=== PATIENT | female | born 1960 | race Caucasian/White ===

== ENCOUNTER 2024-01-21 10:43 | Outpatient (AMB) | payer MEDICARE, SELFPAY ==
[2024-01-21 11:07] VITALS: BP 130/72; PULSE 90; O2SAT 96; BMI 19.6
--- NOTE | 2024-01-21 11:07 | A.OFFVIS_ITS ---
Vital Signs 01/21/24 11:07 Height 5 ft 2 in Weight 107 lb 3 oz BMI 19.6 BP 130/72 Blood Pressure Location Lt brachial Position Sitting Pulse 90 Pulse Source Pulse Oximeter Pulse Oximetry (%) 96 Oxygen Delivery Method Room Air Intake Visit Reasons: arth/CM apt Intake Note: Patient presents today for psoriatic arthritis. Allergies dexamethasone [From Decadron] Allergy (Intermediate, Verified 01/21/24 11:10) Itchy rash medical tapes Adverse Reaction (Mild, Uncoded 01/21/24 11:11) Rash HPI HPI arth/CM apt: Details: She has not had Enbrel for a week as she does not have any refills. Since being on Enbrel for at least 6 months she has had no benefit. Hands are swollen. She has decreased mobility. Hard to move arms. 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 [facility] Medical History (Updated 01/21/24 @ 11:46 by Aoln Viera MD) Psoriatic arthritis Low back pain Bilateral cataracts FH: cholecystectomy Ulnar nerve compression Surgical History (Updated 01/21/24 @ 11:27 by Courtney Ron CMA) History of hysterectomy S/P tonsillectomy Previous back surgery Review of Systems Const All systems reviewed & are unremarkable except as noted in HPI and below Physical Exam Vital Signs: Last Vital Signs Pulse 90 01/21/24 11:07 BP 130/72 01/21/24 11:07 Pulse Ox 96 01/21/24 11:07 Oxygen Delivery Method Room Air 01/21/24 11:07 BMI result Body Mass Index 19.6 Assessment & Plan Assessment & Plan (1) Psoriatic arthritis: Comment: Uncontrolled on monotherapy with Enbrel. She has had treatment failure. We discussed next steps in treatment with DMARD therapy. We discussed side effects, benefits and drug monitoring on Cosentyx. We will treat current symptoms with a course of prednisone. She has tolerated prednisone without any side effects or exacerbation of psoriasis. 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 Code(s): L40.50 - Arthropathic psoriasis, unspecified Category: Medical Plan: Labs for disease and drug monitoring on high-risk medication ordered. After lab results are back, we will send PA for Cosentyx to [facility] pharmacy. As soon as she receives Cosentyx, she will need nurse visit for teaching and labs ordered a month after starting Cosentyx. Return to clinic in 3 months Requesting records from [facility] Orders: Orders Alanine Aminotransferase Today L40.50 - Arthropathic psoriasis, unspecified Aspartate Amino Transferase Today L40.50 - Arthropathic psoriasis, unspecified C Reactive Protein Today L40.50 - Arthropathic psoriasis, unspecified T Spot TB Today L40.50 - Arthropathic psoriasis, unspecified Erythrocyte Sedimentation Rate Today L40.50 - Arthropathic psoriasis, unspecified Hepatitis B,C Profile Today L40.50 - Arthropathic psoriasis, unspecified Complete Blood Count Auto Diff Today L40.50 - Arthropathic psoriasis, unspecified Creatinine Today L40.50 - Arthropathic psoriasis, unspecified Medications: New prednisone Take 4 tablets daily 5 days, 3 tablets daily 5 days, 2 tablets daily 5 days, 1 tablet daily 5 days then stop. Take prednisone with food. 5 mg PO DIRECTED 50 tabs 0RF Coding Level of Care Code Est Pt Level 4 (23126) Complex EM visit Add On G2211 Diagnoses Psoriatic arthritis L40.50
--- OUTSIDE RECORDS SUMMARY | 2024-01-27 01:42 | XMS_ITS | Continuity of Care Document ---
Author Organization [facility], Main Office Address [address] [place] [address] Care Team Providers Care Fire Prevention Specialist Name Role Phone JOEL DAO Outpatient Therapist VALENTÍN MONTERO Psychiatrist KESHIA COOPER [employer] [place] LARA Primary Care Provider CORWIN DAVISON Outpatient Therapist [phone] RANDI CAMARENA Neurophysiologist [phone] JASON ONEAL Pain Management DANIEL BENJAMIN Geriatric Medicine SHADI CARVALHO Neuropsychologist [phone] Assessment No assessment recorded. Plan of Treatment Reminders Order Date Submit Date Provider Last Modified By Organization Details Last Modified Time Details Appointments Follow Up DM 30 2024 10:30A M Ky Lara PA-C Not available Not available Not available AWV30 2024 10:30A M Ky Lara PA-C Not available Not available Not available Lab lipid panel, serum 2023 ANDREW [facility], [address] , [address], [address], 11/23/2023 11:22:03 CK (creatine kinase), total, serum 2023 024 ANDREW [facility], [address] , [address], [place], [address], 11/23/2023 11:22:03 Referral None recorded. Procedures None recorded. Surgeries None recorded. Imaging None recorded. Medication Orders albuterol sulfate HFA 90 mcg/actua tion aerosol inhaler 2023 [id number] [address] [facility][id number], [address] [place], [place], [id number], 11/26/2023 01:14:53 cyclobenz aprine 5 mg tablet 2023 [facility] #[id number], [address] [place], [place], [id number], 11/23/2023 11:22:01 pantopraz ole 40 mg tablet,de layed release 2023 [facility] #[id number], [address] [place], [place], [id number], 11/23/2023 11:22:01 Patient Targets Encounter Date Encounter Id Patient Goals Patient Target Last Modified By Organization Details Last Modified Time 11/23/2023 [id number] Ongoing of Microalbumin/Cre atinine Ratio yearly Not available Not available Not available Ongoing of Blood Pressure Not available Not available Not available Ongoing of Hemoglobin A1C 2 times per yr Not available Not available Not available Ongoing of Hemoglobin A1C <7 Not available Not available Not available Ongoing of LDL Direct <100 Not available Not available Not available Ongoing of Cholesterol, LDL <100 Not available Not available Not available Pt advised and agrees to do moderate exercise (such as walking) for approximately 150 minutes per week; to decrease carbohydrate intake (25 % of total carbohydrates or less); and to monitor blood glucose as directed Will bring meter and/or readings to appointments. Patient preferences and goals incorporated in plan and updated/modified as needed to reflect progress toward goal. [email or web address] Not available 11/23/2023 11:14:05 Patient Instructions Encounter Date Encounter Id Patient Instructions Last Modified By Organization Details Last Modified Time 11/23/2023 [id number] Medications (OTC , herbal therapies, supplements) reviewed and reconciled with patient and or caregiver, including potential side effects, drug interactions, instructions, and the consequences of not taking medication. Reviewed potential barriers to medication adherence, such as side effects from medication or cost of medication. [email or web address] Not available 11/23/2023 11:21:58 Reason for Referral None Reported. Problems Name Problem SNOMED Code Status Onset Date Resolution Date Notes Provider Name and Address Organization Details Recorded Time Electroc karen elliott abnormal [id number] Completed 200708/30/2013 RECORDED 10/01/19 08 8:29AM BY MARLYS MILAN MA, ANNOTATI ON/ADDEN DUM MEDINA Rouse, [facility] 6 10:51:32 Acute asthma 516558176 Completed 201208/30/2013 RECORDED 06/25/19 13 2:34PM BY MARLYS MILAN MA, ANNOTATI ON/ADDEN DUM MEDINA Rouse, [facility] 6 10:51:32 Acute bronchit is 86956388 Completed 200708/30/2013 RECORDED 10/01/19 08 8:29AM BY MARLYS MILAN MA, ANNOTSILVER ON/ADDEN DUM MEDINA Rouse, [facility] 6 10:51:32 Acute sinusiti s 98489591 Completed 201208/30/2013 RECORDED 06/25/19 13 2:34PM BY MARLYS MILAN MA, ANNOTSILVER ON/ADDEN DUM MEDINA Rouse, [facility] 6 10:42:01 Asthma 281980604 Active Not Available [facility] 4 19:50:26 Intrinsi c asthma 746317181 Completed 201108/30/2013 RECORDED 09/04/19 12 12:56PM BY MARLYS MILAN MA, ANNOTSILVER ON/ADDEN DUM MEDINA Rouse, [facility] 6 10:51:32 Screenin g for malignan t neoplasm of breast Completed 201208/30/2013 RECORDED 09/21/19 13 12:45PM BY ARLIN LIGHT MA, ANNOTATI ON/ADDEN DUM MEDINA Rouse, [facility] 6 10:51:32 Cellulit is and abscess of face [id number] Completed 200808/30/2013 RESOLVED DATE: 07/04/19 09; IMPRESSI ON: PT IS IMMUNE SUPPRESS ED WITH HUMIRA FOR RA, TREAT WITH LEVAQUIN ; RECORDED 07/04/19 09 9:11PM BY JORGE Rai NP, ANNOTSILVER ON/ADDEN DUM MEDINA Rouse, [facility] 6 10:51:32 Chronic pain syndrome 038739983 Active Not Available [facility] 4 19:50:26 Chronic pain syndrome 541953162 Completed 201208/30/2013 RECORDED 03/17/19 13 9:38AM BY MARLYS MILNA MA, MIGDALIA ON/ADDEN DUM MEDINA Rouse, [facility] 6 10:51:32 Screenin g for malignan t neoplasm of colon Completed 201108/30/2013 RECORDED 09/04/19 12 12:56PM BY MARLYS MILAN MA, ANNOTATI ON/ADDEN DUM MEDINA Rouse, [facility] 6 10:51:32 Cough 75168844 Completed 201208/30/2013 RECORDED 06/25/19 13 2:34PM BY MARLYS MILAN MA, ANNOTATI ON/ADDEN DUM MEDINA Rouse, [facility] 6 10:51:32 General symptom 586292699 Completed 201108/30/2013 STORY: SIGNIFIC ANT DECREASE IN EXERCISE TOLERANC E WITH TACHYCAR DEANNA.; RECORDED 09/04/19 12 12:56PM BY MARLYS MILAN MA, ANNOTATI ON/ADDEN DUM MEDINA Rouse, [facility] 6 10:51:32 Depressi ve disorder 94302183 Completed 02/26/2015 Meme Fernandez ruth, [facility] 4 15:15:46 Type 2 diabetes mellitus without complica tion 464862131 Completed 05/01/2017 MEDINA Rouse, [facility] 9 11:30:03 Diarrhea 46952540 Completed 201208/30/2013 IMPRESSI ON: RESOLVIN G PER PT. HAD A FORMED STOOL. SHE DID NOT DO THE STOOL TESTING AND WILL HOLD OFF SINCE DOES NOT HAVE LIQUID STOOL.; RECORDED 03/17/19 13 9:35AM BY MARLYS MILAN MA, MIGDALIA ON/ADDEN DUM MEDINA Rouse, [facility] 6 10:42:42 Dysphagi a [id number] Completed 200708/30/2013 RESOLVED DATE: 01/20/20 08; RECORDED 01/20/20 08 4:23PM BY JORGE Rai NP, MIGDALIA ON/ADDEN DUM MEDINA Rouse, [facility] 6 10:51:32 Edema 735065193 Completed 201208/30/2013 RECORDED 09/21/19 13 12:45PM BY ARLIN LIGHT MA, MIGDALIA ON/ADDEN DUM MEDINA Rouse, [facility] 6 10:51:32 Long-ter m drug therapy Completed 201208/30/2013 RECORDED 05/19/19 13 12:57PM BY MARLYS MILAN MA, MIGDALIA ON/ADDEN DUM MEDINA Rouse, [facility] 6 10:51:32 Gastroes ophageal reflux disease 199317516 Active Not Available [facility] 4 19:50:26 Essentia l hyperten kris 46775664 Completed 03/15/2022 Ky Lara PA-C [address] [facility] [address], [place], [address] , [facility] 3 10:04:39 Exophtha lmos 54486927 Completed 201108/30/2013 RECORDED 09/04/19 12 12:56PM BY MARLYS MILAN MA, MIGDALIA ON/ADDEN DUM MEDINA Rouse, [facility] 6 10:51:32 Influenz a vaccine needed [id number] 06 Completed 201208/30/2013 RECORDED 10/23/19 13 4:09PM BY AUDIE OLIVARES, OFFICE VISIT MEDINA Rouse [facility] 6 10:51:32 Tobacco user 404392848 Completed 08/29/2015 MEDINA Rouse, [facility] 6 09:59:57 History of clinical finding in subject 865256293 Completed 01/29/2016 MEDINA Rouse, [facility] 6 10:42:37 Adult health examinat ion Completed 01/29/2016 MEDINA Rouse [facility] 6 10:42:26 Follow-u p encounte r Completed 201308/30/2013 RECORDED 05/12/19 14 2:21PM BY ANAMARIA RIVERA MA, MIGDALIA ON/ADDEN DUM MEDINA Rouse [facility] 6 10:51:32 Hyperlip idemia 18885044 Active Not Available [facility] 4 19:50:26 Immunosu ppressio n [id number] Completed 201108/30/2013 RECORDED 04/23/19 12 1:24PM BY MIGDALIA MEZA ON/ADDEN DUM MEDINA Rouse, [facility] 6 10:51:32 Kidney stone 64464639 Completed 201108/30/2013 RECORDED 09/04/19 12 12:56PM BY MARLYS MILAN MA, ANNOTSILVER ON/ADDEN DUM MEDINA Rouse, [facility] 6 10:51:32 Laborato ry procedur e performe d 576394108 Completed 201308/30/2013 RECORDED 05/12/19 14 2:21PM BY ANAMARIA RIVERA MA, ANNOTSILVER ON/ADDEN DUM MEDINA Rouse, [facility] 6 10:51:32 Leukocyt osis 806126631 Completed 201208/30/2013 RECORDED 09/21/19 13 12:45PM BY ARLIN LIGHT MA, ANNOTATI ON/ADDEN DUM MEDINA Rouse, [facility] 6 10:51:32 Spinal stenosis of lumbar region 88028702 Active Not Available [facility] 4 19:50:26 Lyme disease 18154146 Completed 201008/30/2013 RECORDED 02/18/19 11 1:17PM BY JASON IRIZARRY MD, ANNOTSILVER ON/ADDEN DUM MEDINA Rouse, [facility] 6 10:51:32 Malaise and fatigue 798159921 Completed 201208/30/2013 RECORDED 12/12/19 13 8:53AM BY MARLYS MILAN MA, ANNOTSILVER ON/ADDEN DUM MEDINA Rouse, [facility] 6 10:51:32 Renewal of prescrip tion Completed 201208/30/2013 RECORDED 05/19/19 13 12:57PM BY MARLYS MILAN MA, ANNOTATI ON/ADDEN DUM MEDINA Rouse, [facility] 6 10:51:32 Ulcerati ve rhinitis 80419123 Completed 200808/30/2013 DATE: 07/04/19 09; RECORDED 09/04/19 12 12:56PM BY MARLYS MILAN MA, ANNOTATI ON/ADDEN DUM MEDINA Rouse, [facility] 6 10:51:32 Obstruct kaye sleep apnea syndrome 37718870 Completed 06/18/2020 Ky Lara PA-C [address] [facility] [address], [place], [address] , [facility] 1 11:29:15 Localize d, primary osteoart hritis of the shoulder region 548949958 Completed 03/15/2022 Ky Lara PA-C [address] [facility] [address], [place], [address] , [facility] 3 10:06:07 Bursitis 48241226 Completed 201108/30/2013 RECORDED 09/04/19 12 12:56PM BY MARLYS MILAN MA, ANNOTATI ON/ADDEN DUM MEDINA Rouse, [facility] 6 10:51:32 Otitis media 87504351 Completed 200808/30/2013 RESOLVED DATE: 07/04/19 09; RECORDED 07/04/19 09 9:11PM BY JORGE Rai NP, ANNOTATI ON/ADDEN DUM MEDINA Rouse, [facility] 6 10:51:32 Knee pain Completed 200708/30/2013 RECORDED 10/01/19 08 8:30AM BY MARLYS MILAN MA, ANNOTATI ON/ADDEN DUM Maritza miranda, [facility] 7 14:02:00 Peptic ulcer 08111496 Completed 201208/30/2013 RECORDED 03/11/19 13 1:05AM BY JORGE Rai NP, ANNOTATI ON/ADDEN DUM MEDINA Rouse, [facility] 6 10:51:32 Gastroin testinal obstruct ion 157166501 Completed 11/04/2016 Jason Irizarry MD [address], [place], [address] , [facility] 7 08:33:12 Persiste nt insomnia 162182620 Active Not Available [facility] 4 19:50:26 Pre-surg asher evaluati on Completed 201208/30/2013 IMPRESSI ON: WILL NEED CARDIOLO GY TO ALSO ASSESS HER PREOPERA TIVELY. SHE HAS HAD A 10 LB WEIGHT GAIN IN LAST MONTH AND NEW ONSET EDEMA. WANT TO MAKE SURE NO CHF. CARDIO TO EVALUATE VOLUME STATUS. SHE TAKES ALL HER MEDS AT NIGHT. DO THIS NIGHT BEFORE SURGERY. STOP HUMIRA 1 MONTH BEFORE SURGERY AND RESTART 2 WKS AFTER. SHE IS OK TO PROCEED WITH SURGERY FOR HER OTHER NON CARDIAC ISSUES; RECORDED 01/12/20 13 4:03PM BY MARLYS MILAN MA, ANNOTSILVER ON/ADDEN DUM MEDINA Rouse, [facility] 6 10:51:32 Psoriasi s [id number] Completed 03/15/2022 Ky Lara PA-C [address] [facility] [address], [place], [address] , [facility] 3 10:06:55 Urine finding 909167951 Completed 201208/30/2013 IMPRESSI ON: ADD CULTURE; RECORDED 09/21/19 13 12:45PM BY ARLIN LIGHT MA, ANNOTATI ON/ADDEN DUM MEDINA Rouse, [facility] 6 10:51:32 Acute respirat ory failure 09581949 Completed 201108/30/2013 RECORDED 09/04/19 12 12:56PM BY MARLYS MILAN MA, ANNOTATI ON/ADDEN DUM MEDINA Rouse, [facility] 6 10:51:32 Rheumato id arthriti s 11483342 Completed 11/04/2016 Jason Irizarry MD [address] [facility] [address], [place], [address] [facility] 7 08:33:58 Adult health examinat ion Completed 201108/30/2013 RECORDED 12/16/19 12 9:06AM BY MARLYS MILAN MA, ANNOTATI ON/ADDEN DUM MEDINA Rouse, [facility] 6 10:42:26 Morbid obesity 533055651 Active Not Available [facility] 4 19:50:26 Dyspnea 069767683 Completed 201208/30/2013 RECORDED 09/21/19 13 12:45PM BY ARLIN LIGHT MA, MIGDALIA ON/ADDEN DUM MEDINA Rouse, [facility] 6 10:51:32 Disorder of bursa of shoulder region 44408786 Completed 201208/30/2013 STORY: SHAYAN Javed HAS BEEN FOLLOWED BY DR. RAMACHANDRAN FOR RHEUMATO LOGY. UNDERLYI NG DIAGNOSI S OF RA AND PSORIATI C ARTHRITI S. HAS BEEN ON HUMIRA; RECORDED 09/21/19 13 12:45PM BY ARLIN LIGHT MA, MIGDALIA ON/ADDEN DUM MEDINA Rouse, [facility] 6 10:51:32 Conducti on disorder of the heart 27938780 Active Not Available [facility] 4 19:50:26 Administ ration of diphther ia and tetanus vaccine Completed 201208/30/2013 RECORDED 05/19/19 13 12:57PM BY MARLYS MILAN MA, ANNOTATI ON/ADDEN DUM MEDINA Rouse, [facility] 6 10:51:32 Full thicknes s rotator cuff tear 255668406 Completed 201208/30/2013 RECORDED 09/21/19 13 12:45PM BY ARLIN LIGHT MA, ANNOTATI ON/ADDEN DUM MEDINA Rouse, [facility] 6 10:51:32 Tobacco dependen ce syndrome 99261245 Completed 201108/30/2013 RECORDED 12/16/19 12 9:07AM BY MARLYS MILAN MA, ANNOTATI ON/ADDEN DUM MEDINA Rouse, [facility] 6 10:51:32 Essentia l hyperten kris 59269511 Completed 201108/30/2013 RECORDED 09/04/19 12 12:56PM BY MARLYS MILAN MA, ANNOTATI ON/ADDEN DUM Ky Lara PA-C [address] [facility] [address], [place], [address] , [facility] 3 10:04:39 Vitamin D deficien cy 13549293 Active Not Available [facility] 4 19:50:26 Electroc ardiogra m abnormal 136447102 Completed 200709/26/2013 RECORDED 10/01/19 08 8:29AM BY MARLYS MILAN MA, ANNOTATI ON/ADDEN DUM MEDINA Rouse, [facility] 6 10:51:32 Acute asthma 821532630 Completed 201209/26/2013 RECORDED 06/25/19 13 2:34PM BY MARLYS MILAN MA, ANNOTATI ON/ADDEN DUM MEDINA Rouse, [facility] 6 10:51:32 Acute bronchit is 16018691 Completed 200709/26/2013 RECORDED 10/01/19 08 8:29AM BY MARLYS MILAN MA, ANNOTSILVER ON/ADDEN DUM MEDINA Rouse, [facility] 6 10:51:32 Acute sinusiti s 92251786 Completed 201209/26/2013 RECORDED 06/25/19 13 2:34PM BY MARLYS MILAN MA, ANNOTATI ON/ADDEN DUM MEDINA Rouse, [facility] 6 10:42:01 Intrinsi c asthma 514177082 Completed 201109/26/2013 RECORDED 09/04/19 12 12:56PM BY MARLYS MILAN MA, ANNOTSILVER ON/ADDEN DUM MEDINA Rouse, [facility] 6 10:51:32 Screenin g for malignan t neoplasm of breast Completed 201209/26/2013 RECORDED 09/21/19 13 12:45PM BY ARLIN LIGHT MA, ANNOTSILVER ON/ADDEN DUM MEDINA Rouse, [facility] 6 10:51:32 Cellulit is and abscess of face 061105485 Completed 200809/26/2013 RESOLVED DATE: 07/04/19 09; IMPRESSI ON: PT IS IMMUNE SUPPRESS ED WITH HUMIRA FOR RA, TREAT WITH LEVAQUIN ; RECORDED 07/04/19 09 9:11PM BY JORGE Rai NP, MIGDALIA ON/ADDEN DUM MEDINA Rouse, [facility] 6 10:51:32 Screenin g for malignan t neoplasm of colon Completed 201109/26/2013 RECORDED 09/04/19 12 12:56PM BY MARLYS MILAN MA, ANNOTATI ON/ADDEN DUM MEDINA Rouse, [facility] 6 10:51:32 Cough [id number] Completed 201209/26/2013 RECORDED 06/25/19 13 2:34PM BY MARLYS MILAN MA, MIGDALIA ON/ADDEN DUM MEDINA Rouse, [facility] 6 10:51:32 General symptom 073656361 Completed 201109/26/2013 STORY: SIGNIFIC ANT DECREASE IN EXERCISE TOLERANC E WITH TACHYCAR DEANNA.; RECORDED 09/04/19 12 12:56PM BY MARLYS MILAN MA, ANNOTATI ON/ADDEN DUM MEDINA Rouse, [facility] 6 10:51:32 Diarrhea 01043650 Completed 201209/26/2013 IMPRESSI ON: RESOLVIN G PER PT. HAD A FORMED STOOL. SHE DID NOT DO THE STOOL TESTING AND WILL HOLD OFF SINCE DOES NOT HAVE LIQUID STOOL.; RECORDED 03/17/19 13 9:35AM BY MARLYS MILAN MA, ANNOTATI ON/ADDEN DUM MEDINA Rouse, [facility] 6 10:42:42 Dysphagi a 61643988 Completed 200709/26/2013 RESOLVED DATE: 01/20/20 08; RECORDED 01/20/20 08 4:23PM BY JORGE Rai NP, MIGDALIA ON/ADDEN DUM MEDINA Rouse, [facility] 6 10:51:32 Edema [id number] Completed 201209/26/2013 RECORDED 09/21/19 13 12:45PM BY ARLIN LIGHT MA, MIGDALIA ON/ADDEN DUM MEDINA Rouse, [facility] 6 10:51:32 Long-ter m drug therapy Completed 201209/26/2013 RECORDED 05/19/19 13 12:57PM BY MARLYS MILAN MA, MIGDALIA ON/ADDEN DUM MEDINA Rouse, [facility] 6 10:51:32 Exophtha lmos 95284528 Completed 201109/26/2013 RECORDED 09/04/19 12 12:56PM BY MARLYS MILAN MA, MIGDALIA ON/ADDEN DUM MEDINA Rouse, [facility] 6 10:51:32 Influenz a vaccine needed 83555187380 06 Completed 201209/26/2013 RECORDED 10/23/19 13 4:09PM BY AUDIE OLIVARES, OFFICE VISIT MEDINA Rouse, [facility] 6 10:51:32 Follow-u p encounte r Completed 201309/26/2013 RECORDED 05/12/19 14 2:21PM BY ANAMARIA RIVERA MA, MIGDALIA ON/ADDEN DUM MEDINA Rouse, [facility] 6 10:51:32 Immunosu ppressio n [id number] Completed 201109/26/2013 RECORDED 04/23/19 12 1:24PM BY MIGDALIA MEZA ON/ADDEN DUM MEDINA Rouse, [facility] 6 10:51:32 Kidney stone 04381337 Completed 201109/26/2013 RECORDED 09/04/19 12 12:56PM BY MARLYS MILAN MA, MIGDALIA ON/ADDEN DUM MEDINA Rouse, [facility] 6 10:51:32 Laborato ry procedur e performe d 556175640 Completed 201309/26/2013 RECORDED 05/12/19 14 2:21PM BY ANAMARIA RIVERA MA, ANNOTATI ON/ADDEN DUM MEDIAN Rouse, [facility] 6 10:51:32 Leukocyt osis 055005424 Completed 201209/26/2013 RECORDED 09/21/19 13 12:45PM BY ARLIN LIGHT MA, ANNOTATI ON/ADDEN DUM MEDINA Rouse, [facility] 6 10:51:32 Lyme disease 86444490 Completed 201009/26/2013 RECORDED 02/18/19 11 1:17PM BY JASON IRIZARRY MD, ANNOTATI ON/ADDEN DUM MEDINA Rouse, [facility] 6 10:51:32 Malaise and fatigue 187421263 Completed 201209/26/2013 RECORDED 12/12/19 13 8:53AM BY MARLYS MILAN MA, ANNOTATI ON/ADDEN DUM MEDINA Rouse, [facility] 6 10:51:32 Renewal of prescrip tion Completed 201209/26/2013 RECORDED 05/19/19 13 12:57PM BY MARLYS MILAN MA, ANNOTSILVER ON/ADDEN DUM MEDINA Rouse, [facility] 6 10:51:32 Ulcerati ve rhinitis 43366942 Completed 200809/26/2013 DATE: 07/04/19 09; RECORDED 09/04/19 12 12:56PM BY MARLYS MILNA MA, ANNOTSILVER ON/ADDEN DUM MEDINA Rouse, [facility] 6 10:51:32 Bursitis 68793293 Completed 201109/26/2013 RECORDED 09/04/19 12 12:56PM BY MARLYS MILAN MA, ANNOTATI ON/ADDEN DUM MEDINA Rouse, [facility] 6 10:51:32 Otitis media 23901833 Completed 200809/26/2013 RESOLVED DATE: 07/04/19 09; RECORDED 07/04/19 09 9:11PM BY JORGE Rai NP, MIGDALIA ON/ADDEN DUM MEDINA Rouse, [facility] 6 10:51:32 Knee pain Completed 200709/26/2013 RECORDED 10/01/19 08 8:30AM BY MARLYS MILAN MA, ANNOTATI ON/ADDEN DUM Maritza miranda, [facility] 7 14:02:00 Peptic ulcer 93412565 Completed 201209/26/2013 RECORDED 03/11/19 13 1:05AM BY JORGE Rai NP, ANNOTSILVER ON/ADDEN DUM MEDINA Rouse, [facility] 6 10:51:32 Pre-surg asher samina on Completed 201209/26/2013 IMPRESSI ON: WILL NEED CARDIOLO GY TO ALSO ASSESS HER PREOPERA TIVELY. SHE HAS HAD A 10 LB WEIGHT GAIN IN LAST MONTH AND NEW ONSET EDEMA. WANT TO MAKE SURE NO CHF. CARDIO TO EVALUATE VOLUME STATUS. SHE TAKES ALL HER MEDS AT NIGHT. DO THIS NIGHT BEFORE SURGERY. STOP HUMIRA 1 MONTH BEFORE SURGERY AND RESTART 2 WKS AFTER. SHE IS OK TO PROCEED WITH SURGERY FOR HER OTHER NON CARDIAC ISSUES; RECORDED 01/12/20 13 4:03PM BY MARLYS MILAN MA, ANNOTATI ON/ADDANGUS DUM MEDINA Rouse, [facility] 6 10:51:32 Urine finding 454083514 Completed 201209/26/2013 IMPRESSI ON: ADD CULTURE; RECORDED 09/21/19 13 12:45PM BY ARLIN LIGHT MA, ANNOTATI ON/ADDEN DUM MEDINA Rouse, [facility] 6 10:51:32 Acute respirat ory failure 07790279 Completed 201109/26/2013 RECORDED 09/04/19 12 12:56PM BY MARLYS MILAN MA, ANNOTSILVER ON/ADDEN DUM MEDINA Rouse, [facility] 6 10:51:32 Dyspnea 106655021 Completed 201209/26/2013 RECORDED 09/21/19 13 12:45PM BY ARLIN LIGHT MA, ANNOTSILVER ON/ADDEN DUM MEDINA Rouse, [facility] 6 10:51:32 Disorder of bursa of shoulder region 16322214 Completed 201209/26/2013 STORY: SHAYAN Javed HAS BEEN FOLLOWED BY DR. RAMACHANDRAN FOR RHEUMATO LOGY. UNDERLYI NG DIAGNOSI S OF RA AND PSORIATI C ARTHRITI S. HAS BEEN ON HUMIRA; RECORDED 09/21/19 13 12:45PM BY ARLIN LIGHT MA, ANNOTSILVER ON/ADDEN DUM MEDINA Rouse, [facility] 6 10:51:32 Administ ration of diphther ia and tetanus vaccine Completed 201209/26/2013 RECORDED 05/19/19 13 12:57PM BY MARLYS MILAN MA, ANNOTSILVER ON/ADDEN DUM MEDINA Rouse, [facility] 6 10:51:32 Full thicknes s rotator cuff tear 108287528 Completed 201209/26/2013 RECORDED 09/21/19 13 12:45PM BY ARLIN LIGHT MA, ANNOTSILVER ON/ADDEN DUM MEDINA Rouse, [facility] 6 10:51:32 Tobacco dependen ce syndrome 61954573 Completed 201109/26/2013 RECORDED 10/30/20 12 9:07AM BY MARLYS MILAN MA, ANNOTATI ON/ADDEN DUM MEDINA Rouse, [facility] 6 10:51:32 Body mass index 40+ - severely obese 847347308 Completed 02/27/2015 Meme miranda [facility] 3 10:07:59 Acute sinusiti s 72373439 Completed 01/29/2016 MEDINA Rouse [facility] 6 10:42:01 Sinusiti s 17449028 Completed 01/29/2016 MEDINA Rouse, [facility] 6 10:42:32 Body mass index 30+ - obesity 075070082 Completed 03/15/2022 Ky Lara PA-C [address], [place], [address] , [facility] 3 10:03:53 Low back pain 904011609 Completed 03/13/2022 Ky Lara PA-C [address], [place], [address] , [facility] 3 14:00:57 Major depressi ve disorder 297465428 Completed 03/15/2022 Ky Lara PA-C [address] [facility] [address], [place], [address] , [facility] 3 10:05:36 Blood in urine 67879441 Completed 07/02/2016 Maritza miranda [facility] 7 14:02:09 Diarrhea 35005073 Completed 01/29/2016 MEDINA Rouse [facility] 6 10:42:42 Right lower quadrant pain 168539080 Completed 11/03/2016 MEDINA Rouse [facility] 7 13:03:20 Ex-smoke r 4194651 Active 2015 Not Available [facility] 4 19:50:27 Shoulder pain 41327383 Completed 07/02/2016 Maritza miranda, [facility] 7 14:02:03 Knee pain Completed 07/02/2016 Maritza miranda, [facility] 7 14:02:00 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 42386466 Active Not Available [facility] 4 19:50:27 Diabetic peripher al neuropat hy 565801732 Active 2016 Not Available [facility] 4 19:50:26 Vitamin B12 deficien cy (non anemic) 47598239 Active 2017 Not Available [facility] 4 19:50:26 Muscle pain 65583531 Active 2017 Not Available [facility] 4 19:50:27 Type 2 diabetes mellitus 80211652 Completed 201805/24/2018 MEDINA Rouse, [facility] 9 14:25:08 Type 2 diabetes mellitus without complica tion 148793510 Completed 10/12/2018 well controll ed after bariatri c surgery in 12/2013 MEDINA Rouse, [facility] 9 11:30:03 Hypergly cemia [id number] Completed 201803/15/2022 Ky Lara PA-C [address] [facility] [address], [place], [address] , [facility] 3 10:04:55 Obesity [id number] Completed 201806/18/2020 Fabi Bates RN null, [facility] 1 15:35:04 Obstruct kaye sleep apnea of adult [id number] 03 Completed 202003/13/2022 Dx: G47.33 (mild) Ky Lara PA-C [address], [place], [address] , [facility] 3 13:58:48 Obstruct kaye sleep apnea syndrome [id number] Active 2020 Not Available [facility] 4 19:50:27 Severe dry skin 842739731 Active 2020 Not Available [facility] 4 19:50:27 Psoriati c arthriti s 242995650 Active 2021 Not Available [facility] 4 19:50:26 Pain of right shoulder joint [id number] 680786 Active 2021 Not Available [facility] 4 19:50:26 COVID-19 385232057 Active 2022 Not Available [facility] 4 19:50:27 Pneumoni tis [id number] Completed 202203/15/2022 Ky Lara PA-C [address], [place], [address] , [facility] 3 10:06:45 Hyperten sive renal disease 96799069 Active 2022 Not Available [facility] 4 19:50:26 Chronic kidney disease stage 2 978743624 Active 2022 Not Available [facility] 4 19:50:26 Iron deficien cy anemia 82485807 Active 2022 Not Available [facility] 4 19:50:27 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 [id number] 92230 Active 2023 Ky Lara PA-C [address], [place], [address] , [facility] 4 10:51:38 Mild memory disturba nce 293371910 Completed 202311/23/2023 Ky aLra PA-C [address], [place], [address] , [facility] 4 11:03:27 Mild major depressi on, single episode 23146896 Active 2023 Meme Fernandez ruth, [facility] 4 15:15:35 Mild neurocog nitive disorder 244773263 Active 2023 Ky Lara PA-C [address] [facility] [address], [place], [address] , [facility] 4 14:50:45 Notes:Some problems listed i n Documents: #[id number], #[id number], #[id number] could not be added to this patient's chart. Please review these documents and add these problems to the patient's chart manually as needed. Problem Notes None recorded. Procedures Surgical History Date Name Laterality Status Provider Name and Address Organization Details Recorded Time 2023 injection of sacroiliac joint completed Sonia Andrea [facility] 4 10:41:48 2023 diabetic retinopathy screening completed Sonia Andrea [facility] 4 12:36:50 2022 Chronic Pain Assessment completed Kesha Strauss MA [facility] 3 10:46:00 2022 Colonoscopy completed Sonia Andrea [facility] 3 11:35:01 2022 esophagogastroduodenoscopy completed Issa Andrea [facility] 3 11:35:07 2020 Diabetic Foot Exam (Monofilament) completed Ky Lara PA-C [address] [facility] [address], [place], [address], [facility] 1 21:06:41 2020 polysomnography completed Marlys matias MA [facility] 1 15:44:34 2020 arthroplasty of left shoulder completed Marlys matias MA [facility] 1 15:35:54 2019 Orthopedic Surgery completed Marlys matias MA [facility] 1 15:36:33 2018 injection completed Martita Yasir [facility] 9 10:18:41 2018 Diabetic Foot Exam (Monofilament) completed Marlys matias MA [facility] 9 14:23:33 2018 release of trigger thumb completed Marlys matias MA [facility] 9 14:36:23 2017 Diabetic Foot Exam (Monofilament) completed Marlys matias MA [facility] 8 10:31:14 2017 Glaucoma surgery completed Jason Irizarry MD [address], [place], [address], [facility] 8 11:14:40 2016 Carpal tunnel surgery completed Marlys matias MA [facility] 8 11:06:27 2016 Nerve surgery completed Jason Irizarry MD [address], [place], [address], [facility] 8 11:46:25 2016 Mini-Cog Test completed Marlys matias MA [facility] 7 13:00:13 2016 Chronic Pain Assessment completed Marlys matias MA [facility] 7 12:59:42 2016 Most Recent Mammogram completed Virginia Honeycutt [facility] 9 10:15:24 2016 Other completed Areli Cruz [facility] 7 14:27:22 2016 decompression of lumbar spine completed Marlys matias MA [facility] 1 15:51:46 2013 Lap sleeve gastrectomy completed Maritza Barragan MA [facility] 4 13:26:44 2012 Date of Last Colonoscopy completed Maritza Barragan MA [facility] 5 09:28:05 2008 Mammogram screening completed Marlys matias MA [facility] 8 11:10:32 Total hysterectomy completed Marlys matias MA [facility] 7 14:44:54 Back Surgery completed Marlys matias MA [facility] 8 11:10:06 Cholecystectomy completed RACHELL Chester [address] [facility] [address], [facility] [place], [address], [facility] 4 10:19:07 Hernia Repair completed RACHELL Chester [address] [facility] [address], [facility] [place], [address], [facility] 4 10:19:07 Imaging Results None recorded. Procedure Notes None recorded. Medical Equipment None Reported. Allergies Allergen ID Allergen Name Allergen Category Reaction Reaction Severity Criticality Documentation Date Start Date Code Code System Note Provider Name and Address Organization Details Recorded Time 15289 adhesive environme nt,medica tion rash Not available Not available 03/14/2016 MEDINA Bowers [facility] 7 14:43:07 6387 Cleocin medicatio n hives itching Not available Not available Not available 08/30/20132013 2 RxNorm MEDINA Bowers [facility] 7 14:42:54 6388 codeine medicatio n Not available Not available Not available 08/30/20132012 2670 RxNorm NAUSE A Not Available [facility] 4 19:50:25 6389 Decadron medicatio n hives itching Not available Not available Not available 08/30/20132013 69225 2 RxNorm Marlys matias [facility] 7 14:42:50 Medications Name Sig Start Date Stop Date Status Note LastModified by Organization Details LastModified Time tetracycl ine 500 mg capsule TWO TIMES DAILY 09/14 completed RECORDED 09/15/19 10 1:08PM BY MARLYS MILAN MA, OFFICE VISIT; Not Available Not Available Not Available furosemid e 40 mg tablet DAILY 08/19 completed RECORDED 08/22/19 10 1:29PM BY JASON IRIZARRY MD, MEDICATI ON AUTO-BRENDON CTIVATIO N; Not Available Not Available Not Available azithromy lawrence 250 mg capsule DAILY 08/22 completed RECORDED 08/23/19 08 1:16PM BY JORGE Rai NP, MEDICATI ON AUTO-BRENDON CTIVATIO N;2 TABS TODAY, 1 TAB QD X 4 Not Available Not Available Not Available latanopro st 0.005 % eye drops INSTILL 1 DROP INTO AFFECTED EYE(S) BY OPHTHALM IC ROUTE ONCE DAILY INTHE EVENING 05/01 completed on travatan Not Available Not Available Not Available Miralax 17 gram/dose oral powder Take 17 g every day by oral route. 11/06 completed Not Available Not Available Not Available dicloxaci llin 500 mg capsule TAKE ONE CAPSULE BY MOUTH FOUR TIMES DAILY ON AN EMPTY STOMACH 10/09 completed as per ortho -- for L sh infxn x 1 yr Not Available Not Available Not Available bupropion HCl SR 150 mg tablet,12 hr sustained -release Take 1 tablet every day by oral route for 30 days. 11/22 completed Not Available Not Available Not Available acetamino phen 325 mg tablet Take 2 tablets every 6 hours by oral route as needed. 07/02 completed Not Available Not Available Not Available prednison e 10 mg tablet Take 5 pills by mouth daily for 2 days, then 4 pills daily for 2 days, then 3 daily for 2 days, the 2 daily for 2 days, then 1 daily for 2 days. 03/05 completed Not Available Not Available Not Available doxycycli ne hyclate 100 mg capsule Take 1 capsule twice a day by oral route for 90 days. 10/09 completed as per ortho - L sh infxn Not Available Not Available Not Available atorvasta tin 20 mg tablet TAKE 1 TABLET BY MOUTH EVERY DAY AT BEDTIME active Not Available Not Available No t Available venlafaxi ne 75 mg tablet DAILY 12/31 completed RECORDED 01/01/20 13 3:03PM BY ARLIN LIGHT MA, OFFICE VISIT;DR Ra CASANOVA Not Available Not Available Not Available donepezil 5 mg tablet Take 1 tablet every day by oral route at bedtime for 30 days. 11/09 completed 9.24 - not refilled , ? why Not Available Not Available Not Available Vitamin C 500 mg tablet Take 1 tablet every day by oral route. 10/11 completed Not Available Not Available Not Available amitripty line 150 mg tablet Take 1 tablet every day by oral route at bedtime for 90 days. 10/11 completed for total of 175 mg Not Available Not Available Not Available azithromy lawrence 250 mg tablet 2 PO TODAY & 1 PO DAILY X 4. 03/13 completed Not Available Not Available Not Available aspirin 325 mg tablet Take 1 tablet every day by oral route as directed . 10/11 completed Not Available Not Available Not Available pravastat in 40 mg tablet TAKE 1 TABLET BY MOUTH DAILY active Not Available Not Available No t Available Morphine Sulfate IR 15 mg tablet Q 4HR/PRN 11/07 completed RECORDED 11/08/19 08 4:16PM BY JORGE Rai NP, JUDYATI ON/CHARLEE LUJAN; Not Available Not Available Not Available ofloxacin 0.3 % eye drops INSTILL ONE DROP INTO LEFT EYE FOUR TIMES DAILY 07/08 completed Not Available Not Available Not Available hydrocodo ne 5 mg-acetam inophen 325 mg tablet Take 1 tablet every day by oral route at bedtime for 10 days. 05/05 completed Not Available Not Available Not Available methylphe nidate 20 mg tablet BID 2007 active RECORDED 05/04/19 08 9:34AM BY OPHELIA GARCIA MA, JUDYATI ON/ DUM; Not Available Not Available Not Available senna 8.6 mg tablet Take 2 tablets every day by oral route at bedtime. 07/30 completed Not Available Not Available Not Available diltiazem CD 240 mg capsule,e xtended release 24 hr active Not Available Not Available Not Available meloxicam 15 mg tablet Take 1 tablet every day by oral route for 30 days. 03/13 completed Not Available Not Available Not Available prednison e 20 mg tablet Take 3 tablets every day by oral route as directed for 5 days. 07/08 completed Not Available Not Available Not Available doxycycli ne hyclate 50 mg capsule 02/20 completed Not Available Not Available Not Available prednison e 5 mg tablet 11/09 completed Not Available Not Available Not Available travopros t 0.004 % eye drops PLACE ONE DROP INTO BOTH EYES EVERY NIGHT AT BEDTIME 07/08 completed Not Available Not Available Not Available Advair Diskus 100 mcg-50 mcg/dose powder for inhalatio n BID 2007 active RECORDED 03/25/19 08 9:10PM BY JORGE Rai NP, MIGDALIA ON/; Not Available Not Available Not Available amoxicill in 400 mg chewable tablet Chew 2 tablets twice a day by oral route for 10 days. 2014 active Not Available Not Available Not Avai lable valacyclo vir 500 mg tablet TAKE 1 TABLET BY MOUTH THREE TIMES DAILY FOR 7 DAYS 08/16 completed Not Available Not Available Not Available omeprazol e 40 mg capsule,d elayed release DAILY active RECORDED 10/03/19 11 10:15AM BY TARYN SMITH I, MIGDALIA ON/ DUM;DR. RAMACHANDRAN Not Available Not Available Not Available Morphine Sulfate CR 15 mg tablet,ex tended release AT BEDTIME 03/31 completed RECORDED 04/07/19 13 1:44PM BY JASON IRIZARRY MD, MEDICATI ON AUTO-BRENDON CTIVATIO N; Not Available Not Available Not Available doxycycli ne monohydra te 100 mg tablet 11/09 completed Not Available Not Available Not Available bisoprolo l 2.5 mg-hydroc hlorothia zide 6.25 mg tablet QD 03/25 completed RECORDED 03/25/19 08 9:09PM BY JORGE Rai [employer], ANNOTATI ON/CHARLEE DUM; Not Available Not Available Not Available tramadol 50 mg tablet TAKE 2 TABLETS BY MOUTH THREE TIMES DAILY NEEDED 05/05 completed Not Available Not Available Not Available amitripty line 50 mg tablet Take 25 mg every day by oral route at bedtime. 10/11 completed for total of 175 mg Not Available Not Available Not Available acetamino phen 500 mg tablet TAKE 2 TABLETS BY MOUTH EVERY 8 HOURS AROUND THE CLOCK FOR PAIN 10/11 completed Not Available Not Available Not Available bupropion HCl SR 100 mg tablet,12 hr sustained -release 01/12 completed Not Available Not Available Not Available amoxicill in 500 mg tablet Take 1 tablet 3 times a day by oral route for 365 days. 10/11 completed Not Available Not Available Not Available pantopraz ole 20 mg tablet,de layed release Take 1 tablet every day by oral route as needed. 12/30 completed Not Available Not Available Not Available ketorolac 0.5 % eye drops Instill by ophthalm ic route for 25 days. 01/16 completed Not Available Not Available Not Available meloxicam 7.5 mg tablet 07/04 completed Not Available Not Available Not Available oxycodone -acetamin ophen 5 mg-325 mg tablet 1 PO QD PRN active Not Available Not Available No t Available hydromorp pedrito 2 mg tablet 10/09 completed Not Available Not Available Not Available alprazola m 0.25 mg tablet TAKE 1 TABLET BY MOUTH EVERY OTHER NIGHT active Not Available Not Available No t Available citalopra m 20 mg tablet DAILY 09/03 completed RECORDED 09/04/19 12 1:01PM BY MARLYS MILAN MA, OFFICE VISIT;MANNY CASANOVA Not Available Not Available Not Available amitripty line 25 mg tablet Take 4 tablets every day by oral route at bedtime. 05/24 completed Not Available Not Available Not Available prednisol one acetate 1 % eye drops,willi pension INSTILL ONE DROP INTO LEFT EYE FOUR TIMES DAILY 07/08 completed Not Available Not Available Not Available Vitamin C 1,000 mg tablet Take 1 tablet every day by oral route. 01/12 completed Not Available Not Available Not Available calcium 500 mg (as calcium carbonate 1,250 mg) tablet QD 12/11 completed RECORDED 12/12/19 13 8:57AM BY MARLYS MILAN MA, OFFICE VISIT; Not Available Not Available Not Available DOK 100 mg capsule TAKE ONE CAPSULE BY MOUTH UP TO TWICE DAILY DIRECTED NEEDED FOR CONSTIPA TION WHILE TAKING NARCOTIC MEDICATI ONS 10/11 completed Not Available Not Available Not Available acitretin 25 mg capsule QD 10/09 completed RECORDED 10/13/19 07 8:37PM BY JORGE Rai NP, OFFICE VISIT; Not Available Not Available Not Available gabapenti n 800 mg tablet Take 1 tablet 3 times a day by oral route for 30 days. 05/05 completed Not Available Not Available Not Available OneTouch Ultra Test strips TEST TWICE DAILY for E11.22 08/06 completed Not Available Not Available Not Available amitripty line 10 mg tablet Take 1 tablet as needed by oral route at bedtime for 30 days. 11/03 completed Not Available Not Available Not Available Bactroban 2 % topical ointment THREE TIMES DAILY 08/12 completed RECORDED 08/13/19 11 2:59PM BY MIGDALIA DREW ON/CHARLEE LUJAN; Not Available Not Available Not Available cephalexi n 500 mg capsule Take 1 capsule 4 times a day by oral route as directed for 365 days. 05/09 completed Not Available Not Available Not Available pantopraz ole 40 mg tablet,de layed release Take 1 tablet every day by oral route before meals for 90 days. active Not Available Not Available No t Available erythromy lawrence 5 mg/gram (0.5 %) eye ointment Apply 14 applicat ions every day by ophthalm ic route at bedtime for 7 days. 02/19 completed Not Available Not Available Not Available ferrous sulfate 325 mg (65 mg iron) tablet Take 2 tablets every day by oral route as directed for 30 days. 01/12 completed takes c vit C Not Available Not Available Not Available neomycin- polymyxin -dexameth 3.5 mg/mL-10, 000 unit/mL-0 .1% eye drops 07/08 completed Not Available Not Available Not Available lisinopri l 10 mg tablet TAKE 1 TABLET BY MOUTH EVERY DAY active Not Available Not Available No t Available Advair Diskus 250 mcg-50 mcg/dose powder for inhalatio n TWO TIMES DAILY 03/17 completed RECORDED 03/17/19 13 9:45AM BY MARLYS MILAN MA, OFFICE VISIT;PU LMONARY PRESCRIB ES Not Available Not Available Not Available Emy 30 mg capsule,e xtended release BID 11/07 completed RECORDED 11/08/19 08 4:16PM BY JORGE Rai NP, ANNOTATI ON/CHARLEE DUM; Not Available Not Available Not Available metoprolo l tartrate 50 mg tablet DAILY active Not Available Not Available Not Available indometha lawrence 50 mg capsule Take 1 capsule 3 times a day by oral route for 10 days. 02/27 completed Not Available Not Available Not Available Combivent 18 mcg-103 mcg/actua tion aerosol inhaler QID AND Q4HR PRN 09/14 completed RECORDED 09/15/19 10 2:11PM BY JASON IRIZARRY MD, OFFICE VISIT; Not Available Not Available Not Available Advair Diskus 500 mcg-50 mcg/dose powder for inhalatio n TWO TIMES DAILY 09/30 completed RECORDED 10/01/19 08 8:33AM BY MARLYS MILAN MA, OFFICE VISIT; Not Available Not Available Not Available gabapenti n 300 mg capsule TAKE 3 CAPSULES BY MOUTH THREE TIMES DAILY active Not Available Not Available No t Available omeprazol e 20 mg capsule,d elayed release Take 1 capsule every day by oral route for 30 days. 08/06 completed Not Available Not Available Not Available ammonium lactate 12 % topical cream APPLY TOPICALL Y TO THE AFFECTED AREA TWICE DAILY 01/12 completed Not Available Not Available Not Available lisinopri l 5 mg tablet Take 1 tablet every day by oral route. 03/13 completed Not Available Not Available Not Available amoxicill in 400 mg/5 mL oral suspensio n TAKE 2 TEASPOON SFUL BY MOUTH TWICE DAILY FOR 10 DAYS active Not Available Not Available No t Available MS Contin 30 mg tablet,ex tended release BID 03/25 completed RECORDED 03/25/19 08 9:11PM BY JORGE Rai NP, MIGDALIA ON/ADDEN DUM; Not Available Not Available Not Available MSir 30 mg tablet BID 03/25 completed RECORDED 03/25/19 08 9:12PM BY JORGE Rai NP, MIGDALIA ON/ADDEN DUM; Not Available Not Available Not Available lisinopri l 10 mg-hydroc hlorothia zide 12.5 mg tablet QD 03/25 completed RECORDED 03/25/19 08 9:11PM BY JORGE Rai NP, MIGDALIA ON/ADDEN DUM; Not Available Not Available Not Available cefuroxim e axetil 500 mg tablet TWO TIMES DAILY active RECORDED 10/03/19 11 10:15AM BY MIGDALIA FREEMAN ON/ADDEN DUM; Not Available Not Available Not Available levofloxa lawrence 500 mg tablet BID 08/28 completed Not Available Not Available Not Available Morphine Sulfate CR 30 mg tablet,ex tended release DAILY 05/25 completed RECORDED 05/26/19 12 9:35AM BY JASON IRIZARRY MD, MIGDALIA ON/ADDEN DUM; Not Available Not Available Not Available albuterol sulfate HFA 90 mcg/actua tion aerosol inhaler Inhale 2 puffs every 4 hours by inhalati on route as directed for 30 days. active Not Available Not Available No t Available diltiazem 30 mg tablet DAILY active RECORDED 10/03/19 11 10:15AM BY MIGDALIA FREEMAN ON/ADDEN DUM; Not Available Not Available Not Available hydromorp pedrito 4 mg tablet Take 1 tablet every 8 hours by oral route. 07/02 completed Not Available Not Available Not Available morphine ER 15 mg/12hr tablet,ex tended release Take 1 tablet every 8 hours by oral route. 07/02 completed Not Available Not Available Not Available ondansetr on 4 mg disintegr ating tablet DISSOLVE 1 TABLET BY MOUTH THREE TIMES DAILY 10/11 completed Not Available Not Available Not Available topiramat e 100 mg tablet DAILY 01/20 completed RECORDED 01/21/20 11 1:31PM BY TAWANDA BHATIA MA, OFFICE VISIT; Not Available Not Available Not Available fluticaso ne propionat e 50 mcg/actua tion nasal spray,willi pension SPRAY 2 SPRAYS IN EACH NOSTRIL ONCE DAILY 07/02 completed Not Available Not Available Not Available metformin ER 500 mg tablet,ex tended release 24 hr TAKE 2 TABLETS BY MOUTH DAILY FOR 1 WEEK, THEN INCREASE TO 4 TABLETS BY MOUTH DAILY active Not Available Not Available No t Available amitripty line 100 mg tablet TAKE 2 TABLETS BY MOUTH EVERY DAY active 10.24 - Takes 1 and 1/2 tablet at night Not Available Not Available Not Available docusate sodium 100 mg tablet Take 1 tablet twice a day by oral route as directed . 10/11 completed Not Available Not Available Not Available naproxen 500 mg tablet TAKE 1 TABLET BY MOUTH TWICE DAILY prn 08/06 completed Not Available Not Available Not Available cyclospor ine 100 mg capsule QOD 2007 active RECORDED 03/25/19 08 9:10PM BY JORGE Rai NP, ANNOTATI ON/CHARLEE DUM; Not Available Not Available Not Available amoxicill in 875 mg-potass ium clavulana te 125 mg tablet TWO TIMES DAILY 05/28 completed RECORDED 06/23/19 13 10:15AM BY JASON IRIZARRY MD, MEDICATI ON AUTO-BRENDON CTIVATIO N; Not Available Not Available Not Available tobramyci n 0.3 %-dexamet hasone 0.1 % eye drops,willi pension SHAKE LIQUID AND INSTILL 1 DROP IN LEFT EYE FOUR TIMES DAILY FOR 1 WEEK 08/06 completed Not Available Not Available Not Available oxycodone 5 mg tablet TAKE 1 TABLET BY MOUTH UP TO THREE TIMES DAILY NEEDED FOR PAIN 10/09 completed Not Available Not Available Not Available methylphe nidate ER 27 mg tablet,ex tended release 24 hr 05/08 completed Not Available Not Available Not Available Vitamin D 50,000 unit capsule ONCE A WEEK 08/12 completed RECORDED 08/13/19 11 2:59PM BY MIGDALIA DREW ON/ADDEN DUM;THIS ORDER DISCONTI NUED PER [facility] N. Not Available Not Available Not Available albuterol (refill) 90 mcg/actua tion aerosol inhaler EVERY FOUR HOURS, NEEDED 09/15 completed RECORDED 09/29/19 09 10:31AM BY JORGE Rai NP, MEDICATI ON AUTO-RBENDON CTIVATIO N; Not Available Not Available Not Available bupropion HCl SR 200 mg tablet,12 hr sustained -release 2 PO QD active Not Available Not Available Not Available Vitamin D3 25 mcg (1,000 unit) capsule Take 1 capsule every day by oral route. 10/11 completed Not Available Not Available Not Available Humira 40 mg/0.8 mL subcutane ous syringe kit QWEEK 08/12 completed RECORDED 08/13/19 11 2:59PM BY MIGDALIA DREW ON/ADDEN DUM; Not Available Not Available Not Available cyclobenz aprine 5 mg tablet Take 1 tablet every day by oral route as needed for 30 days. active Not Available Not Available No t Available Restasis 0.05 % eye drops in a dropperet te 1 DROP EACH EYE DAILY active Not Available Not Available No t Available metformin ER 750 mg tablet,ex tended release 24 hr TAKE 1 TABLET BY MOUTH TWICE DAILY active Not Available Not Available No t Available mirtazapi ne 7.5 mg tablet TAKE 1 TABLET BY MOUTH EVERY DAY AT BEDTIME 07/30 completed Not Available Not Available Not Available duloxetin e 20 mg capsule,d elayed release DAILY 01/20 completed RECORDED 01/21/20 11 1:31PM BY TAWANDA BHATIA MA, OFFICE VISIT;DR Ra CASANOVA Not Available Not Available Not Available duloxetin e 30 mg capsule,d elayed release Take 1 capsule every day by oral route for 90 days. 02/25 completed Not Available Not Available Not Available duloxetin e 60 mg capsule,d elayed release Take 1 capsule every day by oral route for 30 days. active Not Available Not Available No t Available Boostrix Tdap 2.5 Lf unit-8 mcg-5 Lf/0.5 mL intramusc ular syringe active Not Available Not Available Not Available doxycycli ne hyclate 100 mg tablet,de layed release TWO TIMES DAILY 08/12 completed RECORDED 08/13/19 11 2:59PM BY MIGDALIA DREW ON/ADDEN DUM; Not Available Not Available Not Available acetamino phen 975 mg , 3 tablets by mouth every 8 hours 05/09 completed Not Available Not Available Not Available vitamin E 1 tablet po daily active Not Available Not Available No t Available omeprazol e TWO TIMES DAILY 08/12 completed RECORDED 08/13/19 11 2:59PM BY MIGDALIA DREW ON/ADDEN DUM; Not Available Not Available Not Available Fish Oil QD 09/30 completed RECORDED 10/01/19 08 8:33AM BY MARLYS MILAN MA, OFFICE VISIT; Not Available Not Available Not Available Iron (ferrous sulfate) 03/14 completed 2 tablets daily Not Available Not Available Not Available peak flow meter USE DAILY. DIAGNOSI S: ASTHMA (493.90) 08/12 completed RECORDED 08/13/19 11 3:00PM BY MIGDALIA DREW ON/ADDEN DUM; Not Available Not Available Not Available ondansetr on 4mg by mouth 3 times a day 10/11 completed Not Available Not Available Not Available Culturell e qd 08/06 completed Not Available Not Available Not Available FreeStyle Lancets TWO TIMES DAILY 2013 active RECORDED 05/13/19 14 4:55PM BY JASON IRIZARRY MD, OFFICE VISIT; Not Available Not Available Not Available Promethaz ine W/Codeine EVERY 6 HOURS NEEDED FOR COUGH 06/17 completed RECORDED 06/23/19 13 10:15AM BY JASON IRIZARRY MD, MEDICATI ON AUTO-BRENDON CTIVATIO N; Not Available Not Available Not Available OneTouch UltraMini kit 03/05 completed Not Available Not Available Not Available quetiapin e 50 mg tablet AT BEDTIME active Not Available Not Available No t Available Humira Pen EVERY OTHER WEEK active RECORDED 05/12/19 14 2:21PM BY ANAMARIA RIVERA MA, OFFICE VISIT;DR Ra JOYNER Not Available Not Available Not Available cholecalc iferol (vitamin D3) 25 mcg (1,000 unit) tablet Take 1 tablet every day by oral route as directed . 10/11 completed Not Available Not Available Not Available Enbrel SureClick 50 mg/mL (1 mL) subcutane ous pen injector 1 INJECTIO N WEEKLY active Not Available Not Available No t Available FreeStyle Lite Meter USE DAILY 06/11 completed RECORDED 06/17/19 14 1:35PM BY JASON IRIZARRY MD, MEDICATI ON AUTO-BRENDON CTIVATIO N; Not Available Not Available Not Available FreeStyle Lite Strips TWO TIMES DAILY 2013 active RECORDED 05/13/19 14 4:55PM BY JASON IRIZARRY MD, OFFICE VISIT; Not Available Not Available Not Available ferrous sulfate 27 mg iron tablet Take 2 tablets every day by oral route. 05/05 completed Not Available Not Available Not Available PreviDent 5000 Dry Mouth 1.1 % dental paste Take 1 applicat ion 3 times a day by dental route as directed for 24 days. 07/08 completed Not Available Not Available Not Available diclofena c 1 % topical gel MAGUE 2 GRAMS EXT AA Q 4 TO 6 H 01/15 completed Not Available Not Available Not Available Estroven [employer] (w-vitami ns) QD active RECORDED 11/30/19 07 1:50PM BY JORGE Rai, ISID[place], ANNOTATI ON/ADDEN DUM; Not Available Not Available Not Available Prevnar 13 (PF) 0.5 mL intramusc ular syringe active Not Available Not Available Not Available Vitamin D3 125 mcg (5,000 unit) tablet Take 1 tablet every day by oral route. active Not Available Not Available No t Available sodium,po tassium,m ag sulfates 17.5 gram-3.13 gram-1.6 gram oral soln 08/06 completed Not Available Not Available Not Available Vitamin D3 50 mcg (2,000 unit) capsule Take 1 capsule every day by oral route. 10/01 completed Not Available Not Available Not Available Centrum Silver 0.4 mg-300 mcg-250 mcg tablet Take 1 tablet every day by oral route. active Not Available Not Available No t Available Multi Vitamin active Not Available Not Available Not Available cyanocoba babatunde (vit B-12) 2,000 mcg tablet Take 1 tablet every day by oral route. 01/15 completed Not Available Not Available Not Available Fluvirin 3111-3421 45 mcg (15 mcg x 3)/0.5 mL intramusc ular suspensio n active Not Available Not Available Not Available Align Jr 10.5 mg (10 million cell) chewable tablet Take 1 tablet every day by oral route. active Not Available Not Available No t Available Fiber (psyllium husk) 0.4 gram capsule Take 2 capsules every day by oral route. active Not Available Not Available No t Available Bydureon BCise 2 mg/0.85 mL subcutane ous auto-inje ctor Inject 2 mg every week by subcutan eous route for 28 days. active Not Available Not Available No t Available Women's Multivita min 18 mg iron-400 mcg-500 mg tablet Take 1 tablet every day by oral route. 10/11 completed Not Available Not Available Not Available OneTouch Ultra Blue Test Strip TEST BID 08/06 completed Not Available Not Available Not Available Humira(CF ) 40 mg/0.4 mL subcutane ous syringe kit 08/06 completed Not Available Not Available Not Available Humira(CF ) Pen 40 mg/0.4 mL subcutane ous kit inject once a week 07/08 completed Not Available Not Available Not Available Afluria Qd 2019- (36 mos up)(PF)60 mcg (15 mcg x4)/0.5 mL IM syringe ADM 0.5ML IM UTD 01/15 completed Not Available Not Available Not Available Paxlovid 300 mg (150 mg x 2)-100 mg tablets in a dose pack Take 3 tablets twice a day by oral route as directed for 5 days. 02/25 completed Not Available Not Available Not Available COVID-19 At-Home Test kit Take 1 kit every day by miscell. route as needed for 10 days. 08/06 completed Not Available Not Available Not Available Mounjaro 2.5 mg/0.5 mL subcutane ous pen injector Inject 2.5 mg every week by subcutan eous route for 28 days. 11/22 completed Not Available Not Available Not Available Miebo (PF) 100 % eye drops INSTILL ONE DROP INTO EACH EYE FOUR TIMES DAILY 08/16 completed One drop daily Not Available Not Available Not Available Vitals Date Recorded Body height Body mass index (BMI) Body weight Heart rate Oxygen saturation Oxygen saturation in Arterial blood by Pulse oximetry Body temperature Systolic blood pressure Diastolic blood pressure Provider Name and Address Organization Details Last Updated DateTime 4 161.29 cm 41.1 kg/m2 355230. 8 g 105 /min 99 % 99 % 97.3 [degF] 145 mm[Hg] 91 mm[Hg] Kylah Dean MA [facility] 4 10:18:43 Date Recorded Systolic blood pressure Diastolic blood pressure Provider Name and Address Organization Details Last Updated DateTime 11/23/2023 126 mm[Hg] 76 mm[Hg] Ky Lara PA-C [address] [facility] [address], [place], [address] 11/23/2023 11:18:46 Social History Question Answer Notes LastModified by Organizat ion Details LastModified Time Tobacco Smoking Status Former Smoker Audie Olivares MA [facility], [facility] 10/31/2013 09:58:43 Do You Have An Advance Directive? Yes [facility] Information not available 01/16/2020 What Is Your Level Of Alcohol Consumption? None Notes 26 Years Sobriety [facility] Information not available 11/03/2016 Is Blood Transfusion Acceptable In An Emergency? Yes Information not available 02/27/2015 What Is Your Level Of Caffeine Consumption? Occasional 0-1 Serving Of Coffee Daily, No Tea/soda Information not available 08/25/2014 How Much Tobacco Do You Chew? None Information not available 02/27/2015 Are You Currently Employed? No Disabled Due To Back Surgeries Information not available 08/25/2014 What Type Of Diet Are You Following? REGULAR Lots Of Water; Gastric Bypass 2013 Information not available 05/08/2014 Which Illicit Or Recreational Drugs Have You Used? None Information not available 02/27/2015 Do You Or Have You Ever Used E-cigarettes Or Vape? Never Used Electronic Cigarettes Information not available 11/17/2018 What Is Your Occupation? Former [employer] Information not available 08/25/2014 When Did You Quit Smoking? 16+yearssince magdaleno jrolonGavin Information not available 01/16/2021 Live Alone Or With Others? Alone And 1 Cats Information not available 04/13/2023 Do You Take Precautions To Prevent Distracted Driving? Yes Information not available 02/27/2015 How Often Do You Need To Have Someone Help You When You Read Instructions, Pamphlets, Or Other Written Material From Your Doctor Or Pharmacy? Never Information not available 02/27/2015 Have You Served In The ? No Information not available 01/29/2016 Have You Or Anyone In Your Household Had Any Of The Following Symptoms In The Last 14 Days: Sore Throat, Cough, Chills, Body Aches For Unknown Reasons, Shortness Of Breath For Unknown Reasons, Loss Of Smell, Loss Of Taste, Fever At Or Greater Than 100 Degrees Fahrenheit? No Information not available 01/16/2020 Are You Or Anyone In Your Household A Health Care Provider Or Emergency Responder? No Information not available 01/16/2020 To The Best Of Your Knowledge Have You Been In Close Proximity To Any Individual Who Tested Positive For COVID-19? No Information not available 01/16/2020 *AWV ONLY* Are You Presently Prescribed Opioid Medication By PCP Or Specialist? If YES -Provider Assess The Benefit For Other, Non-opioid Pain Therapies Instead, Even If The Patient Does Not Have OUD But Is Possibly At Risk. Yes Information not available 01/16/2020 What Was The Date Of Your Most Recent Tobacco Screening? 04/13/2023 Information not available 04/13/2023 How Many Children Do You Have? 0 Information not available 05/08/2014 Seat Belts Used Routinely Yes Information not available 02/27/2015 Are You Sexually Active? No Information not available 02/27/2015 Smoke Alarm In Home Yes Information not available 02/27/2015 At What Age Did You Start Smoking Tobacco? 11 Quit In 2003 At Age 42 Information not available 08/25/2014 Are You Passively Exposed To Smoke? No Information not available 02/27/2015 Do You Or Have You Ever Used Smokeless Tobacco? Never Used Smokeless Tobacco Information not available 11/17/2018 How Much Tobacco Do You Smoke? 1 PPD Information not available 08/25/2014 Do You Use Any Illicit Or Recreational Drugs? No Information not available 01/16/2021 Do You Use Sunscreen Routinely? Yes [email or web address] Information not available 11/17/2018 How Many Years Have You Smoked Tobacco? 31 Information not available 02/27/2015 Do You Or Have You Ever Used Any Other Forms Of Tobacco Or Nicotine? No Information not available 01/16/2021 Sex: Unknown Functional Status Question Answer Note LastModified by Organizat ion Details LastModified Time Are you able to walk? YESWOREST Information not available 01/16/2021 Are you able to care for yourself? Yes in 2012 (Eyad) Information not available 07/30/2016 What is your exercise level? Occasional Limited because of back surgery (Rebel) and shoulder problems [email or web address] Information not available 01/16/2020 Mental Status None recorded. Family History Relationship Description Onset Age of this Age Resolved Age Notes LastModified by Organization Details LastModified Time Father Hypercholest erolemia [email or web address] Not available 10:58:33 Father Diabetes mellitus [email or web address] Not available 10:57:21 Mother Hypertensive disorder [email or web address] Not available 10:57:52 Mother Primary malignant neoplasm of lung 87 bsolivanmatto s Not available 07/30/2016 12:56:18 Paternal Uncle Malignant tumor of colon [email or web address] Not available 10:58:18 Sister Heart disease 37 phelmuth Not available 2015 10:33:13 Medical History Condition Response Diabetes Y Skin Problems Y Obesity Y High Cholesterol Y Hypertension Y Depression Y Asthma Y Gynecological History Statement/Question Response Date of Last Pap Smear Current Control Method Hysterectom y Date of Last Colonoscopy 05/05/2012 Most Recent Mammogram 07/30/2016 Obstetrics History GPAL:G 0 P 0 0 0 0 Immunizations Vaccine Type Date Status Provider Name and Address Organization Details Recorded Time Influenza, split virus, trivalent, PF 11/21/2014 completed Not Available [facility] 2023 19:50:27 Pneumococcal conjugate PCV 13 11/21/2014 completed Not Available [facility] 03/06/2023 19:50:27 Tdap 12/26/2014 completed Not Available [facility] 19:50:27 Influenza, split virus, trivalent, preservative 10/18/2015 completed Not Available [facility] 03/06/2023 19:50:27 COVID-19, mRNA, LNP-S, PF, 30 mcg/0.3 mL dose 06/07/2020 completed Not Available [facility] 03/06/2023 19:50:27 COVID-19, mRNA, LNP-S, PF, 30 mcg/0.3 mL dose 06/28/2020 completed Not Available [facility] 03/06/2023 19:50:27 COVID-19, mRNA, LNP-S, PF, 30 mcg/0.3 mL dose 12/28/2020 completed Not Available [facility] 03/06/2023 19:50:27 Influenza, split virus, quadrivalent, PF 10/06/2019 completed Not Available [facility] 03/06/2023 19:50:27 Influenza, split virus, trivalent, preservative 11/20/2020 completed Not Available [facility] 03/06/2023 19:50:27 zoster recombinant 05/31/[address] [facility] 03/06/2023 19:50:27 COVID-19, mRNA, LNP-S, PF, 30 mcg/0.3 mL dose, ciarra-sucrose 06/17/2021 completed Not Available [facility] 03/06/2023 19:50:27 zoster recombinant 01/15/[address] [facility] 03/06/2023 19:50:27 Influenza, split virus, quadrivalent, PF 11/17/2018 completed Not Available [facility] 03/06/2023 19:50:27 Influenza, split virus, quadrivalent, PF 10/01/2016 completed Not Available [facility] 03/06/2023 19:50:27 Influenza, split virus, quadrivalent, PF 11/06/2017 completed Not Available [facility] 03/06/2023 19:50:27 Influenza, MDCK, quadrivalent, PF 12/06/2021 completed Not Available [facility] 03/06/2023 19:50:27 Influenza, split virus, trivalent, PF 10/31/2013 completed Not Available [facility] 2019 02:21:58 pneumococcal polysaccharide PPV23 07/18/1995 completed Not Available [facility] 2023 19:50:27 pneumococcal polysaccharide PPV23 12/25/1998 completed Not Available [facility] 2023 19:50:27 Influenza, split virus, trivalent, preservative 12/10/2005 completed Not Available [facility] 03/06/2023 19:50:27 Td (adult), 2 Lf tetanus toxoid, preservative free, adsorbed 03/03/2006 completed Not Available [facility] 03/06/2023 19:50:27 Influenza, split virus, trivalent, preservative 11/27/2006 completed Not Available [facility] 03/06/2023 19:50:27 Influenza, split virus, trivalent, preservative 10/18/2007 completed Not Available [facility] 03/06/2023 19:50:27 Influenza, split virus, trivalent, preservative 10/30/2008 completed Not Available [facility] 03/06/2023 19:50:27 Influenza, split virus, trivalent, preservative 11/12/2009 completed Not Available [facility] 03/06/2023 19:50:27 Influenza, split virus, trivalent, preservative 10/14/2011 completed Not Available [facility] 03/06/2023 19:50:27 Tdap 03/17/2012 completed Not Available [facility] 19:50:27 influenza, seasonal, intradermal, preservative free 10/22/2012 completed Not Available [facility] 19:50:27 Influenza, split virus, quadrivalent, PF 12/08/2022 completed Meme miranda [facility] 12/08/2022 14:44:09 Past Encounters Encounter ID Performer Location Encounter Start Date Encounter Closed Date Diagnosis/Indication Diagnosis SNOMED-CT Code Diagnosis ICD10 Code [id number] Ky Lara PA-C [facility] [address] [facility] [address] [place] [address] 11/10/2023 14:23:35 11/11/2023 10:02:02 Obstructive sleep apnea syndrome 21759490 G47.33 Mild neuro cognitive disorder 181099413 G31.84 Diabetic p eripheral neuropathy 254947813 E11.40 Spinal emile nosis of lumbar region 14299711 M48.061 Psoriatic arthritis 1563 75599 L40.50 Mild major depression, single episode 60262469 F32.0 [id number] Ky Lara PA-C Main Office [address] [facility] [address] [place] [address] 11/23/2023 10:10:41 11/23/2023 11:28:04 Diabetic peripheral neuropathy 026932487 E11.40 Asthma 687674660 J45.90 9 Gastroesop hageal reflux disease 396718168 K21.9 Mild neuro cognitive disorder 003356049 G31.84 Spinal emile nosis of lumbar region 44819394 M48.061 Hyperlipidemia 62458374 E78.5 Health Concerns Section Related Observation LastModified by Organization Detai ls LastModified Time None Recorded Concern Status LastModified by Organization Details LastModified Time None Recorded Payers Encounter Date Sequence Insurance Name Policy Number Policy Wilson Covered Member ID Wilson Member ID Guarantor Name 11/23/2023 2 [place] [id number] Fara Crandall Parent [id number] Fara Crandall Parent 11/23/2023 1 [place] [employer] Fara Crandall Parent [id number] Fara Crandall Parent Notes Date Note Type Note Provider Name and Address Organization Details Recorded Time 11/23/2023 text/html Diabetes F/URepo rted bypatient.Context:seei ng eye doctor regularly; checking feet regularly Associated Symptoms:no weight gain; no weight loss; no confusion; no increased appetite; no increased urination; no blurred vision; no numbness of feetHypertension F/UReported bypatient.Associated Symptoms:no dizziness; no lightheadedness; no chest pain; no shortness of breath; no palpitations; no edema; no calf pain with exertion Lifestyle:regular exercise; limiting/avoiding salt Medications:taking medications as directed; no side effects from medication Ky Lara PA-C [address], [address], [facility] 11/23/2023 21:25:14 OBGyn Episode No OBEpisode recorded.
--- OUTSIDE RECORDS SUMMARY | 2024-01-27 01:42 | XMS_ITS | Data Portability ---
Author Organization [facility], Main Office Address [address] [facility] [address] [place] [id number] Care Team Providers Care Refrigerated National Truck Driver Name Role Phone JOEL DAO Cnc Machine Operator [phone] VALENTÍN MONTERO Psychiatrist KESHIA COOPER Product Test Engineer CORA LARA Primary Care Provider CORWIN DAVISON Cnc Machine Operator RANDI CAMARENA Neurophysiologist JASON ONEAL Pain Management DANIEL BENJAMIN Geriatric Medicine [phone] SHADI CARVALHO Neuropsychologist Assessment Encounter Date Assessment Date Assessment LastModified by Organization Details LastModified Time 11/10/2023 11/10/2023 This service was provided using telemedicine. Patient consented to telephone visit Patient was located in the [facility]. Provider was located in the office. No other persons participated in the telemedicine visit except for the patient unless otherwise indicated here. {{}} Total time of visit was 47 minutes. pmadden Not available 11/10/2023 20:49:06 Plan of Treatment Reminders Order Date Submit Date Provider Last Modified By Organization Details Last Modified Time Details Appointments Follow Up DM 30 2024 10:30A M Cora MURRY-C Not available Not available Not available AWV30 2024 10:30A M Cora MURRY-C Not available Not available Not available Lab HbA1c (hemoglob in A1c), blood 2023 024 ANDREW [facility], [address] [facility] [address], [place], [address], 07/09/2023 12:16:00 unlisted lab - CMP14+LP+ Hb A1C+alb RU 2023 024 [facility], [address], [place], [address], 08/15/2023 16:07:03 microalbu min/creat inine, mass ratio, urine 2023 024 [facility], [address], [place], [address], 08/15/2023 16:07:04 HbA1c (hemoglob in A1c), blood 2023 024 [facility], [address], [place], [address], 11/14/2023 03:06:27 BMP, serum or plasma 2023 024 [facility], [address], [place], [address], 11/14/2023 03:06:28 HbA1c (hemoglob in A1c), blood 2023 024 [facility], [address], [place], [address], 11/14/2023 03:06:29 lipid panel, serum 2023 024 [facility], [address], [place], [address], 11/23/2023 11:22:03 CK (creatine kinase), total, serum 2023 024 [facility], [address], [place], [address], 11/23/2023 11:22:03 Referral physical medicine and rehabilit ation referral 2023 024 tony Oneal MD, [address], [place], [address], 07/17/2023 09:38:39 psycholog ist referral 2023 yumi Parson PHD ([facility]), [address] [place], [address], 11/11/2023 10:02:02 Procedures None recorded. Surgeries None recorded. Imaging None recorded. Medication Orders cyclobenz aprine 5 mg tablet 2023 [facility] [employer] [facility] #53950, [address], [place], [id number], 11/10/2023 15:33:37 Aricept 5 mg tablet 2023 [facility] [employer] [facility] #80181, [address], [place], [id number], 11/10/2023 16:02:35 Mounjaro 2.5 mg/0.5 mL subcutane ous pen injector 2023 [facility] [employer] [facility] #46272, [address], [place], [id number], 11/23/2023 10:21:26 albuterol sulfate HFA 90 mcg/actua tion aerosol inhaler 2023 024 [facility] [place] [address] [address][id number], [address], [place], [id number], 11/26/2023 01:14:53 cyclobenz aprine 5 mg tablet 2023 024 [facility] [employer] [facility] #43225, [address], [place], [id number], 11/23/2023 11:22:01 pantopraz ole 40 mg tablet,de layed release 2023 024 [facility] #35070, [address], [place], [place], [id number], 11/23/2023 11:22:01 Patient Targets Encounter Date Encounter Id Patient Goals Patient Target Last Modified By Organization Details Last Modified Time 08/17/2023 [id number] Ongoing of Microalbumin/Cre atinine Ratio yearly Not [...] reflect progress toward goal. pmadden Not available 08/17/2023 14:55:50 11/23/2023 [id number] Ongoing of Microalbumin/Cre atinine Ratio yearly Not [...] Modified By Organization Details Last Modified Time 05/11/2023 [id number] encouraged pt to check outstanding labs as directed pmadden Not available 05/11/2023 11:57:53 Medications (OTC , herbal therapies, supplements) reviewed and reconciled with patient and or caregiver, including potential side effects, drug interactions, instructions, and the consequences of not taking medication. Reviewed potential barriers to medication adherence, such as side effects from medication or cost of medication. pmadden Not available 05/11/2023 11:54:11 07/09/2023 [id number] Medications (OTC , herbal therapies, supplements) reviewed and reconciled with patient and or caregiver, including potential side effects, drug interactions, instructions, and the consequences of not taking medication. Reviewed potential barriers to medication adherence, such as side effects from medication or cost of medication. pmadden Not available 07/09/2023 12:32:41 08/17/2023 [id number] type 2 diabetes: care instructions pmadden Not available 08/17/2023 15:05:37 Medications (OTC , herbal therapies, supplements) reviewed and reconciled with patient and or caregiver, including potential side effects, drug interactions, instructions, and the consequences of not taking medication. Reviewed potential barriers to medication adherence, such as side effects from medication or cost of medication. pmadden Not available 08/17/2023 14:44:24 11/10/2023 [id number] Medications (OTC , herbal therapies, supplements) reviewed and reconciled with patient and or caregiver, including potential side effects, drug interactions, instructions, and the consequences of not taking medication. Reviewed potential barriers to medication adherence, such as side effects from medication or cost of medication. pmadden Not available 11/10/2023 16:08:31 11/23/2023 [id number] Medications (OTC , herbal therapies, supplements) reviewed and reconciled with patient and or caregiver, including potential side effects, drug interactions, instructions, and the consequences of not taking medication. Reviewed potential barriers to medication adherence, such as side effects from medication or cost of medication. pmadden Not available 11/23/2023 11:21:58 Reason for Referral Physical Medicine And Rehabi litation Referral for Spinal stenosis of lumbar region Referring Physician: Cora Lara, Internal Medicine, Encounter Date: 07/09/2023 Psychologist Referral for Mi ld major depression, single episode Referring Physician: Cora Lara, Internal Medicine, Encounter Date: 11/10/2023 Results Created Date Observation Date Name Description Value Unit Range Abnormal Flag Note LastModifiedBy Organization Detail LastModifiedTime 04/13/19 24 04/13/2023 COMPL ETE CBC WITH DIFF WBC 11.1 K/mm3 (4.0-1 1.0) high Not Available [facility] [address] [place], [address], 04/13/2023 15:08:54 04/13/19 24 04/13/2023 COMPL ETE CBC WITH DIFF RBC 4.24 M/mm3 (4.20- 5.40) Not Available [facility] [address] [place], [address], 04/13/2023 15:08:54 04/13/19 24 04/13/2023 COMPL ETE CBC WITH DIFF HGB 12.9 gm/dL (11.7- 15.5) Not Available [facility] [address] [place], [address], 04/13/2023 15:08:54 04/13/19 24 04/13/2023 COMPL ETE CBC WITH DIFF HCT 39.0 % (35.7- 45.8) Not Available [facility] [address] [place], [address], 04/13/2023 15:08:54 04/13/19 24 04/13/2023 COMPL ETE CBC WITH DIFF MCV 92.0 fL (80.0- 100.0) Not Available [facility] [address] [place], [address], 04/13/2023 15:08:54 04/13/19 24 04/13/2023 COMPL ETE CBC WITH DIFF MCH 30.4 pg (27.0- 34.0) Not Available [facility] [address] [place], [address], 04/13/2023 15:08:54 04/13/19 24 04/13/2023 COMPL ETE CBC WITH DIFF MCHC 33.1 g/dL (33.0- 37.0) Not Available [facility] [address] [place], [address], 04/13/2023 15:08:54 04/13/19 24 04/13/2023 COMPL ETE CBC WITH DIFF plt 334 K/mm3 (150-4 60) Not Available [facility] [address] [place], [address], 04/13/2023 15:08:54 04/13/19 24 04/13/2023 COMPL ETE CBC WITH DIFF RDW-SD 42.3 fL (<47.0 ) Not Available [facility] [address] [place], [address], 04/13/2023 15:08:54 04/13/19 24 04/13/2023 COMPL ETE CBC WITH DIFF MPV 10.2 fL (9.4-1 2.4) Not Available [facility] [address] [place], [address], 04/13/2023 15:08:54 04/13/19 24 04/13/2023 COMPL ETE CBC WITH DIFF automated NRBC 0.0 #/100 _WBC' s Not Available [facility] [address] [place], [address], 04/13/2023 15:08:54 04/13/19 24 04/13/2023 COMPL ETE CBC WITH DIFF abs. NRBC 0.0 K/mm3 Not Available [facility] [address] [place], [address], 04/13/2023 15:08:54 04/13/19 24 04/13/2023 COMPL ETE CBC WITH DIFF neut # 5.3 K/mm3 (1.3-7 .0) Not Available [facility] [address] [place], [address], 04/13/2023 15:08:54 04/13/19 24 04/13/2023 COMPL ETE CBC WITH DIFF lymph # 4.0 K/mm3 (0.8-3 .1) high Not Available [facility] [address] [place], [address], 04/13/2023 15:08:54 04/13/19 24 04/13/2023 COMPL ETE CBC WITH DIFF mono# 1.3 K/mm3 (0.4-0 .9) high Not Available [facility] [address] [place], [address], 04/13/2023 15:08:54 04/13/19 24 04/13/2023 COMPL ETE CBC WITH DIFF eo # 0.3 K/mm3 (0.0-0 .4) Not Available [facility] [address] [place], [address], 04/13/2023 15:08:54 04/13/19 24 04/13/2023 COMPL ETE CBC WITH DIFF baso # 0.1 K/mm3 (0.0-0 .1) Not Available [facility] [address] [place], [address], 04/13/2023 15:08:54 04/13/19 24 04/13/2023 COMPL ETE CBC WITH DIFF abs. imm gran 0.0 K/mm3 Not Available [facility] [address] [place], [address], 04/13/2023 15:08:54 04/13/19 24 04/13/2023 COMPL ETE CBC WITH DIFF neut 47.7 % (44-76 ) Not Available [facility] [address] [place], [address], 04/13/2023 15:08:54 04/13/19 24 04/13/2023 COMPL ETE CBC WITH DIFF lymph 36.3 % (15-43 ) Not Available [facility] [address] [place], [address], 04/13/2023 15:08:54 04/13/19 24 04/13/2023 COMPL ETE CBC WITH DIFF monocyte 12.1 % (4.5-1 0.5) high Not Available [facility] [address] [place], [address], 04/13/2023 15:08:54 04/13/19 24 04/13/2023 COMPL ETE CBC WITH DIFF eo 3.0 % (0-6) Not Available [facility] [address] [place], [address], 04/13/2023 15:08:54 04/13/19 24 04/13/2023 COMPL ETE CBC WITH DIFF baso 0.5 % (0-2) Not Available [facility] [address] [place], [address], 04/13/2023 15:08:54 04/13/19 24 04/13/2023 COMPL ETE CBC WITH DIFF imm gran 0.4 % Not Available [facility] [address] [place], [address], 04/13/2023 15:08:54 04/13/19 24 04/13/2023 SEDIM ENTAT ION RATE, AUTOM ATED sedimentatio n rate,automat ed 38 mm/HR (0-20) high Not Available [facility] [address] [place], [address], 04/13/2023 15:15:47 04/13/19 24 04/13/2023 UA W/REF ARSH CULTU RE appear/color YELLO W CLEAR Not Available [facility] [address] [place], [address], 04/13/2023 15:32:43 04/13/19 24 04/13/2023 UA W/REF ARSH CULTU RE sp. gravity 1.020 (1.002 -1.030 ) Not Available [facility] [address] [place], [address], 04/13/2023 15:32:43 04/13/19 24 04/13/2023 UA W/REF ARSH CULTU RE urine pH 6.0 (5.0-8 .0) Not Available [facility] [address] [place], [address], 04/13/2023 15:32:43 04/13/19 24 04/13/2023 UA W/REF ARSH CULTU RE urine albumin TRACE (neg) abnormal Not Available [facility] [address] [place], [address], 04/13/2023 15:32:43 04/13/19 24 04/13/2023 UA W/REF ARSH CULTU RE urine glucose NEGATI VE (neg) Not Available [facility] [address] [place], [address], 04/13/2023 15:32:43 04/13/19 24 04/13/2023 UA W/REF ARSH CULTU RE urine ketones NEGATI VE (neg) Not Available [facility] [address] [place], [address], 04/13/2023 15:32:43 04/13/19 24 04/13/2023 UA W/REF ARSH CULTU RE urine bilirubin NEGATI VE (neg) Not Available [facility] [address] [place], [address], 04/13/2023 15:32:43 04/13/19 24 04/13/2023 UA W/REF ARSH CULTU RE urine hemoglobin NEGATI VE (neg) Not Available [facility] [address] [place], [address], 04/13/2023 15:32:43 04/13/19 24 04/13/2023 UA W/REF ARSH CULTU RE urine nitrite NEGATI VE (neg) Not Available [facility] [address] [place], [address], 04/13/2023 15:32:43 04/13/19 24 04/13/2023 UA W/REF ARSH CULTU RE urine leukocyte NEGATI VE (neg) Not Available [facility] [address] [place], [address], 04/13/2023 15:32:43 04/13/19 24 04/13/2023 UA W/REF ARSH CULTU RE urobilinogen NORMAL mg/dL (norm) Not Available [facility] [address] [place], [address], 04/13/2023 15:32:43 04/13/19 24 04/13/2023 UA W/REF ARSH CULTU RE urine WBCs 2 /hpf (0-5) Not Available [facility] [address] [place], [address], 04/13/2023 15:32:43 04/13/19 24 04/13/2023 UA W/REF ARSH CULTU RE urine RBCs 2 /hpf (0-3) Not Available [facility] [address] [place], [address], 04/13/2023 15:32:43 04/13/19 24 04/13/2023 UA W/REF ARSH CULTU RE bacteria SLIGHT hpf (neg) abnormal Not Available [facility] [address] [place], [address], 04/13/2023 15:32:43 04/13/19 24 04/13/2023 UA W/REF ARSH CULTU RE mucus SLIGHT /lpf Not Available [facility] [address] [place], [address], 04/13/2023 15:32:43 04/13/19 24 04/13/2023 UA W/REF ARSH CULTU RE squamous epith 3 /hpf (0-8) Not Available [facility] [address] [place], [address], 04/13/2023 15:32:43 04/13/19 24 04/13/2023 UA W/REF ARSH CULTU RE hyaline cast 1 lpf (0-2) Not Available [facility] [address] [place], [address], 04/13/2023 15:32:43 04/13/19 24 04/13/2023 UA W/REF ARSH CULTU RE amorphous crystals SLIGHT /hpf Not Available [facility] [address] [place], [address], 04/13/2023 15:32:43 04/13/19 24 04/13/2023 UA W/REF ARSH CULTU RE clarity CLEAR (clear ) Not Available [facility] [address] [place], [address], 04/13/2023 15:32:43 04/13/19 24 04/13/2023 UA W/REF ARSH CULTU RE culture indication CULTUR E NOT INDICA CAS Not Available [facility] [address] [place], [address], 04/13/2023 15:32:43 04/13/19 24 04/13/2023 UA W/REF ARSH CULTU RE appear/color YELLO W CLEAR Not Available [facility] [address] [place], [address], 04/13/2023 15:39:23 04/13/19 24 04/13/2023 UA W/REF ARSH CULTU RE sp. gravity 1.020 (1.002 -1.030 ) Not Available [facility] [address] [place], [address], 04/13/2023 15:39:23 04/13/19 24 04/13/2023 UA W/REF ARSH CULTU RE urine pH 6.0 (5.0-8 .0) Not Available [facility] [address] [place], [address], 04/13/2023 15:39:23 04/13/19 24 04/13/2023 UA W/REF ARSH CULTU RE urine albumin (neg) abnormal TRACE Inter pret Prote in Resul ts with Cauti on. Under fille d tube. Not Available [facility] [address] [place], [address], 04/13/2023 15:39:23 04/13/19 24 04/13/2023 UA W/REF ARSH CULTU RE urine glucose NEGATI VE (neg) Not Available [facility] [address] [place], [address], 04/13/2023 15:39:23 04/13/19 24 04/13/2023 UA W/REF ARSH CULTU RE urine ketones NEGATI VE (neg) Not Available [facility] [address] [place], [address], 04/13/2023 15:39:23 04/13/19 24 04/13/2023 UA W/REF ARSH CULTU RE urine bilirubin NEGATI VE (neg) Not Available [facility] [address] [place], [address], 04/13/2023 15:39:23 04/13/19 24 04/13/2023 UA W/REF ARSH CULTU RE urine hemoglobin NEGATI VE (neg) Not Available [facility] [address] [place], [address], 04/13/2023 15:39:23 04/13/19 24 04/13/2023 UA W/REF ARSH CULTU RE urine nitrite NEGATI VE (neg) Not Available [facility] [address] [place], [address], 04/13/2023 15:39:23 04/13/19 24 04/13/2023 UA W/REF ARSH CULTU RE urine leukocyte NEGATI VE (neg) Not Available [facility] [address] [place], [address], 04/13/2023 15:39:23 04/13/19 24 04/13/2023 UA W/REF ARSH CULTU RE urobilinogen NORMAL mg/dL (norm) Not Available [facility] [address] [place], [address], 04/13/2023 15:39:23 04/13/19 24 04/13/2023 UA W/REF ARSH CULTU RE urine WBCs 2 /hpf (0-5) Not Available [facility] [address] [place], [address], 04/13/2023 15:39:23 04/13/19 24 04/13/2023 UA W/REF ARSH CULTU RE urine RBCs 2 /hpf (0-3) Not Available [facility] [address] [place], [address], 04/13/2023 15:39:23 04/13/19 24 04/13/2023 UA W/REF ARHS CULTU RE bacteria SLIGHT hpf (neg) abnormal Not Available [facility] [address] [place], [address], 04/13/2023 15:39:23 04/13/19 24 04/13/2023 UA W/REF ARSH CULTU RE mucus SLIGHT /lpf Not Available [facility] [address] [place], [address], 04/13/2023 15:39:23 04/13/19 24 04/13/2023 UA W/REF ARSH CULTU RE squamous epith 3 /hpf (0-8) Not Available [facility] [address] [place], [address], 04/13/2023 15:39:23 04/13/19 24 04/13/2023 UA W/REF ARSH CULTU RE hyaline cast 1 lpf (0-2) Not Available [facility] [address] [place], [address], 04/13/2023 15:39:23 04/13/19 24 04/13/2023 UA W/REF ARSH CULTU RE amorphous crystals SLIGHT /hpf Not Available [facility] [address] [place], [address], 04/13/2023 15:39:23 04/13/19 24 04/13/2023 UA W/REF ARSH CULTU RE clarity CLEAR (clear ) Not Available [facility] [address] [place], [address], 04/13/2023 15:39:23 04/13/19 24 04/13/2023 UA W/REF ARSH CULTU RE culture indication CULTUR E NOT INDICA CAS Not Available [facility] [address] [place], [address], 04/13/2023 15:39:23 04/13/19 24 04/13/2023 VITAM IN B12 vitamin B12 300 pg/mL (232-1 245) Not Available [facility] [address] [place], [address], 04/13/2023 19:14:11 04/13/19 24 04/13/2023 TSH TSH 1.21 uIU/m L (0.4-4 .2) Not Available [facility] [address] [place], [address], 04/13/2023 19:14:12 04/13/19 24 04/13/2023 FOLIC ACID folic acid 28.8 NG/mL (4.8-3 7.3) Not Available [facility] [address] [place], [address], 04/13/2023 19:16:30 04/13/19 24 04/14/2023 SYPHI LIS TESTI NG syphilis screen by joseph (neg) normal NEGAT FLAKO Refer ence range : Negat flako This test was perfo rmed on the Abbot t Archi tect immun oassa y syste m. Not Available [facility] [address] [place], [address], 04/14/2023 01:53:12 04/13/19 24 04/14/2023 SYPHI LIS TESTI NG RPR titer result NOT INDICA CAS Not Available [facility] [address] [place], [address], 04/14/2023 01:53:12 04/13/19 24 04/14/2023 SYPHI LIS TESTI NG tppa result NOT INDICA CAS Not Available [facility] [address] [place], [address], 04/14/2023 01:53:12 04/13/19 24 04/14/2023 SYPHI LIS TESTI NG syphilis interpretati on Indic ative of the absen ce of infec tion with Trepo nemal palli dum. Test may be negat flako in cases of incub ating or early prima ry syphi lis. Consi luz elena repea t testi ng in sever al weeks if clini bettie suspi cion is high. Not Available [facility] [address], [place], [address], 04/14/2023 01:53:12 08/14/19 24 08/14/2023 CMP14 +LP+H B A1C+A LB RU glucose 115 mg/dL 70-99 above high normal Not Available [facility] ([facility]) [address] [place], [address], 08/15/2023 16:07:03 08/14/19 24 08/14/2023 CMP14 +LP+H B A1C+A LB RU hemoglobin A1C 6.9 % 4.8-5. 6 above high normal Predi abete s: 5.7 - 6.4 Diabe renetta: >6.4 Glyce tawny contr ol for adult s with diabe renetta: <7.0 Not Available [facility] ([facility]) [address] [place], [address], 08/15/2023 16:07:03 08/14/19 24 08/14/2023 CMP14 +LP+H B A1C+A LB RU BUN 10 mg/dL 8-27 Not Available [facility] ([facility]) [address] [place], [address], 08/15/2023 16:07:03 08/14/19 24 08/14/2023 CMP14 +LP+H B A1C+A LB RU creatinine 0.87 mg/dL 0.57-1 .00 Not Available [facility] ([facility]) [address] [place], [address], 08/15/2023 16:07:03 08/14/19 24 08/14/2023 CMP14 +LP+H B A1C+A LB RU eGFR 74 mL/mi n/1.7 3 >59 Not Available [facility] ([facility]) [address] [place], [address], 08/15/2023 16:07:03 08/14/19 24 08/14/2023 CMP14 +LP+H B A1C+A LB RU BUN/creatini ne ratio 11 12-28 below low normal Not Available [facility] ([facility]) [address] [facility], [place], [address], 08/15/2023 16:07:03 08/14/19 24 08/14/2023 CMP14 +LP+H B A1C+A LB RU sodium 139 mmol/ L 134-14 4 Not Available [facility] ([facility]) [address] [place], [address], 08/15/2023 16:07:03 08/14/19 24 08/14/2023 CMP14 +LP+H B A1C+A LB RU potassium 4.8 mmol/ L 3.5-5. 2 Not Available [facility] ([facility]) [address] [place], [address], 08/15/2023 16:07:03 08/14/19 24 08/14/2023 CMP14 +LP+H B A1C+A LB RU chloride 102 mmol/ L 96-106 Not Available [facility] ([facility]) [address] [facility], [place], [address], 08/15/2023 16:07:03 08/14/19 24 08/14/2023 CMP14 +LP+H B A1C+A LB RU carbon dioxide, total 23 mmol/ L 20-29 Not Available [facility] ([facility]) [address] [place], [address], 08/15/2023 16:07:03 08/14/19 24 08/14/2023 CMP14 +LP+H B A1C+A LB RU calcium 9.3 mg/dL 8.7-10 .3 Not Available [facility] ([facility]) [address] [place], [address], 08/15/2023 16:07:03 06/28/20 24 08/14/2023 CMP14 +LP+H B A1C+A LB RU protein, total 6.9 g/dL 6.0-8. 5 Not Available [facility] ([facility]) [address] [place], [address], 08/15/2023 16:07:03 08/14/19 24 08/14/2023 CMP14 +LP+H B A1C+A LB RU albumin 4.1 g/dL 3.9-4. 9 Not Available [facility] ([facility]) [address] [place], [address], 08/15/2023 16:07:03 08/14/19 24 08/14/2023 CMP14 +LP+H B A1C+A LB RU globulin, total 2.8 g/dL 1.5-4. 5 Not Available [facility] ([facility]) [address] [place], [address], 08/15/2023 16:07:03 08/14/19 24 08/14/2023 CMP14 +LP+H B A1C+A LB RU bilirubin, total 0.2 mg/dL 0.0-1. 2 Not Available [facility] ([facility]) [address] [place], [address], 08/15/2023 16:07:03 08/14/19 24 08/14/2023 CMP14 +LP+H B A1C+A LB RU alkaline phosphatase 65 IU/L 44-121 Not Available [facility] ([facility]) [address] [place], [address], 08/15/2023 16:07:03 08/14/19 24 08/14/2023 CMP14 +LP+H B A1C+A LB RU AST (SGOT) 24 IU/L 0-40 Not Available [facility] ([facility]) [address] [place], [address], 08/15/2023 16:07:03 08/14/19 24 08/14/2023 CMP14 +LP+H B A1C+A LB RU ALT (SGPT) 31 IU/L 0-32 Not Available [facility] ([facility]) [address] [facility], [place], [address], 08/15/2023 16:07:03 08/14/19 24 08/14/2023 CMP14 +LP+H B A1C+A LB RU cholesterol, total 154 mg/dL 100-19 9 Not Available [facility] ([facility]) [address] [facility], [place], [address], 08/15/2023 16:07:03 08/14/19 24 08/14/2023 CMP14 +LP+H B A1C+A LB RU triglyceride s 162 mg/dL 0-149 above high normal Not Available [facility] ([facility]) [address] [facility], [place], [address], 08/15/2023 16:07:03 08/14/19 24 08/14/2023 CMP14 +LP+H B A1C+A LB RU HDL cholesterol 53 mg/dL >39 Not Available [facility] ([facility]) [address] [facility], [place], [id number], 08/15/2023 16:07:03 08/14/19 24 08/14/2023 CMP14 +LP+H B A1C+A LB RU VLDL cholesterol bettie 28 mg/dL 5-40 Not Available [facility] ([facility]) [address] [place], [address], 08/15/2023 16:07:03 08/14/19 24 08/14/2023 CMP14 +LP+H B A1C+A LB RU LDL chol calc ([facility]) 73 mg/dL 0-99 Not Available [facility] ([facility]) [address] [place], [address], 08/15/2023 16:07:03 08/14/19 24 08/14/2023 CMP14 +LP+H B A1C+A LB RU LDL calc comment: BURN[place] Not Available [facility] ([facility]) [address] [facility], [place], [address], 08/15/2023 16:07:03 08/14/19 24 08/15/2023 CMP14 +LP+H B A1C+A LB RU albumin, urine 5.6 ug/mL not estab. Not Available [facility] ([facility]) [address] [place], [address], 08/15/2023 16:07:03 08/14/19 24 08/15/2023 ALBUM IN/CR EAT RATIO , ROBINSON M UR creatinine, urine 43.9 mg/dL not estab. Not Available [facility] ([facility]) [address] [place], [address], 08/15/2023 16:07:04 08/14/19 24 08/15/2023 ALBUM IN/CR EAT RATIO , AMYO M UR alb/creat ratio 13 mg/g_ creat 0-29 Marilynn l: 0 - 29 Moder ately incre ased: 30 - 300 Sever felicitas incre ased: >300 Not Available [facility] ([facility]) [address] [facility], [place], [address], 08/15/2023 16:07:04 04/24/19 24 04/24/2023 MRI, head, w/wo contr ast No observ ation record ed. [email or web address] [facility] ([facility]) [address], [place], [address], 05/25/2023 09:50:07 Result Notes None recorded. Problems Name Problem SNOMED Code Status Onset Date Resolution Date Notes Provider Name and Address Organization Details Recorded Time Electroc portiadiogra m abnormal 007159293 Completed 200708/30/2013 RECORDED 10/01/19 08 8:29AM BY DELORIS MILAN MA, ANNOTATI ON/ADDEN DUM MEDINA Rouse, [facility] 6 10:51:32 Acute asthma 632180650 Completed 201208/30/2013 RECORDED 06/25/19 13 2:34PM BY DELORIS MILAN MA, ANNOTATI ON/ADDEN DUM MEDINA Rouse, [facility] 6 10:51:32 Acute bronchit is 31842665 Completed 200708/30/2013 RECORDED 10/01/19 08 8:29AM BY DELORIS MILAN MA, ANNOTSILVER ON/ADDEN DUM MEDINA Rouse, [facility] 6 10:51:32 Acute sinusiti s 66761047 Completed 201208/30/2013 RECORDED 06/25/19 13 2:34PM BY DELORIS MILAN MA, ANNOTATI ON/ADDEN DUM MEDINA Rouse, [facility] 6 10:42:01 Asthma 458621975 Active Not Available [facility] 4 19:50:26 Intrinsi c asthma 688051206 Completed 201108/30/2013 RECORDED 09/04/19 12 12:56PM BY DELORIS MILAN MA, ANNOTSILVER ON/ADDEN DUM MEDINA Rouse, [facility] 6 10:51:32 Screenin g for malignan t neoplasm of breast Completed 201208/30/2013 RECORDED 09/21/19 13 12:45PM BY ESTEPHANIE LIGHT MA, ANNOTSILVER ON/ADDEN DUM MEDINA Rouse, [facility] 6 10:51:32 Cellulit is and abscess of face 680514984 Completed 200808/30/2013 RESOLVED DATE: 07/04/19 09; IMPRESSI ON: PT IS IMMUNE SUPPRESS ED WITH HUMIRA FOR RA, TREAT WITH LEVAQUIN ; RECORDED 07/04/19 09 9:11PM BY JORGE Rai NP, ANNOTSILVER ON/ADDEN DUM MEDINA Rouse, [facility] 6 10:51:32 Chronic pain syndrome 182236797 Active Not Available [facility] 4 19:50:26 Chronic pain syndrome 770428116 Completed 201208/30/2013 RECORDED 03/17/19 13 9:38AM BY DELORIS MILAN MA, MIGDALIA ON/ADDEN DUM MEDINA Rouse, [facility] 6 10:51:32 Screenin g for malignan t neoplasm of colon Completed 201108/30/2013 RECORDED 09/04/19 12 12:56PM BY DELORIS MILAN MA, MIGDALIA ON/ADDEN DUM MEDINA Rouse, [facility] 6 10:51:32 Cough 41618279 Completed 201208/30/2013 RECORDED 06/25/19 13 2:34PM BY DELORIS MILAN MA, MIGDALIA ON/ADDEN DUM MEDINA Rosue, [facility] 6 10:51:32 General symptom 736240617 Completed 201108/30/2013 STORY: SIGNIFIC ANT DECREASE IN EXERCISE TOLERANC E WITH TACHYCAR MARGARETH.; RECORDED 09/04/19 12 12:56PM BY DELORIS MILAN MA, ANNOTATI ON/ADDEN DUM MEDINA Rouse, [facility] 6 10:51:32 Depressi ve disorder 84052210 Completed 02/26/2015 Meme miranda [facility] 4 15:15:46 Type 2 diabetes mellitus without complica tion 733838721 Completed 05/01/2017 MEDINA Rouse, [facility] 9 11:30:03 Diarrhea 08192248 Completed 201208/30/2013 IMPRESSI ON: RESOLVIN G PER PT. HAD A FORMED STOOL. SHE DID NOT DO THE STOOL TESTING AND WILL HOLD OFF SINCE DOES NOT HAVE LIQUID STOOL.; RECORDED 03/17/19 13 9:35AM BY DELORIS MILAN MA, ANNOTSILVER ON/ADDEN DUM MEDINA Rouse, [facility] 6 10:42:42 Dysphagi a 03817319 Completed 200708/30/2013 RESOLVED DATE: 01/20/20 08; RECORDED 01/20/20 08 4:23PM BY JORGE Rai NP, ANNOTATI ON/ADDEN DUM EMDINA Rouse, [facility] 6 10:51:32 Edema 752339797 Completed 201208/30/2013 RECORDED 09/21/19 13 12:45PM BY ESTEPHANIE LIGHT MA, ANNOTSILVER ON/ADDEN DUM MEDINA Rouse, [facility] 6 10:51:32 Long-ter m drug therapy Completed 201208/30/2013 RECORDED 05/19/19 13 12:57PM BY DELORIS MILAN MA, ANNOTSILVER ON/ADDEN DUM MEDINA Rouse, [facility] 6 10:51:32 Gastroes ophageal reflux disease 413667237 Active Not Available [facility] 4 19:50:26 Essentia l hyperten kris 11434204 Completed 03/15/2022 Cora Lara PA-C [address] [address], [place], [address] , [facility] 3 10:04:39 Exophtha lmos 10894282 Completed 201108/30/2013 RECORDED 09/04/19 12 12:56PM BY DELORIS MILAN MA, ANNOTATI ON/ADDEN DUM MEDINA Rouse, [facility] 6 10:51:32 Influenz a vaccine needed [id number] 06 Completed 201208/30/2013 RECORDED 10/23/19 13 4:09PM BY NELIDA OLIVARES, OFFICE VISIT MEDINA Rouse [facility] 6 10:51:32 Tobacco user 676823692 Completed 08/29/2015 MEDINA Rouse, [facility] 6 09:59:57 History of clinical finding in subject 019429001 Completed 01/29/2016 MEDINA Rouse, [facility] 6 10:42:37 Adult health examinat ion Completed 01/29/2016 MEDINA Rouse, [facility] 6 10:42:26 Follow-u p encounte r Completed 201308/30/2013 RECORDED 05/12/19 14 2:21PM BY ANAMARIA RIVERA MA, ANNOTATI ON/ADDEN DUM MEDINA Rouse, [facility] 6 10:51:32 Hyperlip idemia 27305122 Active Not Available [facility] 4 19:50:26 Immunosu ppressio n [id number] Completed 201108/30/2013 RECORDED 04/23/19 12 1:24PM BY MIGDALIA MEZA ON/ADDEN DUM MEDINA Rouse, [facility] 6 10:51:32 Kidney stone 08850283 Completed 201108/30/2013 RECORDED 09/04/19 12 12:56PM BY DELORIS MILAN MA, MIGDALIA ON/ADDEN DUM MEDINA Rouse, [facility] 6 10:51:32 Laborato ry procedur e performe d 511072957 Completed 201308/30/2013 RECORDED 05/12/19 14 2:21PM BY ANAMARIA RIVERA MA, ANNOTATI ON/ADDEN DUM MEDINA Rouse, [facility] 6 10:51:32 Leukocyt osis 262732141 Completed 201208/30/2013 RECORDED 09/21/19 13 12:45PM BY ESTEPHANIE LIGHT MA, ANNOTSILVER ON/ADDEN DUM MEDINA Rouse, [facility] 6 10:51:32 Spinal stenosis of lumbar region 79432934 Active Not Available [facility] 4 19:50:26 Lyme disease 36536882 Completed 201008/30/2013 RECORDED 02/18/19 11 1:17PM BY JASON IRIZARRY MD, ANNOTATI ON/ADDEN DUM MEDINA Rouse, [facility] 6 10:51:32 Malaise and fatigue 791035758 Completed 201208/30/2013 RECORDED 12/12/19 13 8:53AM BY DELORIS MILAN MA, ANNOTSILVER ON/ADDEN DUM MEDINA Rouse, [facility] 6 10:51:32 Renewal of prescrip tion Completed 201208/30/2013 RECORDED 05/19/19 13 12:57PM BY DELORIS MILAN MA, ANNOTATI ON/ADDEN DUM MEDINA Rouse, [facility] 6 10:51:32 Ulcerati ve rhinitis 34469125 Completed 200808/30/2013 DATE: 07/04/19 09; RECORDED 09/04/19 12 12:56PM BY DELORIS MILAN MA, ANNOTATI ON/ADDEN DUM MEDINA Rouse, [facility] 6 10:51:32 Obstruct flako sleep apnea syndrome 69076314 Completed 06/18/2020 Cora Lara PA-C [address], [place], [address] , [facility] 1 11:29:15 Localize d, primary osteoart hritis of the shoulder region 843130261 Completed 03/15/2022 Cora Lara PA-C [address], [place], [address] , [facility] 3 10:06:07 Bursitis 57311606 Completed 201108/30/2013 RECORDED 09/04/19 12 12:56PM BY DELORIS MILAN MA, ANNOTATI ON/ADDEN DUM MEDINA Rouse, [facility] 6 10:51:32 Otitis media 16398122 Completed 200808/30/2013 RESOLVED DATE: 07/04/19 09; RECORDED 07/04/19 09 9:11PM BY JORGE Rai NP, ANNOTATI ON/ADDEN DUM MEDINA Rouse, [facility] 6 10:51:32 Knee pain Completed 200708/30/2013 RECORDED 10/01/19 08 8:30AM BY DELORIS MILAN MA, ANNOTATI ON/ADDEN DUM Maritza miranda, [facility] 7 14:02:00 Peptic ulcer 98441200 Completed 201208/30/2013 RECORDED 03/11/19 13 1:05AM BY JORGE Rai NP, ANNOTATI ON/ADDEN DUM MEDINA Rouse, [facility] 6 10:51:32 Gastroin testinal obstruct ion 323014469 Completed 11/04/2016 Jason Irizarry MD [address], [place], [address] , [facility] 7 08:33:12 Persiste nt insomnia 161120456 Active Not Available [facility] 4 19:50:26 Pre-surg asher evaluati on Completed [...] CARDIAC ISSUES; RECORDED 01/12/20 13 4:03PM BY DELORIS MILAN MA, ANNOTSILVER ON/ADDEN DUM MEDINA Rouse, [facility] 6 10:51:32 Psoriasi s 0645820 Completed 03/15/2022 Cora Lara PA-C [address], [place], [address] , [facility] 3 10:06:55 Urine finding 226752925 Completed 201208/30/2013 IMPRESSI ON: ADD CULTURE; RECORDED 09/21/19 13 12:45PM BY ESTEPHANIE LIGHT MA, ANNOTATI ON/ADDEN DUM MEDINA Rouse, [facility] 6 10:51:32 Acute respirat ory failure 95722754 Completed 201108/30/2013 RECORDED 09/04/19 12 12:56PM BY DELORIS MILAN MA, ANNOTATI ON/ADDEN DUM MEDINA Rouse, [facility] 6 10:51:32 Rheumato id arthriti s 85944469 Completed 11/04/2016 Jason Irizarry MD [address] [facility] [address], [place], [address] , [facility] 7 08:33:58 Adult health examinat ion Completed 201108/30/2013 RECORDED 12/16/19 12 9:06AM BY DELORIS MILAN MA, ANNOTATI ON/ADDEN DUM MEDINA Rouse, [facility] 6 10:42:26 Morbid obesity 553791554 Active Not Available [facility] 4 19:50:26 Dyspnea 063942555 Completed 201208/30/2013 RECORDED 09/21/19 13 12:45PM BY ESTEPHANIE LIGHT MA, ANNOTATI ON/ADDEN DUM MEDINA Rouse, [facility] 6 10:51:32 Disorder of bursa of shoulder region 86694546 Completed 201208/30/2013 STORY: SHAYAN Javed HAS BEEN FOLLOWED BY DR. RAMACHANDRAN FOR RHEUMATO LOGY. UNDERLYI NG DIAGNOSI S OF RA AND PSORIATI C ARTHRITI S. HAS BEEN ON HUMIRA; RECORDED 09/21/19 13 12:45PM BY ESTEPHANIE LIGHT MA, ANNOTSILVER ON/ADDEN DUM MEDINA Rouse, [facility] 6 10:51:32 Conducti on disorder of the heart 97528376 Active Not Available [facility] 4 19:50:26 Administ ration of diphther ia and tetanus vaccine Completed 201208/30/2013 RECORDED 05/19/19 13 12:57PM BY DELORIS MILAN MA, ANNOTATI ON/ADDEN DUM MEDINA Rouse, [facility] 6 10:51:32 Full thicknes s rotator cuff tear 488806662 Completed 201208/30/2013 RECORDED 09/21/19 13 12:45PM BY ESTEPHANIE LIGHT MA, ANNOTATI ON/ADDEN DUM MEDINA Rouse, [facility] 6 10:51:32 Tobacco dependen ce syndrome 60716794 Completed 201108/30/2013 RECORDED 12/16/19 12 9:07AM BY DELORIS MILAN MA, ANNOTATI ON/ADDEN DUM MEDINA Rouse, [facility] 6 10:51:32 Essentia l hyperten kris 72382178 Completed 201108/30/2013 RECORDED 09/04/19 12 12:56PM BY DELORIS MILAN MA, ANNOTATI ON/ADDEN DUM Cora Lara PA-C [address] [facility] [address], [facility] [place], [address] , [facility] 3 10:04:39 Vitamin D deficien cy 40121838 Active Not Available [facility] 4 19:50:26 Electroc ardiogra m abnormal 495027503 Completed 200709/26/2013 RECORDED 10/01/19 08 8:29AM BY DELORIS MILAN MA, ANNOTATI ON/ADDEN DUM MEDINA Rouse, [facility] 6 10:51:32 Acute asthma 960474120 Completed 201209/26/2013 RECORDED 06/25/19 13 2:34PM BY DELORIS MILAN MA, ANNOTATI ON/ADDEN DUM MEDINA Rouse, [facility] 6 10:51:32 Acute bronchit is 76540285 Completed 200709/26/2013 RECORDED 10/01/19 08 8:29AM BY DELORIS MILAN MA, ANNOTATI ON/ADDEN DUM MEDINA Rouse, [facility] 6 10:51:32 Acute sinusiti s 72896865 Completed 201209/26/2013 RECORDED 06/25/19 13 2:34PM BY DELORIS MILAN MA, ANNOTSILVER ON/ADDEN DUM MEDINA Rouse, [facility] 6 10:42:01 Intrinsi c asthma 853573980 Completed 201109/26/2013 RECORDED 09/04/19 12 12:56PM BY DELORIS MILAN MA, ANNOTSILVER ON/ADDEN DUM MEDINA Rouse, [facility] 6 10:51:32 Screenin g for malignan t neoplasm of breast Completed 201209/26/2013 RECORDED 09/21/19 13 12:45PM BY ESTEPHANIE LIGHT MA, MIGDALIA ON/ADDEN DUM MEDINA Rouse, [facility] 6 10:51:32 Cellulit is and abscess of face 923829478 Completed 200809/26/2013 RESOLVED DATE: 07/04/19 09; IMPRESSI ON: PT IS IMMUNE SUPPRESS ED WITH HUMIRA FOR RA, TREAT WITH LEVAQUIN ; RECORDED 07/04/19 09 9:11PM BY JORGE Rai NP, MIGDALIA ON/ADDEN DUM MEDINA Rouse, [facility] 6 10:51:32 Screenin g for malignan t neoplasm of colon Completed 201109/26/2013 RECORDED 09/04/19 12 12:56PM BY DELORIS MILAN MA, MIGDALIA ON/ADDEN DUM MEDINA Rouse, [facility] 6 10:51:32 Cough 91166455 Completed 201209/26/2013 RECORDED 06/25/19 13 2:34PM BY DELORIS MILAN MA, ANNOTATI ON/ADDEN DUM MEDINA Rouse, [facility] 6 10:51:32 General symptom 738960362 Completed 201109/26/2013 STORY: SIGNIFIC ANT DECREASE IN EXERCISE TOLERANC E WITH TACHYCAR MARGARETH.; RECORDED 09/04/19 12 12:56PM BY DELORIS MILAN MA, MIGDALIA ON/ADDEN DUM MEDINA Rouse, [facility] 6 10:51:32 Diarrhea 04702457 Completed 201209/26/2013 IMPRESSI ON: RESOLVIN G PER PT. HAD A FORMED STOOL. SHE DID NOT DO THE STOOL TESTING AND WILL HOLD OFF SINCE DOES NOT HAVE LIQUID STOOL.; RECORDED 03/17/19 13 9:35AM BY DELORIS MILAN MA, MIGDALIA ON/ADDEN DUM MEDINA Rouse, [facility] 6 10:42:42 Dysphagi a 45207000 Completed 200709/26/2013 RESOLVED DATE: 01/20/20 08; RECORDED 01/20/20 08 4:23PM BY JORGE Rai NP, MIGDALIA ON/ADDEN DUM MEDINA Rouse, [facility] 6 10:51:32 Edema 850236501 Completed 201209/26/2013 RECORDED 09/21/19 13 12:45PM BY ESTEPHANIE LIGHT MA, MIGDALIA ON/ADDEN DUM MEDINA Rouse, [facility] 6 10:51:32 Long-ter m drug therapy Completed 201209/26/2013 RECORDED 05/19/19 13 12:57PM BY DELORIS MILAN MA, MIGDALIA ON/ADDEN DUM MEDINA Rouse, [facility] 6 10:51:32 Exophtha lmos 21053987 Completed 201109/26/2013 RECORDED 09/04/19 12 12:56PM BY DELORIS MILAN MA, ANNOTATI ON/ADDEN DUM MEDINA Rouse, [facility] 6 10:51:32 Influenz a vaccine needed 58148331141 06 Completed 201209/26/2013 RECORDED 10/23/19 13 4:09PM BY NELIDA OLIVARES, OFFICE VISIT MEDINA Rouse, [facility] 6 10:51:32 Follow-u p encounte r Completed 201309/26/2013 RECORDED 05/12/19 14 2:21PM BY ANAMARIA RIVERA MA, ANNOTATI ON/ADDEN DUM MEDINA Rouse, [facility] 6 10:51:32 Immunosu ppressio n [id number] Completed 201109/26/2013 RECORDED 04/23/19 12 1:24PM BY ALBERTO HAMMONDS, MIGDALIA ON/ADDEN DUM MEDINA Rouse, [facility] 6 10:51:32 Kidney stone 79297030 Completed 201109/26/2013 RECORDED 09/04/19 12 12:56PM BY DELORIS MILAN MA, ANNOTATI ON/ADDEN DUM MEDINA Rouse, [facility] 6 10:51:32 Laborato ry procedur e performe d 875526139 Completed 201309/26/2013 RECORDED 05/12/19 14 2:21PM BY ANAMARIA RIVERA MA, ANNOTSILVER ON/ADDEN DUM MEDINA Rouse, [facility] 6 10:51:32 Leukocyt osis 101629362 Completed 201209/26/2013 RECORDED 09/21/19 13 12:45PM BY ESTEPHANIE LIGHT MA, ANNOTATI ON/ADDEN DUM MEDINA Rouse, [facility] 6 10:51:32 Lyme disease 61876598 Completed 201009/26/2013 RECORDED 02/18/19 11 1:17PM BY JASON IRIZARRY MD, ANNOTATI ON/ADDEN DUM Deloris MEDINA Levin, [facility] 6 10:51:32 Malaise and fatigue 153214922 Completed 201209/26/2013 RECORDED 12/12/19 13 8:53AM BY DELORIS MILAN MA, ANNOTSILVER ON/ADDEN DUM MEDINA Rouse, [facility] 6 10:51:32 Renewal of prescrip tion Completed 201209/26/2013 RECORDED 05/19/19 13 12:57PM BY DELORIS MILAN MA, ANNOTATI ON/ADDEN DUM MEDINA Rouse, [facility] 6 10:51:32 Ulcerati ve rhinitis 74012281 Completed 200809/26/2013 DATE: 07/04/19 09; RECORDED 09/04/19 12 12:56PM BY DELORIS MILAN MA, ANNOTSILVER ON/ADDEN DUM MEDINA Rouse, [facility] 6 10:51:32 Bursitis 08165587 Completed 201109/26/2013 RECORDED 09/04/19 12 12:56PM BY DELORIS MILAN MA, ANNOTSILVER ON/ADDEN DUM MEDINA Rouse, [facility] 6 10:51:32 Otitis media 04335969 Completed 200809/26/2013 RESOLVED DATE: 07/04/19 09; RECORDED 07/04/19 09 9:11PM BY JORGE Rai NP, ANNOTATI ON/ADDEN DUM MEDINA Rouse, [facility] 6 10:51:32 Knee pain Completed 200709/26/2013 RECORDED 10/01/19 08 8:30AM BY DELORIS MILAN MA, JUDYATI ON/ADDEN DUM Maritza Bigby MEDINA null, [facility] 7 14:02:00 Peptic ulcer 13459086 Completed 201209/26/2013 RECORDED 03/11/19 13 1:05AM BY JORGE Rai NP, ANNOTSILVER ON/ADDEN DUM MEDINA Rouse, [facility] 6 10:51:32 Pre-surg asher evaluati on Completed 201209/26/2013 IMPRESSI ON: WILL NEED [...] CARDIAC ISSUES; RECORDED 01/12/20 13 4:03PM BY DELORIS MILAN MA, MIGDALIA ON/ADDEN DUM MEDINA Rouse, [facility] 6 10:51:32 Urine finding 287804446 Completed 201209/26/2013 IMPRESSI ON: ADD CULTURE; RECORDED 09/21/19 13 12:45PM BY ESTEPHANIE LIGHT MA, MIGDALIA ON/ADDEN DUM MEDINA Rouse, [facility] 6 10:51:32 Acute respirat ory failure 92163927 Completed 201109/26/2013 RECORDED 09/04/19 12 12:56PM BY DELORIS MILAN MA, ANNOTATI ON/ADDEN DUM MEDINA Rouse, [facility] 6 10:51:32 Dyspnea 172264479 Completed 201209/26/2013 RECORDED 09/21/19 13 12:45PM BY ESTEPHANIE LIGHT MA, ANNOTATI ON/ADDEN DUM MEDINA Rouse, [facility] 6 10:51:32 Disorder of bursa of shoulder region 71937490 Completed 201209/26/2013 STORY: SHAYAN LRa HAS BEEN FOLLOWED BY DR. RAMACHANDRAN FOR RHEUMATO LOGY. UNDERLYI NG DIAGNOSI S OF RA AND PSORIATI C ARTHRITI S. HAS BEEN ON HUMIRA; RECORDED 09/21/19 13 12:45PM BY ESTEPHANIE LIGHT MA, ANNOTATI ON/ADDEN DUM MEDINA Rouse, [facility] 6 10:51:32 Administ ration of diphther ia and tetanus vaccine Completed 201209/26/2013 RECORDED 05/19/19 13 12:57PM BY DELORIS MILAN MA, ANNOTATI ON/ADDEN DUM MEDINA Rouse, [facility] 6 10:51:32 Full thicknes s rotator cuff tear 260544626 Completed 201209/26/2013 RECORDED 09/21/19 13 12:45PM BY ESTEPHANIE LIGHT MA, ANNOTATI ON/ADDEN DUM MEDINA Rouse, [facility] 6 10:51:32 Tobacco dependen ce syndrome 36133101 Completed 201109/26/2013 RECORDED 12/16/19 12 9:07AM BY DELORIS MILAN MA, ANNOTATI ON/ADDEN DUM MEDINA Rouse, [facility] 6 10:51:32 Body mass index 40+ - severely obese 879381137 Completed 02/27/2015 Meme miranda [facility] 3 10:07:59 Acute sinusiti s 21132463 Completed 01/29/2016 MEDINA Rouse, [facility] 6 10:42:01 Sinusiti s 56769813 Completed 01/29/2016 MEDINA Rouse, [facility] 6 10:42:32 Body mass index 30+ - obesity 239214025 Completed 03/15/2022 Cora Lara PA-C [address], [place], [address] , [facility] 3 10:03:53 Low back pain 152837696 Completed 03/13/2022 Cora Lara PA-C [address], [place], [address] , [facility] 3 14:00:57 Major depressi ve disorder 729315080 Completed 03/15/2022 Cora Lara PA-C [address], [place], [address] , [facility] 3 10:05:36 Blood in urine 63707932 Completed 07/02/2016 Maritza miranda [facility] 7 14:02:09 Diarrhea 14704085 Completed 01/29/2016 MEDINA Rouse [facility] 6 10:42:42 Right lower quadrant pain 322149072 Completed 11/03/2016 MEDINA Rouse [facility] 7 13:03:20 Ex-smoke r 0618311 Active 2015 Not Available [facility] 4 19:50:27 Shoulder pain 52175027 Completed 07/02/2016 Maritza miranda [facility] 7 14:02:03 Knee pain Completed 07/02/2016 Maritza miranda, [facility] 7 14:02:00 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 32099779 Active Not Available [facility] 4 19:50:27 Diabetic peripher al neuropat hy 592523602 Active 2016 Not Available [facility] 4 19:50:26 Vitamin B12 deficien cy (non anemic) 08780153 Active 2017 Not Available [facility] 4 19:50:26 Muscle pain 73847428 Active 2017 Not Available [facility] 4 19:50:27 Type 2 diabetes mellitus 62252305 Completed 201805/24/2018 MEDINA Rouse, [facility] 9 14:25:08 Type 2 diabetes mellitus without complica tion 858859143 Completed 10/12/2018 well controll ed after bariatri c surgery in 12/2013 MEDINA Rouse, [facility] 9 11:30:03 Hypergly cemia 34369073 Completed 201803/15/2022 Cora Lara PA-C [address] [facility] [address], [place], [address] , [facility] 3 10:04:55 Obesity 971597383 Completed 201806/18/2020 Fabi Bates RN null, [facility] 1 15:35:04 Obstruct flako sleep apnea of adult 71441667223 03 Completed 202003/13/2022 Dx: G47.33 (mild) Cora Lara PA-C [address] [facility] [address], [place], [address] , [facility] 3 13:58:48 Obstruct flako sleep apnea syndrome 78808039 Active 2020 Not Available [facility] 4 19:50:27 Severe dry skin 432137196 Active 2020 Not Available [facility] 4 19:50:27 Psoriati c arthriti s 351675668 Active 2021 Not Available [facility] 4 19:50:26 Pain of right shoulder joint 58186645965 715552 Active 2021 Not Available [facility] 4 19:50:26 COVID-19 373079915 Active 2022 Not Available [facility] 4 19:50:27 Pneumoni tis 673457729 Completed 202203/15/2022 Cora Lara PA-C [address] [facility] [address], [place], [address] , [facility] 3 10:06:45 Hyperten sive renal disease 84020853 Active 2022 Not Available [facility] 4 19:50:26 Chronic kidney disease stage 2 385909704 Active 2022 Not Available [facility] 4 19:50:26 Iron deficien cy anemia 36597379 Active 2022 Not Available [facility] 4 19:50:27 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 78314560231 12800 Active 2023 Cora Lara PA-C [address] [facility] [address], [place], [address] , [facility] 4 10:51:38 Mild memory disturba nce 923164190 Completed 202311/23/2023 Cora Lara PA-C [address], [place], [address] , [facility] 4 11:03:27 Mild major depressi on, single episode 38978186 Active 2023 Meme miranda, [facility] 4 15:15:35 Mild neurocog nitive disorder 100346709 Active 2023 Cora Lara PA-C [address] [facility] [address], [place], [address] , [facility] 4 14:50:45 Notes:Some problems listed i n Documents: #[id number], #[id number], #[id number] could not be added to this patient's chart. Please review these documents and add these problems to the patient's chart manually as needed. Problem Notes None recorded. Procedures Surgical History Date Name Laterality Status Provider Name and Address Organization Details Recorded Time 2023 injection of sacroiliac joint completed Sonia Andrea [facility] 4 10:41:48 2023 diabetic retinopathy screening completed Sonia Andrea [facility] 4 12:36:50 2022 Chronic Pain Assessment completed Kesha Strauss MA [facility] 3 10:46:00 2022 Colonoscopy completed Sonia Andrea [facility] 3 11:35:01 2022 esophagogastroduodenoscopy completed Issa Andrea [facility] 3 11:35:07 2020 Diabetic Foot Exam (Monofilament) completed Cora Lara PA-C [address] [facility] [address], [place], [address], [facility] 1 21:06:41 2020 polysomnography completed Deloris matias MA [facility] 1 15:44:34 2020 arthroplasty of left shoulder completed Deloris matias MA [facility] 1 15:35:54 2019 Orthopedic Surgery completed Deloris matias MA [facility] 1 15:36:33 2018 injection completed Martita Cooley [facility] 9 10:18:41 2018 Diabetic Foot Exam (Monofilament) completed Deloris matias MA [facility] 9 14:23:33 2018 release of trigger thumb completed Deloris matias MA [facility] 9 14:36:23 2017 Diabetic Foot Exam (Monofilament) completed Deloris matias MA [facility] 8 10:31:14 2017 Glaucoma surgery completed Jason Irizarry MD [address], [place], [address], [facility] 8 11:14:40 2016 Carpal tunnel surgery completed Deloris matias MA [facility] 8 11:06:27 2016 Nerve surgery completed Jason Irizarry MD [address], [place], [address], [facility] 8 11:46:25 2016 Mini-Cog Test completed Deloris matias MA [facility] 7 13:00:13 2016 Chronic Pain Assessment completed Deloris matias MA [facility] 7 12:59:42 2016 Most Recent Mammogram completed Virginia Honeycutt [facility] 9 10:15:24 2016 Other completed Areli Cruz [facility] 7 14:27:22 2016 decompression of lumbar spine completed Deloris matias MA [facility] 1 15:51:46 2013 Lap sleeve gastrectomy completed Maritza Barragan MA [facility] 4 13:26:44 2012 Date of Last Colonoscopy completed Maritza Barragan MA [facility] 5 09:28:05 2008 Mammogram screening completed Deloris matias MA [facility] 8 11:10:32 Total hysterectomy completed Deloris matias MA [facility] 7 14:44:54 Back Surgery completed Deloris matias MA [facility] 8 11:10:06 Cholecystectomy completed Kathrin Martinez, [facility] [address], [facility] [place], [address], [facility] 4 10:19:07 Hernia Repair completed Kathrin Martinez, [facility] [address], [facility] [place], [address], [facility] 4 10:19:07 Imaging Results Imaging Date Name Status LastModified by Organiz ation Details LastModified Time 04/24/2023 MRI, head, w/wo contrast completed [facility] ([facility] [address], [place], [address], 05/25/2023 09:50:07 Procedure Notes None recorded. Medical Equipment None Reported. Allergies Allergen ID Allergen Name Allergen Category Reaction Reaction Severity Criticality Documentation Date Start Date Code Code System Note Provider Name and Address Organization Details Recorded Time 88486 adhesive environme nt,medica tion rash Not available Not available 03/14/2016 [facility] 14:43:07 6387 Cleocin medicatio n hives itching Not available Not available Not available 08/30/20132013 2 RxNorm [facility] 7 14:42:54 6388 codeine medicatio n Not available Not available Not available 08/30/20132012 2670 RxNorm NAUSE A Not Available [facility] 4 19:50:25 6389 Decadron medicatio n hives itching Not available Not available Not available 08/30/20132013 69138 2 RxNorm Deloris matias [facility], [facility] 7 14:42:50 Medications Name Sig Start Date Stop Date Status Note LastModified by Organization Details LastModified Time tetracycl ine 500 mg capsule TWO TIMES DAILY 09/14 completed RECORDED 09/15/19 10 1:08PM BY DELORIS MILAN MA, OFFICE VISIT; Not Available Not [...] 12/31 completed RECORDED 01/01/20 13 3:03PM BY ESTEPHANIE LIGHT MA, OFFICE VISIT;DR Ra CASANOVA Not [...] 4:16PM BY JORGE Rai NP, ANNOTATI ON/CHARLEE LUJAN; Not Available Not Available Not [...] 05/04/19 08 9:34AM BY OPHELIA GARCIA MA, MIGDALIA ON/ DUM; Not Available Not Available Not [...] 08 9:10PM BY JORGE Rai NP, MIGDALIA ON/ DUM; Not Available Not Available Not [...] RECORDED 03/25/19 08 9:09PM BY JORGE Rai NP, ANNOTATI ON/CHARLEE LUJAN; Not Available Not Available Not Available tramadol [...] 09/03 completed RECORDED 09/04/19 12 1:01PM BY DELORIS MILAN MA, OFFICE VISIT;MANNY CASANOVA Not Available Not Available Not Available amitripty line 25 mg tablet Take 4 tablets every day by oral route at bedtime. 05/24 completed Not Available Not Available Not Available prednisol one acetate 1 % eye drops,willi odom INSTILL ONE DROP INTO LEFT EYE FOUR TIMES DAILY 07/08 completed Not Available Not Available Not Available Vitamin C 1,000 mg tablet Take 1 tablet every day by oral route. 01/12 completed Not Available Not Available Not Available calcium 500 mg (as calcium carbonate 1,250 mg) tablet QD 12/11 completed RECORDED 12/12/19 13 8:57AM BY DELORIS MILAN MA, OFFICE VISIT; Not Available Not [...] 03/17 completed RECORDED 03/17/19 13 9:45AM BY DELORIS MILAN MA, OFFICE VISIT;PU LMONARY PRESCRIB ES Not Available Not Available Not Available Emy 30 mg capsule,e xtended release BID 11/07 completed RECORDED 11/08/19 08 4:16PM BY JORGE Rai NP, ANNOTATI ON/CHARLEE LUJAN; Not Available Not Available Not Available metoprolo [...] 09/30 completed RECORDED 10/01/19 08 8:33AM BY DELORIS MILAN MA, OFFICE VISIT; Not Available Not [...] DREW ON/ADDEN DUM;THIS ORDER DISCONTI NUED PER [facility]. Not Available Not Available Not Available albuterol (refill) 90 mcg/actua tion aerosol inhaler EVERY FOUR HOURS, NEEDED 09/15 completed RECORDED 09/29/19 09 10:31AM BY JORGE Rai NP, MEDICATI ON AUTO-BRENDON CTIVATIO N; Not Available [...] 09/30 completed RECORDED 10/01/19 08 8:33AM BY DELORIS MILAN MA, OFFICE VISIT; Not Available Not [...] Not Available Not Available Not Available Fluvirin 8547-3900 45 mcg (15 mcg x 3)/0.5 mL [...] Not Available Vitals Date Recorded Body height Heart rate Oxygen saturation Oxygen saturation in Arterial blood by Pulse oximetry Body temperature Systolic blood pressure Diastolic blood pressure Provider Name and Address Organization Details Last Updated DateTime 4 161.29 cm 76 /min 97 % 97 % 97.7 [degF] 137 mm[Hg] 77 mm[Hg] Bob monsalve MA [facility] 4 11:03:34 Date Recorded Body height Body mass index (BMI) Body weight Heart rate Oxygen saturation Oxygen saturation in Arterial blood by Pulse oximetry Body temperature Systolic blood pressure Diastolic blood pressure Provider Name and Address Organization Details Last Updated DateTime 4 161.29 cm 41.7 kg/m2 502401. 58 g 110 /min 96 % 96 % 98.4 [degF] 124 mm[Hg] 75 mm[Hg] Bob MoseleyMercy monsalve MA [facility] 4 10:59:45 Date Recorded Body height Body mass index (BMI) Body weight Heart rate Oxygen saturation Oxygen saturation in Arterial blood by Pulse oximetry Body temperature Systolic blood pressure Diastolic blood pressure Provider Name and Address Organization Details Last Updated DateTime 4 161.29 cm 41 kg/m2 052971. 21 g 118 /min 99 % 99 % 95.9 [degF] 138 mm[Hg] 83 mm[Hg] Kylah Dean MA [facility] 4 13:53:36 Date Recorded Heart rate Provider Name an d Address Organization Details Last Updated DateTime 08/17/2023 92 /min Cora Reid [address], [address], [facility] 08/17/2023 14:57:34 Date Recorded Body height Provider Name an d Address Organization Details Last Updated DateTime 11/10/2023 161.29 cm Nelida Olivares [facility] 11/10/2023 15:30:07 Date Recorded Body height Body mass index (BMI) Body weight Heart rate Oxygen saturation Oxygen saturation in Arterial blood by Pulse oximetry Body temperature Systolic blood pressure Diastolic blood pressure Provider Name and Address Organization Details Last Updated DateTime 4 161.29 cm 41.1 kg/m2 497632. 8 g 105 /min 99 % 99 % 97.3 [degF] 145 mm[Hg] 91 mm[Hg] Kylah Dean MA [facility] 4 10:18:43 Date Recorded Systolic blood pressure Diastolic blood pressure Provider Name and Address Organization Details Last Updated DateTime 11/23/2023 126 mm[Hg] 76 mm[Hg] Cora Lara PA-C [address] [address], [place], [address], [facility] 11/23/2023 11:18:46 Social History Question Answer Notes LastModified by Organizat ion Details LastModified Time Tobacco Smoking Status Former Smoker Nelida Olivares MA null, [facility] 10/31/2013 09:58:43 Do You Have An Advance Directive? Yes HCP Information not available 01/16/2020 What Is Your Level Of Alcohol Consumption? 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 13 Quit In 2002 At Age 42 Information not available 08/25/2014 [...] virus, trivalent, PF 11/21/2014 completed Not Available [facility] 2023 19:50:27 Pneumococcal conjugate PCV 13 11/21/2014 completed Not Available [facility] 03/06/2023 19:50:27 Tdap 12/26/2014 completed Not Available [facility] 19:50:27 Influenza, split virus, trivalent, preservative 10/18/2015 completed Not Available [facility] 03/06/2023 19:50:27 COVID-19, mRNA, LNP-S, PF, 30 mcg/0.3 mL dose 06/07/2020 completed Not Available [facility] 03/06/2023 19:50:27 COVID-19, mRNA, LNP-S, PF, 30 mcg/0.3 mL dose 06/28/2020 completed Not Available [facility] 03/06/2023 19:50:27 COVID-19, mRNA, LNP-S, PF, 30 mcg/0.3 mL dose 12/28/2020 completed Not Available [facility] 03/06/2023 19:50:27 Influenza, split virus, quadrivalent, PF 10/06/2019 completed Not Available [facility] 03/06/2023 19:50:27 Influenza, split virus, trivalent, preservative 11/20/2020 completed Not Available [facility] 03/06/2023 19:50:27 zoster recombinant 05/31/2021 completed Not Available [facility] 03/06/2023 19:50:27 COVID-19, mRNA, LNP-S, PF, 30 mcg/0.3 mL dose, ciarra-sucrose 06/17/2021 completed Not Available [facility] 03/06/2023 19:50:27 zoster recombinant 01/15/2021 completed Not Available [facility] 03/06/2023 19:50:27 Influenza, split virus, quadrivalent, PF 11/17/2018 completed Not Available [facility] 03/06/2023 19:50:27 Influenza, split virus, quadrivalent, PF 10/01/2016 completed Not Available [facility] 03/06/2023 19:50:27 Influenza, split virus, quadrivalent, PF 11/06/2017 completed Not Available [facility] 03/06/2023 19:50:27 Influenza, MDCK, quadrivalent, PF 12/06/2021 completed Not Available [facility] 03/06/2023 19:50:27 Influenza, split virus, trivalent, PF 10/31/2013 completed Not Available [facility] 2019 02:21:58 pneumococcal polysaccharide PPV23 07/18/1995 completed Not Available [facility] 2023 19:50:27 pneumococcal polysaccharide PPV23 12/25/1998 completed Not Available [facility] 2023 19:50:27 Influenza, split virus, trivalent, preservative 12/10/2005 completed Not Available [facility] 03/06/2023 19:50:27 Td (adult), 2 Lf tetanus toxoid, preservative free, adsorbed 03/03/2006 completed Not Available [facility] 03/06/2023 19:50:27 Influenza, split virus, trivalent, preservative 11/27/2006 completed Not Available [facility] 03/06/2023 19:50:27 Influenza, split virus, trivalent, preservative 10/18/2007 completed Not Available [facility] 03/06/2023 19:50:27 Influenza, split virus, trivalent, preservative 10/30/2008 completed Not Available [facility] 03/06/2023 19:50:27 Influenza, split virus, trivalent, preservative 11/12/2009 completed Not Available [facility] 03/06/2023 19:50:27 Influenza, split virus, trivalent, preservative 10/14/2011 completed Not Available [facility] 03/06/2023 19:50:27 Tdap 03/17/2012 completed Not Available [facility] 19:50:27 influenza, seasonal, intradermal, preservative free 10/22/2012 completed Not Available [facility] 19:50:27 Influenza, split virus, quadrivalent, PF 12/08/2022 completed Meme miranda [facility] 12/08/2022 14:44:09 Past Encounters Encounter ID Performer Location Encounter Start Date Encounter Closed Date Diagnosis/Indication Diagnosis SNOMED-CT Code Diagnosis ICD10 Code [id number] autoEComm erce [address] [facility] [place] [address] 03/13/2006 00:00:00 [id number] autoEComm erce [address] [facility] [address] [place] [address] 03/03/2006 00:00:00 [id number] autoEComm erce [address] [facility] [place] [address] 01/30/2006 00:00:00 [id number] autoEComm erce [address] [facility] [place] [address] 12/10/2005 00:00:00 [id number] autoEComm erce [address] [facility] [place] [address] 05/12/2006 00:00:00 [id number] autoEComm erce [address] [facility] [place] [address] 07/07/2006 00:00:00 [id number] autoEComm erce [address] [facility] [place] [address] 08/07/2006 00:00:00 [id number] autoEComm erce [address] [facility] [place] [address] 10/09/2006 00:00:00 [id number] autoEComm erce [address] [facility] [place] [address] 11/27/2006 00:00:00 [id number] autoEComm erce [address] [facility] [place] [address] 12/10/2006 00:00:00 [id number] autoEComm erce [address] [facility] [place] [address] 01/12/2007 00:00:00 [id number] autoEComm erce [address] [facility] [place] [address] 01/22/2007 00:00:00 [id number] autoEComm erce [address] [facility] [place] [address] 03/25/2007 00:00:00 [id number] autoEComm erce [address] [facility] [place] [address] 05/04/2007 00:00:00 [id number] autoEComm erce [address] [facility] [place] [address] 08/05/2007 00:00:00 [id number] autoEComm erce [address] [facility] [place] [address] 08/18/2007 00:00:00 [id number] autoEComm erce [address] [facility] [place] [address] 09/02/2007 00:00:00 [id number] autoEComm erce [address] [facility] [place] [address] 10/01/2007 00:00:00 [id number] autoEComm erce [address] [facility] [place] [address] 12/11/2007 00:00:00 [id number] autoEComm erce [address] [facility] [place] [address] 01/03/2008 00:00:00 [id number] autoEComm erce [address] [facility] [place] [address] 01/20/2008 00:00:00 [id number] autoEComm erce [address] [facility] [place] [address] 04/06/2008 00:00:00 [id number] autoEComm erce [address] [facility] [place] [address] 04/13/2008 00:00:00 [id number] autoEComm erce [address] [facility] [place] [address] 07/03/2008 00:00:00 [id number] autoEComm erce [address] [facility] [place] [address] 10/09/2008 00:00:00 [id number]Comm [address] [place] [address] 12/21/2008 00:00:00 [id number] autoEComm erce [address] [place] [address] 01/26/2009 00:00:00 [id number] autoEComm erce [address] [facility] [address] [place] [address] 05/09/2009 00:00:00 [id number] autoEComm erce [address] [place] [address] 08/10/2009 00:00:00 [id number] autoEComm erce [address] [facility] [address] [place] [address] 09/14/2009 00:00:00 [id number] autoEComm erce [address] [facility] [place] [address] 11/12/2009 00:00:00 [id number] autoEComm erce [address] [facility] [place] [address] 02/18/2010 00:00:00 [id number] autoEComm erce [address] [facility] [place] [address] 07/10/2010 00:00:00 [id number] autoEComm erce [address] [facility] [place] [address] 10/02/2010 00:00:00 [id number] autoEComm erce [address] [facility] [place] [address] 01/20/2011 00:00:00 [id number] autoEComm erce [address] [facility] [place] [address] 05/26/2011 00:00:00 [id number] autoEComm erce [address] [facility] [place] [address] 09/04/2011 00:00:00 [id number] autoEComm erce [address] [facility] [place] [address] 10/14/2011 00:00:00 [id number] autoEComm erce [address] [facility] [place] [address] 12/16/2011 00:00:00 [id number] autoEComm erce [address] [facility] [address] [place] [address] 01/19/2012 00:00:00 [id number] autoEComm erce [address] [facility] [place] [address] 03/17/2012 00:00:00 [id number] autoEComm erce [address] [facility] [place] [address] 05/18/2012 00:00:00 [id number] autoEComm erce [address] [facility] [place] [address] 06/24/2012 00:00:00 [id number] autoEComm erce [address] [facility] [place] [address] 08/17/2012 00:00:00 [id number] autoEComm erce [address] [facility] [place] [address] 09/20/2012 00:00:00 [id number] autoEComm erce [address] [facility] [place] [address] 10/22/2012 00:00:00 [id number] autoEComm erce [address] [facility] [place] [address] 12/11/2012 00:00:00 [id number] autoEComm erce [address] [facility] [place] [address] 12/31/2012 00:00:00 [id number] autoEComm erce [address] [facility] [place] [address] 05/11/2013 00:00:00 [id number] autoEComm erce [address] [facility] [place] [address] 08/12/2013 00:00:00 [id number] Jason Irizarry MD Main Office [address] [facility] [address] [place] [address] 10/31/2013 09:30:33 10/31/2013 10:30:03 Pre-surgery evaluation 495807519 Needs infl uenza immunization 340282529 Morbid obesity 201287444 Type 2 margareth betes mellitus without complication 048832967 Essential hypertension 30792385 Hyperlipidemia 37238644 Gastroesop hageal reflux disease 872797215 614433 Main Office [address] [address] [place] [address] 11/09/2013 10:55:48 11/09/2013 11:43:49 Type 2 diabetes mellitus without complication 973423481 Body mass index 40+ - severely obese 569993322 303640 Main Office [address] [address] [place] [address] 01/20/2014 13:04:43 01/20/2014 13:55:09 Type 2 diabetes mellitus without complication 566216759 Body mass index 40+ - severely obese 416360393 467559 Maritza Barragan MA Main Office [address] [address] [place] [address] 02/28/2014 13:59:05 02/28/2014 14:52:32 Acute sinusitis 57331758 670163 Deloris chauhan MA Main Office [address] [address] [place] [address] 05/08/2014 09:23:47 05/08/2014 10:33:20 Adult health examination 592762661 Essential hypertension 46333480 Hyperlipidemia 33197478 Obstructiv e sleep apnea syndrome 98339380 Type 2 margareth betes mellitus without complication 866718073 Body mass index 30+ - obesity 282927509 Low back pain 926392915 Major depr essive disorder 810885803 881045 Estephanie Light Main Office [address] [address] [place] [address] 06/12/2014 14:01:32 06/12/2014 15:50:43 Low back pain 434216705 793116 Main Office [address] [address] [place] [address] 08/25/2014 10:09:07 08/25/2014 11:20:31 Type 2 diabetes mellitus without complication 341937741 Essential hypertension 39101401 Low back pain 405752254 Obstructiv e sleep apnea syndrome 73835123 702059 Jason Irizarry MD Main Office [address] [address] [place] [address] 02/27/2015 10:20:53 02/27/2015 11:13:10 Type 2 diabetes mellitus without complication 244808912 E11.9 Essential hypertension 89675467 I10 Major depr essive disorder 007597692 F32.9 Screening for malignant neoplasm of breast 782445762 Z12.39 Body mass index 30+ - obesity 799887410 Z68.31 E66.9 Blood in urine 22985901 R31.9 Low back pain 970171675 M54.5 [id number] Jason Irizarry MD Main Office [address] [address] [place] [address] 06/28/2015 13:53:13 06/28/2015 14:50:27 Diarrhea 39009741 R19.7 Right lowe r quadrant pain 593658941 R10.31 [id number] Jason Irizarry MD Main Office [address] [address] [place] [address] 08/29/2015 09:34:29 08/29/2015 10:56:41 Adult health examination 600426983 Z00.00 Type 2 margareth betes mellitus without complication 888991191 E11.9 Essential hypertension 02666573 I10 Major depr essive disorder 746664364 F32.9 Screening for malignant neoplasm of breast 116849977 Z12.39 Low back pain 832601015 M54.5 Shoulder pain 72092670 M 25.512 Knee pain 85415869 M25.5 61 [id number] Jason Irizarry MD Main Office [address] [address] [place] [address] 01/29/2016 10:36:51 01/29/2016 11:20:06 Lumbar radiculopathy 745620589 M54.16 [id number] Jason Irizarry MD Main Office [address] [address] [place] [address] 03/05/2016 08:38:37 03/05/2016 09:56:35 Type 2 diabetes mellitus without complication 237653015 E11.9 Essential hypertension 08186002 I10 Low back pain 203175125 M54.5 [id number] Jason Irizarry MD Main Office [address] [address] [place] [address] 03/14/2016 14:11:21 03/14/2016 15:21:39 Pre-surgery evaluation 925306807 Z01.818 Leukocytes in urine 2757 46316 R82.71 Type 2 margareth betes mellitus without complication 756177990 E11.9 Essential hypertension 37813742 I10 Obstructiv e sleep apnea syndrome 81051916 G47.33 [id number] Meme Rehmano Main Office [address] [address] [place] [address] 05/05/2016 12:40:09 05/05/2016 14:03:25 Transition of care 5807029304 105 Z75.8 History of excision of lamina of lumbar vertebra for decompression of spinal cord 354371792 Z98.890 Essential hypertension 25260726 I10 Type 2 margareth betes mellitus without complication 568027105 E11.9 Obstructiv e sleep apnea syndrome 09050198 G47.33 Leukocytosis 016617382 D 72.829 [id number] Jason Irizarry MD Main Office [address] [address] [place] [address] 07/02/2016 13:46:40 07/02/2016 14:50:16 Insomnia 696631424 G47.00 Fatigue 63086169 R53.83 Loss of appetite 0129539 6 R63.0 Fever 587392075 R50.9 [id number] Jason Irizarry MD Main Office [address] [address] [place] [address] 07/30/2016 12:42:31 07/30/2016 13:39:57 Chronic pain syndrome 120435517 G89.4 Dysuria 20640778 R30.0 Type 2 margareth betes mellitus 70588861 E11.9 Screening for malignant neoplasm of breast 040641515 Z12.39 Insomnia 849747908 G47.0 0 [id number] Eric Castillo MD Main Office [address] [address] [place] [address] 08/29/2016 12:17:56 08/29/2016 13:50:56 Microcytic anemia 535242398 D50.9 Essential hypertension 43100480 I10 [id number] Jason Irizarry MD Main Office [address] [address] [place] [address] 08/30/2016 10:26:06 08/30/2016 10:27:27 Screening for malignant neoplasm of colon 322030192 Z12.11 [id number] Jason Irizarry MD Main Office [address] [address] [place] [address] 09/05/2016 09:54:11 09/05/2016 10:35:40 Anemia due to unknown mechanism 74440804 D64.9 Essential hypertension 29484361 I10 [id number] Jason Irizarry MD Main Office [address] [address] [place] [address] 10/01/2016 10:23:51 10/01/2016 11:33:04 Anemia due to unknown mechanism 22477352 D64.9 Essential hypertension 45596590 I10 Needs infl uenza immunization 334112756 Z23 Body mass index 30+ - obesity 834137695 Z68.30 [id number] Jason Irizarry MD Main Office [address] [address] [place] [address] 11/03/2016 12:37:50 11/03/2016 14:56:18 Adult health examination 898194253 Z00.00 Type 2 margareth betes mellitus without complication 577485176 E11.9 Body mass index 30+ - obesity 608222870 Z68.31 E66.9 Spinal emile nosis of lumbar region 51400390 M48.06 Major depr essive disorder 681472483 F32.9 Chronic pain syndrome 37 1738352 G89.4 Essential hypertension 06732719 I10 Obstructiv e sleep apnea syndrome 66142788 G47.33 [id number] Jason Irizarry MD Main Office [address] [address] [place] [address] 05/01/2017 10:25:14 05/01/2017 12:07:41 Diabetic peripheral neuropathy 291260117 E11.40 Screening for malignant neoplasm of breast 708963469 Z12.31 Hepatitis C screening 41 9014562 Z11.59 Essential hypertension 72941427 I10 Spinal emile nosis of lumbar region 00786324 M48.061 Obstructiv e sleep apnea syndrome 26503789 G47.33 Polyneuropathy 28134299 A69.22 Obesity 665564883 E66.9 Body mass index 30+ - obesity 976400678 Z68.30 [id number] Meme Fernandez Main Office [address] [address] [place] [address] 08/22/2017 10:26:28 08/22/2017 11:25:44 Contusion of lower limb 49698445 S80.12XA [facility] ed risk for falls 172444523 Z91.81 Fall 2559885 W18.2XXA [id number] Jason Irizarry MD Main Office [address] [address] [place] [address] 11/06/2017 10:02:23 11/06/2017 11:45:45 Diabetic peripheral neuropathy 859845067 E11.40 Adult heal th examination 471537157 Z00.00 Needs infl uenza immunization 164505107 Z23 Hyperlipidemia 78398002 E78.5 Body mass index 30+ - obesity 544855302 E66.01 Z68.35 Muscle pain 89892428 M79 .1 Mild persi stent allergic asthma 0153053283 7611668 J45.30 [id number] Meme Fernandez Main Office [address] [address] [place] [address] 05/24/2018 14:09:52 05/24/2018 15:24:14 Type 2 diabetes mellitus without complication 417728944 E11.9 Diabetic p eripheral neuropathy 264008549 E11.40 Body mass index 30+ - obesity 985113337 E66.01 [id number] Meme Fernandez Main Office [address] [address] [place] [address] 11/17/2018 10:06:59 11/17/2018 11:32:24 Adult health examination 858257008 Z00.00 Needs infl uenza immunization 370127802 Z23 Body mass index 30+ - obesity 821724662 Z68.36 Major depr essive disorder 368219230 F32.9 Essential hypertension 24910358 I10 Hyperglycemia 08902481 R 73.9 Myalgia/my ositis - multiple 729831858 M79.10 Paresthesi a of upper limb 25557793 R20.2 Obesity 517675526 E66.9 [id number] Margareth Cordovachristophe Main Office [address] [address] [place] [address] 12/30/2018 13:01:11 12/30/2018 13:44:25 Pre-surgery evaluation 127332541 Z01.818 Pain of le ft shoulder joint 6241697213 3820685 M25.512 [id number] Fara Cornejo RN Main Office [address] [address] [place] [address] 01/06/2019 09:45:38 01/20/2019 08:54:26 [id number] Jason Irizarry MD Main Office [address] [address] [place] [address] 01/16/2020 10:13:56 01/16/2020 11:50:06 Adult health examination 700947689 Z00.00 Essential hypertension 11947941 I10 Hyperlipidemia 32201079 E78.5 Fatigue 66229923 R53.83 Diabetic p eripheral neuropathy 159859211 E11.40 Spinal emile nosis of lumbar region 32979516 M48.061 Obstructiv e sleep apnea syndrome 15351666 G47.33 Body mass index 30+ - obesity 538002515 E66.01 Z68.35 [id number] Fara Cornejo RN Main Office [address] [address] [place] [address] 03/22/2020 08:51:20 04/10/2020 14:58:58 [id number] Cora Lara PA-C Main Office [address] [address] [place] [address] 10/11/2020 10:08:45 10/11/2020 11:24:52 Pre-surgery evaluation 051188695 Z01.818 Cataract 851527885 H25.0 13 Essential hypertension 72366162 I10 Hyperlipidemia 43000658 E78.5 Diabetic p eripheral neuropathy 988715096 E11.40 Spinal emile nosis of lumbar region 38871118 M48.061 Obstructiv e sleep apnea syndrome 79722336 G47.33 Body mass index 40+ - severely obese 837315853 E66.01 Z68.41 Severe dry skin 95669564 2 L85.3 [id number] Cora Lara PA-C Main Office [address] [facility][1] [address] [place] [address] 01/16/2021 09:44:41 01/16/2021 11:13:19 Adult health examination 410469155 Z00.00 Essential hypertension 68024702 I10 Hyperlipidemia 18808854 E78.5 Diabetic p eripheral neuropathy 603628761 E11.40 Spinal emile nosis of lumbar region 29165614 M48.061 Obstructiv e sleep apnea syndrome 72115164 G47.33 Body mass index 40+ - severely obese 856268468 E66.01 Z68.41 Varicella vaccination 68 883438 Z23 Screening for malignant neoplasm of breast 355152477 Z12.39 Depressive disorder 3548 9007 F32.0 Severe dry skin 15418294 2 L85.3 [id number] Cora Lara PA-C Main Office [address] [address] [place] [address] 07/04/2021 09:43:36 07/04/2021 10:58:22 Pre-surgery evaluation 889276070 Z01.818 Pain of ri ght shoulder joint 4429007790 9403579 M25.511 Essential hypertension 28044260 I10 Depressive disorder 3548 9007 F32.0 Diabetic p eripheral neuropathy 627549580 E11.40 Obstructiv e sleep apnea syndrome 78809295 G47.33 Spinal emlie nosis of lumbar region 70857892 M48.061 Body mass index 40+ - severely obese 174097933 E66.01 Z68.41 Psoriatic arthritis 1563 30161 L40.50 [id number] Cora Lara PA-C Main Office [address] [address] [place] [address] 10/09/2021 08:17:22 10/09/2021 09:37:27 Essential hypertension 14866269 I10 Hyperlipidemia 88025798 E78.5 Diabetic p eripheral neuropathy 577645621 E11.40 Pain of ri ght shoulder joint 1287784572 8827344 M25.511 [id number] RACHELL Chester [facility] [address] [address] [place] [address] 02/19/2022 12:49:57 02/19/2022 14:04:56 COVID-19 791078332 U07.1 Asthma 060311960 J45.90 9 Essential hypertension 96572857 I10 [id number] RACHELL Chester Main Office [address] [place] [address] 02/25/2022 08:28:51 02/25/2022 09:10:09 COVID-19 298173086 U07.1 Pneumonitis 713085632 J1 8.9 Diabetic p eripheral neuropathy 950033252 E11.40 Essential hypertension 53662018 I10 Obstructiv e sleep apnea of adult 0450171773 103 G47.33 [id number] Cora Lara PA-C Main Office [address] [place] [address] 03/13/2022 13:02:22 03/13/2022 14:28:25 Adult health examination 012121909 Z00.00 Asthma 517116173 J45.90 9 Chronic pain syndrome 37 5712889 G89.4 Diabetic p eripheral neuropathy 437062273 E11.40 Hyperlipidemia 83872022 E78.5 Obstructiv e sleep apnea syndrome 32117741 G47.33 Psoriatic arthritis 1563 40661 L40.50 Vitamin D deficiency 347 96793 E55.9 Spinal emile nosis of lumbar region 16038437 M48.061 Body mass index 40+ - severely obese 096686677 E66.01 Z68.41 Screening for malignant neoplasm of colon 764117408 Z12.11 Screening for malignant neoplasm of breast 502582993 Z12.39 Iron defic iency anemia 64584884 D50.9 Hypertensi ve renal disease 26151490 I12.9 Chronic ki dney disease stage 2 708368045 N18.2 Depressive disorder 3548 9007 F32.0 Vitamin B1 2 deficiency (non anemic) 05609573 E53.8 [id number] Cora Lara PA-C Main Office [address] [place] [address] 08/06/2022 13:00:34 08/06/2022 14:24:14 Diabetic peripheral neuropathy 054051485 E11.40 Gastroesop hageal reflux disease 662203518 K21.9 Chronic ki dney disease stage 2 410997584 N18.2 Hypertensi ve renal disease 13192371 I12.9 Psoriatic arthritis 1563 61689 L40.50 Iron defic iency anemia 48530844 D50.9 Spinal emile nosis of lumbar region 82421179 M48.061 [id number] [facility] [address] [facility]1] [address] [place] [address] 12/08/2022 09:53:06 12/08/2022 11:34:13 Needs influenza immunization 551052672 Z23 Spinal emile nosis of lumbar region 45055322 M48.061 Chronic ki dney disease stage 2 197198679 N18.2 Hypertensi ve renal disease 25544201 I12.9 Gastroesop hageal reflux disease 523139807 K21.9 Constipation 93856501 K5 9.00 Iron defic iency anemia 21107942 D50.9 Red left eye 9724802987 5347947 H57.89 [id number] [facility] Main Office [address] [address] [place] [address] 01/12/2023 10:06:53 01/12/2023 12:36:20 Hypertensive renal disease 51076832 I12.9 Diabetic p eripheral neuropathy 002842964 E11.40 Chronic pain syndrome 37 6820874 G89.4 Psoriatic arthritis 1563 66646 L40.50 Obstructiv e sleep apnea syndrome 14737043 G47.33 Spinal emile nosis of lumbar region 25390929 M48.061 Leukocytosis 354873958 D 72.829 Dry eyes 309664805 H04.1 23 Depressive disorder 3548 9007 F32.0 Chronic ki dney disease stage 2 118932677 N18.2 [id number] JEANMARIE KOWALSKI Main Office [address] [facility][1] [address] [place] [address] 02/20/2023 10:02:09 02/20/2023 10:23:15 Upper respiratory infection 90054603 J06.9 [id number] Meme Fernandez Main Office [address] [address] [place] [address] 04/13/2023 09:40:46 04/13/2023 11:19:11 Adult health examination 935683368 Z00.00 Venereal d isease screening 718636465 Z11.3 Z72.89 F03.90 Mild memor y disturbance 925749798 R41.3 Arthritis of first carpometacarpal joint of right hand 6923593638 120506 M13.841 Hypertensi ve renal disease 45910775 I12.9 Diabetic p eripheral neuropathy 623233839 E11.40 Iron defic iency anemia 31812712 D50.9 Bone density finding 385 399013 M85.89 Body mass index 40+ - severely obese 095178189 E66.01 Z68.41 Chronic ki dney disease stage 2 613917181 N18.2 Mild major depression, single episode 09126548 F32.0 [id number] Cora Lara PA-C Main Office [address] [place] [address] 05/11/2023 10:49:57 05/11/2023 12:07:58 Mild memory disturbance 705318283 R41.3 Psoriatic arthritis 1563 32501 L40.50 Spasm of back muscles 20 4194984 M62.830 Spinal emile nosis of lumbar region 71076214 M48.061 [id number] Cora Lara PA-C Main Office [address] [place] [address] 07/09/2023 10:37:44 07/09/2023 12:19:17 Mild memory disturbance 617731623 R41.3 Diabetic p eripheral neuropathy 314906105 E11.40 Psoriatic arthritis 1563 27271 L40.50 Spasm of back muscles 20 8170009 M62.830 Spinal emile nosis of lumbar region 01921962 M48.061 [id number] Cora Lara PA-C Main Office [address] [place] [address] 08/17/2023 13:47:25 08/17/2023 15:13:42 Mild memory disturbance 228430496 R41.3 Diabetic p eripheral neuropathy 433954818 E11.40 Spinal emile nosis of lumbar region 88593041 M48.061 Hyperlipidemia 36479091 E78.5 [id number] [facility] [address] [place] [address] 11/10/2023 14:23:35 11/11/2023 10:02:02 Obstructive sleep apnea syndrome 00226308 G47.33 Mild neuro cognitive disorder 187409527 G31.84 Diabetic p eripheral neuropathy 642480718 E11.40 Spinal emile nosis of lumbar region 56250789 M48.061 Psoriatic arthritis 1563 91996 L40.50 Mild major depression, single episode 85124860 F32.0 [id number] Cora Lara PA-C Main Office [address] [facility] [address] [facility] [place] [address] 11/23/2023 10:10:41 11/23/2023 11:28:04 Diabetic peripheral neuropathy 912127687 E11.40 Asthma 853556256 J45.90 9 Gastroesop hageal reflux disease 746021495 K21.9 Mild neuro cognitive disorder 457658935 G31.84 Spinal emile nosis of lumbar region 05824964 M48.061 Hyperlipidemia 44109495 E78.5 Health Concerns Section Related Observation LastModified by Organization Detai ls LastModified Time None Recorded Concern Status LastModified by Organization Details LastModified Time None Recorded Advance Directives Directive Y: HCP Payers Encounter Date Sequence Insurance Name Policy Number Policy Wilson Covered Member ID Wilson Member ID Guarantor Name 05/11/2023 1 [place] [employer] [place] Fara Crandall Parent [id number] Fara J Parent 07/09/2023 2 [place] [id number] Fara J Parent [id number] Fara J Parent 07/09/2023 1 [place] Fara J Parent [id number] Fara J Parent 08/17/2023 2 [place] [id number] Fara J Parent [id number] Fara J Parent 08/17/2023 1 [place] Fara J Parent [id number] Fara J Parent 11/10/2023 2 [place] [id number] Fara J Parent [id number] Fara J Parent 11/10/2023 1 [place] Fara Crandall Parent [id number] Fara Crandall Parent 11/23/2023 2 [place] [id number] Fara Crandall Parent [id number] Fara Crandall Parent 11/23/2023 1 [place] Fara Crandall Parent [id number] Fara Crandall Parent Notes Date Note Type Note Provider Name and Address Organization Details Recorded Time 05/11/2023 text/html here for f/u poo r memoryreviewed labs & mri c pthas not heard from memory d/o clinic yet - provided pt c phone # also, her back pain (and pain in general) is acting uppending see specialist in [place] - provided pt c phone #she requested add'l m relaxerspending see ATC tomorrow - considering begin enbrel Cora Lara PA-C [address] [address], [place], [address], [facility] 05/12/2023 11:37:25 07/09/2023 text/html here for f/u visitunfortunately has not seen neuropsych yet, and didn't see neurosurgeon either - but pt stated she rec'd a call from him (no note to review) to see local neurologist reviewed past several months of labs - overdue for a1c Cora Lara PA-C [address] [address], [place], [address], [facility] 07/09/2023 12:33:04 08/17/2023 text/html here for f/u mul tiple thingsseen by pmr - no note to review - had xray, ? maurilio injxn next blems6cpt better/lower, tolerating ariceptreviewed recent labs - a1c stable at 6.9 Cora Lara PA-C [address] [address], [place], [address], [facility] 08/17/2023 15:09:15 11/10/2023 text/html visit to jordan licona recent geriatric and neuropsych consult notes - appreciate their input - unsure if they were aware that pt had tried aricept back in June - she had an increase in 6cit score and relayed + fh dementia - appears she did not refill med agree c above consultants - wonder if alprazolam and / or amitriptyline is complicating her memory issues - they have been prescribed by her psychiatrist x several years - encouraged her to f/u c him, and to slowly taper the dose to help prevent withdrawal also, pt seen by pmr - rec PT - if no better than consider mri - also rec low dose percocet to be used sparingly Cora Lara PA-C [address] [address], [place], [address], [facility] 11/10/2023 20:49:22 11/23/2023 text/html Diabetes F/URepo rted bypatient.Context:seein g eye doctor regularly; checking feet regularly Associated Symptoms:no weight gain; no weight loss; no confusion; no increased appetite; no increased urination; no blurred vision; no numbness of feetHypertension F/UReported bypatient.Associated Symptoms:no dizziness; no lightheadedness; no chest pain; no shortness of breath; no palpitations; no edema; no calf pain with exertion Lifestyle:regular exercise; limiting/avoiding salt Medications:taking medications as directed; no side effects from medication Cora Lara PA-C [address] [address], [place], [address], [facility] 11/23/2023 21:25:14 OBGyn Episode No OBEpisode recorded.
--- OUTSIDE RECORDS SUMMARY | 2024-01-27 01:43 | XMS_ITS | Clinical Summary ---
Author Organization Unknown Care Team Providers Care Help Desk Engineer Name Role Phone MINI BUCIO, TA Unavailable Unavailable EDEL PT, GUANACO Unavailable Unavailable SPAFFORD OT, VALERIA Unavailable Unavailable SUSAN RN, MURIEL Unavailable Unavailable Payers Payer Name Policy Type Policy Number Effective Date Expira tion Date MEDICARE.NGS.PDGM [id number] Problems Condition Name Condition Details Condition Category Status Onset Date Resolution Date Last Treatment Date Treating Clinician Comments MECHANICAL LOOSENING OF OTH INTERNAL PROSTHETIC JOINT, SUBS Active 03-20 00:00: 00 PRESENCE OF LEFT ARTIFICIAL SHOULDER JOINT Active 03-20 00:00: 00 TYPE 2 DIABETES MELLITUS WITHOUT COMPLICATION S Active 02-16 00:00: 00 ESSENTIAL (PRIMARY) HYPERTENSION Active 02-16 00:00: 00 MAJOR DEPRESSIVE DISORDER, SINGLE EPISODE, UNSPECIFIED Active 02-16 00:00: 00 Allergies, Adverse Reactions, Alerts Allergy Name Allergy Type Status Severity Reaction(s) Onset Date Inactive Date Treating Clinician Comments NO KNOWN ALLERGIES Propensity to adverse reactions Active 03-22 19:55: 44 Medications Ordered Medication Name Filled Medication Name Start Date Stop Date Current Medication? Ordering Clinician Indication Dosage Frequency Signature (SIG) Comments Components oxycodone 5 mg tablet 03-14 00:00: 00 Yes [id number] FOR PAIN Per instruc tions EVERY 4 HOURS DIRECTED NEEDED DAILY Per instructio ns EVERY 4 HOURS DIRECTED NEEDED DAILY (route: oral) Med Classific ation: Analgesic , Anti-infl ammatory or Antipyret ic DOK 100 mg capsule 03-14 00:00: 00 Yes [id number] Per instruc tions UP TO TWICE DAILY DIRECTED NEEDED Per instructio ns UP TO TWICE DAILY DIRECTED NEEDED (route: oral) Med Classific ation: Gastroint estinal Therapy Agents acetaminoph en 500 mg tablet 03-14 00:00: 00 Yes [id number] FOR PAIN Per instruc tions EVERY 8 HOURS Per instructio ns EVERY 8 HOURS (route: oral) Med Classific ation: Analgesic , Anti-infl ammatory or Antipyret ic aspirin 325 mg tablet 03-14 00:00: 00 Yes [id number] Per instruc tions DAILY FOR 14 DAYS BEGINNING THE DAY Per instructio ns DAILY FOR 14 DAYS BEGINNING THE DAY (route: oral) Med Classific ation: Analgesic , Anti-infl ammatory or Antipyret ic alprazolam 0.25 mg tablet 2019-02 00:00: 00 Yes [id number] Per instruc tions EVERY 48 HOURS Per instructio ns EVERY 48 HOURS (route: oral) Med Classific ation: Central Nervous System Agents gabapentin 300 mg capsule 2019-02 00:00: 00 Yes [id number] Per instruc tions THREE TIMES A DAY Per instructio ns THREE TIMES A DAY (route: oral) Med Classific ation: Central Nervous System Agents lisinopril 10 mg tablet 03-17 00:00: 00 Yes [id number] Per instruc tions EVERY DAY Per instructio ns EVERY DAY (route: oral) Med Classific ation: Cardiovas cular Therapy Agents naproxen 500 mg tablet 2019-02 00:00: 00 03-22 00:00 :00 No [id number] Per instruc tions TWO TIMES A DAY Per instructio ns TWO TIMES A DAY (route: oral) Med Classific ation: Analgesic , Anti-infl ammatory or Antipyret ic amitriptyli ne 100 mg tablet 2019-02 00:00: 00 Yes [id number] Per instruc tions EVERY DAY Per instructio ns EVERY DAY (route: oral) Med Classific ation: Central Nervous System Agents cephalexin 500 mg tablet 03-21 00:00: 00 Yes [id number] 1 tablet 4 TIMES DAILY 1 tablet 4 TIMES DAILY (route: oral) Med Classific ation: Anti-Infe ctive Agents cholecalcif williams (vitamin D3) 25 mcg (1,000 unit) capsule 03-21 00:00: 00 Yes [id number] 1 capsule DAILY 1 capsule DAILY (route: oral) Med Classific ation: Electroly te Balance-N utritiona l Products multivitami n tablet 03-21 00:00: 00 Yes [id number] 1 tablet DAILY 1 tablet DAILY (route: oral) Med Classific ation: Electroly te Balance-N utritiona l Products travoprost 0.004 % eye drops 03-21 00:00: 00 Yes [id number] 1 drops DAILY 1 drops DAILY (route: ophthalmic (eye)) Med Classific ation: Ophthalmi c Agents Vitamin D3 25 mcg (1,000 unit) capsule 03-21 00:00: 00 Yes [id number] 1 capsule DAILY 1 capsule DAILY (route: oral) Med Classific ation: Electroly te Balance-N utritiona l Products Vital Signs Vital Name Observation Time Observation Value Commen ts Temperature 2020-04-09 10:03:46.000 97.2 [degF] Temperature 2020-04-05 10:30:40.000 97.3 [degF] Temperature 2020-04-03 15:31:09.000 97.4 [degF] Temperature 2020-03-27 14:02:26.000 97.8 [degF] Temperature 2020-03-26 10:19:52.000 97.2 [degF] Temperature 2020-03-22 10:50:45.000 98.4 [degF] Height 2020-03-22 10:51:41.000 63 [in_us] Pulse 2020-04-09 10:04:03.000 95 /min Pulse 2020-04-05 10:30:52.000 78 /min Pulse 2020-04-03 15:31:23.000 70 /min Pulse 2020-03-27 14:02:37.000 88 /min Pulse 2020-03-26 10:20:15.000 97 /min Pulse 2020-03-22 10:56:05.000 94 /min O2 Saturation (%) 2020-04-09 10:04:18.000 99 % O2 Saturation (%) 2020-04-05 10:31:06.000 98 % O2 Saturation (%) 2020-04-03 15:31:55.000 98 % O2 Saturation (%) 2020-03-27 14:02:47.000 98 % O2 Saturation (%) 2020-03-26 10:20:03.000 99 % Respirations 2020-04-09 10:04:09.000 18 /min Respirations 2020-04-05 10:30:58.000 18 /min Respirations 2020-04-03 15:31:30.000 18 /min Respirations 2020-03-27 14:02:19.000 18 /min Respirations 2020-03-26 10:19:26.000 18 /min Respirations 2020-03-22 10:52:52.000 18 /min Weight (lbs) 2020-03-22 10:51:52.000 217 [lb_av] Systolic Blood Pressure 2020-04-09 10:09:53.000 120 mm [Hg] Systolic Blood Pressure 2020-04-05 10:34:10.000 114 mm [Hg] Systolic Blood Pressure 2020-04-03 15:31:43.000 128 mm [Hg] Systolic Blood Pressure 2020-03-27 13:56:56.000 130 mm [Hg] Systolic Blood Pressure 2020-03-26 10:21:31.000 134 mm [Hg] Systolic Blood Pressure 2020-03-22 10:54:55.000 120 mm [Hg] Diastolic Blood Pressure 2020-04-09 10:09:53.000 68 mm [Hg] Diastolic Blood Pressure 2020-04-05 10:34:10.000 74 mm [Hg] Diastolic Blood Pressure 2020-04-03 15:31:43.000 80 mm [Hg] Diastolic Blood Pressure 2020-03-27 13:56:56.000 80 mm [Hg] Diastolic Blood Pressure 2020-03-26 10:21:31.000 80 mm [Hg] Diastolic Blood Pressure 2020-03-22 10:54:55.000 66 mm [Hg] Plan of Treatment Planned Activity Planned Date Details Comments Future Scheduled Test SKILLED NU RSE TO ASSESS, EVALUATE, AND DEVELOP AN INDIVIDUALIZED PLAN OF CARE. AGENCY MAY ACCEPT ORDERS FROM CONSULTING PHYSICIANS DR STYLES. TO OBSERVE/ASSESS RISK FOR FALLS AND INSTRUCT IN FALL PREVENTION, HOME SAFETY, MEDICATION MANAGEMENT, INFECTION PREVENTION, AND NUTRITION MANAGEMENT. SN MAY PERFORM O2 SATURATION LEVEL ON ADMISSION AND PRN FOR SOB TO ASSESS PATIENT, WITH NOTIFICATION TO THE PHYSICIAN IF SATURATION IS 90% IN THE ABSENCE OF MORE SPECIFIC PARAMETERS FROM THE PHYSICIAN. AGENCY MAY PERFORM A RESUMPTION OF CARE VISIT FOLLOWING ANY HOSPITAL ADMISSION. ALL DISCIPLINES (EXCEPT [facility]) MAY PROVIDE TELEHEALTH PHONE/REMOTE/VIRTUAL VISITS IN LIEU OF AN IN-PERSON VISIT THAT DOES NOT REQUIRE HANDS ON OR IN PERSON ASSESSMENT WHEN AN IN-PERSON VISIT IS NOT POSSIBLE DUE TO THE PUBLIC HEALTH EMERGENCY RELATED TO THE COVID-19 PANDEMIC. SKILLED NURSE TO INSTRUCT PATIENT / CAREGIVER ON DISEASE PROCESS, SELF MANAGEMENT, SIGNS AND SYMPTOMS TO REPORT TO SN/PHYSICIAN, RELATED TO: L SHOULDER ARTHROPLASTY. [code = SKILLED NURSE TO ASSESS, EVALUATE, AND DEVELOP AN INDIVIDUALIZED PLAN OF CARE. AGENCY MAY ACCEPT ORDERS FROM CONSULTING PHYSICIANS DR STYLES. SN TO OBSERVE/ASSESS RISK FOR FALLS AND INSTRUCT IN FALL PREVENTION, HOME SAFETY, MEDICATION MANAGEMENT, INFECTION PREVENTION, AND NUTRITION MANAGEMENT. SN MAY PERFORM O2 SATURATION LEVEL ON ADMISSION AND PRN FOR SOB TO ASSESS PATIENT, WITH NOTIFICATION TO THE PHYSICIAN IF SATURATION IS 90% IN THE ABSENCE OF MORE SPECIFIC PARAMETERS FROM THE PHYSICIAN. AGENCY MAY PERFORM A RESUMPTION OF CARE VISIT FOLLOWING ANY HOSPITAL ADMISSION. ALL DISCIPLINES (EXCEPT [facility]) MAY PROVIDE TELEHEALTH PHONE/REMOTE/VIRTUAL VISITS IN LIEU OF AN IN-PERSON VISIT THAT DOES NOT REQUIRE HANDS ON OR IN PERSON ASSESSMENT WHEN AN IN-PERSON VISIT IS NOT POSSIBLE DUE TO THE PUBLIC HEALTH EMERGENCY RELATED TO THE COVID-19 PANDEMIC. SKILLED NURSE TO INSTRUCT PATIENT / CAREGIVER ON DISEASE PROCESS, SELF MANAGEMENT, SIGNS AND SYMPTOMS TO REPORT TO SN/PHYSICIAN, RELATED TO: L SHOULDER ARTHROPLASTY. ] Future Scheduled Test MEDICATION MANAGEMENT; SKILLED NURSE TO REVIEW MEDICATIONS FOR INTERACTIONS, EFFECTIVENESS OF DRUG THERAPY, AND SIGNS/SYMPTOMS OF ADVERSE REACTIONS. MAY INSTRUCT AND REINFORCE MEDICATION TEACHING RELATED TO THE USE OF MEDICATIONS, DOSAGE, FREQUENCY, PURPOSE, SIDE EFFECTS, AND TO REPORT COMPLICATIONS. [code = MEDICATION MANAGEMENT; SKILLED NURSE TO REVIEW MEDICATIONS FOR INTERACTIONS, EFFECTIVENESS OF DRUG THERAPY, AND SIGNS/SYMPTOMS OF ADVERSE REACTIONS. MAY INSTRUCT AND REINFORCE MEDICATION TEACHING RELATED TO THE USE OF MEDICATIONS, DOSAGE, FREQUENCY, PURPOSE, SIDE EFFECTS, AND TO REPORT COMPLICATIONS.] Future Scheduled Test PAIN MANAG EMENT; SKILLED NURSE TO OBSERVE, ASSESS, AND PROVIDE EDUCATION ON PAIN MANAGEMENT TECHNIQUES. [code = PAIN MANAGEMENT; SKILLED NURSE TO OBSERVE, ASSESS, AND PROVIDE EDUCATION ON PAIN MANAGEMENT TECHNIQUES.] Future Scheduled Test FALL REDUC TION MANAGEMENT; NURSING TO PROVIDE SKILLED ASSESSMENT, EDUCATION, AND INTERVENTION TO IDENTIFY FALL RISK FACTORS SUCH MEDICATIONS THAT MAY CAUSE DIZZINESS, CHRONIC DISEASES, PSYCHOLOGICAL FACTORS, AND EMPOWER/EDUCATE PATIENT/CAREGIVER TO MINIMIZE FALL RISK. [code = FALL REDUCTION MANAGEMENT; NURSING TO PROVIDE SKILLED ASSESSMENT, EDUCATION, AND INTERVENTION TO IDENTIFY FALL RISK FACTORS SUCH MEDICATIONS THAT MAY CAUSE DIZZINESS, CHRONIC DISEASES, PSYCHOLOGICAL FACTORS, AND EMPOWER/EDUCATE PATIENT/CAREGIVER TO MINIMIZE FALL RISK.] Future Scheduled Test SKILLED NU RSE PERFORMED/TAUGHT INCISION CARE TO L SHOULDER: MONITORED FOR SIGNS AND SYMPTOMS OF INFECTION. [code = SKILLED NURSE PERFORMED/TAUGHT INCISION CARE TO L SHOULDER: MONITORED FOR SIGNS AND SYMPTOMS OF INFECTION. ] Future Scheduled Test PT EVALUAT ION PERFORMED. NO ADDITIONAL VISITS REQUIRED. PROVIDED SKILLED INTERVENTION INCLUDING STRENGTH, MOBILITY AND HOME SAFETY ASSESSMENT. [code = PT EVALUATION PERFORMED. NO ADDITIONAL VISITS REQUIRED. PROVIDED SKILLED INTERVENTION INCLUDING STRENGTH, MOBILITY AND HOME SAFETY ASSESSMENT. ] Future Scheduled Test AGENCY MAY PERFORM A RESUMPTION OF CARE VISIT FOLLOWING ANY HOSPITAL ADMISSION. ALL DISCIPLINES (EXCEPT [facility]) MAY PROVIDE TELEHEALTH PHONE/REMOTE/VIRTUAL VISITS IN LIEU OF AN IN-PERSON VISIT THAT DOES NOT REQUIRE HANDS ON OR IN PERSON ASSESSMENT WHEN AN IN-PERSON VISIT IS NOT POSSIBLE DUE TO THE PUBLIC HEALTH EMERGENCY RELATED TO THE COVID-19 PANDEMIC. OCCUPATIONAL THERAPY TO EVALUATE, ASSESS, AND MONITOR, PROVIDE SKILLED THERAPEUTIC INTERVENTION, ACTIVITY, EDUCATION, AND TRAINING TO ADDRESS; S/P L SH REPLACEMENT REVISION, FALL PREVENTION, DECLINE IN ADLS AND IADLS. BATHING/SHOWERING (OT) HEALTH MANAGEMENT- PHYSICAL ACTIVITY (OT) HOME ESTABLISHMENT AND HOME MAINTENANCE (OT) PAIN MANAGEMENT (OT) SURGICAL AFTERCARE EDUCATION (OT) SHOULDER REPLACEMENT EDUCATION (OT) [code = AGENCY MAY PERFORM A RESUMPTION OF CARE VISIT FOLLOWING ANY HOSPITAL ADMISSION. ALL DISCIPLINES (EXCEPT [facility]) MAY PROVIDE TELEHEALTH PHONE/REMOTE/VIRTUAL VISITS IN LIEU OF AN IN-PERSON VISIT THAT DOES NOT REQUIRE HANDS ON OR IN PERSON ASSESSMENT WHEN AN IN-PERSON VISIT IS NOT POSSIBLE DUE TO THE PUBLIC HEALTH EMERGENCY RELATED TO THE COVID-19 PANDEMIC. OCCUPATIONAL THERAPY TO EVALUATE, ASSESS, AND MONITOR, PROVIDE SKILLED THERAPEUTIC INTERVENTION, ACTIVITY, EDUCATION, AND TRAINING TO ADDRESS; S/P L SH REPLACEMENT REVISION, FALL PREVENTION, DECLINE IN ADLS AND IADLS. BATHING/SHOWERING (OT) HEALTH MANAGEMENT- PHYSICAL ACTIVITY (OT) HOME ESTABLISHMENT AND HOME MAINTENANCE (OT) PAIN MANAGEMENT (OT) SURGICAL AFTERCARE EDUCATION (OT) SHOULDER REPLACEMENT EDUCATION (OT)] Goal 2020-04-09 Patient Goal - H AVE HER SHOULDER GET BETTER Goal Provider Goal - A PLAN OF CARE WILL BE ESTABLISHED THAT MEETS THE PATIENT'S NURSING NEEDS BY 05/20/2020. PATIENT WILL DEMONSTRATE OXYGEN SATURATION WITH NORMAL LIMITS OR TO PATIENT'S OPTIMAL LEVEL ESTABLISHED BY THE PHYSICIAN THROUGHOUT CARE Goal Provider Goal - PATIENT/CAREGIVER TO VERBALIZE, AND CONSISTENTLY DEMONSTRATE EFFECTIVE, SAFE MANAGEMENT OF MEDICATION INCLUDING KNOWLEDGE OF EFFECTIVENESS, POTENTIAL SIDE EFFECTS AND DRUG REACTIONS AND WHEN TO CONTACT THE APPROPRIATE CARE PROVIDER. PATIENT/CAREGIVER WILL BE ABLE TO VERBALIZE UNDERSTANDING OF MEDICATION REGIMEN AND ACCURATELY TAKE MEDICATIONS PRESCRIBED WITHOUT ADVERSE EFFECTS BY 05/20/2020. Goal Provider Goal - PATIENT / CAREGIVER WILL VERBALIZE / DEMONSTRATE UNDERSTANDING OF PAIN CONTROL MEASURES BY 05/20/2020. Goal Provider Goal - PATIENT/CAREGIVER ABLE TO IDENTIFY FALL RISK FACTORS AND IMPLEMENT STRATEGIES TO MINIMIZE FALL RISK. PATIENT/CAREGIVER WILL VERBALIZE/DEMONSTRATE AN ABILITY TO ADHERE TO FALL REDUCTION SELF MANAGEMENT AND LIFE-STYLE CHANGES AT DISCHARGE. PERSONAL GOAL(S) STATED BY PATIENT/CAREGIVER WILL BE MET BY 05/20/2020. Goal Provider Goal - PATIENT / CAREGIVER WILL VERBALIZE / DEMONSTRATE ABILITY TO PERFORM WOUND CARE. WOUND STATUS WILL IMPROVE EVIDENCED BY A DECREASE IN SIZE, DRAINAGE, ABSENCE OF INFECTION, AND DECREASED PAIN BY 05/20/2020. Goal Provider Goal - Goal Provider Goal - OT STG: PATIENT WILL DEMONSTRATE IMPROVED BATHING WITH SBA AND CUES WITHIN 2 WEEKS. OT LTG: PATIENT WILL DEMONSTRATE IMPROVED ABILITY TO PERFORM BATHING/SHOWERING FROM MIN ASSIST TO INDEPENDENT WITHIN 8 WEEKS. OT STG: PATIENT WILL DEMONSTRATE IMPROVED SHOWER TRANSFERS WITH SBA WITHIN 2 WEEKS. OT LTG: PATIENT WILL DEMONSTRATE IMPROVED ABILITY TO PERFORM BATH/SHOWER TRANSFER FROM CGA TO INDEPENDENT WITHIN 8 WEEKS. OT LTG: PATIENT WILL DEMONSTRATE THE ABILITY TO COMPLETE A THERAPEUTIC TASK ORIENTED PROGRAM TO RESTORE PHYSICAL FUNCTION/HEALTH MANAGEMENT FROM UNABLE TO INDEPENDENT WITHIN 8 WEEKS. OT LTG: PATIENT WILL DEMONSTRATE THE ABILITY TO COMPLETE HOME ESTABLISHMENT/MANAGEMENT FROM MOD ASSIST TO INDEPENDENT WITHIN 8 WEEKS. PATIENT WILL VERBALIZE UNDERSTANDING OF PAIN MANAGEMENT TECHNIQUES BY DISCHARGE. OT GOAL: PATIENT/CAREGIVER WILL INCORPORATE SURGICAL AFTERCARE PATIENT EMPOWERMENT STRATEGIES INTO DAILY ROUTINE BY DISCHARGE OT GOAL: PATIENT/CAREGIVER WILL INCORPORATE SHOULDER REPLACEMENT PATIENT EMPOWERMENT STRATEGIES INTO DAILY ROUTINE BY DISCHARGE. Reason for Visit INDEPENDENT IN THE HOME Encounters Start Date/Time End Date/Time Encounter Type Admission Type Attending [facility] Care Department Encounter ID Discharge Date Discharge Status Discharge Condition Discharge Reason Percent Goals Met 2020-03-22 00:00:00 2020-04-09 00:00:00 Outpatient NEW ADMISSION [facility] [id number] 2020-04-09 00:00:00 DISCHARGE TO HOME OR SELF CARE INDEPENDEN T IN THE HOME HH ONLY - OUT PATIENT [id number]
--- OUTSIDE RECORDS SUMMARY | 2024-01-27 01:43 | XMS_ITS | Continuity of Care Document ---
Author Organization [facility] Address [address] [place] [address] Care Team Providers Care Flight Tower Dispatcher Name Role Phone JOEL DAO Byproducts Maker [phone] VALENTÍN MONTERO Psychiatrist KESHIA COOPER Surgery Consultant [place] LARA Primary Care Provider CORWIN DAVISON Byproducts Maker [phone] RANDI CAMARENA Neurophysiologist JASON ONEAL Pain Management DANIEL BENJAMIN Geriatric Medicine SHADI CARVALHO Neuropsychologist [phone] Assessment Encounter Date Assessment Date Assessment LastModified by Organization Details LastModified Time 11/10/2023 11/10/2023 This service was provided using telemedicine. Patient consented to telephone visit Patient was located in the [facility]. Provider was located in the office. No [...] Not available [email or web address] 2024 10:30A M Ky MURRY-C Not available Not available Not available Lab HbA1c (hemoglob in A1c), blood 2023 024 ANDREW [facility], [address], [place], [address], 11/14/2023 03:06:29 Referral psycholog ist referral 2023 024 [email or web address] Chris Parson PHD ([facility]), [address], [place], [address], 11/11/2023 10:02:02 Procedures None recorded. Surgeries None recorded. Imaging None recorded. Medication Orders None recorded. Patient TargetsNo targets recorded. Patient Instructions Encounter Date Encounter Id Patient Instructions Last Modified By Organization Details Last Modified Time 11/10/2023 [id number] Medications (OTC , herbal therapies, supplements) reviewed and reconciled with patient and or caregiver, including potential side effects, drug interactions, instructions, and the consequences of not taking medication. Reviewed potential barriers to medication adherence, such as side effects from medication or cost of medication. [email or web address] Not available 11/10/2023 16:08:31 Reason for Referral Psychologist Referral for Mi ld major depression, single episode Referring Physician: Ky Lara, Internal Medicine, Encounter Date: 11/10/2023 Problems Name Problem SNOMED Code Status Onset Date Resolution Date Notes Provider Name and Address Organization Details Recorded Time Electroc ardiogra m abnormal [id number] Completed 200708/30/2013 RECORDED 10/01/19 08 8:29AM BY MARLYS MILAN MA, ANNOTSILVER ON/ADDEN DUM MEDINA Rouse [facility] 6 10:51:32 Acute asthma 771646187 Completed 201208/30/2013 RECORDED 06/25/19 13 2:34PM BY MARLYS MILAN MA ANNOTSILVER ON/ADDEN DUM MEDINA Rouse [facility] 6 10:51:32 Acute bronchit is 02776664 Completed 200708/30/2013 RECORDED 10/01/19 08 8:29AM BY MARLYS MIALN MA, ANNOTSILVER ON/ADDEN DUM MEDINA Rouse [facility] 6 10:51:32 Acute sinusiti s 65671663 Completed 201208/30/2013 RECORDED 06/25/19 13 2:34PM BY MARLYS MILAN MA, MIGDALIA ON/ADDEN DUM MEDINA Rouse, [facility] 6 10:42:01 Asthma 925759688 Active Not Available [facility] 4 19:50:26 Intrinsi c asthma 932832187 Completed 201108/30/2013 RECORDED 09/04/19 12 12:56PM BY MARLYS MILAN MA, ANNOTSILVER ON/ADDEN DUM MEDINA Rouse, [facility] 6 10:51:32 Screenin g for malignan t neoplasm of breast Completed 201208/30/2013 RECORDED 09/21/19 13 12:45PM BY ARLIN LIGHT MA, ANNOTSILVER ON/ADDEN DUM MEDINA Rouse, [facility] 6 10:51:32 Cellulit is and abscess of face 529910418 Completed 200808/30/2013 RESOLVED DATE: 07/04/19 09; IMPRESSI ON: PT IS IMMUNE SUPPRESS ED WITH HUMIRA FOR RA, TREAT WITH LEVAQUIN ; RECORDED 07/04/19 09 9:11PM BY JORGE Rai NP, MIGDALIA ON/ADDEN DUM MEDINA Rouse, [facility] 6 10:51:32 Chronic pain syndrome 412432380 Active Not Available [facility] 4 19:50:26 Chronic pain syndrome 165376077 Completed 201208/30/2013 RECORDED 03/17/19 13 9:38AM BY MARLYS MILAN MA, ANNOTSILVER ON/ADDEN DUM MEDINA Rouse, [facility] 6 10:51:32 Screenin g for malignan t neoplasm of colon Completed 201108/30/2013 RECORDED 09/04/19 12 12:56PM BY MARLYS MILAN MA, ANNOTATI ON/ADDEN DUM MEDINA Rouse, [facility] 6 10:51:32 Cough 41591929 Completed 201208/30/2013 RECORDED 06/25/19 13 2:34PM BY MARLYS MILAN MA, ANNOTATI ON/ADDEN DUM MEDINA Rouse, [facility] 6 10:51:32 General symptom 492019538 Completed 201108/30/2013 STORY: SIGNIFIC ANT DECREASE IN EXERCISE TOLERANC E WITH TACHYCAR DEANNA.; RECORDED 09/04/19 12 12:56PM BY MARLYS MILAN MA, ANNOTATI ON/ADDEN DUM MEDINA Rouse, [facility] 6 10:51:32 Depressi ve disorder 11274581 Completed 02/26/2015 Meme miranda [facility] 4 15:15:46 Type 2 diabetes mellitus without complica tion 954654898 Completed 05/01/2017 MEDINA Rouse, [facility] 9 11:30:03 Diarrhea 24979567 Completed 201208/30/2013 IMPRESSI ON: RESOLVIN G PER PT. HAD A FORMED STOOL. SHE DID NOT DO THE STOOL TESTING AND WILL HOLD OFF SINCE DOES NOT HAVE LIQUID STOOL.; RECORDED 03/17/19 13 9:35AM BY MARLYS MILAN MA, ANNOTATI ON/ADDEN DUM MEDINA Rouse, [facility] 6 10:42:42 Dysphagi a 65521718 Completed 200708/30/2013 RESOLVED DATE: 01/20/20 08; RECORDED 01/20/20 08 4:23PM BY JORGE Rai NP, ANNOTATI ON/ADDEN DUM MEDINA Rouse, [facility] 6 10:51:32 Edema 619905465 Completed 201208/30/2013 RECORDED 09/21/19 13 12:45PM BY ARLIN LIGHT MA, ANNOTATI ON/ADDEN DUM MEDINA Rouse, [facility] 6 10:51:32 Long-ter m drug therapy Completed 201208/30/2013 RECORDED 05/19/19 13 12:57PM BY MARLYS MILAN MA, ANNOTSILVER ON/ADDEN DUM MEDINA Rouse, [facility] 6 10:51:32 Gastroes ophageal reflux disease 121734011 Active Not Available [facility] 4 19:50:26 Essentia l hyperten kris 91843853 Completed 03/15/2022 Ky Lara PA-C [address], [place], [address] , [facility] 3 10:04:39 Exophtha lmos 66075399 Completed 201108/30/2013 RECORDED 09/04/19 12 12:56PM BY MARLYS MILAN MA, ANNOTSILVER ON/ADDEN DUM MEDINA Rouse, [facility] 6 10:51:32 Influenz a vaccine needed [id number] 06 Completed 201208/30/2013 RECORDED 10/23/19 13 4:09PM BY AUDIE OLIVARES, OFFICE VISIT MEDINA Rouse, [facility] 6 10:51:32 Tobacco user 349393043 Completed 08/29/2015 MEDINA Rouse, [facility] 6 09:59:57 History of clinical finding in subject 007832396 Completed 01/29/2016 MEDINA Rouse, [facility] 6 10:42:37 Adult health examinat ion Completed 01/29/2016 MEDINA Rouse, [facility] 6 10:42:26 Follow-u p encounte r Completed 201308/30/2013 RECORDED 05/12/19 14 2:21PM BY ANAMARIA RIVERA MA, ANNOTATI ON/ADDEN DUM MEDINA Rouse, [facility] 6 10:51:32 Hyperlip idemia 47837565 Active Not Available [facility] 4 19:50:26 Immunosu ppressio n [id number] Completed 201108/30/2013 RECORDED 04/23/19 12 1:24PM BY ALBERTO HAMMONDS, MIGDALIA ON/ADDEN DUM MEDINA Rouse, [facility] 6 10:51:32 Kidney stone 44303363 Completed 201108/30/2013 RECORDED 09/04/19 12 12:56PM BY MARLYS MILAN MA, ANNOTATI ON/ADDEN DUM MEDINA Rouse, [facility] 6 10:51:32 Laborato ry procedur e performe d 010794746 Completed 201308/30/2013 RECORDED 05/12/19 14 2:21PM BY ANAMARIA RIVERA MA, MIGDALIA ON/ADDEN DUM MEDINA Rouse, [facility] 6 10:51:32 Leukocyt osis 319109079 Completed 201208/30/2013 RECORDED 09/21/19 13 12:45PM BY ARLIN LIGHT MA, ANNOTSILVER ON/ADDEN DUM MEDINA Rouse, [facility] 6 10:51:32 Spinal stenosis of lumbar region 97687086 Active Not Available [facility] 4 19:50:26 Lyme disease 34496947 Completed 201008/30/2013 RECORDED 02/18/19 11 1:17PM BY JASON IRIZARRY MD, ANNOTATI ON/ADDEN DUM MEDINA Rouse, [facility] 6 10:51:32 Malaise and fatigue 720853126 Completed 201208/30/2013 RECORDED 12/12/19 13 8:53AM BY MARLYS MILAN MA, ANNOTATI ON/ADDEN DUM MEDINA Rouse, [facility] 6 10:51:32 Renewal of prescrip tion Completed 201208/30/2013 RECORDED 05/19/19 13 12:57PM BY MARLYS MILAN MA, ANNOTATI ON/ADDEN DUM MEDINA Rouse, [facility] 6 10:51:32 Ulcerati ve rhinitis 01773361 Completed 200808/30/2013 DATE: 07/04/19 09; RECORDED 09/04/19 12 12:56PM BY MARLYS MILAN MA, ANNOTATI ON/ADDEN DUM MEDINA Rouse, [facility] 6 10:51:32 Obstruct kaye sleep apnea syndrome 87189514 Completed 06/18/2020 Ky Lara PA-C [address], [place], [address] , [facility] 1 11:29:15 Localize d, primary osteoart hritis of the shoulder region 575692481 Completed 03/15/2022 Ky Lara PA-C [address], [place], [address] , [facility] 3 10:06:07 Bursitis 66283223 Completed 201108/30/2013 RECORDED 09/04/19 12 12:56PM BY MARLYS MILAN MA, ANNOTATI ON/ADDEN DUM MEDINA Rouse, [facility] 6 10:51:32 Otitis media 58334574 Completed 200808/30/2013 RESOLVED DATE: 07/04/19 09; RECORDED 07/04/19 09 9:11PM BY JORGE Rai NP, MIGDALIA ON/ADDEN DUM MEDINA Rouse, [facility] 6 10:51:32 Knee pain Completed 200708/30/2013 RECORDED 10/01/19 08 8:30AM BY MARLYS MILAN MA, JUDYATI ON/ADDEN DUM Maritza Barragan MA null, [facility] 7 14:02:00 Peptic ulcer 27273003 Completed 201208/30/2013 RECORDED 03/11/19 13 1:05AM BY JORGE Rai NP, ANNOTATI ON/ADDEN DUM MEDINA Rouse, [facility] 6 10:51:32 Gastroin testinal obstruct ion 441457998 Completed 11/04/2016 Jason Irizarry MD [address] [address], [place], [address] , [facility] 7 08:33:12 Persiste nt insomnia 293160279 Active Not Available [facility] 4 19:50:26 Pre-surg asher samina on Completed 201208/30/2013 IMPRESSI ON: WILL NEED [...] 13 4:03PM BY MARLYS MILAN MA, ANNOTATI ON/ADDEN DUM MEDINA Rouse, [facility] 6 10:51:32 Psoriasi s 7510309 Completed 03/15/2022 Ky Lara PA-C [address], [place], [address] , [facility] 3 10:06:55 Urine finding 672882783 Completed 201208/30/2013 IMPRESSI ON: ADD CULTURE; RECORDED 09/21/19 13 12:45PM BY ARLIN LIGHT MA, ANNOTATI ON/ADDEN DUM MEDINA Rouse, [facility] 6 10:51:32 Acute respirat ory failure 35459116 Completed 201108/30/2013 RECORDED 09/04/19 12 12:56PM BY MARLYS MILAN MA, ANNOTATI ON/ADDEN DUM MEDINA Rouse, [facility] 6 10:51:32 Rheumato id arthriti s 63342012 Completed 11/04/2016 Jason Irizarry MD [address], [place], [address] , [facility] 7 08:33:58 Adult health examinat ion Completed 201108/30/2013 RECORDED 12/16/19 12 9:06AM BY MARLYS MILAN MA, ANNOTATI ON/ADDEN DUM MEDINA Rouse, [facility] 6 10:42:26 Morbid obesity 409928869 Active Not Available [facility] 4 19:50:26 Dyspnea 574110566 Completed 201208/30/2013 RECORDED 09/21/19 13 12:45PM BY ARLIN LIGHT MA, ANNOTATI ON/ADDEN DUM MEDINA Rouse, [facility] 6 10:51:32 Disorder of bursa of shoulder region 05536343 Completed 201208/30/2013 STORY: SHAYAN L. HAS BEEN FOLLOWED BY DR. RAMACHANDRAN FOR RHEUMATO LOGY. UNDERLYI NG DIAGNOSI S OF RA AND PSORIATI C ARTHRITI S. HAS BEEN ON HUMIRA; RECORDED 09/21/19 13 12:45PM BY ARLIN LIGHT MA, ANNOTSILVER ON/ADDEN DUM MEDINA Rouse, [facility] 6 10:51:32 Conducti on disorder of the heart 34986978 Active Not Available [facility] 4 19:50:26 Administ ration of diphther ia and tetanus vaccine Completed 201208/30/2013 RECORDED 05/19/19 13 12:57PM BY MARLYS MILAN MA, ANNOTSILVER ON/ADDEN DUM MEDINA Rouse, [facility] 6 10:51:32 Full thicknes s rotator cuff tear 573506671 Completed 201208/30/2013 RECORDED 09/21/19 13 12:45PM BY ARLIN LIGHT MA, MIGDALIA ON/ADDEN DUM MEDINA Rouse, [facility] 6 10:51:32 Tobacco dependen ce syndrome 64893732 Completed 201108/30/2013 RECORDED 12/16/19 12 9:07AM BY MARLYS MILAN MA, MIGDALIA ON/ADDEN DUM MEDINA Rouse, [facility] 6 10:51:32 Essentia l hyperten kris 62391683 Completed 201108/30/2013 RECORDED 09/04/19 12 12:56PM BY MARLYS MILAN MA, ANNOTATI ON/ADDEN DUM Ky Lara PA-C [address], [place], [address] , [facility] 3 10:04:39 Vitamin D deficien cy 68271870 Active Not Available [facility] 4 19:50:26 Electroc ardiogra m abnormal 734258963 Completed 200709/26/2013 RECORDED 10/01/19 08 8:29AM BY MARLYS MILAN MA, ANNOTATI ON/ADDEN DUM MEDINA Rouse, [facility] 6 10:51:32 Acute asthma 430954808 Completed 201209/26/2013 RECORDED 06/25/19 13 2:34PM BY MARLYS MILAN MA, ANNOTATI ON/ADDEN DUM MEDINA Rouse, [facility] 6 10:51:32 Acute bronchit is 41822687 Completed 200709/26/2013 RECORDED 10/01/19 08 8:29AM BY MARLYS MILAN MA, ANNOTATI ON/ADDEN DUM MEDINA Rouse, [facility] 6 10:51:32 Acute sinusiti s 49508358 Completed 201209/26/2013 RECORDED 06/25/19 13 2:34PM BY MARLYS MILAN MA, ANNOTATI ON/ADDEN DUM MEDINA Rouse, [facility] 6 10:42:01 Intrinsi c asthma 901723512 Completed 201109/26/2013 RECORDED 09/04/19 12 12:56PM BY MARLYS MILAN MA, ANNOTATI ON/ADDEN DUM MEDINA Rouse, [facility] 6 10:51:32 Screenin g for malignan t neoplasm of breast Completed 201209/26/2013 RECORDED 09/21/19 13 12:45PM BY ARLIN LIGHT MA, MIGDALIA ON/ADDEN DUM MEDINA Rouse, [facility] 6 10:51:32 Cellulit is and abscess of face 898368707 Completed 200809/26/2013 RESOLVED DATE: 07/04/19 09; IMPRESSI ON: PT IS IMMUNE SUPPRESS ED WITH HUMIRA FOR RA, TREAT WITH LEVAQUIN ; RECORDED 07/04/19 09 9:11PM BY JORGE Rai NP, MIGDALIA ON/ADDEN DUM MEDINA Rouse, [facility] 6 10:51:32 Screenin g for malignan t neoplasm of colon Completed 201109/26/2013 RECORDED 09/04/19 12 12:56PM BY MARLYS MILAN MA, MIGDALIA ON/ADDEN DUM MEDINA Rouse, [facility] 6 10:51:32 Cough 06716213 Completed 201209/26/2013 RECORDED 06/25/19 13 2:34PM BY MARLYS MILAN MA, MIGDALIA ON/ADDEN DUM MEDINA Rouse, [facility] 6 10:51:32 General symptom 412366886 Completed 201109/26/2013 STORY: SIGNIFIC ANT DECREASE IN EXERCISE TOLERANC E WITH TACHYCAR DEANNA.; RECORDED 09/04/19 12 12:56PM BY MARLYS MILAN MA, MIGDALIA ON/ADDEN DUM MEDINA Rouse, [facility] 6 10:51:32 Diarrhea 52657107 Completed 201209/26/2013 IMPRESSI ON: RESOLVIN G PER PT. HAD A FORMED STOOL. SHE DID NOT DO THE STOOL TESTING AND WILL HOLD OFF SINCE DOES NOT HAVE LIQUID STOOL.; RECORDED 03/17/19 13 9:35AM BY MARLYS MILAN MA, ANNOTSILVER ON/ADDEN DUM MEDINA Rouse, [facility] 6 10:42:42 Dysphagi a 34409901 Completed 200709/26/2013 RESOLVED DATE: 01/20/20 08; RECORDED 01/20/20 08 4:23PM BY JORGE Rai NP, ANNOTSILVER ON/ADDEN DUM MEDINA Rouse, [facility] 6 10:51:32 Edema 725749834 Completed 201209/26/2013 RECORDED 09/21/19 13 12:45PM BY ARLIN LIGHT MA, ANNOTSILVER ON/ADDEN DUM MEDINA Rouse, [facility] 6 10:51:32 Long-ter m drug therapy Completed 201209/26/2013 RECORDED 05/19/19 13 12:57PM BY MARLYS MILAN MA, MIGDALIA ON/ADDEN DUM MEDINA Rouse, [facility] 6 10:51:32 Exophtha lmos 07492090 Completed 201109/26/2013 RECORDED 09/04/19 12 12:56PM BY MARLYS MILAN MA, MIGDALIA ON/ADDEN DUM MEDINA Rouse, [facility] 6 10:51:32 Influenz a vaccine needed [id number] 06 Completed 201209/26/2013 RECORDED 10/23/19 13 4:09PM BY AUDIE OLIVARES, OFFICE VISIT MEDINA Rouse, [facility] 6 10:51:32 Follow-u p encounte r Completed 201309/26/2013 RECORDED 05/12/19 14 2:21PM BY ANAMARIA RIVERA MA, ANNOTATI ON/ADDEN DUM Marlys Genia-MEDINA Greene, [facility] 6 10:51:32 Immunosu ppressio n [id number] Completed 201109/26/2013 RECORDED 04/23/19 12 1:24PM BY ALBERTO HAMMONDS, ANNOTATI ON/ADDEN DUM Marlys Genia-MEDINA Greene, [facility] 6 10:51:32 Kidney stone 38299134 Completed 201109/26/2013 RECORDED 09/04/19 12 12:56PM BY MARLYS MILAN MA, ANNOTATI ON/ADDEN DUM Marlys Genia-MEDINA Greene, [facility] 6 10:51:32 Laborato ry procedur e performe d 902651229 Completed 201309/26/2013 RECORDED 05/12/19 14 2:21PM BY ANAMARIA RIVERA MA, ANNOTATI ON/ADDEN DUM Marlys GeniaMEDINA Telles, [facility] 6 10:51:32 Leukocyt osis 666587204 Completed 201209/26/2013 RECORDED 09/21/19 13 12:45PM BY ARLIN LIGHT MA, ANNOTATI ON/ADDEN DUM Marlys GeniaMEDINA Telles, [facility] 6 10:51:32 Lyme disease 84732621 Completed 201009/26/2013 RECORDED 02/18/19 11 1:17PM BY JASON IRIZARRY MD, ANNOTSILVER ON/ADDEN DUM Marlys MEDINA Levin, [facility] 6 10:51:32 Malaise and fatigue 421087185 Completed 201209/26/2013 RECORDED 12/12/19 13 8:53AM BY MARLYS MILAN MA, ANNOTATI ON/ADDEN DUM Marlys GeniaMEDINA Telles, [facility] 6 10:51:32 Renewal of prescrip tion Completed 201209/26/2013 RECORDED 05/19/19 13 12:57PM BY MARLYS MILAN MA, ANNOTATI ON/ADDEN DUM MEDINA Rouse, [facility] 6 10:51:32 Ulcerati ve rhinitis 88956741 Completed 200809/26/2013 DATE: 07/04/19 09; RECORDED 09/04/19 12 12:56PM BY MARLYS MILAN MA, ANNOTSILVER ON/ADDEN DUM MEDINA Rouse, [facility] 6 10:51:32 Bursitis 65293692 Completed 201109/26/2013 RECORDED 09/04/19 12 12:56PM BY MARLYS MILAN MA, ANNOTATI ON/ADDEN DUM MEDINA Rouse, [facility] 6 10:51:32 Otitis media 35455469 Completed 200809/26/2013 RESOLVED DATE: 07/04/19 09; RECORDED 07/04/19 09 9:11PM BY JORGE Rai NP, ANNOTSILVER ON/ADDEN DUM MEDINA Rouse, [facility] 6 10:51:32 Knee pain Completed 200709/26/2013 RECORDED 10/01/19 08 8:30AM BY MARLYS MILAN MA, ANNOTATI ON/ADDEN DUM Maritza miranda, [facility] 7 14:02:00 Peptic ulcer 23292469 Completed 201209/26/2013 RECORDED 03/11/19 13 1:05AM BY JORGE Rai NP, ANNOTATI ON/ADDEN DUM MEDINA Rouse, [facility] 6 10:51:32 Pre-surg asher samina on Completed [...] 13 4:03PM BY MARLYS MILAN MA, ANNOTATI ON/ADDEN DUM MEDINA Rouse, [facility] 6 10:51:32 Urine finding 340866083 Completed 201209/26/2013 IMPRESSI ON: ADD CULTURE; RECORDED 09/21/19 13 12:45PM BY ARLIN LIGHT MA, ANNOTATI ON/ADDEN DUM MEDINA Rouse, [facility] 6 10:51:32 Acute respirat ory failure 30833398 Completed 201109/26/2013 RECORDED 09/04/19 12 12:56PM BY MARLYS MILAN MA, ANNOTATI ON/ADDEN DUM [facility] 6 10:51:32 Dyspnea 310757062 Completed 201209/26/2013 RECORDED 09/21/19 13 12:45PM BY ARLIN LIGHT MA ANNOTATI ON/ADDEN DUM [facility] 6 10:51:32 Disorder of bursa of shoulder region 80484451 Completed 201209/26/2013 STORY: SHAYAN Javed HAS BEEN FOLLOWED BY DR. RAMACHANDRAN FOR RHEUMATO LOGY. UNDERLYI NG DIAGNOSI S OF RA AND PSORIATI C ARTHRITI S. HAS BEEN ON HUMIRA; RECORDED 09/21/19 13 12:45PM BY ARLIN LIGHT MA, ANNOTATI ON/ADDEN DUM MEDINA Rouse, [facility] 6 10:51:32 Administ ration of diphther ia and tetanus vaccine Completed 201209/26/2013 RECORDED 05/19/19 13 12:57PM BY MARLYS MILAN MA, ANNOTATI ON/ADDEN DUM MEDINA Rouse, [facility] 6 10:51:32 Full thicknes s rotator cuff tear 067253178 Completed 201209/26/2013 RECORDED 09/21/19 13 12:45PM BY ARLIN LIGHT MA, ANNOTATI ON/ADDEN DUM MEDINA Rouse, [facility] 6 10:51:32 Tobacco dependen ce syndrome 43749761 Completed 201109/26/2013 RECORDED 12/16/19 12 9:07AM BY MARLYS MILAN MA, ANNOTATI ON/ADDEN DUM MEDINA Rouse, [facility] 6 10:51:32 Body mass index 40+ - severely obese 976448693 Completed 02/27/2015 Meme miranda [facility] 3 10:07:59 Acute sinusiti s 73957904 Completed 01/29/2016 MEDINA Rouse, [facility] 6 10:42:01 Sinusiti s 98484345 Completed 01/29/2016 MEDINA Rouse, [facility] 6 10:42:32 Body mass index 30+ - obesity 199471369 Completed 03/15/2022 Ky Lara PA-C [address] [address], [place], [address] , [facility] 3 10:03:53 Low back pain 241964764 Completed 03/13/2022 Ky Lara PA-C [address], [place], [address] , [facility] 3 14:00:57 Major depressi ve disorder 568811420 Completed 03/15/2022 Ky Lara PA-C [address], [place], [address] , [facility] 3 10:05:36 Blood in urine 38928746 Completed 07/02/2016 Maritza miranda, [facility] 7 14:02:09 Diarrhea 37009699 Completed 01/29/2016 MEDINA Rouse, [facility] 6 10:42:42 Right lower quadrant pain 222139236 Completed 11/03/2016 MEDINA Rouse, [facility] 7 13:03:20 Ex-smoke r 5210633 Active 2015 Not Available [facility] 4 19:50:27 Shoulder pain 36102905 Completed 07/02/2016 Maritza miranda, [facility] 7 14:02:03 Knee pain Completed 07/02/2016 Maritza miranda, [facility] 7 14:02:00 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 69291715 Active Not Available [facility] 4 19:50:27 Diabetic peripher al neuropat hy 974109251 Active 2016 Not Available [facility] 4 19:50:26 Vitamin B12 deficien cy (non anemic) 98136828 Active 2017 Not Available [facility] 4 19:50:26 Muscle pain 65730297 Active 2017 Not Available [facility] 4 19:50:27 Type 2 diabetes mellitus 85686719 Completed 201805/24/2018 MEDINA Rouse, [facility] 9 14:25:08 Type 2 diabetes mellitus without complica tion 557515548 Completed 10/12/2018 well controll ed after bariatri c surgery in 12/2013 MEDINA Rouse, [facility] 9 11:30:03 Hypergly cemia 88010616 Completed 201803/15/2022 Ky Lara PA-C [address], [place], [address] , [facility] 3 10:04:55 Obesity 876362300 Completed 201806/18/2020 Fabi Bates RN null, [facility] 1 15:35:04 Obstruct kaye sleep apnea of adult 19583323352 03 Completed 202003/13/2022 Dx: G47.33 (mild) Ky Lara PA-C [address], [place], [address] , [facility] 3 13:58:48 Obstruct kaye sleep apnea syndrome 39506095 Active 2020 Not Available [facility] 4 19:50:27 Severe dry skin 211347253 Active 2020 Not Available [facility] 4 19:50:27 Psoriati c arthriti s 360650116 Active 2021 Not Available [facility] 4 19:50:26 Pain of right shoulder joint 63916080406 186919 Active 2021 Not Available [facility] 4 19:50:26 COVID-19 659181759 Active 2022 Not Available [facility] 4 19:50:27 Pneumoni tis 878495268 Completed 202203/15/2022 Ky Lara PA-C [address], [place], [address] , [facility] 3 10:06:45 Hyperten sive renal disease 59293053 Active 2022 Not Available [facility] 4 19:50:26 Chronic kidney disease stage 2 211018502 Active 2022 Not Available [facility] 4 19:50:26 Iron deficien cy anemia 95756774 Active 2022 Not Available [facility] 4 19:50:27 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 66150157623 10111 Active 2023 Ky Lara PA-C [address] [facility] [address], [place], [address] , [facility] 4 10:51:38 Mild memory disturba nce 499526421 Completed 202311/23/2023 Ky Lara PA-C [address] [facility] [address], [place], [address] , [facility] 4 11:03:27 Mild major depressi on, single episode 92210651 Active 2023 Meme Fernandez [facility], [facility] 4 15:15:35 Mild neurocog nitive disorder 581777810 Active 2023 Ky Lara PA-C [address] [facility] [address], [place], [address] , [facility] 4 14:50:45 Notes:Some problems listed i n Documents: #[id number], #[id number], #[id number] could not be added to this patient's chart. Please review these documents and add these problems to the patient's chart manually as needed. Problem Notes None recorded. Procedures Surgical History Date Name Laterality Status Provider Name and Address Organization Details Recorded Time 2023 injection of sacroiliac joint completed Sonia Andrea [facility] 4 10:41:48 2023 diabetic retinopathy screening completed Sonia Andrea [facility] 4 12:36:50 2022 Chronic Pain Assessment completed Kesha Strauss MA [facility] 3 10:46:00 2022 Colonoscopy completed Sonia Andrea [facility] 3 11:35:01 2022 esophagogastroduodenoscopy completed Issa Andrea [facility] 3 11:35:07 2020 Diabetic Foot Exam (Monofilament) completed Ky Lara PA-C [address], [place], [address], [facility] 1 21:06:41 2020 polysomnography completed Marlys matias MA [facility] 1 15:44:34 2020 arthroplasty of left shoulder completed Marlys matias MA [facility] 1 15:35:54 2019 Orthopedic Surgery completed Marlys matias MA [facility] 1 15:36:33 2018 injection completed Martita Cooley [facility] 9 10:18:41 2018 Diabetic Foot Exam (Monofilament) completed Marlys matias MA [facility] 9 14:23:33 2018 release of trigger thumb completed Marlys matias MA [facility] 9 14:36:23 2017 Diabetic Foot Exam (Monofilament) completed Marlys matias MA [facility] 8 10:31:14 2017 Glaucoma surgery completed Jason Irizarry MD [address], [place], [address], [facility] 8 11:14:40 2016 Carpal tunnel surgery completed Marlys matias MA [facility] 8 11:06:27 2016 Nerve surgery completed Jason Irizarry MD [address], [place], [address], [facility] 8 11:46:25 2016 Mini-Cog Test completed Marlys matias MA [facility] 7 13:00:13 2016 Chronic Pain Assessment completed Marlys matias MA [facility] 7 12:59:42 2016 Most Recent Mammogram completed Virignia Honeycutt [facility] 9 10:15:24 2016 Other completed Renate Cruz [facility] 7 14:27:22 2016 decompression of lumbar spine completed Marlys matias MA [facility] 1 15:51:46 2013 Lap sleeve gastrectomy completed Maritza aBrragan MA [facility] 4 13:26:44 2012 Date of Last Colonoscopy completed Maritza Barragan [facility] 5 09:28:05 2008 Mammogram screening completed Marlys matias MA [facility] 8 11:10:32 Total hysterectomy completed Marlys matias MA [facility] 7 14:44:54 Back Surgery completed Marlys matias MA [facility] 8 11:10:06 Cholecystectomy completed RACHELL Chester [address], [place], [address], [facility] 4 10:19:07 Hernia Repair completed RACHELL Chester [address] [facility] [address], [place], [address], [facility] 4 10:19:07 Imaging Results None recorded. Procedure Notes None recorded. Medical Equipment None Reported. Allergies Allergen ID Allergen Name Allergen Category Reaction Reaction Severity Criticality Documentation Date Start Date Code Code System Note Provider Name and Address Organization Details Recorded Time 34649 adhesive environme nt,medica tion rash Not available Not available 03/14/2016 [facility] 7 14:43:07 6387 Cleocin medicatio n hives itching Not available Not available Not available 08/30/20132013 2 RxNorm [facility] 7 14:42:54 6388 codeine medicatio n Not available Not available Not available 08/30/20132012 2670 RxNorm NAUSE A Not Available [facility] 4 19:50:25 6389 Decadron medicatio n hives itching Not available Not available Not available 08/30/20132013 90290 2 RxNorm MEDINA Bowers, [facility] 7 14:42:50 Medications Name Sig Start [...] at bedtime for 30 days. 11/09 completed 24 - not refilled , ? why Not [...] 11/08/19 08 4:16PM BY JORGE Rai NP, MIGDALIA ON/ADDEN DUM; Not Available Not Available Not Available ofloxacin [...] 08 9:34AM BY OPHELIA GARCIA MA, MIGDALIA ON/ADDEN DUM; Not Available Not Available [...] 03/25/19 08 9:09PM BY JORGE Rai NP, MIGDALIA ON/ DUM; [...] 12 1:01PM BY MARLYS MILAN MA, OFFICE VISIT;CA PILY CASANOVA Not Available Not Available Not Available [...] 08/12 completed RECORDED 08/13/19 11 2:59PM BY RENATE CRUZ, MIGDALIA ON/ADD DUM; Not Available Not Available Not Available cephalexi [...] 11/08/19 08 4:16PM BY JORGE Rai NP, MIGDALIA ON/ DUM; [...] 05/26/19 12 9:35AM BY JASON IRIZARRY MD, ANNOTATI ON/ADDEN DUM; Not Available Not Available Not Available albuterol sulfate HFA 90 mcg/actua tion aerosol inhaler Inhale 2 puffs every 4 hours by inhalati on route as directed for 30 days. active Not Available Not Available No t Available diltiazem 30 mg tablet DAILY active RECORDED 10/03/19 11 10:15AM BY TARYN SMITH I, JUDYATI ON/ADDEN DUM; Not Available Not Available Not [...] 08 9:10PM BY JORGE Rai NP, MIGDALIA ON/ADDEN DUM; [...] DREW ON/ADDEN DUM;THIS ORDER DISCONTI NUED PER ITS Compliance-SPA N. Not Available Not Available Not Available [...] 08/13/19 11 2:59PM BY MIGDALIA DREW ON/CHARLEE DUM; Not Available Not Available Not Available acetamino phen 975 mg , 3 tablets by mouth every 8 hours 05/09 completed Not Available Not Available Not Available vitamin E 1 tablet po daily active Not Available Not Available No t Available omeprazol e TWO TIMES DAILY 08/12 completed RECORDED 08/13/19 11 2:59PM BY MIGDALIA DREW ON/CHARLEE DUM; Not Available Not Available Not Available Fish Oil QD 09/30 completed RECORDED 10/01/19 08 8:33AM BY MARLYS MILAN MA, OFFICE VISIT; Not Available Not Available Not Available Iron (ferrous sulfate) 03/14 completed 2 tablets daily Not Available Not Available Not Available peak flow meter USE DAILY. DIAGNOSI S: ASTHMA (493.90) 08/12 completed RECORDED 08/13/19 11 3:00PM BY RENATE CRUZ, ANNOTATI ON/CHARLEE DUM; Not Available Not Available [...] active RECORDED 11/30/19 07 1:50PM BY JORGE Rai NP, ANNOTATI ON/SHANNONANGUS DUM; Not Available Not Available Not Available [...] Not Available Not Available Not Available Fluvirin 2999-8245 45 mcg (15 mcg x 3)/0.5 mL [...] Not Available Vitals Date Recorded Body height Provider Name an d Address Organization Details Last Updated DateTime 11/10/2023 161.29 cm Audie Olivares MA [facility] [place] 11/10/2023 15:30:07 Social History Question Answer Notes LastModified by Organizat ion Details LastModified Time Tobacco Smoking Status Former [facility] [place] 10/31/2013 09:58:43 Do You Have An Advance Directive? Yes HCP Information not available 01/16/2020 What Is Your Level Of Alcohol Consumption? None Notes 26 Years Sobriety Information not available 11/03/2016 Is Blood Transfusion [...] available 11/17/2018 What Is Your Occupation? Former [employer] Information not available 08/25/2014 When Did You Quit Smoking? 16+yearssince magdaleno Information not available 01/16/2021 Live Alone Or [...] of back surgery (Rebel) and shoulder problems Information not available 01/16/2020 Mental Status None [...] virus, trivalent, PF 11/21/2014 completed Not Available [facility] 2023 19:50:27 Pneumococcal conjugate PCV 13 11/21/2014 completed Not Available [facility] 03/06/2023 19:50:27 Tdap 12/26/2014 completed Not Available [facility] 19:50:27 Influenza, split virus, trivalent, preservative 10/18/2015 completed Not Available [facility] 03/06/2023 19:50:27 COVID-19, mRNA, LNP-S, PF, 30 mcg/0.3 mL dose 06/07/2020 completed Not Available [facility] 03/06/2023 19:50:27 COVID-19, mRNA, LNP-S, PF, 30 mcg/0.3 mL dose 06/28/2020 completed Not Available [facility] 03/06/2023 19:50:27 COVID-19, mRNA, LNP-S, PF, 30 mcg/0.3 mL dose 12/28/2020 completed Not Available [facility] 03/06/2023 19:50:27 Influenza, split virus, quadrivalent, PF 10/06/2019 completed Not Available [facility] 03/06/2023 19:50:27 Influenza, split virus, trivalent, preservative 11/20/2020 completed Not Available [facility] 03/06/2023 19:50:27 zoster recombinant 05/31/2021 completed Not Available [facility] 03/06/2023 19:50:27 COVID-19, mRNA, LNP-S, PF, 30 mcg/0.3 mL dose, ciarra-sucrose 06/17/2021 completed Not Available [facility] 03/06/2023 19:50:27 zoster recombinant 01/15/2021 completed Not Available [facility] 03/06/2023 19:50:27 Influenza, split virus, quadrivalent, PF 11/17/2018 completed Not Available [facility] 03/06/2023 19:50:27 Influenza, split virus, quadrivalent, PF 10/01/2016 completed Not Available [facility] 03/06/2023 19:50:27 Influenza, split virus, quadrivalent, PF 11/06/2017 completed Not Available [facility] 03/06/2023 19:50:27 Influenza, MDCK, quadrivalent, PF 12/06/2021 completed Not Available [facility] 03/06/2023 19:50:27 Influenza, split virus, trivalent, PF 10/31/2013 completed Not Available [facility] 2019 02:21:58 pneumococcal polysaccharide PPV23 07/18/1995 completed Not Available [facility] 2023 19:50:27 pneumococcal polysaccharide PPV23 12/25/1998 completed Not Available [facility] 2023 19:50:27 Influenza, split virus, trivalent, preservative 12/10/2005 completed Not Available [facility] 03/06/2023 19:50:27 Td (adult), 2 Lf tetanus toxoid, preservative free, adsorbed 03/03/2006 completed Not Available [facility] 03/06/2023 19:50:27 Influenza, split virus, trivalent, preservative 11/27/2006 completed Not Available [facility] 03/06/2023 19:50:27 Influenza, split virus, trivalent, preservative 10/18/2007 completed Not Available [facility] 03/06/2023 19:50:27 Influenza, split virus, trivalent, preservative 10/30/2008 completed Not Available [facility] 03/06/2023 19:50:27 Influenza, split virus, trivalent, preservative 11/12/2009 completed Not Available [facility] 03/06/2023 19:50:27 Influenza, split virus, trivalent, preservative 10/14/2011 completed Not Available [facility] 03/06/2023 19:50:27 Tdap 03/17/2012 completed Not Available [facility] 19:50:27 influenza, seasonal, intradermal, preservative free 10/22/2012 completed Not Available [facility] 19:50:27 Influenza, split virus, quadrivalent, PF 12/08/2022 completed Meme miranda [facility] 12/08/2022 14:44:09 Past Encounters Encounter ID Performer Location Encounter Start Date Encounter Closed Date Diagnosis/Indication Diagnosis SNOMED-CT Code Diagnosis ICD10 Code [id number] Ky Lara PA-C [facility] [address] [facility] [address] [place] [address] 11/10/2023 14:23:35 11/11/2023 10:02:02 Obstructive sleep apnea syndrome 47058054 G47.33 Mild neuro cognitive disorder 299045308 G31.84 Diabetic p eripheral neuropathy 345772476 E11.40 Spinal coy nosis of lumbar region 97112356 M48.061 Psoriatic arthritis 1563 07824 L40.50 Mild major depression, single episode 98151752 F32.0 Health Concerns Section Related Observation LastModified by Organization Detai ls LastModified Time None Recorded Concern Status LastModified by Organization Details LastModified Time None Recorded Payers Encounter Date Sequence Insurance Name Policy Number Policy Wilson Covered Member ID Wilson Member ID Guarantor Name 11/10/2023 2 [place] [id number] Fara J Parent [id number] Fara Raz Parent 11/10/2023 1 [place] [employer] [place] Fara Crandall Parent [id number] Fara Crandall Parent Notes Date Note Type Note Provider Name and Address Organization Details Recorded Time 11/10/2023 text/html TH visit to [facility] [...] low dose percocet to be used sparingly Ky VASQUEZC [address] [facility], [place], [address], [facility] 11/10/2023 20:49:22 OBGyn Episode No OBEpisode recorded.
== END 2024-01-21 11:44 | disposition home or self-care (01) ==
PROVIDERS: PCP Physician Assistant Medical; Visit Provider Internal Medicine Rheumatology
DX: L40.50 Arthropathic psoriasis, unspecified (principal)
CPT/HCPCS: 99214; G2211

== ENCOUNTER → 2024-01-21 10:43 | Outpatient (BNVA) | payer MEDICARE, SELFPAY | PROVIDERS: PCP Physician Assistant Medical; Visit Provider Internal Medicine Rheumatology | DX: L40.50 Arthropathic psoriasis, unspecified (principal) | CPT/HCPCS: 99212 ==

== ENCOUNTER 2024-01-25 08:59 | Outpatient (REF) | payer MEDICARE, SELFPAY ==
[2024-01-25 09:15] LABS: MANUAL DIFF FLAG NO
[2024-01-25 09:31] LABS: Basophils Absolute Auto 0.1 X10*3/uL (0.0-0.2); Basophils Percent Auto 0.5 % (0-2); Eosinophils Absolute Auto 0.3 X10*3/uL (0.0-0.4); Eosinophils Percent Auto 3.5 % (0-4); Hematocrit 35.7 % (37.0-47.0); Hemoglobin 11.5 g/dl (12.0-16.0); Imm Gran Abs Auto 0.05 X10*3/uL (0.00-0.03); Imm Gran Pct Auto 0.5 % (0.0-0.4); Lymphocytes Absolute Auto 2.9 X10*3/uL (1.2-4.9); Lymphocytes Percent Auto 29.5 % (20-40); Mean Corpuscular HGB Conc 32.2 g/dl (31.0-35.0); Mean Corpuscular Hemoglobin 30.8 pg (27.0-33.0); Mean Corpuscular Volume 95.7 fL (80.0-98.0); Mean Platelet Volume 9.6 fL (9.4-12.3); Monocytes Absolute Auto 1.3 X10*3/uL (0.1-1.2); Monocytes Percent Auto 13.4 % (2-11); Neutrophils Absolute Auto 5.1 x10*3/uL (2.0-8.3); Neutrophils Percent Auto 52.6 % (45-73); Platelet Count 332 X10*3/uL (160-400); Red Blood Count 3.73 X10*6/uL (4.20-5.50); Red Cell Distribution Width 13.2 % (11.0-16.0); White Blood Count 9.8 X10*3/uL (4.8-10.8)
[2024-01-25 10:02] LABS: Alanine Aminotransferase 27 U/L (0-31); Aspartate Amino Transferase 28 U/L (5-31); C Reactive Protein 0.51 mg/dL (< or = 0.50); Estimated Glomerular Filt Rate > 60
[2024-01-25 10:11] LABS: Erythrocyte Sedimentation Rate 33 MM/HR (0-20)
[2024-01-25 10:17] LABS: HBsAGNum1 0.36 S/CO (0.00-0.99); Hepatitis B Core Antibody Nonreactive (Nonreactive); Hepatitis B Surface Antigen Negative (Negative); ~HepC Num1 0.18 S/CO (0.00-0.79); ~Hepatitis B Surface Antibody NONREACTIVE (Nonreactive); ~Hepatitis C Antibody Nonreactive (Nonreactive)
--- OUTSIDE RECORDS SUMMARY | 2024-01-27 13:45 | XMS_ITS | Clinical Summary ---
Author Organization Unknown Care Team Providers Care Conductor Yard Name Role Phone MINI BUCIO, TA Unavailable Unavailable EDEL PT, GUANACO Unavailable Unavailable SPAFFORD OT, VALERIA Unavailable Unavailable SUSAN RN, MURIEL Unavailable Unavailable Payers Payer Name Policy Type Policy Number Effective Date Expira tion Date MEDICARE.NGS.PDGM [id number] Problems Condition Name Condition Details Condition Category [...] 5 mg tablet 03-14 00:00: 00 Yes [id number] FOR PAIN Per instruc tions EVERY 4 HOURS DIRECTED NEEDED DAILY Per instructio ns EVERY 4 HOURS DIRECTED NEEDED DAILY (route: oral) Med Classific ation: Analgesic , Anti-infl ammatory or Antipyret ic DOK 100 mg capsule 03-14 00:00: 00 Yes [id number] Per instruc tions UP TO TWICE DAILY DIRECTED NEEDED Per instructio ns UP TO TWICE DAILY DIRECTED NEEDED (route: oral) Med Classific ation: Gastroint estinal Therapy Agents acetaminoph en 500 mg tablet 03-14 00:00: 00 Yes [id number] FOR PAIN Per instruc tions EVERY 8 HOURS Per instructio ns EVERY 8 HOURS (route: oral) Med Classific ation: Analgesic , Anti-infl ammatory or Antipyret ic aspirin 325 mg tablet 03-14 00:00: 00 Yes [id number] Per instruc tions DAILY FOR 14 DAYS BEGINNING THE DAY Per instructio ns DAILY FOR 14 DAYS BEGINNING THE DAY (route: oral) Med Classific ation: Analgesic , Anti-infl ammatory or Antipyret ic alprazolam 0.25 mg tablet 2019-02 00:00: 00 Yes [id number] Per instruc tions EVERY 48 HOURS Per instructio ns EVERY 48 HOURS (route: oral) Med Classific ation: Central Nervous System Agents gabapentin 300 mg capsule 2019-02 00:00: 00 Yes [id number] Per instruc tions THREE TIMES A DAY Per instructio ns THREE TIMES A DAY (route: oral) Med Classific ation: Central Nervous System Agents lisinopril 10 mg tablet 03-17 00:00: 00 Yes [id number] Per instruc tions EVERY DAY Per instructio ns EVERY DAY (route: oral) Med Classific ation: Cardiovas cular Therapy Agents naproxen 500 mg tablet 2019-02 00:00: 00 03-22 00:00 :00 No [id number] Per instruc tions TWO TIMES A DAY Per instructio ns TWO TIMES A DAY (route: oral) Med Classific ation: Analgesic , Anti-infl ammatory or Antipyret ic amitriptyli ne 100 mg tablet 2019-02 00:00: 00 Yes [id number] Per instruc tions EVERY DAY Per instructio ns EVERY DAY (route: oral) Med Classific ation: Central Nervous System Agents cephalexin 500 mg tablet 03-21 00:00: 00 Yes [id number] 1 tablet 4 TIMES DAILY 1 tablet 4 TIMES DAILY (route: oral) Med Classific ation: Anti-Infe ctive Agents cholecalcif williams (vitamin D3) 25 mcg (1,000 unit) capsule 03-21 00:00: 00 Yes [id number] 1 capsule DAILY 1 capsule DAILY (route: oral) Med Classific ation: Electroly te Balance-N utritiona l Products multivitami n tablet 03-21 00:00: 00 Yes [id number] 1 tablet DAILY 1 tablet DAILY (route: oral) Med Classific ation: Electroly te Balance-N utritiona l Products travoprost 0.004 % eye drops 03-21 00:00: 00 Yes [id number] 1 drops DAILY 1 drops DAILY (route: ophthalmic (eye)) Med Classific ation: Ophthalmi c Agents Vitamin D3 25 mcg (1,000 unit) capsule 03-21 00:00: 00 Yes [id number] 1 capsule DAILY 1 capsule DAILY (route: [...] FOLLOWING ANY HOSPITAL ADMISSION. ALL DISCIPLINES (EXCEPT [facility]) MAY PROVIDE TELEHEALTH PHONE/REMOTE/VIRTUAL VISITS IN LIEU [...] FOLLOWING ANY HOSPITAL ADMISSION. ALL DISCIPLINES (EXCEPT [facility]) MAY PROVIDE TELEHEALTH PHONE/REMOTE/VIRTUAL VISITS IN LIEU [...] ANY HOSPITAL ADMISSION. ALL DISCIPLINES (EXCEPT [facility] [employer] [facility]) MAY PROVIDE TELEHEALTH PHONE/REMOTE/VIRTUAL VISITS IN LIEU [...] ANY HOSPITAL ADMISSION. ALL DISCIPLINES (EXCEPT DIRECTOR OF SUPPLY CHAIN) MAY PROVIDE TELEHEALTH PHONE/REMOTE/VIRTUAL VISITS IN LIEU [...] End Date/Time Encounter Type Admission Type Attending [facility] Care Department Encounter ID Discharge Date Discharge Status Discharge Condition Discharge Reason Percent Goals Met 2020-03-22 00:00:00 2020-04-09 00:00:00 Outpatient NEW ADMISSION MURIEL DAVIS [facility] [id number] 2020-04-09 00:00:00 DISCHARGE TO HOME OR SELF CARE INDEPENDEN T IN THE HOME HH ONLY - OUT PATIENT 93.75
--- OUTSIDE RECORDS SUMMARY | 2024-01-27 13:45 | XMS_ITS | Clinical Summary ---
Author Organization Unknown Care Team Providers Care Sheet Turner Name Role Phone MINI BUCIO, TA Unavailable Unavailable EDEL PT, GUANACO Unavailable Unavailable SPAFFORD OT, VALERIA Unavailable Unavailable SUSAN RN, MURIEL Unavailable Unavailable Payers Payer Name Policy Type Policy Number Effective Date Expira tion Date MEDICARE.NGS.PDGM [id number] Problems Condition Name Condition Details Condition Category [...] 5 mg tablet 03-14 00:00: 00 Yes [id number] FOR PAIN Per instruc tions EVERY 4 HOURS DIRECTED NEEDED DAILY Per instructio ns EVERY 4 HOURS DIRECTED NEEDED DAILY (route: oral) Med Classific ation: Analgesic , Anti-infl ammatory or Antipyret ic DOK 100 mg capsule 03-14 00:00: 00 Yes [id number] Per instruc tions UP TO TWICE DAILY DIRECTED NEEDED Per instructio ns UP TO TWICE DAILY DIRECTED NEEDED (route: oral) Med Classific ation: Gastroint estinal Therapy Agents acetaminoph en 500 mg tablet 03-14 00:00: 00 Yes [id number] FOR PAIN Per instruc tions EVERY 8 HOURS Per instructio ns EVERY 8 HOURS (route: oral) Med Classific ation: Analgesic , Anti-infl ammatory or Antipyret ic aspirin 325 mg tablet 03-14 00:00: 00 Yes [id number] Per instruc tions DAILY FOR 14 DAYS BEGINNING THE DAY Per instructio ns DAILY FOR 14 DAYS BEGINNING THE DAY (route: oral) Med Classific ation: Analgesic , Anti-infl ammatory or Antipyret ic alprazolam 0.25 mg tablet 2019-02 00:00: 00 Yes [id number] Per instruc tions EVERY 48 HOURS Per instructio ns EVERY 48 HOURS (route: oral) Med Classific ation: Central Nervous System Agents gabapentin 300 mg capsule 2019-02 00:00: 00 Yes [id number] Per instruc tions THREE TIMES A DAY Per instructio ns THREE TIMES A DAY (route: oral) Med Classific ation: Central Nervous System Agents lisinopril 10 mg tablet 03-17 00:00: 00 Yes [id number] Per instruc tions EVERY DAY Per instructio ns EVERY DAY (route: oral) Med Classific ation: Cardiovas cular Therapy Agents naproxen 500 mg tablet 2019-02 00:00: 00 03-22 00:00 :00 No [id number] Per instruc tions TWO TIMES A DAY Per instructio ns TWO TIMES A DAY (route: oral) Med Classific ation: Analgesic , Anti-infl ammatory or Antipyret ic amitriptyli ne 100 mg tablet 2019-02 00:00: 00 Yes [id number] Per instruc tions EVERY DAY Per instructio ns EVERY DAY (route: oral) Med Classific ation: Central Nervous System Agents cephalexin 500 mg tablet 03-21 00:00: 00 Yes [id number] 1 tablet 4 TIMES DAILY 1 tablet 4 TIMES DAILY (route: oral) Med Classific ation: Anti-Infe ctive Agents cholecalcif williams (vitamin D3) 25 mcg (1,000 unit) capsule 03-21 00:00: 00 Yes [id number] 1 capsule DAILY 1 capsule DAILY (route: oral) Med Classific ation: Electroly te Balance-N utritiona l Products multivitami n tablet 03-21 00:00: 00 Yes [id number] 1 tablet DAILY 1 tablet DAILY (route: oral) Med Classific ation: Electroly te Balance-N utritiona l Products travoprost 0.004 % eye drops 03-21 00:00: 00 Yes [id number] 1 drops DAILY 1 drops DAILY (route: ophthalmic (eye)) Med Classific ation: Ophthalmi c Agents Vitamin D3 25 mcg (1,000 unit) capsule 03-21 00:00: 00 Yes [id number] 1 capsule DAILY 1 capsule DAILY (route: [...] FOLLOWING ANY HOSPITAL ADMISSION. ALL DISCIPLINES (EXCEPT [facility]) MAY PROVIDE TELEHEALTH PHONE/REMOTE/VIRTUAL VISITS IN LIEU [...] FOLLOWING ANY HOSPITAL ADMISSION. ALL DISCIPLINES (EXCEPT [facility]) MAY PROVIDE TELEHEALTH PHONE/REMOTE/VIRTUAL VISITS IN LIEU [...] FOLLOWING ANY HOSPITAL ADMISSION. ALL DISCIPLINES (EXCEPT [facility]) MAY PROVIDE TELEHEALTH PHONE/REMOTE/VIRTUAL VISITS IN LIEU [...] FOLLOWING ANY HOSPITAL ADMISSION. ALL DISCIPLINES (EXCEPT MANAGER USER EXPERIENCE) MAY PROVIDE TELEHEALTH PHONE/REMOTE/VIRTUAL VISITS IN LIEU [...] End Date/Time Encounter Type Admission Type Attending [facility] Care Department Encounter ID Discharge Date Discharge Status Discharge Condition Discharge Reason Percent Goals Met 2020-03-22 00:00:00 2020-04-09 00:00:00 Outpatient NEW ADMISSION MURIEL DAVIS [facility] [id number] 2020-04-09 00:00:00 DISCHARGE TO HOME OR SELF CARE INDEPENDEN T IN THE HOME HH ONLY - OUT PATIENT 93.75
[2024-01-28 03:48] LABS: TS Negative Control Passed; TS Panel A 1; TS Panel B 0; TS Positive Control Passed; TSpotTB Negative (Negative)
== END 2024-01-25 09:00 | disposition home or self-care (01) ==
LOC: HO.LAB 08:59
PROVIDERS: PCP Physician Assistant Medical; Visit Provider Internal Medicine Rheumatology
DX: L40.50 Arthropathic psoriasis, unspecified (principal)
CPT/HCPCS: 36415; 82565; 84450; 84460; 85025; 85652; 86140; 86481; 86704; 86706; 86803; 87340

== ENCOUNTER 2024-04-21 08:07 | Outpatient (AMB) | payer MEDICARE, SELFPAY ==
[2024-04-21 08:12] VITALS: BP 130/70; PULSE 111; O2SAT 99; BMI 43.1
--- NOTE | 2024-04-21 08:12 | A.OFFVIS_ITS ---
Vital Signs 04/21/24 08:12 Height 5 ft 2 in Weight 235 lb 14.314 oz BMI 43.1 BP 130/70 Blood Pressure Location Lt brachial Position Sitting Pulse 111 H Pulse Source Pulse Oximeter Pulse Oximetry (%) 99 Oxygen Delivery Method Room Air Intake Visit Reasons: 3 mo follow up Intake Note: Patient presents today for psoriatic arthritis. Allergies dexamethasone [From Decadron] Allergy (Intermediate, Verified 04/21/24 08:12) Itchy rash medical tapes Adverse Reaction (Mild, Uncoded 01/21/24 11:11) Rash HPI HPI 3 mo follow up: Details: She is recovering from diarrhea. She is on an antibiotic that is similar to amoxicillin with last day tomorrow. Diarrhea is improving. She had recurrence of joint symptoms and swelling especially in her hands after prednisone course was completed. She also had improvement of right knee pain. Right knee is s wollen. [facility] Medical History (Updated 04/21/24 @ 08:39 by Alon Viera MD) Psoriatic arthritis Low back pain Bilateral cataracts FH: cholecystectomy Ulnar nerve compression Surgical History (Updated 01/21/24 @ 11:27 by Courtney Ron CMA) History of hysterectomy S/P tonsillectomy Previous back surgery Review of Systems Const All systems reviewed & are unremarkable except as noted in HPI and below Physical Exam Vital Signs: Last Vital Signs Pulse 111 H 04/21/24 08:12 BP 130/70 04/21/24 08:12 Pulse Ox 99 04/21/24 08:12 Oxygen Delivery Method Room Air 04/21/24 08:12 BMI result Body Mass Index 43.1 Const Other: General: Comfortable CVS: RRR Respiratory: clear to auscultation bilaterally. Good respiratory effort Skin: No lesions seen MSK: Synovitis of multiple MCPs and PIP with tenderness. 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 Shoulder abduction 160 degrees bilateral. Knee flexion is limited. She has synovitis and tenderness of right knee. Assessment & Plan Assessment & Plan (1) Psoriatic arthritis: Comment: Psoriatic arthritis is uncontrolled. She is off of Enbrel. She has had treatment failure on Enbrel and Humira. We discussed next steps in treatment with DMARD therapy. We discussed side effects, benefits and drug monitoring on Cosentyx. We will treat current symptoms with another course of prednisone with longer course with hopes to bridge with Cosentyx. She has tolerated prednisone without any side effects or exacerbation of psoriasis. 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 Code(s): L40.50 - Arthropathic psoriasis, unspecified Category: Medical Plan: Labs for disease and baseline prior to initiating Cosentyx ordered. PA for Cosentyx [place] [facility] she will need nurse visit for teaching 1st dose administration in office and labs ordered a month after starting Cosentyx: CBC, creatinine, AST and ALT. Return to clinic in 3 months Requesting medical [facility] Orders: Orders Complete Blood Count Auto Diff Today Z79.60 - detention (current) use of unspecified immunomodulators and immunosuppressants Creatinine Today Z79.60 - detention (current) use of unspecified immunomodulators and immunosuppressants C Reactive Protein Today Z79.899 - Other penitentiary (current) drug therapy Alanine Aminotransferase Today Z79.60 - watermelon harvesting supervisor (current) use of unspecified immunomodulators and immunosuppressants Aspartate Amino Transferase Today Z79.60 - watermelon harvesting supervisor (current) use of unspecified immunomodulators and immunosuppressants Erythrocyte Sedimentation Rate Today Z79.899 - Other intermodal truck driver (current) drug therapy Medications: New secukinumab (Cosentyx Pen) Induction. PA needed. First dose administration in office with nurse teaching visit. Patient needs to schedule nurse teaching visit. 150 mg subcut QWEEK 5 weeks 5 mL 0RF secukinumab (Cosentyx Pen) PA needed. 150 mg subcut Q4W 1 mL 2RF Changed From prednisone Take 4 tablets daily 5 days, 3 tablets daily 5 days, 2 tablets daily 5 days, 1 tablet daily 5 days then stop. Take prednisone with food. 5 mg PO DIRECTED 50 tabs 0RF To prednisone Take 4 tablets daily 7 days, 3 tablets daily 7 days, 2 tablets daily 7 days, 1 tablet daily 7 days then stop. Take prednisone with food. 5 mg PO DIRECTED 70 tabs 0RF Coding Level of Care Code Est Pt Level 4 (96480) Complex EM visit Add On G2211 Diagnoses Psoriatic arthritis L40.50
--- OUTSIDE RECORDS SUMMARY | 2024-04-21 08:18 | XMS_ITS | Data Portability ---
Author Organization [facility], [place], Main Office Address [address] [facility] [address] [place] [id number] Care Team Providers Care Candy Puller Name Role Phone JOEL DAO Boatbuilder Apprentice Wood VALENTÍN MONTERO Psychiatrist KESHIA COOPER Server Engineer CORA LARA Primary Care Provider [phone] CORWIN DAVISON Boatbuilder Apprentice Wood RANDI CAMARENA Neurophysiologist JASON ONEAL Pain Management DANIEL ORTIZ Geriatric Medicine SHADI CARVALHO Neuropsychologist [phone] Maintenance Supervisor Assessment Encounter Date Assessment Date Assessment LastModified by Organization Details LastModified Time 11/10/2023 11/10/2023 This service was provided using telemedicine. Patient consented to telephone visit Patient was located in the [facility]. Provider was located in the office. No other persons participated in the telemedicine visit except for the patient unless otherwise indicated here. {{}} Total time of visit was 47 minutes. [email or web address] Not available 11/10/2023 20:49:06 Plan of Treatment Reminders Order Date Submit Date Provider Last Modified By Organization Details Last Modified Time Details Appointments Follow Up DM 30 2024 01:00P M Cora Lara PA-C Not available Not available Not available Lab HbA1c (hemog lobin A1c), blood 2024 025 ANDREW [facility] (Centralized Electronic Ordering - All Locations), Patient Can Go To The Location Of Their Choice, [id number] 04/14/2024 11:19:51 lipid panel, serum 2024 025 ANDREW [facility] ([facility]ized Electronic Ordering - All Locations), Patient Can Go To The Location Of Their Choice, 04/14/2024 11:19:50 CK (creat ine kinase ), total, serum 2024 ANDREW [facility] ([facility]ized [facility] Ordering - All Locations), Patient Can Go To The Location Of Their Choice, 04/14/2024 11:19:50 vitami n D, 25-hyd willie, total, serum 2024 ANDREW [facility], [address], [place], [address], 02/25/2024 20:06:20 microa lbumin /creat inine, mass ratio, urine 2024 ANDREW [facility] (Centralized Electronic Ordering - All Locations), Patient Can Go To The Location Of Their Choice, 02/25/2024 20:06:19 CMP, serum or plasma 2024 025 ANDREW [facility] (Centralized Electronic Ordering - All Locations), Patient Can Go To The Location Of Their Choice, 02/25/2024 20:06:18 HbA1c (hemog lobin A1c), blood 2024 025 ANDREW [facility] (Centralized Electronic Ordering - All Locations), Patient Can Go To The Location Of Their Choice, 02/22/2024 11:22:33 lipid panel, serum 2024 025 ANDREW [facility] (Centralized Electronic Ordering - All Locations), Patient Can Go To The Location Of Their Choice, 02/22/2024 11:22:32 CK (creat ine kinase ), total, serum 2024 025 ANDREW [facility] ([facility]ized Electronic Ordering - All Locations), Patient Can Go To The Location Of Their Choice, 02/22/2024 11:22:32 lipid panel, serum 2023 024 ANDREW [facility] ([facility]ized Electronic Ordering - All Locations), Patient Can Go To The Location Of Their Choice, [id number] 11/23/2023 11:22:03 CK (creat ine kinase ), total, serum 2023 024 ANDREW [facility] ([facility]ized Electronic Ordering - All Locations), Patient Can Go To The Location Of Their Choice, [id number] 11/23/2023 11:22:03 HbA1c (hemog lobin A1c), blood 2023 024 ANDREW [facility] ([facility]ized [facility] Ordering - All Locations), Patient Can Go To The Location Of Their Choice, [id number] 11/14/2023 03:06:29 HbA1c (hemog lobin A1c), blood 2023 024 ANDREW [facility] ([facility]ized Electronic Ordering - All Locations), Patient Can Go To The Location Of Their Choice, 11/14/2023 03:06:27 BMP, serum or plasma 2023 024 ANDREW [facility] (Centralized Electronic Ordering - All Locations), Patient Can Go To The Location Of Their Choice, [id number] 11/14/2023 03:06:28 Referral nutrit ionist /dieti juan carlos referr al 2024 025 Not available 04/14/2024 15:53:54 podiat rist referr al 2024 025 laney Baca DPM, [address] [place], [address], 03/26/2024 09:25:27 psycho logist referr al 2023 024 [email or web address] Chris Parson PHD ([facility]), [address] [place], [address], 11/11/2023 10:02:02 Procedures None record ed. Surgeries None record ed. Imaging XR, chest, 2 view 2024 025 [email or web address] [facility], [address] [place], [address], 04/14/2024 11:31:24 Medication Orders amoxic illin 875 mg-pot assium clavul anate 125 mg tablet 2024 025 [facility] #[id number], [address] [place], [place], [id number], 04/14/2024 11:27:10 albute rol sulfat e HFA 90 mcg/ac tuatio n aeroso l inhale r 2023 [id number] #[id number], [address] [place], [place], [id number], 11/26/2023 01:14:53 cyclob enzapr ine 5 mg tablet 2023 024 [facility] #69420, [address], [place], [id number], 11/23/2023 11:22:01 pantop razole 40 mg tablet ,delay ed releas e 2023 024 [facility] #10798, [address] [place], [id number], 11/23/2023 11:22:01 Mounja ro 2.5 mg/0.5 mL subcut aneous pen inject or 2023 024 [facility] #03463, [address], [place], [id number], 11/23/2023 10:21:26 Patient Targets Encounter Date Encounter Id Patient Goals Patient Target Last Modified By Organization Details Last Modified Time 08/17/2023 [id number] Ongoing of Microalbumin/Cre atinine Ratio yearly Not available Not available Not available Ongoing of Blood Pressure 130 / 80 Not available Not available Not available Ongoing [...] goal. pmadden Not available 08/17/2023 14:55:50 11/23/2023 [id number] Ongoing of Microalbumin/Cre atinine Ratio yearly Not available Not available Not available Ongoing of Blood Pressure 130 / 80 Not available Not available Not available Ongoing [...] toward goal. pmadden Not available 11/23/2023 11:14:05 02/22/2024 [id number] Ongoing of Microalbumin/Cre atinine Ratio yearly Not available Not available Not available exterminator goal of Blood Pressure 140 / 90 Not available Not available Not available Ongoing of Blood Pressure 130 / 80 Not available Not available Not available exterminator goal of Exercise level Not available Not available Not available exterminator goal of Tobacco Smoking Status Not available Not available Not available Ongoing [...] updated/modified as needed to reflect progress toward goal.Pt advised and agrees to eat a low salt low fat diet; to do moderate exercise (such as walking) 150 minutes per week; to limit alcohol intake (goal of 2 drinks per day or less for men or 1 for woman). and to monitor dietary sodium. Will monitor home blood pressures and bring readings to appointments. Patient preferences and goals incorporated in plan and updated/modified as needed to reflect progress toward goal. pmadden Not available 02/22/2024 11:14:57 04/14/2024 [id number] exterminator goal of Blood Pressure 140 / 90 Not available Not available Not available exterminator goal of Exercise level Not available Not available Not available exterminator goal of Tobacco Smoking Status Not available Not available Not available assisted goal of Excess Body Weight Loss % 5 Not available Not available Not available Ongoing of LDL Direct <100 Not available Not available Not available Ongoing of LDL Direct yearly Not available Not available Not available Pt advised and agrees to work on self-monitoring behaviors; begin an appropriate diet for weight loss (such as a low carbohydrate diet), to do moderate exercise (such as walking) for approximately 150 minutes per week; and to identify desirable and timely rewards that will reinforce achievement of specific weight loss goals.Pt advised and agrees to eat a low salt low fat diet; to do moderate exercise (such as walking) 150 minutes per week; to limit alcohol intake (goal of 2 drinks per day or less for men or 1 for woman). and to monitor dietary sodium. Will monitor home blood pressures and bring readings to appointments. Patient preferences and goals incorporated in plan and updated/modified as needed to reflect progress toward goal.Pt agrees to follow low fat diet, avoid saturated fats , decrease carbohydrate intake to 45 - 50 gm per meal , pt agrees to develop a regular pattern of exercise such as walking 30 minutes a day 3 times a week, Pt will keep a record of exercise and activity level Patient preferences and goals incorporated in plan and updated/modified as needed to reflect progress toward goal. pmadden Not available 04/14/2024 11:40:35 Patient Instructions Encounter Date Encounter Id Patient Instructions Last Modified By Organization Details Last Modified Time 08/17/2023 [id number] type 2 diabetes: care instructions pmadden Not available 08/17/2023 15:05:37 Medications (OTC , herbal therapies, supplements) reviewed and reconciled with patient and or caregiver, including potential side effects, drug interactions, instructions, and the consequences of not taking medication. Reviewed potential barriers to medication adherence, such as side effects from medication or cost of medication. pmadden Not available 08/17/2023 14:44:24 11/10/2023 [id number] Medications (OTC , herbal therapies, supplements) reviewed and reconciled with patient and or caregiver, including potential side effects, drug interactions, instructions, and the consequences of not taking medication. Reviewed potential barriers to medication adherence, such as side effects from medication or cost of medication. pmadden Not available 11/10/2023 16:08:31 11/23/2023 [id number] Medications (OTC , herbal therapies, supplements) reviewed and reconciled with patient and or caregiver, including potential side effects, drug interactions, instructions, and the consequences of not taking medication. Reviewed potential barriers to medication adherence, such as side effects from medication or cost of medication. pmadden Not available 11/23/2023 11:21:58 02/22/2024 [id number] encouraged pt to check outstanding labs as directed pmadden Not available 02/22/2024 10:43:29 Medications (OTC , herbal therapies, supplements) reviewed and reconciled with patient and or caregiver, including potential side effects, drug interactions, instructions, and the consequences of not taking medication. Reviewed potential barriers to medication adherence, such as side effects from medication or cost of medication. pmadden Not available 02/22/2024 10:43:45 04/14/2024 [id number] starting a weigh t loss plan: care instructions pmadden Not available 04/14/2024 11:41:26 Nutrition Referral and Weight Management Follow-up Information pmadden Not available 04/14/2024 11:41:27 Acute Sinusitis: Care Instructions pmadden Not available 04/14/2024 11:26:59 saline nasal washes: care instructions pmadden Not available 04/14/2024 11:26:59 eustachian tube problems: care instructions pmadden Not available 04/14/2024 11:26:59 preventing falls : care instructions pmadden Not available 04/14/2024 11:19:37 well visit, over 65: care instructions pmadden Not available 04/14/2024 11:19:37 Medications (OTC , herbal therapies, supplements) reviewed and reconciled with patient and or caregiver, including potential side effects, drug interactions, instructions, and the consequences of not taking medication. Reviewed potential barriers to medication adherence, such as side effects from medication or cost of medication. pmadden Not available 04/14/2024 11:15:58 Reason for Referral Psychologist Referral for Mi ld major depression, single episode Referring Physician: Cora Lara, Internal Medicine, Encounter Date: 11/10/2023 Electrotyper Helper Referral for Diab etic peripheral neuropathy Referring Physician: Cora Lara, Internal Medicine, Encounter Date: 02/22/2024 Treating Plant Operator/dietitian Refer ral for Body mass index 40+ - severely obese Referring Physician: Cora Lara, Internal Medicine, Encounter Date: 04/14/2024 Results Created Date Observation Date Name Description Value Unit Range Abnormal Flag Note LastModifiedBy Organization Detail LastModifiedTime 08/14/1908/14/2023 CMP14 +LP+H B A1C+A LB RU glucose 115 mg/dL 70-99 above high normal Not Available [facility] ([facility]) [address] [place], [address], 08/15/2023 16:07:03 08/14/1908/14/2023 CMP14 +LP+H B A1C+A LB RU hemoglobin A1C 6.9 % 4.8-5. 6 above high normal Predi abete s: 5.7 - 6.4 Diabe renetta: >6.4 Glyce tawny contr ol for adult s with diabe renetta: <7.0 Not Available [facility] ([facility]) [address] [place], [address], 08/15/2023 16:07:03 08/14/1908/14/2023 CMP14 +LP+H B A1C+A LB RU BUN 10 mg/dL 8-27 Not Available [facility] ([facility]) [address] [place], [address], 08/15/2023 16:07:03 08/14/19 24 08/14/2023 CMP14 +LP+H B A1C+A LB RU creatinine 0.87 mg/dL 0.57-1 .00 Not Available [facility] ([facility]) [address] [place], [address], 08/15/2023 16:07:03 08/14/19 24 08/14/2023 CMP14 +LP+H B A1C+A LB RU eGFR 74 mL/mi n/1.7 3 >59 Not Available [facility] ([facility]) [address] [facility], [place], [address], 08/15/2023 16:07:03 08/14/19 24 08/14/2023 CMP14 +LP+H B A1C+A LB RU BUN/creatini ne ratio 11 12-28 below low normal Not Available [facility] ([facility]) [address] [facility], [place], [address], 08/15/2023 16:07:03 08/14/19 24 08/14/2023 CMP14 +LP+H B A1C+A LB RU sodium 139 mmol/ L 134-14 4 Not Available [facility] ([facility]) [address] [facility], [place], [address], 08/15/2023 16:07:03 08/14/19 24 08/14/2023 CMP14 +LP+H B A1C+A LB RU potassium 4.8 mmol/ L 3.5-5. 2 Not Available [facility] ([facility]) [address] [facility], [place], [address], 08/15/2023 16:07:03 08/14/19 24 08/14/2023 CMP14 +LP+H B A1C+A LB RU chloride 102 mmol/ L 96-106 Not Available [facility] ([facility]) [address] [place], [address], 08/15/2023 16:07:03 08/14/19 24 08/14/2023 CMP14 +LP+H B A1C+A LB RU carbon dioxide, total 23 mmol/ L 20-29 Not Available [facility] ([facility]) [address] [place], [address], 08/15/2023 16:07:03 08/14/19 24 08/14/2023 CMP14 +LP+H B A1C+A LB RU calcium 9.3 mg/dL 8.7-10 .3 Not Available [facility] ([facility]) [address] [facility], [place], [address], 08/15/2023 16:07:03 08/14/19 24 08/14/2023 CMP14 +LP+H B A1C+A LB RU protein, total 6.9 g/dL 6.0-8. 5 Not Available [facility] ([facility]) [address] [place], [address], 08/15/2023 16:07:03 08/14/19 24 08/14/2023 CMP14 +LP+H B A1C+A LB RU albumin 4.1 g/dL 3.9-4. 9 Not Available [facility] ([facility]) [address] [place], [address], 08/15/2023 16:07:03 08/14/19 24 08/14/2023 CMP14 +LP+H B A1C+A LB RU globulin, total 2.8 g/dL 1.5-4. 5 Not Available [facility] ([facility]) [address] [place], [address], 08/15/2023 16:07:03 08/14/19 24 08/14/2023 CMP14 +LP+H B A1C+A LB RU bilirubin, total 0.2 mg/dL 0.0-1. 2 Not Available [facility] ([facility]) [address] [place], [address], 08/15/2023 16:07:03 08/14/19 24 08/14/2023 CMP14 +LP+H B A1C+A LB RU alkaline phosphatase 65 IU/L 44-121 Not Available [facility] ([facility]) [address] [place], [address], 08/15/2023 16:07:03 08/14/19 24 08/14/2023 CMP14 +LP+H B A1C+A LB RU AST (SGOT) 24 IU/L 0-40 Not Available [facility] ([facility]) [address] [facility], [place], [address], 08/15/2023 16:07:03 08/14/19 24 08/14/2023 CMP14 +LP+H B A1C+A LB RU ALT (SGPT) 31 IU/L 0-32 Not Available [facility] ([facility]) [address] [facility], [place], [address], 08/15/2023 16:07:03 08/14/19 24 08/14/2023 CMP14 +LP+H B A1C+A LB RU cholesterol, total 154 mg/dL 100-19 9 Not Available [facility] ([facility]) [address] [facility], [place], [address], 08/15/2023 16:07:03 08/14/19 24 08/14/2023 CMP14 +LP+H B A1C+A LB RU triglyceride s 162 mg/dL 0-149 above high normal Not Available [facility] ([facility]) [address] [facility], [place], [address], 08/15/2023 16:07:03 08/14/19 24 08/14/2023 CMP14 +LP+H B A1C+A LB RU HDL cholesterol 53 mg/dL >39 Not Available [facility] ([facility]) [address] [place], [address], 08/15/2023 16:07:03 08/14/19 24 08/14/2023 CMP14 +LP+H B A1C+A LB RU VLDL cholesterol bettie 28 mg/dL 5-40 Not Available [facility] ([facility]) [address] [place], [address], 08/15/2023 16:07:03 08/14/19 24 08/14/2023 CMP14 +LP+H B A1C+A LB RU LDL chol calc ([facility]) 73 mg/dL 0-99 Not Available [facility] ([facility]) [address] [facility], [place], [address], 08/15/2023 16:07:03 08/14/19 24 08/14/2023 CMP14 +LP+H B A1C+A LB RU LDL calc comment: [employer] Not Available [facility] ([facility]) [address] [facility], [place], [address], 08/15/2023 16:07:03 08/14/19 24 08/15/2023 CMP14 +LP+H B A1C+A LB RU albumin, urine 5.6 ug/mL not estab. Not Available [facility] ([facility]) [address] [facility], [place], [address], 08/15/2023 16:07:03 08/14/19 24 08/15/2023 ALBUM IN/CR EAT RATIO , RANDO M UR creatinine, urine 43.9 mg/dL not estab. Not Available [facility] ([facility]) [address] [facility], [place], [address], 08/15/2023 16:07:04 08/14/19 24 08/15/2023 ALBUM IN/CR EAT RATIO , RANDO M UR alb/creat ratio 13 mg/g_ creat 0-29 Marilynn l: 0 - 29 Moder ately incre ased: 30 - 300 Sever felicitas incre ased: >300 Not Available [facility] ([facility]) [address] [facility], [place], [address], 08/15/2023 16:07:04 02/21/19 25 02/22/2024 COMP. METAB OLIC PANEL (14) glucose 90 mg/dL 70-99 normal Not Available [facility] ([facility]) [address] [place], [address], 02/25/2024 20:06:18 02/21/19 25 02/22/2024 COMP. METAB OLIC PANEL (14) BUN 11 mg/dL 8-27 normal Not Available [facility] ([facility]) [address] [place], [address], 02/25/2024 20:06:18 02/21/19 25 02/22/2024 COMP. METAB OLIC PANEL (14) creatinine 0.86 mg/dL 0.57-1 .00 normal Not Available [facility] ([facility]) [address] [place], [address], 02/25/2024 20:06:18 02/21/19 25 02/22/2024 COMP. METAB OLIC PANEL (14) eGFR 75 mL/mi n/1.7 3 >59 normal Not Available [facility] ([facility]) [address] [place], [address], 02/25/2024 20:06:18 02/21/19 25 02/22/2024 COMP. METAB OLIC PANEL (14) BUN/creatini ne ratio 13 12-28 normal Not Available [facility] ([facility]) [address] [place], [address], 02/25/2024 20:06:18 02/21/19 25 02/22/2024 COMP. METAB OLIC PANEL (14) sodium 138 mmol/ L 134-14 4 normal Not Available [facility] ([facility]) [address] [place], [address], 02/25/2024 20:06:18 02/21/19 25 02/22/2024 COMP. METAB OLIC PANEL (14) potassium 4.6 mmol/ L 3.5-5. 2 normal Not Available [facility] ([facility]) [address] [place], [address], 02/25/2024 20:06:18 02/21/19 25 02/22/2024 COMP. METAB OLIC PANEL (14) chloride 99 mmol/ L 96-106 normal Not Available [facility] ([facility]) [address] [place], [address], 02/25/2024 20:06:18 02/21/19 25 02/22/2024 COMP. METAB OLIC PANEL (14) carbon dioxide, total 24 mmol/ L 20-29 normal Not Available [facility] ([facility]) [address] [place], [address], 02/25/2024 20:06:18 02/21/19 25 02/22/2024 COMP. METAB OLIC PANEL (14) calcium 9.5 mg/dL 8.7-10 .3 normal Not Available [facility] ([facility]) [address] [place], [address], 02/25/2024 20:06:18 02/21/19 25 02/22/2024 COMP. METAB OLIC PANEL (14) protein, total 6.9 g/dL 6.0-8. 5 normal Not Available [facility] ([facility]) [address] [place], [address], 02/25/2024 20:06:18 02/21/19 25 02/22/2024 COMP. METAB OLIC PANEL (14) albumin 4.2 g/dL 3.9-4. 9 normal Not Available [facility] ([facility]) [address] [place], [address], 02/25/2024 20:06:18 02/21/19 25 02/22/2024 COMP. METAB OLIC PANEL (14) globulin, total 2.7 g/dL 1.5-4. 5 Not Available [facility] ([facility]) [address] [place], [address], 02/25/2024 20:06:18 02/21/19 25 02/22/2024 COMP. METAB OLIC PANEL (14) bilirubin, total 0.3 mg/dL 0.0-1. 2 normal Not Available [facility] ([facility]) [address] [place], [address], 02/25/2024 20:06:18 02/21/19 25 02/22/2024 COMP. METAB OLIC PANEL (14) alkaline phosphatase 68 IU/L 44-121 normal Not Available [facility] ([facility]) [address] [place], [address], 02/25/2024 20:06:18 02/21/19 25 02/22/2024 COMP. METAB OLIC PANEL (14) AST (SGOT) 16 IU/L 0-40 normal Not Available [facility] ([facility]) [address] [place], [address], 02/25/2024 20:06:18 02/21/19 25 02/22/2024 COMP. METAB OLIC PANEL (14) ALT (SGPT) 16 IU/L 0-32 normal Not Available [facility] ([facility]) [address] [place], [address], 02/25/2024 20:06:18 02/21/19 25 02/25/2024 ALBUM IN/CR EAT RATIO , RANDO M UR creatinine, urine 51.9 mg/dL not estab. normal Not Available [facility] ([facility]) [address] [place], [address], 02/25/2024 20:06:19 02/21/19 25 02/25/2024 ALBUM IN/CR EAT RATIO , RANDO M UR albumin, urine <3.0 ug/mL not estab. Not Available [facility] ([facility]) [address] [place], [address], 02/25/2024 20:06:19 02/21/19 25 02/25/2024 ALBUM IN/CR EAT RATIO , RANDO M UR alb/creat ratio <6 mg/g_ creat 0-29 Marilynn l: 0 - 29 Moder ately incre ased: 30 - 300 Sever felicitas incre ased: >300 Not Available [facility] ([facility]) [address] [facility], [place], [address], 02/25/2024 20:06:19 02/21/19 25 02/23/2024 VITAM IN D, 25-HY DROXY vitamin D, 25-hydroxy 31.8 NG/mL 30.0-1 00.0 Vitam in D defic iency has been defin ed by the Insti tute of Medic ine and an Endoc rine Socie ty pract ice guide line as a level of serum 25-OH vitam in D less than 20 ng/mL (1,2) . The Endoc rine Socie ty went on to furth er defin e vitam in D insuf ficie ncy as a level betwe en 21 and 29 ng/mL (2). 1. IOM (Inst itute of Medic ine). 2009. Dieta ry refer ence intak es for calci um and D. Laurence hunter [place]: The Natio nal [facility] Press . 2. Chong foster [place], P[place], Bharti off-F nori i DAY, et al. Evalu ation , treat ment, and preve ntion of vitam in D defic iency : an Endoc rine Socie ty clini bettie pract ice guide line. JCEM. 2010; 96(7) :1911 -30. Not Available [facility] ([facility]) [address] [facility], [place], [address], 02/25/2024 20:06:20 Result Notes None recorded. Problems Name Problem SNOMED Code Status Onset Date Resolution Date Notes Provider Name and Address Organization Details Recorded Time Electroc julianogra m abnormal 908368919 Completed 200708/30/2013 RECORDED 10/01/19 08 8:29AM BY DELORIS MILAN MA, ANNOTATI ON/ADDEN DUM MEDINA Rouse MA [facility] 6 10:51:32 Acute asthma 839440924 Completed 201208/30/2013 RECORDED 06/25/19 13 2:34PM BY DELORIS MILAN MA, ANNOTATI ON/ADDEN DUM MEDINA Rouse, [facility], [place] 6 10:51:32 Acute bronchit is [id number] Completed 200708/30/2013 RECORDED 10/01/19 08 8:29AM BY DELORIS MILAN MA, ANNOTATI ON/ADDEN DUM MEDINA Rouse, [facility], [place] 6 10:51:32 Acute sinusiti s [id number] Completed 201208/30/2013 RECORDED 06/25/19 13 2:34PM BY DELORIS MILAN MA, ANNOTATI ON/ADDEN DUM MEDINA Rouse, [facility] [place] 6 10:42:01 Asthma [id number] Active Not Available [facility] 4 19:50:26 Intrinsi c asthma 549932393 Completed 201108/30/2013 RECORDED 09/04/19 12 12:56PM BY DELORIS MILAN MA, ANNOTATI ON/ADDEN DUM MEDINA Rouse, [facility] [place] 6 10:51:32 Screenin g for malignan t neoplasm of breast Completed 201208/30/2013 RECORDED 09/21/19 13 12:45PM BY ARLIN LIGHT MA, ANNOTATI ON/ADDEN DUM MEDINA Rouse, [facility] [place] 6 10:51:32 Cellulit is and abscess of face [id number] Completed 200808/30/2013 RESOLVED DATE: 07/04/19 09; IMPRESSI ON: PT IS IMMUNE SUPPRESS ED WITH HUMIRA FOR RA, TREAT WITH LEVAQUIN ; RECORDED 07/04/19 09 9:11PM BY JORGE Rai NP, ANNOTATI ON/ADDEN DUM MEDINA Rouse, [facility] [place] 6 10:51:32 Chronic pain syndrome 294948054 Active Not Available [facility] 4 19:50:26 Chronic pain syndrome 591374924 Completed 201208/30/2013 RECORDED 03/17/19 13 9:38AM BY DELORIS MILAN MA, ANNOTSILVER ON/ADDEN DUM MEDINA Rouse, [facility] [place] 6 10:51:32 Screenin g for malignan t neoplasm of colon Completed 201108/30/2013 RECORDED 09/04/19 12 12:56PM BY DELORIS MILAN MA, ANNOTSILVER ON/ADDEN DUM MEDINA Rouse, [facility] [place] 6 10:51:32 Cough 30452664 Completed 201208/30/2013 RECORDED 06/25/19 13 2:34PM BY DELORIS MILAN MA, ANNOTSILVER ON/ADDEN DUM MEDINA Rouse, [facility] [place] 6 10:51:32 General symptom 325464735 Completed 201108/30/2013 STORY: SIGNIFIC ANT DECREASE IN EXERCISE TOLERANC E WITH TACHYCAR MARGARETH.; RECORDED 09/04/19 12 12:56PM BY DELORIS MILAN MA, ANNOTSILVER ON/ADDEN DUM MEDINA Rouse, [facility] [place] 6 10:51:32 Depressi ve disorder 26551819 Completed 02/26/2015 Meme miranda [facility] [place] 4 15:15:46 Type 2 diabetes mellitus without complica tion 008743121 Completed 05/01/2017 MEDINA Rouse, [facility] [place] 9 11:30:03 Diarrhea 71799490 Completed 201208/30/2013 IMPRESSI ON: RESOLVIN G PER PT. HAD A FORMED STOOL. SHE DID NOT DO THE STOOL TESTING AND WILL HOLD OFF SINCE DOES NOT HAVE LIQUID STOOL.; RECORDED 03/17/19 13 9:35AM BY DELORIS MILAN MA, MIGDALIA ON/ADDEN DUM MEDINA Rouse, [facility] [place] 6 10:42:42 Dysphagi a [id number] Completed 200708/30/2013 RESOLVED DATE: 01/20/20 08; RECORDED 01/20/20 08 4:23PM BY JORGE Rai NP, MIGDALIA ON/ADDEN DUM MEDINA Rouse, [facility] [place] 6 10:51:32 Edema 303412717 Completed 201208/30/2013 RECORDED 09/21/19 13 12:45PM BY ARLIN LIGHT MA, MIGDALIA ON/ADDEN DUM MEDINA Rouse, [facility] [place] 6 10:51:32 Long-ter m drug therapy Completed 201208/30/2013 RECORDED 05/19/19 13 12:57PM BY DELORIS MILAN MA, ANNOTATI ON/ADDEN DUM MEDINA Rouse, [facility] [place] 6 10:51:32 Gastroes ophageal reflux disease 936506911 Active Not Available [facility] 4 19:50:26 Essentia l hyperten kris 29776281 Completed 03/15/2022 Cora Lara PA-C [address] [facility] [address], [place], [address] , [facility] 3 10:04:39 Exophtha lmos 83437395 Completed 201108/30/2013 RECORDED 09/04/19 12 12:56PM BY DELORIS MILAN MA, ANNOTATI ON/ADDEN DUM MEDINA Rouse, [facility] [place] 6 10:51:32 Influenz a vaccine needed 07454606067 06 Completed 201208/30/2013 RECORDED 10/23/19 13 4:09PM BY NELIDA OLIVARES, OFFICE VISIT MEDINA Rouse, [facility] [place] 6 10:51:32 Tobacco user 007949466 Completed 08/29/2015 MEDINA Rouse, [facility] [place] 6 09:59:57 History of clinical finding in subject 759018686 Completed 01/29/2016 MEDINA Rouse, [facility] [place] 6 10:42:37 Adult health examinat ion Completed 01/29/2016 MEDINA Rouse, [facility] [place] 6 10:42:26 Follow-u p encounte r Completed 201308/30/2013 RECORDED 05/12/19 14 2:21PM BY ANAMARIA RIVERA MA, MGIDALIA ON/ADDEN DUM MEDINA Rouse, [facility] [place] 6 10:51:32 Hyperlip idemia 79124956 Active Not Available [facility] 4 19:50:26 Immunosu ppressio n [id number] Completed 201108/30/2013 RECORDED 04/23/19 12 1:24PM BY MIGDALIA MEZA ON/ADDEN DUM MEDINA Rouse, [facility] [place] 6 10:51:32 Kidney stone 43571861 Completed 201108/30/2013 RECORDED 09/04/19 12 12:56PM BY DELORIS MILAN MA, MIGDALIA ON/ADDEN DUM MEDINA Rouse, [facility] [place] 6 10:51:32 Laborato ry procedur e performe d 937392009 Completed 201308/30/2013 RECORDED 05/12/19 14 2:21PM BY ANAMARIA RIVERA MA, ANNOTATI ON/ADDEN DUM MEDINA Rouse, [facility] [place] 6 10:51:32 Leukocyt osis 013872506 Completed 201208/30/2013 RECORDED 09/21/19 13 12:45PM BY ARLIN LIGHT MA, ANNOTATI ON/ADDEN DUM MEDINA Rouse, [facility] [place] 6 10:51:32 Spinal stenosis of lumbar region 59097592 Active Not Available [facility] 4 19:50:26 Lyme disease 17704175 Completed 201008/30/2013 RECORDED 02/18/19 11 1:17PM BY JASON IRIZARRY MD, ANNOTATI ON/ADDEN DUM MEDINA Rouse, [facility] [place] 6 10:51:32 Malaise and fatigue 744262427 Completed 201208/30/2013 RECORDED 12/12/19 13 8:53AM BY DELORIS MILAN MA, ANNOTSILVER ON/ADDEN DUM MEDINA Rouse, [facility] [place] 6 10:51:32 Renewal of prescrip tion Completed 201208/30/2013 RECORDED 05/19/19 13 12:57PM BY DELORIS MILAN MA, ANNOTSILVER ON/ADDEN DUM MEDINA Rosue, [facility] [place] 6 10:51:32 Ulcerati ve rhinitis 31397187 Completed 200808/30/2013 DATE: 07/04/19 09; RECORDED 09/04/19 12 12:56PM BY DELORIS MILAN MA, ANNOTSILVER ON/ADDEN DUM MEDINA Rouse, [facility] [place] 6 10:51:32 Obstruct kaye sleep apnea syndrome 56715122 Completed 06/18/2020 Cora Lara PA-C [address] [facility] [address], [place], [address] , [facility] 1 11:29:15 Localize d, primary osteoart hritis of the shoulder region 045562355 Completed 03/15/2022 Cora Lara PA-C [address] [facility] [address], [place], [address] , [facility] 3 10:06:07 Bursitis 52063935 Completed 201108/30/2013 RECORDED 09/04/19 12 12:56PM BY DELORIS MILAN MA, ANNOTATI ON/ADDEN DUM MEDINA Rouse, [facility] [place] 6 10:51:32 Otitis media 57476081 Completed 200808/30/2013 RESOLVED DATE: 07/04/19 09; RECORDED 07/04/19 09 9:11PM BY JORGE Rai NP, ANNOTATI ON/ADDEN DUM MEDINA Rouse, [facility] [place] 6 10:51:32 Knee pain Completed 200708/30/2013 RECORDED 10/01/19 08 8:30AM BY DELORIS MILAN MA, ANNOTATI ON/ADDEN DUM Maritza miranda, [facility] [place] 7 14:02:00 Peptic ulcer 61011271 Completed 201208/30/2013 RECORDED 03/11/19 13 1:05AM BY JORGE Rai NP, ANNOTATI ON/ADDEN DUM MEDINA Rouse, [facility] [place] 6 10:51:32 Gastroin testinal obstruct ion 232845641 Completed 11/04/2016 Jason Irizarry MD [address] [facility] [address], [place], [address] , [facility] 7 08:33:12 Persiste nt insomnia 593347259 Active Not Available [facility] 4 19:50:26 Pre-surg asher evaluati on Completed [...] 01/12/20 13 4:03PM BY DELORIS MILAN MA, ANNOTATI ON/ADDEN DUM MEDINA Rouse, [facility] [place] 6 10:51:32 Psoriasi s 6953971 Completed 03/15/2022 Cora Lara PA-C [address] [facility] [address], [place], [address] , [facility] 3 10:06:55 Urine finding 280170222 Completed 201208/30/2013 IMPRESSI ON: ADD CULTURE; RECORDED 09/21/19 13 12:45PM BY ARLIN LIGHT MA, ANNOTATI ON/ADDEN DUM MEDINA Rouse, [facility] [place] 6 10:51:32 Acute respirat ory failure 73256732 Completed 201108/30/2013 RECORDED 09/04/19 12 12:56PM BY DELORIS MILAN MA, JUDYATI ON/ADDANGUS DUM MEDINA Rouse, [facility] [place] 6 10:51:32 Rheumato id arthriti s 68784506 Completed 11/04/2016 Jason Irizarry MD [address], [place], [address] , [facility] 7 08:33:58 Adult health examinat ion Completed 201108/30/2013 RECORDED 12/16/19 12 9:06AM BY DELORIS MILAN MA, ANNOTATI ON/ADDEN DUM MEDINA Rouse, [facility] [place] 6 10:42:26 Morbid obesity 769552569 Active Not Available [facility] 4 19:50:26 Dyspnea 506965517 Completed 201208/30/2013 RECORDED 09/21/19 13 12:45PM BY ARLIN LIGHT MA, ANNOTATI ON/ADDEN DUM MEDINA Rouse, [facility] [place] 6 10:51:32 Disorder of bursa of shoulder region 04098979 Completed 201208/30/2013 STORY: SHAYAN Javed HAS BEEN FOLLOWED BY DR. RAMACHANDRAN FOR RHEUMATO LOGY. UNDERLYI NG DIAGNOSI S OF RA AND PSORIATI C ARTHRITI S. HAS BEEN ON HUMIRA; RECORDED 09/21/19 13 12:45PM BY ARLIN LIGHT MA, ANNOTSILVER ON/ADDEN DUM MEDINA Rouse, [facility] [place] 6 10:51:32 Conducti on disorder of the heart 25320971 Active Not Available [facility] 4 19:50:26 Administ ration of diphther ia and tetanus vaccine Completed 201208/30/2013 RECORDED 05/19/19 13 12:57PM BY DELORIS MILAN MA, ANNOTATI ON/ADDEN DUM MEDINA Rouse, [facility] [place] 6 10:51:32 Full thicknes s rotator cuff tear 400246409 Completed 201208/30/2013 RECORDED 09/21/19 13 12:45PM BY ARLIN LIGHT MA, ANNOTSILVER ON/ADDEN DUM DelorisMEDINA Chávez, [facility] [place] 6 10:51:32 Tobacco dependen ce syndrome 61540836 Completed 201108/30/2013 RECORDED 12/16/19 12 9:07AM BY DELORIS MILAN MA, ANNOTATI ON/ADDEN DUM MEDINA Rouse, [facility] [place] 6 10:51:32 Essentia l hyperten kris 95688414 Completed 201108/30/2013 RECORDED 09/04/19 12 12:56PM BY DELORIS MILAN MA, ANNOTATI ON/ADDEN DUM Cora Lara PA-C [address] [facility] [address], [place], [address] , [facility] 3 10:04:39 Vitamin D deficien 45878318 Active Not Available [facility] 4 19:50:26 Electroc ardiogra m abnormal 591807868 Completed 200709/26/2013 RECORDED 10/01/19 08 8:29AM BY DELORIS MILAN MA, ANNOTATI ON/ADDEN DUM MEDINA Rouse, [facility] [place] 6 10:51:32 Acute asthma 703528447 Completed 201209/26/2013 RECORDED 06/25/19 13 2:34PM BY DELORIS MILAN MA, ANNOTATI ON/ADDEN DUM MEDINA Rouse, [facility] [place] 6 10:51:32 Acute bronchit is 49146275 Completed 200709/26/2013 RECORDED 10/01/19 08 8:29AM BY DELORIS MILAN MA, ANNOTATI ON/ADDEN DUM MEDINA Rouse, [facility] [place] 6 10:51:32 Acute sinusiti s 88549682 Completed 201209/26/2013 RECORDED 06/25/19 13 2:34PM BY DELORIS MILAN MA, ANNOTATI ON/ADDEN DUM MEDINA Rouse, [facility] [place] 6 10:42:01 Intrinsi c asthma 087359067 Completed 201109/26/2013 RECORDED 09/04/19 12 12:56PM BY DELORIS MILAN MA, ANNOTATI ON/ADDEN DUM Deloris chauhan MA null, [facility] [place] 6 10:51:32 Screenin g for malignan t neoplasm of breast Completed 201209/26/2013 RECORDED 09/21/19 13 12:45PM BY ARLIN LIGHT MA, ANNOTATI ON/ADDEN DUM Deloris chauhan MA null, [facility] [place] 6 10:51:32 Cellulit is and abscess of face 442650192 Completed 200809/26/2013 RESOLVED DATE: 07/04/19 09; IMPRESSI ON: PT IS IMMUNE SUPPRESS ED WITH HUMIRA FOR RA, TREAT WITH LEVAQUIN ; RECORDED 07/04/19 09 9:11PM BY JORGE Rai NP, ANNOTATI ON/ADDEN DUM MEDINA Rouse, [facility] [place] 6 10:51:32 Screenin g for malignan t neoplasm of colon Completed 201109/26/2013 RECORDED 09/04/19 12 12:56PM BY DELORIS MILAN MA, ANNOTATI ON/ADDEN DUM MEDINA Rouse, [facility] [place] 6 10:51:32 Cough 93993425 Completed 201209/26/2013 RECORDED 06/25/19 13 2:34PM BY DELORIS MILAN MA, ANNOTATI ON/ADDEN DUM MEDINA Rouse, [facility] [place] 6 10:51:32 General symptom 305380393 Completed 201109/26/2013 STORY: SIGNIFIC ANT DECREASE IN EXERCISE TOLERANC E WITH TACHYCAR MARGARETH.; RECORDED 09/04/19 12 12:56PM BY DELORIS MILAN MA, MIGDALIA ON/ADDEN DUM MEDINA Rouse, [facility] [place] 6 10:51:32 Diarrhea 42716137 Completed 201209/26/2013 IMPRESSI ON: RESOLVIN G PER PT. HAD A FORMED STOOL. SHE DID NOT DO THE STOOL TESTING AND WILL HOLD OFF SINCE DOES NOT HAVE LIQUID STOOL.; RECORDED 03/17/19 13 9:35AM BY DELORIS MILAN MA, MIGDALIA ON/ADDEN DUM MEDINA Rouse, [facility] [place] 6 10:42:42 Dysphagi a [id number] Completed 200709/26/2013 RESOLVED DATE: 01/20/20 08; RECORDED 01/20/20 08 4:23PM BY JORGE Rai NP, MIGDALIA ON/ADDEN DUM MEDINA Rouse, [facility] [place] 6 10:51:32 Edema 342513684 Completed 201209/26/2013 RECORDED 09/21/19 13 12:45PM BY ARLIN LIGHT MA, MIGDALIA ON/ADDEN DUM MEDINA Rouse, [facility] [place] 6 10:51:32 Long-ter m drug therapy Completed 201209/26/2013 RECORDED 05/19/19 13 12:57PM BY DELORIS MILAN MA, ANNOTATI ON/ADDEN DUM MEDINA Rouse, [facility] [place] 6 10:51:32 Exophtha lmos 12416672 Completed 201109/26/2013 RECORDED 09/04/19 12 12:56PM BY DELORIS MILAN MA, ANNOTATI ON/ADDEN DUM MEDINA Rouse, [facility] [place] 6 10:51:32 Influenz a vaccine needed 77092448414 06 Completed 201209/26/2013 RECORDED 10/23/19 13 4:09PM BY NELIDA OLIVARES, OFFICE VISIT MEDINA Rouse, [facility] [place] 6 10:51:32 Follow-u p encounte r Completed 201309/26/2013 RECORDED 05/12/19 14 2:21PM BY ANAMARIA RIVERA MA, ANNOTATI ON/ADDEN DUM MEDINA Rouse, [facility] [place] 6 10:51:32 Immunosu ppressio n [id number] Completed 201109/26/2013 RECORDED 04/23/19 12 1:24PM BY MIGDALIA MEZA ON/ADDEN DUM MEDINA Rouse, [facility] [place] 6 10:51:32 Kidney stone 88043034 Completed 201109/26/2013 RECORDED 09/04/19 12 12:56PM BY DELORIS MILAN MA, ANNOTATI ON/ADDEN DUM MEDINA Rouse, [facility] [place] 6 10:51:32 Laborato ry procedur e performe d 316256565 Completed 201309/26/2013 RECORDED 05/12/19 14 2:21PM BY ANAMARIA RIVERA MA, ANNOTATI ON/ADDEN DUM MEDINA Rouse, [facility] [place] 6 10:51:32 Leukocyt osis 928823947 Completed 201209/26/2013 RECORDED 09/21/19 13 12:45PM BY ARLIN LIGHT MA, ANNOTATI ON/ADDEN DUM MEDINA Rouse, [facility] [place] 6 10:51:32 Lyme disease 38510571 Completed 201009/26/2013 RECORDED 02/18/19 11 1:17PM BY JASON IRIZARRY MD, ANNOTATI ON/ADDEN DUM MEDINA Rouse, [facility] [place] 6 10:51:32 Malaise and fatigue 397237786 Completed 201209/26/2013 RECORDED 12/12/19 13 8:53AM BY DELORIS MILAN MA, ANNOTSILVER ON/ADDEN DUM MEDINA Rouse, [facility] [place] 6 10:51:32 Renewal of prescrip tion Completed 201209/26/2013 RECORDED 05/19/19 13 12:57PM BY DELORIS MILAN MA, ANNOTSILVER ON/ADDEN DUM MEDINA Rouse, [facility] [place] 6 10:51:32 Ulcerati ve rhinitis 32911264 Completed 200809/26/2013 DATE: 07/04/19 09; RECORDED 09/04/19 12 12:56PM BY DELORIS MILAN MA, ANNOTSILVER ON/ADDEN DUM MEDINA Rouse, [facility] [place] 6 10:51:32 Bursitis 07889444 Completed 201109/26/2013 RECORDED 09/04/19 12 12:56PM BY DELORIS MILAN MA, ANNOTSILVER ON/ADDEN DUM MEDINA Rouse, [facility] [place] 6 10:51:32 Otitis media 50020452 Completed 200809/26/2013 RESOLVED DATE: 07/04/19 09; RECORDED 07/04/19 09 9:11PM BY JORGE Rai NP, ANNOTSILVER ON/ADDEN DUM MEDINA Rouse, [facility] [place] 6 10:51:32 Knee pain Completed 200709/26/2013 RECORDED 10/01/19 08 8:30AM BY DELORIS MILAN MA, JUDYATI ON/ADDEN DUM Maritza Yung MEDINA miranda, [facility] [place] 7 14:02:00 Peptic ulcer 39222926 Completed 201209/26/2013 RECORDED 03/11/19 13 1:05AM BY JORGE Rai NP, ANNOTATI ON/ADDEN DUM MEDINA Rouse, [facility] [place] 6 10:51:32 Pre-surg asher mahinati on Completed 201209/26/2013 IMPRESSI ON: WILL NEED [...] 01/12/20 13 4:03PM BY DELORIS MILAN MA, ANNOTATI ON/ADDEN DUM MEDINA Rouse, [facility] [place] 6 10:51:32 Urine finding 686136667 Completed 201209/26/2013 IMPRESSI ON: ADD CULTURE; RECORDED 09/21/19 13 12:45PM BY ARLIN LIGHT MA, MIGDALIA ON/ADDEN DUM MEDINA Rouse, [facility] [place] 6 10:51:32 Acute respirat ory failure 52011434 Completed 201109/26/2013 RECORDED 09/04/19 12 12:56PM BY DELORIS MILAN MA, ANNOTATI ON/ADDEN DUM MEDINA Rouse, [facility] [place] 6 10:51:32 Dyspnea 315924829 Completed 201209/26/2013 RECORDED 09/21/19 13 12:45PM BY ARLIN LIGHT MA, MIGDALIA ON/ADDEN DUM MEDINA Rouse [facility] [place] 6 10:51:32 Disorder of bursa of shoulder region 86423274 Completed 201209/26/2013 STORY: SHAYAN Javed HAS BEEN FOLLOWED BY DR. RAMACHANDRAN FOR RHEUMATO LOGY. UNDERLYI NG DIAGNOSI S OF RA AND PSORIATI C ARTHRITI S. HAS BEEN ON HUMIRA; RECORDED 09/21/19 13 12:45PM BY ARLIN LIGHT MA, MIGDALIA ON/ADDEN DUM MEDINA Rouse [facility] [place] 6 10:51:32 Administ ration of diphther ia and tetanus vaccine Completed 201209/26/2013 RECORDED 05/19/19 13 12:57PM BY DELORIS MILAN MA, ANNOTATI ON/ADDEN DUM MEDINA Rouse [facility] [place] 6 10:51:32 Full thicknes s rotator cuff tear 525952056 Completed 201209/26/2013 RECORDED 09/21/19 13 12:45PM BY ARLIN LIGHT MA, ANNOTATI ON/ADDEN DUM MEDINA Rouse [facility] [place] 6 10:51:32 Tobacco dependen ce syndrome 62711974 Completed 201109/26/2013 RECORDED 12/16/19 12 9:07AM BY DELORIS MILAN MA, ANNOTATI ON/ADDEN DUM MEDINA Rouse [facility] [place] 6 10:51:32 Body mass index 40+ - severely obese 015732233 Completed 02/27/2015 Meme miranda [facility] [place] 3 10:07:59 Acute sinusiti s 72045791 Completed 01/29/2016 MEDINA Rouse, [facility] [place] 6 10:42:01 Sinusiti s 54075618 Completed 01/29/2016 MEDINA Rouse, [facility] [place] 6 10:42:32 Body mass index 30+ - obesity 394048079 Completed 03/15/2022 Cora Lara PA-C [address], [place], [address] , [facility] 3 10:03:53 Low back pain 052837781 Completed 03/13/2022 Cora Lara PA-C [address] [facility] [address], [place], [address] , [facility] 3 14:00:57 Major depressi ve disorder 257441649 Completed 03/15/2022 Cora Lara PA-C [address] [facility] [address], [place], [address] , [facility] 3 10:05:36 Blood in urine 63270373 Completed 07/02/2016 Maritza miranda [facility] [place] 7 14:02:09 Diarrhea 95563375 Completed 01/29/2016 MEDINA Rouse [facility] [place] 6 10:42:42 Right lower quadrant pain 353539421 Completed 11/03/2016 MEDINA Rouse [facility] [place] 7 13:03:20 Ex-smoke r 8003389 Active 2015 Not Available [facility] 4 19:50:27 Shoulder pain 03046108 Completed 07/02/2016 Maritza miranda [facility] [place] 7 14:02:03 Knee pain Completed 07/02/2016 Maritza miranda [facility] [place] 7 14:02:00 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 82193490 Active Not Available [facility] 4 19:50:27 Diabetic peripher al neuropat hy 060408387 Active 2016 Not Available [facility] 4 19:50:26 Vitamin B12 deficien cy (non anemic) 57710921 Active 2017 Not Available [facility] 4 19:50:26 Muscle pain 14650089 Active 2017 Not Available [facility] 4 19:50:27 Type 2 diabetes mellitus 64620632 Completed 201805/24/2018 MEDINA Rouse, [facility] [place] 9 14:25:08 Type 2 diabetes mellitus without complica tion 379226744 Completed 10/12/2018 well controll ed after bariatri c surgery in 12/2013 MEDINA Rouse, [facility] [place] 9 11:30:03 Hypergly cemia 52452561 Completed 201803/15/2022 Cora Lara PA-C [address], [place], [address] , [facility] 3 10:04:55 Obesity 162583563 Completed 201806/18/2020 Fabi Bates RN null, [facility] [place] 1 15:35:04 Obstruct kaye sleep apnea of adult 78241583424 03 Completed 202003/13/2022 Dx: G47.33 (mild) Cora Lara PA-C [address], [place], [address] , [facility] 3 13:58:48 Obstruct kaye sleep apnea syndrome 30157333 Active 2020 Not Available [facility] 4 19:50:27 Severe dry skin 818470834 Active 2020 Not Available [facility] 4 19:50:27 Psoriati c arthriti s 571445966 Active 2021 Not Available [facility] 4 19:50:26 Pain of right shoulder joint 94492146232 887775 Active 2021 Not Available [facility] 4 19:50:26 COVID-19 866589466 Active 2022 Not Available [facility] 4 19:50:27 Pneumoni tis 266549915 Completed 202203/15/2022 Cora Lara PA-C [address] [facility] [address], [place], [address] , [facility] 3 10:06:45 Hyperten sive renal disease 54229082 Active 2022 Not Available [facility] 4 19:50:26 Chronic kidney disease stage 2 394796393 Active 2022 Not Available [facility] 4 19:50:26 Iron deficien cy anemia 98541573 Active 2022 Not Available [facility] 4 19:50:27 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 03107418714 30055 Active 2023 Cora Lara PA-C [address] [facility] [address], [place], [address] , [facility] 4 10:51:38 Mild memory disturba nce 730918092 Completed 202311/23/2023 Cora Lara PA-C [address] [facility] [address], [place], [address] , [facility] 4 11:03:27 Mild major depressi on, single episode 72341238 Active 2023 Meme miranda, [facility] [place] 4 15:15:35 Mild neurocog nitive disorder 298387061 Active 2023 Cora Lara PA-C [address] [facility] [address], [place], [address] , [facility] 4 14:50:45 Notes:Some problems listed i n Documents: #[id number], #[id number], #[id number] could not be added to this patient's chart. Please review these documents and add these problems to the patient's chart manually as needed. Problem Notes None recorded. Procedures Surgical History Date Name Laterality Status Provider Name and Address Organization Details Recorded Time 2023 injection of sacroiliac joint completed Sonia Andrea [facility] [place] 4 10:41:48 2023 diabetic retinopathy screening completed Sonia Andrea [facility] [place] 4 12:36:50 2022 Chronic Pain Assessment completed Kesha Strauss MA [facility] [place] 3 10:46:00 2022 [facility] [place] 3 11:35:01 2022 esophagogastroduodenoscopy completed Issa Andrea [facility] [place] [place] 3 11:35:07 2020 Diabetic Foot Exam (Monofilament) completed Cora Lara PA-C [address], [address] [place] [address] 1 21:06:41 2020 polysomnography completed Deloris matias [facility] [place] [place] 1 15:44:34 2020 arthroplasty of left shoulder completed Deloris matias [facility] [place] [place] 1 15:35:54 2019 Orthopedic Surgery completed Deloris matias [facility] [place] [place] 1 15:36:33 2018 injection completed Martita Cooley [facility] [place] [place] 9 10:18:41 2018 Diabetic Foot Exam (Monofilament) completed Deloris matias [facility] [place] [place] 9 14:23:33 2018 release of trigger thumb completed Deloris matias [facility] [place] [place] 9 14:36:23 2017 Diabetic Foot Exam (Monofilament) completed Deloris matias [facility] [place] [place] 8 10:31:14 2017 Glaucoma surgery completed Jason Irizarry MD [address], [place], [address], [facility] 8 11:14:40 2016 Carpal tunnel surgery completed Deloris matias [facility] [place] [place] 8 11:06:27 2016 Nerve surgery completed Jason Irizarry MD [address], [place], [address], [facility] 8 11:46:25 2016 Mini-Cog Test completed Deloris matias [facility] [place] [place] 7 13:00:13 2016 Chronic Pain Assessment completed Deloris matias [facility] [place] [place] 7 12:59:42 2016 Most Recent Mammogram completed Virginia [facility] 9 10:15:24 2016 Other completed Renate Aguila [facility] [place] [place] 7 14:27:22 2016 decompression of lumbar spine completed Deloris matias [facility] [place] [place] 1 15:51:46 2013 Lap sleeve gastrectomy completed Maritza Barragan [facility] [place] [place] 4 13:26:44 2012 Date of Last Colonoscopy completed Maritza Barragan [facility] [place] [place] 5 09:28:05 04/22/ 2009 Mammogram screening completed Deloris matias [facility] [place] [place] 8 11:10:32 Total hysterectomy completed Deloris matias [facility] [place] [place] 7 14:44:54 Back Surgery completed Deloris matias [facility] [place] [place] 8 11:10:06 Cholecystectomy completed Kathrin Martinez [facility] [address] [facility] [address], [place], [address], [facility] 4 10:19:07 Hernia Repair completed [facility] [address] [facility] [address], [place], [address], [facility] 4 10:19:07 Imaging Results None recorded. Procedure Notes None recorded. Medical Equipment None Reported. Allergies Allergen ID Allergen Name Allergen Category Reaction Reaction Severity Criticality Documentation Date Start Date Code Code System Note Provider Name and Address Organization Details Recorded Time 28416 adhesive environme nt,medica tion rash Not available Not available 03/14/2016 48768 UNK [facility] 7 14:43:07 6387 Cleocin medicatio n hives itching Not available Not available Not available 08/30/20132013 2 RxNorm [facility] 7 14:42:54 6388 codeine medicatio n Not available Not available Not available 08/30/20132012 2670 RxNorm NAUSE A Not Available [facility] 4 19:50:25 6389 Decadron medicatio n hives itching Not available Not available Not available 08/30/20132013 60562 2 RxNorm MEDINA Bowers [facility] [place] [place] 7 14:42:50 Medications Name Sig Start Date [...] BY ARLIN LIGHT MA, OFFICE VISIT;DR Ra CARDONA Not Available Not Available Not Available donepezil [...] 08 4:16PM BY JORGE Rai NP, MIGDALIA ON/ADD DUM; Not Available Not Available [...] 08 9:10PM BY JORGE Rai NP, MIGDALIA ON/ADD DUM; Not Available Not Available [...] 08 9:09PM BY JORGE Rai NP, MIGDALIA ON/ADD DUM; Not Available Not Available [...] 1:01PM BY DELORIS MILAN MA, OFFICE VISIT;MANNY CARDONA Not Available Not Available Not Available amitripty [...] completed RECORDED 08/13/19 11 2:59PM BY RENATE AGUILA ANNOTSILVER ON/CHARLEE LUJAN; Not Available Not Available Not [...] Not Available gabapenti n 300 mg capsule Take 3 capsules 3 times a day by oral route as directed for 90 days. active Not Available Not [...] 03/25/19 08 9:11PM BY JORGE Rai NP, MIDGALIA ON/ADDEN DUM; Not Available Not Available Not [...] t Available amitripty line 100 mg tablet Take 1 tablet every day by oral route. active Not Available Not Available No t Available docusate sodium 100 mg tablet Take 1 tablet twice a day by oral route as directed . 10/11 completed Not Available Not Available Not Available naproxen 500 mg tablet TAKE 1 TABLET BY MOUTH TWICE DAILY prn 08/06 completed Not Available Not Available Not Available cyclospor ine 100 mg capsule QOD 2007 active RECORDED 03/25/19 08 9:10PM BY JORGE Rai NP, MIGDALIA ON/ADD DUM; Not Available Not Available Not Available amoxicill in 875 mg-potass ium clavulana te 125 mg tablet Take 1 tablet twice a day by oral route for 7 days. 2024 active Not Available Not Available Not Avai lable tobramyci n 0.3 %-dexamet hasone 0.1 % [...] DREW ON/ADDEN DUM;THIS ORDER DISCONTI NUED PER Queue-it-SPA N. Not Available Not Available Not Available [...] Not Available Not Available No t Available Horizon Nasal Cpap System device active Not Available Not Available Not Available mirtazapi ne 7.5 mg tablet TAKE 1 TABLET BY MOUTH EVERY DAY AT BEDTIME 07/30 completed Not Available Not Available Not Available duloxetin e 20 mg capsule,d elayed release DAILY 01/20 completed RECORDED 01/21/20 11 1:31PM BY TAWANDA BHATIA MA, OFFICE VISIT;DR Ra CARDONA Not Available Not Available Not Available duloxetin [...] ous pen injector 1 INJECTIO N WEEKLY 04/14 completed Not Available Not Available Not Available FreeStyle Lite Meter USE DAILY 06/11 [...] RECORDED 11/30/19 07 1:50PM BY JORGE Rai, [employer], ANNOTATI ON/ADDEN DUM; Not Available Not Available [...] Not Available Not Available Not Available Fluvirin 1998-0624 45 mcg (15 mcg x 3)/0.5 mL [...] 2 mg/0.85 mL subcutane ous auto-inje ctor 04/14 completed Not Available Not Available Not Available [facility] min 18 mg iron-400 [...] Updated DateTime 4 161.29 cm 41 kg/m2 127773. 21 g 118 /min 99 % 99 % 95.9 [degF] 138 mm[Hg] 83 mm[Hg] Kylah Dean MA [facility] [place] [place] 4 13:53:36 Date Recorded Heart rate Provider Name an d Address Organization Details Last Updated DateTime 08/17/2023 92 /min Cora SimmonsC [address] [address], [place], [address], [facility] [place] [place] 08/17/2023 14:57:34 Date Recorded Body height Provider Name an d Address Organization Details Last Updated DateTime 11/10/2023 161.29 cm Nelida Olivares MA [facility] [place] [place] 11/10/2023 15:30:07 Date Recorded Body height Body mass index (BMI) Body weight Heart rate Oxygen saturation Oxygen saturation in Arterial blood by Pulse oximetry Body temperature Systolic blood pressure Diastolic blood pressure Provider Name and Address Organization Details Last Updated DateTime 4 161.29 cm 41.1 kg/m2 312851. 8 g 105 /min 99 % 99 % 97.3 [degF] 145 mm[Hg] 91 mm[Hg] Kylah Dean MA [facility] [place] [place] 4 10:18:43 Date Recorded Systolic blood pressure Diastolic blood pressure Provider Name and Address Organization Details Last Updated DateTime 11/23/2023 126 mm[Hg] 76 mm[Hg] Cora VASQUEZC [address] [address], [place], [address], [facility] [place] [place] 11/23/2023 11:18:46 Date Recorded Body height Heart rate Oxygen saturation Oxygen saturation in Arterial blood by Pulse oximetry Body temperature Body mass index (BMI) Body weight Systolic blood pressure Diastolic blood pressure Provider Name and Address Organization Details Last Updated DateTime 5 161.29 cm 102 /min 100 % 100 % 97.2 [degF] 41.1 kg/m2 212880. 8 g 148 mm[Hg] 89 mm[Hg] Kylah Dean MA [facility] [place] [place] 5 10:19:00 Date Recorded Systolic blood pressure Diastolic blood pressure Provider Name and Address Organization Details Last Updated DateTime 02/22/2024 126 mm[Hg] 72 mm[Hg] Cora Lara PA-C [address], [place], [address], [facility] 02/22/2024 11:13:25 Date Recorded Body height Body mass index (BMI) Body weight Heart rate Oxygen saturation Oxygen saturation in Arterial blood by Pulse oximetry Body temperature Systolic blood pressure Diastolic blood pressure Provider Name and Address Organization Details Last Updated DateTime 5 161.29 cm 41.3 kg/m2 817979. 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 16+yearssince magdaleno Information not available 01/16/2021 Live Alone Or With Others? Alone And 1 Cat Information not available 04/14/2024 Do You Take Precautions To Prevent Distracted [...] Date Of Your Most Recent Tobacco Screening? 04/14/2024 Information not available 04/14/2024 How Many Children Do You Have? 0 Information not available 05/08/2014 What Is Your Current Pack Years? 20-29packyear s Information not available 04/14/2024 Seat Belts Used Routinely Yes Information not [...] Functional Status Question Answer Note LastModified by [employer] ion Details LastModified Time Are you able to walk? YESASSIST walker Information not available 04/14/2024 Are you able to care for yourself? [...] 0 0 Immunizations Vaccine Type Date Status Note Provider Nam e and Address Organization Details Recorded Time Influenza, split virus, trivalent, PF 5 completed Not Available [facility] 03/06/2023 19:50:27 Pneumococcal conjugate PCV 13 5 completed Not Available [facility] 03/06/2023 19:50:27 Tdap 5 completed Not Available [facility] 03/06/2023 19:50:27 Influenza, split virus, trivalent, preservative 6 completed Not Available [facility] 03/06/2023 19:50:27 COVID-19, mRNA, LNP-S, PF, 30 mcg/0.3 mL dose 1 completed Not Available [facility] 03/06/2023 19:50:27 COVID-19, mRNA, LNP-S, PF, 30 mcg/0.3 mL dose 1 completed Not Available [facility] 03/06/2023 19:50:27 COVID-19, mRNA, LNP-S, PF, 30 mcg/0.3 mL dose 1 completed Not Available [facility] 03/06/2023 19:50:27 Influenza, split virus, quadrivalent, PF 0 completed Not Available [facility] 03/06/2023 19:50:27 Influenza, split virus, trivalent, preservative 1 completed Not Available [facility] 03/06/2023 19:50:27 zoster recombinant 2 completed Not Available [facility] 03/06/2023 19:50:27 COVID-19, mRNA, LNP-S, PF, 30 mcg/0.3 mL dose, ciarra-sucrose 2 completed Not Available [facility] 03/06/2023 19:50:27 zoster recombinant 1 completed Not Available [facility] 03/06/2023 19:50:27 Influenza, split virus, quadrivalent, PF 9 completed Not Available [facility] 03/06/2023 19:50:27 Influenza, split virus, quadrivalent, PF 7 completed Not Available [facility] 03/06/2023 19:50:27 Influenza, split virus, quadrivalent, PF 8 completed Not Available [facility] 03/06/2023 19:50:27 Influenza, MDCK, quadrivalent, PF 2 completed Not Available [facility] 03/06/2023 19:50:27 COVID-19, mRNA, LNP-S, PF, ciarra-sucrose, 30 mcg/0.3 mL 4 completed MEDINA Eason, [facility] [place] [place] 04/14/2024 10:31:13 Influenza, high-dose, trivalent, PF 4 completed MEDINA Eason, [facility] [place] [place] 04/14/2024 10:31:13 Influenza, split virus, trivalent, PF 4 completed Not Available [facility] 03/05/2019 02:21:58 pneumococcal polysaccharide PPV23 6 completed Not Available [facility] 03/06/2023 19:50:27 pneumococcal polysaccharide PPV23 9 completed Not Available [facility] 03/06/2023 19:50:27 Influenza, split virus, trivalent, preservative 6 completed Not Available [facility] 03/06/2023 19:50:27 Td (adult), 2 Lf tetanus toxoid, preservative free, adsorbed 7 completed Not Available [facility] 03/06/2023 19:50:27 Influenza, split virus, trivalent, preservative 7 completed Not Available [facility] 03/06/2023 19:50:27 Influenza, split virus, trivalent, preservative 8 completed Not Available [facility] 03/06/2023 19:50:27 Influenza, split virus, trivalent, preservative 9 completed Not Available [facility] 03/06/2023 19:50:27 Influenza, split virus, trivalent, preservative 0 completed Not Available [facility] 03/06/2023 19:50:27 Influenza, split virus, trivalent, preservative 2 completed Not Available [facility] 03/06/2023 19:50:27 Tdap 3 completed Not Available [facility] 03/06/2023 19:50:27 influenza, seasonal, intradermal, preservative free 3 completed Not Available [facility] 03/06/2023 19:50:27 Influenza, split virus, quadrivalent, PF 3 [facility] 14:44:09 Past Encounters Encounter ID Performer Location Encounter Start Date Encounter Closed Date Diagnosis/Indication Diagnosis SNOMED-CT Code Diagnosis ICD10 Code Diagnosis Note [id number] autoEComm erce [address] [facility] [place] [address] 03/13/2006 00:00:00 [id number] autoEComm erce [address] [facility] [place] [address] 03/03/2006 00:00:00 [id number] autoEComm erce [address] [facility] [place] [address] 01/30/2006 00:00:00 [id number] autoEComm erce [address] [facility] [place] [address] 12/10/2005 00:00:00 [id number] autoEComm erce [address] [facility] [place] [address] 05/12/2006 00:00:00 [id number] autoEComm erce [address] [facility] [place] [address] 07/07/2006 00:00:00 [id number] autoEComm erce [address] [facility] [place] [address] 08/07/2006 00:00:00 [id number] autoEComm erce [address] [facility] [place] [address] 10/09/2006 00:00:00 [id number] autoEComm erce [address] [facility] [place] [address] 11/27/2006 00:00:00 [id number] autoEComm erce [address] [facility] [place] [address] 12/10/2006 00:00:00 [id number] autoEComm erce [address] [facility] [place] [address] 01/12/2007 00:00:00 [id number] autoEComm erce [address] [facility] [place] [address] 01/22/2007 00:00:00 [id number] autoEComm erce [address] [facility] [place] [address] 03/25/2007 00:00:00 [id number] autoEComm erce [address] [facility] [place] [address] 05/04/2007 00:00:00 [id number] autoEComm erce [address] [facility] [place] [address] 08/05/2007 00:00:00 [id number] autoEComm erce [address] [facility] [place] [address] 08/18/2007 00:00:00 [id number] autoEComm erce [address] [facility] [place] [address] 09/02/2007 00:00:00 [id number] autoEComm erce [address] [facility] [place] [address] 10/01/2007 00:00:00 [id number] autoEComm erce [address] [facility] [place] [address] 12/11/2007 00:00:00 [id number] autoEComm erce [address] [facility] [place] [address] 01/03/2008 00:00:00 [id number] autoEComm erce [address] [facility] [place] [address] 01/20/2008 00:00:00 [id number] autoEComm erce [address] [facility] [place] [address] 04/06/2008 00:00:00 [id number] autoEComm erce [address] [facility] [address] [place] [address] 04/13/2008 00:00:00 [id number] autoEComm erce [address] [facility] [place] [address] 07/03/2008 00:00:00 [id number] autoEComm erce [address] [facility] [address] [place] [address] 10/09/2008 00:00:00 [id number] autoEComm erce [address] [facility] [place] [address] 12/21/2008 00:00:00 [id number] autoEComm erce [address] [facility] [place] [address] 01/26/2009 00:00:00 [id number] autoEComm erce [address] [facility] [place] [address] 05/09/2009 00:00:00 [id number] autoEComm erce [address] [facility] [place] [address] 08/10/2009 00:00:00 [id number] autoEComm erce [address] [facility] [place] [address] 09/14/2009 00:00:00 [id number] autoEComm erce [address] [facility] [place] [address] 11/12/2009 00:00:00 [id number] autoEComm erce [address] [facility] [place] [address] 02/18/2010 00:00:00 [id number] autoEComm erce [address] [facility] [place] [address] 07/10/2010 00:00:00 [id number] autoEComm erce [address] [facility] [place] [address] 10/02/2010 00:00:00 [id number] [place] [address] 01/20/2011 00:00:00 [id number] autoEComm erce [address] [place] [address] 05/26/2011 00:00:00 [id number] [address]EComm erce [address] [place] [address] 09/04/2011 00:00:00 [id number] autoEComm erce [address] [facility] [address] [place] [address] 10/14/2011 00:00:00 [id number] autoEComm erce [address] [facility] [place] [address] 12/16/2011 00:00:00 [id number] autoEComm erce [address] [facility] [place] [address] 01/19/2012 00:00:00 [id number] autoEComm erce [address] [facility] [place] [address] 03/17/2012 00:00:00 [id number] autoEComm erce [address] [facility] [place] [address] 05/18/2012 00:00:00 [id number] autoEComm erce [address] [facility] [place] [address] 06/24/2012 00:00:00 [id number] autoEComm erce [address] [facility] [place] [address] 08/17/2012 00:00:00 [id number] autoEComm erce [address] [facility] [place] [address] 09/20/2012 00:00:00 [id number] autoEComm erce [address] [facility] [place] [address] 10/22/2012 00:00:00 [id number] autoEComm erce [address] [facility] [place] [address] 12/11/2012 00:00:00 [id number] autoEComm erce [address] [facility] [place] [address] 12/31/2012 00:00:00 [id number] autoEComm erce [address] [facility] [place], [place] [address] 05/11/2013 00:00:00 [id number] autoEComm erce [address] [facility] [place], [place] [address] 08/12/2013 00:00:00 [id number] Jason Irizarry MD Main Office [address] [facility] [address] [place] [address] 10/31/2013 09:30:33 10/31/2013 10:30:03 Pre-surgery evaluation 495127362 Needs infl uenza immunization 064061100 Morbid obesity 163925052 Continue bariatric diet and classes Type 2 margareth betes mellitus without complication 473857348 Continue current meds Essential hypertension 45652151 Continue current meds Hyperlipidemia 62175650 Continue current meds Gastroesop hageal reflux disease 719395031 Continue current meds [id number] Main Office [address] [facility] [address] [place] [address] 11/09/2013 10:55:48 11/09/2013 11:43:49 Type 2 diabetes mellitus without complication 366010492 Body mass index 40+ - severely obese 301077700 [id number] Main Office [address] [facility] [address] [place] [address] 01/20/2014 13:04:43 01/20/2014 13:55:09 Type 2 diabetes mellitus without complication 963375016 doing well post gastric sleeve. she has f/u in 4 months here Body mass index 40+ - severely obese 710145827 she just had gastric surgery to address this [id number] Maritza Barragan MA Main Office [address] [facility] [address] [place] [address] 02/28/2014 13:59:05 02/28/2014 14:52:32 Acute sinusitis 87493064 [id number] Deloris chauhan MA Main Office [address] [facility] [address] [place] [address] 05/08/2014 09:23:47 05/08/2014 10:33:20 Adult health examination 739780954 Essential hypertension 70874801 Hyperlipidemia 19052339 Obstructiv e sleep apnea syndrome 63462464 Type 2 margareth betes mellitus without complication 291205059 Body mass index 30+ - obesity 387952420 s/p bariatric surgery Low back pain 215140458 Major depr essive disorder 753540618 Followed by Dr. Geno Cardona [id number] [facility] Main Office [address] [facility] [address] [place] [address] 06/12/2014 14:01:32 06/12/2014 15:50:43 Low back pain 146369292 Has had 6 back surgeries. Last was [address] Luque. [id number] Main Office [address] [address] 08/25/2014 10:09:07 08/25/2014 11:20:31 Type 2 diabetes mellitus without complication 286861456 Essential hypertension 49177385 Low back pain 377374807 Has had 6 back surgeries. Last was [address] Luque. Obstructiv e sleep apnea syndrome 02598325 [id number] Jason Irizarry MD Main Office [address] [address] 02/27/2015 10:20:53 02/27/2015 11:13:10 Type 2 diabetes mellitus without complication 816598995 E11.9 Essential hypertension 27094037 I10 Major depr essive disorder 470695331 F32.[address] Geno Cardona Screening for malignant neoplasm of breast 917745875 Z12.39 Body mass index 30+ - obesity 612913364 Z68.31 E66.9 s/p bariatric surgery. Continued follow up with Dr. Terrell. Blood in urine 77262164 R31.9 Low back pain 227502225 M54.5 Has had 6 back surgeries. Last was [address] Luque. [id number] Jason Iirzarry MD Main Office [address] [address] 06/28/2015 13:53:13 06/28/2015 14:50:27 Diarrhea 94618323 R19.7 Right lowe r quadrant pain 421650026 R10.31 mild-mod pain c palp, no c/o pain at baseline -- may need GI eval if sxs worse [id number] Jason Irizarry MD Main Office [address] [facility] [address] [place] [address] 08/29/2015 09:34:29 08/29/2015 10:56:41 Adult health examination 568391023 Z00.00 Type 2 margareth betes mellitus without complication 816204777 E11.9 Essential hypertension 74817617 I10 Major depr essive disorder 763153606 F32.9 Screening for malignant neoplasm of breast 996894091 Z12.39 Low back pain 010299038 M54.5 Has had 6 back surgeries. Last was [address] Luque. Shoulder pain 23166132 M 25.512 Knee pain 64745618 M25.5 61 [id number] Jason Irizarry MD Main Office [address] [address] [place] [address] 01/29/2016 10:36:51 01/29/2016 11:20:06 Lumbar radiculopathy 473440826 M54.16 Left L3 distributi on. New symptoms in patient with longstandi ng chronic LBP [id number] Jason Irizarry MD Main Office [address] [address] [place] [address] 03/05/2016 08:38:37 03/05/2016 09:56:35 Type 2 diabetes mellitus without complication 493351876 E11.9 Essential hypertension 51779966 I10 Low back pain 031962011 M54.5 Has had 6 back surgeries. Last was [address] Luque. [id number] Jason Irizarry MD Main Office [address] [address] [place] [address] 03/14/2016 14:11:21 03/14/2016 15:21:39 Pre-surgery evaluation 163877228 Z01.818 Leukocytes in urine 2757 86110 R82.71 Type 2 margareth betes mellitus without complication 863568063 E11.9 Essential hypertension 48615639 I10 Obstructiv e sleep apnea syndrome 99278215 G47.33 [id number] Meme Fernandez Main Office [address] [address] [place] [address] 05/05/2016 12:40:09 05/05/2016 14:03:25 Transition of care 4117775525 105 Z75.8 will attempt to get labs from snf for completene ss / comparison History of excision of lamina of lumbar vertebra for decompression of spinal cord 989953504 Z98.890 and fusion 04/04/[address] Luque ----- s/p surgery x 2 and then fluid aspiration - cont. f/u c him Essential hypertension 23322055 I10 stable off meds s/p gastric sleeve Type 2 margareth betes mellitus without complication 303141916 E11.9 fsbs stable lately Obstructiv e sleep apnea syndrome 34401976 G47.33 Leukocytosis 879637173 D 72.829 pt states had elevated wbc ct and mild post op anemia - will check cbc [id number] Jason Irizarry MD Main Office [address] [facility] [address] [place] [address] 07/02/2016 13:46:40 07/02/2016 14:50:16 Insomnia 260432598 G47.00 Fatigue 41854059 R53.83 Loss of appetite 9339417 6 R63.0 Fever 968626898 R50.9 [id number] Jason Irizarry MD Main Office [address] [facility] [address] [place] [address] 07/30/2016 12:42:31 07/30/2016 13:39:57 Chronic pain syndrome 687901792 G89.4 Dysuria 93650208 R30.0 Type 2 margareth betes mellitus 96873046 E11.9 Screening for malignant neoplasm of breast 773215697 Z12.39 Insomnia 857441077 G47.0 0 [id number] Eric Castillo MD Main Office [address] [facility] [address] [place] [address] 08/29/2016 12:17:56 08/29/2016 13:50:56 Microcytic anemia 521437351 D50.9 Check stool for occult blood at . Test iron and retest CBC. Pt. will return for lab f/u and will determine if GI referral is needed. Essential hypertension 78903022 I10 Lower sodium and caffeine. Test BP in 1 week. [id number] Jason Irizarry MD Main Office [address] [facility] [address] [place] [address] 08/30/2016 10:26:06 08/30/2016 10:27:27 Screening for malignant neoplasm of colon 755602980 Z12.11 [id number] Jason Irizarry MD Main Office [address] [facility] [address] [place] [address] 09/05/2016 09:54:11 09/05/2016 10:35:40 Anemia due to unknown mechanism 09908101 D64.9 Pt has been taking her iron 325 mg supplement s once a day. Will try BID and repeat CBC and iron in 4-6 weeks. Essential hypertension 40227434 I10 Pt's blood pressure is still elevated on today's visit. Pt will be started on an ACEi. Pt was educated on continuing to limit her caffeine and salt intake as well as to exercise to lower her bp. Return with BP readings from home in 4 weeks. [id number] Jason Irizarry MD Main Office [address] [facility] [address] [place] [address] 10/01/2016 10:23:51 10/01/2016 11:33:04 Anemia due to unknown mechanism 29092560 D64.9 Pt has been taking iron 325 mg supplement s BID- Hbg remains low, but increased since last check in August- Iron levels, iron-marisol ng, and iron % sat have all improved and currently WNL- Continue with iron supplement - Recheck CBC again before next physical in one month- Last colonoscop y in 2012 essentiall y normal, f/u colonoscop y was recommende d in 10 yrs from previous Essential hypertension 84562453 I10 BP is stable on lisinopril 10mg, which was started in August 2016- Pt will continue to limit her caffeine and salt intake- Pt encouraged to monitor BP at home- Pt has not been cleared by surgeon to exercise, but she plans to continue exercising BHAVIN- Pt has annual physical c Dr. Irizarry in one month- BP should be re-checked Needs infl uenza immunization 544796155 Z23 - Pt will receive flu shot today Body mass index 30+ - obesity 847254930 Z68.30 - Pt will continue to loss weight through portion control- Pt is unable to exercise at this time due to extensive back surgery which she is still covering from [id number] Jason Irizarry MD Main Office [address] [facility] [address] [place] [address] 11/03/2016 12:37:50 11/03/2016 14:56:18 Adult health examination 649237952 Z00.00 Type 2 margareth betes mellitus without complication 211831166 E11.9 Body mass index 30+ - obesity 712479414 Z68.31 E66.9 s/p bariatric surgery. Continued follow up with Dr. Terrell. Spinal coy nosis of lumbar region 94105908 M48.06 Major depr essive disorder 843741440 F32.9 Still with residual symptoms. followed by psychiatry Chronic pain syndrome 37 2401370 G89.4 stable off of opioids. Essential hypertension 04411239 I10 STable on present medication s. Obstructiv e sleep apnea syndrome 99037951 G47.33 Stable off of treatment after weight loss (bariatric surgery) [id number] Jason Irizarry MD Main Office [address] [address] [place] [address] 05/01/2017 10:25:14 05/01/2017 12:07:41 Diabetic peripheral neuropathy 480391793 E11.40 Screening for malignant neoplasm of breast 733594076 Z12.31 last done 2008; refuses Hepatitis C screening 41 3517359 Z11.59 Essential hypertension 70212745 I10 STable on present medication s. Spinal coy nosis of lumbar region 91442516 M48.061 Obstructiv e sleep apnea syndrome 35771223 G47.33 Stable off of treatment after weight loss (bariatric surgery) Polyneuropathy 48521566 A69.22 Obesity 999732540 E66.9 Body mass index 30+ - obesity 598952535 Z68.30 s/p bariatric surgery. Continued follow up with Dr. Terrell. [id number] Meme Fernandez Main Office [address] [address] [place] [address] 08/22/2017 10:26:28 08/22/2017 11:25:44 Contusion of lower limb 05395551 S80.12XA [facility] ed risk for falls 571764833 Z91.81 Fall W18.2XXA [id number] Jason Irizarry MD Main Office [address] [address] [place] [address] 11/06/2017 10:02:23 11/06/2017 11:45:45 Diabetic peripheral neuropathy 353245952 E11.40 Adult heal th examination 308931477 Z00.00 Needs infl uenza immunization 630281084 Z23 Hyperlipidemia 24079208 E78.5 Body mass index 30+ - obesity 282477434 E66.01 Z68.35 s/p bariatric surgery. Continued follow up with Dr. Terrell. Muscle pain 22616936 M79 .1 Mild persi stent allergic asthma 8435222302 1262947 J45.30 [id number] Meme Fernandez Main Office [address] [facility] [address] [place] [address] 05/24/2018 14:09:52 05/24/2018 15:24:14 Type 2 diabetes mellitus without complication 615237423 E11.9 Diabetic p eripheral neuropathy 012081526 E11.40 Body mass index 30+ - obesity 327075869 E66.01 s/p bariatric surgery. Continued follow up with Dr. Terrell. [id number] Meme Fernandez Main Office [address] [facility] [address] [place] [address] 11/17/2018 10:06:59 11/17/2018 11:32:24 Adult health examination 237552839 Z00.00 Pt is in good general health. Social and family history reviewed. Immunizati ons reviewed, administer ed the flu shot. She is upt to date on dental and eye providers, mammogram --pt refuses, aware we could be missing early or nonpalpabl e breast cancer. Pt states colon up to date - will get report , Reviewed diet and exercise. Needs infl uenza immunization 805202873 Z23 Body mass index 30+ - obesity 544042643 Z68.36 pt tries to eat healthy. She has had gastric bypass in the past. Hard to exercise due to chronic disabling back pain. Major depr essive disorder 342103824 F32.9 seeing psychiatri and is on TCA, currently stable Essential hypertension 65508182 I10 on lisinopril , BP at goal Hyperglycemia 02431124 R 73.9 Myalgia/my ositis - multiple 431682425 M79.10 followp in 6 weeks Paresthesi a of upper limb 39130367 R20.2 Obesity 217351142 E66.9 [id number] Margareth Krustchristophe Main Office [address] [facility] [address] [place] [address] 12/30/2018 13:01:11 12/30/2018 13:44:25 Pre-surgery evaluation 319179590 Z01.818 Patient is at low risk for cardiopulm onary complicati ons with planned procedure based on comorbidit ies, good exertional tolerance and overall procedure risk. She has tolerated general anesthesia without problems in the past. Patient advised to avoid aspirin, supplement s and NSAIDS for 7 days prior. May proceed to scheduled surgery as planned. Luong 0.1% Pt was advised to take all meds the night before and NPO am of surgery by the hospital. EKG done and printed, sinus rhythm, no ischemic changes. Labs pending Pain of le ft shoulder joint 6481467430 6911542 M25.512 surgery due to severely diminished ROM and chronic pain [id number] Fara Cornejo RN Main Office [address] [address] [place] [address] 01/06/2019 09:45:38 01/20/2019 08:54:26 [id number] Jason Irizarry MD Main Office [address] [address] [place] [address] 01/16/2020 10:13:56 01/16/2020 11:50:06 Adult health examination 780479623 Z00.00 Essential hypertension 15098412 I10 STable on present medication s. Hyperlipidemia 92083592 E78.5 Fatigue 77580762 R53.83 Diabetic p eripheral neuropathy 376854607 E11.40 Spinal coy nosis of lumbar region 54848951 M48.061 Obstructiv e sleep apnea syndrome 29461317 G47.33 Stable off of treatment after weight loss (bariatric surgery) Body mass index 30+ - obesity 435560833 E66.01 Z68.35 s/p bariatric surgery. Continued follow up with Dr. Terrell. [id number] Fara Cornejo RN Main Office [address] [address] [place] [address] 03/22/2020 08:51:20 04/10/2020 14:58:58 [id number] Cora Lara PA-C Main Office [address] [address] [place] [address] 10/11/2020 10:08:45 10/11/2020 11:24:52 Pre-surgery evaluation 996187273 Z01.818 Cataract 185540296 H25.0 13 Essential hypertension 37983222 I10 stable bp, cont med as dir, check bmp below Hyperlipidemia 63703969 E78.5 Diabetic p eripheral neuropathy 042035176 E11.40 diet / ex control, pending pe c pcp in a few months will check A1c at pt request d/t wt gain cont f/u c eye md will get podiatry eval - see below Spinal coy nosis of lumbar region 90824541 M48.061 stable, s/p multiple back surgeries Obstructiv e sleep apnea syndrome 50275072 G47.33 cont cpap as dir, cont f/u c sleep med Body mass index 40+ - severely obese 229047124 E66.01 Z68.41 Severe dry skin 56449616 2 L85.3 on feet - no sig help c otc moist lotion - trial c amlactin - encouraged pt to f/u c podiatry - see above [id number] Cora Lara PA-C Main Office [address] [facility] [address] [place] [address] 01/16/2021 09:44:41 01/16/2021 11:13:19 Adult health examination 886003125 Z00.00 next colon 2022, defers pap/mammo Essential hypertension 86026459 I10 stable bp, cont med as dir, check cmp Hyperlipidemia 09461122 E78.5 Diabetic p eripheral neuropathy 819554858 E11.40 diet / ex control p bariatric surgery cont f/u c eye cont f/u c podiatry - pending Fara - your A1c is slowly climbing, but fortunatel y not elevated too high to begin medication for this at this time. Rec. weight loss thru low carb diet and increased aerobic exercise. Spinal coy nosis of lumbar region 37703809 M48.061 stable, s/p multiple back surgeries Obstructiv e sleep apnea syndrome 80965345 G47.33 cont bipap as dir, cont f/u c sleep med Body mass index 40+ - severely obese 087159775 E66.01 Z68.41 Varicella vaccination 68 021244 Z23 Screening for malignant neoplasm of breast 666001305 Z12.39 pt declines mammogram Depressive disorder 3548 2217 F32.0 pending start duloxetine thru psychiatri st - cont see q 3 months, no see therapist Severe dry skin 26756219 2 L85.3 sig better c amlactin - encouraged pt to f/u c podiatry - see above [id number] Cora Lara PA-C Main Office [address] [place] [address] 07/04/2021 09:43:36 07/04/2021 10:58:22 Pre-surgery evaluation 126228184 Z01.818 Pain of ri ght shoulder joint 0104327247 8952487 M25.511 Essential hypertension 27295580 I10 bp on low side of normal ---- +/- orthostati c - rec cut lis 10mg in half === 5mg qd Depressive disorder 3548 9792 F32.0 stable, cont duloxetine thru psychiatri st - cont see q 3 months, no see therapist Diabetic p eripheral neuropathy 083776948 E11.40 diet / ex control p bariatric surgery cont f/u c eye md cont f/u c podiatry Fara - your A1c is slowly climbing, but fortunatel y not elevated too high to begin medication for this at this time. Rec. weight loss thru low carb diet and increased aerobic exercise.5 . - last A1c 6.2 on 10.11.20 - will get recheck Obstructiv e sleep apnea syndrome 21217293 G47.33 cont bipap as dir, cont f/u c sleep med 5.22 - consider bringing bipap to above procedure Spinal coy nosis of lumbar region 07644032 M48.061 stable, s/p multiple back surgeries - pt has tolerated anesthesia well in the past Body mass index 40+ - severely obese 972729231 E66.01 Z68.41 Psoriatic arthritis 1563 53944 L40.50 cont med as dir, cont f/u c rheum & derm [id number] Cora Lara PA-C Main Office [address] [place] [address] 10/09/2021 08:17:22 10/09/2021 09:37:27 Essential hypertension 37952820 I10 bp & cr stable, cont med as dir Hyperlipidemia 04024283 E78.5 tolerating statin, recheck lipids Diabetic p eripheral neuropathy 484031494 E11.40 diet / ex control p bariatric surgery cont f/u c eye md cont f/u c podiatry Fara - your A1c is slowly climbing, but fortunatel y not elevated too high to begin medication for this at this time. Rec. weight loss thru low carb diet and increased aerobic exercise.8 .22 - last A1c 6.2 - will get recheck Pain of ri ght shoulder joint 8267982518 1508006 M25.511 s/p sx, cont sling/PT as dir, cont f/u c ortho - next month [id number] RACHELL [facility] [address] [facility] [address] [place] [address] 02/19/2022 12:49:57 02/19/2022 14:04:56 COVID-19 657070301 U07.1 hydration, rest, if feeling better quarantine x 5 days then mask for 5 days. If not better after 5 days quarantine for full 10 days. Tylenol/ ibuprofen as needed, OTC cough med as needed. Call/ return for worsening sx or concerns.S top atorvastat in while on paxlovid. Asthma 541193117 J45.90 9 will provide refill inhaler to use as needed Essential hypertension 33878579 I10 Continue current meds [id number] RACHELL Chester Main Office [address] [facility] [address] [place] [address] 02/25/2022 08:28:51 02/25/2022 09:10:09 COVID-19 657310579 U07.1 s/p covid diagnosed on 02/18/22. Pneumonitis 277705306 J1 8.9 will tx for possible secondary infection as she is high risk. Zpak as directed, prednisone burst as directed. hydration, rest, tea with honey, continue albuterol inhaler use.- ED precaution s: Diff breathing, fever, unable to tolerate PO etc. Diabetic p eripheral neuropathy 722538800 E11.40 Essential hypertension 41521637 I10 Continue current meds Obstructiv e sleep apnea of adult 3597554977 103 G47.33 [id number] Cora Lara PA-C Main Office [address] [facility] [place], [place] [address] 03/13/2022 13:02:22 03/13/2022 14:28:25 Adult health examination 288008055 Z00.00 pt defers pap Asthma 622051923 J45.90 9 stable Chronic pain syndrome 37 7237273 G89.4 see below Diabetic p eripheral neuropathy 176448472 E11.40 diet / ex control p bariatric surgery -- Continued follow up with Dr. Terrell. cont f/u c eye cont f/u c podiatry Fara - your A1c is slowly climbing, but fortunatel y not elevated too high to begin medication for this at this time. Rec. weight loss thru low carb diet and increased aerobic exercise.8 .22 - last A1c 6.2 - will get recheck 1.23 - A1c up to 6.4 - pt declines metformin at this time, but will more strongly encourage if a1c cont to climb Hyperlipidemia 84772581 E78.5 lipids nl, cont statin as dir Obstructiv e sleep apnea syndrome 36692438 G47.33 cont bipap as dir, cont f/u c sleep med Psoriatic arthritis 1563 86743 L40.50 cont med as dir, cont f/u c rheum - f/u c derm prn Vitamin D deficiency 347 92063 E55.9 Spinal coy nosis of lumbar region 25771362 M48.061 stable, s/p multiple back surgeries - pt has tolerated anesthesia well in the past Has had 6 back surgeries. Last was [address] Luque. cont hep rec tyl 500mg 1-2 tabs up to 3x/day, reserve naproxen for prn Body mass index 40+ - severely obese 485596200 E66.01 Z68.41 Screening for malignant neoplasm of colon 827431307 Z12.11 Screening for malignant neoplasm of breast 653695693 Z12.39 Iron defic iency anemia 44800986 D50.9 Hypertensi ve renal disease 36978590 I12.9 bp stable Chronic ki dney disease stage 2 378193173 N18.2 Depressive disorder 3548 9007 F32.0 stable, cont duloxetine thru psychiatri st - cont see q 3 months, no see therapist Vitamin B1 2 deficiency (non anemic) 95141535 E53.8 [id number] Cora Lara PA-C Main Office [address] [facility] [address] [place] [address] 08/06/2022 13:00:34 08/06/2022 14:24:14 Diabetic peripheral neuropathy 290193325 E11.40 diet / ex control p bariatric surgery -- Continued follow up with Dr. Terrell. cont f/u c eye md cont f/u c podiatry Fara - your A1c is slowly climbing, but fortunatel y not elevated too high to begin medication for this at this time. Rec. weight loss thru low carb diet and increased aerobic exercise.8 .22 - last A1c 6.2 - will get recheck 1.23 - A1c up to 6.4 - pt declines metformin at this time, but will more strongly encourage if a1c cont to climb 6.23 - A1c stable at 6.3 Gastroesop hageal reflux disease 543155062 K21.9 stable, cont ppi as dir, seen by gi - pending egd/colon in 10.23 Chronic ki dney disease stage 2 437215226 N18.2 Hypertensi ve renal disease 32349204 I12.9 bp stable, cont med as dir Psoriatic arthritis 1563 88798 L40.50 stable - cont med as dir, cont f/u c rheum - f/u c derm prn Iron defic iency anemia 68854683 D50.9 mild, persistent d/t donates blood (platelets ) q o wkcont iron c vit c daily Spinal coy nosis of lumbar region 52716411 M48.061 stable, s/p multiple back surgeries - pt has tolerated anesthesia well in the past Has had 6 back surgeries. Last was [address] Luque. cont hep rec tyl 500mg 1-2 tabs up to 3x/day, reserve naproxen for prn 6.23 - ambulating better c UpWalker [id number] Meme Fernandez Main Office [address] [facility] [address] [place] [address] 12/08/2022 09:53:06 12/08/2022 11:34:13 Needs influenza immunization 200117174 Z23 Spinal coy nosis of lumbar region 48957109 M48.061 stable, s/p multiple back surgeries - pt has tolerated anesthesia well in the past Has had 6 back surgeries. Last was [address] Luque. cont hep rec tyl 500mg 1-2 tabs up to 3x/day, reserve naproxen for prn 6.23 - ambulating better c UpWalker 10. - worse pain lately, will get [facility] eval - to consider neural stimulator meanwhile, cont duloxetine as dir, cont gbn - has been on 900mg tid, but trial c prn m relaxer, cont alt ice/heat, cont salonpas - but rec change to o/n Chronic ki dney disease stage 2 822881626 N18.2 Hypertensi ve renal disease 91018367 I12.9 bp elevated but likely d/t pain, cont med as dir, recheck next month Gastroesop hageal reflux disease 311747217 K21.9 stable, cont ppi as dir, seen by gi - pending egd/colon in 12.08 - had egd = stable, but colon was full of stool - needs repeat next year p double split prep - see below Constipation 53787436 K5 9.00 likely d/t iron qd - but in light of above, rec miralax qd (has been taking ~ wkly lately) == 1/2-1 scoop qd Iron defic iency anemia 48890739 D50.9 mild, persistent d/t donates blood (platelets ) q o wkcont iron c vit c daily10. - see above, encouraged pt to call gi to get f/u colonoscop y in a few months as opposed to 1 year == if recheck labs are normal then stop iron supp, and may need miralax qod instead Red left eye 3886263605 7272964 H57.89 s/p scratched cornea - cont drops as per eye , next f/u next wk [id number] Meme Fernandez Main Office [address] [facility] [address] [place] [address] 01/12/2023 10:06:53 01/12/2023 12:36:20 Hypertensive renal disease 74425392 I12.9 bp elevated but likely d/t pain, cont med as dir, recheck next month 01/12/23: BP stable in office today Diabetic p eripheral neuropathy 522162503 E11.40 diet / ex control p bariatric surgery -- Continued follow up with Dr. Terrell. cont f/u c eye md - last visit 12/08 showing no evidence of diabetic retinopath y cont f/u c podiatry Fara - your A1c is slowly climbing, but fortunatel y not elevated too high to begin medication for this at this time. Rec. weight loss thru low carb diet and increased aerobic exercise.8 . - last A1c 6.2 - will get recheck . - A1c up to 6.4 - pt declines metformin at this time, but will more strongly encourage if a1c cont to climb 6.23 - A1c stable at 6.3 01.12.23 - A1c increased at 6.9, fasting glucose 159 (12/09/22) , resume metformin - pt agrees, start c qd to limit potential SE of diarrhea, advance to bid as cruz Chronic pain syndrome 37 3999899 G89.4 see below Psoriatic arthritis 1563 60048 L40.50 stable - cont humira as dir, cont f/u c rheum - f/u c derm prntreated w/ corticoste roid injections in right first MCP 01.08 - had labs for sjogrens - encouraged pt to f/u c rheum (unsure of results) Obstructiv e sleep apnea syndrome 22026968 G47.33 cont bipap as dir, cont f/u c sleep med Spinal coy nosis of lumbar region 41377599 M48.061 stable, s/p multiple back surgeries - pt has tolerated anesthesia well in the past Has had 6 back surgeries. Last was [address] Luque. cont hep rec tyl 500mg 1-2 tabs up to 3x/day, reserve naproxen for prn 6.23 - ambulating better c UpWalker 12.08 - worse pain lately, will get [facility] pain eval - to consider neural stimulator meanwhile, cont duloxetine as dir, cont gbn - has been on 900mg tid, but trial c prn m relaxer, cont alt ice/heat, cont salonpas - but rec change to o/n 01.08 - [facility] turned pt away, pending neurology referral in [facility] l c increasing cylcobenza monalisa to 10mg since not sleeping well - 5mg am, 5mg afternoon, 10mg qhs Leukocytosis 642832395 D 72.829 pt states had elevated wbc ct and mild post op anemia - will check cbc Dry eyes 369887507 H04.1 23 cont meds, f/u c eye md? d/t underlying sjogrens - encouraged pt to f/u c rheum (see above) Depressive disorder 3548 9007 F32.0 stable, cont duloxetine & bupropion & amitriptyl ine thru psychiatri st - cont see q 3 months, no see therapist Chronic ki dney disease stage 2 375566586 N18.2 [id number] JEANMARIE KOWALSKI Main Office [address] [facility] [address] [place] [address] 02/20/2023 10:02:09 02/20/2023 10:23:15 Upper respiratory infection 29439715 J06.9 x5 days of a productive cough and nasal discharge- no fever, sore throat, ear pain, fatigue, headache, sob, wheezing, n/v/d, or chest pain-no changes in appetite or behavior/e nergy-stea m showers and cough drops provide relief-dis cussed conservati ve measuremen ts to provide relief-lik felicitas a viral URI; lungs were CTAB.-PE was unremarkab le-recomme nded to take tylenol for any discomfort as directed [id number] Meme Fernandez Main Office [address] [place] [address] 04/13/2023 09:40:46 04/13/2023 11:19:11 Adult health examination 846300625 Z00.00 pt defers pap & mammopt had colonoscop y 10.23 - but aborted d/t full of stool - rec recheck 1 yr, encouraged pt to call them sooner - printed colon report for pt Venereal d isease screening 394814684 Z11.3 Z72.89 F03.90 Mild memor y disturbance 457240155 R41.3 Required work up for referral to [facility].1. Imaging: Provider leave the desired imaging order, and delete the other (MRI or CT)2. Labs3. Perform 6CIT or MMSE mother c h/o dementia mid 60s Arthritis of first carpometacarpal joint of right hand [id number] 620867 M13.841 pending see ATC in a few days for likely maurilio injxn - meanwhile, rec trial of thumb spica - printed for pt Hypertensi ve renal disease 98225650 I12.9 bp elevated but likely d/t pain, cont med as dir, recheck next month 01/12/23: BP stable in office today 2.24 - stable Diabetic p eripheral neuropathy 660789703 E11.40 diet / ex control p bariatric surgery -- Continued follow up with Dr. Terrell. cont f/u c eye md - last visit 12/08 showing no evidence of diabetic retinopath y cont f/u c podiatry Fara - your A1c is slowly climbing, but fortunatel y not elevated too high to begin medication for this at this time. Rec. weight loss thru low carb diet and increased aerobic exercise.8 .22 - last A1c 6.2 - will get recheck 1.23 - A1c up to 6.4 - pt declines metformin at this time, but will more strongly encourage if a1c cont to climb 6.23 - A1c stable at 6.3 01.12. - A1c increased at 6.9, fasting glucose 159 (12/09/22) , resume metformin - pt agrees, start c qd to limit potential SE of diarrhea, advance to bid as cruz 2.24 - check pending labs Iron defic iency anemia [id number] D50.9 mild, persistent d/t donates blood (platelets ) q o wkcont iron c vit c daily10.23 - see above, encouraged pt to call gi to get f/u colonoscop y in a few months as opposed to 1 year == if recheck labs are normal then stop iron supp, and may need miralax qod instead 2.24 - no anemia on last labs, but she donates platelets qowk - so take iron/vit c a few times/wk Bone density finding [id number] M85.89 Body mass index 40+ - severely obese [id number] E66.01 Z68.41 Chronic ki dney disease stage 2 [id number] N18.2 Mild major depression, single episode 41192374 F32.0 stable, cont duloxetine & bupropion & amitriptyl ine thru psychiatri st - cont see q 3 months, no see therapist [id number] Cora Lara PA-C Main Office [address] [place] [address] 05/11/2023 10:49:57 05/11/2023 12:07:58 Mild memory disturbance [id number] R41.3 Required work up for referral to Memory Disorder Program.1. Imaging: Provider leave the desired imaging order, and delete the other (MRI or CT)2. Labs3. Perform 6CIT or MMSE mother c h/o dementia mid 60s 3.24 - pending see specialist - gave phone # and encouraged her to call Psoriatic arthritis [phone] L40.50 stable - cont humira as dir, cont f/u c rheum - f/u c derm prntreated w/ corticoste roid injections in right first MCP 11.23 - had labs for sjogrens - encouraged pt to f/u c rheum (unsure of results) 3.24 - cont f/u c ATC - next is tomorrow, pending begin enbrel Spasm of back muscles 20 4223410 M62.830 pt has been on flexeril in past - requests add'l Spinal coy nosis of lumbar region [id number] M48.061 stable, s/p multiple back surgeries - pt has tolerated anesthesia well in the past Has had 6 back surgeries. Last was [address] Luque. cont hep rec tyl 500mg 1-2 tabs up to 3x/day, reserve naproxen for prn 6.23 - ambulating better c UpWalker 10.23 - worse pain lately, will get [facility] - to consider neural stimulator meanwhile, cont duloxetine as dir, cont gbn - has been on 900mg tid, but trial c prn m relaxer, cont alt ice/heat, cont salonpas - but rec change to o/n 11.23 - [facility] turned pt away, pending neurology referral in [facility] l c increasing cyclobenza monalisa to 10mg since not sleeping well - 5mg am, 5mg afternoon, 10mg qhs 3.24 - printed neuro order to call him in [place] [id number] Cora Lara PA-C Main Office [address] [place] [address] 07/09/2023 10:37:44 07/09/2023 12:19:17 Mild memory disturbance [id number] R41.3 Required work up for referral to Memory Disorder Program.1. Imaging: Provider leave the desired imaging order, and delete the other (MRI or CT)2. Labs3. Perform 6CIT or MMSE parents c h/o dementia mid 60s 3.24 - pending see specialist - gave phone # and encouraged her to call 5.24 - printed order for pt - encouraged her to callhad mri headlabs stablemean while, 6cit slightly worse - from 8 to 10 - will give trial of aricept, f/u 6 wks for re-eval Diabetic p eripheral neuropathy [id number] E11.40 diet / ex control p bariatric surgery -- Continued follow up with Dr. Terrell. cont f/u c eye md - last visit 12/08 showing no evidence of diabetic retinopath y cont f/u c podiatry Fara - your A1c is slowly climbing, but fortunatel y not elevated too high to begin medication for this at this time. Rec. weight loss thru low carb diet and increased aerobic exercise.8 .22 - last A1c 6.2 - will get recheck 1.23 - A1c up to 6.4 - pt declines metformin at this time, but will more strongly encourage if a1c cont to climb 6.23 - A1c stable at 6.3 11.27.23 - A1c increased at 6.9, fasting glucose 159 (12/09/22) , resume metformin - pt agrees, start c qd to limit potential SE of diarrhea, advance to bid as cruz 2.24 - check pending labs 5.24 - recheck labs (overdue) Psoriatic arthritis 1563 [id number] L40.50 stable - cont humira as dir, cont f/u c rheum - f/u c derm prntreated w/ corticoste roid injections in right first MCP 11.23 - had labs for sjogrens - encouraged pt to f/u c rheum (unsure of results) 3.24 - cont f/u c ATC - next is tomorrow, pending begin enbrel 5.24 - on embrel x 5-6 wks - minimal help, cont f/u c ATC - rev last ov note 2.24 Spasm of back muscles 20 [id number] M62.830 pt has been on flexeril in past - requests add'l 5.24 - sleeps better on prn m relaxer Spinal coy nosis of lumbar region [id number] M48.061 stable, s/p multiple back surgeries - pt has tolerated anesthesia well in the past Has had 8 back surgeries. Last was [address] Luque. cont hep rec tyl 500mg 1-2 tabs up to 3x/day, reserve naproxen for prn 6.23 - ambulating better c UpWalker 10.23 - worse pain lately, will get [facility] pain eval - to consider neural stimulator meanwhile, cont duloxetine as dir, cont gbn - has been on 900mg tid, but trial c prn m relaxer, cont alt ice/heat, cont salonpas - but rec change to o/n 11.23 - [facility], pending neurology referral in [facility] l c increasing cyclobenza monalisa to 10mg since not sleeping well - 5mg am, 5mg afternoon, 10mg qhs 3.24 - printed neuro order to call him in [place] 5 - advised by [place] neurosurge on to see local neurologis t = but no consult note to review - will attempt to getmeanwhkaye le, will get pmr re-eval = looks like she last saw pssp 2017 = will change to Dr Oneal [id number] Cora Lara PA-C Main Office [address] [facility] [address] [place] [address] 08/17/2023 13:47:25 08/17/2023 15:13:42 Mild memory disturbance [id number] R41.3 Required work up for referral to Memory Disorder Program.1. Imaging: Provider leave the desired imaging order, and delete the other (MRI or CT)2. Labs3. Perform 6CIT or MMSE parents c h/o dementia mid 60s 3.24 - pending see specialist - gave phone # and encouraged her to call 5.24 - printed order for pt - encouraged her to callhad mri headlabs stablemean while, 6cit slightly worse - from 8 to 10 - will give trial of aricept, f/u 6 wks for re-eval 7.24 - printed order for pt - encouraged her to callscored lower on 6cit - tolerating aricept - cont as dir Diabetic p eripheral neuropathy [id number] E11.40 diet / ex control p bariatric surgery -- Continued follow up with Dr. Terrell. cont f/u c eye md - last visit 12/08 showing no evidence of diabetic retinopath y cont f/u c podiatry Fara - your A1c is slowly climbing, but fortunatel y not elevated too high to begin medication for this at this time. Rec. weight loss thru low carb diet and increased aerobic exercise.8 .22 - last A1c 6.2 - will get recheck 1.23 - A1c up to 6.4 - pt declines metformin at this time, but will more strongly encourage if a1c cont to climb 6.23 - A1c stable at 6.3 11.. - A1c increased at 6.9, fasting glucose 159 (12/09/22) , resume metformin - pt agrees, start c qd to limit potential SE of diarrhea, advance to bid as cruz 2.24 - check pending labs .24 - recheck labs (overdue) 7.24 - a1c stable at 6.9 despite use of metformin 750mg bidcont diabetic diet, avoid sweetstria l c adding mounjaro Spinal coy nosis of lumbar region [id number] M48.061 stable, s/p multiple back surgeries - pt has tolerated anesthesia well in the past Has had 8 back surgeries. Last was [address] Luque. cont hep rec tyl 500mg 1-2 tabs up to 3x/day, reserve naproxen for prn 6.23 - ambulating better c UpWalker 10. - worse pain lately, will get [facility] pain eval - to consider neural stimulator meanwhile, cont duloxetine as dir, cont gbn - has been on 900mg tid, but trial c prn m relaxer, cont alt ice/heat, cont salonpas - but rec change to o/n . - [facility] turned [facility], pending neurology referral in [facility] l c increasing cyclobenza monalisa to 10mg since not sleeping well - 5mg am, 5mg afternoon, 10mg qhs 3.24 - printed neuro order to call him in [place] 07.09 - advised by [place] neurosurge on to see local neurologis t = but no consult note to review - will attempt to getmeanwhi le, will get pmr re-eval = looks like she last saw [facility] 2016 = will change to Dr Oneal 7.24 - seen by pmr - had xray - next f/u 8.12 Hyperlipidemia 09249302 E78.5 lipids nl, cont statin as dir [id number] Cora Lara PA-C [facility] [address] [facility] [address] [facility] [place], [place] [address] 11/10/2023 14:23:35 11/11/2023 10:02:02 Obstructive sleep apnea syndrome [id number] G47.33 cont bipap as dir, cont f/u c sleep med Mild neuro cognitive disorder [id number] G31.84 Required work up for referral to Memory Disorder Program.1. Imaging: Provider leave the desired imaging order, and delete the other (MRI or CT)2. Labs3. Perform 6CIT or MMSE parents c h/o dementia mid 60s 3.24 - pending see specialist - gave phone # and encouraged her to call 5.24 - printed order for pt - encouraged her to callhad mri headlabs stablemean while, 6cit slightly worse - from 8 to 10 - will give trial of aricept, f/u 6 wks for re-eval 7.24 - printed order for pt - encouraged her to callscored lower on 6cit - tolerating aricept - cont as dir 9.24 - 6cit down to 6 todaypt never refilled aricept (+fh dementia) - when had eval by specialist s below she was not on itapprecia te geriatric and neuropsych input - - wonder if alprazolam and / or amitriptyl ine is complicati ng her memory issues - they have been prescribed by her psychiatri st x several years - encouraged her to f/u c him, and to slowly taper the dose to help prevent withdrawal see tucker meza ng f/u c Dr. Ortiz on Thursday - she will bring a friend will fwd copy of this note to geriatrics , neuropsych & psychiatri stDrRa Montero - please communicat e back to us upon receipt of this note - advise of your suggestion s as well - thank you Diabetic p eripheral neuropathy [id number] E11.40 diet / ex control p bariatric surgery -- Continued follow up with Dr. Terrell. cont f/u c eye md - last visit 12/08 showing no evidence of diabetic retinopath y cont f/u c podiatry Fara - your A1c is slowly climbing, but fortunatel y not elevated too high to begin medication for this at this time. Rec. weight loss thru low carb diet and increased aerobic exercise.8 .22 - last A1c 6.2 - will get recheck 1.23 - A1c up to 6.4 - pt declines metformin at this time, but will more strongly encourage if a1c cont to climb 6.23 - A1c stable at 6.3 11.27.23 - A1c increased at 6.9, fasting glucose 159 (12/09/22) , resume metformin - pt agrees, start c qd to limit potential SE of diarrhea, advance to bid as cruz 2.24 - check pending labs 5.24 - recheck labs (overdue) 7.24 - a1c stable at 6.9 despite use of metformin 750mg bidcont diabetic diet, avoid sweetstria l c adding mounjaro 9.24 - mounjaro not coveredrec heck A1c p 9.28.24 Spinal coy nosis of lumbar region [id number] M48.061 stable, s/p multiple back surgeries - pt has tolerated anesthesia well in the past Has had 8 back surgeries. Last was [address] Luque. cont hep rec tyl 500mg 1-2 tabs up to 3x/day, reserve naproxen for prn 6.23 - ambulating better c UpWalker 10.23 - worse pain lately, will get [facility] pain eval - to consider neural stimulator meanwhile, cont duloxetine as dir, cont gbn - has been on 900mg tid, but trial c prn m relaxer, cont alt ice/heat, cont salonpas - but rec change to o/n 11.23 - [facility] turned [facility], pending neurology referral in [facility] l c increasing cyclobenza monalisa to 10mg since not sleeping well - 5mg am, 5mg afternoon, 10mg qhs 3.24 - printed neuro order to call him in [place] 5.24 - advised by [place] neurosurge on to see local neurologis t = but no consult note to review - will attempt to getludivina stroud, will get pmr re-eval = looks like she last saw pssp 2017 = will change to Dr Oneal 7.24 - seen by pmr - had xray - next f/u 8.12 9.24 - had lumbar mri - cont f/u c pmr - pending R SI joint injxnappar ently she has not refilled her cyclobenza monalisa for ~ 6 months - so will take off her med list Psoriatic arthritis [id number] L40.50 stable - cont humira as dir, cont f/u c rheum - f/u c derm prntreated w/ corticoste roid injections in right first MCP 11.23 - had labs for sjogrens - encouraged pt to f/u c rheum (unsure of results) 3.24 - cont f/u c ATC - next is tomorrow, pending begin enbrel 5.24 - on embrel x 5-6 wks - minimal help, cont f/u c ATC - rev last ov note 2.24 Mild major depression, single episode [id number] F32.0 stable, cont duloxetine & bupropion & amitriptyl ine thru psychiatri st - cont see q 3 months, no see therapist 9.24 - see mild cognitive impairment above - wonder if alprazolam and / or amitriptyl ine is complicati ng her memory issues - they have been prescribed by her psychiatri st x several years - encouraged her to f/u c him, and to slowly taper the dose(s) to help prevent withdrawal will get therapist clare chow specialist in pain as per neuropsych rec.kim [place] Dr. Montero on [id number] Cora Lara PA-C Main Office [address] [facility] [address] [place] [address] 11/23/2023 10:10:41 11/23/2023 11:28:04 Diabetic peripheral neuropathy [id number] E11.40 diet / ex control p bariatric surgery -- Continued follow up with Dr. Terrell. cont f/u c eye md - last visit 12/08 showing no evidence of diabetic retinopath y cont f/u c podiatry Fara - your A1c is slowly climbing, but fortunatel y not elevated too high to begin medication for this at this time. Rec. weight loss thru low carb diet and increased aerobic exercise.8 . - last A1c 6.2 - will get recheck 1.23 - A1c up to 6.4 - pt declines metformin at this time, but will more strongly encourage if a1c cont to climb 6.23 - A1c stable at 6.3 11.. - A1c increased at 6.9, fasting glucose 159 (12/09/22) , resume metformin - pt agrees, start c qd to limit potential SE of diarrhea, advance to bid as cruz 2.24 - check pending labs 5.24 - recheck labs (overdue) 7.24 - a1c stable at 6.9 despite use of metformin 750mg bidcont diabetic diet, avoid sweetstria l c adding mounjaro 9.24 - mounjaro not coveredrec heck A1c p 9. 10.24 - encouraged pt to check outstandin g labs as directed Asthma [id number] J45.90 9 10.24 - pt requests refill Gastroesop hageal reflux disease [id number] K21.9 stable, cont ppi as dir, seen by gi - pending egd/colon in 12.08 - had egd = stable, but colon was full of stool - needs repeat next year p double split prep - see below . - pt requests refill Mild neuro cognitive disorder [id number] G31.84 Required work up for referral to Memory Disorder Program.1. Imaging: Provider leave the desired imaging order, and delete the other (MRI or CT)2. Labs3. Perform 6CIT or MMSE parents c h/o dementia mid 60s 3.24 - pending see specialist - gave phone # and encouraged her to call 5.24 - printed order for pt - encouraged her to callhad nl mri headlabs stablemean while, 6cit slightly worse - from 8 to 10 - will give trial of aricept, f/u 6 wks for re-eval 7.24 - printed order for pt - encouraged her to callscored lower on 6cit - tolerating aricept - cont as dir 9.24 - 6cit down to 6 todaypt never refilled aricept (+fh dementia) - when had eval by specialist s below she was not on itapprecia te geriatric and neuropsych input - - wonder if alprazolam and / or amitriptyl ine is complicati ng her memory issues - they have been prescribed by her psychiatri st x several years - encouraged her to f/u c him, and to slowly taper the dose to help prevent withdrawal see tucker willispendi vince f/u c Dr. Ortiz on Thursday - she will bring a friend will fwd copy of this note to geriatrics , neuropsych & psychiatri TeodorarRa Montero - please communicat e back to us upon receipt of this note - advise of your suggestion s as well - thank you 12.09 - reviewed geriatrics note - pt states is feeling better, psych lowered amitriptyl ine from 200 to 150mg qhs x past 2 wks --- pt sounds sharper to me today will fwd copy of this note to geriatrics , neuropsych & psychiatri st Spinal coy nosis of lumbar region [id number] M48.061 stable, s/p multiple back surgeries - pt has tolerated anesthesia well in the past Has had 8 back surgeries. Last was [address] Luque. cont hep rec tyl 500mg 1-2 tabs up to 3x/day, reserve naproxen for prn 6.23 - ambulating better c UpWalker 10.23 - worse pain lately, will get [facility] - to consider neural stimulator meanwhile, cont duloxetine as dir, cont gbn - has been on 900mg tid, but trial c prn m relaxer, cont alt ice/heat, cont salonpas - but rec change to o/n 11.23 - [facility], [place] increasing cyclobenza monalisa to 10mg since not sleeping well - 5mg am, 5mg afternoon, 10mg qhs 3.24 - printed neuro order to call him in [place] 5.24 - advised by [place] neurosurge on to see local neurologis t = but no consult note to review - will attempt to alfonso stroud, will get pmr re-eval = looks like she last saw pssp 2016 = will change to Dr Oneal 7.24 - seen by pmr - had xray - next f/u 8.12 9.24 - had lumbar mri - cont f/u c pmr - pending R SI joint injxnappar ently she has not refilled her cyclobenza monalisa for ~ 6 months - so will take off her med list 10.24 - ambulating better c up-walker - did ALS walk c this recently, pending breast ca walk in a few wksPT helpful - stopped/di scharged, cont HEP, pending R SI jt injxn next week - she requests prn m relaxer to help c 'tightness ' = don't take c oxycodone (uses this perhaps 2x/wk for severe pain to help sleep)pend ing eval c specialist in pain psychology (Dr Parson) as per neuropsych rec. will fwd copy of this ov note to PMR Hyperlipidemia 75305682 E78.5 lipids nl, cont statin as dir [id number] Cora VASQUEZC Main Office [address] [facility] [address] [place] [address] 02/22/2024 10:02:36 02/22/2024 11:20:54 Diabetic peripheral neuropathy 619352529 E11.40 diet / ex control p bariatric surgery -- Continued follow up with Dr. Terrell. cont f/u c eye md - last visit 12/08 showing no evidence of diabetic retinopath y cont f/u c podiatry Fara - your A1c is slowly climbing, but fortunatel y not elevated too high to begin medication for this at this time. Rec. weight loss thru low carb diet and increased aerobic exercise.8 .22 - last A1c 6.2 - will get recheck 1.23 - A1c up to 6.4 - pt declines metformin at this time, but will more strongly encourage if a1c cont to climb 6.23 - A1c stable at 6.3 11.27.23 - A1c increased at 6.9, fasting glucose 159 (12/09/22) , resume metformin - pt agrees, start c qd to limit potential SE of diarrhea, advance to bid as cruz 2.24 - check pending labs 5.24 - recheck labs (overdue) 7.24 - a1c stable at 6.9 despite use of metformin 750mg bidcont diabetic diet, avoid sweetstria l c adding mounjaro 9.24 - mounjaro not coveredrec heck A1c p 9.24 10.24 - encouraged pt to check outstandin g labs as directedwi ll get podiatry re-evalcon t f/u c eye Mild neuro cognitive disorder [id number] G31.84 Required work up for referral to Memory Disorder Program.1. Imaging: Provider leave the desired imaging order, and delete the other (MRI or CT)2. Labs3. Perform 6CIT or MMSE parents c h/o dementia mid 60s 3.24 - pending see specialist - gave phone # and encouraged her to call 5.24 - printed order for pt - encouraged her to callhad nl mri headlabs stablemean while, 6cit slightly worse - from 8 to 10 - will give trial of aricept, f/u 6 wks for re-eval 7.24 - printed order for pt - encouraged her to callscored lower on 6cit - tolerating aricept - cont as dir 9.24 - 6cit down to 6 todaypt never refilled aricept (+fh dementia) - when had eval by specialist s below she was not on itapprecia te geriatric and neuropsych input - - wonder if alprazolam and / or amitriptyl ine is complicati ng her memory issues - they have been prescribed by her psychiatri st x several years - encouraged her to f/u c him, and to slowly taper the dose to help prevent withdrawal see tucker willispentiara ng f/u c Dr. Ortiz on Thursday - she will bring a friend will fwd copy of this note to geriatrics , neuropsych & psychiatri TeodorarRa Montero - please communicat e back to us upon receipt of this note - advise of your suggestion s as well - thank you 12.09 - reviewed geriatrics note - pt states is feeling better, psych lowered amitriptyl ine from 200 to 150mg qhs x past 2 wks --- pt sounds sharper to me today will fwd copy of this note to geriatrics , neuropsych & psychiatri st 1.25 - cont f/u c geriatrics in a few weeks Spinal coy nosis of lumbar region [id number] M48.061 stable, s/p multiple back surgeries - pt has tolerated anesthesia well in the past Has had 8 back surgeries. Last was [address] Luque. cont hep rec tyl 500mg 1-2 tabs up to 3x/day, reserve naproxen for prn 6.23 - ambulating better c UpWalker 10.23 - worse pain lately, will get [facility] - to consider neural stimulator meanwhile, cont duloxetine as dir, cont gbn - has been on 900mg tid, but trial c prn m relaxer, cont alt ice/heat, cont salonpas - but rec change to o/n 11.23 - [facility], [place] increasing cyclobenza monalisa to 10mg since not sleeping well - 5mg am, 5mg afternoon, 10mg qhs 3.24 - printed neuro order to call him in [place] 5.24 - advised by [place] neurosurge on to see local neurologis t = but no consult note to review - will attempt to alfonso stroud, will get pmr re-eval = looks like she last saw pss 2016 = will change to Dr Oneal 7.24 - seen by pmr - had xray - next f/u 8. 9.24 - had lumbar mri - cont f/u c pmr - pending R SI joint injxnappar ently she has not refilled her cyclobenza monalisa for ~ 6 months - so will take off her med list 10.24 - ambulating better c up-walker - did ALS walk c this recently, pending breast ca walk in a few wksPT helpful - stopped/di scharged, cont HEP, pending R SI jt injxn next week - she requests prn m relaxer to help c 'tightness ' = don't take c oxycodone (uses this perhaps 2x/wk for severe pain to help sleep)pend ing eval c specialist in pain psychology (Dr Parson) as per neuropsych rec. will fwd copy of this ov note to PMR 1.25 - seen by pain pychologis t - cont f/ucont f/u c PMR Vitamin D deficiency [id number] E55.9 Hypertensi ve renal disease 39194910 I12.9 bp elevated but likely d/t pain, cont med as dir, recheck next month 01/12/23: BP stable in office today 1.25 - bp stable, cont med as dir, pending check labs p visit Chronic ki dney disease stage 2 [id number] N18.2 Hyperlipidemia 03739449 E78.5 lipids nl, cont statin as dir [id number] Cora Lara PA-C Main Office [address] [facility] [address] [place] [address] 04/14/2024 10:20:30 04/14/2024 11:31:24 Adult health examination [id number] Z00.00 pt defers pap & mammopt had colonoscop y 10. - but aborted d/t full of stool - rec recheck 1 yr, encouraged pt to call them sooner - printed colon report for pt had labs done 1.. but [facility] didn't do a1c or lipids Diabetic p eripheral neuropathy 096376841 E11.40 diet / ex control p bariatric surgery -- Continued follow up with Dr. Terrell. cont f/u c eye - last visit 12/08 showing no evidence of diabetic retinopath y cont f/u c podiatry Fara - your A1c is slowly climbing, but fortunatel y not elevated too high to begin medication for this at this time. Rec. weight loss thru low carb diet and increased aerobic exercise.8 .22 - last A1c 6.2 - will get recheck 1.23 - A1c up to 6.4 - pt declines metformin at this time, but will more strongly encourage if a1c cont to climb 6.23 - A1c stable at 6.3 11.27.23 - A1c increased at 6.9, fasting glucose 159 (12/09/22) , resume metformin - pt agrees, start c qd to limit potential SE of diarrhea, advance to bid as cruz 2.24 - check pending labs 5.24 - recheck labs (overdue) 7.24 - a1c stable at 6.9 despite use of metformin 750mg bidcont diabetic diet, avoid sweetstria l c adding mounjaro 9.24 - mounjaro not coveredrec heck A1c p 9.28.24 10.24 - encouraged pt to check outstandin g labs as directedwi ll get podiatry re-evalcon t f/u c eye 2.25 - had labs done 1.6.25 but [facility] didn't do a1c or lipids - recheck a1cnl microalb last month Mild neuro cognitive disorder [id number] G31.84 Required work up for referral to [facility].1. Imaging: Provider leave the desired imaging order, and delete the other (MRI or CT)2. Labs3. Perform 6CIT or MMSE parents c h/o dementia mid 60s 3.24 - pending see specialist - gave phone # and encouraged her to call 5.24 - printed order for pt - encouraged her to callhad mri headlabs stablemean while, 6cit slightly worse - from 8 to 10 - will give trial of aricept, f/u 6 wks for re-eval 7.24 - printed order for pt - encouraged her to callscored lower on 6cit - tolerating aricept - cont as dir 9.24 - 6cit down to 6 todaypt never refilled aricept (+fh dementia) - when had eval by specialist s below she was not on itapprecia te geriatric and neuropsych input - - wonder if alprazolam and / or amitriptyl ine is complicati ng her memory issues - they have been prescribed by her psychiatri st x several years - encouraged her to f/u c him, and to slowly taper the dose to help prevent withdrawal see tucker meza ng f/u c Dr. Ortiz on Thursday - she will bring a friend will fwd copy of this note to geriatrics , neuropsych & psychiatri TeodorarRa Montero - please communicat e back to us upon receipt of this note - advise of your suggestion s as well - thank you 12.09 - reviewed geriatrics note - pt states is feeling better, psych lowered amitriptyl ine from 200 to 150mg qhs x past 2 wks --- pt sounds sharper to me today will fwd copy of this note to geriatrics , neuropsych & psychiatri st 1.25 - cont f/u c geriatrics in a few weeks 2.25 - sig improvemen t in 6cit === normal - congratula marilou pt - cont weaning meds as per geriatrics /psych Spinal coy nosis of lumbar region [id number] M48.061 stable, s/p multiple back surgeries - pt has tolerated anesthesia well in the past Has had 8 back surgeries. Last was [address] Luque. cont hep rec tyl 500mg 1-2 tabs up to 3x/day, reserve naproxen for prn 6.23 - ambulating better c [facility] 10.23 - worse pain lately, will get [facility] eval - to consider neural stimulator meanwhile, cont duloxetine as dir, cont gbn - has been on 900mg tid, but trial c prn m relaxer, cont alt ice/heat, cont salonpas - but rec change to o/n 11.23 - [facility] [place] away, [place] cyclobenza monalisa to 10mg since not sleeping well - 5mg am, 5mg afternoon, 10mg qhs 3.24 - printed neuro order to call him in [place] 5.24 - advised by [place] neurosurge on to see local neurologis t = but no consult note to review - will attempt to alfonso stroud, will get pmr re-eval = looks like she last saw pss 2016 = will change to Dr Oneal 7.24 - seen by pmr - had xray - next f/u 8. 9.24 - had lumbar mri - cont f/u c pmr - pending R SI joint injxnappar ently she has not refilled her cyclobenza monalisa for ~ 6 months - so will take off her med list 10.24 - ambulating better c up-walker - did ALS walk c this recently, pending breast ca walk in a few wksPT helpful - stopped/di scharged, cont HEP, pending R SI jt injxn next week - she requests prn m relaxer to help c 'tightness ' = don't take c oxycodone (uses this perhaps 2x/wk for severe pain to help sleep)pend ing eval c specialist in pain psychology (Dr Parson) as per neuropsych rec. will fwd copy of this ov note to PMR 1.25 - seen by pain psychologi st - cont f/ucont f/u c PMR Vitamin D deficiency [id number] E55.9 stable, cont supp as dir Hypertensi ve renal disease [id number] I12.9 bp elevated but likely d/t pain, cont med as dir, recheck next month 01/12/23: BP stable in office today 1.25 - bp stable, cont med as dir, pending check labs p visit Chronic ki dney disease stage 2 [id number] N18.2 Hyperlipidemia [id number] E78.5 lipids nl, cont statin as dir 2.25 - recheck Cough [id number] R05.9 + h/o pna but no h/o asthmamost likely cough d/t pnd - see below - but back up plan -- if no better next week then check cxrhas prn alb at homecont mucinex Acute sinusitis [id number] J01.90 recommend probiotics while on abxalso rec prn ns spray Body mass index 40+ - severely obese [id number] E66.01 Z68.41 Moderate m ajor depression 586715 F32.1 stable, cont duloxetine & bupropion & amitriptyl ine thru psychiatri st - cont see q 3 months, no see therapist . - see mild cognitive impairment above - wonder if alprazolam and / or amitriptyl ine is complicati ng her memory issues - they have been prescribed by her psychiatri st x several years - encouraged her to f/u c him, and to slowly taper the dose(s) to help prevent withdrawal will get therapist clare chow specialist in pain as per neuropsych rec.pendin g see Dr. Montero on 2. - fairly stable, cont meds, f/u c psych Health Concerns Section Related Observation LastModified by Organization Detai ls LastModified Time None Recorded Concern Status LastModified by Organization Details LastModified Time None Recorded Advance Directives Directive Y: HCP Payers Encounter Date Sequence Insurance Name Policy Number Policy Wilson Covered Member ID Wilson Member ID Guarantor Name 08/17/2023 2 [place] [id number] Fara Crandall Parent [id number] Fara Crandall Parent 08/17/2023 1 [place] [employer] Fara Crandall Parent [id number] T59 Fara Crandall Parent 11/10/2023 2 [place] [id number] Fara Crandall Parent [id number] Fara Crandall Parent 11/10/2023 1 [place] [employer] Fara Crandall Parent [id number] T59 Fara Crandall Parent 11/23/2023 2 [place] [id number] Fara Crandall Parent [id number] Fara Crandall Parent 11/23/2023 1 [place] Fara Crandall Parent [id number] T59 Fara Crandall Parent 02/22/2024 2 [place] [id number] Fara Crandall Parent [id number] Fara Crandall Parent 02/22/2024 1 [place] [facility] G[facility] Fara Crandall Parent [id number] T59 Fara Crandall Parent 04/14/2024 2 [place] [id number] Fara Crandall Parent [id number] Fara Crandall Parent 04/14/2024 1 [place] [facility] [employer] Fara Crandall Parent [id number] T59 Fara Crandall Parent Notes Date Note Type Note Provider Name and Address Organization Details Recorded Time 08/17/2023 text/html here for f/u mul tiple thingsseen by pmr - no note to review - had xray, ? maurilio injxn next [id number] better/lower, tolerating ariceptreviewed recent labs - a1c stable at 6.9 Cora Lara PA-C [address] [address], [place], [address], [facility] 08/17/2023 15:09:15 11/10/2023 text/html TH visit to jordan licona [...] to be used sparingly Cora Lara PA-C [address], [address], [facility] 11/10/2023 20:49:22 11/23/2023 text/html Diabetes F/URepo rted bypatient.Context:seei vince eye doctor regularly; checking feet regularly Associated [...] side effects from medication Cora Lara PA-C [address], [address], [facility] 11/23/2023 21:25:14 02/22/2024 text/html Diabetes F/URepo rted bypatient.Context:seekaye clarke eye doctor regularly; checking feet regularly;not taking aspirin daily Associated Symptoms:no weight gain; no headaches; no increased appetite; no increased urination; no blurred vision Cora Lara PA-C [address], [address], [facility] 02/22/2024 11:24:10 04/14/2024 text/html Medicare Annual Wellness VisitReported bypatient.Diet and Nutrition:discussed portion control; discussed diet improvement Fracture Risk:no history of fractures; no sudden unexplained fractures Physical Activity:does not exercise on a regular basis Depression Risk:see georgina/phq Orientation:no disorientation to time; no disorientation to date; no disorientation to place Concentration and Memory:no decreased concentrating ability; no memory lapses or loss; does not forget words Speech/Motor difficulties:no speech difficulties; no difficulty expressing formulated concepts; no difficulty with fine manipulative tasks; no difficulty writing/copying; no slowed reaction time; does not knock things over when trying to pick them up Hearing:no loss of hearing Vision:worse near Activities of Daily Living:able to bathe with limited or no assistance; able to contol urination and bowels; able to dress with limited or no assistance; able to feed self with limited or no assistance; able to get out of chair or bed with limited or no assistance; able to groom with limited or no assistance; able to toilet with limited or no assistance Instrumental Activities of Daily Living:able to do house work with limited or no assistance; able to grocery shop with limited or no assistance; able to manage medications with limited or no assistance; able to manage money with limited or no assistance; able to prepare meals with limited or no assistance; able to use the phone with limited or no assistance Falls Risk Assessment:no frequent falls while walking; no dizziness/vertigo Home Safety:good lighting in the home Here for AWV Cora Lara PA-C [address], [address], [facility] [place] 04/14/2024 11:42:40 OBGyn Episode No OBEpisode recorded.
--- OUTSIDE RECORDS SUMMARY | 2024-04-21 08:18 | XMS_ITS | Continuity of Care Document ---
Author Organization [facility], Main Office Address [address] [facility] [address] [place] [id number] Care Team Providers Care Manager Of Distribution Name Role Phone JOEL DAO Feeder Tender VALENTÍN MONTERO Psychiatrist KESHIA COOPER Crossing Tender CORA LARA Primary Care Provider CORWIN DAVISON Feeder Tender [phone] RANDI CAMARENA Neurophysiologist [phone] JASON ONEAL Pain Management DANIEL ORTIZ Geriatric Medicine SHADI CARVALHO Neuropsychologist [phone] TRISTON PENA Recruit Instructor Assessment No assessment recorded. Plan of Treatment Reminders Order Date Submit Date Provider Last Modified By Organization Details Last Modified Time Details Appointments Follow Up DM 30 2024 01:00P M Cora Lara PA-C Not available Not available Not available Lab HbA1c (hemoglob in A1c), blood 2024 025 ANDREW [facility] (Centralized Electronic Ordering - All Locations), Patient Can Go To The Location Of Their Choice, 04/14/2024 11:19:51 lipid panel, serum 2024 025 ANDREW [facility] (Centralized Electronic Ordering - All Locations), Patient Can Go To The Location Of Their Choice, 04/14/2024 11:19:50 CK (creatine kinase), total, serum 2024 025 ANDREW [facility] (Centralized Electronic Ordering - All Locations), Patient Can Go To The Location Of Their Choice, [id number] 04/14/2024 11:19:50 Referral nutrition ist/dieti juan carlos referral 2024 025 Not available 04/14/2024 15:53:54 Procedures None recorded. Surgeries None recorded. Imaging XR, chest, 2 view 2024 025 [id number] [facility], [address] [facility], [place], [address], 04/14/2024 11:31:24 Medication Orders amoxicill in 875 mg-potass ium clavulana te 125 mg tablet 2024 025 [id number], [address] [place], [place], [id number], 04/14/2024 11:27:10 Patient Targets Encounter Date Encounter Id Patient Goals Patient Target Last Modified By Organization Details Last Modified Time 04/14/2024 [id number] [facility] goal of Blood Pressure 140 / 90 Not available Not available Not available [facility] goal of Exercise level Not available Not available Not available terminal manager goal of Tobacco Smoking Status Not available Not available Not available terminal manager goal of Excess Body Weight Loss % [...] Modified By Organization Details Last Modified Time 04/14/2024 [id number] starting a weigh t loss plan: care [...] Not available 04/14/2024 11:15:58 Reason for Referral Assembly Line Brazer/dietitian Refer ral for Body mass index 40+ - severely obese Referring Physician: Cora Lara, Internal Medicine, Encounter Date: 04/14/2024 Problems Name Problem SNOMED Code Status Onset Date Resolution Date Notes Provider Name and Address Organization Details Recorded Time Electroc ardiogra m abnormal [id number] Completed 200708/30/2013 RECORDED 10/01/19 08 8:29AM BY DELORIS MILAN MA, ANNOTATI ON/ADDEN DUM MEDINA Rouse [place] - [facility] 6 10:51:32 Acute asthma 816801597 Completed 201208/30/2013 RECORDED 06/25/19 13 2:34PM BY DELORIS MILAN MA, ANNOTATI ON/ADDEN DUM MEDINA Rouse, [facility] 6 10:51:32 Acute bronchit is 94112182 Completed 200708/30/2013 RECORDED 10/01/19 08 8:29AM BY DELORIS MILAN MA, ANNOTATI ON/ADDEN DUM MEDINA Rouse, [facility] 6 10:51:32 Acute sinusiti s 39868655 Completed 201208/30/2013 RECORDED 06/25/19 13 2:34PM BY DELORIS MILAN MA, ANNOTSILVER ON/ADDEN DUM MEDINA Rouse, [facility] 6 10:42:01 Asthma 550548060 Active Not Available [facility] 4 19:50:26 Intrinsi c asthma 347984722 Completed 201108/30/2013 RECORDED 09/04/19 12 12:56PM BY DELORIS MILAN MA, ANNOTSILVER ON/ADDEN DUM MEDINA Rouse, [facility] 6 10:51:32 Screenin g for malignan t neoplasm of breast Completed 201208/30/2013 RECORDED 09/21/19 13 12:45PM BY ARLIN LIGHT MA, ANNOTSILVER ON/ADDEN DUM MEDINA Rouse, [facility] 6 10:51:32 Cellulit is and abscess of face 519058192 Completed 200808/30/2013 RESOLVED DATE: 07/04/19 09; IMPRESSI ON: PT IS IMMUNE SUPPRESS ED WITH HUMIRA FOR RA, TREAT WITH LEVAQUIN ; RECORDED 07/04/19 09 9:11PM BY JORGE Rai NP, ANNOTATI ON/ADDEN DUM MEDINA Rouse, [facility] 6 10:51:32 Chronic pain syndrome 356435770 Active Not Available [facility] 4 19:50:26 Chronic pain syndrome 734662535 Completed 201208/30/2013 RECORDED 03/17/19 13 9:38AM BY DELORIS MILAN MA, ANNOTATI ON/ADDEN DUM MEDINA Rouse [facility] 6 10:51:32 Screenin g for malignan t neoplasm of colon Completed 201108/30/2013 RECORDED 09/04/19 12 12:56PM BY DELORIS MILAN MA, ANNOTSILVER ON/ADDEN DUM MEDINA Rouse [facility] 6 10:51:32 Cough 13621334 Completed 201208/30/2013 RECORDED 06/25/19 13 2:34PM BY DELORIS MILAN MA, ANNOTATI ON/ADDEN DUM MEDINA Rouse [facility] 6 10:51:32 General symptom 564533380 Completed 201108/30/2013 STORY: SIGNIFIC ANT DECREASE IN EXERCISE TOLERANC E WITH TACHYCAR DEANNA.; RECORDED 09/04/19 12 12:56PM BY DELORIS MILAN MA, ANNOTSILVER ON/ADDEN DUM MEDINA Rouse [facility] 6 10:51:32 Depressi ve disorder 03248499 Completed 02/26/2015 Meme miranda [facility] 4 15:15:46 Type 2 diabetes mellitus without complica tion 134262705 Completed 05/01/2017 MEDINA Rouse [facility] 9 11:30:03 Diarrhea 22083390 Completed 201208/30/2013 IMPRESSI ON: RESOLVIN G PER PT. HAD A FORMED STOOL. SHE DID NOT DO THE STOOL TESTING AND WILL HOLD OFF SINCE DOES NOT HAVE LIQUID STOOL.; RECORDED 03/17/19 13 9:35AM BY DELORIS MILAN MA, MIGDALIA ON/ADDEN DUM MEDINA Rouse, [facility] 6 10:42:42 Dysphagi a 11008325 Completed 200708/30/2013 RESOLVED DATE: 01/20/20 08; RECORDED 01/20/20 08 4:23PM BY JORGE Rai NP, MIGDALIA ON/ADDEN DUM MEDINA Rouse, [facility] 6 10:51:32 Edema 839745249 Completed 201208/30/2013 RECORDED 09/21/19 13 12:45PM BY ARLIN LIGHT MA, MIGDALIA ON/ADDEN DUM MEDINA Rouse, [facility] 6 10:51:32 Long-ter m drug therapy Completed 201208/30/2013 RECORDED 05/19/19 13 12:57PM BY DELORIS MILAN MA, MIGDALIA ON/ADDEN DUM MEDINA Rouse, [facility] 6 10:51:32 Gastroes ophageal reflux disease 390737957 Active Not Available [facility] 4 19:50:26 Essentia l hyperten kris 75375902 Completed 03/15/2022 Cora Lara PA-C [address] [facility] [address], [place], [address] , [facility] 3 10:04:39 Exophtha lmos 02499897 Completed 201108/30/2013 RECORDED 09/04/19 12 12:56PM BY DELORIS MILAN MA, MIGDALIA ON/ADDEN DUM MEDINA Rouse, [facility] 6 10:51:32 Influenz a vaccine needed 99396922576 06 Completed 201208/30/2013 RECORDED 10/23/19 13 4:09PM BY AUDIE OLIVARES, OFFICE VISIT MEDINA Rouse, [facility] 6 10:51:32 Tobacco user 041072219 Completed 08/29/2015 MEDINA Rouse, [facility] 6 09:59:57 History of clinical finding in subject 685808074 Completed 01/29/2016 MEDINA Rouse, [facility] 6 10:42:37 Adult health examinat ion Completed 01/29/2016 MEDINA Rouse, [facility] 6 10:42:26 Follow-u p encounte r Completed 201308/30/2013 RECORDED 05/12/19 14 2:21PM BY ANAMARIA RIVERA MA, JUDYATI ON/ADDEN DUM MEDINA Rouse, [facility] 6 10:51:32 Hyperlip idemia 14398129 Active Not Available [facility] 4 19:50:26 Immunosu ppressio n 82366125 Completed 201108/30/2013 RECORDED 04/23/19 12 1:24PM BY MIGDALIA MEZA ON/ADDEN DUM MEDINA Rouse [facility] 6 10:51:32 Kidney stone 67905066 Completed 201108/30/2013 RECORDED 09/04/19 12 12:56PM BY DELORIS MILAN MA, ANNOTATI ON/ADDEN DUM MEDINA Rouse [facility] 6 10:51:32 Laborato ry procedur e performe d 342573203 Completed 201308/30/2013 RECORDED 05/12/19 14 2:21PM BY ANAMARIA RIVERA MA, ANNOTATI ON/ADDEN DUM MEDINA Rouse, [facility] 6 10:51:32 Leukocyt osis 015397639 Completed 201208/30/2013 RECORDED 09/21/19 13 12:45PM BY ARLIN LIGHT MA, ANNOTATI ON/ADDEN DUM MEDINA Rouse, [facility] 6 10:51:32 Spinal stenosis of lumbar region 04870665 Active Not Available [facility] 4 19:50:26 Lyme disease 63420411 Completed 201008/30/2013 RECORDED 02/18/19 11 1:17PM BY JASNO IRIZARRY MD, ANNOTATI ON/ADDEN DUM MEDINA Rouse, [facility] 6 10:51:32 Malaise and fatigue 313603335 Completed 201208/30/2013 RECORDED 12/12/19 13 8:53AM BY DELORIS MILAN MA, ANNOTSILVER ON/ADDEN DUM MEDINA Rouse, [facility] 6 10:51:32 Renewal of prescrip tion Completed 201208/30/2013 RECORDED 05/19/19 13 12:57PM BY DELORIS MILAN MA, ANNOTSILVER ON/ADDEN DUM MEDINA Rouse, [facility] 6 10:51:32 Ulcerati ve rhinitis 80408124 Completed 200808/30/2013 DATE: 07/04/19 09; RECORDED 09/04/19 12 12:56PM BY DELORIS MILAN MA, ANNOTSILVER ON/ADDEN DUM MEDINA Rouse, [facility] 6 10:51:32 Obstruct kaye sleep apnea syndrome 08550943 Completed 06/18/2020 Cora Lara PA-C [address], [place], [address] , [facility] 1 11:29:15 Localize d, primary osteoart hritis of the shoulder region 035055582 Completed 03/15/2022 Cora Lara PA-C [address], [place], [address] , [facility] 3 10:06:07 Bursitis 60103123 Completed 201108/30/2013 RECORDED 09/04/19 12 12:56PM BY DELORIS MILAN MA, ANNOTSILVER ON/ADDEN DUM MEDINA Rouse, [facility] 6 10:51:32 Otitis media 80167947 Completed 200808/30/2013 RESOLVED DATE: 07/04/19 09; RECORDED 07/04/19 09 9:11PM BY JORGE Rai NP, ANNOTATI ON/ADDEN DUM MEDINA Rouse, [facility] 6 10:51:32 Knee pain Completed 200708/30/2013 RECORDED 10/01/19 08 8:30AM BY DELORIS MILAN MA, ANNOTATI ON/ADDEN DUM Maritza miranda, [facility] 7 14:02:00 Peptic ulcer 36185615 Completed 201208/30/2013 RECORDED 03/11/19 13 1:05AM BY JORGE Rai NP, ANNOTSILVER ON/ADDEN DUM MEDINA Rouse, [facility] 6 10:51:32 Gastroin testinal obstruct ion 288587092 Completed 11/04/2016 Jason Irizarry MD [address], [place], [address] , [facility] 7 08:33:12 Persiste nt insomnia 156607680 Active Not Available [facility] 4 19:50:26 Pre-surg asher evaluati on [...] MILAN MA, ANNOTATI ON/ADDEN DUM MEDINA Rouse, [facility] 6 10:51:32 Psoriasi s 6822365 Completed 03/15/2022 Cora Lara PA-C [address], [place], [address] , [facility] 3 10:06:55 Urine finding 629080684 Completed 201208/30/2013 IMPRESSI ON: ADD CULTURE; RECORDED 09/21/19 13 12:45PM BY ARLIN LIGHT MA, ANNOTATI ON/ADDEN DUM MEDINA Rouse, [facility] 6 10:51:32 Acute respirat ory failure 97935890 Completed 201108/30/2013 RECORDED 09/04/19 12 12:56PM BY DELORIS MILAN MA, ANNOTATI ON/ADDEN DUM MEDINA Rouse, [facility] 6 10:51:32 Rheumato id arthriti s 77447106 Completed 11/04/2016 Jason Irizarry MD [address], [place], [address] , [facility] 7 08:33:58 Adult health examinat ion Completed 201108/30/2013 RECORDED 12/16/19 12 9:06AM BY DELORIS MILAN MA, MIGDALIA ON/ADDEN DUM MEDINA Rouse, [facility] 6 10:42:26 Morbid obesity 831119639 Active Not Available [facility] 4 19:50:26 Dyspnea 542922169 Completed 201208/30/2013 RECORDED 09/21/19 13 12:45PM BY ARLIN LIGHT MA, ANNOTATI ON/ADDEN DUM MEDINA Rouse, [facility] 6 10:51:32 Disorder of bursa of shoulder region 25206318 Completed 201208/30/2013 STORY: SHAYAN Javed HAS BEEN FOLLOWED BY DR. RAMACHANDRAN FOR RHEUMATO LOGY. UNDERLYI NG DIAGNOSI S OF RA AND PSORIATI C ARTHRITI S. HAS BEEN ON HUMIRA; RECORDED 09/21/19 13 12:45PM BY ARLIN LIGHT MA, ANNOTSILVER ON/ADDEN DUM MEDINA Rouse, [facility] 6 10:51:32 Conducti on disorder of the heart 87092417 Active Not Available [facility] 4 19:50:26 Administ ration of diphther ia and tetanus vaccine Completed 201208/30/2013 RECORDED 05/19/19 13 12:57PM BY DELORIS MILAN MA, MIGDALIA ON/ADDEN DUM MEDINA Rouse, [facility] 6 10:51:32 Full thicknes s rotator cuff tear 629453890 Completed 201208/30/2013 RECORDED 09/21/19 13 12:45PM BY ARLIN LIGHT MA, ANNOTSILVER ON/ADDEN DUM MEDINA Rouse, [facility] 6 10:51:32 Tobacco dependen ce syndrome 86571039 Completed 201108/30/2013 RECORDED 12/16/19 12 9:07AM BY DELORIS MILAN MA, ANNOTATI ON/ADDEN DUM MEDINA Rouse, [facility] 6 10:51:32 Selene garcia hyperten kris 84088473 Completed 201108/30/2013 RECORDED 09/04/19 12 12:56PM BY DELORIS MILAN MA, ANNOTATI ON/ADDEN DUM Cora Lara PA-C [address] [facility] [address], [place], [address] , [facility] 3 10:04:39 Vitamin D deficien cy 97066792 Active Not Available [facility] 4 19:50:26 Electroc ardiogra m abnormal 307354175 Completed 200709/26/2013 RECORDED 10/01/19 08 8:29AM BY DELORIS MILAN MA, ANNOTATI ON/ADDEN DUM MEDINA Rouse, [facility] 6 10:51:32 Acute asthma 723436953 Completed 201209/26/2013 RECORDED 06/25/19 13 2:34PM BY DELORIS MILAN MA, ANNOTATI ON/ADDEN DUM MEDINA Rouse, [facility] 6 10:51:32 Acute bronchit is 37611116 Completed 200709/26/2013 RECORDED 10/01/19 08 8:29AM BY DELORIS MILAN MA, ANNOTATI ON/ADDEN DUM MEDINA Rouse, [facility] 6 10:51:32 Acute sinusiti s 52454270 Completed 201209/26/2013 RECORDED 06/25/19 13 2:34PM BY DELORIS MILAN MA, ANNOTSILVER ON/ADDEN DUM MEDINA Rouse, [facility] 6 10:42:01 Intrinsi c asthma 216290718 Completed 201109/26/2013 RECORDED 09/04/19 12 12:56PM BY DELORIS MILAN MA, ANNOTATI ON/ADDEN DUM MEDINA Rouse, [facility] 6 10:51:32 Screenin g for malignan t neoplasm of breast Completed 201209/26/2013 RECORDED 09/21/19 13 12:45PM BY ARLIN LIGHT MA, ANNOTSILVER ON/ADDEN DUM MEDINA Rouse, [facility] 6 10:51:32 Cellulit is and abscess of face 204882058 Completed 200809/26/2013 RESOLVED DATE: 07/04/19 09; IMPRESSI ON: PT IS IMMUNE SUPPRESS ED WITH HUMIRA FOR RA, TREAT WITH LEVAQUIN ; RECORDED 07/04/19 09 9:11PM BY JORGE Rai NP, MIGDALIA ON/ADDEN DUM MEDINA Rouse, [facility] 6 10:51:32 Screenin g for malignan t neoplasm of colon Completed 201109/26/2013 RECORDED 09/04/19 12 12:56PM BY DELORIS MILAN MA, MIGDALIA ON/ADDEN DUM MEDINA Rouse, [facility] 6 10:51:32 Cough 98473826 Completed 201209/26/2013 RECORDED 06/25/19 13 2:34PM BY DELORIS MILAN MA, MIGDALIA ON/ADDEN DUM MEDINA Rouse, [facility] 6 10:51:32 General symptom 426157622 Completed 201109/26/2013 STORY: SIGNIFIC ANT DECREASE IN EXERCISE TOLERANC E WITH TACHYCAR DEANNA.; RECORDED 09/04/19 12 12:56PM BY DELORIS MILAN MA, MIGDALIA ON/ADDEN DUM MEDINA Rouse, [facility] 6 10:51:32 Diarrhea 35393665 Completed 201209/26/2013 IMPRESSI ON: RESOLVIN G PER PT. HAD A FORMED STOOL. SHE DID NOT DO THE STOOL TESTING AND WILL HOLD OFF SINCE DOES NOT HAVE LIQUID STOOL.; RECORDED 03/17/19 13 9:35AM BY DELORIS MILAN MA, ANNOTATI ON/ADDEN DUM MEDINA Rouse, [facility] 6 10:42:42 Dysphagi a [id number] Completed 200709/26/2013 RESOLVED DATE: 01/20/20 08; RECORDED 01/20/20 08 4:23PM BY JORGE Rai NP, MIGDALIA ON/ADDEN DUM MEDINA Rouse, [facility] 6 10:51:32 Edema 566547473 Completed 201209/26/2013 RECORDED 09/21/19 13 12:45PM BY ARLIN LIGHT MA, MIGDALIA ON/ADDEN DUM MEDINA Rouse, [facility] 6 10:51:32 Long-ter m drug therapy Completed 201209/26/2013 RECORDED 05/19/19 13 12:57PM BY DELORIS MILAN MA, ANNOTATI ON/ADDEN DUM MEDINA Rouse, [facility] 6 10:51:32 Exophtha laurenceos 82957259 Completed 201109/26/2013 RECORDED 09/04/19 12 12:56PM BY DELORIS MILAN MA, ANNOTATI ON/ADDEN DUM MEDINA Rouse, [facility] 6 10:51:32 Influenz a vaccine needed 16360721628 06 Completed 201209/26/2013 RECORDED 10/23/19 13 4:09PM BY AUDIE OLIVARES, OFFICE VISIT MEDINA Rouse, [facility] 6 10:51:32 Follow-u p encounte r Completed 201309/26/2013 RECORDED 05/12/19 14 2:21PM BY ANAMARIA RIVERA MA, ANNOTATI ON/ADDEN DUM MEDINA Rouse, [facility] 6 10:51:32 Immunosu ppressio n [id number] Completed 201109/26/2013 RECORDED 04/23/19 12 1:24PM BY MIGDALIA MEZA ON/ADDEN DUM MEDINA Rouse, [facility] 6 10:51:32 Kidney stone 39476716 Completed 201109/26/2013 RECORDED 09/04/19 12 12:56PM BY DELORIS MILAN MA, ANNOTATI ON/ADDEN DUM MEDINA Rouse, [facility] 6 10:51:32 Laborato ry procedur e performe d 108694296 Completed 201309/26/2013 RECORDED 05/12/19 14 2:21PM BY ANAMARIA RIVERA MA, ANNOTATI ON/ADDEN DUM MEDINA Rouse, [facility] 6 10:51:32 Leukocyt osis 526705375 Completed 201209/26/2013 RECORDED 09/21/19 13 12:45PM BY ARLIN LIGHT MA, ANNOTATI ON/ADDEN DUM MEDINA Rouse, [facility] 6 10:51:32 Lyme disease 56292538 Completed 201009/26/2013 RECORDED 02/18/19 11 1:17PM BY JASON IRIZARRY MD, ANNOTSILVER ON/ADDEN DUM MEDINA Rouse, [facility] 6 10:51:32 Malaise and fatigue 841998276 Completed 201209/26/2013 RECORDED 12/12/19 13 8:53AM BY DELORIS MILAN MA, ANNOTSILVER ON/ADDEN DUM MEDINA Rouse, [facility] 6 10:51:32 Renewal of prescrip tion Completed 201209/26/2013 RECORDED 05/19/19 13 12:57PM BY DELORIS MILAN MA, ANNOTSILVER ON/ADDEN DUM MEDINA Rouse, [facility] 6 10:51:32 Ulcerati ve rhinitis 27363571 Completed 200809/26/2013 DATE: 07/04/19 09; RECORDED 09/04/19 12 12:56PM BY DELORIS MILAN MA, ANNOTSILVER ON/ADDEN DUM MEDINA Rouse, [facility] 6 10:51:32 Bursitis 94001751 Completed 201109/26/2013 RECORDED 09/04/19 12 12:56PM BY DELORIS MILAN MA, MIGDALIA ON/ADDEN DUM MEDINA Rouse, [facility] 6 10:51:32 Otitis media 46082159 Completed 200809/26/2013 RESOLVED DATE: 07/04/19 09; RECORDED 07/04/19 09 9:11PM BY JORGE Rai NP, MIGDALIA ON/ADDEN DUM MEDINA Rouse, [facility] 6 10:51:32 Knee pain Completed 200709/26/2013 RECORDED 10/01/19 08 8:30AM BY DELORISKARLENE MILAN MA, ANNOTATI ON/ADDEN DUM Maritza Barragan MEDINA miranda, [facility] 7 14:02:00 Peptic ulcer 03018973 Completed 201209/26/2013 RECORDED 03/11/19 13 1:05AM BY JORGE Rai NP, ANNOTATI ON/ADDEN DUM MEDINA Rouse, [facility] 6 10:51:32 Pre-surg asher evaluati on Completed [...] MILAN MA, ANNOTSILVER ON/ADDEN DUM MEDINA Rouse, [facility] 6 10:51:32 Urine finding 763395816 Completed 201209/26/2013 IMPRESSI ON: ADD CULTURE; RECORDED 09/21/19 13 12:45PM BY ARLIN ILGHT MA, ANNOTATI ON/ADDEN DUM MEDINA Rouse, [facility] 6 10:51:32 Acute respirat ory failure 18662320 Completed 201109/26/2013 RECORDED 09/04/19 12 12:56PM BY DELORIS MILAN MA, ANNOTATI ON/ADDEN DUM MEDINA Rouse, [facility] 6 10:51:32 Dyspnea 015901922 Completed 201209/26/2013 RECORDED 09/21/19 13 12:45PM BY ARLIN LIGHT MA, ANNOTATI ON/ADDEN DUM MEDINA Rouse [facility] 6 10:51:32 Disorder of bursa of shoulder region 66604212 Completed 201209/26/2013 STORY: SHAYAN GarciaRa HAS BEEN FOLLOWED BY DR. RAMACHANDRAN FOR RHEUMATO LOGY. UNDERLYI NG DIAGNOSI S OF RA AND PSORIATI C ARTHRITI S. HAS BEEN ON HUMIRA; RECORDED 09/21/19 13 12:45PM BY ARLIN LIGHT MA, MIGDALIA ON/ADDEN DUM MEDINA Rouse [facility] 6 10:51:32 Administ ration of diphther ia and tetanus vaccine Completed 201209/26/2013 RECORDED 05/19/19 13 12:57PM BY DELORIS MILAN MA, MIGDALIA ON/ADDEN DUM MEDINA Rouse [facility] 6 10:51:32 Full thicknes s rotator cuff tear 724959617 Completed 201209/26/2013 RECORDED 09/21/19 13 12:45PM BY ARLIN LIGHT MA, MIGDALIA ON/ADDEN DUM MEDINA Rouse [facility] 6 10:51:32 Tobacco dependen ce syndrome 13025902 Completed 201109/26/2013 RECORDED 12/16/19 12 9:07AM BY DELORIS MILAN MA, MIGDALIA ON/ADDEN DUM MEDINA Rouse [facility] 6 10:51:32 Body mass index 40+ - severely obese 662275702 Completed 02/27/2015 Meme miranda [facility] 3 10:07:59 Acute sinusiti s 05432738 Completed 01/29/2016 MEDINA Rouse [facility] 6 10:42:01 Sinusiti s 75532510 Completed 01/29/2016 MEDINA Rouse, [facility] 6 10:42:32 Body mass index 30+ - obesity 190237279 Completed 03/15/2022 Cora Lara PA-C [address], [place], [address] , [facility] 3 10:03:53 Low back pain 381544012 Completed 03/13/2022 Cora Lara PA-C [address], [place], [address] , [facility] 3 14:00:57 Major depressi ve disorder 654377218 Completed 03/15/2022 Cora Lara PA-C [address] [facility] [address], [place], [address] , [facility] 3 10:05:36 Blood in urine 68935901 Completed 07/02/2016 Maritza miranda [facility] 7 14:02:09 Diarrhea 18271601 Completed 01/29/2016 MEDINA Rouse, [facility] 6 10:42:42 Right lower quadrant pain 489009136 Completed 11/03/2016 MEDINA Rouse, [facility] 7 13:03:20 Ex-smoke r 5004159 Active 2015 Not Available [facility] 4 19:50:27 Shoulder pain 01800414 Completed 07/02/2016 Maritza miranda [facility] 7 14:02:03 Knee pain Completed 07/02/2016 Maritza miranda [facility] 7 14:02:00 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 30572811 Active Not Available [facility] 4 19:50:27 Diabetic peripher al neuropat hy 986535650 Active 2016 Not Available [facility] 4 19:50:26 Vitamin B12 deficien cy (non anemic) 53486063 Active 2017 Not Available [facility] 4 19:50:26 Muscle pain 59224591 Active 2017 Not Available [facility] 4 19:50:27 Type 2 diabetes mellitus 60357351 Completed 201805/24/2018 MEDINA Rouse, [facility] 9 14:25:08 Type 2 diabetes mellitus without complica tion 502368629 Completed 10/12/2018 well controll ed after bariatri c surgery in 12/2013 MEDINA Rouse, [facility] 9 11:30:03 Hypergly cemia 61256013 Completed 201803/15/2022 Cora Lara PA-C [address], [place], [address] , [facility] 3 10:04:55 Obesity 708733670 Completed 201806/18/2020 Fabi Bates RN null, [facility] 1 15:35:04 Obstruct kaye sleep apnea of adult 16477636468 03 Completed 202003/13/2022 Dx: G47.33 (mild) Cora Lara PA-C [address], [place], [address] , [facility] 3 13:58:48 Obstruct kaye sleep apnea syndrome 09854122 Active 2020 Not Available [facility] 4 19:50:27 Severe dry skin 232325527 Active 2020 Not Available [facility] 4 19:50:27 Psoriati c arthriti s 386489911 Active 2021 Not Available [facility] 4 19:50:26 Pain of right shoulder joint 16915665901 423038 Active 2021 Not Available [facility] 4 19:50:26 COVID-19 445112777 Active 2022 Not Available [facility] 4 19:50:27 Pneumoni tis 992819606 Completed 202203/15/2022 Cora Lara PA-C [address], [place], [address] , [facility] 3 10:06:45 Hyperten sive renal disease 76079368 Active 2022 Not Available [facility] 4 19:50:26 Chronic kidney disease stage 2 094241755 Active 2022 Not Available [facility] 4 19:50:26 Iron deficien cy anemia 00353882 Active 2022 Not Available [facility] 4 19:50:27 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 76552976530 59871 Active 2023 Cora Lara PA-C [address], [place], [address] , [facility] 4 10:51:38 Mild memory disturba nce [id number] Completed 202311/23/2023 Cora Lara PA-C [address] [facility] [address], [place], [address] , [facility] 4 11:03:27 Mild major depressi on, single episode 15006368 Active 2023 Meme miranda, [facility] 4 15:15:35 Mild neurocog nitive disorder 655527306 Active 2023 Cora Lara PA-C [address] [facility] [address], [place], [address] , [facility] 4 14:50:45 Notes:Some problems listed i n Documents: #[id number], #[id number], #[id number] could not be added to this patient's chart. Please review these documents and add these problems to the patient's chart manually as needed. Problem Notes None recorded. Procedures Surgical History Date Name Laterality Status Provider Name and Address Organization Details Recorded Time 2023 injection of sacroiliac joint completed Sonia Andrea [facility] 4 10:41:48 2023 diabetic retinopathy screening completed Sonia Andrea [facility] 4 12:36:50 2022 Chronic Pain Assessment completed Kesha Strauss [facility] 3 10:46:00 2022 Colonoscopy completed Sonia Andrea [facility] 3 11:35:01 2022 esophagogastroduodenoscopy completed Issa Andrea [facility] 3 11:35:07 2020 Diabetic Foot Exam (Monofilament) completed Cora Lara PA-C [address] [facility] [address], [address], [facility] 1 21:06:41 2020 polysomnography completed Deloris matias [place] [facility] 1 15:44:34 2020 arthroplasty of left shoulder completed Deloris matias [facility] 1 15:35:54 2019 Orthopedic Surgery completed Deloris matias [facility] 1 15:36:33 2018 injection completed Martita Cooley [facility] 9 10:18:41 2018 Diabetic Foot Exam (Monofilament) completed Deloris matias [facility] 9 14:23:33 2018 release of trigger thumb completed Deloris matias [facility] 9 14:36:23 2017 Diabetic Foot Exam (Monofilament) completed Deloris matias [facility] 8 10:31:14 2017 Glaucoma surgery completed Jason Irizarry MD [address], [place], [address], [facility] 8 11:14:40 2016 Carpal tunnel surgery completed Deloris matias [facility] 8 11:06:27 2016 Nerve surgery completed Jason Irizarry MD [address], [place], [address], [facility] 8 11:46:25 2016 Mini-Cog Test completed Deloris matias [facility] 7 13:00:13 2016 Chronic Pain Assessment completed Deloris matias [facility] 7 12:59:42 2016 Most Recent Mammogram completed Virginia Honeycutt [facility] 9 10:15:24 2016 Other completed Areli Cruz [facility] 7 14:27:22 2016 decompression of lumbar spine completed Deloris matias [facility] 1 15:51:46 2013 Lap sleeve gastrectomy completed Maritza Barragan [facility] 4 13:26:44 2012 Date of Last Colonoscopy completed Maritza Barragan [facility] 5 09:28:05 2008 Mammogram screening completed Deloris matias [facility] 8 11:10:32 Total hysterectomy completed Deloris matias [facility] 7 14:44:54 Back Surgery completed Deloris matias [facility] 8 11:10:06 Cholecystectomy completed Ervinhenry Martinez, [facility] [address], [place], [address], [facility] 4 10:19:07 Hernia Repair completed Kathrin Martinez, [facility] [address], [place], [address], [facility] 4 10:19:07 Imaging Results None recorded. Procedure Notes None recorded. Medical Equipment None Reported. Allergies Allergen ID Allergen Name Allergen Category Reaction Reaction Severity Criticality Documentation Date Start Date Code Code System Note Provider Name and Address Organization Details Recorded Time 49097 adhesive environme nt,medica tion rash Not available Not available 03/14/2016 99760 UNK [facility] 7 14:43:07 6387 Cleocin medicatio n hives itching Not available Not available Not available 08/30/20132013 2 RxNorm [facility] 7 14:42:54 6388 codeine medicatio n Not available Not available Not available 08/30/20132012 2670 RxNorm NAUSE A Not Available [facility] 4 19:50:25 6389 Decadron medicatio n hives itching Not available Not available Not available 08/30/20132013 47487 2 RxNorm [facility] 7 14:42:50 Medications Name Sig [...] 03/25/19 08 9:10PM BY JORGE Rai NP, JUDYATI ON/ADDEN DUM; Not Available Not Available [...] 11 10:15AM BY TARYN SMITH I, MIGDALIA ON/ADDEN DUM;DR. RAMACHANDRAN Not Available Not Available Not [...] 03/25/19 08 9:09PM BY JORGE Rai NP, JUDYATI ON/ADDEN DUM; Not Available Not Available Not Available tramadol 50 mg tablet TAKE 2 TABLETS BY MOUTH THREE TIMES DAILY NEEDED 05/05 completed Not Available Not Available Not Available amitripty line 50 mg tablet Take 25 mg every day by oral route at bedtime. 08/26 /2021 completed for total of 175 mg Not [...] completed RECORDED 08/13/19 11 2:59PM BY MIGDALIA DREW/CHARLEE LUJAN; Not Available Not Available Not Available [...] 08 9:11PM BY JORGE Rai NP, MIGDALIA ON/ADD DUM; Not Available Not Available Not Available cefuroxim e axetil 500 mg tablet TWO TIMES DAILY active RECORDED 10/03/19 11 10:15AM BY MIGDALIA FREEMAN ON/ADD DUM; Not Available Not Available Not Available levofloxa lawrence 500 mg tablet BID 08/28 completed Not Available Not Available Not Available Morphine Sulfate CR 30 mg tablet,ex tended release DAILY 05/25 completed RECORDED 05/26/19 12 9:35AM BY JASON IRIZARRY MD, MIGDALIA ON/ DUM; Not Available Not Available Not Available albuterol sulfate HFA 90 mcg/actua tion aerosol inhaler Inhale 2 puffs every 4 hours by inhalati on route as directed for 30 days. active Not Available Not Available No t Available diltiazem 30 mg tablet DAILY active RECORDED 10/03/19 11 10:15AM BY MIGDALIA FREEMAN ON/ADD DUM; Not Available Not Available Not [...] 08 9:10PM BY JORGE Rai NP, ANNOTATI ON/ DUM; Not Available Not Available Not [...] RECORDED 08/13/19 11 2:59PM BY MIGDALIA DREW ON/;THIS ORDER DISCONTI NUED PER [facility] N. Not Available Not Available Not [...] RECORDED 08/13/19 11 2:59PM BY MIGDALIA DREW ON/ADDANGUS DUM; Not Available Not Available Not Available [...] RECORDED 08/13/19 11 2:59PM BY MIGDALIA DREW ON/ADDANGUS DUM; Not Available Not Available Not Available Fish Oil QD 09/30 completed RECORDED 10/01/19 08 8:33AM BY DELORIS MILAN MA, OFFICE VISIT; Not Available Not Available Not Available Iron (ferrous sulfate) 03/14 completed 2 tablets daily Not Available Not Available Not Available peak flow meter USE DAILY. DIAGNOSI S: ASTHMA (493.90) 08/12 completed RECORDED 08/13/19 11 3:00PM BY MIGDALIA DREW ON/ADDANGUS DUM; Not Available Not Available Not Available [...] 07 1:50PM BY JORGE Rai NP, ANNOTATI ON/ADDEN DUM; Not Available Not Available [...] Not Available Not Available Not Available Fluvirin 8654-7960 45 mcg (15 mcg x 3)/0.5 mL [...] Available Not Available Not Available Afluria Qd (36 mos up)(PF)60 mcg (15 mcg x4)/0.5 [...] and Address Organization Details Last Updated DateTime 161.29 cm 41.3 kg/m2 019896. 39 g 104 /min 97 % 97 % 97.6 [degF] 128 mm[Hg] 83 mm[Hg] Kesha Sands [facility] 5 10:36:59 Social History Question Answer Notes LastModified by Organizat ion Details LastModified Time Tobacco Smoking Status Former Smoker MEDINA Etienne [place] [facility] 10/31/2013 09:58:43 Do You Have An Advance Directive? 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 16+yearssince lastcilauraette Information not available 01/16/2021 Live Alone Or [...] Time Are you able to walk? YESASSIST laila laney Information not available 04/14/2024 Are you able to care for yourself? Yes in 2012 (Eyad) Information not available 07/30/2016 What is your exercise level? Occasional Limited because of back surgery (Sandraleticia) and shoulder problems Information not available 01/16/2020 [...] virus, trivalent, PF 5 completed Not Available [facility] 03/06/2023 19:50:27 Pneumococcal conjugate PCV 13 5 completed Not Available [facility] 03/06/2023 19:50:27 Tdap 5 completed Not Available [facility] 03/06/2023 19:50:27 Influenza, split virus, trivalent, preservative 6 completed Not Available [facility] 03/06/2023 19:50:27 COVID-19, mRNA, LNP-S, PF, 30 mcg/0.3 mL dose 1 completed Not Available [facility] 03/06/2023 19:50:27 COVID-19, mRNA, LNP-S, PF, 30 mcg/0.3 mL dose 1 completed Not Available [facility] 03/06/2023 19:50:27 COVID-19, mRNA, LNP-S, PF, 30 mcg/0.3 mL dose 1 completed Not Available [facility] 03/06/2023 19:50:27 Influenza, split virus, quadrivalent, PF 0 completed Not Available [facility] 03/06/2023 19:50:27 Influenza, split virus, trivalent, preservative 1 completed Not Available [facility] 03/06/2023 19:50:27 zoster recombinant 2 completed Not Available [facility] 03/06/2023 19:50:27 COVID-19, mRNA, LNP-S, PF, 30 mcg/0.3 mL dose, ciarra-sucrose 2 completed Not Available [facility] 03/06/2023 19:50:27 zoster recombinant 1 completed Not Available [facility] 03/06/2023 19:50:27 Influenza, split virus, quadrivalent, PF 9 completed Not Available [facility] 03/06/2023 19:50:27 Influenza, split virus, quadrivalent, PF 7 completed Not Available [facility] 03/06/2023 19:50:27 Influenza, split virus, quadrivalent, PF 8 completed Not Available [facility] 03/06/2023 19:50:27 Influenza, MDCK, quadrivalent, PF 2 completed Not Available [facility] 03/06/2023 19:50:27 COVID-19, mRNA, LNP-S, PF, ciarra-sucrose, 30 mcg/0.3 mL 4 completed Kesha Strauss [facility] 04/14/2024 10:31:13 Influenza, high-dose, trivalent, PF 4 completed MEDINA E[place] [facility] 04/14/2024 10:31:13 Influenza, split virus, trivalent, PF 4 completed Not Available [facility] 03/05/2019 02:21:58 pneumococcal polysaccharide PPV23 6 completed Not Available [facility] 03/06/2023 19:50:27 pneumococcal polysaccharide PPV23 9 completed Not Available [facility] 03/06/2023 19:50:27 Influenza, split virus, trivalent, preservative 6 completed Not Available [facility] 03/06/2023 19:50:27 Td (adult), 2 Lf tetanus toxoid, preservative free, adsorbed 7 completed Not Available [facility] 03/06/2023 19:50:27 Influenza, split virus, trivalent, preservative 7 completed Not Available [facility] 03/06/2023 19:50:27 Influenza, split virus, trivalent, preservative 8 completed Not Available [facility] 03/06/2023 19:50:27 Influenza, split virus, trivalent, preservative 9 completed Not Available [facility] 03/06/2023 19:50:27 Influenza, split virus, trivalent, preservative 0 completed Not Available [facility] 03/06/2023 19:50:27 Influenza, split virus, trivalent, preservative 2 completed Not Available [facility] 03/06/2023 19:50:27 Tdap 3 completed Not Available [facility] 03/06/2023 19:50:27 influenza, seasonal, intradermal, preservative free 3 completed Not Available [facility] 03/06/2023 19:50:27 Influenza, split virus, quadrivalent, PF 3 completed Meme miranda [facility] 12/08/2022 14:44:09 Past Encounters Encounter ID Performer Location Encounter Start Date Encounter Closed Date Diagnosis/Indication Diagnosis SNOMED-CT Code Diagnosis ICD10 Code Diagnosis Note [id number] Cora Lara PA-C Main Office [address] [place], [place] [address] 04/14/2024 10:20:30 04/14/2024 11:31:24 Adult health examination 426466126 Z00.00 pt defers pap & mammopt had colonoscop y 10. - but aborted d/t full of stool - rec recheck 1 yr, encouraged pt to call them sooner - printed colon report for pt had labs done 1.08.10 but [facility] didn't do a1c or lipids Diabetic p eripheral neuropathy 648442470 E11.40 diet / ex control p bariatric [...] microalb last month Mild neuro cognitive disorder 487586333 G31.84 Required work up for referral to [...] /psych Spinal coy nosis of lumbar region 87037334 M48.061 stable, s/p multiple back surgeries - [...] salonpas - but rec change to o/n 11. - [facility] turned pt away, [place] cyclobenza monalisa to 10mg since not sleeping well - 5mg am, 5mg afternoon, 10mg qhs 3.24 - printed neuro order to call him in [place] 5.24 - advised by [place] neurosurge on to see local neurologis t = but no consult note to review - will attempt to getludivina stroud, will get pmr re-eval = looks like she last saw pss 2016 = will change to Dr Oneal 7. - seen by pmr - had xray - next f/u 8 9.24 - had lumbar mri - cont [...] f/u c PMR Vitamin D deficiency 347 08763 E55.9 stable, cont supp as dir Hypertensi ve renal disease 66149281 I12.9 bp elevated but likely d/t pain, cont med as dir, recheck next month 01/12/23: BP stable in office today 1.25 - bp stable, cont med as dir, pending check labs p visit Chronic ki dney disease stage 2 584508062 N18.2 Hyperlipidemia 50159712 E78.5 lipids nl, cont statin as dir 2.25 - recheck Cough 44906730 R05.9 + h/o pna but no h/o asthmamost likely cough d/t pnd - see below - but back up plan -- if no better next week then check cxrhas prn alb at homecont mucinex Acute sinusitis 45683583 J01.90 recommend probiotics while on abxalso rec prn ns spray Body mass index 40+ - severely obese 279519302 E66.01 Z68.41 Moderate m ajor depression 780532 F32.1 stable, cont duloxetine & bupropion & [...] specialist in pain as per neuropsych rec.kim miller see Dr. Montero on 04.12 - fairly stable, cont meds, f/u c psych Health Concerns Section Related Observation LastModified by Organization Detai ls LastModified Time None Recorded Concern Status LastModified by Organization Details LastModified Time None Recorded Payers Encounter Date Sequence Insurance Name Policy Number Policy Wilson Covered Member ID Wilson Member ID Guarantor Name 04/14/2024 2 [place] [id number] Fara Crandall Parent [id number] Fara Crandall Parent 04/14/2024 1 [place] [employer] Fara Crandall Parent [id number] Fara Crandall Parent Notes Date Note Type Note Provider Name and Address Organization Details Recorded Time 04/14/2024 text/html Medicare Annual Wellness VisitReported bypatient.Diet [...] home Here for AWV Cora Lara PA-C [address], [address], [facility] 04/14/2024 11:42:40 OBGyn Episode No OBEpisode recorded.
== END 2024-04-21 08:56 | disposition home or self-care (01) ==
PROVIDERS: PCP Physician Assistant Medical; Visit Provider Internal Medicine Rheumatology
DX: L40.50 Arthropathic psoriasis, unspecified (principal)
CPT/HCPCS: 99214; G2211

== ENCOUNTER → 2024-04-21 08:07 | Outpatient (BNVA) | payer MEDICARE, SELFPAY | PROVIDERS: PCP Physician Assistant Medical; Visit Provider Internal Medicine Rheumatology | DX: L40.50 Arthropathic psoriasis, unspecified (principal); Z79.60 Long term (current) use of unspecified immunomodulators and immunosuppressants; Z79.899 Other long term (current) drug therapy | CPT/HCPCS: 99212 ==

== ENCOUNTER 2024-07-26 08:14 | Outpatient (AMB) | payer MEDICARE, SELFPAY ==
[2024-07-26 08:17] VITALS: BP 120/80; PULSE 105; O2SAT 98; BMI 41.2
--- NOTE | 2024-07-26 08:17 | A.OFFVIS_ITS ---
Vital Signs 07/26/24 08:17 Height 5 ft 2 in Weight 225 lb 6 oz BMI 41.2 BP 120/80 Pulse 105 H Pulse Source Pulse Oximeter Pulse Oximetry (%) 98 Oxygen Delivery Method Room Air Intake Visit Reasons: 3 Months Intake Note: Patient presents today for patriotic arthritis. Allergies dexamethasone [From Decadron] Allergy (Intermediate, Verified 07/26/24 08:18) Itchy rash medical tapes Adverse Reaction (Mild, Uncoded 01/21/24 11:11) Rash HPI HPI 3 Months: Details: Prednisone course lasted a week after she completed it with resolution of pain and swelling. She had improved function. She has swelling in her hands again with reduced function. Right knee is swollen. No recent infections. She did n ot receive financial paperwork for assistance program for Cosentyx. PA approved by [employer] is over 1800 dollars a month, which patient can not afford. She had to file for bankruptcy because her mortgage payment to increased and she could not afford groceries as she was charging her credit cards. [facility] Medical History Psoriatic arthritis Low back pain Bilateral cataracts FH: cholecystectomy Ulnar nerve compression Surgical History History of hysterectomy S/P tonsillectomy Previous back surgery Physical Exam Vital Signs: Last Vital Signs Pulse 105 H 07/26/24 08:17 BP 120/80 07/26/24 08:17 Pulse Ox 98 07/26/24 08:17 Oxygen Delivery Method Room Air 07/26/24 08:17 BMI result Body Mass Index 41.2 Const Other: General: Comfortable CVS: RRR Respiratory: clear to auscultation bilaterally. Good respiratory effort Skin: Plaque psoriasis present on bilateral extensor elbows MSK: Synovitis of right IP, 3rd PIP and left 2-3rd MCP with tenderness. All PIPs and wrists tender. Tender shoulders. R knee synovitis. She is unable to coater operator her hands. Shoulder abduction 160 degrees bilateral. Knee flexion is limited. No tenderness of ankles or MTPs. Assessment & Plan Assessment & Plan (1) Psoriatic arthritis: Comment: Psoriatic arthritis is uncontrolled. She is off of Enbrel. She has had treatment failure on Enbrel and Humira. Cosentyx has been approved but she has a high co-pay, which she can not afford at this time. She had temporary benefit with improved function with prednisone in his willing to try it again as a bridge to starting DMARD therapy. Rheumatology history: Diagnosed in 2006. Secondary treatment failure with Humira and Enbrel (03/2023) Code(s): L40.50 - Arthropathic psoriasis, unspecified Category: Medical Plan: Labs for disease and baseline prior to initiating Cosentyx ordered. Cosentyx financial assistance program paperwork given to patient. She will follow up with our office within 30 days for update. she will need nurse visit for teaching 1st dose administration in office and labs ordered a month after starting Cosentyx: CBC, creatinine, AST and ALT. I will consider Xeljanz if she does not get approved for financial assistance program. She will need lipid panel fasting. Prior history of hyperlipidemia controlled without prior history of KS or stroke. We discussed side effects of Xeljanz this visit Return to clinic in 3 months Medications: Refilled prednisone Take 4 tablets daily 7 days, 3 tablets daily 7 days, 2 tablets daily 7 days, 1 tablet daily 7 days then stop. Take prednisone with food. 5 mg PO DIRECTED 70 tabs 0RF Coding Level of Care Code Est Pt Level 4 (81778) Complex EM visit Add On G2211 Diagnoses Psoriatic arthritis L40.50
--- OUTSIDE RECORDS SUMMARY | 2024-07-26 08:25 | XMS_ITS | Data Portability ---
Author Organization [facility], Main Office Address [address] [facility] [address] [place] [id number] Care Team Providers Care Hunter Name Role Phone JOEL DAO Food Preparation Kitchen Aide [phone] VALENTÍN MONTERO Psychiatrist KESHIA COOPER Oxygen Therapist CORA LARA Primary Care Provider CORWIN DAVISON Food Preparation Kitchen Aide RANDI CAMARENA Neurophysiologist JASON ONEAL Pain Management DANIEL ORTIZ Geriatric Medicine SHADI CARVALHO Neuropsychologist TRISTON PENA Shake Out Worker Assessment Encounter Date Assessment Date Assessment LastModified by Organization Details LastModified Time 11/10/2023 11/10/2023 This service was provided using telemedicine. Patient consented to telephone visit Patient was located in the [facility]. Provider was located in the office. No other persons participated in the telemedicine visit except for the patient unless otherwise indicated here. Total time of visit was 47 minutes. [...] Go To The Location Of Their Choice, [id number] 04/14/2024 11:19:51 lipid panel, serum 2024 025 [...] serum 2024 ANDREW [facility], [address], [place], [address], 02/25/2024 20:06:20 microa lbumin /creat inine, mass [...] Go To The Location Of Their Choice, 11/23/2023 11:22:03 CK (creat ine kinase ), total, serum 2023 024 ANDREW [facility] (Centralized Electronic Ordering - All Locations), Patient Can Go To The Location Of Their Choice, 11/23/2023 11:22:03 HbA1c (hemog lobin A1c), blood 2023 024 ANDREW [facility] (Centralized Electronic Ordering - All Locations), Patient Can Go To The Location Of Their Choice, 11/14/2023 03:06:29 HbA1c (hemog lobin A1c), blood 2023 024 ANDREW [facility] (Centralized Electronic Ordering - All Locations), Patient Can Go To The Location Of Their Choice, 11/14/2023 03:06:27 BMP, serum or plasma 2023 024 ANDREW [facility] (Centralized Electronic Ordering - All Locations), Patient Can Go To The Location Of Their Choice, 11/14/2023 03:06:28 Referral nutrit ionist /dieti juan carlos referr pr 2024 025 [email or web address] Not available 04/14/2024 15:53:54 podiat rist referr pr 2024 025 laney Baca DPM, [address] [place], [address], 03/26/2024 09:25:27 psycho logist referr pr 2023 024 [email or web address] Chris Parson PHD ([facility]), [address] [place], [address], 11/11/2023 10:02:02 Procedures None record ed. Surgeries None record ed. Imaging XR, chest, 2 view 2024 025 [email or web address] [facility], [address] [place], [address], 04/28/2024 10:45:37 Medication Orders amoxic illin 875 mg-pot assium clavul anate 125 mg tablet 2024 025 [facility] #[id number], [address] [place], [place], [id number], 04/14/2024 11:27:10 albute rol sulfat e HFA 90 mcg/ac tuatio n aeroso l inhale r 2023 024 [facility]-[id number] [facility] #45267, [address], [place], [id number], 11/26/2023 01:14:53 cyclob enzapr ine 5 mg tablet 2023 024 [facility] #49315, [address], [place], [id number], 11/23/2023 11:22:01 pantop razole 40 mg tablet ,delay ed releas e 2023 024 [facility] #11348, [address] [place], [place], [id number], 11/23/2023 11:22:01 Mounja ro 2.5 mg/0.5 mL subcut aneous pen inject or 2023 024 [facility] #21756, [address] [place], [place], [id number], 11/23/2023 10:21:26 Patient Targets Encounter Date Encounter Id Patient Goals Patient Target Last Modified By Organization Details Last Modified Time 08/17/2023 [id number] Ongoing of Microalbumin/Cre atinine Ratio yearly Not [...] goal. pmadden Not available 08/17/2023 14:55:50 11/23/2023 [id number] Ongoing of Microalbumin/Cre atinine Ratio yearly Not [...] goal. 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 pmadden Not available 02/22/2024 11:14:57 04/14/2024 [id number] armature coil winder goal of Blood Pressure 140 / 90 Not available Not available Not available armature coil winder goal of Exercise level Not available Not available Not available nursing home goal of Tobacco Smoking Status Not available Not available Not available nursing home goal of Excess Body Weight Loss % [...] By Organization Details Last Modified Time 08/17/2023 [id number] type 2 diabetes: care instructions pmadden Not available 08/17/2023 15:05:37 Medications (OTC , herbal therapies, supplements) reviewed and reconciled with patient and or caregiver, including potential side effects, drug interactions, instructions, and the consequences of not taking medication. Reviewed potential barriers to medication adherence, such as side effects from medication or cost of medication. pmadden Not available 08/17/2023 14:44:24 11/10/2023 [id number] Medications (OTC , herbal therapies, supplements) reviewed and reconciled with patient and or caregiver, including potential side effects, drug interactions, instructions, and the consequences of not taking medication. Reviewed potential barriers to medication adherence, such as side effects from medication or cost of medication. pmadden Not available 11/10/2023 16:08:31 11/23/2023 [id number] Medications (OTC , herbal therapies, supplements) reviewed and reconciled with patient and or caregiver, including potential side effects, drug interactions, instructions, and the consequences of not taking medication. Reviewed potential barriers to medication adherence, such as side effects from medication or cost of medication. pmadden Not available 11/23/2023 11:21:58 02/22/2024 [id number] encouraged pt to check outstanding labs as directed pmadden Not available 02/22/2024 10:43:29 Medications (OTC , herbal therapies, supplements) reviewed and reconciled with patient and or caregiver, including potential side effects, drug interactions, instructions, and the consequences of not taking medication. Reviewed potential barriers to medication adherence, such as side effects from medication or cost of medication. pmadden Not available 02/22/2024 10:43:45 04/14/2024 [id number] starting a weigh t loss plan: care [...] Cora Lara, Internal Medicine, Encounter Date: 11/10/2023 Front Man Referral for Diab etic peripheral neuropathy Referring Physician: Cora Lara, Internal Medicine, Encounter Date: 02/22/2024 Pelt Dropper/dietitian Refer ral for Body mass index 40+ - severely obese Referring Physician: Cora Lara, Internal Medicine, Encounter Date: 04/14/2024 Results Created Date Observation Date Name Description Value Unit Range Abnormal Flag Note LastModifiedBy Organization Detail LastModifiedTime 08/14/19 24 08/14/2023 CMP14 +LP+H B A1C+A LB RU glucose 115 mg/dL 70-99 above high normal Not Available [facility] ([facility]) [address] [place], [address], 08/15/2023 16:07:03 08/14/19 24 08/14/2023 CMP14 +LP+H B A1C+A LB RU hemoglobin A1C 6.9 % 4.8-5. 6 above high normal Predi abete s: 5.7 - 6.4 Diabe renetta: >6.4 Glyce tawny contr ol for adult s with diabe renetta: <7.0 Not Available [facility] ([facility]) [address] [place], [address], 08/15/2023 16:07:03 08/14/19 24 08/14/2023 CMP14 +LP+H B A1C+A LB RU BUN 10 mg/dL 8-27 Not Available [facility] ([facility]) [address] [place], [address], 08/15/2023 16:07:03 08/14/19 24 08/14/2023 CMP14 +LP+H B A1C+A LB RU creatinine 0.87 mg/dL 0.57-1 .00 Not Available [facility] ([facility]) [address] [place], [address], 08/15/2023 16:07:03 08/14/19 24 08/14/2023 CMP14 +LP+H B A1C+A LB RU eGFR 74 mL/mi n/1.7 3 >59 Not Available [facility] ([facility]) [address] [facility], [place], [address], 08/15/2023 16:07:03 08/14/19 24 08/14/2023 CMP14 +LP+H B A1C+A LB RU BUN/creatini ne ratio 11 12-28 below low normal Not Available [facility] ([facility]) [address] [facility], [place], [address], 08/15/2023 16:07:03 08/14/19 24 08/14/2023 CMP14 +LP+H B A1C+A LB RU sodium 139 mmol/ L 134-14 4 Not Available [facility] ([facility]) [address] [facility], [place], [address], 08/15/2023 16:07:03 08/14/19 24 08/14/2023 CMP14 +LP+H B A1C+A LB RU potassium 4.8 mmol/ L 3.5-5. 2 Not Available [facility] ([facility]) [address] [facility], [place], [address], 08/15/2023 16:07:03 08/14/19 24 08/14/2023 CMP14 +LP+H B A1C+A LB RU chloride 102 mmol/ L 96-106 Not Available [facility] ([facility]) [address] [facility], [place], [address], 08/15/2023 16:07:03 08/14/19 24 08/14/2023 CMP14 +LP+H B A1C+A LB RU carbon dioxide, total 23 mmol/ L 20-29 Not Available [facility] ([facility]) [address] [facility], [place], [address], 08/15/2023 16:07:03 08/14/19 24 08/14/2023 CMP14 +LP+H B A1C+A LB RU calcium 9.3 mg/dL 8.7-10 .3 Not Available [facility] ([facility]) [address] [facility], [place], [address], 08/15/2023 16:07:03 08/14/19 24 08/14/2023 CMP14 +LP+H B A1C+A LB RU protein, total 6.9 g/dL 6.0-8. 5 Not Available [facility] ([facility]) [address] [facility], [place], [address], 08/15/2023 16:07:03 08/14/19 24 08/14/2023 CMP14 +LP+H B A1C+A LB RU albumin 4.1 g/dL 3.9-4. 9 Not Available [facility] ([facility]) [address] [facility], [place], [address], 08/15/2023 16:07:03 08/14/19 24 08/14/2023 CMP14 +LP+H B A1C+A LB RU globulin, total 2.8 g/dL 1.5-4. 5 Not Available [facility] ([facility]) [address] [place], [address], 08/15/2023 16:07:03 08/14/19 24 08/14/2023 CMP14 +LP+H B A1C+A LB RU bilirubin, total 0.2 mg/dL 0.0-1. 2 Not Available [facility] ([facility]) [address] [place], [address], 08/15/2023 16:07:03 08/14/19 24 08/14/2023 CMP14 +LP+H B A1C+A LB RU alkaline phosphatase 65 IU/L 44-121 Not Available [facility] ([facility]) [address] [place], [address], 08/15/2023 16:07:03 08/14/19 24 08/14/2023 CMP14 +LP+H B A1C+A LB RU AST (SGOT) 24 IU/L 0-40 Not Available [facility] ([facility]) [address] [facility], [place], [address], 08/15/2023 16:07:03 08/14/19 24 08/14/2023 CMP14 +LP+H B A1C+A LB RU ALT (SGPT) 31 IU/L 0-32 Not Available [facility] ([facility]) [address] [facility], [place], [address], 08/15/2023 16:07:03 08/14/19 24 08/14/2023 CMP14 +LP+H B A1C+A LB RU cholesterol, total 154 mg/dL 100-19 9 Not Available [facility] ([facility]) [address] [facility], [place], [address], 08/15/2023 16:07:03 08/14/19 24 08/14/2023 CMP14 +LP+H B A1C+A LB RU triglyceride s 162 mg/dL 0-149 above high normal Not Available [facility] ([facility]) [address] [facility], [place], [address], 08/15/2023 16:07:03 08/14/19 24 08/14/2023 CMP14 +LP+H B A1C+A LB RU HDL cholesterol 53 mg/dL >39 Not Available [facility] ([facility]) [address] [facility], [place], [address], 08/15/2023 16:07:03 08/14/19 24 08/14/2023 CMP14 +LP+H B A1C+A LB RU VLDL cholesterol bettie 28 mg/dL 5-40 Not Available [facility] ([facility]) [address] [facility], [place], [address], 08/15/2023 16:07:03 08/14/19 24 08/14/2023 CMP14 +LP+H B A1C+A LB RU LDL chol calc ([facility]) 73 mg/dL 0-99 Not Available [facility] [address] [facility], [place], [address], 08/15/2023 16:07:03 08/14/19 24 08/14/2023 CMP14 +LP+H B A1C+A LB RU LDL calc comment: 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 Not Available [facility] ([facility]) [address] [facility], [place], [address], 08/15/2023 16:07:03 08/14/19 24 08/15/2023 ALBUM IN/CR EAT RATIO , RANDO M UR creatinine, urine 43.9 mg/dL not estab. Not Available [facility] ([facility]) [address] [facility], [place], [address], 08/15/2023 16:07:04 08/14/19 24 08/15/2023 ALBUM IN/CR EAT RATIO , RANDO M UR alb/creat ratio 13 mg/g_ creat 0-29 Marilynn l: 0 - 29 Moder ately incre ased: 30 - 300 Sever felicitas incre ased: >300 Not Available [facility] ([facility]) [address] [facility], [place], [address], 08/15/2023 16:07:04 02/21/19 25 02/22/2024 COMP. METAB OLIC PANEL (14) glucose 90 mg/dL 70-99 normal Not Available [facility] ([facility]) [address] [place], [address], 02/25/2024 20:06:18 02/21/19 25 02/22/2024 COMP. METAB OLIC PANEL (14) BUN 11 mg/dL 8-27 normal Not Available [facility] ([facility]) [address] [facility] [place], [address], 02/25/2024 20:06:18 02/21/19 25 02/22/2024 COMP. METAB OLIC PANEL (14) creatinine 0.86 mg/dL 0.57-1 .00 normal Not Available [facility] ([facility]) [address] [facility] [place], [address], 02/25/2024 20:06:18 02/21/19 25 02/22/2024 COMP. METAB OLIC PANEL (14) eGFR 75 mL/mi n/1.7 3 >59 normal Not Available [facility] ([facility]) [address] [facility] [place], [address], 02/25/2024 20:06:18 02/21/19 25 02/22/2024 COMP. METAB OLIC PANEL (14) BUN/creatini ne ratio 13 12-28 normal Not Available [facility] ([facility]) [address] [facility] [place], [address], 02/25/2024 20:06:18 02/21/19 25 02/22/2024 COMP. METAB OLIC PANEL (14) sodium 138 mmol/ L 134-14 4 normal Not Available [facility] ([facility]) [address] [facility] [place], [address], 02/25/2024 20:06:18 02/21/19 25 02/22/2024 COMP. METAB OLIC PANEL (14) potassium 4.6 mmol/ L 3.5-5. 2 normal Not Available [facility] ([facility]) [address] [facility] [place], [address], 02/25/2024 20:06:18 02/21/19 25 02/22/2024 COMP. METAB OLIC PANEL (14) chloride 99 mmol/ L 96-106 normal Not Available [facility] ([facility]) [address] [facility] [place], [address], 02/25/2024 20:06:18 02/21/19 25 02/22/2024 COMP. METAB OLIC PANEL (14) carbon dioxide, total 24 mmol/ L 20-29 normal Not Available [facility] ([facility]) [address] [facility] [place], [address], 02/25/2024 20:06:18 02/21/19 25 02/22/2024 COMP. METAB OLIC PANEL (14) calcium 9.5 mg/dL 8.7-10 .3 normal Not Available [facility] ([facility]) [address] [facility] [place], [address], 02/25/2024 20:06:18 02/21/19 25 02/22/2024 COMP. METAB OLIC PANEL (14) protein, total 6.9 g/dL 6.0-8. 5 normal Not Available [facility] ([facility]) [address] [facility] [place], [address], 02/25/2024 20:06:18 02/21/19 25 02/22/2024 COMP. METAB OLIC PANEL (14) albumin 4.2 g/dL 3.9-4. 9 normal Not Available [facility] ([facility]) [address] [facility] [place], [address], 02/25/2024 20:06:18 02/21/19 25 02/22/2024 COMP. METAB OLIC PANEL (14) globulin, total 2.7 g/dL 1.5-4. 5 Not Available [facility] ([facility]) [address] [facility] [place], [address], 02/25/2024 20:06:18 02/21/19 25 02/22/2024 COMP. METAB OLIC PANEL (14) bilirubin, total 0.3 mg/dL 0.0-1. 2 normal Not Available [facility] ([facility]) [address] [facility] [place], [address], 02/25/2024 20:06:18 02/21/19 25 02/22/2024 COMP. METAB OLIC PANEL (14) alkaline phosphatase 68 IU/L 44-121 normal Not Available [facility] [address] [facility] [place], [address], 02/25/2024 20:06:18 02/21/19 25 02/22/2024 COMP. METAB OLIC PANEL (14) AST (SGOT) 16 IU/L 0-40 normal Not Available [facility] ([facility]) [address] [facility], [place], [address], 02/25/2024 20:06:18 02/21/19 25 02/22/2024 COMP. METAB OLIC PANEL (14) ALT (SGPT) 16 IU/L 0-32 normal Not Available [facility] ([facility]) [address] [place], [address], 02/25/2024 20:06:18 02/21/19 25 02/25/2024 ALBUM IN/CR EAT RATIO , RANDO M UR creatinine, urine 51.9 mg/dL not estab. normal Not Available [facility] ([facility]) [address] [place], [address], 02/25/2024 20:06:19 02/21/19 25 02/25/2024 ALBUM IN/CR EAT RATIO , RANDO M UR albumin, urine <3.0 ug/mL not estab. Not Available [facility] ([facility]) [address] [place], [address], 02/25/2024 20:06:19 02/21/19 25 02/25/2024 ALBUM IN/CR EAT RATIO , RANDO M UR alb/creat ratio <6 mg/g_ creat 0-29 Marilynn l: 0 - 29 Moder ately incre ased: 30 - 300 Sever felicitas incre ased: >300 Not Available [facility] ([facility]) [address] [facility], [place], [address], 02/25/2024 20:06:19 02/21/19 25 02/23/2024 VITAM IN [...] Endoc rine Socie ty went on to fur er defin e vitam in D insuf ficie ncy as a level betwe en 21 and 29 ng/mL (2). 1. IOM (Inst itute of Medic ine). 2009. Matt ry refer ence intak es for calci um and D. Laurence hunter [place]: [employer] . 2. Chong foster [place], Pau ey [place], Bharti off-F errar i DAY, et al. Evalu ation , treat ment, and preve ntion of vitam in D defic iency : an Endoc rine Socie ty clini bettie pract ice guide line. JCEM. 2010; 96(7) :1911 -30. Not Available [facility] ([facility]) [address] [facility], [place], [address], 02/25/2024 20:06:20 Result Notes None recorded. Problems Name Problem SNOMED Code Status Onset Date Resolution Date Notes Provider Name and Address Organization Details Recorded Time Electroc ardiogra m abnormal 855264944 Completed 200708/30/2013 RECORDED 10/01/19 08 8:29AM BY DELORIS MILAN MA, ANNOTATI ON/ADDEN DUM MEDINA Rouse MA - [facility] 6 10:51:32 Acute asthma 731119084 Completed 201208/30/2013 RECORDED 06/25/19 13 2:34PM BY DELORIS MILAN MA, ANNOTATI ON/ADDEN DUM MEDINA Rouse, [facility] 6 10:51:32 Acute bronchit is 03761555 Completed 200708/30/2013 RECORDED 10/01/19 08 8:29AM BY DELORIS MILAN MA, ANNOTSILVER ON/ADDEN DUM MEDINA Rouse, [facility] 6 10:51:32 Acute sinusiti s 84109287 Completed 201208/30/2013 RECORDED 06/25/19 13 2:34PM BY DELORIS MILAN MA, ANNOTATI ON/ADDEN DUM MEDINA Rouse, [facility] 6 10:42:01 Asthma 144445333 Active Not Available [facility] 4 19:50:26 Intrinsi c asthma 238100835 Completed 201108/30/2013 RECORDED 09/04/19 12 12:56PM BY DELORIS MILAN MA, ANNOTATI ON/ADDEN DUM MEDINA Rouse, [facility] 6 10:51:32 Screenin g for malignan t neoplasm of breast Completed 201208/30/2013 RECORDED 09/21/19 13 12:45PM BY ARLIN LIGHT MA, ANNOTATI ON/ADDEN DUM MEDINA Rouse, [facility] 6 10:51:32 Cellulit is and abscess of face [id number] Completed 200808/30/2013 RESOLVED DATE: 07/04/19 09; IMPRESSI ON: PT IS IMMUNE SUPPRESS ED WITH HUMIRA FOR RA, TREAT WITH LEVAQUIN ; RECORDED 07/04/19 09 9:11PM BY JORGE Rai NP, ANNOTATI ON/ADDEN DUM MEDINA Rouse, [facility] 6 10:51:32 Chronic pain syndrome 996088014 Active Not Available [facility] 4 19:50:26 Chronic pain syndrome 081083676 Completed 201208/30/2013 RECORDED 03/17/19 13 9:38AM BY DELORIS MILAN MA, ANNOTSILVER ON/ADDEN DUM MEDINA Rouse, [facility] 6 10:51:32 Screenin g for malignan t neoplasm of colon Completed 201108/30/2013 RECORDED 09/04/19 12 12:56PM BY DELORIS MILAN MA, ANNOTSILVER ON/ADDEN DUM MEDINA Ruose, [facility] 6 10:51:32 Cough [id number] Completed 201208/30/2013 RECORDED 06/25/19 13 2:34PM BY DELORIS MILAN MA, ANNOTSILVER ON/ADDEN DUM MEDINA Rouse, [facility] 6 10:51:32 General symptom 191603501 Completed 201108/30/2013 STORY: SIGNIFIC ANT DECREASE IN EXERCISE TOLERANC E WITH TACHYCAR MARGARETH.; RECORDED 09/04/19 12 12:56PM BY DELORIS MILAN MA, ANNOTSILVER ON/ADDEN DUM MEDINA Rouse, [facility] 6 10:51:32 Depressi ve disorder [id number] Completed 02/26/2015 Meme miranda [facility] 4 15:15:46 Type 2 diabetes mellitus without complica tion 443259218 Completed 05/01/2017 MEDINA Rouse [facility] 9 11:30:03 Diarrhea 23587473 Completed 201208/30/2013 IMPRESSI ON: RESOLVIN G PER PT. HAD A FORMED STOOL. SHE DID NOT DO THE STOOL TESTING AND WILL HOLD OFF SINCE DOES NOT HAVE LIQUID STOOL.; RECORDED 03/17/19 13 9:35AM BY DELORIS MILAN MA, MIGDALIA ON/ADDEN DUM MEDINA Rouse, [facility] 6 10:42:42 Dysphagi a [id number] Completed 200708/30/2013 RESOLVED DATE: 01/20/20 08; RECORDED 01/20/20 08 4:23PM BY JORGE Rai NP, MIGDALIA ON/ADDEN DUM MEDINA Rouse, [facility] 6 10:51:32 Edema [id number] Completed 201208/30/2013 RECORDED 09/21/19 13 12:45PM BY ARLIN LIGHT MA, MIGDALIA ON/ADDEN DUM MEDINA Rouse, [facility] 6 10:51:32 Long-ter m drug therapy Completed 201208/30/2013 RECORDED 05/19/19 13 12:57PM BY DELORIS MILAN MA, MIGDALIA ON/ADDEN DUM MEDINA Rouse, [facility] 6 10:51:32 Gastroes ophageal reflux disease 916515709 Active Not Available [facility] 4 19:50:26 [facility] hyperten kris 54758493 Completed 03/15/2022 Cora Lara PA-C [address] [facility] [address], [place], [address] , [facility] 3 10:04:39 Exophtha lmos [id number] Completed 201108/30/2013 RECORDED 09/04/19 12 12:56PM BY DELORIS MILAN MA, ANNOTATI ON/ADDEN DUM MEDINA Rouse, [facility] 6 10:51:32 Influenz a vaccine needed [id number] 06 Completed 201208/30/2013 RECORDED 10/23/19 13 4:09PM BY NELIDA OLIVARES, OFFICE VISIT MEDINA Rouse, [facility] 6 10:51:32 Tobacco user [id number] Completed 08/29/2015 MEDINA Rouse, [facility] 6 09:59:57 History of clinical finding in subject [id number] Completed 01/29/2016 MEDINA Rouse, [facility] 6 10:42:37 Adult health examinat ion Completed 01/29/2016 MEDINA Rouse, [facility] 6 10:42:26 Follow-u p encounte r Completed 201308/30/2013 RECORDED 05/12/19 14 2:21PM BY ANAMARIA RIVERA MA, ANNOTATI ON/ADDEN DUM MEDINA Rouse, [facility] 6 10:51:32 Hyperlip idemia 80219522 Active Not Available [facility] 4 19:50:26 Immunosu ppressio n [id number] Completed 201108/30/2013 RECORDED 04/23/19 12 1:24PM BY ALBERTO HAMMONDS, MIGDALIA ON/ADDEN DUM MEDINA Rouse, [facility] 6 10:51:32 Kidney stone [id number] Completed 201108/30/2013 RECORDED 09/04/19 12 12:56PM BY DELORIS MILAN MA, ANNOTSILVER ON/ADDEN DUM MEDINA Rouse, [facility] 6 10:51:32 Laborato ry procedur e performe d [id number] Completed 201308/30/2013 RECORDED 05/12/19 14 2:21PM BY ANAMARIA RIVERA MA, ANNOTATI ON/ADDEN DUM MEDINA Rouse, [facility] 6 10:51:32 Leukocyt osis [id number] Completed 201208/30/2013 RECORDED 09/21/19 13 12:45PM BY ARLIN LIGHT MA, ANNOTATI ON/ADDEN DUM MEDINA Rouse, [facility] 6 10:51:32 Spinal stenosis of lumbar region 75207327 Active Not Available [facility] 4 19:50:26 Lyme disease [id number] Completed 201008/30/2013 RECORDED 02/18/19 11 1:17PM BY JASON IRIZARRY MD, ANNOTATI ON/ADDEN DUM MEDINA Rouse, [facility] 6 10:51:32 Malaise and fatigue 156760800 Completed 201208/30/2013 RECORDED 12/12/19 13 8:53AM BY DELORIS MILAN MA, ANNOTSILVER ON/ADDEN DUM MEDINA Rouse, [facility] 6 10:51:32 Renewal of prescrip tion Completed 201208/30/2013 RECORDED 05/19/19 13 12:57PM BY DELORIS MILAN MA, ANNOTSILVER ON/ADDEN DUM MEDINA Rouse, [facility] 6 10:51:32 Ulcerati ve rhinitis 52759100 Completed 200808/30/2013 DATE: 07/04/19 09; RECORDED 09/04/19 12 12:56PM BY DELORIS MILAN MA, MIGDALIA ON/ADDEN DUM MEDINA Rouse, [facility] 6 10:51:32 Obstruct kaye sleep apnea syndrome 72371138 Completed 06/18/2020 Cora Lara PA-C [address] [facility] [address], [place], [address] , [facility] 1 11:29:15 Localize d, primary osteoart hritis of the shoulder region 494431927 Completed 03/15/2022 Cora Lara PA-C [address] [facility] [address], [place], [address] , [facility] 3 10:06:07 Bursitis 67327991 Completed 201108/30/2013 RECORDED 09/04/19 12 12:56PM BY DELORIS MILAN MA, ANNOTATI ON/ADDEN DUM MEDINA Rouse, [facility] 6 10:51:32 Otitis media 50432760 Completed 200808/30/2013 RESOLVED DATE: 07/04/19 09; RECORDED 07/04/19 09 9:11PM BY JORGE Rai NP, ANNOTATI ON/ADDANGUS DUM MEDINA Rouse, [facility] 6 10:51:32 Knee pain Completed 200708/30/2013 RECORDED 10/01/19 08 8:30AM BY DELORIS MILAN MA, ANNOTATI ON/ADDEN DUM Maritza miranda, [facility] 7 14:02:00 Peptic ulcer 08529794 Completed 201208/30/2013 RECORDED 03/11/19 13 1:05AM BY JORGE Rai NP, ANNOTATI ON/ADDEN DUM MEDINA Rouse, [facility] 6 10:51:32 Gastroin testinal obstruct ion 590438249 Completed 11/04/2016 Jason Irizarry MD [address] [facility] [address], [place], [address] , [facility] 7 08:33:12 Persiste nt insomnia 012558495 Active Not Available [facility] 4 19:50:26 Pre-surg asher evaluati on Completed [...] MILAN MA, ANNOTATI ON/ADDEN DUM MEDINA Rouse, [facility] 6 10:51:32 Psoriasi s [id number] Completed 03/15/2022 Cora Lara PA-C [address], [place], [address] , [facility] 3 10:06:55 Urine finding [id number] Completed 201208/30/2013 IMPRESSI ON: ADD CULTURE; RECORDED 09/21/19 13 12:45PM BY ARLIN LIGHT MA, ANNOTATI ON/ADDEN DUM MEDINA Rouse, [facility] 6 10:51:32 Acute respirat ory failure 98653360 Completed 201108/30/2013 RECORDED 09/04/19 12 12:56PM BY DELORIS MILAN MA, ANNOTATI ON/ADDEN DUM MEDINA Rouse, [facility] 6 10:51:32 Rheumato id arthriti s 35104990 Completed 11/04/2016 Jason Irizarry MD [address], [place], [address] , [facility] 7 08:33:58 Adult health examinat ion Completed 201108/30/2013 RECORDED 12/16/19 12 9:06AM BY DELORIS MILAN MA, ANNOTATI ON/ADDEN DUM MEDINA Rouse, [facility] 6 10:42:26 Morbid obesity 221782290 Active Not Available [facility] 4 19:50:26 Dyspnea 495986148 Completed 201208/30/2013 RECORDED 09/21/19 13 12:45PM BY ARLIN LIGHT MA, ANNOTATI ON/ADDEN DUM MEDINA Rouse, [facility] 6 10:51:32 Disorder of bursa of shoulder region 61518256 Completed 201208/30/2013 STORY: SHAYAN Javed HAS BEEN FOLLOWED BY DR. RAMACHANDRAN FOR RHEUMATO LOGY. UNDERLYI NG DIAGNOSI S OF RA AND PSORIATI C ARTHRITI S. HAS BEEN ON HUMIRA; RECORDED 09/21/19 13 12:45PM BY ARLIN LIGHT MA, ANNOTATI ON/ADDEN DUM MEDINA Rouse, [facility] 6 10:51:32 Conducti on disorder of the heart 14267606 Active Not Available [facility] 4 19:50:26 Administ ration of diphther ia and tetanus vaccine Completed 201208/30/2013 RECORDED 05/19/19 13 12:57PM BY DELORIS MILAN MA, ANNOTATI ON/ADDEN DUM MEDINA Rouse, [facility] 6 10:51:32 Full thicknes s rotator cuff tear 433273887 Completed 201208/30/2013 RECORDED 09/21/19 13 12:45PM BY ARLIN LIGHT MA, ANNOTATI ON/ADDEN DUM MEDINA Rouse, [facility] 6 10:51:32 Tobacco dependen ce syndrome 10150719 Completed 201108/30/2013 RECORDED 12/16/19 12 9:07AM BY DELORIS MILAN MA, ANNOTATI ON/ADDEN DUM MEDINA Rouse, [facility] 6 10:51:32 Essentia l hyperten kris 89026418 Completed 201108/30/2013 RECORDED 09/04/19 12 12:56PM BY DELORIS MILAN MA, ANNOTATI ON/ADDEN DUM Cora Lara PA-C [address] [facility] [address], [place], [address] , [facility] 3 10:04:39 Vitamin D deficien cy 34996621 Active Not Available [facility] 4 19:50:26 Electroc ardiogra m abnormal 159388695 Completed 200709/26/2013 RECORDED 10/01/19 08 8:29AM BY DELORIS MILAN MA, ANNOTATI ON/ADDEN DUM MEDINA Rouse, [facility] 6 10:51:32 Acute asthma 494264195 Completed 201209/26/2013 RECORDED 06/25/19 13 2:34PM BY DELORIS MILAN MA, ANNOTATI ON/ADDEN DUM MEDINA Rouse, [facility] 6 10:51:32 Acute bronchit is 72442920 Completed 200709/26/2013 RECORDED 10/01/19 08 8:29AM BY DELORIS MILAN MA, ANNOTATI ON/ADDEN DUM MEDINA Rouse, [facility] 6 10:51:32 Acute sinusiti s 75123390 Completed 201209/26/2013 RECORDED 06/25/19 13 2:34PM BY DELORIS MILAN MA, ANNOTATI ON/ADDEN DUM MEDINA Rouse, [facility] 6 10:42:01 Intrinsi c asthma 673153525 Completed 201109/26/2013 RECORDED 09/04/19 12 12:56PM BY DELORIS MILAN MA, ANNOTATI ON/ADDEN DUM MEDINA Rouse, [facility] 6 10:51:32 Screenin g for malignan t neoplasm of breast Completed 201209/26/2013 RECORDED 09/21/19 13 12:45PM BY ARLIN LIGHT MA, ANNOTATI ON/ADDEN DUM MEDINA Rouse, [facility] 6 10:51:32 Cellulit is and abscess of face 077528460 Completed 200809/26/2013 RESOLVED DATE: 07/04/19 09; IMPRESSI ON: PT IS IMMUNE SUPPRESS ED WITH HUMIRA FOR RA, TREAT WITH LEVAQUIN ; RECORDED 07/04/19 09 9:11PM BY JORGE Rai NP, ANNOTATI ON/ADDEN DUM MEDINA Rouse, [facility] 6 10:51:32 Screenin g for malignan t neoplasm of colon Completed 201109/26/2013 RECORDED 09/04/19 12 12:56PM BY DELORIS MILAN MA, ANNOTSILVER ON/ADDEN DUM MEDINA Rouse, [facility] 6 10:51:32 Cough 69048272 Completed 201209/26/2013 RECORDED 06/25/19 13 2:34PM BY DELORIS MILAN MA, ANNOTSILVER ON/ADDEN DUM MEDINA Rouse, [facility] 6 10:51:32 General symptom 638537434 Completed 201109/26/2013 STORY: SIGNIFIC ANT DECREASE IN EXERCISE TOLERANC E WITH TACHYCAR MARGARETH.; RECORDED 09/04/19 12 12:56PM BY DELORIS MILAN MA, MIGDALIA ON/ADDEN DUM MEDINA Rouse, [facility] 6 10:51:32 Diarrhea 53699789 Completed 201209/26/2013 IMPRESSI ON: RESOLVIN G PER PT. HAD A FORMED STOOL. SHE DID NOT DO THE STOOL TESTING AND WILL HOLD OFF SINCE DOES NOT HAVE LIQUID STOOL.; RECORDED 03/17/19 13 9:35AM BY DELORIS MILAN MA, MIGDALIA ON/ADDEN DUM MEDINA Rouse, [facility] 6 10:42:42 Dysphagi a [id number] Completed 200709/26/2013 RESOLVED DATE: 01/20/20 08; RECORDED 01/20/20 08 4:23PM BY JORGE Rai NP, MIGDALIA ON/ADDEN DUM MEDINA Rouse, [facility] 6 10:51:32 Edema [id number] Completed 201209/26/2013 RECORDED 09/21/19 13 12:45PM BY ARLIN LIGHT MA, MIGDALIA ON/ADDEN DUM MEDINA Rouse, [facility] 6 10:51:32 Long-ter m drug therapy Completed 201209/26/2013 RECORDED 05/19/19 13 12:57PM BY DELORIS MILAN MA, ANNOTATI ON/ADDEN DUM MEDINA Rouse, [facility] 6 10:51:32 Exophtha lmos [id number] Completed 201109/26/2013 RECORDED 09/04/19 12 12:56PM BY DELORIS MILAN MA, ANNOTATI ON/ADDEN DUM Deloris MEDINA Levin, [facility] 6 10:51:32 Influenz a vaccine needed [id number] 06 Completed 201209/26/2013 RECORDED 10/23/19 13 4:09PM BY NELIDA OLIVARES, OFFICE VISIT MEDINA Rouse, [facility] 6 10:51:32 Follow-u p encounte r Completed 201309/26/2013 RECORDED 05/12/19 14 2:21PM BY ANAMARIA RIVERA MA, MIGDALIA ON/ADDEN DUM Deloris MEDINA Levin, [facility] 6 10:51:32 Immunosu ppressio n [id number] Completed 201109/26/2013 RECORDED 04/23/19 12 1:24PM BY MIGDALIA MEZA ON/ADDEN DUM Deloris MEDINA Levin, [facility] 6 10:51:32 Kidney stone 57980810 Completed 201109/26/2013 RECORDED 09/04/19 12 12:56PM BY DELORIS MILAN MA, ANNOTSILVER ON/ADDEN DUM Deloris MEDINA Levin, [facility] 6 10:51:32 Laborato ry procedur e performe d 436247540 Completed 201309/26/2013 RECORDED 05/12/19 14 2:21PM BY ANAMARIA RIVERA MA, ANNOTSILVER ON/ADDEN DUM Deloris MEDINA Levin, [facility] 6 10:51:32 Leukocyt osis 486290766 Completed 201209/26/2013 RECORDED 09/21/19 13 12:45PM BY ARLIN LIGHT MA, ANNOTSILVER ON/ADDEN DUM Deloris MEDINA Levin, [facility] 6 10:51:32 Lyme disease 75068877 Completed 201009/26/2013 RECORDED 02/18/19 11 1:17PM BY JASON IRIZARRY MD, ANNOTSILVER ON/ADDEN DUM MEDINA Rouse, [facility] 6 10:51:32 Malaise and fatigue 145182611 Completed 201209/26/2013 RECORDED 12/12/19 13 8:53AM BY DELORIS MILAN MA, ANNOTSILVER ON/ADDEN DUM MEDINA Rouse, [facility] 6 10:51:32 Renewal of prescrip tion Completed 201209/26/2013 RECORDED 05/19/19 13 12:57PM BY DELORIS MILAN MA, ANNOTSILVER ON/ADDEN DUM MEDINA Rouse, [facility] 6 10:51:32 Ulcerati ve rhinitis 80299922 Completed 200809/26/2013 DATE: 07/04/19 09; RECORDED 09/04/19 12 12:56PM BY DELORIS MILAN MA, ANNOTSILVER ON/ADDEN DUM MEDINA Rouse, [facility] 6 10:51:32 Bursitis 72884678 Completed 201109/26/2013 RECORDED 09/04/19 12 12:56PM BY DELORIS MILAN MA, ANNOTSILVER ON/ADDEN DUM MEDINA Roues, [facility] 6 10:51:32 Otitis media 74077589 Completed 200809/26/2013 RESOLVED DATE: 07/04/19 09; RECORDED 07/04/19 09 9:11PM BY JORGE Rai NP, ANNOTSILVER ON/ADDEN DUM MEDINA Rouse, [facility] 6 10:51:32 Knee pain Completed 200709/26/2013 RECORDED 10/01/19 08 8:30AM BY DELORIS MILAN MA, JUDYATI ON/ADDEN DUM Martiza miranda, [facility] 7 14:02:00 Peptic ulcer 86882592 Completed 201209/26/2013 RECORDED 03/11/19 13 1:05AM BY JORGE Rai NP, JUDYATI ON/ADDEN DUM MEDINA Rouse, [facility] 6 10:51:32 Pre-surg asher samina on Completed [...] MILAN MA, ANNOTATI ON/ADDEN DUM MEDINA Rouse, [facility] 6 10:51:32 Urine finding [id number] Completed 201209/26/2013 IMPRESSI ON: ADD CULTURE; RECORDED 09/21/19 13 12:45PM BY ARLIN LIGHT MA, MIGDALIA ON/ADDEN DUM MEDINA Rouse, [facility] 6 10:51:32 Acute respirat ory failure [id number] Completed 201109/26/2013 RECORDED 09/04/19 12 12:56PM BY DELORIS MILAN MA, ANNOTATI ON/ADDEN DUM MEDINA Rouse, [facility] 6 10:51:32 Dyspnea 064759885 Completed 201209/26/2013 RECORDED 09/21/19 13 12:45PM BY ARLIN LIGHT MA, JUDYATI ON/ADDEN DUM MEDINA Rouse, [facility] 6 10:51:32 Disorder of bursa of shoulder region 77975800 Completed 201209/26/2013 STORY: SHAYAN Javed HAS BEEN FOLLOWED BY DR. RAMACHANDRAN FOR RHEUMATO LOGY. UNDERLYI NG DIAGNOSI S OF RA AND PSORIATI C ARTHRITI S. HAS BEEN ON HUMIRA; RECORDED 09/21/19 13 12:45PM BY ARLIN LIGHT MA, MIGDALIA ON/ADDEN DUM MEDINA Rouse, [facility] 6 10:51:32 Administ ration of diphther ia and tetanus vaccine Completed 201209/26/2013 RECORDED 05/19/19 13 12:57PM BY DELORIS MILAN MA, MIGDALIA ON/ADDEN DUM MEDINA Rouse [facility] 6 10:51:32 Full thicknes s rotator cuff tear 840975490 Completed 201209/26/2013 RECORDED 09/21/19 13 12:45PM BY ARLIN LIGHT MA, MIGDALIA ON/ADDEN DUM MEDINA Rouse, [facility] 6 10:51:32 Tobacco dependen ce syndrome 51972370 Completed 201109/26/2013 RECORDED 12/16/19 12 9:07AM BY DELORIS MILAN MA, MIGDALIA ON/ADDEN DUM MEDINA Rouse, [facility] 6 10:51:32 Body mass index 40+ - severely obese 055811963 Completed 02/27/2015 Meme miranda [facility] 3 10:07:59 Acute sinusiti s 38755857 Completed 01/29/2016 MEDINA Rouse, [facility] 6 10:42:01 Sinusiti s 80619312 Completed 01/29/2016 MEDINA Rouse, [facility] 6 10:42:32 Body mass index 30+ - obesity 361461663 Completed 03/15/2022 Cora Lara PA-C [address] [facility] [address], [place], [address] , [facility] 3 10:03:53 Low back pain 216077603 Completed 03/13/2022 Cora Lara PA-C [address] [facility] [address], [place], [address] , [facility] 3 14:00:57 Major depressi ve disorder 109488412 Completed 03/15/2022 Cora Lara PA-C [address] [facility] [address], [place], [address] , [facility] 3 10:05:36 Blood in urine 64887949 Completed 07/02/2016 Maritza miranda [facility] 7 14:02:09 Diarrhea 18637766 Completed 01/29/2016 MEDINA Rouse, [facility] 6 10:42:42 Right lower quadrant pain 765306302 Completed 11/03/2016 MEDINA Rouse, [facility] 7 13:03:20 Ex-smoke r 0838000 Active 2015 Not Available [facility] 4 19:50:27 Pain of shoulder region 07886419 Completed 07/02/2016 Maritza miranda [facility] 7 14:02:03 Knee pain Completed 07/02/2016 Maritza miranda [facility] 7 14:02:00 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 71895802 Active Not Available [facility] 4 19:50:27 Diabetic peripher al neuropat hy 955258829 Active 2016 Not Available [facility] 4 19:50:26 Vitamin B12 deficien cy (non anemic) 24569051 Active 2017 Not Available [facility] 4 19:50:26 Muscle pain 99360869 Active 2017 Not Available [facility] 4 19:50:27 Type 2 diabetes mellitus 37672288 Completed 201805/24/2018 MEDINA Rouse, [facility] 9 14:25:08 Type 2 diabetes mellitus without complica tion 566443583 Completed 10/12/2018 well controll ed after bariatri c surgery in 12/2013 MEDINA Rouse, [facility] 9 11:30:03 Hypergly cemia 80661709 Completed 201803/15/2022 Cora Lara PA-C [address], [place], [address] , [facility] 3 10:04:55 Obesity 269463735 Completed 201806/18/2020 Fabi Bates RN null, [facility] 1 15:35:04 Obstruct kaye sleep apnea of adult 45436122729 03 Completed 202003/13/2022 Dx: G47.33 (mild) Cora Lara PA-C [address], [place], [address] , [facility] 3 13:58:48 Obstruct kaye sleep apnea syndrome 87456859 Active 2020 Not Available [facility] 4 19:50:27 Severe dry skin 232353872 Active 2020 Not Available [facility] 4 19:50:27 Psoriati c arthriti s 908160389 Active 2021 Not Available [facility] 4 19:50:26 Pain of right shoulder joint 99995053341 280718 Active 2021 Not Available [facility] 4 19:50:26 COVID-19 091572548 Active 2022 Not Available [facility] 4 19:50:27 Pneumoni tis 818811369 Completed 202203/15/2022 Cora Lara PA-C [address] [facility] [address], [place], [address] , [facility] 3 10:06:45 Hyperten sive renal disease 36974321 Active 2022 Not Available [facility] 4 19:50:26 Chronic kidney disease stage 2 937488385 Active 2022 Not Available [facility] 4 19:50:26 Iron deficien cy anemia 65543288 Active 2022 Not Available [facility] 4 19:50:27 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 83752821819 86080 Active 2023 Cora Lara PA-C [address] [facility] [address], [place], [address] , [facility] 4 10:51:38 Mild memory disturba nce 434556182 Completed 202311/23/2023 Cora Lara PA-C [address] [facility] [address], [place], [address] , [facility] 4 11:03:27 Mild major depressi on, single episode 38869198 Active 2023 Meme miranda, [facility] 4 15:15:35 Mild neurocog nitive disorder 420992815 Active 2023 Cora Lara PA-C [address] [facility] [address], [place], [address] , [facility] 4 14:50:45 Notes:Some problems listed i n Documents: #[id number], #[id number], #[id number] could not be added to this patient's chart. Please review these documents and add these problems to the patient's chart manually as needed. Problem Notes None recorded. Procedures Surgical History Date Name Laterality Status Provider Name and Address Organization Details Recorded Time 2023 injection of sacroiliac joint completed Sonia Andrea [facility] 4 10:41:48 2023 diabetic retinopathy screening completed Sonia Andrea [facility] 4 12:36:50 2022 Chronic Pain Assessment completed Kesha Strauss MA [facility] 3 10:46:00 2022 Colonoscopy completed Sonia Andrea [facility] 3 11:35:01 2022 esophagogastroduodenoscopy completed Issa Andrea [facility] 3 11:35:07 2020 Diabetic Foot Exam (Monofilament) completed Cora Lara PA-C [address] [address], [place], [address] [place] [address] 1 21:06:41 2020 polysomnography completed Delrois matias MA [facility] 1 15:44:34 2020 arthroplasty of left shoulder completed Deloris matias MA [facility] 1 15:35:54 2019 Orthopedic Surgery completed Deloris matias MA [facility] 1 15:36:33 2018 injection completed Martita Cooley [facility] 9 10:18:41 2018 Diabetic Foot Exam (Monofilament) completed Deloris matias MA [facility] 9 14:23:33 2018 release of trigger thumb completed Deloris matias MA [facility] 9 14:36:23 2017 Diabetic Foot Exam (Monofilament) completed Deloris matias MA [facility] 8 10:31:14 2017 Glaucoma surgery completed Jason Irizarry MD [address], [place], [address], [facility] 8 11:14:40 2016 Carpal tunnel surgery completed Deloris matias MA [facility] 8 11:06:27 2016 Nerve surgery completed Jason Irizarry MD [address], [place], [address], [facility] 8 11:46:25 2016 Mini-Cog Test completed Deloris matias MA [facility] 7 13:00:13 2016 Chronic Pain Assessment completed Deloris matias MA [facility] 7 12:59:42 2016 Most Recent Mammogram completed Virginia Castro [facility] 9 10:15:24 2016 Other completed Renate Aguila [facility] 7 14:27:22 2016 decompression of lumbar spine completed Deloris matias MA [facility] 1 15:51:46 2013 Lap sleeve gastrectomy completed Maritza Barragan MA [facility] 4 13:26:44 2012 Date of Last Colonoscopy completed Maritza Barragan MA [facility] 5 09:28:05 2008 Mammogram screening completed Deloris matias MA [facility] 8 11:10:32 Total hysterectomy completed Deloris matias MA [facility] 7 14:44:54 Back Surgery completed Deloris matias MA [facility] 8 11:10:06 Cholecystectomy completed Kathrin Martinez [facility] [address] [facility] [address], [facility] [place], [address], [facility] 4 10:19:07 Hernia Repair completed Kathrin Martinez [facility] [address] [facility] [address], [facility] [place], [address], [facility] 4 10:19:07 Imaging Results None recorded. Procedure Notes None recorded. Medical Equipment None Reported. Allergies Allergen ID Allergen Name Allergen Category Reaction Reaction Severity Criticality Documentation Date Start Date Code Code System Note Provider Name and Address Organization Details Recorded Time 69125 adhesive environme nt,medica tion rash Not available Not available 03/14/2016 97382 UNK [facility] 7 14:43:07 6387 Cleocin medicatio n hives itching Not available Not available Not available 08/30/20132013 2 RxNorm [facility] 7 14:42:54 6388 codeine medicatio n Not available Not available Not available 08/30/20132012 2670 RxNorm NAUSE A Not Available [facility] 4 19:50:25 6389 Decadron medicatio n hives itching Not available Not available Not available 08/30/20132013 03500 2 RxNorm MEDINA Bowers [facility] 7 14:42:50 Medications Name Sig Start Date [...] Not Available Not Available No t Available acetamino phen 325 mg tablet Take [...] TABLET BY MOUTH EVERY DAY AT BEDTIME 2024 active Not Available Not Available Not Avai lable venlafaxi ne 75 mg tablet DAILY 12/31 [...] Not Available prednison e 5 mg tablet active Not Available Not Available Not Available travopros [...] 1:44PM BY JASON IRIZARRY MD, MEDICATI ON AUTO-BREDNON CTIVATIO N; Not Available Not Available Not [...] every day by oral route at bedtime. active Not Available Not Available No t Available acetamino phen 500 mg tablet TAKE [...] completed RECORDED 08/13/19 11 2:59PM BY RENATE AGUILA, ANNOTATI ON/CHARLEE LUJAN; Not Available Not Available [...] 03/17 completed RECORDED 03/17/19 13 9:45AM BY DELORISKARLENE MILAN MA, OFFICE VISIT;PU LMONARY PRESCRIB ES Not Available Not Available Not Available Emy 30 mg capsule,e xtended release BID 11/07 completed RECORDED 11/08/19 08 4:16PM BY OJRGE Rai NP, MIGDALIA ON/ADDEN DUM; Not Available [...] 3 CAPSULES BY MOUTH THREE TIMES DAILY 2024 active Not Available Not Available Not Avai lable omeprazol e 20 mg capsule,d elayed release [...] day by oral route for 7 days. active Not Available Not Available No t Available tobramyci n 0.3 %-dexamet hasone 0.1 [...] RECORDED 08/13/19 11 2:59PM BY MIGDALIA DREW ON/ DUM;THIS ORDER DISCONTI NUED PER [facility]. Not Available Not Available Not Available [...] TAKE 1 TABLET BY MOUTH TWICE DAILY 2024 active Not Available Not Available Not Avai lable Horizon Nasal Cpap System device active Not [...] RECORDED 11/30/19 07 1:50PM BY JORGE Rai, [employer], ANNOTATI ON/ADDEN DUM; Not Available Not Available [...] Not Available Not Available Not Available Fluvirin [id number] 45 mcg (15 mcg x 3)/0.5 mL [...] Not Available Not Available Vitals Date Recorded Systolic blood pressure Diastolic blood pressure Provider Name and Address Organization Details Last Updated DateTime 02/22/2024 126 mm[Hg] 72 mm[Hg] Cora Lara PA-C [address], [address], [facility] 02/22/2024 11:13:25 Date Recorded Body height Heart rate Oxygen saturation Oxygen saturation in Arterial blood by Pulse oximetry Body temperature Body mass index (BMI) Body weight Systolic blood pressure Diastolic blood pressure Provider Name and Address Organization Details Last Updated DateTime 5 161.29 cm 102 /min 100 % 100 % 97.2 [degF] 41.1 kg/m2 268223. 8 g 148 mm[Hg] 89 mm[Hg] Kylah Dean MA [facility] 5 10:19:00 Date Recorded Body height Body mass index (BMI) Body weight Heart rate Oxygen saturation Oxygen saturation in Arterial blood by Pulse oximetry Body temperature Systolic blood pressure Diastolic blood pressure Provider Name and Address Organization Details Last Updated DateTime 5 161.29 cm 41.3 kg/m2 606627. 39 g 104 /min 97 % 97 % 97.6 [degF] 128 mm[Hg] 83 mm[Hg] Kesha Strauss [facility] 5 10:36:59 Date Recorded Heart rate Provider Name an d Address Organization Details Last Updated DateTime 08/17/2023 92 /min Cora Reid [address], [address], [facility] 08/17/2023 14:57:34 Date Recorded Body height Body mass index (BMI) Body weight Heart rate Oxygen saturation Oxygen saturation in Arterial blood by Pulse oximetry Body temperature Systolic blood pressure Diastolic blood pressure Provider Name and Address Organization Details Last Updated DateTime 4 161.29 cm 41 kg/m2 062363. 21 g 118 /min 99 % 99 % 95.9 [degF] 138 mm[Hg] 83 mm[Hg] Kylah Dean MA [facility] 4 13:53:36 Date Recorded Body height Provider Name an d Address Organization Details Last Updated DateTime 11/10/2023 161.29 cm Nelida Olivares MA [facility] 11/10/2023 15:30:07 Date Recorded Systolic blood pressure Diastolic blood pressure Provider Name and Address Organization Details Last Updated DateTime 11/23/2023 126 mm[Hg] 76 mm[Hg] Cora Lara PA-C [address] [facility] [address], [place], [address], [facility] 11/23/2023 11:18:46 Date Recorded Body height Body mass index (BMI) Body weight Heart rate Oxygen saturation Oxygen saturation in Arterial blood by Pulse oximetry Body temperature Systolic blood pressure Diastolic blood pressure Provider Name and Address Organization Details Last Updated DateTime 4 161.29 cm 41.1 kg/m2 385650. 8 g 105 /min 99 % 99 % 97.3 [degF] 145 mm[Hg] 91 mm[Hg] Kylah Dean MA [facility] 4 10:18:43 Social History Question Answer Notes LastModified by Organizat ion Details LastModified Time Tobacco Smoking Status Former Smoker Nelida Olivares MA null, [facility] 10/31/2013 09:58:43 Do You Have An Advance Directive? Yes [facility] Information not available 01/16/2020 Is Blood Transfusion Acceptable In An Emergency? Yes Information not available 02/27/2015 What Is Your Level Of Caffeine Consumption? Occasional 0-1 Serving Of Coffee Daily, No Tea/soda Information not available 08/25/2014 How Much Tobacco Do You Chew? None Information not available 02/27/2015 What Type Of Diet Are You Following? REGULAR Lots Of Water; Gastric Bypass 2013 Information not available 05/08/2014 Which Illicit Or Recreational Drugs Have You Used? None Information not available 02/27/2015 When Did You Quit Smoking? 14+yearssince magdaleno [...] To Smoke? No Information not available 02/27/2015 How Much Tobacco Do You Smoke? 1 PPD Information not available 08/25/2014 Do You Use Sunscreen Routinely? Yes [email or web address] Information not available 11/17/2018 How Many Years Have You Smoked Tobacco? 31 Information not available 02/27/2015 Sex: Unknown Functional Status Question Answer Note LastModified by Organizat ion Details LastModified Time Do you use any illicit or recreational drugs? No Information not available 01/16/2021 Do you or have you ever used any other forms of tobacco or nicotine? No Information not available 01/16/2021 What is your level of alcohol consumption? None notes 26 years sobriety Information not available 11/03/2016 Do you or have you ever used smokeless tobacco? Never used smokeless tobacco Information not available 11/17/2018 Are you currently employed? No disabled due to back surgeries Information not available 08/25/2014 Are you able to walk? YESASSIST walker Information not available 04/14/2024 Are you able to care for yourself? 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 Never used electronic cigarettes Information not available 11/17/2018 What is your exercise level? Occasional Limited [...] available 2015 10:33:13 Medical History Condition Response Depression Y Skin Problems Y Diabetes Y Obesity Y Asthma Y High Cholesterol Y Hypertension Y Gynecological History Statement/Question Response Date of Last Pap Smear Current Control Method Hysterectom y Date of Last Colonoscopy 05/05/2012 Most Recent Mammogram 07/30/2016 Obstetrics History GPAL:G 0 P 0 0 0 0 Immunizations Vaccine Type Date Status Note Provider Nam e and Address Organization Details Recorded Time Influenza, split virus, trivalent, PF 5 completed Not Available [facility] 03/06/2023 19:50:27 Pneumococcal conjugate PCV 13 5 completed Not Available [facility] 03/06/2023 19:50:27 Tdap 5 completed Not Available [facility] 03/06/2023 19:50:27 Influenza, split virus, trivalent, preservative 6 completed Not Available [facility] 03/06/2023 19:50:27 COVID-19, mRNA, LNP-S, PF, 30 mcg/0.3 mL dose 1 completed Not Available [facility] 03/06/2023 19:50:27 COVID-19, mRNA, LNP-S, PF, 30 mcg/0.3 mL dose 1 completed Not Available [facility] 03/06/2023 19:50:27 COVID-19, mRNA, LNP-S, PF, 30 mcg/0.3 mL dose 1 completed Not Available [facility] 03/06/2023 19:50:27 Influenza, split virus, quadrivalent, PF 0 completed Not Available [facility] 03/06/2023 19:50:27 Influenza, split virus, trivalent, preservative 1 completed Not Available [facility] 03/06/2023 19:50:27 zoster recombinant 2 completed Not Available [facility] 03/06/2023 19:50:27 COVID-19, mRNA, LNP-S, PF, 30 mcg/0.3 mL dose, ciarra-sucrose 2 completed Not Available [facility] 03/06/2023 19:50:27 zoster recombinant 1 completed Not Available [facility] 03/06/2023 19:50:27 Influenza, split virus, quadrivalent, PF 9 completed Not Available [facility] 03/06/2023 19:50:27 Influenza, split virus, quadrivalent, PF 7 completed Not Available [facility] 03/06/2023 19:50:27 Influenza, split virus, quadrivalent, PF 8 completed Not Available [facility] 03/06/2023 19:50:27 Influenza, MDCK, quadrivalent, PF 2 completed Not Available [facility] 03/06/2023 19:50:27 COVID-19, mRNA, LNP-S, PF, ciarra-sucrose, 30 mcg/0.3 mL 4 completed MEDINA Eason, [facility] 04/14/2024 10:31:13 Influenza, high-dose, trivalent, PF 4 completed MEDINA Eason, [facility] 04/14/2024 10:31:13 Influenza, split virus, trivalent, PF 4 completed Not Available [facility] 03/05/2019 02:21:58 pneumococcal polysaccharide PPV23 6 completed Not Available [facility] 03/06/2023 19:50:27 pneumococcal polysaccharide PPV23 9 completed Not Available [facility] 03/06/2023 19:50:27 Influenza, split virus, trivalent, preservative 6 completed Not Available [facility] 03/06/2023 19:50:27 Td (adult), 2 Lf tetanus toxoid, preservative free, adsorbed 7 completed Not Available [facility] 03/06/2023 19:50:27 Influenza, split virus, trivalent, preservative 7 completed Not Available [facility] 03/06/2023 19:50:27 Influenza, split virus, trivalent, preservative 8 completed Not Available [facility] 03/06/2023 19:50:27 Influenza, split virus, trivalent, preservative 9 completed Not Available [facility] 03/06/2023 19:50:27 Influenza, split virus, trivalent, preservative 0 completed Not Available [facility] 03/06/2023 19:50:27 Influenza, split virus, trivalent, preservative 2 completed Not Available [facility] 03/06/2023 19:50:27 Tdap 3 completed Not Available [facility] 03/06/2023 19:50:27 influenza, seasonal, intradermal, preservative free 3 completed Not Available [facility] 03/06/2023 19:50:27 Influenza, split virus, quadrivalent, PF 3 [facility] 14:44:09 Past Encounters Encounter ID Performer Location Encounter Start Date Encounter Closed Date Diagnosis/Indication Diagnosis SNOMED-CT Code Diagnosis ICD10 Code Diagnosis Note [id number] [facility] erce [address] [facility] [place] [address] 03/13/2006 00:00:00 [id number] auto[employer]Comm erce [address] [facility] [place] [address] 03/03/2006 00:00:00 [id number] auto[employer]Comm erce [address] [facility] [place] [address] 01/30/2006 00:00:00 [id number] auto[employer] erce [address] [facility] [place] [address] 12/10/2005 00:00:00 [id number] auto[employer]Comm erce [address] [facility] [place] [address] 05/12/2006 00:00:00 [id number] auto[employer] erce [address] [facility] [place] [address] 07/07/2006 00:00:00 [id number] auto[employer]Comm erce [address] [facility] [place] [address] 08/07/2006 00:00:00 [id number] auto[employer]Comm erce [address] [facility] [place] [address] 10/09/2006 00:00:00 [id number] auto[employer] erce [address] [facility] [place] [address] 11/27/2006 00:00:00 [id number] auto[employer]Comm erce [address] [facility] [place] [address] 12/10/2006 00:00:00 [id number] auto[employer] erce [address] [facility] [address] [place] [address] 01/12/2007 00:00:00 [id number] auto[employer]Comm erce [address] [facility] [place] [address] 01/22/2007 00:00:00 [id number] autoEComm erce [address] [facility] [place] [address] 03/25/2007 00:00:00 [id number] auto[employer]Comm erce [address] [facility] [place] [address] 05/04/2007 00:00:00 [id number] auto[employer]Comm erce [address] [facility] [place] [address] 08/05/2007 00:00:00 [id number] auto[employer]Comm erce [address] [facility] [place] [address] 08/18/2007 00:00:00 [id number] autoEComm erce [address] [facility] [place] [address] 09/02/2007 00:00:00 [id number] auto[employer]Comm erce [address] [facility],[address] [place] [address] 10/01/2007 00:00:00 [id number] auto[employer]Comm erce [address] [facility] [place] [address] 12/11/2007 00:00:00 [id number] auto[employer]Comm erce [address] [facility] [place] [address] 01/03/2008 00:00:00 [id number] autoEComm erce [address] [facility],[address] [place] [address] 01/20/2008 00:00:00 [id number] autoEComm erce [address] [facility] [place] [address] 04/06/2008 00:00:00 [id number] autoEComm erce [address] [facility] [place] [address] 04/13/2008 00:00:[id number] [address] [place] [address] 07/03/2008 00:00:00 [id number] autoEComm erce [address] [facility] [address] [place] [address] 10/09/2008 00:00:00 [id number] autoEComm erce [address] [facility] [place] [address] 12/21/2008 00:00:00 [id number] auto[employer]Comm erce [address] [facility] [address] [place] [address] 01/26/2009 00:00:00 [id number] auto[employer]Comm erce [address] [facility] [place] [address] 05/09/2009 00:00:00 [id number] autoEComm erce [address] [facility],[address] [place] [address] 08/10/2009 00:00:00 [id number] autoEComm erce [address] [facility],[address] [place] [address] 09/14/2009 00:00:00 [id number] autoEComm erce [address] [facility],[address] [place] [address] 11/12/2009 00:00:00 [id number] autoEComm erce [address] [facility],[address] [place] [address] 02/18/2010 00:00:00 [id number] autoEComm erce [address] [facility],[address] [place] [address] 07/10/2010 00:00:00 [id number] autoEComm erce [address] [facility],[address] [place] [address] 10/02/2010 00:00:00 [id number] autoEComm erce [address] [facility],[address] [place] [address] 01/20/2011 00:00:00 [id number] [place] [address] 05/26/2011 00:00:00 [id number] auto[employer]Comm erce [address] [place] [address] 09/04/2011 00:00:00 [id number] autoEComm erce [address] [place] [address] 10/14/2011 00:00:00 [id number] autoEComm erce [address] [facility] [address] [place] [address] 12/16/2011 00:00:00 [id number] autoEComm erce [address] [facility] [address] [place] [address] 01/19/2012 00:00:00 [id number] autoEComm erce [address] [facility],[address] [place] [address] 03/17/2012 00:00:00 [id number] autoEComm erce [address] [facility],[address] [place] [address] 05/18/2012 00:00:00 [id number] autoEComm erce [address] [facility] [address] [place] [address] 06/24/2012 00:00:00 [id number] autoEComm erce [address] [facility],[address] [place] [address] 08/17/2012 00:00:00 [id number] auto[employer]Comm erce [address] [facility],[address] [place] [address] 09/20/2012 00:00:00 [id number] autoEComm erce [address] [facility] [address] [place] [address] 10/22/2012 00:00:00 [id number] autoEComm erce [address] [facility],[address] [place] [address] 12/11/2012 00:00:00 [id number] [address]Comm erce [address] [place] [address] 12/31/2012 00:00:00 [id number] autoEComm erce [address] [facility] [place], [place] [address] 05/11/2013 00:00:00 [id number] autoEComm erce [address] [facility] [place], [place] [address] 08/12/2013 00:00:00 [id number] Kathrin Martinez [facility] Main Office [address] [facility] [address] [place] [address] 10/31/2013 09:30:33 10/31/2013 10:30:03 Pre-surgery evaluation [id number] Needs infl uenza immunization 988005419 Morbid obesity 586795864 Continue bariatric diet and classes Type 2 margareth betes mellitus without complication 390399195 Continue current meds Essential hypertension 76483582 Continue current meds Hyperlipidemia 52454812 Continue current meds Gastroesop hageal reflux disease 860511490 Continue current meds [id number] Jason Irizarry MD Main Office [address] [facility] [address] [place] [address] 11/09/2013 10:55:48 11/09/2013 11:43:49 Type 2 diabetes mellitus without complication 346805457 Body mass index 40+ - severely obese 379018930 [id number] Issa Cantu [facility] Main Office [address] [facility] [address] [place] [address] 01/20/2014 13:04:43 01/20/2014 13:55:09 Type 2 diabetes mellitus without complication 820973239 doing well post gastric sleeve. she has f/u in 4 months here Body mass index 40+ - severely obese 841038309 she just had gastric surgery to address this [id number] Austin coronado MD Main Office [address] [facility] [address] [place] [address] 02/28/2014 13:59:05 02/28/2014 14:52:32 Acute sinusitis 30182148 [id number] Jason Irizarry MD Main Office [address] [facility] [address] [place] [address] 05/08/2014 09:23:47 05/08/2014 10:33:20 Adult health examination 228755763 Essential hypertension 53720188 Hyperlipidemia 01955436 Obstructiv e sleep apnea syndrome 24341714 Type 2 margareth betes mellitus without complication 666337763 Body mass index 30+ - obesity 759778172 s/p bariatric surgery Low back pain 155561227 Major depr essive disorder 302986285 Followed by Dr. Geno Cardona [id number] Jason Irizarry MD Main Office [address] [facility] [address] [place] [address] 06/12/2014 14:01:32 06/12/2014 15:50:43 Low back pain 345429595 Has had 6 back surgeries. Last was [address] Luque. [id number] Jason Irizarry MD Main Office [address] [facility] [address] [place] [address] 08/25/2014 10:09:07 08/25/2014 11:20:31 Type 2 diabetes mellitus without complication 086957754 Essential hypertension 21313555 Low back pain 051803690 Has had 6 back surgeries. Last was [address] Luque. Obstructiv e sleep apnea syndrome 18410977 [id number] Jason Irizarry MD Main Office [address] [place] [address] 02/27/2015 10:20:53 02/27/2015 11:13:10 Type 2 diabetes mellitus without complication 995557864 E11.9 Essential hypertension 47055836 I10 Major depr essive disorder 670251993 F32.[address] Geno Cardona Screening for malignant neoplasm of breast 117813460 Z12.39 Body mass index 30+ - obesity 985237928 Z68.31 E66.9 s/p bariatric surgery. Continued follow up with Dr. Terrell. Blood in urine 81097194 R31.9 Low back pain 812819068 M54.5 Has had 6 back surgeries. Last was [address] Luque. [id number] Cora Lara PA-C Main Office [address] [place] [address] [place] [address] 06/28/2015 13:53:13 06/28/2015 14:50:27 Diarrhea 43639107 R19.7 Right lowe r quadrant pain 307924310 R10.31 mild-mod pain c palp, no c/o pain at baseline -- may need GI eval if sxs worse [id number] Jason Irizarry MD Main Office [address] [place] [address] [place] [address] 08/29/2015 09:34:29 08/29/2015 10:56:41 Adult health examination 745680874 Z00.00 Type 2 margareth betes mellitus without complication 989911407 E11.9 Essential hypertension 63991529 I10 Major depr essive disorder 579784196 F32.9 Screening for malignant neoplasm of breast 733386537 Z12.39 Low back pain 852742983 M54.5 Has had 6 back surgeries. Last was [address] Luque. Pain of [facility] 12465554 M25.512 Knee pain 00755860 M25.5 61 [id number] Jason Irizarry MD Main Office [address] [place] [address] [place] [address] 01/29/2016 10:36:51 01/29/2016 11:20:06 Lumbar radiculopathy 687407241 M54.16 Left L3 distributi on. New symptoms in patient with longstandi ng chronic LBP [id number] Jason Irizarry MD Main Office [address] [place] [address] 03/05/2016 08:38:37 03/05/2016 09:56:35 Type 2 diabetes mellitus without complication 972353376 E11.9 Essential hypertension 50276096 I10 Low back pain 319816349 M54.5 Has had 6 back surgeries. Last was [address] Luque. [id number] Jason Irizarry MD Main Office [address] [place] [place] [address] [place] [address] 03/14/2016 14:11:21 03/14/2016 15:21:39 Pre-surgery evaluation 399028786 Z01.818 Leukocytes in urine 2757 41695 R82.71 Type 2 margareth betes mellitus without complication 018637955 E11.9 Essential hypertension 31347948 I10 Obstructiv e sleep apnea syndrome 06554102 G47.33 [id number] Cora Lara PA-C Main Office [address] [place] [address] 05/05/2016 12:40:09 05/05/2016 14:03:25 Transition of care 6218270981 105 Z75.8 will attempt to get labs from snf for completene ss / comparison History of excision of lamina of lumbar vertebra for decompression of spinal cord 135304344 Z98.890 and fusion 04/04/[address] Luque ----- s/p surgery x 2 and then fluid aspiration - cont. f/u c him Essential hypertension 12032207 I10 stable off meds s/p gastric sleeve Type 2 margareth betes mellitus without complication 630523091 E11.9 fsbs stable lately Obstructiv e sleep apnea syndrome 11067480 G47.33 Leukocytosis 582269613 D 72.829 pt states had elevated wbc ct and mild post op anemia - will check cbc [id number] Jason Irizarry MD Main Office [address] [place] [address] [place] [address] 07/02/2016 13:46:40 07/02/2016 14:50:16 Insomnia 410938093 G47.00 Fatigue 83350502 R53.83 Loss of appetite 5015842 6 R63.0 Fever 787866459 R50.9 [id number] Jason Irizarry MD Main Office [address] [place] [address] [place] [address] 07/30/2016 12:42:31 07/30/2016 13:39:57 Chronic pain syndrome 238159409 G89.4 Dysuria 13351142 R30.0 Type 2 margareth betes mellitus 87343406 E11.9 Screening for malignant neoplasm of breast 430014894 Z12.39 Insomnia 317918444 G47.0 0 [id number] Mattie Lara PA-C Main Office [address] [facility] [address] [place] [address] 08/29/2016 12:17:56 08/29/2016 13:50:56 Microcytic anemia 792905146 D50.9 Check stool for occult blood at . Test iron and retest CBC. Pt. will return for lab f/u and will determine if GI referral is needed. Essential hypertension 30665729 I10 Lower sodium and caffeine. Test BP in 1 week. [id number] Jason Irizarry MD Main Office [address] [facility] [address] [place] [address] 08/30/2016 10:26:06 08/30/2016 10:27:27 Screening for malignant neoplasm of colon 704497070 Z12.11 [id number] Mattei Lara PA-C Main Office [address] [place] [address] [place] [address] 09/05/2016 09:54:11 09/05/2016 10:35:40 Anemia due to unknown mechanism 60663560 D64.9 Pt has been taking her iron 325 mg supplement s once a day. Will try BID and repeat CBC and iron in 4-6 weeks. Essential hypertension 17924440 I10 Pt's blood pressure is still elevated on today's visit. Pt will be started on an ACEi. Pt was educated on continuing to limit her caffeine and salt intake as well as to exercise to lower her bp. Return with BP readings from home in 4 weeks. [id number] Mattie Lara PA-C Main Office [address] [place] [address] [place] [address] 10/01/2016 10:23:51 10/01/2016 11:33:04 Anemia due to unknown mechanism 67304836 D64.9 Pt has been taking iron 325 [...] in 10 yrs from previous Essential hypertension 09178119 I10 BP is stable on lisinopril 10mg, [...] should be re-checked Needs infl uenza immunization 540936019 Z23 - Pt will receive flu shot today Body mass index 30+ - obesity 778958675 Z68.30 - Pt will continue to loss weight through portion control- Pt is unable to exercise at this time due to extensive back surgery which she is still covering from [id number] Jason Irizarry MD Main Office [address] [facility] [address] [place] [address] 11/03/2016 12:37:50 11/03/2016 14:56:18 Adult health examination 090437149 Z00.00 Type 2 margareth betes mellitus without complication 268176586 E11.9 Body mass index 30+ - obesity 484110253 Z68.31 E66.9 s/p bariatric surgery. Continued follow up with Dr. Terrell. Spinal coy nosis of lumbar region 84462904 M48.06 Major depr essive disorder 882627364 F32.9 Still with residual symptoms. followed by psychiatry Chronic pain syndrome 37 2878702 G89.4 stable off of opioids. Essential hypertension 52837317 I10 STable on present medication s. Obstructiv e sleep apnea syndrome 87385203 G47.33 Stable off of treatment after weight loss (bariatric surgery) [id number] Jason Irizarry MD Main Office [address] [address] [place] [address] 05/01/2017 10:25:14 05/01/2017 12:07:41 Diabetic peripheral neuropathy 697139533 E11.40 Screening for malignant neoplasm of breast 835948916 Z12.31 last done 2008; refuses Hepatitis C screening 41 9605517 Z11.59 Essential hypertension 52953027 I10 STable on present medication s. Spinal coy nosis of lumbar region 76859533 M48.061 Obstructiv e sleep apnea syndrome 32085232 G47.33 Stable off of treatment after weight loss (bariatric surgery) Polyneuropathy 83724069 A69.22 Obesity 132021693 E66.9 Body mass index 30+ - obesity 069276265 Z68.30 s/p bariatric surgery. Continued follow up with Dr. Terrell. [id number] Jason Irizarry MD Main Office [address] [address] [place] [address] 08/22/2017 10:26:28 08/22/2017 11:25:44 Contusion of lower limb 38703520 S80.12XA At [facility] ed risk for falls 489835029 Z91.81 Fall 0981362 W18.2XXA [id number] Jason Irizarry MD Main Office [address] [address] [facility] [place] [address] 11/06/2017 10:02:23 11/06/2017 11:45:45 Diabetic peripheral neuropathy 150991364 E11.40 Adult [facility] th examination 575484323 Z00.00 Needs infl uenza immunization 525291867 Z23 Hyperlipidemia 56055151 E78.5 Body mass index 30+ - obesity 321353917 E66.01 Z68.35 s/p bariatric surgery. Continued follow up with Dr. Terrell. Muscle pain 04219360 M79 .1 Mild persi stent allergic asthma 8788891590 0526516 J45.30 [id number] Jason Irizarry MD Main Office [address] [facility] [address] [facility] [place] [address] 05/24/2018 14:09:52 05/24/2018 15:24:14 Type 2 diabetes mellitus without complication 301630215 E11.9 Diabetic p eripheral neuropathy 202650470 E11.40 Body mass index 30+ - obesity 540259031 E66.01 s/p bariatric surgery. Continued follow up with Dr. Terrell. [id number] Thaddeus Jackson MD Main Office [address] [facility] [address] [facility] [place] [place] [address] 11/17/2018 10:06:59 11/17/2018 11:32:24 Adult health examination 717094266 Z00.00 Pt is in good general health. Social and family history reviewed. Immunizati ons reviewed, administer ed the flu shot. She is upt to date on dental and eye providers, mammogram --pt refuses, aware we could be missing early or nonpalpabl e breast cancer. Pt states colon up to date - will get report , Reviewed diet and exercise. Needs infl uenza immunization 554697278 Z23 Body mass index 30+ - obesity 929156723 Z68.36 pt tries to eat healthy. She has had gastric bypass in the past. Hard to exercise due to chronic disabling back pain. Major depr essive disorder 597974773 F32.[address] and is on TCA, currently stable Essential hypertension 79375381 I10 on lisinopril , BP at goal Hyperglycemia 45203035 R 73.9 Myalgia/my ositis - multiple 774768492 M79.10 followp in 6 weeks Paresthesi a of upper limb 90595118 R20.2 Obesity 244102609 E66.9 [id number] Thaddeus Jackson MD Main Office [address] [address] [place] [address] 12/30/2018 13:01:11 12/30/2018 13:44:25 Pre-surgery evaluation 263884627 Z01.818 Patient is at low risk for [...] pending Pain of le ft shoulder joint 1593881609 8304476 M25.512 surgery due to severely diminished ROM and chronic pain [id number] Jason Irizarry MD Main Office [address] [address] [place] [address] 01/06/2019 09:45:38 01/20/2019 08:54:26 [id number] Jason Irizarry MD Main Office [address] [address] [place] [address] 01/16/2020 10:13:56 01/16/2020 11:50:06 Adult health examination 893236992 Z00.00 Essential hypertension 34126322 I10 STable on present medication s. Hyperlipidemia 70339577 E78.5 Fatigue 65232646 R53.83 Diabetic p eripheral neuropathy 348877282 E11.40 Spinal coy nosis of lumbar region 59181039 M48.061 Obstructiv e sleep apnea syndrome 23608962 G47.33 Stable off of treatment after weight loss (bariatric surgery) Body mass index 30+ - obesity 039370642 E66.01 Z68.35 s/p bariatric surgery. Continued follow up with Dr. Terrell. [id number] Jason Irizarry MD Main Office [address] [address] [place] [address] 03/22/2020 08:51:20 04/10/2020 14:58:58 [id number] Cora Lara PA-C Main Office [address] [facility] [address] [place] [address] 10/11/2020 10:08:45 10/11/2020 11:24:52 Pre-surgery evaluation 432462276 Z01.818 Cataract 713800963 H25.0 13 Essential hypertension 64845158 I10 stable bp, cont med as dir, check bmp below Hyperlipidemia 42560965 E78.5 Diabetic p eripheral neuropathy 862480023 E11.40 diet / ex control, pending pe c pcp in a few months will check A1c at pt request d/t wt gain cont f/u c eye will get podiatry eval - see below Spinal coy nosis of lumbar region 43601291 M48.061 stable, s/p multiple back surgeries Obstructiv e sleep apnea syndrome 43638083 G47.33 cont cpap as dir, cont f/u c sleep med Body mass index 40+ - severely obese 971938738 E66.01 Z68.41 Severe dry skin 44978318 2 L85.3 on feet - no sig help c otc moist lotion - trial c amlactin - encouraged pt to f/u c podiatry - see above [id number] Thaddeus Jackson MD Main Office [address] [facility] [address] [place] [address] 01/16/2021 09:44:41 01/16/2021 11:13:19 Adult health examination 153865094 Z00.00 next colon 2022, defers pap/mammo Essential hypertension 68736993 I10 stable bp, cont med as dir, check cmp Hyperlipidemia 89535413 E78.5 Diabetic p eripheral neuropathy 105831300 E11.40 diet / ex control p bariatric surgery cont f/u c eye cont f/u c podiatry - pending Fara - your A1c is slowly climbing, but fortunatel y not elevated too high to begin medication for this at this time. Rec. weight loss thru low carb diet and increased aerobic exercise. Spinal coy nosis of lumbar region 75923500 M48.061 stable, s/p multiple back surgeries Obstructiv e sleep apnea syndrome 62628286 G47.33 cont bipap as dir, cont f/u c sleep med Body mass index 40+ - severely obese 327198922 E66.01 Z68.41 Varicella vaccination 68 676765 Z23 Screening for malignant neoplasm of breast 353280720 Z12.39 pt declines mammogram Depressive disorder 3548 7 F32.0 pending start duloxetine thru psychiatri st - cont see q 3 months, no see therapist Severe dry skin 21147066 2 L85.3 sig better c amlactin - encouraged pt to f/u c podiatry - see above [id number] Thaddeus Jackson MD Main Office [address] [facility] [place] [address] 07/04/2021 09:43:36 07/04/2021 10:58:22 Pre-surgery evaluation 403799997 Z01.818 Pain of ri ght shoulder joint 8589906896 1183987 M25.511 Essential hypertension 62202455 I10 bp on low side of normal ---- +/- orthostati c - rec cut lis 10mg in half === 5mg qd Depressive disorder 3548 9006 F32.0 stable, cont duloxetine thru psychiatri st - cont see q 3 months, no see therapist Diabetic p eripheral neuropathy 689249437 E11.40 diet / ex control p bariatric surgery cont f/u c eye md cont f/u c podiatry Fara - your A1c is slowly climbing, but fortunatel y not elevated too high to begin medication for this at this time. Rec. weight loss thru low carb diet and increased aerobic exercise.5 .22 - last A1c 6.2 on 10.11.20 - will get recheck Obstructiv e sleep apnea syndrome 37059408 G47.33 cont bipap as dir, cont f/u c sleep med 5.22 - consider bringing bipap to above procedure Spinal coy nosis of lumbar region 49414095 M48.061 stable, s/p multiple back surgeries - pt has tolerated anesthesia well in the past Body mass index 40+ - severely obese 563211067 E66.01 Z68.41 Psoriatic arthritis 1563 11709 L40.50 cont med as dir, cont f/u c rheum & derm [id number] Thaddeus Jackson MD Main Office [address] [facility] [place] [address] 10/09/2021 08:17:22 10/09/2021 09:37:27 Essential hypertension 39560676 I10 bp & cr stable, cont med as dir Hyperlipidemia 02119294 E78.5 tolerating statin, recheck lipids Diabetic p eripheral neuropathy 609779905 E11.40 diet / ex control p bariatric [...] recheck Pain of ri ght shoulder joint 3696418666 3392423 M25.511 s/p sx, cont sling/PT as dir, cont f/u c ortho - next month [id number] Eric Castillo MD Telehealt h [address] [facility] [address] [facility] [place] [address] 02/19/2022 12:49:57 02/19/2022 14:04:56 COVID-19 023649123 U07.1 hydration, rest, if feeling better quarantine x 5 days then mask for 5 days. If not better after 5 days quarantine for full 10 days. Tylenol/ ibuprofen as needed, OTC cough med as needed. Call/ return for worsening sx or concerns.S top atorvastat in while on paxlovid. Asthma 312558820 J45.90 9 will provide refill inhaler to use as needed Essential hypertension 85118553 I10 Continue current meds [id number] Eric Castillo MD Main Office [address] [facility] [address] [facility] [place] [address] 02/25/2022 08:28:51 02/25/2022 09:10:09 COVID-19 726601889 U07.1 s/p covid diagnosed on 02/18/22. Pneumonitis 355922120 J1 8.9 will tx for possible secondary infection as she is high risk. Zpak as directed, prednisone burst as directed. hydration, rest, tea with honey, continue albuterol inhaler use.- ED precaution s: Diff breathing, fever, unable to tolerate PO etc. Diabetic p eripheral neuropathy 018830689 E11.40 Essential hypertension 37878097 I10 Continue current meds Obstructiv e sleep apnea of adult 0416174821 103 G47.33 [id number] Thaddeus Jackson MD Main Office [address] [facility] [address] [facility] [address] 03/13/2022 13:02:22 03/13/2022 14:28:25 Adult health examination 738065592 Z00.00 pt defers pap Asthma 219058921 J45.90 9 stable Chronic pain syndrome 37 7408169 G89.4 see below Diabetic p eripheral neuropathy 551987531 E11.40 diet / ex control p bariatric [...] encourage if a1c cont to climb Hyperlipidemia 31692772 E78.5 lipids nl, cont statin as dir Obstructiv e sleep apnea syndrome 63372077 G47.33 cont bipap as dir, cont f/u c sleep med Psoriatic arthritis 1563 45449 L40.50 cont med as dir, cont f/u c rheum - f/u c derm prn Vitamin D deficiency 347 80497 E55.9 Spinal coy nosis of lumbar region 62920445 M48.061 stable, s/p multiple back surgeries - pt has tolerated anesthesia well in the past Has had 6 back surgeries. Last was [address] Luque. cont hep rec tyl 500mg 1-2 tabs up to 3x/day, reserve naproxen for prn Body mass index 40+ - severely obese 859472012 E66.01 Z68.41 Screening for malignant neoplasm of colon 841180571 Z12.11 Screening for malignant neoplasm of breast 858737781 Z12.39 Iron defic iency anemia 38136495 D50.9 Hypertensi ve renal disease 50783092 I12.9 bp stable Chronic ki dney disease stage 2 374697201 N18.2 Depressive disorder 3548 9007 F32.0 stable, cont duloxetine thru psychiatri st - cont see q 3 months, no see therapist Vitamin B1 2 deficiency (non anemic) 17851947 E53.8 [id number] Thaddeus Jackson MD Main Office [address] [facility] [address] [facility] [place] [address] 08/06/2022 13:00:34 08/06/2022 14:24:14 Diabetic peripheral neuropathy 281803803 E11.40 diet / ex control p bariatric [...] stable at 6.3 Gastroesop hageal reflux disease 540842364 K21.9 stable, cont ppi as dir, seen by gi - pending egd/colon in 10.23 Chronic ki dney disease stage 2 018288427 N18.2 Hypertensi ve renal disease 79219640 I12.9 bp stable, cont med as dir Psoriatic arthritis 1563 72467 L40.50 stable - cont med as dir, cont f/u c rheum - f/u c derm prn Iron defic iency anemia 40701141 D50.9 mild, persistent d/t donates blood (platelets ) q o wkcont iron c vit c daily Spinal coy nosis of lumbar region 39084470 M48.061 stable, s/p multiple back surgeries - pt has tolerated anesthesia well in the past Has had 6 back surgeries. Last was [address] Luque. cont hep rec tyl 500mg 1-2 tabs up to 3x/day, reserve naproxen for prn 6.23 - ambulating better c UpWalker [id number] Thaddeus Jackson MD Main Office [address] [facility] [address] [facility] [place] [address] 12/08/2022 09:53:06 12/08/2022 11:34:13 Needs influenza immunization 200140906 Z23 Spinal coy nosis of lumbar region 49175765 M48.061 stable, s/p multiple back surgeries - [...] o/n Chronic ki dney disease stage 2 692396119 N18.2 Hypertensi ve renal disease 31721405 I12.9 bp elevated but likely d/t pain, cont med as dir, recheck next month Gastroesop hageal reflux disease 837435642 K21.9 stable, cont ppi as dir, seen by gi - pending egd/colon in 12.08. - had egd = stable, but colon was full of stool - needs repeat next year p double split prep - see below Constipation 96346623 K5 9.00 likely d/t iron qd - but in light of above, rec miralax qd (has been taking ~ wkly lately) == 1/2-1 scoop qd Iron defic iency anemia 49859678 D50.9 mild, persistent d/t donates blood (platelets ) q o wkcont iron c vit c daily10.23 - see above, encouraged pt to call gi to get f/u colonoscop y in a few months as opposed to 1 year == if recheck labs are normal then stop iron supp, and may need miralax qod instead Red left eye 2050955767 1343044 H57.89 s/p scratched cornea - cont drops as per eye , next f/u next wk [id number] Thaddeus Jackson MD Main Office [address] [place] [address] 01/12/2023 10:06:53 01/12/2023 12:36:20 Hypertensive renal disease 69918244 I12.9 bp elevated but likely d/t pain, cont med as dir, recheck next month 01/12/23: BP stable in office today Diabetic p eripheral neuropathy 192738702 E11.40 diet / ex control p bariatric [...] last A1c 6.2 - will get recheck 1. - A1c up to 6.4 - pt declines metformin at this time, but will more strongly encourage if a1c cont to climb 6.23 - A1c stable at 6.3 . - A1c increased at 6.9, fasting glucose 159 (12/09/22) , resume metformin - pt agrees, start c qd to limit potential SE of diarrhea, advance to bid as cruz Chronic pain syndrome 37 6573045 G89.4 see below Psoriatic arthritis 1563 30356 L40.50 stable - cont humira as dir, cont f/u c rheum - f/u c derm prntreated w/ corticoste roid injections in right first MCP 01.08 - had labs for sjogrens - encouraged pt to f/u c rheum (unsure of results) Obstructiv e sleep apnea syndrome 22153893 G47.33 cont bipap as dir, cont f/u c sleep med Spinal coy nosis of lumbar region 35158246 M48.061 stable, s/p multiple back surgeries - [...] turned pt away, pending neurology referral in [facility] l c increasing cylcobenza monalisa to 10mg since not sleeping well - 5mg am, 5mg afternoon, 10mg qhs Leukocytosis 640001891 D 72.829 pt states had elevated wbc ct and mild post op anemia - will check cbc Dry eyes 556438459 H04.1 23 cont meds, f/u c eye md? d/t underlying sjogrens - encouraged pt to f/u c rheum (see above) Depressive disorder 3548 9007 F32.0 stable, cont duloxetine & bupropion & amitriptyl ine thru psychiatri st - cont see q 3 months, no see therapist Chronic ki dney disease stage 2 522197586 N18.2 [id number] JEANMARIE KOWALSKI Main Office [address] [address] 02/20/2023 10:02:09 02/20/2023 10:23:15 Upper respiratory infection 01850669 J06.9 x5 days of a productive cough [...] take tylenol for any discomfort as directed [id number] Thaddeus Jackson MD Main Office [address] [address] 04/13/2023 09:40:46 04/13/2023 11:19:11 Adult health examination 848157513 Z00.00 pt defers pap & mammopt had colonoscop y 10.23 - but aborted d/t full of stool - rec recheck 1 yr, encouraged pt to call them sooner - printed colon report for pt Venereal d isease screening 435948140 Z11.3 Z72.89 F03.90 Mild memor y disturbance 958670408 R41.3 Required work up for referral to Memory Disorder Program.1. Imaging: Provider leave the desired imaging order, and delete the other (MRI or CT)2. Labs3. Perform 6CIT or MMSE mother c h/o dementia mid 60s Arthritis of first carpometacarpal joint of right hand 2985474913 590622 M13.841 pending see ATC in a few days for likely maurilio injxn - meanwhile, rec trial of thumb spica - printed for pt Hypertensi ve renal disease 54038868 I12.9 bp elevated but likely d/t pain, cont med as dir, recheck next month 01/12/23: BP stable in office today 2.24 - stable Diabetic p eripheral neuropathy 788403585 E11.40 diet / ex control p bariatric [...] climb 6.23 - A1c stable at 6.3 11..23 - A1c increased at 6.9, fasting glucose 159 (12/09/22) , resume metformin - pt agrees, start c qd to limit potential SE of diarrhea, advance to bid as cruz 2.24 - check pending labs Iron defic iency anemia 94693067 D50.9 mild, persistent d/t donates blood (platelets [...] a few times/wk Bone density finding 385 297809 M85.89 Body mass index 40+ - severely obese 432128817 E66.01 Z68.41 Chronic ki dney disease stage 2 110598555 N18.2 Mild major depression, single episode 65252427 F32.0 stable, cont duloxetine & bupropion & amitriptyl ine thru psychiatri st - cont see q 3 months, no see therapist [id number] Thaddeus Jackson MD Main Office [address] [facility] [address] [facility] [place] [address] 05/11/2023 10:49:57 05/11/2023 12:07:58 Mild memory disturbance 997211517 R41.3 Required work up for referral to Memory Disorder Program.1. Imaging: Provider leave the desired imaging order, and delete the other (MRI or CT)2. Labs3. Perform 6CIT or MMSE mother c h/o dementia mid 60s 3.24 - pending see specialist - gave phone # and encouraged her to call Psoriatic arthritis 3835 72578 L40.50 stable - cont humira as dir, cont f/u c rheum - f/u c derm prntreated w/ corticoste roid injections in right first MCP 11.23 - had labs for sjogrens - encouraged pt to f/u c rheum (unsure of results) 3.24 - cont f/u c ATC - next is tomorrow, pending begin enbrel Spasm of back muscles 20 5002904 M62.830 pt has been on flexeril in past - requests add'l Spinal coy nosis of lumbar region 08822373 M48.061 stable, s/p multiple back surgeries - [...] turned pt away, pending neurology referral in [facility] l c increasing cyclobenza monalisa to 10mg since not sleeping well - 5mg am, 5mg afternoon, 10mg qhs 3.24 - printed neuro order to call him in [place] [id number] Thaddeus Jackson MD Main Office [address] [facility] [address] [facility] [place] [address] 07/09/2023 10:37:44 07/09/2023 12:19:17 Mild memory disturbance 735261077 R41.3 Required work up for referral to [...] wks for re-eval Diabetic p eripheral neuropathy 273998551 E11.40 diet / ex control p bariatric [...] - recheck labs (overdue) Psoriatic arthritis 1563 17167 L40.50 stable - cont humira as dir, [...] note 2.24 Spasm of back muscles 20 2739535 M62.830 pt has been on flexeril in past - requests add'l 5.24 - sleeps better on prn m relaxer Spinal coy nosis of lumbar region 90463087 M48.061 stable, s/p multiple back surgeries - pt has tolerated anesthesia well in the past Has had 8 back surgeries. Last was [address] Luque. cont hep rec tyl 500mg 1-2 tabs up to 3x/day, reserve naproxen for prn 6.23 - ambulating better c UpWalker 10.23 - worse pain lately, will get [facility] [place] - to consider neural stimulator meanwhile, cont duloxetine as dir, cont gbn - has been on 900mg tid, but trial c prn m relaxer, cont alt ice/heat, cont salonpas - but rec change to o/n 11.23 - [facility] turned pt away, pending neurology referral in [facility] l c increasing cyclobenza monalisa to 10mg since not sleeping well - 5mg am, 5mg afternoon, 10mg qhs 3.24 - printed neuro order to call him in [place] 07.09 - advised by [place] neurosurge on to see local neurologis t = but no consult note to review - will attempt to getmeanwhi le, will get pmr re-eval = looks like she last saw [facility] 2017 = will change to Dr Oneal [id number] Thaddeus Jackson MD Main Office [address] [facility] [address] [facility] [place] [address] 08/17/2023 13:47:25 08/17/2023 15:13:42 Mild memory disturbance 164656264 R41.3 Required work up for referral to Memory Disorder Program.1. Imaging: Provider leave the desired imaging order, and delete the other (MRI or CT)2. Labs3. Perform 6CIT or MMSE parents c h/o dementia mid 60s 3.24 - pending see specialist - gave phone # and encouraged her to call 5. - printed order for pt - encouraged her to calld mri headlabs stablemean while, 6cit slightly worse - from 8 to 10 - will give trial of aricept, f/u 6 wks for re-eval 7.24 - printed order for pt - encouraged her to callscored lower on 6cit - tolerating aricept - cont as dir Diabetic p eripheral neuropathy 642667461 E11.40 diet / ex control p bariatric [...] climb 6.23 - A1c stable at 6.3 11..23 - A1c increased at 6.9, fasting glucose [...] mounjaro Spinal coy nosis of lumbar region 03738851 M48.061 stable, s/p multiple back surgeries - [...] turned pt away, pending neurology referral in [facility] l c increasing cyclobenza monalisa to 10mg since not sleeping well - 5mg am, 5mg afternoon, 10mg qhs 3.24 - printed neuro order to call him in [place] 5.24 - advised by [place] neurosurge on to see local neurologis t = but no consult note to review - will attempt to getludivina stroud, will get pmr re-eval = looks like she last saw [facility] 2017 = will change to Dr Oneal 7.24 - seen by pmr - had xray - next f/u 8.12 Hyperlipidemia 22009842 E78.5 lipids nl, cont statin as dir [id number] Thaddeus Jackson MD Telehealt h [address] [facility] [address] [facility] [place] [address] 11/10/2023 14:23:35 11/11/2023 10:02:02 Obstructive sleep apnea syndrome 02605485 G47.33 cont bipap as dir, cont f/u c sleep med Mild neuro cognitive disorder 514464019 G31.84 Required work up for referral to [...] dose to help prevent withdrawal see tucker sheldon belowpendi ng f/u c Dr. Ortiz on Thursday - she will bring a friend will fwd copy of this note to geriatrics , neuropsych & psychiatri stDr. Chorowski - please communicat e back to us upon receipt of this note - advise of your suggestion s as well - thank you Diabetic p eripheral neuropathy 567014794 E11.40 diet / ex control p bariatric [...] 9.28.24 Spinal coy nosis of lumbar region 99036643 M48.061 stable, s/p multiple back surgeries - [...] turned pt away, pending neurology referral in [facility] l c increasing cyclobenza monalisa to 10mg since not sleeping well - 5mg am, 5mg afternoon, 10mg qhs 3.24 - printed neuro order to call him in [place] 5.24 - advised by [place] neurosurge on to see local neurologis t [...] off her med list Psoriatic arthritis 1563 46083 L40.50 stable - cont humira as dir, cont f/u c rheum - f/u c derm prntreated w/ corticoste roid injections in right first MCP 11. - had labs for sjogrens - encouraged pt to f/u c rheum (unsure of results) 3.24 - cont f/u c ATC - next is tomorrow, pending begin enbrel 5.24 - on embrel x 5-6 wks - minimal help, cont f/u c ATC - rev last ov note 2.24 Mild major depression, single episode 41114954 F32.0 stable, cont duloxetine & bupropion & amitriptyl ine thru psychiatri st - cont see q 3 months, no see therapist .24 - see mild cognitive impairment above - [...] neuropsych rec.kim g see Dr. Montero on [id number] Thaddeus Jackson MD Main Office [address] [facility] [address] [facility] [place] [address] 11/23/2023 10:10:41 11/23/2023 11:28:04 Diabetic peripheral neuropathy 144101628 E11.40 diet / ex control p bariatric [...] check outstandin g labs as directed Asthma 460892474 J45.90 9 10.24 - pt requests refill Gastroesop hageal reflux disease 174993544 K21.9 stable, cont ppi as dir, seen by gi - pending egd/colon in 12.08 - had egd = stable, but colon was full of stool - needs repeat next year p double split prep - see below 10.24 - pt requests refill Mild neuro cognitive disorder [id number] G31.84 Required work up for referral to [...] dose to help prevent withdrawal see tucker sheldon belowpendi ng f/u c Dr. Ortiz on Thursday - she will bring a friend will fwd copy of this note to geriatrics , neuropsych & psychiatri TeodorarRa Montero - please communicat e back to us upon receipt of this note - advise of your suggestion s as well - thank you 10.24 - reviewed geriatrics note - pt states is feeling better, psych lowered amitriptyl ine from 200 to 150mg qhs x past 2 wks --- pt sounds sharper to me today will fwd copy of this note to geriatrics , neuropsych & psychiatri st Spinal coy nosis of lumbar region [id number] M48.061 stable, s/p multiple back surgeries - [...] turned pt away, pending neurology referral in [facility] l c increasing cyclobenza monalisa to 10mg since not sleeping well - 5mg am, 5mg afternoon, 10mg qhs 3.24 - printed neuro order to call him in [place] 5.24 - advised by [place] neurosurge on to see local neurologis t = but no consult note to review - will attempt to getmechuyita le, will get pmr re-eval = looks [...] for severe pain to help sleep)pend ing [facility] c specialist in pain psychology (Dr Parson) as per neuropsych rec. will fwd copy of this ov note to PMR Hyperlipidemia 50998779 E78.5 lipids nl, cont statin as dir [id number] Thaddeus Jackson MD Main Office [address] [place] [address] 02/22/2024 10:02:36 02/22/2024 11:20:54 Diabetic peripheral neuropathy [id number] E11.40 diet / ex control p bariatric [...] - mounjaro not coveredrec heck A1c p 11.14.23 10.24 - encouraged pt to check outstandin g labs as directedwi ll get podiatry re-evalcon t f/u c eye Mild neuro cognitive disorder [id number] G31.84 Required work up for referral to [...] dose to help prevent withdrawal [facility] Dr. Ortiz on Thursday - she will bring a friend will fwd copy of this note to geriatrics , neuropsych & psychiatri TeodorarRa Montero - please communicat e back to us upon receipt of this note - advise of your suggestion s as well - thank you 24 - reviewed geriatrics note - pt states is feeling better, psych lowered amitriptyl ine from 200 to 150mg qhs x past 2 wks --- pt sounds sharper to me today will fwd copy of this note to geriatrics , neuropsych & psychiatri st 1.25 - cont f/u c geriatrics in a few weeks Spinal coy nosis of lumbar region [id number] M48.061 stable, s/p multiple back surgeries - pt has tolerated anesthesia well in the past Has had 8 back surgeries. Last was [address] Luque. cont hep rec tyl 500mg 1-2 tabs up to 3x/day, reserve naproxen for prn 6.23 - ambulating better c [facility] 10.23 - worse pain lately, will get [facility] [place] - to consider neural stimulator meanwhile, cont duloxetine as dir, cont gbn - has been on 900mg tid, but trial c prn m relaxer, cont alt ice/heat, cont salonpas - but rec change to o/n 11.23 - [facility] turned pt away, pending neurology referral in [facility] l c increasing cyclobenza monalisa to 10mg since not sleeping well - 5mg am, 5mg afternoon, 10mg qhs 3.24 - printed neuro order to call him in [place] 5.24 - advised by [place] neurosurge on to see local neurologis t [...] f/u c PMR Vitamin D deficiency 347 21950 E55.9 Hypertensi ve renal disease 92447127 I12.9 bp elevated but likely d/t pain, cont med as dir, recheck next month 01/12/23: BP stable in office today 1.25 - bp stable, cont med as dir, pending check labs p visit Chronic ki dney disease stage 2 [id number] N18.2 Hyperlipidemia 80389421 E78.5 lipids nl, cont statin as dir [id number] Thaddeus Jackson MD Main Office [address] [place] [address] 04/14/2024 10:20:30 04/14/2024 11:31:24 Adult health examination [id number] Z00.00 pt defers pap & mammopt had colonoscop y 10 - but aborted d/t full of stool - rec recheck 1 yr, encouraged pt to call them sooner - printed colon report for pt had labs done 1.. but [facility] didn't do a1c or lipids Diabetic p eripheral neuropathy 985006061 E11.40 diet / ex control p bariatric [...] climb 6.23 - A1c stable at 6.3 11..23 - A1c increased at 6.9, fasting glucose [...] get podiatry re-evalcon t f/u c eye md 2.25 - had labs done .08.10 but [facility] didn't do a1c or lipids - recheck a1cnl microalb last month Mild neuro cognitive disorder [id number] G31.84 Required work up for referral to [...] to help prevent withdrawal see tucker willispendi ng f/u c Dr. Ortiz on Thursday [...] /psych Spinal coy nosis of lumbar region 63402502 M48.061 stable, s/p multiple back surgeries - pt has tolerated anesthesia well in the past Has had 8 back surgeries. Last was [address] Luque. cont hep rec tyl 500mg 1-2 tabs up to 3x/day, reserve naproxen for prn 6.23 - ambulating better c [facility] 10.23 - worse pain lately, will [place] [facility] [place] - to consider neural stimulator meanwhile, cont duloxetine as dir, cont gbn - has been on 900mg tid, but trial c prn m relaxer, cont alt ice/heat, cont salonpas - but rec change to o/n 11.23 - [facility] turned pt away, pending neurology referral in [facility] l c increasing cyclobenza monalisa to 10mg since not sleeping well - 5mg am, 5mg afternoon, 10mg qhs 3.24 - printed neuro order to call him in [place] 5.24 - advised by [place] neurosurge on to see local neurologis t [...] f/u c PMR Vitamin D deficiency 347 49089 E55.9 stable, cont supp as dir Hypertensi ve renal disease 99719821 I12.9 bp elevated but likely d/t pain, cont med as dir, recheck next month 01/12/23: BP stable in office today 1.25 - bp stable, cont med as dir, pending check labs p visit Chronic ki dney disease stage 2 284112409 N18.2 Hyperlipidemia 10709966 E78.5 lipids nl, cont statin as dir 2.25 - recheck Cough 53649832 R05.9 + h/o pna but no h/o asthmamost likely cough d/t pnd - see below - but back up plan -- if no better next week then check cxrhas prn alb at homecont mucinex Acute sinusitis 10953018 J01.90 recommend probiotics while on abxalso rec prn ns spray Body mass index 40+ - severely obese 224234520 E66.01 Z68.41 Moderate m ajor depression 470702 F32.1 stable, cont duloxetine & bupropion & amitriptyl ine thru psychiatri st - cont see q 3 months, no see therapist 11.09 - see mild cognitive impairment above - [...] neuropsych rec.kim miller see Dr. Montero on 2.25 - fairly stable, cont meds, f/u c psych Health Concerns Section Related Observation LastModified by Organization Detai ls LastModified Time None Recorded Concern Status LastModified by Organization Details LastModified Time None Recorded Advance Directives Directive Y: HCP Payers Encounter Date Sequence Insurance Name Policy Number Policy Wilson Covered Member ID Wilson Member ID Guarantor Name 08/17/2023 2 [place] [id number] Fara Crandall Parent [id number] Fara Raz Parent 08/17/2023 1 [place] [employer] Fara Crandall Parent [id number] [id number] Fara Crandall Parent 11/10/2023 2 [place] [id number] Fara Crandall Parent [id number] Fara Crandall Parent 11/10/2023 1 [place] [employer] Fara Crandall Parent [id number] T59 Fara Crandall Parent 11/23/2023 2 [place] [id number] Fara Crandall Parent [id number] Fara Crandall Parent 11/23/2023 1 [place] [employer] Fara Crandall Parent [id number] T59 Fara Crandall Parent 02/22/2024 2 [place] [id number] Fara Crandall Parent [id number] Fara Crandall Parent 02/22/2024 1 [place]: [facility] GOVERNMENT SERVICES Fara Crandall Parent [id number] T59 Fara Crandall Parent 04/14/2024 2 [place] [id number] Fara Crandall Parent [id number] Fara Crandall Parent 04/14/2024 1 MED[place] B[place]: [facility] SERVICES Fara Crandall Parent [id number] T59 Fara Crandall Parent Notes Date Note Type Note Provider Name and Address Organization Details Recorded Time 08/17/2023 text/html here for f/u mul tiple thingsseen by pmr - no note to review - had xray, ? maurilio injxn next [id number] better/lower, tolerating ariceptreviewed recent labs - a1c stable at 6.9 Cora Lara PA-C [address] [address], [place], [address], [facility] 08/17/2023 15:09:15 11/10/2023 text/html visit to jordan [...] be used sparingly Cora Lara PA-C [address] [address], [place], [address], [facility] 11/10/2023 20:49:22 11/23/2023 text/html Diabetes F/URepo rted bypatient.Context:seekaye clarke eye doctor regularly; checking feet regularly Associated [...] effects from medication Cora Lara PA-C [address], [address], [facility] 11/23/2023 21:25:14 02/22/2024 text/html Diabetes F/URepo rted bypatient.Context:seekaye clarke eye doctor regularly; checking feet regularly;not taking aspirin daily Associated Symptoms:no weight gain; no headaches; no increased appetite; no increased urination; no blurred vision Cora Lara PA-C [address], [address], [facility] 02/22/2024 11:24:10 04/14/2024 text/html Medicare Annual Wellness [...] home Here for AWV Cora Lara PA-C [address], [address], [facility] 04/14/2024 11:42:40 OBGyn Episode No OBEpisode recorded.
== END 2024-07-26 08:51 | disposition home or self-care (01) ==
LOC: HO.RHES 08:15
PROVIDERS: PCP Physician Assistant Medical; Visit Provider Internal Medicine Rheumatology
DX: L40.50 Arthropathic psoriasis, unspecified (principal)
CPT/HCPCS: 99214; G2211

== ENCOUNTER → 2024-07-26 08:14 | Outpatient (BNVA) | payer MEDICARE, SELFPAY | PROVIDERS: PCP Physician Assistant Medical; Visit Provider Internal Medicine Rheumatology | DX: Z13.89 Encounter for screening for other disorder (principal) | CPT/HCPCS: 99212 ==

== ENCOUNTER 2024-07-26 09:18 | Outpatient (REF) | payer MEDICARE, SELFPAY ==
[2024-07-26 17:57] LABS: MANUAL DIFF FLAG NO
[2024-07-26 18:18] LABS: Basophils Absolute Auto 0.1 X10*3/uL (0.0-0.2); Basophils Percent Auto 0.5 % (0-2); Eosinophils Absolute Auto 0.4 X10*3/uL (0.0-0.4); Eosinophils Percent Auto 4.1 % (0-4); Hematocrit 43.7 % (37.0-47.0); Hemoglobin 13.6 g/dl (12.0-16.0); Imm Gran Abs Auto 0.02 X10*3/uL (0.00-0.03); Imm Gran Pct Auto 0.2 % (0.0-0.4); Lymphocytes Absolute Auto 3.2 X10*3/uL (1.2-4.9); Lymphocytes Percent Auto 32.8 % (20-40); Mean Corpuscular HGB Conc 31.1 g/dl (31.0-35.0); Mean Corpuscular Hemoglobin 29.6 pg (27.0-33.0); Mean Corpuscular Volume 95.2 fL (80.0-98.0); Mean Platelet Volume 10.5 fL (9.4-12.3); Monocytes Absolute Auto 1.3 X10*3/uL (0.1-1.2); Neutrophils Absolute Auto 4.8 x10*3/uL (2.0-8.3); Neutrophils Percent Auto 49.4 % (45-73); Platelet Count 434 X10*3/uL (160-400); Red Blood Count 4.59 X10*6/uL (4.20-5.50); Red Cell Distribution Width 13.4 % (11.0-16.0); White Blood Count 9.7 X10*3/uL (4.8-10.8)
[2024-07-26 18:38] LABS: Alanine Aminotransferase 29 U/L (0-31); Aspartate Amino Transferase 32 U/L (5-31); C Reactive Protein 0.69 mg/dL (< or = 0.50); Estimated Glomerular Filt Rate > 60
[2024-07-26 19:32] LABS: Erythrocyte Sedimentation Rate 51 MM/HR (0-20)
== END 2024-07-26 09:19 | disposition home or self-care (01) ==
LOC: HO.HKASLDS 09:18
PROVIDERS: Visit Provider Internal Medicine Rheumatology
DX: L40.50 Arthropathic psoriasis, unspecified (principal); Z79.899 Other long term (current) drug therapy; Z79.60 Long term (current) use of unspecified immunomodulators and immunosuppressants
CPT/HCPCS: 36415; 82565; 84450; 84460; 85025; 85652; 86140; 99212

== ENCOUNTER 2024-11-01 08:35 | Outpatient (AMB) | payer MEDICARE, SELFPAY ==
--- NOTE | 2024-11-01 08:36 | A.OFFVIS_ITS ---
Vital Signs 11/01/24 08:40 Height 5 ft 2 in Weight 219 lb 12.814 oz BMI 40.2 BP 130/70 Blood Pressure Location Rt brachial Position Sitting Pulse 98 Pulse Source Pulse Oximeter Pulse Oximetry (%) 98 Oxygen Delivery Method Room Air Intake Visit Reasons: 3 months Intake Note: Patient presents today for patriotic arthritis. Accompanied by: Self / Same As Patient Allergies dexamethasone (From Decadron) Allergy (Intermediate, Verified 07/26/24 08:18) Itchy rash medical tapes Adverse Reaction (Mild, Uncoded 01/21/24 11:11) Rash HPI HPI 3 months: Details: Financial assistance program for [employer] required her to submit her tax information, which patient did not want to disclose. She continues to have pain and swelling in her hands. Morning stiffness hours. No recent infections. She is watching her 4 month here old niece twice a week and continues to work at her [employer]. Prednisone benefit lasted 2 weeks after course was completed. [facility] Medical History Psoriatic arthritis Low back pain Bilateral cataracts FH: cholecystectomy Ulnar nerve compression Surgical History History of hysterectomy S/P tonsillectomy Previous back surgery Physical Exam Vital Signs: Last Vital Signs Pulse 98 11/01/24 08:40 BP 130/70 11/01/24 08:40 Pulse Ox 98 11/01/24 08:40 Oxygen Delivery Method Room Air 11/01/24 08:40 BMI result Body Mass Index 40.2 Const Other: General: Comfortable CVS: RRR Respiratory: clear to auscultation bilaterally. Good respiratory effort Skin: Plaque psoriasis present on bilateral extensor elbows MSK: Synovitis of right IP, bilateral 3rd PIP and left 2-3rd MCP with tenderness. All PIPs are tender. Tender shoulders. 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 Shoulder abduction 90 degrees bilateral. Knee flexion is limited. No tenderness of ankles or MTPs. Assessment & Plan Assessment & Plan (1) Psoriatic arthritis: Comment: Psoriatic arthritis is uncontrolled. She is requiring multiple courses of prednisone to allow her to function while we get DMARD approved. High co-pay for biologics. We discussed next steps in therapy. Discussed side effects, benefits and drug monitoring on methotrexate and Xeljanz. Rheumatology history: Diagnosed in 2006. Secondary treatment failure with Humira and Enbrel (03/2023) Code(s): L40.50 - Arthropathic psoriasis, unspecified Category: Medical Plan: Labs for disease and drug monitoring ordered. After lab results are back, I will send prescription for methotrexate 12.5 mg once weekly and folic acid 1 mg daily. She will need labs 4 months after starting methotrexate. In a month, if she has no change in her symptoms, I will increase methotrexate dose to 20 mg once weekly after lab results are reviewed. 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 Take prednisone with food. 5 mg PO DIRECTED 70 tabs 0RF Coding Level of Care Code Est Pt Level 4 (14999) Complex EM visit Add On G2211 Diagnoses Psoriatic arthritis L40.50
[2024-11-01 08:40] VITALS: BP 130/70; PULSE 98; O2SAT 98; BMI 40.2
--- OUTSIDE RECORDS SUMMARY | 2024-11-01 10:15 | XMS_ITS | Clinical Summary ---
Author Organization [facility] Address [address] [place], [place] [id number] Phone Care Team Providers Care Bulkhead Carpenter Name Role Phone Unavailable Primary Care Provider Unavailabl e Social History Tobacco Use Types Packs/Day Years Used Date Smoking Tobacco: Never Assessed Comments Unknown Sex and Gender Information Value Date Recorded Sex Assigned at Not on file Legal Sex Female 8:32 PM EDT Gender Identity Not on file Sexual Orientation Not on file Plan of Treatment Health Maintenance Due Date Last Done Comments LIPID PANEL 1958 DEPRESSION SCREENING 1970 HEPATITIS C SCREENING 1976 MAMMOGRAM 06/07/2010 06/07/2008 PNEUMOCOCCAL VACCINES (50+ years) (3 of 3 - PCV20 or PCV21) 11/22/2019 11/21/2014, 12/25/1998, 07/18/1995 OSTEOPOROSIS SCREENING INITIAL (ONE-TIME) 2023 COVID-19 VACCINE ( season) 2023 06/17/2021, 12/28/2020, 06/28/2020, Additional history exists Adult Td,Tdap Booster 12/26/2024 12/26/2014 , 03/17/2012, 03/03/2006 RSV VACCINE (1 - 1-dose 75+ series) 2033 ZOSTER VACCINES Completed 05/31/2021, 01/15/2021 COLORECTAL CANCER SCREENING Completed HEPATITIS A VACCINES Aged Out No long er eligible based on patient's age to complete this topic HIB VACCINES Aged Out No longer eligi ble based on patient's age to complete this topic MENINGOCOCCAL VACCINES (ACWY) Aged Out No longer eligible based on patient's age to complete this topic MENINGOCOCCAL VACCINES (B) Aged Out N o longer eligible based on patient's age to complete this topic Medical Devices Not on file Insurance MEDICARE PART A & B MEDICARE PART A & B MEDICARE PART A & B MEDICARE PART A & B MEDICARE PART A & B MEDICARE PART A & B Additional Source Comments The information contained in this document represents components of the legal health record. It is not the complete legal health record.[facility]
== END 2024-11-01 09:30 | disposition home or self-care (01) ==
LOC: HO.RHES 08:35
PROVIDERS: PCP Physician Assistant Medical; Visit Provider Internal Medicine Rheumatology
DX: L40.50 Arthropathic psoriasis, unspecified (principal)
CPT/HCPCS: 99214; G2211

== ENCOUNTER 2024-11-01 08:35 | Outpatient (REF) | payer MEDICARE, SELFPAY ==
[2024-11-01 13:54] LABS: MANUAL DIFF FLAG NO
[2024-11-01 14:02] LABS: Hematocrit 38.6 % (37.0-47.0); Hemoglobin 12.5 g/dl (12.0-16.0); Imm Gran Abs Auto 0.04 X10*3/uL (0.00-0.03); Imm Gran Pct Auto 0.4 % (0.0-0.4); Lymphocytes Absolute Auto 2.9 X10*3/uL (1.2-4.9); Mean Corpuscular HGB Conc 32.4 g/dl (31.0-35.0); Mean Corpuscular Hemoglobin 29.8 pg (27.0-33.0); Mean Corpuscular Volume 91.9 fL (80.0-98.0); NRBC Abs Auto 0.000 X10*3/uL (0.0-0.012); NRBC Pct Auto 0.0 /100WBC (0.0-0.2); Platelet Count 369 X10*3/uL (160-400); Red Blood Count 4.20 X10*6/uL (4.20-5.50); White Blood Count 10.1 X10*3/uL (4.8-10.8)
[2024-11-01 14:20] LABS: Alanine Aminotransferase 20 U/L (0-31); Aspartate Amino Transferase 27 U/L (5-31); Cholesterol 131 mg/dL (<200); Estimated Glomerular Filt Rate > 60; HDL Cholesterol 50 mg/dL (>40); Triglycerides 152 mg/dL (<150)
== END 2024-11-01 08:36 | disposition home or self-care (01) ==
LOC: HO.HKASLDS 08:35
PROVIDERS: PCP Physician Assistant Medical; Visit Provider Internal Medicine Rheumatology
DX: L40.50 Arthropathic psoriasis, unspecified (principal); Z79.631 Long term (current) use of antimetabolite agent; Z79.899 Other long term (current) drug therapy; Z13.6 Encounter for screening for cardiovascular disorders
CPT/HCPCS: 36415; 80061; 82565; 84450; 84460; 85025; 85652; 86140; 99212

== ENCOUNTER 2024-12-06 10:58 | Outpatient (REF) | payer MEDICARE, SELFPAY ==
--- OUTSIDE RECORDS SUMMARY | 2024-12-06 13:49 | XMS_ITS | Data Portability ---
Author Organization [facility], Main Office Address [address] [facility] [address] [place] [address] Care Team Providers Care Banquet Supervisor Name Role Phone JOEL DAO Greenhouse Superintendent VALENTÍN MONTERO Psychiatrist KESHIA COOPER Assisted Living Executive Director CORA LARA Primary Care Provider [phone] CORWIN DAVISON Greenhouse Superintendent [phone] RANDI CAMARENA Neurophysiologist [phone] JASON ONEAL Pain Management DANIEL ORTIZ Geriatric Medicine SHADI CARVALHO Neuropsychologist [phone] TRISTON PENA Cheese Cutter Assessment No assessment recorded. Plan of Treatment Reminders Order Date Submit Date Provider Last Modified By Organization Details Last Modified Time Details Appointments [id number] 2025 08:45A M Cora Lara PA-C Not available Not available Not available Lab HbA1c (hemog lobin A1c), blood 2024 026 [email or web address] (Centralized Electronic Ordering - All Locations), Patient Can Go To The Location Of Their Choice, [id number] 12/01/2024 11:03:47 BMP, serum or plasma 2024 026 [email or web address] [employer] (Centralized [facility] Ordering - All Locations), Patient Can Go To The Location Of Their Choice, [id number] 12/01/2024 11:03:47 microa lbumin /creat inine, mass ratio, urine 2024 026 pmadden [facility] (Centralized Electronic Ordering - All Locations), Patient Can Go To The Location Of Their Choice, 12/01/2024 11:03:47 hemogl obin A1C, finger stick 2024 025 ANDREW In-Office Order, Internal Use Only DO Not Attach Compendium DO Not Attach Compendium, Do Not Delete/merge, [id number] 08/15/2024 13:17:20 HbA1c (hemog lobin A1c), blood 2024 025 ANDREW [facility] (Centralized Electronic Ordering - All Locations), Patient Can Go To The Location Of Their Choice, 11/25/2024 08:07:44 lipid panel, serum 2024 025 ANDREW [facility] (Centralized Electronic Ordering - All Locations), Patient Can Go To The Location Of Their Choice, 11/25/2024 08:07:42 CK (creat ine kinase ), total, serum 2024 025 ANDREW [facility] (Centralized Electronic Ordering - All Locations), Patient Can Go To The Location Of Their Choice, 11/25/2024 08:07:43 vitami n D, 25-hyd willie, total, serum 2024 025 ANDREW [facility], [address] [place], [place] [address], [address], 02/25/2024 20:06:20 microa lbumin /creat inine, mass ratio, urine 2024 025 ANDREW [facility] (Centralized Electronic Ordering [...] The Location Of Their Choice, 11/23/2023 11:22:03 Referral diabet ic ophtha lmolog y referr al 2024 025 [email or web address] Not available 12/01/2024 13:52:51 orthop edic surgeo n referr al 2024 025 ANDREW Govea MD, [address] [place], [address], 09/26/2024 10:51:47 nutrit ionist /dieti juan carlos referr al 2024 025 [email or web address] Not available 04/14/2024 15:53:54 podiat rist referr al 2024 025 laney Baca DPM, [address] [place], [address], 03/26/2024 09:25:27 Procedures None record ed. Surgeries None record ed. Imaging XR, chest, 2 view [facility] [address] [place], [address], 04/28/2024 10:45:37 Medication Orders lisino pril 5 mg tablet 2024 [facility] #12024, [address] [place], [place], [id number], 12/01/2024 11:03:55 cyclob enzapr ine 5 mg tablet 2024 025 [facility] #49241, [address] [place], [place], [id number], 12/01/2024 11:03:53 amoxic illin 875 mg-pot assium clavul anate 125 mg tablet 2024 [facility] #00656, [address] [place], [place], [id number], 08/15/2024 13:13:27 albute rol sulfat e HFA 90 mcg/ac tuatio n aeroso l inhale r 2023 024 [id number] [facility] #70851, [address] [place], [place], [id number], 11/26/2023 01:14:53 cyclob enzapr ine 5 mg tablet 2023 024 [facility] #89289, [address] [place], [place], [id number], 11/23/2023 11:22:01 pantop razole 40 mg tablet ,delay ed releas e 2023 024 [facility] #56702, [address] [place], [place], [id number], 11/23/2023 11:22:01 Patient Targets Encounter Date Encounter Id Patient Goals Patient Target Last Modified By Organization Details Last Modified Time 11/23/2023 [id number] Ongoing of Microalbumin/Cre atinine Ratio yearly Not [...] goal. pmadden Not available 11/23/2023 11:14:05 02/22/2024 [id number] Ongoing of Microalbumin/Cre atinine Ratio yearly Not available Not available Not available predatory animal exterminator goal of Blood Pressure 140 / 90 Not available Not available Not available Ongoing of Blood Pressure 130 / 80 Not available Not available Not available predatory animal exterminator goal of Exercise level Not available Not available Not available predatory animal exterminator goal of Tobacco Smoking Status Not [...] as needed to reflect progress toward goal. Pt advised and agrees to eat a low [...] goal. pmadden Not available 02/22/2024 11:14:57 04/14/2024 [id number] predatory animal exterminator goal of Blood Pressure 140 / 90 Not available Not available Not available senior living goal of Exercise level Not available Not available Not available senior living goal of Tobacco Smoking Status Not available Not available Not available predatory animal exterminator goal of Excess Body Weight Loss % [...] will reinforce achievement of specific weight loss goals. Pt advised and agrees to eat a low [...] as needed to reflect progress toward goal. Pt agrees to follow low fat diet, avoid [...] toward goal. pmadden Not available 04/14/2024 11:40:35 08/15/2024 [id number] Ongoing of Microalbumin/Cre atinine Ratio yearly Not [...] reflect progress toward goal. pmadden Not available 08/16/2024 19:13:47 12/01/2024 [id number] Ongoing of Microalbumin/Cre atinine Ratio yearly Not [...] reflect progress toward goal. pmadden Not available 12/01/2024 12:38:19 Patient Instructions Encounter Date Encounter Id Patient Instructions Last Modified By Organization Details Last Modified Time 11/23/2023 [id number] Medications (OTC , herbal therapies, supplements) reviewed and reconciled with patient and or caregiver, including potential side effects, drug interactions, instructions, and the consequences of not taking medication. Reviewed potential barriers to medication adherence, such as side effects from medication or cost of medication. pmadden Not available 11/23/2023 11:21:58 02/22/2024 [id number] encouraged pt to check outstanding labs as directed pmadden Not available 02/22/2024 10:43:29 Medications (OTC , herbal therapies, supplements) reviewed and reconciled with patient and or caregiver, including potential side effects, drug interactions, instructions, and the consequences of not taking medication. Reviewed potential barriers to medication adherence, such as side effects from medication or cost of medication. pmadden Not available 02/22/2024 10:43:45 04/14/2024 [id number] Starting a Weight-Loss Plan: Care Instructions pmadden Not available 04/14/2024 11:41:26 Nutrition Referral [...] of medication. pmadden Not available 04/14/2024 11:15:58 08/15/2024 [id number] Medications (OTC , herbal therapies, supplements) reviewed and reconciled with patient and or caregiver, including potential side effects, drug interactions, instructions, and the consequences of not taking medication. Reviewed potential barriers to medication adherence, such as side effects from medication or cost of medication. pmadden Not available 08/15/2024 13:33:31 12/01/2024 [id number] Medications (OTC , herbal therapies, supplements) reviewed and reconciled with patient and or caregiver, including potential side effects, drug interactions, instructions, and the consequences of not taking medication. Reviewed potential barriers to medication adherence, such as side effects from medication or cost of medication. pmadden Not available 12/01/2024 10:58:01 Reason for Referral Bread Dough Mixer Referral for Diab etic peripheral neuropathy Referring Physician: Cora Lara, Internal Medicine, Encounter Date: 02/22/2024 Relays Draftsperson/dietitian Refer ral for Body mass index 40+ - severely obese Referring Physician: oCra Lara, Internal Medicine, Encounter Date: 04/14/2024 Orthopedic Surgeon Referral for Pain of right shoulder joint Referring Physician: Cora Lara, Internal Medicine, Encounter Date: 08/15/2024 Diabetic Ophthalmology Refer ral for Diabetic peripheral neuropathy Referring Physician: Cora Lara, Internal Medicine, Encounter Date: 12/01/2024 Results Created Date Observation Date Name Description Value Unit Range Abnormal Flag Note LastModifiedBy Organization Detail LastModifiedTime 02/21/1902/22/2024 COMP. METAB OLIC PANEL (14) glucose 90 mg/dL 70-99 normal Not Available [facility] ([facility]) [address] [facility], [place], [address], 02/25/2024 20:06:18 02/21/1902/22/2024 COMP. METAB OLIC PANEL (14) BUN 11 mg/dL 8-27 normal Not Available [facility] ([facility]) [address] [facility] [place] [place], [address], 02/25/2024 20:06:18 02/21/19 25 02/22/2024 COMP. METAB OLIC PANEL (14) creatinine 0.86 mg/dL 0.57-1 .00 normal Not Available [facility] ([facility]) [address] [facility] [place] [place], [address], 02/25/2024 20:06:18 02/21/19 25 02/22/2024 COMP. METAB OLIC PANEL (14) eGFR 75 mL/mi n/1.7 3 >59 normal Not Available [facility] ([facility]) [address] [facility] [place], [address], 02/25/2024 20:06:18 02/21/19 25 02/22/2024 COMP. METAB OLIC PANEL (14) BUN/creatini ne ratio 13 12-28 normal Not Available [facility] ([facility]) [address] [facility] [place], [address], 02/25/2024 20:06:18 02/21/19 25 02/22/2024 COMP. METAB OLIC PANEL (14) sodium 138 mmol/ L 134-14 4 normal Not Available [facility] ([facility]) [address] [facility] [place] [place], [address], 02/25/2024 20:06:18 02/21/19 25 02/22/2024 COMP. METAB OLIC PANEL (14) potassium 4.6 mmol/ L 3.5-5. 2 normal Not Available [facility] ([facility]) [address] [facility] [place], [address], 02/25/2024 20:06:18 02/21/19 25 02/22/2024 COMP. METAB OLIC PANEL (14) chloride 99 mmol/ L 96-106 normal Not Available [facility] ([facility]) [address] [place], [address], 02/25/2024 20:06:18 02/21/19 25 02/22/2024 COMP. METAB OLIC PANEL (14) carbon dioxide, total 24 mmol/ L 20-29 normal Not Available [facility] ([facility]) [address] [place], [address], 02/25/2024 20:06:18 02/21/19 25 02/22/2024 COMP. METAB OLIC PANEL (14) calcium 9.5 mg/dL 8.7-10 .3 normal Not Available [facility] ([facility]) [address] [place], [address], 02/25/2024 20:06:18 02/21/19 25 02/22/2024 COMP. METAB OLIC PANEL (14) protein, total 6.9 g/dL 6.0-8. 5 normal Not Available [facility] ([facility]) [address] [place], [address], 02/25/2024 20:06:18 02/21/19 25 02/22/2024 COMP. METAB OLIC PANEL (14) albumin 4.2 g/dL 3.9-4. 9 normal Not Available [facility] ([facility]) [address] [place], [address], 02/25/2024 20:06:18 02/21/19 25 02/22/2024 COMP. METAB OLIC PANEL (14) globulin, total 2.7 g/dL 1.5-4. 5 Not Available [facility] ([facility]) [address] [place], [address], 02/25/2024 20:06:18 02/21/19 25 02/22/2024 COMP. METAB OLIC PANEL (14) bilirubin, total 0.3 mg/dL 0.0-1. 2 normal Not Available [facility] ([facility]) [address] [facility], [place], [address], 02/25/2024 20:06:18 02/21/19 25 02/22/2024 COMP. METAB OLIC PANEL (14) alkaline phosphatase 68 IU/L 44-121 normal Not Available [facility]) [address] [facility] [place], [address], 02/25/2024 20:06:18 02/21/19 25 02/22/2024 COMP. METAB OLIC PANEL (14) AST (SGOT) 16 IU/L 0-40 normal Not Available [facility] ([facility]) [address] [facility] [place] [place], [address], 02/25/2024 20:06:18 02/21/19 25 02/22/2024 COMP. METAB OLIC PANEL (14) ALT (SGPT) 16 IU/L 0-32 normal Not Available [facility] ([facility]) [address] [facility], [place], [address], 02/25/2024 20:06:18 02/21/19 25 02/25/2024 ALBUM IN/CR EAT RATIO , RANDO M UR creatinine, urine 51.9 mg/dL not estab. normal Not Available [facility] ([facility]) [address] [facility], [place], [address], 02/25/2024 20:06:19 02/21/19 25 02/25/2024 ALBUM IN/CR EAT RATIO , RANDO M UR albumin, urine <3.0 ug/mL not estab. Not Available [facility] ([facility]) [address] [place], [address], 02/25/2024 20:06:19 02/21/19 25 02/25/2024 ALBUM IN/CR EAT RATIO , RANDO M UR alb/creat ratio <6 mg/g_ creat 0-29 Marilynn l: 0 - 29 Moder ately incre ased: 30 - 300 Sever felicitas incre ased: >300 Not Available [facility] ([facility]) [address] [facility], [place], [address], 02/25/2024 20:06:19 02/21/19 25 02/23/2024 VITAM IN [...] 1. IOM (Inst itute of Medic ine). 2010. Matt ry refer ricardoe anny es for calci um and D. Laurence hunter [place]: The [facility]io [facility]al [facility] Press . 2. Chong foster MF, Pau luna [place], Bharti off-F errar i OLIVEIRA, et al. Evalu ation , treat ment, and preve ntion of vitam in D defic iency : an Endoc rine Socie ty clini bettie pract ice guide line. JCEM. 2010; 96(7) :1911 -30. Not Available [facility] ([facility]) [address] [facility], [place], [address], 02/25/2024 20:06:20 08/16/1908/15/2024 hemog lobin A1C, finge rstic k A1C 6.4 % 4-6 Not Available In-Office Order Internal Use Only DO Not Attach Compendium DO Not Attach Compendium, Do Not Delete/merge, [id number] 08/15/2024 13:02:05 Result Notes None recorded. Problems Name Problem SNOMED Code Status Onset Date Resolution Date Notes Provider Name and Address Organization Details Recorded Time Asthma 009856283 Active Not Available [facility] 19:50:26 Chronic pain syndrome 748855145 Active Not Available [facility] 4 19:50:26 Depressi ve disorder 63900712 Completed 02/26/2015 Meme miranda, [facility] 4 15:15:46 Type 2 diabetes mellitus without complica tion 841028640 Completed 05/01/2017 MEDINA Rouse, [facility] 9 11:30:03 Gastroes ophageal reflux disease 850197733 Active Not Available [facility] 4 19:50:26 Essentia l hyperten krsi 39263883 Completed 03/15/2022 Cora Lara PA-C [address], [place], [address] , [facility] 3 10:04:39 Tobacco user 453631920 Completed 08/29/2015 MEDINA Rouse, [facility] 6 09:59:57 History of clinical finding in subject 123701219 Completed 01/29/2016 MEDINA Rouse, [facility] 6 10:42:37 Adult health examinat ion Completed 01/29/2016 MEDINA Rouse, [facility] 6 10:42:26 Hyperlip idemia 65062593 Active Not Available [facility] 4 19:50:26 Spinal stenosis of lumbar region 97749473 Active Not Available [facility] 4 19:50:26 Obstruct kaye sleep apnea syndrome 12372174 Completed 06/18/2020 Cora Lara PA-C [address], [place], [address] , [facility] 1 11:29:15 Localize d, primary osteoart hritis of the shoulder region 406845792 Completed 03/15/2022 Cora Lara PA-C [address], [place], [address] , [facility] 3 10:06:07 Gastroin testinal obstruct ion 785886789 Completed 11/04/2016 Jason Irizarry MD [address], [place], [address] , [facility] 7 08:33:12 Persiste nt insomnia 147949178 Active Not Available [facility] 4 19:50:26 Psoriasi s 8276550 Completed 03/15/2022 Cora Lara PA-C [address], [place], [address] , [facility] 3 10:06:55 Rheumato id arthriti s 86428730 Completed 11/04/2016 Jason Irizarry MD [address], [place], [address] , [facility] 7 08:33:58 Morbid obesity 777785530 Active Not Available [facility] 4 19:50:26 Conducti on disorder of the heart 62397330 Active Not Available [facility] 4 19:50:26 Vitamin D deficien cy 00846690 Active Not Available [facility] 4 19:50:26 Body mass index 40+ - severely obese 643623159 Completed 02/27/2015 Meme miranda, [facility] 3 10:07:59 Acute sinusiti s 30618535 Completed 01/29/2016 MEDINA Rouse, [facility] 6 10:42:01 Sinusiti s 80843910 Completed 01/29/2016 MEDINA Rouse, [facility] 6 10:42:32 Body mass index 30+ - obesity 590798758 Completed 03/15/2022 Cora Lara PA-C [address], [place], [address] , [facility] 3 10:03:53 Low back pain 356726111 Completed 03/13/2022 Cora Lara PA-C [address], [place], [address] , [facility] 3 14:00:57 Major depressi ve disorder 451393344 Completed 03/15/2022 Cora Lara PA-C [address], [place], [address] , [facility] 3 10:05:36 Blood in urine 34064486 Completed 07/02/2016 Maritza miranda, [facility] 7 14:02:09 Diarrhea 98739089 Completed 01/29/2016 MEDINA Rouse, [facility] 6 10:42:42 Right lower quadrant pain 800098244 Completed 11/03/2016 MEDINA Rouse, [facility] 7 13:03:20 Pain of shoulder region 81046349 Completed 07/02/2016 Maritza miranda, [facility] 7 14:02:03 Knee pain Completed 07/02/2016 Maritza miranda, [facility] 7 14:02:00 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 36919786 Active Not Available [facility] 4 19:50:27 Type 2 diabetes mellitus without complica tion 355307237 Completed 10/12/2018 well controll ed after bariatri c surgery in 12/2013 MEDINA Rouse, [facility] 9 11:30:03 Electroc ardiogra m abnormal 802621259 Completed 200708/30/2013 RECORDED 10/01/19 08 8:29AM BY DELORIS MILAN MA, ANNOTATI ON/ADDEN DUM MEDINA Rouse, [facility] 6 10:51:32 Acute bronchit is 57726302 Completed 200708/30/2013 RECORDED 10/01/19 08 8:29AM BY DELORIS MILAN MA, ANNOTATI ON/ADDEN DUM Deloris chauhan MA null, [facility] 6 10:51:32 Knee pain Completed 200708/30/2013 RECORDED 10/01/19 08 8:30AM BY DELORIS MILAN MA, ANNOTSILVER ON/ADDEN DUM Maritza Barragan MA null, [facility] 7 14:02:00 Electroc julianbritany m abnormal 954418073 Completed 200709/26/2013 RECORDED 10/01/19 08 8:29AM BY DELORIS MILAN MA, ANNOTATI ON/ADDEN DUM Deloris chauhan MA null, [facility] 6 10:51:32 Acute bronchit is 76977032 Completed 200709/26/2013 RECORDED 10/01/19 08 8:29AM BY DELORIS MILAN MA, MIGDALIA ON/ADDEN DUM MEDINA Rouse, [facility] 6 10:51:32 Knee pain Completed 200709/26/2013 RECORDED 10/01/19 08 8:30AM BY DELORIS MILAN MA, ANNOTSILVER ON/ADDEN DUM Maritza miranda, [facility] 7 14:02:00 Dysphagi a 14892092 Completed 200708/30/2013 RESOLVED DATE: 01/20/20 08; RECORDED 01/20/20 08 4:23PM BY JORGE Rai NP, ANNOTSILVER ON/ADDEN DUM MEDINA Rouse, [facility] 6 10:51:32 Dysphagi a 20907273 Completed 200709/26/2013 RESOLVED DATE: 01/20/20 08; RECORDED 01/20/20 4:23PM BY JORGE Rai NP, ANNOTATI ON/ADDEN DUM Deloris Cormier-MEDINA Greene, [facility] 6 10:51:32 Cellulit is and abscess of face 047490928 Completed 200808/30/2013 RESOLVED DATE: 07/04/19 09; IMPRESSI ON: PT IS IMMUNE SUPPRESS ED WITH HUMIRA FOR RA, TREAT WITH LEVAQUIN ; RECORDED 07/04/19 9:11PM BY JORGE Rai NP, MIGDALIA ON/ADDEN DUM MEDINA Rouse, [facility] 6 10:51:32 Ulcerati ve rhinitis 01555998 Completed 200808/30/2013 DATE: 07/04/19; RECORDED 09/04/19 12:56PM BY DELORIS MILAN MA, MIGDALIA ON/ADDEN MEDINA Engel, [facility] 6 10:51:32 Otitis media 48017924 Completed 200808/30/2013 RESOLVED DATE: 07/04/19; RECORDED 07/04/19 9:11PM BY JORGE Rai NP, MIGDALIA ON/ADDEN DUM MEDINA Rouse, [facility] 6 10:51:32 Cellulit is and abscess of face 718959747 Completed 200809/26/2013 RESOLVED DATE: 07/04/19 09; IMPRESSI ON: PT IS IMMUNE SUPPRESS ED WITH HUMIRA FOR RA, TREAT WITH LEVAQUIN ; RECORDED 07/04/19 9:11PM BY JORGE Rai NP, ANNOTATI ON/ADDEN DUM Deloris Genia-Ma MEDINA chauhan, [facility] 6 10:51:32 Ulcerati ve rhinitis 38469854 Completed 200809/26/2013 DATE: 07/04/19 09; RECORDED 09/04/19 12 12:56PM BY DELORIS MILAN MA, ANNOTATI ON/ADDEN DUM Deloris Genia-MEDINA Greene, [facility] 6 10:51:32 Otitis media 52055663 Completed 200809/26/2013 RESOLVED DATE: 07/04/19; RECORDED 07/04/19 09 9:11PM BY JORGE Rai NP, ANNOTATI ON/ADDEN DUM Deloris Genia-MEDINA Greene, [facility] 6 10:51:32 Lyme disease 82080886 Completed 201008/30/2013 RECORDED 02/18/19 11 1:17PM BY JASON IRIZARRY MD, ANNOTATI ON/ADDEN DUM Deloris Genia-MEIDNA Greene, [facility] 6 10:51:32 Lyme disease 26629061 Completed 201009/26/2013 RECORDED 02/18/19 11 1:17PM BY JASON IRIZARRY MD, ANNOTATI ON/ADDEN DUM Deloris Genia-MEDINA Greene, [facility] 6 10:51:32 Immunosu ppressio n 87161104 Completed 201108/30/2013 RECORDED 04/23/19 12 1:24PM BY MIGDALIA MEZA ON/ADDEN DUM Deloris Genia-MEDINA Greene, [facility] 6 10:51:32 Immunosu ppressio n 98684872 Completed 201109/26/2013 RECORDED 04/23/19 12 1:24PM BY MIGDALIA MEZA ON/ADDEN DUM Deloris Genia-MEDINA Greene, [facility] 6 10:51:32 Intrinsi c asthma 846885671 Completed 201108/30/2013 RECORDED 09/04/19 12 12:56PM BY DELORIS MILAN MA, ANNOTATI ON/ADDEN DUM MEDINA Rouse, [facility] 6 10:51:32 Screenin g for malignan t neoplasm of colon Completed 201108/30/2013 RECORDED 09/04/19 12 12:56PM BY DELORIS MILAN MA, ANNOTSILVER ON/ADDEN DUM MEDINA Rouse, [facility] 6 10:51:32 General symptom 925056616 Completed 201108/30/2013 STORY: SIGNIFIC ANT DECREASE IN EXERCISE TOLERANC E WITH TACHYCAR MARGARETH.; RECORDED 09/04/19 12 12:56PM BY DELORIS MILAN MA, ANNOTSILVER ON/ADDEN DUM MEDINA Rouse, [facility] 6 10:51:32 Exophtha lmos 49191059 Completed 201108/30/2013 RECORDED 09/04/19 12 12:56PM BY DELORIS MILAN MA, ANNOTSILVER ON/ADDEN DUM MEDINA Rouse, [facility] 6 10:51:32 Kidney stone 31549730 Completed 201108/30/2013 RECORDED 09/04/19 12 12:56PM BY DELORIS MILAN MA, ANNOTSILVER ON/ADDEN DUM MEDINA Rouse, [facility] 6 10:51:32 Bursitis 83097867 Completed 201108/30/2013 RECORDED 09/04/19 12 12:56PM BY DELORIS MILAN MA, ANNOTSILVER ON/ADDEN DUM MEDINA Rouse, [facility] 6 10:51:32 Acute respirat ory failure 33183493 Completed 201108/30/2013 RECORDED 09/04/19 12 12:56PM BY DELORIS MILAN MA, ANNOTATI ON/ADDEN DUM MEDINA Rouse, [facility] 6 10:51:32 Esskarina l hyperten kris 56234501 Completed 201108/30/2013 RECORDED 09/04/19 12 12:56PM BY DELORIS MILAN MA, ANNOTATI ON/ADDEN DUM Cora Lara PA-C [address] [facility] [address], [place], [address] , [facility] 3 10:04:39 Intrinsi c asthma 874601855 Completed 201109/26/2013 RECORDED 09/04/19 12 12:56PM BY DELORIS MILAN MA, ANNOTATI ON/ADDEN DUM MEDINA Rouse, [facility] 6 10:51:32 Screenin g for malignan t neoplasm of colon Completed 201109/26/2013 RECORDED 09/04/19 12 12:56PM BY DELORIS MILAN MA, ANNOTSILVER ON/ADDEN DUM MEDINA Rouse, [facility] 6 10:51:32 General symptom 752678220 Completed 201109/26/2013 STORY: SIGNIFIC ANT DECREASE IN EXERCISE TOLERANC E WITH TACHYCAR MARGARETH.; RECORDED 09/04/19 12 12:56PM BY DELORIS MILAN MA, ANNOTSILVER ON/ADDEN DUM MEDINA Rouse, [facility] 6 10:51:32 Exophtha lmos [id number] Completed 201109/26/2013 RECORDED 09/04/19 12 12:56PM BY DELORIS MILAN MA, ANNOTSILVER ON/ADDEN DUM MEDINA Rouse, [facility] 6 10:51:32 Kidney stone 69115309 Completed 201109/26/2013 RECORDED 09/04/19 12 12:56PM BY DELORIS MILAN MA, ANNOTATI ON/ADDEN DUM MEDINA Rouse, [facility] 6 10:51:32 Bursitis 90062188 Completed 201109/26/2013 RECORDED 09/04/19 12 12:56PM BY DELORIS MILAN MA, ANNOTATI ON/ADDEN DUM MEDINA Rouse, [facility] 6 10:51:32 Acute respirat ory failure [id number] Completed 201109/26/2013 RECORDED 09/04/19 12 12:56PM BY DELORIS MILAN MA, ANNOTATI ON/ADDEN DUM MEDINA Rouse, [facility] 6 10:51:32 Adult health examinat ion Completed 201108/30/2013 RECORDED 12/16/19 12 9:06AM BY DELORIS MILAN MA, ANNOTSILVER ON/ADDEN DUM MEDINA Rouse, [facility] 6 10:42:26 Tobacco dependen ce syndrome 42415693 Completed 201108/30/2013 RECORDED 12/16/19 12 9:07AM BY DELORIS MILAN MA, ANNOTSILVER ON/ADDEN DUM MEDINA Rouse, [facility] 6 10:51:32 Tobacco dependen ce syndrome 36895506 Completed 201109/26/2013 RECORDED 12/16/19 12 9:07AM BY DELORIS MILAN MA, ANNOTSILVER ON/ADDEN DUM MEDINA Rouse, [facility] 6 10:51:32 Peptic ulcer 60397160 Completed 201208/30/2013 RECORDED 03/11/19 13 1:05AM BY JORGE Rai NP, MIGDALIA ON/ADDEN DUM MEDINA Rouse, [facility] 6 10:51:32 Peptic ulcer 93300960 Completed 201209/26/2013 RECORDED 03/11/19 13 1:05AM BY JORGE Rai NP, MIGDALIA ON/ADDEN DUM MEDINA Rouse, [facility] 6 10:51:32 Chronic pain syndrome 493432330 Completed 201208/30/2013 RECORDED 03/17/19 13 9:38AM BY DELORIS MILAN MA, ANNOTATI ON/ADDEN DUM MEDINA Rouse, [facility] 6 10:51:32 Diarrhea 12253943 Completed 201208/30/2013 IMPRESSI ON: RESOLVIN G PER PT. HAD A FORMED STOOL. SHE DID NOT DO THE STOOL TESTING AND WILL HOLD OFF SINCE DOES NOT HAVE LIQUID STOOL.; RECORDED 03/17/19 13 9:35AM BY DELORIS MILAN MA, ANNOTATI ON/ADDEN DUM MEDINA Rouse, [facility] 6 10:42:42 Diarrhea 08671513 Completed 201209/26/2013 IMPRESSI ON: RESOLVIN G PER PT. HAD A FORMED STOOL. SHE DID NOT DO THE STOOL TESTING AND WILL HOLD OFF SINCE DOES NOT HAVE LIQUID STOOL.; RECORDED 03/17/19 13 9:35AM BY DELORIS MILAN MA, ANNOTATI ON/ADDEN DUM MEDINA Rouse, [facility] 6 10:42:42 Long-ter m drug therapy Completed 201208/30/2013 RECORDED 05/19/19 13 12:57PM BY DELORIS MILAN MA, ANNOTATI ON/ADDEN DUM MEDINA Rouse, [facility] 6 10:51:32 Renewal of prescrip tion Completed 201208/30/2013 RECORDED 05/19/19 13 12:57PM BY DELORIS MILAN MA, ANNOTSILVER ON/ADDEN DUM MEDINA Rouse, [facility] 6 10:51:32 Administ ration of diphther ia and tetanus vaccine Completed 201208/30/2013 RECORDED 05/19/19 13 12:57PM BY DELORIS MILAN MA, ANNOTATI ON/ADDEN DUM MEDINA Rouse, [facility] 6 10:51:32 Long-ter m drug therapy Completed 201209/26/2013 RECORDED 05/19/19 13 12:57PM BY DELORIS MILAN MA, ANNOTATI ON/ADDEN DUM MEDINA Rouse, [facility] 6 10:51:32 Renewal of prescrip tion Completed 201209/26/2013 RECORDED 05/19/19 13 12:57PM BY DELORIS MILAN MA, ANNOTSILVER ON/ADDEN DUM MEDINA Rouse, [facility] 6 10:51:32 Administ ration of diphther ia and tetanus vaccine Completed 201209/26/2013 RECORDED 05/19/19 13 12:57PM BY DELORIS MILAN MA, ANNOTSILVER ON/ADDEN DUM MEDINA Rouse, [facility] 6 10:51:32 Acute asthma 852581202 Completed 201208/30/2013 RECORDED 06/25/19 13 2:34PM BY DELORIS MILAN MA, ANNOTATI ON/ADDEN DUM Delorisnishant chauhan MA null, [facility] 6 10:51:32 Acute sinusiti s 47296291 Completed 201208/30/2013 RECORDED 06/25/19 13 2:34PM BY DELORIS MILAN MA, ANNOTATI ON/ADDEN DUM Deloris chauhan MA null, [facility] 6 10:42:01 Cough [id number] Completed 201208/30/2013 RECORDED 06/25/19 13 2:34PM BY DELORIS MILAN MA, ANNOTATI ON/ADDEN DUM Deloris chauhan MA null, [facility] 6 10:51:32 Acute asthma 483648056 Completed 201209/26/2013 RECORDED 06/25/19 13 2:34PM BY DELORIS MILAN MA, ANNOTATI ON/ADDEN DUM Deloris chauhan MA null, [facility] 6 10:51:32 Acute sinusiti s 22900216 Completed 201209/26/2013 RECORDED 06/25/19 13 2:34PM BY DELORIS MILAN MA, ANNOTATI ON/ADDEN DUM Deloris chauhan MA null, [facility] 6 10:42:01 Cough [id number] Completed 201209/26/2013 RECORDED 06/25/19 13 2:34PM BY DELORIS MILAN MA, ANNOTATI ON/ADDEN DUM MEDINA Rouse, [facility] 6 10:51:32 Screenin g for malignan t neoplasm of breast Completed 201208/30/2013 RECORDED 09/21/19 13 12:45PM BY ARLIN LIGHT MA, ANNOTATI ON/ADDEN DUM MEDINA Rouse, [facility] 6 10:51:32 Edema [id number] Completed 201208/30/2013 RECORDED 09/21/19 13 12:45PM BY ARLIN LIGHT MA, ANNOTATI ON/ADDEN DUM Deloris MEDINA Levin [facility] 6 10:51:32 Leukocyt osis 537741163 Completed 201208/30/2013 RECORDED 09/21/19 13 12:45PM BY ARLIN LIGHT MA, ANNOTATI ON/ADDEN DUM DelorisMEDINA Chávez [facility] 6 10:51:32 Urine finding [id number] Completed 201208/30/2013 IMPRESSI ON: ADD CULTURE; RECORDED 09/21/19 13 12:45PM BY ARLIN LIGHT MA, ANNOTATI ON/ADDEN DUM [facility] 10:51:32 Dyspnea 996757701 Completed 201208/30/2013 RECORDED 09/21/19 13 12:45PM BY ARLIN LIGHT MA, ANNOTATI ON/ADDEN DUM Deloris MEDINA Levin [facility] 6 10:51:32 Disorder of bursa of shoulder region 26059334 Completed 201208/30/2013 STORY: SHAYAN Javed HAS BEEN FOLLOWED BY DR. RAMACHANDRAN FOR RHEUMATO LOGY. UNDERLYI NG DIAGNOSI S OF RA AND PSORIATI C ARTHRITI S. HAS BEEN ON HUMIRA; RECORDED 09/21/19 13 12:45PM BY ARLIN LIGHT MA, ANNOTATI ON/ADDEN DUM MEDINA Rouse [facility] 6 10:51:32 Full thicknes s rotator cuff tear 520094926 Completed 201208/30/2013 RECORDED 09/21/19 13 12:45PM BY ARLIN KULDEEP, MA, ANNOTATI ON/ADDEN DUM Deloris Genia-MEDINA Greene, [facility] 6 10:51:32 Screenin g for malignan t neoplasm of breast Completed 201209/26/2013 RECORDED 09/21/19 13 12:45PM BY ARLIN LIGHT MA, ANNOTATI ON/ADDEN DUM Deloris Genia-MEDINA Greene, [facility] 6 10:51:32 Edema [id number] Completed 201209/26/2013 RECORDED 09/21/19 13 12:45PM BY ARLIN LIGHT MA, ANNOTATI ON/ADDEN DUM Deloris Genia-MEDINA Greene, [facility] 6 10:51:32 Leukocyt osis 487868442 Completed 201209/26/2013 RECORDED 09/21/19 13 12:45PM BY ARLIN LIGHT MA, ANNOTATI ON/ADDEN DUM Deloris Genia-MEDINA Greene, [facility] 6 10:51:32 Urine finding [id number] Completed 201209/26/2013 IMPRESSI ON: ADD CULTURE; RECORDED 09/21/19 13 12:45PM BY ARLIN LIGHT MA, ANNOTATI ON/ADDEN DUM Deloris Genia-MEDINA Greene, [facility] 6 10:51:32 Dyspnea 909507449 Completed 201209/26/2013 RECORDED 09/21/19 13 12:45PM BY ARLIN LIGHT MA, ANNOTSILVER ON/ADDEN DUM Deloris Genia-MEDINA Greene, [facility] 6 10:51:32 Disorder of bursa of shoulder region 73519014 Completed 201209/26/2013 STORY: SHAYAN Javed HAS BEEN FOLLOWED BY DR. RAMACHANDRAN FOR RHEUMATO LOGY. UNDERLYI NG DIAGNOSI S OF RA AND PSORIATI C ARTHRITI S. HAS BEEN ON HUMIRA; RECORDED 09/21/19 13 12:45PM BY ARLIN LIGHT MA, ANNOTATI ON/ADDEN DUM MEDINA Rouse, [facility] 6 10:51:32 Full thicknes s rotator cuff tear 831860515 Completed 201209/26/2013 RECORDED 09/21/19 13 12:45PM BY ARLIN LIGHT MA, ANNOTATI ON/ADDEN DUM MEDINA Rouse, [facility] 6 10:51:32 Influenz a vaccine needed 49887136646 06 Completed 201208/30/2013 RECORDED 10/23/19 13 4:09PM BY AUDIE OLIVARES, OFFICE VISIT MEDINA Rouse, [facility] 6 10:51:32 Influenz a vaccine needed 03788948150 Completed 201209/26/2013 RECORDED 10/23/19 13 4:09PM BY AUDIE OLIVARES, OFFICE VISIT MEDINA Rouse, [facility] 6 10:51:32 Malaise and fatigue 512524458 Completed 201208/30/2013 RECORDED 12/12/19 13 8:53AM BY DELORIS MILAN MA, ANNOTATI ON/ADDEN DUM MEDINA Rouse, [facility] 6 10:51:32 Malaise and fatigue 067018309 Completed 201209/26/2013 RECORDED 12/12/19 13 8:53AM BY DELORIS MILAN MA, ANNOTATI ON/ADDEN DUM MEDINA Rouse, [facility] 6 10:51:32 Pre-surg asher evaluati on Completed 201208/30/2013 IMPRESSI [...] DELORIS MILAN MA, ANNOTATI ON/ADDEN DUM Deloris Genia-MEDINA Greene, [facility] 6 10:51:32 Pre-surg asher evaluati on Completed 201209/26/2013 MICKYI ON: WILL NEED CARDIOLO GY TO ALSO [...] DELORIS MILAN MA, ANNOTATI ON/ADDEN DUM Deloris Genia-MEDINA Greene, [facility] 6 10:51:32 Follow-u p encounte r Completed 201308/30/2013 RECORDED 05/12/19 14 2:21PM BY ANAMARIA RIVERA MA, ANNOTATI ON/ADDEN DUM MEDINA Rouse, [facility] 6 10:51:32 Laborato ry procedur e performe d [id number] Completed 201308/30/2013 RECORDED 05/12/19 14 2:21PM BY ANAMARIA RIVERA MA, ANNOTATI ON/ADDEN DUM Deloris Genia-MEDINA Greene, [facility] 6 10:51:32 Follow-u p encounte r Completed 201309/26/2013 RECORDED 05/12/19 14 2:21PM BY ANAMARIA RIVERA MA, ANNOTATI ON/ADDEN MEDINA Engel, [facility] 6 10:51:32 Laborato ry procedur e performe d [id number] Completed 201309/26/2013 RECORDED 05/12/19 14 2:21PM BY ANAMARIA RIVERA MA, ANNOTATI ON/CHARLEE MEDINA Engel, [facility] 6 10:51:32 Ex-smoke r 9418129 Active 2015 Not Available [facility] 4 19:50:27 Diabetic peripher al neuropat hy 950360506 Active 2016 Not Available [facility] 4 19:50:26 Vitamin B12 deficien cy (non anemic) 91509737 Active 2017 Not Available [facility] 4 19:50:26 Muscle pain 68280042 Active 2017 Not Available [facility] 4 19:50:27 Type 2 diabetes mellitus 84224527 Completed 201805/24/2018 MEDINA Rouse, [facility] 9 14:25:08 Hypergly cemia 15818962 Completed 201803/15/2022 Cora Lara PA-C [address], [place], [address] , [facility] 3 10:04:55 Obesity 657544836 Completed 201806/18/2020 Fabi Bates RN null, [facility] 1 15:35:04 Obstruct kaye sleep apnea of adult 05885404045 03 Completed 202003/13/2022 Dx: G47.33 (mild) Cora Lara PA-C [address], [place], [address] , [facility] 3 13:58:48 Obstruct kaye sleep apnea syndrome 47602147 Active 2020 Not Available [facility] 4 19:50:27 Severe dry skin 593767858 Active 2020 Not Available [facility] 4 19:50:27 Psoriati c arthriti s 987520962 Active 2021 Not Available [facility] 4 19:50:26 Pain of right shoulder joint 44032467985 038844 Active 2021 Cora Lara PA-C [address], [place], [address] , [facility] 5 19:13:39 COVID-19 479477953 Active 2022 Not Available [facility] 4 19:50:27 Pneumoni tis 145934265 Completed 202203/15/2022 Cora Lara PA-C [address], [place], [address] , [facility] 3 10:06:45 Hyperten sive renal disease 85153813 Active 2022 Not Available [facility] 4 19:50:26 Chronic kidney disease stage 2 303986512 Active 2022 Not Available [facility] 4 19:50:26 Iron deficien cy anemia 38543010 Active 2022 Not Available [facility] 4 19:50:27 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 78631818627 52033 Active 2023 Cora Lara PA-C [address], [place], [address] , [facility] 4 10:51:38 Mild memory disturba nce 462966159 Completed 202311/23/2023 Cora Lara PA-C [address], [place], [address] , [facility] 4 11:03:27 Mild major depressi on, single episode 88362025 Active 2023 Meme Fernandez null, [facility] 4 15:15:35 Mild neurocog nitive disorder 008847698 Active 2023 Cora Lara PA-C [address] [facility] [address], [facility] [place], [address] , [facility] 4 14:50:45 Notes:Some problems listed i n Documents: #[id number], #[id number], #[id number] could not be added to this patient's chart. Please review these documents and add these problems to the patient's chart manually as needed. Problem Notes None recorded. Procedures Surgical History Date Name Laterality Status Provider Name and Address Organization Details Recorded Time 2023 injection of sacroiliac joint completed Sonia Andrea [facility] 4 10:41:48 2023 diabetic retinopathy screening completed Sonia Andrea [facility] 4 12:36:50 2022 Chronic Pain Assessment completed Kesha Strauss MA [facility] 3 10:46:00 2022 Colonoscopy completed Sonia Andrea [facility] 3 11:35:01 2022 esophagogastroduodenoscopy completed Issa Andrea [facility] 3 11:35:07 2020 Diabetic Foot Exam (Monofilament) completed Cora Lara PA-C [address] [facility] [address], [place], [address], [facility] 1 21:06:41 2020 polysomnography completed Deloris matias MA [facility] 1 15:44:34 2020 arthroplasty of left shoulder completed Deloris matias MA [facility] 1 15:35:54 2019 Orthopedic Surgery completed Deloris Genia-M attos, MA [facility] 1 15:36:33 2018 injection completed Martita Yasir [facility] 9 10:18:41 2018 Diabetic Foot Exam (Monofilament) completed Deloris matias MA [facility] 9 14:23:33 2018 release of trigger thumb completed Deloris matias MA [facility] 9 14:36:23 2017 Diabetic Foot Exam (Monofilament) completed Deloris matias MA [facility] 8 10:31:14 2017 Glaucoma surgery completed Jason Irizarry MD [address], [place], [address], [facility] 8 11:14:40 2016 Carpal tunnel surgery completed Deloris matias MA [facility] 8 11:06:27 2016 Nerve surgery completed Jason Irizarry MD [address], [place], [address], [facility] 8 11:46:25 2016 Mini-Cog Test completed Deloris matias MA [facility] 7 13:00:13 2016 Chronic Pain Assessment completed Deloris matias MA [facility] 7 12:59:42 2016 Most Recent Mammogram completed Virginia Honeycutt [facility] 9 10:15:24 2016 Other completed Renate Aguila [facility] 7 14:27:22 2016 decompression of lumbar spine completed Deloris matias MA [facility] 1 15:51:46 2013 Lap sleeve gastrectomy completed Maritzaantonio Leoslyndon HANEY [facility] 4 13:26:44 2012 Date of Last Colonoscopy completed Maritzaantonio Barragan [facility] 5 09:28:05 2008 Mammogram screening completed Deloris matias MA [facility] 8 11:10:32 Total hysterectomy completed Deloris matias MA [facility] 7 14:44:54 Back Surgery completed Deloris matias MA [facility] 8 11:10:06 Cholecystectomy completed Kathrin Martinez, [facility] [address], [place], [address], [facility] 4 10:19:07 Hernia Repair completed [facility] [address], [place], [address], [facility] 4 10:19:07 Imaging Results None recorded. Procedure Notes None recorded. Medical Equipment None Reported. Allergies Allergen ID Allergen Name Allergen Category Reaction Reaction Severity Criticality Documentation Date Start Date Code Code System Note Provider Name and Address Organization Details Recorded Time 38295 adhesive environme nt,medica tion rash Not available Not available 03/14/2016 [facility] 7 14:43:07 6387 Cleocin medicatio n hives itching Not available Not available Not available 08/30/20132013 2 RxNorm [facility] 7 14:42:54 6388 codeine medicatio n Not available Not available Not available 08/30/20132012 2670 RxNorm NAUSE A Not Available [facility] 4 19:50:25 6389 Decadron medicatio n hives itching Not available Not available Not available 08/30/20132013 78815 2 RxNorm MEDINA Bowers [facility] 7 14:42:50 Medications Name Sig Start Date [...] 150 mg tablet,12 hr sustained -release Take 2 tablets every day by oral route. active Not [...] completed RECORDED 11/08/19 08 4:16PM BY JORGE Rai, ISIDORO, ANNOTATI ON/CHARLEE DUM; Not Available Not Available [...] 08 9:34AM BY OPHELIA GARCIA MA, JUDYATI ON/ADDEN DUM; Not Available Not Available [...] Not Available prednison e 5 mg tablet 2 tabs daily active Not Available Not Available No t Available travopros t 0.004 % eye drops [...] 10:15AM BY TARYN SMITH I, JUDYATI ON/ADDEN DUM;DR. RAMACHANDRAN Not Available Not Available [...] every day by oral route at bedtime. 08/15 completed Not Available Not Available Not Available [...] TAKE 1 TABLET BY MOUTH EVERY DAY 12/01 completed Not Available Not Available Not Available Advair Diskus 250 mcg-50 mcg/dose powder [...] tablet every day by oral route for 90 days. 2024 active Not Available Not Available Not Avai lable amoxicill in 400 mg/5 mL oral suspensio [...] 12 9:35AM BY JASON IRIZARRY MD, MIGDALIA ON/ADD DUM; Not Available Not Available [...] Available topiramat e 100 mg tablet DAILY 12/05 /2011 completed RECORDED 01/21/20 11 1:31PM BY TAWANDA [...] 1 tablet every day by oral route. 08/15 completed Not Available Not Available Not Available docusate [...] day by oral route for 7 days. 08/15 completed Not Available Not Available Not Available tobramyci [...] DREW ON/ADDEN DUM;THIS ORDER DISCONTI NUED PER [facility]. Not Available Not Available Not Available albuterol (refill) 90 mcg/actua tion aerosol inhaler EVERY FOUR HOURS, NEEDED 09/15 completed RECORDED 09/29/19 09 10:31AM BY JORGE Rai NP, MEDICATI ON AUTO-BRENDON CTIVATIO N; Not Available Not Available Not Available bupropion HCl SR 200 mg tablet,12 hr sustained -release 2 PO QD 08/15 completed Not Available Not Available Not Available Vitamin D3 25 mcg (1,000 unit) capsule Take 1 capsule every day by oral route. 10/11 completed Not Available Not Available Not Available Humira 40 mg/0.8 mL subcutane ous syringe kit QWEEK 08/12 completed RECORDED 08/13/19 11 2:59PM BY RENATE AGUILA, ANNOTATI ON/CHARLEE LUJAN; Not Available Not Available Not Available cyclobenz aprine 5 mg tablet Take 1 tablet every day by oral route as needed for 90 days. 2024 active Not Available Not Available Not Avai lable Restasis 0.05 % eye drops in a [...] VISIT; Not Available Not Available Not Available folic acid active Not Available Not Available Not Available Iron [...] Not Available Not Available No t Available methotrex ate 2.5 mg tablet Take 1 mg every week by oral route. active Not Available Not Available No t Available Multi Vitamin active Not Available Not Available Not Available cyanocoba babatunde (vit B-12) 2,000 mcg tablet Take 1 tablet every day by oral route. 01/15 completed Not Available Not Available Not Available Fluvirin 6835-7956 45 mcg (15 mcg x 3)/0.5 mL [...] by subcutan eous route for 28 days. 04/14 completed Not Available Not Available Not [...] Available Not Available Vitals Date Recorded Systolic And Diastolic Provider Name and Address Organization Details Last Updated DateTime 02/22/2024 126/72 mm[Hg] Cora Lara PA-C [address], [address], [facility] 02/22/2024 11:13:25 Date Recorded Body height Heart rate Oxygen saturation Oxygen saturation in Arterial blood by Pulse oximetry Body temperature Body mass index (BMI) Body weight Systolic And Diastolic Provider Name and Address Organization Details Last Updated DateTime 5 161.29 cm 102 /min 100 % 100 % 97.2 [degF] 41.1 kg/m2 620830. 8 g 148/89 mm[Hg] Kylah Dean [facility] 5 10:19:00 Date Recorded Body height Body mass index (BMI) Body weight Heart rate Oxygen saturation Oxygen saturation in Arterial blood by Pulse oximetry Body temperature Systolic And Diastolic Provider Name and Address Organization Details Last Updated DateTime 5 161.29 cm 41.3 kg/m2 472695. 39 g 104 /min 97 % 97 % 97.6 [degF] 128/83 mm[Hg] [facility] 5 10:36:59 Date Recorded Body height Body mass index (BMI) Body weight Heart rate Oxygen saturation Oxygen saturation in Arterial blood by Pulse oximetry Body temperature Systolic And Diastolic Provider Name and Address Organization Details Last Updated DateTime 5 161.29 cm 39.3 kg/m2 303431. 08 g 102 /min 96 % 96 % 97.8 [degF] 122/74 mm[Hg] Anaya Omer LPN [facility] 5 13:11:20 Date Recorded Systolic And Diastolic Provider Name and Address Organization Details Last Updated DateTime 11/23/2023 126/76 mm[Hg] Cora Lara PA-C [address] [facility] [address], [place], [address], [facility] 11/23/2023 11:18:46 Date Recorded Body height Body mass index (BMI) Body weight Heart rate Oxygen saturation Oxygen saturation in Arterial blood by Pulse oximetry Body temperature Systolic And Diastolic Provider Name and Address Organization Details Last Updated DateTime 4 161.29 cm 41.1 kg/m2 744871. 8 g 105 /min 99 % 99 % 97.3 [degF] 145/91 mm[Hg] Kylah Dean MA [facility] 4 10:18:43 Date Recorded Body height Body mass index (BMI) Body weight Heart rate Oxygen saturation Oxygen saturation in Arterial blood by Pulse oximetry Body temperature Systolic And Diastolic Provider Name and Address Organization Details Last Updated DateTime 5 161.29 cm 38 kg/m2 00534.1 4 g 98 /min 98 % 98 % 97.9 [degF] 104/71 mm[Hg] Bob monsalve MA [facility] 5 10:23:03 Social History Question Answer Notes LastModified by Organizat ion Details LastModified Time Tobacco Smoking Status Former Smoker MEDINA Etienne, [facility] 10/31/2013 09:58:43 Do You Have An Advance Directive? Yes HCP Information not available 01/16/2020 Is Blood Transfusion [...] Or With Others? Alone And 1 Cat [facility] Information not available 04/14/2024 Do You Take [...] Of Your Most Recent Tobacco Screening? 04/14/2024 [employer] Information not available 04/14/2024 How Many Children Do You Have? 0 Information not available 05/08/2014 What Is Your Current Pack Years? 20-29packyear s K[employer] Information not available 04/14/2024 Seat Belts Used [...] not available 08/25/2014 Are you able to walk independently without assistance or assistive devices? YESASSIST walker [facility] Information not available 04/14/2024 Are you able to care for yourself independently? 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[employer] Information not available 08/25/2014 Do you or [...] Not available 07/30/2016 12:56:18 Paternal Uncle Malignant neoplasm of colon [email or web address] Not available 10:58:18 Sister [...] and Address Organization Details Recorded Time Influenza, high-dose, trivalent, PF 5 completed [facility] 12/01/2024 10:45:22 Influenza, split virus, trivalent, PF 5 completed Not Available [facility] 03/06/2023 19:50:27 Pneumococcal conjugate PCV 13 5 completed Not Available [facility] 03/06/2023 19:50:27 Tdap 5 completed Not Available [facility] 03/06/2023 19:50:27 Influenza, split virus, trivalent, preservative 6 completed Not Available [facility] 03/06/2023 19:50:27 COVID-19, mRNA, LNP-S, PF, 30 mcg/0.3 mL dose 1 completed Not Available [facility] 03/06/[facility]23 19:50:27 COVID-19, mRNA, LNP-S, PF, 30 mcg/0.3 mL dose 1 completed Not Available [facility] 03/06/2023 19:50:27 COVID-19, mRNA, LNP-S, PF, 30 mcg/0.3 mL dose 1 completed Not Available [facility] 03/06/2023 19:50:27 Influenza, split virus, quadrivalent, PF 0 completed Not Available [facility] 03/06/2023 19:50:27 Influenza, split virus, trivalent, preservative 1 completed Not Available [facility] 03/06/2023 19:50:27 zoster recombinant 2 completed Not Available [facility] 03/06/2023 19:50:27 COVID-19, mRNA, LNP-S, PF, 30 mcg/0.3 mL dose, ciarra-sucrose 2 completed Not Available [facility] 03/06/2023 19:50:27 zoster recombinant 1 completed Not Available [facility] 03/06/2023 19:50:27 Influenza, split virus, quadrivalent, PF 9 completed Not Available [facility] 03/06/2023 19:50:27 Influenza, split virus, quadrivalent, PF 7 completed Not Available [facility] 03/06/2023 19:50:27 Influenza, split virus, quadrivalent, PF 8 completed Not Available [facility] 03/06/2023 19:50:27 Influenza, MDCK, quadrivalent, PF 2 completed Not Available [facility] 03/06/2023 19:50:27 COVID-19, mRNA, LNP-S, PF, ciarra-sucrose, 30 mcg/0.3 mL 4 completed [place] Eason, [facility] 04/14/2024 10:31:13 Influenza, high-dose, trivalent, PF 4 completed MEDINA Eason [facility] 04/14/2024 10:31:13 Influenza, split virus, trivalent, PF 4 completed Not Available [facility] 03/05/2019 02:21:58 pneumococcal polysaccharide PPV23 6 completed Not Available [facility] 03/06/2023 19:50:27 pneumococcal polysaccharide PPV23 9 completed Not Available [facility] 03/06/2023 19:50:27 Influenza, split virus, trivalent, preservative 6 completed Not Available [facility] 03/06/2023 19:50:27 Td (adult), 2 Lf tetanus toxoid, preservative free, adsorbed 7 completed Not Available [facility] 03/06/2023 19:50:27 Influenza, split virus, trivalent, preservative 7 completed Not Available [facility] 03/06/2023 19:50:27 Influenza, split virus, trivalent, preservative 8 completed Not Available [facility] 03/06/2023 19:50:27 Influenza, split virus, trivalent, preservative 9 completed Not Available [facility] 03/06/2023 19:50:27 Influenza, split virus, trivalent, preservative 0 completed Not Available [facility] 03/06/2023 19:50:27 Influenza, split virus, trivalent, preservative 2 completed Not Available [facility] 03/06/2023 19:50:27 Tdap 3 completed Not Available [facility] 03/06/2023 19:50:27 influenza, seasonal, intradermal, preservative free 3 completed Not Available [facility] 03/06/2023 19:50:27 Influenza, split virus, quadrivalent, PF 3 completed Meme miranda [facility] 12/08/2022 14:44:09 Past Encounters Encounter ID Performer Location Encounter Start Date Encounter Closed Date Diagnosis/Indication Diagnosis SNOMED-CT Code Diagnosis ICD10 Code Diagnosis IMO Codes Diagnosis Note [id number] [facility] [address] [facility] [place] [address] 03/13/2006 00:00:00 [id number] autoEComm erce [address] [facility] [place] [address] 03/03/2006 00:00:00 [id number] autoEComm erce [address] [facility] [place] [address] 01/30/2006 00:00:00 [id number] autoEComm erce [address] [facility] [place] [address] 12/10/2005 00:00:00 [id number] autoEComm erce [address] [facility] [place] [address] 05/12/2006 00:00:00 [id number] [address] [address] [place] [address] 07/07/2006 00:00:00 [id number] autoEComm erce [address] [facility] [place] [address] 08/07/2006 00:00:00 [id number] autoEComm erce [address] [facility] [address] [place] [address] 10/09/2006 00:00:00 [id number] autoEComm erce [address] [facility] [address] [place] [address] 11/27/2006 00:00:00 [id number] autoEComm erce [address] [facility] [place] [address] 12/10/2006 00:00:00 [id number] autoEComm erce [address] [facility] [place] [address] 01/12/2007 00:00:00 [id number] autoEComm erce [address] [facility] [place] [address] 01/22/2007 00:00:00 [id number] autoEComm erce [address] [facility] [place] [address] 03/25/2007 00:00:00 [id number] autoEComm erce [address] [facility] [place] [address] 05/04/2007 00:00:00 [id number] autoEComm erce [address] [facility] [place] [address] 08/05/2007 00:00:00 [id number] autoEComm erce [address] [facility] [place] [address] 08/18/2007 00:00:00 [id number] autoEComm erce [address] [facility] [place] [address] 09/02/2007 00:00:00 [id number] autoEComm erce [address] [facility] [place] [address] 10/01/2007 00:00:00 [id number] autoEComm erce [address] [facility] [place] [address] 12/11/2007 00:00:00 [id number] autoEComm erce [address] [facility] [place] [address] 01/03/2008 00:00:00 [id number] autoEComm erce [address] [facility] [place] [address] 01/20/2008 00:00:00 [id number] autoEComm erce [address] [facility] [place] [address] 04/06/2008 00:00:00 [id number] autoEComm erce [address] [facility] [place] [address] 04/13/2008 00:00:00 [id number] autoEComm erce [address] [facility] [place] [address] 07/03/2008 00:00:00 [id number] autoEComm erce [address] [facility] [place] [address] 10/09/2008 00:00:00 [id number] autoEComm erce [address] [facility] [place] [address] 12/21/2008 00:00:00 [id number] autoEComm erce [address] [facility] [place] [address] 01/26/2009 00:00:00 [id number] autoEComm erce [address] [facility] [place] [address] 05/09/2009 00:00:00 [id number] autoEComm erce [address] [facility] [place] [address] 08/10/2009 00:00:00 [id number] autoEComm erce [address] [facility] [place] [address] 09/14/2009 00:00:00 [id number] autoEComm erce [address] [facility] [address] [place] [address] 11/12/2009 00:00:00 [id number] auto[address]Comm erce [address] [place] [address] 02/18/2010 00:00:00 [id number] autoEComm erce [address] [facility] [address] [place] [address] 07/10/2010 00:00:00 [id number] autoEComm erce [address] [facility] [place] [address] 10/02/2010 00:00:00 [id number] autoEComm erce [address] [facility] [place] [address] 01/20/2011 00:00:00 [id number] autoEComm erce [address] [facility] [place] [address] 05/26/2011 00:00:00 [id number] autoEComm erce [address] [facility] [place] [address] 09/04/2011 00:00:00 [id number] autoEComm erce [address] [facility] [place] [address] 10/14/2011 00:00:00 [id number] autoEComm erce [address] [facility] [place] [address] 12/16/2011 00:00:00 [id number] autoEComm erce [address] [facility] [place] [address] 01/19/2012 00:00:00 [id number] autoEComm erce [address] [facility] [place] [address] 03/17/2012 00:00:00 [id number] autoEComm erce [address] [facility] [place] [address] 05/18/2012 00:00:00 [id number] autoEComm erce [address] [facility] [place] [address] 06/24/2012 00:00:00 [id number] autoEComm erce [address] [place] [address] 08/17/2012 00:00:00 [id number] auto[address]Comm erce [address] [place], [place] [address] 09/20/2012 00:00:00 [id number] autoEComm erce [address] [place] [address] 10/22/2012 00:00:00 [id number] autoEComm erce [address] [facility] [address] [place] [address] 12/11/2012 00:00:00 [id number] autoEComm erce [address] [facility] [address] [place] [address] 12/31/2012 00:00:00 [id number] autoEComm erce [address] [facility] [place] [address] 05/11/2013 00:00:00 [id number] autoEComm erce [address] [facility] [place] [address] 08/12/2013 00:00:00 [id number] RACHELL Chester Main Office [address] [facility] [address] [place] [address] 10/31/2013 09:30:33 10/31/2013 10:30:03 Pre-surgery evaluation 749515774 Needs infl uenza immunization 561082932 Morbid obesity 354190864 C ontinue bariatric diet and classes Type 2 margareth betes mellitus without complication 081770800 Continue current meds Essential hypertension 19233810 Continue current meds Hyperlipidemia 66856843 Co ntinue current meds Gastroesop hageal reflux disease 583845386 Continue current meds [id number] Jason Irizarry MD Main Office [address] [place], [place] [address] 11/09/2013 10:55:48 11/09/2013 11:43:49 Type 2 diabetes mellitus without complication 296335247 Body mass index 40+ - severely obese 062241626 [id number] Issa MaldonadoRACHELL damian Main Office [address] [facility] [address] [place] [address] 01/20/2014 13:04:43 01/20/2014 13:55:09 Type 2 diabetes mellitus without complication 082047286 doing well post gastric sleeve. she has f/u in 4 months here Body mass index 40+ - severely obese 271595158 she just had gastric surgery to address this [id number] Austin coronado MD Main Office [address] [address] [place] [address] 02/28/2014 13:59:05 02/28/2014 14:52:32 Acute sinusitis 49021315 [id number] Jason Irizarry MD Main Office [address] [address] [place] [address] 05/08/2014 09:23:47 05/08/2014 10:33:20 Adult health examination 568544090 Essential hypertension 30046061 Hyperlipidemia 39544631 Obstructiv e sleep apnea syndrome 54839651 Type 2 margareth betes mellitus without complication 978019449 Body mass index 30+ - obesity 442665380 s/p bariatric surgery Low back pain 657698055 Major depr essive disorder 547442806 Followed by Dr. Geno Cardona [id number] Jason Irizarry MD Main Office [address] [address] [place] [address] 06/12/2014 14:01:32 06/12/2014 15:50:43 Low back pain 672337263 Has had 6 back surgeries. Last was [address] Luque. [id number] Jason Irizarry MD Main Office [address] [address] [place] [address] 08/25/2014 10:09:07 08/25/2014 11:20:31 Type 2 diabetes mellitus without complication 732792584 Essential hypertension 91290289 Low back pain 283773617 Oliveira s had 6 back surgeries. Last was [address] Luque. Obstructiv e sleep apnea syndrome 53088260 [id number] Jason Irizarry MD Main Office [address] [address] [place] [address] 02/27/2015 10:20:53 02/27/2015 11:13:10 Type 2 diabetes mellitus without complication 571500198 E11.9 Essential hypertension 12758551 I10 Major depr essive disorder 408769539 F32.[address] Geno Cardona Screening for malignant neoplasm of breast 379640222 Z12.39 Body mass index 30+ - obesity 229791847 Z68.31 E66.9 s/p bariatric surgery. Continued follow up with Dr. Terrell. Blood in urine 27775985 R31.9 Low back pain 039126015 M54.5 Has had 6 back surgeries. Last was [address] Luque. [id number] Cora Lara PA-C Main Office [address] [facility] [address] [place] [address] 06/28/2015 13:53:13 06/28/2015 14:50:27 Diarrhea 32756368 R19.7 Right lowe r quadrant pain 800401259 R10.31 mild-mod pain c palp, no c/o pain at baseline -- may need GI eval if sxs worse [id number] Jason Irizarry MD Main Office [address] [facility] [address] [place] [address] 08/29/2015 09:34:29 08/29/2015 10:56:41 Adult health examination 716738553 Z00.00 Type 2 margareth betes mellitus without complication 225794866 E11.9 Essential hypertension 33505205 I10 Major depr essive disorder 785837433 F32.9 Screening for malignant neoplasm of breast 784086978 Z12.39 Low back pain 469165858 M54.5 Has had 6 back surgeries. Last was [address] Luque. Pain of [facility] 38798915 M25.512 Knee pain 19737308 M25.5 61 [id number] Jason Irizarry MD Main Office [address] [facility] [address] [place] [address] 01/29/2016 10:36:51 01/29/2016 11:20:06 Lumbar radiculopathy 021054136 M54.16 Left L3 distributi on. New symptoms in patient with longstandi ng chronic LBP [id number] Jason Irizarry MD Main Office [address] [address] [place] [address] 03/05/2016 08:38:37 03/05/2016 09:56:35 Type 2 diabetes mellitus without complication 206829469 E11.9 Essential hypertension 23465460 I10 Low back pain 784592537 M54.5 Has had 6 back surgeries. Last was [address] Luque. [id number] Jason Irizarry MD Main Office [address] [facility] [address] [place] [address] 03/14/2016 14:11:21 03/14/2016 15:21:39 Pre-surgery evaluation 047345186 Z01.818 Leukocytes in urine 2757 94685 R82.71 Type 2 margareth betes mellitus without complication 311659134 E11.9 Essential hypertension 88512469 I10 Obstructiv e sleep apnea syndrome 45119592 G47.33 [id number] Cora Lara PA-C Main Office [address] [facility] [address] [place] [address] 05/05/2016 12:40:09 05/05/2016 14:03:25 Transition of care 9648823722 105 Z75.8 will attempt to get labs from snf for completene ss / comparison History of excision of lamina of lumbar vertebra for decompression of spinal cord 589262335 Z98.890 and fusion 04/04/[address] Luque ----- s/p surgery x 2 and then fluid aspiration - cont. f/u c him Essential hypertension 97186489 I10 stable off meds s/p gastric sleeve Type 2 margareth betes mellitus without complication 814603573 E11.9 fsbs stable lately Obstructiv e sleep apnea syndrome 73221244 G47.33 Leukocytosis 215883855 D 72.829 pt states had elevated wbc ct and mild post op anemia - will check cbc [id number] Jason Irizarry MD Main Office [address] [facility] [address] [place] [address] 07/02/2016 13:46:40 07/02/2016 14:50:16 Insomnia 004307749 G47.00 Fatigue 03493279 R53.83 Loss of appetite 7526751 6 R63.0 Fever 366853005 R50.9 [id number] Jason Irizarry MD Main Office [address] [facility] [address] [place] [address] 07/30/2016 12:42:31 07/30/2016 13:39:57 Chronic pain syndrome 375322899 G89.4 Dysuria 29882940 R30.0 Type 2 margareth betes mellitus 88876894 E11.9 Screening for malignant neoplasm of breast 342768308 Z12.39 Insomnia 986644158 G47.0 0 [id number] Mattie Lara PA-C Main Office [address] [facility] [address] [place] [address] 08/29/2016 12:17:56 08/29/2016 13:50:56 Microcytic anemia 886768373 D50.9 Check stool for occult blood at . Test iron and retest CBC. Pt. will return for lab f/u and will determine if GI referral is needed. Essential hypertension 96641533 I10 Lower sodium and caffeine. Test BP in 1 week. [id number] Jason Irizarry MD Main Office [address] [address] [place] [address] 08/30/2016 10:26:06 08/30/2016 10:27:27 Screening for malignant neoplasm of colon 782559141 Z12.11 [id number] Mattie Lara PA-C Main Office [address] [facility] [address] [place] [address] 09/05/2016 09:54:11 09/05/2016 10:35:40 Anemia due to unknown mechanism 84311297 D64.9 Pt has been taking her iron 325 mg supplement s once a day. Will try BID and repeat CBC and iron in 4-6 weeks. Essential hypertension 33606991 I10 Pt's blood pressure is still elevated on today's visit. Pt will be started on an ACEi. Pt was educated on continuing to limit her caffeine and salt intake as well as to exercise to lower her bp. Return with BP readings from home in 4 weeks. [id number] Mattie Lara PA-C Main Office [address] [facility] [address] [place] [address] 10/01/2016 10:23:51 10/01/2016 11:33:04 Anemia due to unknown mechanism 21705142 D64.9 Pt has been taking iron 325 [...] in 10 yrs from previous Essential hypertension 76725499 I10 BP is stable on lisinopril 10mg, [...] should be re-checked Needs infl uenza immunization 019467782 Z23 - Pt will receive flu shot today Body mass index 30+ - obesity 017420783 Z68.30 - Pt will continue to loss weight through portion control- Pt is unable to exercise at this time due to extensive back surgery which she is still covering from [id number] Jason Irizarry MD Main Office [address] [facility] [address] [place] [address] 11/03/2016 12:37:50 11/03/2016 14:56:18 Adult health examination 190088759 Z00.00 Type 2 margareth betes mellitus without complication 100406116 E11.9 Body mass index 30+ - obesity 196832133 Z68.31 E66.9 s/p bariatric surgery. Continued follow up with Dr. Terrell. Spinal coy nosis of lumbar region 11890666 M48.06 Major depr essive disorder 507015359 F32.9 Still with residual symptoms. followed by psychiatry Chronic pain syndrome 37 9630522 G89.4 stable off of opioids. Essential hypertension 42622399 I10 STable on present medication s. Obstructiv e sleep apnea syndrome 05911060 G47.33 Stable off of treatment after weight loss (bariatric surgery) [id number] Jason Irizarry MD Main Office [address] [place] [address] 05/01/2017 10:25:14 05/01/2017 12:07:41 Diabetic peripheral neuropathy 773010162 E11.40 Screening for malignant neoplasm of breast 644304072 Z12.31 last done 2008; refuses Hepatitis C screening 41 6769064 Z11.59 Essential hypertension 01613652 I10 STable on present medication s. Spinal coy nosis of lumbar region 98286542 M48.061 Obstructiv e sleep apnea syndrome 57296540 G47.33 Stable off of treatment after weight loss (bariatric surgery) Polyneuropathy 87970764 A69.22 Obesity 888523750 E66.9 Body mass index 30+ - obesity 504451288 Z68.30 s/p bariatric surgery. Continued follow up with Dr. Terrell. [id number] Jason Irizarry MD Main Office [address] [address] 08/22/2017 10:26:28 08/22/2017 11:25:44 Contusion of lower limb 00338451 S80.12XA At [facility] ed risk for falls 548838155 Z91.81 Fall 5945199 W18.2XXA [id number] Jason Irizarry MD Main Office [address] [address] 11/06/2017 10:02:23 11/06/2017 11:45:45 Diabetic peripheral neuropathy 395501691 E11.40 Adult heal th examination 042953520 Z00.00 Needs infl uenza immunization 920512514 Z23 Hyperlipidemia 03052862 E78.5 Body mass index 30+ - obesity 176718841 E66.01 Z68.35 s/p bariatric surgery. Continued follow up with Dr. eTrrell. Muscle pain 90971764 M79 .1 Mild persi stent allergic asthma 0117730417 7607386 J45.30 [id number] Jason Irizarry MD Main Office [address] [address] 05/24/2018 14:09:52 05/24/2018 15:24:14 Type 2 diabetes mellitus without complication 137850305 E11.9 Diabetic p eripheral neuropathy 105081569 E11.40 Body mass index 30+ - obesity 263972845 E66.01 s/p bariatric surgery. Continued follow up with Dr. Terrell. [id number] Thaddeus Jackson MD Main Office [address] [address] 11/17/2018 10:06:59 11/17/2018 11:32:24 Adult health examination 839715799 Z00.00 Pt is in good general health. Social and family history reviewed. Immunizati ons reviewed, administer ed the flu shot. She is upt to date on dental and eye providers, mammogram --pt refuses, aware we could be missing early or nonpalpabl e breast cancer. Pt states colon up to date - will get report , Reviewed diet and exercise. Needs infl uenza immunization 856325009 Z23 Body mass index 30+ - obesity 652489816 Z68.36 pt tries to eat healthy. She has had gastric bypass in the past. Hard to exercise due to chronic disabling back pain. Major depr essive disorder 443332316 F32.[address] and is on TCA, currently stable Essential hypertension 87857666 I10 on lisinopril , BP at goal Hyperglycemia 39415590 R 73.9 Myalgia/my ositis - multiple 081540340 M79.10 followp in 6 weeks Paresthesi a of upper limb 11099846 R20.2 Obesity 981012828 E66.9 [id number] Thaddeus Jackson MD Main Office [address] [facility] [address] [place] [address] 12/30/2018 13:01:11 12/30/2018 13:44:25 Pre-surgery evaluation 571353128 Z01.818 Patient is at low risk for [...] pending Pain of le ft shoulder joint 6012773165 2495994 M25.512 surgery due to severely diminished ROM and chronic pain [id number] Jason Irizarry MD Main Office [address] [facility] [address] [place] [address] 01/06/2019 09:45:38 01/20/2019 08:54:26 [id number] Jason Irizarry MD Main Office [address] [facility] [address] [place] [address] 01/16/2020 10:13:56 01/16/2020 11:50:06 Adult health examination 972722172 Z00.00 Essential hypertension 04324686 I10 STable on present medication s. Hyperlipidemia 97766592 E78.5 Fatigue 12228622 R53.83 Diabetic p eripheral neuropathy 282550851 E11.40 Spinal coy nosis of lumbar region 80721559 M48.061 Obstructiv e sleep apnea syndrome 48972924 G47.33 Stable off of treatment after weight loss (bariatric surgery) Body mass index 30+ - obesity 812070970 E66.01 Z68.35 s/p bariatric surgery. Continued follow up with Dr. Terrell. [id number] Jason Irizarry MD Main Office [address] [facility] [address] [place] [address] 03/22/2020 08:51:20 04/10/2020 14:58:58 [id number] Cora Lara PA-C Main Office [address] [address] [place] [address] 10/11/2020 10:08:45 10/11/2020 11:24:52 Pre-surgery evaluation 751552201 Z01.818 Cataract 760386265 H25.0 13 Essential hypertension 11617638 I10 stable bp, cont med as dir, check bmp below Hyperlipidemia 49215365 E78.5 Diabetic p eripheral neuropathy 590308883 E11.40 diet / ex control, pending pe c pcp in a few months will check A1c at pt request d/t wt gain cont f/u c eye md will get podiatry eval - see below Spinal coy nosis of lumbar region 28951130 M48.061 stable, s/p multiple back surgeries Obstructiv e sleep apnea syndrome 42225662 G47.33 cont cpap as dir, cont f/u c sleep med Body mass index 40+ - severely obese 541720829 E66.01 Z68.41 Severe dry skin 29243468 2 L85.3 on feet - no sig help c otc moist lotion - trial c amlactin - encouraged pt to f/u c podiatry - see above [id number] Thaddeus Jackson MD Main Office [address] [facility] [address] [facility] [place] [address] 01/16/2021 09:44:41 01/16/2021 11:13:19 Adult health examination 413528645 Z00.00 next colon 2022, defers pap/mammo Essential hypertension 14076507 I10 stable bp, cont med as dir, check cmp Hyperlipidemia 98710114 E78.5 Diabetic p eripheral neuropathy 387513458 E11.40 diet / ex control p bariatric surgery cont f/u c eye cont f/u c podiatry - pending Fara - your A1c is slowly climbing, but fortunatel y not elevated too high to begin medication for this at this time. Rec. weight loss thru low carb diet and increased aerobic exercise. Spinal coy nosis of lumbar region 86661358 M48.061 stable, s/p multiple back surgeries Obstructiv e sleep apnea syndrome 84286050 G47.33 cont bipap as dir, cont f/u c sleep med Body mass index 40+ - severely obese 888515641 E66.01 Z68.41 Varicella vaccination 68 733462 Z23 Screening for malignant neoplasm of breast 761068192 Z12.39 pt declines mammogram Depressive disorder 8059 8977 F32.0 pending start duloxetine thru psychiatri st - cont see q 3 months, no see therapist Severe dry skin 68658697 2 L85.3 sig better c amlactin - encouraged pt to f/u c podiatry - see above [id number] Thaddeus Jackson MD Main Office [address] [facility] [address] [place] [address] 07/04/2021 09:43:36 07/04/2021 10:58:22 Pre-surgery evaluation 447617851 Z01.818 Pain of ri ght shoulder joint 0350004208 2119524 M25.511 Essential hypertension 75514428 I10 bp on low side of normal ---- +/- orthostati c - rec cut lis 10mg in half === 5mg qd Depressive disorder 3548 9007 F32.0 stable, cont duloxetine thru psychiatri st - cont see q 3 months, no see therapist Diabetic p eripheral neuropathy 416460326 E11.40 diet / ex control p bariatric surgery cont f/u c eye cont f/u c podiatry Fara - your A1c is slowly climbing, but fortunatel y not elevated too high to begin medication for this at this time. Rec. weight loss thru low carb diet and increased aerobic exercise. . - last A1c 6.2 on 10.11.20 - will get recheck Obstructiv e sleep apnea syndrome 45102190 G47.33 cont bipap as dir, cont f/u c sleep med 5. - consider bringing bipap to above procedure Spinal coy nosis of lumbar region 37008381 M48.061 stable, s/p multiple back surgeries - pt has tolerated anesthesia well in the past Body mass index 40+ - severely obese 499642238 E66.01 Z68.41 Psoriatic arthritis 1563 60122 L40.50 cont med as dir, cont f/u c rheum & derm [id number] Thaddeus Jackson MD Main Office [address] [facility] [address] [place] [address] 10/09/2021 08:17:22 10/09/2021 09:37:27 Essential hypertension 56878245 I10 bp & cr stable, cont med as dir Hyperlipidemia 55340756 E78.5 tolerating statin, recheck lipids Diabetic p eripheral neuropathy 363989120 E11.40 diet / ex control p bariatric surgery cont f/u c eye md cont f/u c podiatry Fara - your A1c is slowly climbing, but fortunatel y not elevated too high to begin medication for this at this time. Rec. weight loss thru low carb diet and increased aerobic exercise. - last A1c 6.2 - will get recheck Pain of ri ght shoulder joint 3527010976 0717113 M25.511 s/p sx, cont sling/PT as dir, cont f/u c ortho - next month [id number] Eric Castillo MD Telehealt h [address] [facility] [address] [place] [address] 02/19/2022 12:49:57 02/19/2022 14:04:56 COVID-19 481572339 U07.1 hydration, rest, if feeling better quarantine x 5 days then mask for 5 days. If not better after 5 days quarantine for full 10 days. Tylenol/ ibuprofen as needed, OTC cough med as needed. Call/ return for worsening sx or concerns.S top atorvastat in while on paxlovid. Asthma 226014898 J45.90 9 will provide refill inhaler to use as needed Essential hypertension 07878101 I10 Continue current meds [id number] Eric Castillo MD Main Office [address] [facility] [address] [place] [address] 02/25/2022 08:28:51 02/25/2022 09:10:09 COVID-19 619632355 U07.1 s/p covid diagnosed on 02/18/22. Pneumonitis 136015290 J1 8.9 will tx for possible secondary infection as she is high risk. Zpak as directed, prednisone burst as directed. hydration, rest, tea with honey, continue albuterol inhaler use.- ED precaution s: Diff breathing, fever, unable to tolerate PO etc. Diabetic p eripheral neuropathy 520132032 E11.40 Essential hypertension 22552845 I10 Continue current meds Obstructiv e sleep apnea of adult 1281490178 103 G47.33 [id number] Thaddeus Jackson MD Main Office [address] [facility] [address] [place] [address] 03/13/2022 13:02:22 03/13/2022 14:28:25 Adult health examination 256134282 Z00.00 pt defers pap Asthma 275010600 J45.90 9 stable Chronic pain syndrome 37 5612422 G89.4 see below Diabetic p eripheral neuropathy 933651895 E11.40 diet / ex control p bariatric [...] encourage if a1c cont to climb Hyperlipidemia 94497803 E78.5 lipids nl, cont statin as dir Obstructiv e sleep apnea syndrome 82099359 G47.33 cont bipap as dir, cont f/u c sleep med Psoriatic arthritis 1563 16191 L40.50 cont med as dir, cont f/u c rheum - f/u c derm prn Vitamin D deficiency 347 97193 E55.9 Spinal coy nosis of lumbar region 97070671 M48.061 stable, s/p multiple back surgeries - pt has tolerated anesthesia well in the past Has had 6 back surgeries. Last was [address] Luque. cont hep rec tyl 500mg 1-2 tabs up to 3x/day, reserve naproxen for prn Body mass index 40+ - severely obese 441113775 E66.01 Z68.41 Screening for malignant neoplasm of colon 677282567 Z12.11 Screening for malignant neoplasm of breast 016071236 Z12.39 Iron defic iency anemia 96256919 D50.9 Hypertensi ve renal disease 34164044 I12.9 bp stable Chronic ki dney disease stage 2 241613729 N18.2 Depressive disorder 3548 9007 F32.0 stable, cont duloxetine thru psychiatri st - cont see q 3 months, no see therapist Vitamin B1 2 deficiency (non anemic) 86908748 E53.8 [id number] Thaddeus Jackson MD Main Office [address] [facility] [address] [place] [address] 08/06/2022 13:00:34 08/06/2022 14:24:14 Diabetic peripheral neuropathy 255641944 E11.40 diet / ex control p bariatric [...] stable at 6.3 Gastroesop hageal reflux disease 226950608 K21.9 stable, cont ppi as dir, seen by gi - pending egd/colon in 10.23 Chronic ki dney disease stage 2 846260610 N18.2 Hypertensi ve renal disease 93296949 I12.9 bp stable, cont med as dir Psoriatic arthritis 1563 40924 L40.50 stable - cont med as dir, cont f/u c rheum - f/u c derm prn Iron defic iency anemia 06207488 D50.9 mild, persistent d/t donates blood (platelets ) q o wkcont iron c vit c daily Spinal coy nosis of lumbar region 43239325 M48.061 stable, s/p multiple back surgeries - pt has tolerated anesthesia well in the past Has had 6 back surgeries. Last was [address] Luque. cont hep rec tyl 500mg 1-2 tabs up to 3x/day, reserve naproxen for prn 6.23 - ambulating better c [facility] [id number] Thaddeus Jackson MD Main Office [address] [place] [address] 12/08/2022 09:53:06 12/08/2022 11:34:13 Needs influenza immunization 509731084 Z23 Spinal coy nosis of lumbar region 80873353 M48.061 stable, s/p multiple back surgeries - [...] o/n Chronic ki dney disease stage 2 868278257 N18.2 Hypertensi ve renal disease 83438248 I12.9 bp elevated but likely d/t pain, cont med as dir, recheck next month Gastroesop hageal reflux disease 939602313 K21.9 stable, cont ppi as dir, seen by gi - pending egd/colon in 12.08 10. - had egd = stable, but colon was full of stool - needs repeat next year p double split prep - see below Constipation 88164408 K5 9.00 likely d/t iron qd - but in light of above, rec miralax qd (has been taking ~ wkly lately) == 1/2-1 scoop qd Iron defic iency anemia 20358018 D50.9 mild, persistent d/t donates blood (platelets ) q o wkcont iron c vit c daily10.23 - see above, encouraged pt to call gi to get f/u colonoscop y in a few months as opposed to 1 year == if recheck labs are normal then stop iron supp, and may need miralax qod instead Red left eye 9670983572 6737681 H57.89 s/p scratched cornea - cont drops as per eye md, next f/u next wk [id number] Thaddeus Jackson MD Main Office [address] [address] 01/12/2023 10:06:53 01/12/2023 12:36:20 Hypertensive renal disease 00344358 I12.9 bp elevated but likely d/t pain, cont med as dir, recheck next month 01/12/23: BP stable in office today Diabetic p eripheral neuropathy 176826827 E11.40 diet / ex control p bariatric [...] bid as cruz Chronic pain syndrome 37 0979058 G89.4 see below Psoriatic arthritis 1563 00141 L40.50 stable - cont humira as dir, cont f/u c rheum - f/u c derm prntreated w/ corticoste roid injections in right first MCP 11.23 - had labs for sjogrens - encouraged pt to f/u c rheum (unsure of results) Obstructiv e sleep apnea syndrome 68488024 G47.33 cont bipap as dir, cont f/u c sleep med Spinal coy nosis of lumbar region 77920847 M48.061 stable, s/p multiple back surgeries - [...] salonpas - but rec change to o/n 11 - [facility] turned pt away, pending neurology referral in [facility] l c increasing cylcobenza monalisa to 10mg since not sleeping well - 5mg am, 5mg afternoon, 10mg qhs Leukocytosis 086026049 D 72.829 pt states had elevated wbc ct and mild post op anemia - will check cbc Dry eyes 718583117 H04.1 23 cont meds, f/u c eye md? d/t underlying sjogrens - encouraged pt to f/u c rheum (see above) Depressive disorder 3548 9007 F32.0 stable, cont duloxetine & bupropion & amitriptyl ine thru psychiatri st - cont see q 3 months, no see therapist Chronic ki dney disease stage 2 882459834 N18.2 [id number] JEANMARIE KOWALSKI Main Office [address] [facility] [place], [place] [address] 02/20/2023 10:02:09 02/20/2023 10:23:15 Upper respiratory infection 08226186 J06.9 x5 days of a productive cough [...] take tylenol for any discomfort as directed [id number] Thaddeus Jackson MD Main Office [address] [place], [place] [address] 04/13/2023 09:40:46 04/13/2023 11:19:11 Adult health examination 287930421 Z00.00 pt defers pap & mammopt had colonoscop y 10. - but aborted d/t full of stool - rec recheck 1 yr, encouraged pt to call them sooner - printed colon report for pt Venereal d isease screening 787145501 Z11.3 Z72.89 F03.90 Mild memor y disturbance 728841180 R41.3 Required work up for referral to [facility].1. Imaging: Provider leave the desired imaging order, and delete the other (MRI or CT)2. Labs3. Perform 6CIT or MMSE mother c h/o dementia mid 60s Arthritis of first carpometacarpal joint of right hand 7546357108 581589 M13.841 pending see ATC in a few days for likely maurilio injxn - meanwhile, rec trial of thumb spica - printed for pt Hypertensi ve renal disease 11017812 I12.9 bp elevated but likely d/t pain, cont med as dir, recheck next month 01/12/23: BP stable in office today 2.24 - stable Diabetic p eripheral neuropathy 867739700 E11.40 diet / ex control p bariatric [...] check pending labs Iron defic iency anemia 89374057 D50.9 mild, persistent d/t donates blood (platelets [...] a few times/wk Bone density finding 385 756874 M85.89 Body mass index 40+ - severely obese 822363812 E66.01 Z68.41 Chronic ki dney disease stage 2 165398359 N18.2 Mild major depression, single episode 72520157 F32.0 stable, cont duloxetine & bupropion & amitriptyl ine thru psychiatri st - cont see q 3 months, no see therapist [id number] Thaddeus Jackson MD Main Office [address] [facility] [address] [place] [address] 05/11/2023 10:49:57 05/11/2023 12:07:58 Mild memory disturbance 812950674 R41.3 Required work up for referral to [facility].1. Imaging: Provider leave the desired imaging order, and delete the other (MRI or CT)2. Labs3. Perform 6CIT or MMSE mother c h/o dementia mid 60s 3.24 - pending see specialist - gave phone # and encouraged her to call Psoriatic arthritis 3037 95826 L40.50 stable - cont humira as dir, cont f/u c rheum - f/u c derm prntreated w/ corticoste roid injections in right first MCP 11.23 - had labs for sjogrens - encouraged pt to f/u c rheum (unsure of results) 3.24 - cont f/u c ATC - next is tomorrow, pending begin enbrel Spasm of back muscles 20 0778643 M62.830 pt has been on flexeril in past - requests add'l Spinal coy nosis of lumbar region 90081818 M48.061 stable, s/p multiple back surgeries - [...] turned pt away, pending neurology referral in [facility] l c increasing cyclobenza monalisa to 10mg since not sleeping well - 5mg am, 5mg afternoon, 10mg qhs 3.24 - printed neuro order to call him in [place] [id number] Thaddeus Jackson MD Main Office [address] [facility] [address] [place] [address] 07/09/2023 10:37:44 07/09/2023 12:19:17 Mild memory disturbance 349072637 R41.3 Required work up for referral to [...] wks for re-eval Diabetic p eripheral neuropathy 587980265 E11.40 diet / ex control p bariatric [...] - recheck labs (overdue) Psoriatic arthritis 1563 71789 L40.50 stable - cont humira as dir, [...] note 2.24 Spasm of back muscles 20 2615251 M62.830 pt has been on flexeril in past - requests add'l 5.24 - sleeps better on prn m relaxer Spinal cyo nosis of lumbar region 22212116 M48.061 stable, s/p multiple back surgeries - [...] turned pt away, pending neurology referral in [place] l c increasing cyclobenza monalisa to 10mg since not sleeping well - 5mg am, 5mg afternoon, 10mg qhs 3.24 - printed neuro order to call him in [place] 5.24 - advised by [place] neurosurge on to see local neurologis t = but no consult note to review - will attempt to getsophiatomasa stroud, will get pmr re-eval = looks like she last saw [facility] 2016 = will change to Dr Onela [id number] Thaddeus Jackson MD Main Office [address] [facility] [address] [facility] [place] [address] 08/17/2023 13:47:25 08/17/2023 15:13:42 Mild memory disturbance 741190799 R41.3 Required work up for referral to [...] cont as dir Diabetic p eripheral neuropathy 250411893 E11.40 diet / ex control p bariatric [...] mounjaro Spinal coy nosis of lumbar region 54171053 M48.061 stable, s/p multiple back surgeries - [...] turned pt away, pending neurology referral in [facility] l c increasing cyclobenza monalisa to 10mg since not sleeping well - 5mg am, 5mg afternoon, 10mg qhs 3.24 - printed neuro order to call him in [place] 07.09 - advised by [place] neurosurge on to see local neurologis t = but no consult note to review - will attempt to getludivina stroud, will get pmr re-eval = looks like she last saw [facility] 2016 = will change to Dr Oneal 7. - seen by pmr - had xray - next f/u 8.12 Hyperlipidemia 77641291 E78.5 lipids nl, cont statin as dir [id number] Thaddeus Jackson MD Telehealt h [address] [facility] [address] [place] [address] 11/10/2023 14:23:35 11/11/2023 10:02:02 Obstructive sleep apnea syndrome 10100764 G47.33 cont bipap as dir, cont f/u c sleep med Mild neuro cognitive disorder 489832390 G31.84 Required work up for referral to [...] - thank you Diabetic p eripheral neuropathy 587964725 E11.40 diet / ex control p bariatric [...] 9.28.24 Spinal coy nosis of lumbar region 64295903 M48.061 stable, s/p multiple back surgeries - [...] turned pt away, pending neurology referral in [facility] l c increasing cyclobenza monalisa to 10mg since not sleeping well - 5mg am, 5mg afternoon, 10mg qhs 3.24 - printed neuro order to call him in [place] 5.24 - advised by [place] neurosurge on to see local neurologis t [...] off her med list Psoriatic arthritis 1563 88451 L40.50 stable - cont humira as dir, [...] note 2.24 Mild major depression, single episode 90396591 F32.0 stable, cont duloxetine & bupropion & amitriptyl ine thru psychiatri - cont see q 3 months, no [...] neuropsych rec.pendin g see Dr. Montero on [id number] Thaddeus Jackson MD Main Office [address] [facility] [address] [place] [address] 11/23/2023 10:10:41 11/23/2023 11:28:04 Diabetic peripheral neuropathy 922394906 E11.40 diet / ex control p bariatric [...] - mounjaro not coveredrec heck A1c p 9 10.24 - encouraged pt to check outstandin g labs as directed Asthma 229660942 J45.90 9 10.24 - pt requests refill Gastroesop hageal reflux disease 030397873 K21.9 stable, cont ppi as dir, seen by gi - pending egd/colon in 12.08 - had egd = stable, but colon was full of stool - needs repeat next year p double split prep - see below 12.09 - pt requests refill Mild neuro cognitive disorder 359648061 G31.84 Required work up for referral to [...] st Spinal coy nosis of lumbar region 44970390 M48.061 stable, s/p multiple back surgeries - pt has tolerated anesthesia well in the past Has had 8 back surgeries. Last was [address] Luque. cont hep rec tyl 500mg 1-2 tabs up to 3x/day, reserve naproxen for prn 6.23 - ambulating better c [facility] 10.23 - worse pain lately, will get [facility] pain eval - to consider neural stimulator meanwhile, cont duloxetine as dir, cont gbn - has been on 900mg tid, but trial c prn m relaxer, cont alt ice/heat, cont salonpas - but rec change to o/n 11.23 - [facility] turned pt away, pending neurology referral in [facility] l c increasing cyclobenza monalisa to 10mg since not sleeping well - 5mg am, 5mg afternoon, 10mg qhs 3.24 - printed neuro order to call him in [place] 5.24 - advised by [place] neurosurge on to see local neurologis t = but no consult note to review - will attempt to getludivina stroud, will get pmr re-eval = looks like she last saw [facility] 2017 = will change to Dr Oneal [...] of this ov note to PMR Hyperlipidemia 74507968 E78.5 lipids nl, cont statin as dir [id number] Thaddeus Jackson MD Main Office [address] [place], [place] [address] 02/22/2024 10:02:36 02/22/2024 11:20:54 Diabetic peripheral neuropathy 488135510 E11.40 diet / ex control p bariatric surgery -- Continued follow up with Dr. Xander. cont f/u c eye md - last [...] f/u c eye Mild neuro cognitive disorder 968937829 G31.84 Required work up for referral to [...] to help prevent withdrawal see tucker sheldon belowalysia clarke f/u c Dr. Ortiz on Thursday - [...] weeks Spinal coy nosis of lumbar region 00358421 M48.061 stable, s/p multiple back surgeries - [...] turned pt away, pending neurology referral in [place] c increasing cyclobenza monalisa to 10mg since not sleeping well - 5mg am, 5mg afternoon, 10mg qhs 3.24 - printed neuro order to call him in [place] 5.24 - advised by [place] neurosurge on to see local neurologis t [...] for severe pain to help sleep)pend ing evkirt c specialist in pain psychology (Dr Parson) as per neuropsych rec. will fwd copy of this ov note to PMR 1.25 - seen by pain pyakshatogjanis t - cont f/ucont f/u c PMR Vitamin D deficiency 347 08798 E55.9 Hypertensi ve renal disease 82917435 I12.9 bp elevated but likely d/t pain, cont med as dir, recheck next month 01/12/23: BP stable in office today 1.25 - bp stable, cont med as dir, pending check labs p visit Chronic ki dney disease stage 2 625153957 N18.2 Hyperlipidemia 62398800 E78.5 lipids nl, cont statin as dir [id number] Thaddeus Jackson MD Main Office [address] [place] [address] 04/14/2024 10:20:30 04/14/2024 11:31:24 Adult health examination 821417166 Z00.00 pt defers pap & mammopt had colonoscop y 12.08 - but aborted d/t full of stool - rec recheck 1 yr, encouraged pt to call them sooner - printed colon report for pt had labs done 1.6.25 but [facility] didn't do a1c or lipids Diabetic p eripheral neuropathy 764066292 E11.40 diet / ex control p bariatric [...] c eye 2.25 - had labs done 1..25 but [facility] didn't do a1c or lipids - recheck a1cnl microalb last month Mild neuro cognitive disorder 237046767 G31.84 Required work up for referral to [...] the dose to help prevent withdrawal see cyclobenzcharis sheldon belowpendi ng f/u c Dr. Ortiz [...] /psych Spinal coy nosis of lumbar region 01477746 M48.061 stable, s/p multiple back surgeries - pt has tolerated anesthesia well in the past Has had 8 back surgeries. Last was [address] Luque. cont hep rec tyl 500mg 1-2 tabs up to 3x/day, reserve naproxen for prn 6.23 - ambulating better c [facility] 10.23 - worse pain lately, will get [facility] pain eval - to consider neural stimulator meanwhile, cont duloxetine as dir, cont gbn - has been on 900mg tid, but trial c prn m relaxer, cont alt ice/heat, cont salonpas - but rec change to o/n 11.23 - [facility] turned pt away, pending neurology referral in [place] c increasing cyclobenza monalisa to 10mg since not sleeping well - 5mg am, 5mg afternoon, 10mg qhs 3.24 - printed neuro order to call him in [place] 5.24 - advised by [place] neurosurge on to see local neurologis t [...] severe pain to help sleep)pend ing clare chow specialist in pain psychology (Dr Parson) as per neuropsych rec. will fwd copy of this ov note to PMR 1.25 - seen by pain psychologi st - cont f/ucont f/u c PMR Vitamin D deficiency 347 40199 E55.9 stable, cont supp as dir Hypertensi ve renal disease 39324282 I12.9 bp elevated but likely d/t pain, cont med as dir, recheck next month 01/12/23: BP stable in office today 1.25 - bp stable, cont med as dir, pending check labs p visit Chronic ki dney disease stage 2 551533610 N18.2 Hyperlipidemia 60936094 E78.5 lipids nl, cont statin as dir 2.25 - recheck Cough 03357837 R05.9 + h/o pna but no h/o asthmamost likely cough d/t pnd - see below - but back up plan -- if no better next week then check cxrhas prn alb at homecont mucinex Acute sinusitis 91012128 J01.90 recommend probiotics while on abxalso rec prn ns spray Body mass index 40+ - severely obese 076175429 E66.01 Z68.41 Moderate m ajor depression 240878 F32.1 stable, cont duloxetine & bupropion & [...] neuropsych rec.pendin g see Dr. Montero on 2.25 - fairly stable, cont meds, f/u c psych [id number] Thaddeus Jackson MD Main Office [address] [place], [place] [address] 08/15/2024 12:38:32 08/15/2024 13:50:36 Diabetic peripheral neuropathy 906953407 E11.40 diet / ex control p bariatric [...] lipids - recheck a1cnl microalb last month 6.25 - a1c down to 6.4 despite pred taper from rheumcont metformin 750mg bidrec fasting labs > 3 months Psoriatic arthritis 1563 42119 L40.50 stable - cont humira as dir, [...] ATC - rev last ov note 2.24 6.25 - used to take enbrel, humiracont pred taper as dirpending cosentyxco nt f/u c rheum as dir Hypertensi ve renal disease 75218807 I12.9 bp elevated but likely d/t pain, cont med as dir, recheck next month 01/12/23: BP stable in office today 6.25 - bp stable, cont med as dir, pending check labs ac next visit Chronic ki dney disease stage 2 887664849 N18.2 Pain of ri ght shoulder joint 0929998251 2313909 M25.511 587332 s/p sx, cont sling/PT as dir, cont f/u c ortho - next month 6.25 - prog worse over past 6 months - now cannot lay on it - will get ortho re-eval [id number] Thaddeus Jackson MD Main Office [address] [place] [address] 12/01/2024 09:42:14 12/01/2024 11:08:32 Influenza vaccine needed [id number] 106 Z23 65 YEARS AND OLDER Diabetic p eripheral neuropathy 218575271 E11.40 diet / ex control p bariatric [...] climb 6.23 - A1c stable at 6.3 11. - A1c increased at 6.9, fasting glucose [...] - mounjaro not coveredrec heck A1c p 9 10.24 - encouraged pt to check outstandin g labs as directedwi ll get podiatry re-evalcon t f/u c eye 2.25 - had labs done 1.6.25 but [facility] didn't do a1c or lipids - recheck a1cnl microalb last month 6.25 - a1c down to 6.4 despite pred taper from rheumcont metformin 750mg bidrec fasting labs > 3 months 10.25 - a1c stable at 6.5 - lost 7 lbs - despite pred taper from rheumcont metformin 750mg bidrec fasting labs > 3 months Hypertensi ve renal disease 15142231 I12.9 bp elevated but likely d/t pain, cont med as dir, recheck next month 01/12/23: BP stable in office today 6.25 - bp stable, cont med as dir, pending check labs ac next visit 10.25 - bp low, fort. is not orthostati c - but given recent wt loss, rec decrease lis from 10mg to 5mg qd Chronic ki dney disease stage 2 356165120 N18.2 Spinal coy nosis of lumbar region 06935564 M48.061 stable, s/p multiple back surgeries - [...] turned pt away, pending neurology referral in [place] c increasing cyclobenza monalisa to 10mg since not sleeping well - 5mg am, 5mg afternoon, 10mg qhs 3.24 - printed neuro order to call him in [place] 5.24 - advised by [place] neurosurge on to see local neurologis t = but no consult note to review - will attempt to getludivina stroud, will get pmr re-eval = looks like she last saw [facility] 2017 = will change to Dr Oneal [...] st - cont f/ucont f/u c PMR 10. - stable lately - pt requested refill m relaxercon t f/u c PMR - percocet infrequent ly Pain of ri ght shoulder joint 0706219898 6554338 M25.511 829577 s/p sx, cont sling/PT as dir, cont f/u c ortho - next month 6.25 - prog worse over past 6 months - now cannot lay on it - will get ortho re-eval 10.25 - cont f/u c ortho, pending emg in . Health Concerns Section Related Observation LastModified by Organization Detai ls LastModified Time None Recorded Concern Status LastModified by Organization Details LastModified Time None Recorded Advance Directives Directive Y: HCP Payers Insurance Date Sequence Insurance Name Policy Number Policy Wilson Covered Member ID Wilson Member ID Guarantor Name 12/01/2024 2 [place] SUPPLEMENT) [id number] Fara Crandall Parent [id number] Fara Crandall Parent 12/01/2024 1 MEDICARE B-[place]: [facility] Fara Crandall Parent [id number] Fara Crandall Parent 12/01/2024 1 [place] [id number] Fara Crandall Parent [id number] Fara Crandall Parent 12/01/2024 2 [place] [facility] Fara Crandall Parent [id number] Fara Crandall Parent 12/01/2024 2 [place] [facility] Fara Crandall Parent [id number] Fara Crandall Parent Notes Date Note Type Note Provider Name and Address Organization Details Recorded Time 4 text/html Hypertension F/UReported by PatientHPIFor associated symptoms, patient reportsno dizziness,no lightheadedness,no chest pain,no shortness of breath,no palpitations,no edema, andno calf pain with exertion. For lifestyle, patient reportsregular exerciseandlimiting/avoid ing salt. For medications, patient reportstaking medications as directedandno side effects from medication. Diabetes F/UReported by PatientHPIFor context, patient reportsseeing eye doctor regularlyandchecking feet regularly. For associated symptoms, patient reportsno weight gain,no weight loss,no confusion,no increased appetite,no increased urination,no blurred vision, andno numbness of feet.ROS as noted in the HPI Cora Lara PA-C [address], [id number], [facility] 11/23/2023 21:25:14 5 text/html Diabetes F/UReported by PatientHPIFor context, patient reportsnot taking aspirin dailybut reportsseeing eye doctor regularlyandchecking feet regularly. For associated symptoms, patient reportsno weight gain,no headaches,no increased appetite,no increased urination, andno blurred vision. Cora Lara PA-C [address], [phone], [facility] 02/22/2024 11:24:10 02/27/202 5 text/html Medicare Annual Wellness VisitReported by PatientSocial/Behavioral HistoryFor physical activity, patient reportsdoes not exercise on a regular basis. For diet and nutrition, patient reportsdiscussed portion controlanddiscussed diet improvement. For fracture risk, patient reportsno history of fracturesandno sudden unexplained fractures.Mental Status:For orientation, patient reportsno disorientation to time,no disorientation to date, andno disorientation to place. For concentration and memory, patient reportsno decreased concentrating ability,no memory lapses or loss, anddoes not forget words. For speech/motor difficulties, patient reportsno speech difficulties,no difficulty expressing formulated concepts,no difficulty with fine manipulative tasks,no difficulty writing/copying,no slowed reaction time, anddoes not knock things over when trying to pick them up. For depression risk, (see georgina/phq).Functional AbilityFor vision, patient reportsworse near. For hearing, patient reportsno loss of hearing. For activities of daily living, patient reportsable to bathe with limited or no assistance,able to contol urination and bowels,able to dress with limited or no assistance,able to feed self with limited or no assistance,able to get out of chair or bed with limited or no assistance,able to groom with limited or no assistance, andable to toilet with limited or no assistance. For instrumental activities of daily living, patient reportsable to do house work with limited or no assistance,able to grocery shop with limited or no assistance,able to manage medications with limited or no assistance,able to manage money with limited or no assistance,able to prepare meals with limited or no assistance, andable to use the phone with limited or no assistance. For falls risk assessment, patient reportsno frequent falls while walkingandno dizziness/vertigo. For home safety, patient reportsgood lighting in the home. Here for AWAlicia Lara PA-C [address] [address], [place], [address], [facility] 04/14/2024 11:42:40 5 text/html Diabetes F/UReported by PatientHPIFor context, patient reportsnot taking aspirin dailybut reportsseeing eye doctor regularlyandchecking feet regularly. For associated symptoms, patient reportsno weight gain,no headaches,no increased appetite,no increased urination, andno blurred vision. Cora Lara PA-C [address] [address], [place], [phone], [facility] 08/16/2024 19:14:46 5 text/html here for f/u DMhas lost 7 lbs - walking, diet - less portions, mindful of food [id number] stable at 6.5in general feeling better - babysitting great niece 3x/wk Cora Lara PA-C [address] [facility] [address], [place], [address], [facility] 12/01/2024 12:39:06 OBGyn Episode No OBEpisode recorded.
--- OUTSIDE RECORDS SUMMARY | 2024-12-06 13:50 | XMS_ITS | Continuity of Care Document ---
Author Organization [facility], Main Office Address [address] [facility] [address] [place] [address] Care Team Providers Care Painting Instructor Name Role Phone JOEL DAO Cushion Cover Inspector VALENTÍN MONTERO Psychiatrist KESHIA COOPER Wool Cleaner CORA LARA Primary Care Provider [phone] CORWIN DAVISON Cushion Cover Inspector RANDI CAMARENA Neurophysiologist JASON ONEAL Pain Management DANIEL BENJAMIN Geriatric Medicine SHADI CARVALHO Neuropsychologist TRISTON PENA Breaster Assessment No assessment recorded. Plan of Treatment Reminders Order Date Submit Date Provider Last Modified By Organization Details Last Modified Time Details Appointments [id number] 2025 08:45A M Cora Lara PAAlvaro Not available Not available Not available Lab HbA1c (hemoglob in A1c), blood 2024 026 [employer] [facility] (Centralized Electronic Ordering - All Locations), Patient Can Go To The Location Of Their Choice, [id number] 12/01/2024 11:03:47 BMP, serum or plasma 2024 026 [employer] [facility] (Centralized Electronic Ordering - All Locations), Patient Can Go To The Location Of Their Choice, [address] 12/01/2024 11:03:47 microalbu min/creat inine, mass ratio, urine 2024 026 [email or web address] [facility] (Centralized Electronic Ordering - All Locations), Patient Can Go To The Location Of Their Choice, [address] 12/01/2024 11:03:47 Referral diabetic ophthalmo logy referral 2024 [email or web address] Not available 12/01/2024 13:52:51 Procedures None recorded. Surgeries None recorded. Imaging None recorded. Medication Orders lisinopri l 5 mg tablet 2024 [facility] #[id number], [address], [place], [id number], 12/01/2024 11:03:55 cyclobenz aprine 5 mg tablet 2024 [facility] #[id number], [address] [place], [place], [id number], 12/01/2024 11:03:53 Patient Targets Encounter Date Encounter Id Patient Goals Patient Target Last Modified By Organization Details Last Modified Time 12/01/2024 [id number] Ongoing of Microalbumin/Cre atinine Ratio yearly Not [...] Modified By Organization Details Last Modified Time 12/01/2024 [id number] Medications (OTC , herbal therapies, supplements) reviewed and reconciled with patient and or caregiver, including potential side effects, drug interactions, instructions, and the consequences of not taking medication. Reviewed potential barriers to medication adherence, such as side effects from medication or cost of medication. [email or web address] Not available 12/01/2024 10:58:01 Reason for Referral Diabetic Ophthalmology Refer ral for Diabetic peripheral neuropathy Referring Physician: Cora Lara, Internal Medicine, Encounter Date: 12/01/2024 Results Created Date Observation Date Name Description Value Unit Range Abnormal Flag Note LastModifiedBy Organization Detail LastModifiedTime Result Notes None recorded. Problems Name Problem SNOMED Code Status Onset Date Resolution Date Notes Provider Name and Address Organization Details Recorded Time Asthma 651926789 Active Not Available [facility] 4 19:50:26 Chronic pain syndrome 678414739 Active Not Available [facility] 4 19:50:26 Depressi ve disorder 58868604 Completed 02/26/2015 Meme miranda [facility] 4 15:15:46 Type 2 diabetes mellitus without complica tion 158600581 Completed 05/01/2017 MEDINA Rouse [facility] 9 11:30:03 Gastroes ophageal reflux disease 001825015 Active Not Available [facility] 4 19:50:26 Essentia l hyperten kris 46346599 Completed 03/15/2022 Cora Lara PA-C [address] [facility] [address], [place], [address] , [facility] 3 10:04:39 Tobacco user 230533589 Completed 08/29/2015 MEDINA Rouse [facility] 6 09:59:57 History of clinical finding in subject 580233805 Completed 01/29/2016 MEDINA Rouse [facility] 6 10:42:37 Adult health examinat ion Completed 01/29/2016 MEDINA Rouse [facility] 6 10:42:26 Hyperlip idemia 80395096 Active Not Available [facility] 4 19:50:26 Spinal stenosis of lumbar region 51088387 Active Not Available [facility] 4 19:50:26 Obstruct kaye sleep apnea syndrome 54694672 Completed 06/18/2020 Cora Lara PA-C [address], [place], [address] , [facility] 1 11:29:15 Localize d, primary osteoart hritis of the shoulder region 135497836 Completed 03/15/2022 Cora Lara PA-C [address], [place], [address] , [facility] 3 10:06:07 Gastroin testinal obstruct ion 478973485 Completed 11/04/2016 Jason Irizarry MD [address], [place], [address] , [facility] 7 08:33:12 Persiste nt insomnia 002527963 Active Not Available [facility] 4 19:50:26 Psoriasi s 9801681 Completed 03/15/2022 Cora Lara PA-C [address], [place], [address] , [facility] 3 10:06:55 Rheumato id arthriti s 43556612 Completed 11/04/2016 Jason Irizarry MD [address], [place], [address] , [facility] 7 08:33:58 Morbid obesity 408276618 Active Not Available [facility] 4 19:50:26 Conducti on disorder of the heart 38208290 Active Not Available [facility] 4 19:50:26 Vitamin D deficien cy 52101498 Active Not Available [facility] 4 19:50:26 Body mass index 40+ - severely obese 615306636 Completed 02/27/2015 Meme miranda [facility] 3 10:07:59 Acute sinusiti s 74108827 Completed 01/29/2016 MEDINA Rouse, [facility] 6 10:42:01 Sinusiti s 39131027 Completed 01/29/2016 MEDINA Rouse, [facility] 6 10:42:32 Body mass index 30+ - obesity 229627464 Completed 03/15/2022 Cora Lara PA-C [address], [place], [address] , [facility] 3 10:03:53 Low back pain 206633096 Completed 03/13/2022 Cora Lara PA-C [address], [place], [address] , [facility] 3 14:00:57 Major depressi ve disorder 988215349 Completed 03/15/2022 Cora Lara PA-C [address], [place], [address] , [facility] 3 10:05:36 Blood in urine 15869167 Completed 07/02/2016 Maritza miranda [facility] 7 14:02:09 Diarrhea 38055491 Completed 01/29/2016 MEDINA Rouse, [facility] 6 10:42:42 Right lower quadrant pain 061419963 Completed 11/03/2016 MEDINA Rouse, [facility] 7 13:03:20 Pain of shoulder region 61536070 Completed 07/02/2016 Maritza miranda [facility] 7 14:02:03 Knee pain Completed 07/02/2016 Maritza miranda [facility] 7 14:02:00 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 85900224 Active Not Available [facility] 4 19:50:27 Type 2 diabetes mellitus without complica tion 421852200 Completed 10/12/2018 well controll ed after bariatri c surgery in 12/2013 MEDINA Rouse, [facility] 9 11:30:03 Electroc karen elliott abnormal 176190671 Completed 200708/30/2013 RECORDED 10/01/19 08 8:29AM BY DELORIS MILAN MA, ANNOTATI ON/ADDEN DUM Deloris chauhan MA null, [facility] 6 10:51:32 Acute bronchit is 71494663 Completed 200708/30/2013 RECORDED 10/01/19 08 8:29AM BY DELORIS MILAN MA, ANNOTATI ON/ADDEN DUM Deloris chauhan MA null, [facility] 6 10:51:32 Knee pain Completed 200708/30/2013 RECORDED 10/01/19 08 8:30AM BY DELORIS MILAN MA, ANNOTATI ON/ADDEN DUM Maritza miranda, [facility] 7 14:02:00 Electroc artiaraogrcharis m abnormal 340475747 Completed 200709/26/2013 RECORDED 10/01/19 08 8:29AM BY DELORIS MILAN MA, ANNOTATI ON/ADDEN DUM Deloris chauhan MA null, [facility] 6 10:51:32 Acute bronchit is 43489322 Completed 200709/26/2013 RECORDED 10/01/19 08 8:29AM BY DELORIS MILAN MA, ANNOTATI ON/ADDEN DUM MEDINA Rouse, [facility] 6 10:51:32 Knee pain Completed 200709/26/2013 RECORDED 10/01/19 08 8:30AM BY DELORIS MILAN MA, ANNOTATI ON/ADDEN DUM Maritza miranda, [facility] 7 14:02:00 Dysphagi a 16904145 Completed 200708/30/2013 RESOLVED DATE: 01/20/20 08; RECORDED 01/20/20 4:23PM BY JORGE Rai NP, ANNOTATI ON/ADDEN DUM MEDINA Rouse, [facility] 6 10:51:32 Dysphagi a 94998138 Completed 200709/26/2013 RESOLVED DATE: 01/20/20 08; RECORDED 01/20/20 4:23PM BY JORGE Rai NP, ANNOTATI ON/ADDEN MEDINA Engel, [facility] 6 10:51:32 Cellulit is and abscess of face [id number] Completed 200808/30/2013 RESOLVED DATE: 07/04/19 09; IMPRESSI ON: PT IS IMMUNE SUPPRESS ED WITH HUMIRA FOR RA, TREAT WITH LEVAQUIN ; RECORDED 07/04/19 9:11PM BY JORGE Rai NP, ANNOTATI ON/ADDEN MEDINA Engel, [facility] 6 10:51:32 Ulcerati ve rhinitis 33201613 Completed 200808/30/2013 DATE: 07/04/19 09; RECORDED 09/04/19 12 12:56PM BY DELORIS MILAN MA, ANNOTSILVER ON/ADDEN MEDINA Engel, [facility] 6 10:51:32 Otitis media 48852167 Completed 200808/30/2013 RESOLVED DATE: 07/04/19 09; RECORDED 07/04/19 09 9:11PM BY JORGE Rai NP, ANNOTATI ON/ADDEN DUM MEDINA Rouse, [facility] 6 10:51:32 Cellulit is and abscess of face 819300578 Completed 200809/26/2013 RESOLVED DATE: 07/04/19 09; IMPRESSI ON: PT IS IMMUNE SUPPRESS ED WITH HUMIRA FOR RA, TREAT WITH LEVAQUIN ; RECORDED 07/04/19 9:11PM BY JORGE Rai NP, ANNOTATI ON/ADDEN DUM Deloris Genia-MEDINA Greene, [facility] 6 10:51:32 Ulcerati ve rhinitis 88739878 Completed 200809/26/2013 DATE: 07/04/19; RECORDED 09/04/19 12:56PM BY DELORIS MILAN MA, MIGDALIA ON/ADDEN DUM MEDINA Rouse, [facility] 6 10:51:32 Otitis media 58625501 Completed 200809/26/2013 RESOLVED DATE: 07/04/19; RECORDED 07/04/19 9:11PM BY JORGE Rai NP, ANNOTATI ON/ADDEN DUM Deloris Genia-MEDINA Greene, [facility] 6 10:51:32 Lyme disease 90990402 Completed 201008/30/2013 RECORDED 02/18/19 11 1:17PM BY JASON IRIZARRY MD, ANNOTATI ON/ADDEN DUM Deloris MEDINA Levin, [facility] 6 10:51:32 Lyme disease 48626566 Completed 201009/26/2013 RECORDED 02/18/19 11 1:17PM BY JASON IRIZARRY MD, ANNOTATI ON/ADDEN DUM Deloris MEDINA Levin, [facility] 6 10:51:32 Immunosu ppressio n [id number] Completed 201108/30/2013 RECORDED 04/23/19 12 1:24PM BY ALBERTO HAMMONDS, MIGDALIA ON/ADDEN DUM Deloris GeniaMEDINA Telles, [facility] 6 10:51:32 Immunosu ppressio n [id number] Completed 201109/26/2013 RECORDED 04/23/19 12 1:24PM BY MIGDALIA MEZA ON/ADDEN DUM MEDINA Rouse, [facility] 6 10:51:32 Intrinsi c asthma 370910873 Completed 201108/30/2013 RECORDED 09/04/19 12 12:56PM BY DELORIS MILAN MA, MIGDALIA ON/ADDEN DUM MEDINA Rouse, [facility] 6 10:51:32 Screenin g for malignan t neoplasm of colon Completed 201108/30/2013 RECORDED 09/04/19 12 12:56PM BY DELORIS MILAN MA, ANNOTATI ON/ADDEN DUM MEDINA Rouse, [facility] 6 10:51:32 General symptom 062980342 Completed 201108/30/2013 STORY: SIGNIFIC ANT DECREASE IN EXERCISE TOLERANC E WITH TACHYCAR DEANNA.; RECORDED 09/04/19 12 12:56PM BY DELORIS MILAN MA, MIGDALIA ON/ADDEN DUM MEDINA Rouse, [facility] 6 10:51:32 Exophtha lmos 30511019 Completed 201108/30/2013 RECORDED 09/04/19 12 12:56PM BY DELORIS MILAN MA, ANNOTATI ON/ADDEN DUM MEDINA Rouse, [facility] 6 10:51:32 Kidney stone 51826017 Completed 201108/30/2013 RECORDED 09/04/19 12 12:56PM BY DELORIS MILAN MA, MIGDALIA ON/ADDEN DUM MEDINA Rouse, [facility] 6 10:51:32 Bursitis 55797844 Completed 201108/30/2013 RECORDED 09/04/19 12 12:56PM BY DELORIS MILAN MA, ANNOTATI ON/ADDEN DUM MEDINA Rouse, [facility] 6 10:51:32 Acute respirat ory failure 38363076 Completed 201108/30/2013 RECORDED 09/04/19 12 12:56PM BY DELORIS MILAN MA, ANNOTSILVER ON/ADDEN DUM MEDINA Rouse, [facility] 6 10:51:32 Essentia l hyperten kris 99351110 Completed 201108/30/2013 RECORDED 09/04/19 12 12:56PM BY DELORIS MILAN MA, ANNOTATI ON/ADDEN DUM Cora Lara PA-C [address] [facility] [address], [place], [address] , [facility] 3 10:04:39 Intrinsi c asthma 826063236 Completed 201109/26/2013 RECORDED 09/04/19 12 12:56PM BY DELORIS MILAN MA, ANNOTSILVER ON/ADDEN DUM MEDINA Rouse, [facility] 6 10:51:32 Screenin g for malignan t neoplasm of colon Completed 201109/26/2013 RECORDED 09/04/19 12 12:56PM BY DELORIS MILAN MA, MIGDALIA ON/ADDEN DUM MEDINA Rouse, [facility] 6 10:51:32 General symptom 707719709 Completed 201109/26/2013 STORY: SIGNIFIC ANT DECREASE IN EXERCISE TOLERANC E WITH TACHYCAR DEANNA.; RECORDED 09/04/19 12 12:56PM BY DELORIS MILAN MA, ANNOTATI ON/ADDEN DUM MEDINA Rouse, [facility] 6 10:51:32 Exophtha lmos 93178293 Completed 201109/26/2013 RECORDED 09/04/19 12 12:56PM BY DELORIS MILAN MA, ANNOTATI ON/ADDEN DUM MEDINA Rouse, [facility] 6 10:51:32 Kidney stone 01150452 Completed 201109/26/2013 RECORDED 09/04/19 12 12:56PM BY DELORIS MILAN MA, ANNOTATI ON/ADDEN DUM MEDINA Rouse, [facility] 6 10:51:32 Bursitis 39961519 Completed 201109/26/2013 RECORDED 09/04/19 12 12:56PM BY DELORIS MILAN MA, ANNOTATI ON/ADDEN DUM MEDINA Rouse, [facility] 6 10:51:32 Acute respirat ory failure 78819551 Completed 201109/26/2013 RECORDED 09/04/19 12 12:56PM BY DELORIS MILAN MA, ANNOTSILVER ON/ADDEN DUM MEDINA Rouse, [facility] 6 10:51:32 Adult health examinat ion Completed 201108/30/2013 RECORDED 12/16/19 12 9:06AM BY DELORIS MILAN MA, ANNOTSILVER ON/ADDEN DUM MEDINA Rouse, [facility] 6 10:42:26 Tobacco dependen ce syndrome 66151546 Completed 201108/30/2013 RECORDED 12/16/19 12 9:07AM BY DELORIS MILAN MA, ANNOTATI ON/ADDEN DUM Deloris Layo chauhan MA null, [facility] 6 10:51:32 Tobacco dependen ce syndrome 31194614 Completed 201109/26/2013 RECORDED 12/16/19 12 9:07AM BY DELORIS MILAN MA, ANNOTSILVER ON/ADDEN DUM Deloris Layo chauhan MA null, [facility] 6 10:51:32 Peptic ulcer 48448842 Completed 201208/30/2013 RECORDED 03/11/19 13 1:05AM BY JORGE Rai NP, ANNOTSILVER ON/ADDEN DUM Deloris Genia-Medina chauhan MA null, [facility] 6 10:51:32 Peptic ulcer 16288597 Completed 201209/26/2013 RECORDED 03/11/19 13 1:05AM BY JORGE Rai NP, ANNOTSILVER ON/ADDEN DUM Deloris Layo chauhan MA null, [facility] 6 10:51:32 Chronic pain syndrome 843339843 Completed 201208/30/2013 RECORDED 03/17/19 13 9:38AM BY DELORIS MILAN MA, ANNOTSILVER ON/ADDEN DUM MEDINA Rouse, [facility] 6 10:51:32 Diarrhea 83865099 Completed 201208/30/2013 IMPRESSI ON: RESOLVIN G PER PT. HAD A FORMED STOOL. SHE DID NOT DO THE STOOL TESTING AND WILL HOLD OFF SINCE DOES NOT HAVE LIQUID STOOL.; RECORDED 03/17/19 13 9:35AM BY DELORIS MILAN MA, ANNOTSILVER ON/ADDEN DUM Deloris MEDINA Levin, [facility] 6 10:42:42 Diarrhea 30609327 Completed 201209/26/2013 IMPRESSI ON: RESOLVIN G PER PT. HAD A FORMED STOOL. SHE DID NOT DO THE STOOL TESTING AND WILL HOLD OFF SINCE DOES NOT HAVE LIQUID STOOL.; RECORDED 03/17/19 13 9:35AM BY DELORIS MILAN MA, ANNOTSILVER ON/ADDEN DUM MEDINA Rouse, [facility] 6 10:42:42 Long-ter m drug therapy Completed 201208/30/2013 RECORDED 05/19/19 13 12:57PM BY DELORIS MILAN MA, ANNOTSILVER ON/ADDEN DUM MEDINA Rouse, [facility] 6 10:51:32 Renewal of prescrip tion Completed 201208/30/2013 RECORDED 05/19/19 13 12:57PM BY DELORIS MILAN MA, ANNOTSILVER ON/ADDEN DUM MEDINA Rouse, [facility] 6 10:51:32 Administ ration of diphther ia and tetanus vaccine Completed 201208/30/2013 RECORDED 05/19/19 13 12:57PM BY DELORIS MILAN MA, ANNOTSILVER ON/ADDEN DUM MEDINA Rouse, [facility] 6 10:51:32 Long-ter m drug therapy Completed 201209/26/2013 RECORDED 05/19/19 13 12:57PM BY DELORIS MILAN MA, ANNOTSILVER ON/ADDEN DUM MEDINA Rouse, [facility] 6 10:51:32 Renewal of prescrip tion Completed 201209/26/2013 RECORDED 05/19/19 13 12:57PM BY DELORIS MILAN MA, ANNOTSILVER ON/ADDEN DUM MEDINA Rouse, [facility] 6 10:51:32 Administ ration of diphther ia and tetanus vaccine Completed 201209/26/2013 RECORDED 05/19/19 13 12:57PM BY DELORIS MILAN MA, ANNOTATI ON/ADDEN DUM MEDINA Rouse, [facility] 6 10:51:32 Acute asthma 284213748 Completed 201208/30/2013 RECORDED 06/25/19 13 2:34PM BY DELORIS MILAN MA, ANNOTATI ON/ADDEN DUM MEDINA Rouse, [facility] 6 10:51:32 Acute sinusiti s 76345002 Completed 201208/30/2013 RECORDED 06/25/19 13 2:34PM BY DELORIS MILAN MA, ANNOTATI ON/ADDEN DUM MEDINA Rouse, [facility] 6 10:42:01 Cough 60482343 Completed 201208/30/2013 RECORDED 06/25/19 13 2:34PM BY DELORIS MILAN MA, ANNOTATI ON/ADDEN DUM MEDINA Rouse, [facility] 6 10:51:32 Acute asthma 080198077 Completed 201209/26/2013 RECORDED 06/25/19 13 2:34PM BY DELORIS MILAN MA, ANNOTATI ON/ADDEN DUM MEDINA Rouse, [facility] 6 10:51:32 Acute sinusiti s 37590083 Completed 201209/26/2013 RECORDED 06/25/19 13 2:34PM BY DELORIS MILAN MA, ANNOTATI ON/ADDEN DUM MEDINA Rouse, [facility] 6 10:42:01 Cough 07431430 Completed 201209/26/2013 RECORDED 06/25/19 13 2:34PM BY DELORIS MILAN MA, ANNOTATI ON/ADDEN DUM Deloris Genia-MEDINA Greene, [facility] 6 10:51:32 Screenin g for malignan t neoplasm of breast Completed 201208/30/2013 RECORDED 09/21/19 13 12:45PM BY ARLIN LIGHT MA, ANNOTATI ON/ADDEN DUM Deloris Genia-MEDINA Greene, [facility] 6 10:51:32 Edema 460004860 Completed 201208/30/2013 RECORDED 09/21/19 13 12:45PM BY ARLIN LIGHT MA, ANNOTSILVER ON/ADDEN DUM Deloris Genia-MEDINA Greene, [facility] 6 10:51:32 Leukocyt osis 053904566 Completed 201208/30/2013 RECORDED 09/21/19 13 12:45PM BY ARLIN LIGHT MA, ANNOTSILVER ON/ADDEN DUM Deloris MEDINA Levin, [facility] 6 10:51:32 Urine finding 617947611 Completed 201208/30/2013 IMPRESSI ON: ADD CULTURE; RECORDED 09/21/19 13 12:45PM BY ARLIN LIGHT MA, MIGDALIA ON/ADDEN DUM MEDINA Rouse, [facility] 6 10:51:32 Dyspnea 171817624 Completed 201208/30/2013 RECORDED 09/21/19 13 12:45PM BY ARLIN LIGHT MA ANNOTSILVER ON/ADDEN DUM Deloris MEDINA Levin, [facility] 6 10:51:32 Disorder of bursa of shoulder region 60833147 Completed 201208/30/2013 STORY: SHAYAN Javed HAS BEEN FOLLOWED BY DR. RAMACHANDRAN FOR RHEUMATO LOGY. UNDERLYI NG DIAGNOSI S OF RA AND PSORIATI C ARTHRITI S. HAS BEEN ON HUMIRA; RECORDED 09/21/19 13 12:45PM BY ARLIN LIGHT MA, ANNOTATI ON/ADDEN DUM Deloris Genia-MEDINA rGeene, [facility] 6 10:51:32 Full thicknes s rotator cuff tear 332381756 Completed 201208/30/2013 RECORDED 09/21/19 13 12:45PM BY ARLIN LIGHT MA, ANNOTSILVER ON/ADDEN DUM Deloris GeniaMEDINA Telles, [facility] 6 10:51:32 Screenin g for malignan t neoplasm of breast Completed 201209/26/2013 RECORDED 09/21/19 13 12:45PM BY ARLIN LIGHT MA, ANNOTSILVER ON/ADDEN DUM Deloris GeniaMEDINA Telles, [facility] 6 10:51:32 Edema 519499713 Completed 201209/26/2013 RECORDED 09/21/19 13 12:45PM BY ARLIN LIGHT MA ANNOTSILVER ON/ADDEN DUM Deloris MEDINA Levin, [facility] 6 10:51:32 Leukocyt osis 915459826 Completed 201209/26/2013 RECORDED 09/21/19 13 12:45PM BY ARLIN LIGHT MA ANNOTATI ON/ADDEN DUM Deloris GeniaMEDINA Telles [facility] 6 10:51:32 Urine finding 225275166 Completed 201209/26/2013 IMPRESSI ON: ADD CULTURE; RECORDED 09/21/19 13 12:45PM BY ARLIN LIGHT MA, ANNOTSILVER ON/ADDEN DUM Deloris GeniaMEDINA Telles [facility] 6 10:51:32 Dyspnea 814918439 Completed 201209/26/2013 RECORDED 09/21/19 13 12:45PM BY ARLIN LIGHT MA, ANNOTATI ON/ADDEN DUM MEDINA Rouse, [facility] 6 10:51:32 Disorder of bursa of shoulder region 43346171 Completed 201209/26/2013 STORY: SHAYAN Javed HAS BEEN FOLLOWED BY DR. RAMACHANDRAN FOR RHEUMATO LOGY. UNDERLYI NG DIAGNOSI S OF RA AND PSORIATI C ARTHRITI S. HAS BEEN ON HUMIRA; RECORDED 09/21/19 13 12:45PM BY ARLIN LIGHT MA, ANNOTATI ON/ADDEN DUM MEDINA Rouse, [facility] 6 10:51:32 Full thicknes s rotator cuff tear 147581412 Completed 201209/26/2013 RECORDED 09/21/19 13 12:45PM BY ARLIN LIGHT MA, ANNOTATI ON/ADDEN DUM MEDINA Rouse, [facility] 6 10:51:32 Influenz a vaccine needed 95640941512 06 Completed 201208/30/2013 RECORDED 10/23/19 13 4:09PM BY AUDIE OLIVARES, OFFICE VISIT MEDINA Rouse, [facility] 6 10:51:32 Influenz a vaccine needed 06055653691 06 Completed 201209/26/2013 RECORDED 10/23/19 13 4:09PM BY AUDIE OLIVARES, OFFICE VISIT MEDINA Rouse, [facility] 6 10:51:32 Malaise and fatigue 986738540 Completed 201208/30/2013 RECORDED 12/12/19 13 8:53AM BY DELORIS MILAN MA, ANNOTATI ON/ADDEN DUM MEDINA Rouse, [facility] 6 10:51:32 Malaise and fatigue 241803637 Completed 201209/26/2013 RECORDED 10/26/20 13 8:53AM BY DELORIS MILAN MA, ANNOTATI ON/ADDEN DUM MEDINA Rouse, [facility] 6 10:51:32 Pre-surg asher evaluati [...] MILAN MA, ANNOTATI ON/ADDEN DUM MEDINA Rouse, [facility] 6 10:51:32 Pre-surg asher evaluati [...] 13 4:03PM BY DELORIS MILAN MA, ANNOTATI ON/ADD DUM MEDINA Rouse, [facility] 6 10:51:32 Follow-u p encounte r Completed 201308/30/2013 RECORDED 05/12/19 14 2:21PM BY ANAMARIA RIVERA MA, ANNOTATI ON/ADDEN DUM MEDINA Rouse, [facility] 6 10:51:32 Laborato ry procedur e performe d [id number] Completed 201308/30/2013 RECORDED 05/12/19 14 2:21PM BY ANAMARIA RIVERA MA, ANNOTATI ON/ADDEN DUM Deloris Genia-MEDINA Greene, [facility] 6 10:51:32 Follow-u p encounte r Completed 201309/26/2013 RECORDED 05/12/19 14 2:21PM BY ANAMARIA RIVERA MA, ANNOTSILVER ON/ADDEN DUM Deloris Genia-MEDINA Greene, [facility] 6 10:51:32 Laborato ry procedur e performe d 226862319 Completed 201309/26/2013 RECORDED 05/12/19 14 2:21PM BY ANAMARIA RIVERA MA, ANNOTATI ON/ADDEN DUM Deloris Genia-MEDINA Greene, [facility] 6 10:51:32 Ex-smoke r 5888854 Active 2015 Not Available [facility] 4 19:50:27 Diabetic peripher al neuropat hy 790821604 Active 2016 Not Available [facility] 4 19:50:26 Vitamin B12 deficien cy (non anemic) 56353841 Active 2017 Not Available [facility] 4 19:50:26 Muscle pain 62722364 Active 2017 Not Available [facility] 4 19:50:27 Type 2 diabetes mellitus 38175612 Completed 201805/24/2018 MEDINA Rouse, [facility] 9 14:25:08 Hypergly cemia 89265306 Completed 201803/15/2022 Cora Lara PA-C [address] [facility] [address], [place], [address] , [facility] 3 10:04:55 Obesity 407466989 Completed 201806/18/2020 Fabi Bates RN null, [facility] 1 15:35:04 Obstruct kaye sleep apnea of adult 70796510588 03 Completed 202003/13/2022 Dx: G47.33 (mild) Cora Lara PA-C [address] [facility] [address], [place], [address] , [facility] 3 13:58:48 Obstruct kaye sleep apnea syndrome 56610707 Active 2020 Not Available [facility] 4 19:50:27 Severe dry skin 681179913 Active 2020 Not Available [facility] 4 19:50:27 Psoriati c arthriti s 300390844 Active 2021 Not Available [facility] 4 19:50:26 Pain of right shoulder joint 05289451239 494511 Active 2021 Cora Lara PA-C [address] [facility] [address], [place], [address] , [facility] 5 19:13:39 COVID-19 427154549 Active 2022 Not Available [facility] 4 19:50:27 Pneumoni tis 494014297 Completed 202203/15/2022 Cora Lara PA-C [address] [facility] [address], [place], [address] , [facility] 3 10:06:45 Hyperten sive renal disease 07191943 Active 2022 Not Available [facility] 4 19:50:26 Chronic kidney disease stage 2 147739288 Active 2022 Not Available [facility] 4 19:50:26 Iron deficien cy anemia [id number] Active 2022 Not Available [employer] 4 19:50:27 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 [id number] Active 2023 Cora Lara PA-C [address] [facility] [address], [place], [address] , [facility] 4 10:51:38 Mild memory disturba nce [id number] Completed 202311/23/2023 Cora Lara PA-C [address] [facility] [address], [place], [address] , [facility] 4 11:03:27 Mild major depressi on, single episode 44277967 Active 2023 Memejose m Fernandez null, [facility] 4 15:15:35 Mild neurocog nitive disorder 548047401 Active 2023 Cora Lara PA-C [address] [facility] [address], [place], [address] , [facility] 4 14:50:45 Notes:Some problems listed i n Documents: #[id number], #[id number], #[id number] could not be added to this patient's chart. Please review these documents and add these problems to the patient's chart manually as needed. Problem Notes None recorded. Procedures Surgical History Date Name Laterality Status Provider Name and Address Organization Details Recorded Time 2023 injection of sacroiliac joint completed Sonia Andrea [facility] 4 10:41:48 2023 diabetic retinopathy screening completed Sonia Andrea [facility] 4 12:36:50 2022 Chronic Pain Assessment completed Kesha Strauss MA [facility] 3 10:46:00 2022 Colonoscopy completed Sonia Andrea [facility] 3 11:35:01 2022 esophagogastroduodenoscopy completed Issa Andrea [facility] 3 11:35:07 2020 Diabetic Foot Exam (Monofilament) completed Cora Lara PA-C [address] [facility] [address], [place], [address], [facility] 1 21:06:41 2020 polysomnography completed Deloris matias MA [facility] 1 15:44:34 2020 arthroplasty of left shoulder completed Deloris matias MA [facility] 1 15:35:54 2019 Orthopedic Surgery completed Deloris matias MA [facility] 1 15:36:33 2018 injection completed Martita Cooley [facility] 9 10:18:41 2018 Diabetic Foot Exam (Monofilament) completed Deloris matias MA [facility] 9 14:23:33 2018 release of trigger thumb completed Deloris matias MA [facility] 9 14:36:23 2017 Diabetic Foot Exam (Monofilament) completed Deloris matias MA [facility] 8 10:31:14 2017 Glaucoma surgery completed Jason Irizarry MD [address], [place], [address], [facility] 8 11:14:40 2016 Carpal tunnel surgery completed Deloris matias MA [facility] 8 11:06:27 2016 Nerve surgery completed Jason Irizarry MD [address], [place], [address], [facility] 8 11:46:25 2016 Mini-Cog Test completed Deloris matias MA [facility] 7 13:00:13 2016 Chronic Pain Assessment completed Deloris matias MA [facility] 7 12:59:42 2016 Most Recent Mammogram completed Virginia Honeycutt [facility] Alicia [facility] 9 10:15:24 2016 Other completed Areli Rdzruddyjanis [facility] 7 14:27:22 2016 decompression of lumbar spine completed Deloris matias MA [facility] 1 15:51:46 2013 Lap sleeve gastrectomy completed Maritza Barragan [facility] 4 13:26:44 2012 Date of Last Colonoscopy completed Maritza Barragan [facility] 5 09:28:05 2008 Mammogram screening completed Deloris matias MA [facility] 8 11:10:32 Total hysterectomy completed Deloris matias MA [facility] 7 14:44:54 Back Surgery completed Deloris matias MA [facility] 8 11:10:06 Cholecystectomy completed RACHELL Chester [address] [facility] [address], [place], [address], [facility] 4 10:19:07 Hernia Repair completed RACHELL Chester [address], [place], [address], [facility] 4 10:19:07 Imaging Results None recorded. Procedure Notes None recorded. Medical Equipment None Reported. Allergies Allergen ID Allergen Name Allergen Category Reaction Reaction Severity Criticality Documentation Date Start Date Code Code System Note Provider Name and Address Organization Details Recorded Time 60459 adhesive environme nt,medica tion rash Not available Not available 03/14/2016 MEDINA Bowers [facility] 7 14:43:07 6387 Cleocin medicatio n hives itching Not available Not available Not available 08/30/20132013 2 RxNorm [facility] 7 14:42:54 6388 codeine medicatio n Not available Not available Not available 08/30/20132012 2670 RxNorm NAUSE A Not Available [facility] 4 19:50:25 6389 Decadron medicatio n hives itching Not available Not available Not available 08/30/20132013 55471 2 RxNorm MEDINA Bowers, [facility] 7 14:42:50 Medications Name Sig [...] at bedtime for 30 days. 11/09 completed 11.09 - not refilled , ? why Not [...] 10/03/19 11 10:15AM BY TARYN SMITH I, ANNOTATI ON/ADDEN DUM;DR. RAMACHANDRAN Not Available Not Available [...] 08 9:09PM BY JORGE Rai NP, ANNOTATI ON/ADD DUM; Not Available Not Available Not [...] 10:15AM BY TARYN SMITH I, MIGDALIA ON/ADDEN DUM; Not Available Not Available [...] 08/13/19 11 2:59PM BY MIGDALIA DREW ON/CHARLEE DUM;THIS ORDER DISCONTI NUED PER [facility] N. Not Available Not Available Not Available [...] RECORDED 11/30/19 07 1:50PM BY JORGE Rai, ADMINISTRATIVE SERVICES COORDINATOR, ANNOTATI ON/ADDEN DUM; Not Available Not Available [...] Not Available Not Available Not Available Fluvirin 0930-4157 45 mcg (15 mcg x 3)/0.5 mL [...] Updated DateTime 5 161.29 cm 38 kg/m2 86759.1 4 g 98 /min 98 % 98 % 97.9 [degF] 104/71 mm[Hg] Bob monsalve MA [facility] 5 10:23:03 Social History Question Answer Notes LastModified by Organizat ion Details LastModified Time Tobacco Smoking Status [facility] Smoker [facility] 10/31/2013 09:58:43 Do You Have An Advance [...] When Did You Quit Smoking? 14+yearssince magdaleno jrmargie Information not available 01/16/2021 Live Alone Or [...] without assistance or assistive devices? YESASSIST walker Information not available 04/14/2024 Are you able to care for yourself independently? 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[employer] Information not available 08/25/2014 Do you or [...] 10:33:13 Medical History Condition Response Diabetes Y Obesity Y Depression Y Asthma Y Skin Problems Y High Cholesterol Y Hypertension Y Gynecological History Statement/Question Response Date of Last Pap Smear Current Control Method Hysterectom y Date of Last Colonoscopy 05/05/2012 Most Recent Mammogram 07/30/2016 Obstetrics History GPAL:G 0 P 0 0 0 0 Immunizations Vaccine Type Date Status Note Provider Nam e and Address Organization Details Recorded Time Influenza, high-dose, trivalent, PF 5 completed MEDINA Zarate, [facility] 12/01/2024 10:45:22 Influenza, split virus, trivalent, PF 5 completed Not Available [facility] 03/06/2023 19:50:27 Pneumococcal conjugate PCV 13 5 completed Not Available [facility] 03/06/2023 19:50:27 Tdap 5 completed Not Available [facility] 03/06/2023 19:50:27 Influenza, split virus, trivalent, preservative 6 completed Not Available [facility] 03/06/2023 19:50:27 COVID-19, mRNA, LNP-S, PF, 30 mcg/0.3 mL dose 1 completed Not Available [facility] 03/06/2023 19:50:27 COVID-19, mRNA, LNP-S, PF, 30 mcg/0.3 mL dose 1 completed Not Available [facility] 03/06/2023 19:50:27 COVID-19, mRNA, LNP-S, PF, 30 mcg/0.3 mL dose 1 completed Not Available [facility] 03/06/2023 19:50:27 Influenza, split virus, quadrivalent, PF 0 completed Not Available [facility] 03/06/2023 19:50:27 Influenza, split virus, trivalent, preservative 1 completed Not Available [facility] 03/06/2023 19:50:27 zoster recombinant 2 completed Not Available [facility] 03/06/2023 19:50:27 COVID-19, mRNA, LNP-S, PF, 30 mcg/0.3 mL dose, ciarra-sucrose 2 completed Not Available [facility] 03/06/2023 19:50:27 zoster recombinant 1 completed Not Available [facility] 03/06/2023 19:50:27 Influenza, split virus, quadrivalent, PF 9 completed Not Available [facility] 03/06/2023 19:50:27 Influenza, split virus, quadrivalent, PF 7 completed Not Available [facility] 03/06/2023 19:50:27 Influenza, split virus, quadrivalent, PF 8 completed Not Available [facility] 03/06/2023 19:50:27 Influenza, MDCK, quadrivalent, PF 2 completed Not Available [facility] 03/06/2023 19:50:27 COVID-19, mRNA, LNP-S, PF, ciarra-sucrose, 30 mcg/0.3 mL 4 completed MEDINA Eason, [facility] 04/14/2024 10:31:13 Influenza, high-dose, trivalent, PF 4 completed [facility], [facility] 04/14/2024 10:31:13 Influenza, split virus, trivalent, PF 4 completed Not Available [facility] 03/05/2019 02:21:58 pneumococcal polysaccharide PPV23 6 completed Not Available [facility] 03/06/2023 19:50:27 pneumococcal polysaccharide PPV23 9 completed Not Available [facility] 03/06/2023 19:50:27 Influenza, split virus, trivalent, preservative 6 completed Not Available [facility] 03/06/2023 19:50:27 Td (adult), 2 Lf tetanus toxoid, preservative free, adsorbed 7 completed Not Available [facility] 03/06/2023 19:50:27 Influenza, split virus, trivalent, preservative 7 completed Not Available [facility] 03/06/2023 19:50:27 Influenza, split virus, trivalent, preservative 8 completed Not Available [facility] 03/06/2023 19:50:27 Influenza, split virus, trivalent, preservative 9 completed Not Available [facility] 03/06/2023 19:50:27 Influenza, split virus, trivalent, preservative 0 completed Not Available [facility] 03/06/2023 19:50:27 Influenza, split virus, trivalent, preservative 2 completed Not Available [facility] 03/06/2023 19:50:27 Tdap 3 completed Not Available [facility] 03/06/2023 19:50:27 influenza, seasonal, intradermal, preservative free 3 completed Not Available [facility] 03/06/2023 19:50:27 Influenza, split virus, quadrivalent, PF 3 completed Meme miranda MA [facility] 12/08/2022 14:44:09 Past Encounters Encounter ID Performer Location Encounter Start Date Encounter Closed Date Diagnosis/Indication Diagnosis SNOMED-CT Code Diagnosis ICD10 Code Diagnosis IMO Codes Diagnosis Note [id number] Thaddeus Jackson MD Main Office [address] [facility] [address] [facility] [phone] 12/01/2024 09:42:14 12/01/2024 11:08:32 Influenza vaccine needed [id number] 106 Z23 65 YEARS AND OLDER Diabetic p eripheral neuropathy 959965437 E11.40 diet / ex control p bariatric surgery -- Continued follow up with Dr. Terrell. cont f/u c eye md - last visit 10/23 showing no evidence of diabetic retinopath y [...] eye md 2.25 - had labs done 1.6.25 but [...] > 3 months Hypertensi ve renal disease 33055522 I12.9 bp elevated but likely d/t pain, cont med as dir, recheck next month 01/12/23: BP stable in office today 6.25 - bp stable, cont med as dir, pending check labs ac next visit 10.25 - bp low, fort. is not orthostati c - but given recent wt loss, rec decrease lis from 10mg to 5mg qd Chronic ki dney disease stage 2 323063490 N18.2 Spinal coy nosis of lumbar region 35738755 M48.061 stable, s/p multiple back surgeries - pt has tolerated anesthesia well in the past Has had 8 back surgeries. Last was [address] Luque. cont hep rec tyl 500mg 1-2 tabs up to 3x/day, reserve naproxen for prn 6.23 - ambulating better c [employer] 10.23 - worse pain lately, will get [facility] pain eval - to consider neural stimulator meanwhile, cont duloxetine as dir, cont gbn - has been on 900mg tid, but trial c prn m relaxer, cont alt ice/heat, cont salonpas - but rec change to o/n 11.23 - [facility] turned pt away, pending neurology referral in [facility] l c increasing cyclobenza monalisa to 10mg since not sleeping well - 5mg am, 5mg afternoon, 10mg qhs 3.24 - printed neuro order to call him in [place] 5.24 - advised by [place] neurosurge on to see local neurologis t [...] st - cont f/ucont f/u c PMR . - stable lately - pt requested refill m relaxercon t f/u c PMR - percocet infrequent ly Pain of ri ght shoulder joint [id number] 3673092 M25.511 423576 s/p sx, cont sling/PT as dir, cont f/u c ortho - next month 6.25 - prog worse over past 6 months - now cannot lay on it - will get ortho re-eval . - cont f/u c ortho, pending emg in 02.09 Health Concerns Section Related Observation LastModified by Organization Detai ls LastModified Time None Recorded Concern Status LastModified by Organization Details LastModified Time None Recorded Payers Encounter Date Sequence Insurance Name Policy Number Policy Wilson Covered Member ID Wilson Member ID Guarantor Name 12/01/2024 1 [place] [employer] Fara J Parent [id number] Fara Crandall Parent 12/01/2024 2 [place] [id number] Fara J Parent [id number] Fara Crandall Parent Notes Date Note Type Note Provider Name and Address Organization Details Recorded Time 12/01/2024 text/html here for f/u DMhas lost 7 lbs - walking, diet - less portions, mindful of food [id number] stable at 6.5in general feeling better - babysitting great niece 3x/wk Cora VASQUEZC [address] [address], [place], [address], [facility] 12/01/2024 12:39:06 OBGyn Episode No OBEpisode recorded.
[2024-12-06 13:56] LABS: MANUAL DIFF FLAG NO
[2024-12-06 14:01] LABS: Hematocrit 38.2 % (37.0-47.0); Hemoglobin 12.5 g/dl (12.0-16.0); Imm Gran Abs Auto 0.03 X10*3/uL (0.00-0.03); Imm Gran Pct Auto 0.3 % (0.0-0.4); Lymphocytes Absolute Auto 3.0 X10*3/uL (1.2-4.9); Mean Corpuscular HGB Conc 32.7 g/dl (31.0-35.0); Mean Corpuscular Hemoglobin 30.3 pg (27.0-33.0); Mean Corpuscular Volume 92.5 fL (80.0-98.0); NRBC Abs Auto 0.000 X10*3/uL (0.0-0.012); NRBC Pct Auto 0.0 /100WBC (0.0-0.2); Platelet Count 396 X10*3/uL (160-400); Red Blood Count 4.13 X10*6/uL (4.20-5.50); White Blood Count 10.3 X10*3/uL (4.8-10.8)
[2024-12-06 14:12] LABS: Alanine Aminotransferase 23 U/L (0-31); Aspartate Amino Transferase 23 U/L (5-31); Estimated Glomerular Filt Rate > 60
== END 2024-12-06 10:59 | disposition home or self-care (01) ==
LOC: HO.HKASLDS 10:58
PROVIDERS: PCP Physician Assistant Medical; Visit Provider Internal Medicine Rheumatology
DX: Z79.899 Other long term (current) drug therapy (principal)
CPT/HCPCS: 36415; 82565; 84450; 84460; 85025; 85652; 86140

== ENCOUNTER 2025-01-19 08:24 | Outpatient (AMB) | payer MEDICARE, SELFPAY ==
--- NOTE | 2025-01-19 08:28 | MHC.OFFVIS ---
Vital Signs 01/19/25 08:29 Height 5 ft 2 in BP 140/90 H Blood Pressure Location Rt brachial Position Sitting Pulse 98 Pulse Source Pulse Oximeter Pulse Oximetry (%) 100 Oxygen Delivery Method Room Air Intake Visit Reasons: 3months Intake Note: Patient presents today for patriotic arthritis. Accompanied by: Self / Same As Patient Allergies dexamethasone (From Decadron) Allergy (Intermediate, Verified 01/19/25 08:34) Itchy rash medical tapes Adverse Reaction (Mild, Uncoded 01/21/24 11:11) Rash HPI HPI 3months: Details: She is tolerating methotrexate. She has not noted any new change. Morning stiffness lasting all day. Hands are swollen. Prednisone caused temporary benefit. She has type 2 diabetes. Last Hemoglobin A1c was 5.7. She is on metformin. She has not been checking her blood sugars at home. [facility] Medical History Psoriatic arthritis Low back pain Bilateral cataracts FH: cholecystectomy Ulnar nerve compression Surgical History History of hysterectomy S/P tonsillectomy Previous back surgery Physical Exam Vital Signs: Last Vital Signs Pulse 98 01/19/25 08:29 BP 140/90 H 01/19/25 08:29 Pulse Ox 100 01/19/25 08:29 Oxygen Delivery Method Room Air 01/19/25 08:29 Const Other: General: Comfortable CVS: RRR Respiratory: clear to auscultation bilaterally. Good respiratory effort Skin: Plaque psoriasis present on bilateral extensor elbows MSK: Synovitis of bilateral 2nd to 3rd MCP, right IP, bilateral 3rd PIP with tenderness of all MCPs, IP knees and PIPs. Tender shoulders. She is able to carboy filler her hand. Shoulder abduction 90 degrees bilateral. Knee flexion is limited. No tenderness of ankles or MTPs. Assessment & Plan Assessment & Plan (1) Psoriatic arthritis: Comment: Psoriatic arthritis is uncontrolled. She is tolerating her symptoms at this time. She is tolerating methotrexate. We discussed changing methotrexate to subcutaneous injection due to greater bio availability and better safety profile. We discussed add on therapy with hydroxychloroquine. Discussed side effects, benefits and drug monitoring. Rheumatology history: Diagnosed in 2006. Secondary treatment failure with Humira and Enbrel (03/2023). She has unable to afford a high co-pay of biologics. She is not willing to share tax information to the financial assistance program for biologic treatments and Tere, therefore, she will not qualify for financial assistance. Code(s): L40.50 - Arthropathic psoriasis, unspecified Category: Medical Plan: Labs ordered for drug monitoring this visit and in 4 weeks. After lab results are back, I will increase methotrexate to 20 mg once weekly. She will be schedule next for nurse teaching visit for methotrexate subcutaneous injection. Continue folic acid 1 mg daily I will order hydroxychloroquine 400 mg daily after G6PD result is back Information on DMARD therapy given to patient. 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 Alanine Aminotransferase 1 Month Z79.899 - Other long-term (current) drug therapy Aspartate Amino Transferase 1 Month Z79.899 - 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 Complete Blood Count Auto Diff Today Z79.899 - Other long-term (current) drug therapy Alanine Aminotransferase Today Z79.899 - Other long-term (current) drug therapy Aspartate Amino Transferase Today Z79.899 - Other long-term (current) drug therapy Creatinine Today Z79.899 - 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
[2025-01-19 08:29] VITALS: BP 140/90; PULSE 98; O2SAT 100
== END 2025-01-19 09:02 | disposition home or self-care (01) ==
LOC: HO.RHES 08:25
PROVIDERS: PCP Physician Assistant Medical; Visit Provider Internal Medicine Rheumatology
DX: L40.50 Arthropathic psoriasis, unspecified (principal)
CPT/HCPCS: 99214; G2211

== ENCOUNTER 2025-01-19 08:24 | Outpatient (REF) | payer MEDICARE, SELFPAY ==
--- OUTSIDE RECORDS SUMMARY | 2025-01-19 09:53 | XMS_ITS | Clinical Summary ---
Author Organization [facility] Address [address] [phone] Phone Care Team Providers Care Leather Grader Name Role Phone Unavailable Primary Care Provider [...] 12/25/1998, 07/18/1995 OSTEOPOROSIS SCREENING INITIAL (ONE-TIME) 2023 INFLUENZA VACCINE (#1) 2024 , 12/06/2021, 11/20/2020, Additional history exists COVID-19 VACCINE ( season) 2024 06/17/2021, 12/28/2020, 06/28/2020, Additional history exists Adult [...] It is not the complete legal health record.[facility]
[2025-01-19 13:22] LABS: MANUAL DIFF FLAG NO
[2025-01-19 13:39] LABS: Hematocrit 38.1 % (37.0-47.0); Hemoglobin 12.2 g/dl (12.0-16.0); Imm Gran Abs Auto 0.03 X10*3/uL (0.00-0.03); Imm Gran Pct Auto 0.4 % (0.0-0.4); Lymphocytes Absolute Auto 2.6 X10*3/uL (1.2-4.9); Mean Corpuscular HGB Conc 32.0 g/dl (31.0-35.0); Mean Corpuscular Hemoglobin 30.3 pg (27.0-33.0); Mean Corpuscular Volume 94.5 fL (80.0-98.0); NRBC Abs Auto 0.000 X10*3/uL (0.0-0.012); NRBC Pct Auto 0.0 /100WBC (0.0-0.2); Platelet Count 380 X10*3/uL (160-400); Red Blood Count 4.03 X10*6/uL (4.20-5.50); White Blood Count 7.4 X10*3/uL (4.8-10.8)
[2025-01-19 14:10] LABS: Alanine Aminotransferase 24 U/L (0-31); Aspartate Amino Transferase 23 U/L (5-31); Estimated Glomerular Filt Rate > 60
[2025-01-19 14:19] LABS: Erythrocyte Sedimentation Rate 25 MM/HR (0-20)
[2025-01-25 10:54] LABS: Glucose-6-Phosphate Dehydrogen 16.5
== END 2025-01-19 08:25 | disposition home or self-care (01) ==
LOC: HO.HKASLDS 08:24
PROVIDERS: PCP Physician Assistant Medical; Visit Provider Internal Medicine Rheumatology
DX: Z51.81 Encounter for therapeutic drug level monitoring (principal); L40.50 Arthropathic psoriasis, unspecified; Z79.631 Long term (current) use of antimetabolite agent; Z79.899 Other long term (current) drug therapy
CPT/HCPCS: 36415; 82565; 82955; 84450; 84460; 85025; 85652; 86140; 99212

== ENCOUNTER 2025-02-07 12:29 | Outpatient (AMB) | payer MEDICARE, SELFPAY ==
--- NOTE | 2025-02-07 13:00 | A.PHYSOV_ITS ---
Intake Visit Reasons: 2M followup Intake Note: Patient is a 61 year old female here for a 2 month follow up. [employer] St[employer] Required: No Allergies dexamethasone (From Decadron) Allergy (Intermediate, Verified 02/07/25 13:00) Itchy rash medical tapes Adverse Reaction (Mild, Uncoded 02/07/25 13:00) Rash HPI Comments Details: Ms. Perdomo is a 63-year-old female seen in evaluation today for acute on chronic right-sided low back pain. Patient underwent right SI joint injection 12/02/2023. She denies any major relief. She still has pain at apex/10 over the right side low back. MRI of the lumbar spine is very reassuring. She is using pain medication sparingly with relief of her symptoms. She is requesting a refill today. Procedure: Right SI joint injection 12/02/2023 no relief. [facility] Medical History Psoriatic arthritis Low back pain Bilateral cataracts FH: cholecystectomy Ulnar nerve compression Surgical History History of hysterectomy S/P tonsillectomy Previous back surgery Social History (Updated 02/07/25 @ 13:01 by Nimisha Mayorga MA) Alcohol intake: current Alcohol intake frequency: does not drink Patient Tobacco Use Status: Never used Tobacco Review of Systems Narrative Low back pain, no incontinence, saddle anesthesia urinary retention. Physical Exam Exam Exam: Lumbar Spine: Examination of her lumbar spine, there is no visible swelling or deformity. She is tender to lower lumbar facets. She is otherwise nontender. Full range of motion of the lumbar spine. Special Tests: Lhermittes sign was negative Heel Toe walk is normal Left straight leg raise: Negative Right straight leg raise: Negative Special tests Zamzam test is negative Ganslen's test is negative SI Joint compression test negative Jorge test negative Piriformis stretch is negative Lower Extremities: Full range of motion bilateral lower extremities. No calf pain or edema. Neuro: Sensation: Intact to lower extremities bilaterally Strength L2 (Psoas): 5/5 on the left and 5/5 on the right. L3 (Quads): 5/5 on the left and 5/5 on the right. L4 (Ant tibialis): 5/5 on the left and 5/5 on the right. L5 (EHL) 5/5 on the left and 5/5 on the right. S1 (Gastroc): 5/5 on the left and 5/5 on the right. DTR L4: (Patellar) Left 2 Right 2 S1: (Achilles) Left 2 Right 2 Babinski Downgoing No pathologic clonus. No involuntary movement. Assessment & Plan Assessment & Plan (1) Lumbar radiculopathy: Code(s): M54.16 - Radiculopathy, lumbar region Category: Medical (2) Lumbar spondylosis: Code(s): M47.816 - Spondylosis without myelopathy or radiculopathy, lumbar region Category: Medical Plan: Ms. Perdomo is a 64-year-old female seen in evaluation today for chronic pain. She unfortunately she has had extensive treatment including Neurosurgery. She has not responded to recent injections. She is responding to Percocet for breakthrough pain sparingly. I will refill her prescription today. I reviewed her mass patent there are no red flags. She will not operate any heavy machinery while taking the Percocet. Follow-up with our office in 2 months as needed. Plan Thank you for allowing me to participate in the care of your patient. Medications: New oxycodone-acetaminophen 7.5-325 mg (Percocet) Partial Fill upon patient request. 1 tab PO Q6H PRN 28 tabs 0RF pain 7 days M47.816 - Spondylosis without myelopathy or radiculopathy, lumbar region, M54.16 - Radiculopathy, lumbar region Coding Level of Care Code Est Pt Level 3 (01291) Diagnoses Lumbar radiculopathy M54.16 Lumbar spondylosis M47.816
--- OUTSIDE RECORDS SUMMARY | 2025-02-07 13:31 | XMS_ITS | Clinical Summary ---
Author Organization [facility] Address [address] [phone] Phone Care Team Providers Care Stock Turner Name Role Phone Unavailable Primary Care Provider [...] It is not the complete legal health record.[facility]
--- OUTSIDE RECORDS SUMMARY | 2025-02-07 13:31 | XMS_ITS | Continuity of Care Document ---
Author Organization [facility], Main Office Address [address] [facility] [address] [place] [address] Care Team Providers Care Bulldogger Name Role Phone JOEL DAO Market Gardener [phone] VALENTÍN MONTERO Psychiatrist KESHIA COOPER Customer Sales Service Manager CORA LARA Primary Care Provider [phone] CORWIN DAVISON Market Gardener RANDI CAMARENA Neurophysiologist [phone] JASON ONEAL Pain Management DANIEL BENJAMIN Geriatric Medicine [phone] SHADI CARVALHO Neuropsychologist TRISTON PENA Folder And Notcher Assessment No assessment recorded. Plan of Treatment Reminders Order Date Submit Date Provider Last Modified By Organization Details Last Modified Time Details Appointments [id number] 2025 08:45A M Cora Lara PAAlvaro Not available Not available Not available Lab HbA1c (hemoglob in A1c), blood 2024 026 [facility] (Centralized Electronic Ordering - All Locations), Patient Can Go To The Location Of Their Choice, [id number] 12/01/2024 11:03:47 BMP, serum or plasma 2024 026 [facility] (Centralized Electronic Ordering - All Locations), Patient Can Go To The Location Of Their Choice, [address] 12/01/2024 11:03:47 microalbu min/creat inine, mass ratio, urine 2024 026 pmadden [facility] (Centralized Electronic Ordering - All Locations), Patient Can Go To The Location Of Their Choice, [address] 12/01/2024 11:03:47 Referral diabetic ophthalmo logy referral 2024 tony Not available 12/01/2024 13:52:51 Procedures None recorded. Surgeries None recorded. Imaging None recorded. Medication Orders lisinopri l 5 mg tablet 2024 [id number], [address], [place], [id number], 12/01/2024 11:03:55 cyclobenz aprine 5 mg tablet 2024 [id number], [address] [place] [place], [place], [id number], 12/01/2024 11:03:53 Patient Targets Encounter Date Encounter Id Patient Goals Patient Target Last Modified By Organization Details Last Modified Time 12/01/2024 [id number] Ongoing of Microalbumin/Cre atinine Ratio yearly Not [...] By Organization Details Last Modified Time 12/01/2024 [id number] Medications (OTC , herbal therapies, supplements) reviewed [...] Abnormal Flag Note LastModifiedBy Organization Detail LastModifiedTime 11/25/1911/24/2024 LIPID PANEL cholesterol, total 151 mg/dL 100-19 9 normal Not Available [facility] ([facility]) [address] [facility], [place], [address], 11/25/2024 08:07:42 11/25/1911/24/2024 LIPID PANEL triglyceride s 199 mg/dL 0-149 above high normal Not Available [facility] ([facility]) [address] [facility], [place], [address], 11/25/2024 08:07:42 11/25/1911/24/2024 LIPID PANEL HDL cholesterol 53 mg/dL >39 normal Not Available [facility] ([facility]) [address] [facility], [place], [address], 11/25/2024 08:07:42 11/25/1911/24/2024 LIPID PANEL VLDL cholesterol bettie 33 mg/dL 5-40 Not Available [facility] ([facility]) [address] [facility], [place], [address], 11/25/2024 08:07:42 11/25/19 25 11/24/2024 LIPID PANEL LDL chol calc ([facility]) 65 mg/dL 0-99 Not Available [facility] ([facility]) [address] [facility], [place], [address], 11/25/2024 08:07:42 11/25/1911/24/2024 LIPID PANEL LDL calc comment: FRONT END DEVELOPER Not Available [facility] ([facility]) [address] [facility], [place], [address], 11/25/2024 08:07:42 11/25/1911/25/2024 CK, TOTAL creatine kinase,total 28 U/L 32-182 below low normal Not Available [facility] ([facility]) [address] [facility], [place], [address], 11/25/2024 08:07:43 11/25/19 25 11/24/2024 HEMOG LOBIN A1C hemoglobin A1C 6.5 % 4.8-5. 6 above high normal Predi abete s: 5.7 - 6.4 Diabe renetta: >6.4 Glyce tawny contr ol for adult s with diabe renetta: <7.0 Not Available [facility] ([facility]) [address] [facility], [place], [address], 11/25/2024 08:07:43 12/28/1912/27/2024 elect romyo gram No observ ation record ed. [facility] [address] [place], [address], 12/27/2024 16:30:42 Result Notes None recorded. Problems Name Problem SNOMED Code Status Onset Date Resolution Date Notes Provider Name and Address Organization Details Recorded Time Asthma 445265703 Active Not Available [facility] 4 19:50:26 Chronic pain syndrome 005460498 Active Not Available [facility] 4 19:50:26 Depressi ve disorder 65832113 Completed 02/26/2015 Meme miranda [facility] 4 15:15:46 Type 2 diabetes mellitus without complica tion 460265329 Completed 05/01/2017 [facility] 9 11:30:03 Gastroes ophageal reflux disease 447637754 Active Not Available [facility] 4 19:50:26 Essentia l hyperten kris 54046966 Completed 03/15/2022 Cora Lara PA-C [address] [facility] [address], [place], [address] , [facility] 3 10:04:39 Tobacco user 594654815 Completed 08/29/2015 MEDINA Rouse, [facility] 6 09:59:57 History of clinical finding in subject 425553838 Completed 01/29/2016 MEDINA Rouse, [facility] 6 10:42:37 Adult health examinat ion Completed 01/29/2016 MEDINA Rouse, [facility] 6 10:42:26 Hyperlip idemia 22878681 Active Not Available [facility] 4 19:50:26 Spinal stenosis of lumbar region 35607122 Active Not Available [facility] 4 19:50:26 Obstruct kaye sleep apnea syndrome 27100615 Completed 06/18/2020 Cora Lara PA-C [address] [address], [place], [address] , [facility] 1 11:29:15 Localize d, primary osteoart hritis of the shoulder region 497440375 Completed 03/15/2022 Cora Lara PA-C [address] [address], [place], [address] , [facility] 3 10:06:07 Gastroin testinal obstruct ion 036186826 Completed 11/04/2016 Jason Irizarry MD [address] [address], [place], [address] , [facility] 7 08:33:12 Persiste nt insomnia 778907778 Active Not Available [facility] 4 19:50:26 Psoriasi s 7236423 Completed 03/15/2022 Cora Lara PA-C [address] [address], [place], [address] , [facility] 3 10:06:55 Rheumato id arthriti s 56362320 Completed 11/04/2016 Jason Irizarry MD [address], [place], [address] , [facility] 7 08:33:58 Morbid obesity 205263213 Active Not Available [facility] 4 19:50:26 Conducti on disorder of the heart 70880403 Active Not Available [facility] 4 19:50:26 Vitamin D deficien cy 07282950 Active Not Available [facility] 4 19:50:26 Body mass index 40+ - severely obese 566557638 Completed 02/27/2015 Meme miranda, [facility] 3 10:07:59 Acute sinusiti s 12549822 Completed 01/29/2016 MEDINA Rouse, [facility] 6 10:42:01 Sinusiti s 01661455 Completed 01/29/2016 MEDINA Rouse, [facility] 6 10:42:32 Body mass index 30+ - obesity 594318983 Completed 03/15/2022 Cora Lraa PA-C [address], [place], [address] , [facility] 3 10:03:53 Low back pain 937550349 Completed 03/13/2022 Cora Lara PA-C [address], [place], [address] , [facility] 3 14:00:57 Major depressi ve disorder 396721844 Completed 03/15/2022 Cora Lara PA-C [address], [place], [address] , [facility] 3 10:05:36 Blood in urine 54925889 Completed 07/02/2016 Maritza miranda, [facility] 7 14:02:09 Diarrhea 35105223 Completed 01/29/2016 MEDINA Rouse, [facility] 6 10:42:42 Right lower quadrant pain 275381735 Completed 11/03/2016 MEDINA Rouse, [facility] 7 13:03:20 Pain of shoulder region 56473094 Completed 07/02/2016 Maritza miranda, [facility] 7 14:02:03 Knee pain Completed 07/02/2016 Maritza miranda, [facility] 7 14:02:00 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 70516689 Active Not Available [facility] 4 19:50:27 Type 2 diabetes mellitus without complica tion 378317945 Completed 10/12/2018 well controll ed after bariatri c surgery in 12/2013 MEDINA Rouse, [facility] 9 11:30:03 Electroc ardiogra m abnormal 221478175 Completed 200708/30/2013 RECORDED 10/01/19 08 8:29AM BY DELORIS MILAN MA, ANNOTATI ON/ADDEN DUM MEDINA Rouse, [facility] 6 10:51:32 Acute bronchit is 38163690 Completed 200708/30/2013 RECORDED 10/01/19 08 8:29AM BY DELORIS MILAN MA, ANNOTATI ON/ADDEN DUM MEDINA Rouse, [facility] 6 10:51:32 Knee pain Completed 200708/30/2013 RECORDED 10/01/19 08 8:30AM BY DELORIS MILAN MA, ANNOTATI ON/ADDEN DUM Maritza miranda, [facility] 7 14:02:00 Electroc ardiogra m abnormal 149381240 Completed 200709/26/2013 RECORDED 10/01/19 08 8:29AM BY DELORIS MILAN MA, ANNOTATI ON/ADDEN DUM MEDINA Rouse, [facility] 6 10:51:32 Acute bronchit is 53500935 Completed 200709/26/2013 RECORDED 10/01/19 08 8:29AM BY DELORIS MILAN MA, ANNOTATI ON/ADDEN DUM MEDINA Rouse, [facility] 6 10:51:32 Knee pain Completed 200709/26/2013 RECORDED 10/01/19 08 8:30AM BY DELORIS MILAN MA, ANNOTATI ON/ADDEN DUM Maritza miranda, [facility] 7 14:02:00 Dysphagi a 56915256 Completed 200708/30/2013 RESOLVED DATE: 01/20/20 08; RECORDED 01/20/20 08 4:23PM BY JORGE Rai NP, ANNOTSILVER ON/ADDEN DUM MEDINA Rouse, [facility] 6 10:51:32 Dysphagi a 69721053 Completed 200709/26/2013 RESOLVED DATE: 01/20/20 08; RECORDED 01/20/20 08 4:23PM BY JORGE Rai NP, MIGDALIA ON/ADDEN DUM MEDINA Rouse, [facility] 6 10:51:32 Cellulit is and abscess of face 326722488 Completed 200808/30/2013 RESOLVED DATE: 07/04/19 09; IMPRESSI ON: PT IS IMMUNE SUPPRESS ED WITH HUMIRA FOR RA, TREAT WITH LEVAQUIN ; RECORDED 07/04/19 09 9:11PM BY JORGE Rai NP, ANNOTATI ON/ADDEN DUM MEDINA Rouse, [facility] 6 10:51:32 Ulcerati ve rhinitis 37885338 Completed 200808/30/2013 DATE: 07/04/19 09; RECORDED 09/04/19 12:56PM BY DELORIS MILAN MA, MIGDALIA ON/ADDEN DUM MEDINA Rouse, [facility] 6 10:51:32 Otitis media 67142209 Completed 200808/30/2013 RESOLVED DATE: 07/04/19 09; RECORDED 07/04/19 9:11PM BY JORGE Rai NP, MIGDALIA ON/ADDEN DUM MEDINA Rouse, [facility] 6 10:51:32 Cellulit is and abscess of face 796774941 Completed 200809/26/2013 RESOLVED DATE: 07/04/19 09; IMPRESSI ON: PT IS IMMUNE SUPPRESS ED WITH HUMIRA FOR RA, TREAT WITH LEVAQUIN ; RECORDED 07/04/19 9:11PM BY JORGE Rai NP, MIGDALIA ON/ADDEN DUM MEDINA Rouse, [facility] 6 10:51:32 Ulcerati ve rhinitis 71113644 Completed 200809/26/2013 DATE: 07/04/19 09; RECORDED 09/04/19 12:56PM BY DELORIS MILAN MA, ANNOTATI ON/ADDEN DUM MEDINA Rouse, [facility] 6 10:51:32 Otitis media 96944603 Completed 200809/26/2013 RESOLVED DATE: 07/04/19 09; RECORDED 07/04/19 9:11PM BY JORGE Rai NP, MIGDALIA ON/ADDEN DUM MEDINA Rouse, [facility] 6 10:51:32 Lyme disease 85329004 Completed 201008/30/2013 RECORDED 02/18/19 11 1:17PM BY JASON IRIZARRY MD, MIGDALIA ON/ADDEN DUM MEDINA Rouse, [facility] 6 10:51:32 Lyme disease 08148636 Completed 201009/26/2013 RECORDED 02/18/19 11 1:17PM BY JASON IRIZARRY MD, MIGDALIA ON/ADDEN DUM MEDINA Rouse, [facility] 6 10:51:32 Immunosu ppressio n [id number] Completed 201108/30/2013 RECORDED 04/23/19 12 1:24PM BY MIGDALIA MEZA ON/ADDEN DUM MEDINA Rouse, [facility] 6 10:51:32 Immunosu ppressio n [id number] Completed 201109/26/2013 RECORDED 04/23/19 12 1:24PM BY MIGDALIA MEZA ON/ADDEN DUM MEDINA Rouse, [facility] 6 10:51:32 Intrinsi c asthma 239009441 Completed 201108/30/2013 RECORDED 09/04/19 12 12:56PM BY DELORIS MILAN MA, MIGDALIA ON/ADDEN DUM MEDINA Rouse, [facility] 6 10:51:32 Screenin g for malignan t neoplasm of colon Completed 201108/30/2013 RECORDED 09/04/19 12 12:56PM BY DELORIS MILAN MA ANNOTSILVER ON/ADDEN DUM MEDINA Rouse, [facility] 6 10:51:32 General symptom 726690024 Completed 201108/30/2013 STORY: SIGNIFIC ANT DECREASE IN EXERCISE TOLERANC E WITH TACHYCAR DEANNA.; RECORDED 09/04/19 12 12:56PM BY DELORIS MILAN MA, ANNOTSILVER ON/ADDEN DUM MEDINA Rouse, [facility] 6 10:51:32 Exophtha lmos 81647462 Completed 201108/30/2013 RECORDED 09/04/19 12 12:56PM BY DELORIS MILAN MA, ANNOTATI ON/ADDEN DUM MEDINA Rouse, [facility] 6 10:51:32 Kidney stone 60032474 Completed 201108/30/2013 RECORDED 09/04/19 12 12:56PM BY DELORIS MILAN MA, ANNOTATI ON/ADDEN DUM MEDINA Rouse, [facility] 6 10:51:32 Bursitis 63063632 Completed 201108/30/2013 RECORDED 09/04/19 12 12:56PM BY DELORIS MILAN MA, ANNOTATI ON/ADDEN DUM MEDINA Rouse, [facility] 6 10:51:32 Acute respirat ory failure 85949288 Completed 201108/30/2013 RECORDED 09/04/19 12 12:56PM BY DELORIS MILAN MA, ANNOTATI ON/ADDEN DUM MEDINA Rouse, [facility] 6 10:51:32 Essentia l hyperten kris 58823753 Completed 201108/30/2013 RECORDED 09/04/19 12 12:56PM BY DELORIS MILAN MA, ANNOTATI ON/ADDEN DUM Cora Lara PA-C [address] [address], [place], [address] , [facility] 3 10:04:39 Intrinsi c asthma 626761351 Completed 201109/26/2013 RECORDED 09/04/19 12 12:56PM BY DELORIS MILAN MA, ANNOTATI ON/ADDEN DUM MEDINA Rouse, [facility] 6 10:51:32 Screenin g for malignan t neoplasm of colon Completed 201109/26/2013 RECORDED 09/04/19 12 12:56PM BY DELORIS MILAN MA, ANNOTSILVER ON/ADDEN DUM MEDINA Rouse, [facility] 6 10:51:32 General symptom 212799268 Completed 201109/26/2013 STORY: SIGNIFIC ANT DECREASE IN EXERCISE TOLERANC E WITH TACHYCAR DEANNA.; RECORDED 09/04/19 12 12:56PM BY DELORIS MILAN MA, ANNOTATI ON/ADDEN DUM MEDINA Rouse, [facility] 6 10:51:32 Exophtha lmos 75818871 Completed 201109/26/2013 RECORDED 09/04/19 12 12:56PM BY DELORIS MILAN MA, ANNOTSILVER ON/ADDEN DUM MEDINA Rouse, [facility] 6 10:51:32 Kidney stone 27218733 Completed 201109/26/2013 RECORDED 09/04/19 12 12:56PM BY DELORIS MILAN MA, ANNOTATI ON/ADDEN DUM MEDINA Rouse, [facility] 6 10:51:32 Bursitis 05788187 Completed 201109/26/2013 RECORDED 09/04/19 12 12:56PM BY DELORIS MILAN MA, ANNOTSILVER ON/ADDEN DUM MEDINA Rouse, [facility] 6 10:51:32 Acute respirat ory failure 20511867 Completed 201109/26/2013 RECORDED 09/04/19 12 12:56PM BY DELORIS MILAN MA, ANNOTATI ON/ADDEN DUM DelorisMEDINA Chávez, [facility] 6 10:51:32 Adult health examinat ion Completed 201108/30/2013 RECORDED 12/16/19 12 9:06AM BY DELORIS MILAN MA, ANNOTATI ON/ADDEN DUM DelorisMEDINA Chávez, [facility] 6 10:42:26 Tobacco dependen ce syndrome 72300276 Completed 201108/30/2013 RECORDED 12/16/19 12 9:07AM BY DELORIS MILAN MA, ANNOTATI ON/ADDEN DUM DelorisMEDINA Chávez, [facility] 6 10:51:32 Tobacco dependen ce syndrome 80701645 Completed 201109/26/2013 RECORDED 12/16/19 12 9:07AM BY DELORIS MILAN MA, ANNOTATI ON/ADDEN DUM Deloris MEDINA Levin, [facility] 6 10:51:32 Peptic ulcer 27793595 Completed 201208/30/2013 RECORDED 03/11/19 13 1:05AM BY JORGE Rai NP, ANNOTSILVER ON/ADDEN DUM Deloris MEDINA Levin, [facility] 6 10:51:32 Peptic ulcer 05943614 Completed 201209/26/2013 RECORDED 03/11/19 13 1:05AM BY JORGE Rai NP, ANNOTATI ON/ADDEN DUM MEDINA Rouse, [facility] 6 10:51:32 Chronic pain syndrome 838767718 Completed 201208/30/2013 RECORDED 03/17/19 13 9:38AM BY DELORIS MILAN MA, ANNOTATI ON/ADDEN DUM MEDINA Rouse, [facility] 6 10:51:32 Diarrhea 72578674 Completed 201208/30/2013 IMPRESSI ON: RESOLVIN G PER PT. HAD A FORMED STOOL. SHE DID NOT DO THE STOOL TESTING AND WILL HOLD OFF SINCE DOES NOT HAVE LIQUID STOOL.; RECORDED 03/17/19 13 9:35AM BY DELORIS MILAN MA, MIGDALIA ON/ADDEN DUM MEDINA Rouse, [facility] 6 10:42:42 Diarrhea 89825354 Completed 201209/26/2013 IMPRESSI ON: RESOLVIN G PER PT. HAD A FORMED STOOL. SHE DID NOT DO THE STOOL TESTING AND WILL HOLD OFF SINCE DOES NOT HAVE LIQUID STOOL.; RECORDED 03/17/19 13 9:35AM BY DELORIS MILAN MA, ANNOTATI ON/ADDEN DUM MEDINA Rouse, [facility] 6 10:42:42 Long-ter m drug therapy Completed 201208/30/2013 RECORDED 05/19/19 13 12:57PM BY DELORIS MILAN MA, ANNOTATI ON/ADDEN DUM MEDINA Rouse, [facility] 6 10:51:32 Renewal of prescrip tion Completed 201208/30/2013 RECORDED 05/19/19 13 12:57PM BY DELORIS MILAN MA, ANNOTATI ON/ADDEN DUM MEDINA Rouse, [facility] 6 10:51:32 Administ ration of diphther ia and tetanus vaccine Completed 201208/30/2013 RECORDED 05/19/19 13 12:57PM BY DELORIS MILAN MA, ANNOTATI ON/ADDEN DUM MEDINA Rouse, [facility] 6 10:51:32 Long-ter m drug therapy Completed 201209/26/2013 RECORDED 05/19/19 13 12:57PM BY DELORIS MILAN MA, ANNOTATI ON/ADDEN DUM MEDINA Rouse, [facility] 6 10:51:32 Renewal of prescrip tion Completed 201209/26/2013 RECORDED 05/19/19 13 12:57PM BY DELORIS MILAN MA, ANNOTSILVER ON/ADDEN DUM MEDINA Rouse, [facility] 6 10:51:32 Administ ration of diphther ia and tetanus vaccine Completed 201209/26/2013 RECORDED 05/19/19 13 12:57PM BY DELORIS MILAN MA, ANNOTSILVER ON/ADDEN DUM MEDINA Rouse, [facility] 6 10:51:32 Acute asthma 030249640 Completed 201208/30/2013 RECORDED 06/25/19 13 2:34PM BY DELORIS MILAN MA, ANNOTSILVER ON/ADDEN DUM MEDINA Rouse, [facility] 6 10:51:32 Acute sinusiti s 50262280 Completed 201208/30/2013 RECORDED 06/25/19 13 2:34PM BY DELORIS MILAN MA, ANNOTSILVER ON/ADDEN DUM MEDINA Rouse, [facility] 6 10:42:01 Cough 73203693 Completed 201208/30/2013 RECORDED 06/25/19 13 2:34PM BY DELORIS MILAN MA, ANNOTSILVER ON/ADDEN DUM MEDINA Rosue, [facility] 6 10:51:32 Acute asthma 256345620 Completed 201209/26/2013 RECORDED 06/25/19 13 2:34PM BY DELORIS MILAN MA, ANNOTATI ON/ADDEN DUM Deloris GeniaMEDINA Telles, [facility] 6 10:51:32 Acute sinusiti s 79979630 Completed 201209/26/2013 RECORDED 06/25/19 13 2:34PM BY DELORIS MILAN MA, ANNOTSILVER ON/ADDEN DUM MEDINA Rouse, [facility] 6 10:42:01 Cough 37613962 Completed 201209/26/2013 RECORDED 06/25/19 13 2:34PM BY DELORIS MILAN MA, ANNOTATI ON/ADDEN DUM MEDINA Rouse, [facility] 6 10:51:32 Screenin g for malignan t neoplasm of breast Completed 201208/30/2013 RECORDED 09/21/19 13 12:45PM BY ARLIN LIGHT MA, ANNOTSILVER ON/ADDEN DUM Deloris MEDINA Levin, [facility] 6 10:51:32 Edema 142872477 Completed 201208/30/2013 RECORDED 09/21/19 13 12:45PM BY ARLIN LIGHT MA, ANNOTSILVER ON/ADDEN DUM Deloris MEDINA Levin, [facility] 6 10:51:32 Leukocyt osis 544024973 Completed 201208/30/2013 RECORDED 09/21/19 13 12:45PM BY ARLIN LIGHT MA, ANNOTSILVER ON/ADDEN DUM Deloris MEDINA Levin, [facility] 6 10:51:32 Urine finding 779419466 Completed 201208/30/2013 IMPRESSI ON: ADD CULTURE; RECORDED 09/21/19 13 12:45PM BY ARLIN LIGHT MA, ANNOTATI ON/ADDEN DUM Deloris MEDINA Levin, [facility] 6 10:51:32 Dyspnea 444479833 Completed 201208/30/2013 RECORDED 09/21/19 13 12:45PM BY ARLIN LIGHT MA ANNOTATI ON/ADDEN DUM Deloris MEDINA Levin, [facility] 6 10:51:32 Disorder of bursa of shoulder region 06595656 Completed 201208/30/2013 STORY: SHAYAN Javed HAS BEEN FOLLOWED BY DR. RAMACHANDRAN FOR RHEUMATO LOGY. UNDERLYI NG DIAGNOSI S OF RA AND PSORIATI C ARTHRITI S. HAS BEEN ON HUMIRA; RECORDED 09/21/19 13 12:45PM BY ARLIN LIGHT MA ANNOTATI ON/ADDEN DUM Deloris MEDINA Levin, [facility] 6 10:51:32 Full thicknes s rotator cuff tear 080889858 Completed 201208/30/2013 RECORDED 09/21/19 13 12:45PM BY ARLIN LIGHT MA, ANNOTSILVER ON/ADDEN DUM Deloris MEDINA Levin, [facility] 6 10:51:32 Screenin g for malignan t neoplasm of breast Completed 201209/26/2013 RECORDED 09/21/19 13 12:45PM BY ARLIN LIGHT MA, ANNOTATI ON/ADDEN DUM Deloris MEDINA Levin, [facility] 6 10:51:32 Edema 238341936 Completed 201209/26/2013 RECORDED 09/21/19 13 12:45PM BY ARLIN LIGHT MA, ANNOTATI ON/ADDEN DUM Deloris MEDINA Levin, [facility] 6 10:51:32 Leukocyt osis 567346165 Completed 201209/26/2013 RECORDED 09/21/19 13 12:45PM BY ARLIN LIGHT MA, ANNOTATI ON/ADDEN DUM MEDINA Rouse [facility] 6 10:51:32 Urine finding 951977817 Completed 201209/26/2013 IMPRESSI ON: ADD CULTURE; RECORDED 09/21/19 13 12:45PM BY ARLIN LIGHT MA, ANNOTATI ON/ADDEN DUM MEDINA Rouse [facility] 6 10:51:32 Dyspnea 027934293 Completed 201209/26/2013 RECORDED 09/21/19 13 12:45PM BY ARLIN LIGHT MA, ANNOTATI ON/ADDEN DUM MEDINA Rouse [facility] 6 10:51:32 Disorder of bursa of shoulder region 96229952 Completed 201209/26/2013 STORY: SHAYAN Javed HAS BEEN FOLLOWED BY DR. RAMACHANDRAN FOR RHEUMATO LOGY. UNDERLYI NG DIAGNOSI S OF RA AND PSORIATI C ARTHRITI S. HAS BEEN ON HUMIRA; RECORDED 09/21/19 13 12:45PM BY ARLIN LIGHT MA, ANNOTATI ON/ADDEN DUM MEDINA Rouse [facility] 6 10:51:32 Full thicknes s rotator cuff tear 504097085 Completed 201209/26/2013 RECORDED 09/21/19 13 12:45PM BY ARLIN LIGHT MA, ANNOTATI ON/ADDEN DUM MEDINA Rouse [facility] 6 10:51:32 Influenz a vaccine needed 70650151167 06 Completed 201208/30/2013 RECORDED 10/23/19 13 4:09PM BY NELIDA OLIVARES, OFFICE VISIT MEDINA Rouse [facility] 6 10:51:32 Influenz a vaccine needed 39045189906 06 Completed 201209/26/2013 RECORDED 10/23/19 13 4:09PM BY NELIDA OLIVARES, OFFICE VISIT MEDINA Rouse, [facility] 6 10:51:32 Malaise and fatigue 444207171 Completed 201208/30/2013 RECORDED 12/12/19 13 8:53AM BY DELORIS MILAN MA, ANNOTATI ON/ADDEN DUM MEDINA Rouse, [facility] 6 10:51:32 Malaise and fatigue 192870384 Completed 201209/26/2013 RECORDED 12/12/19 13 8:53AM BY DELORIS MILAN MA, ANNOTATI ON/ADDEN DUM MEDINA Rouse, [facility] 6 10:51:32 Pre-surg asher evaluati [...] MILAN MA, MIGDALIA ON/ADDEN DUM MEDINA Rouse, [facility] 6 10:51:32 Pre-surg asher evaluati [...] MA, ANNOTATI ON/ADDEN DUM Deloris Genia-MEDINA Greene, [facility] 6 10:51:32 Follow-u p encounte r Completed 201308/30/2013 RECORDED 05/12/19 14 2:21PM BY ANAMARIA RIVERA MA, MIGDALIA ON/ADDEN DUM Deloris Genia-MEDINA Greene, [facility] 6 10:51:32 Laborato ry procedur e performe d 782003710 Completed 201308/30/2013 RECORDED 05/12/19 14 2:21PM BY ANAMARIA RIVERA MA, MIGDALIA ON/ADDEN DUM Deloris Genia-MEDINA Greene, [facility] 6 10:51:32 Follow-u p encounte r Completed 201309/26/2013 RECORDED 05/12/19 14 2:21PM BY ANAMARIA RIVERA MA, MIGDALIA ON/ADDEN DUM Deloris Genia-MEDINA Greene, [facility] 6 10:51:32 Laborato ry procedur e performe d 183803603 Completed 201309/26/2013 RECORDED 05/12/19 14 2:21PM BY ANAMARIA RIVERA MA, MIGDALIA ON/ADDEN DUM Deloris Genia-MEDINA Greene, [facility] 6 10:51:32 Ex-smoke r 4830381 Active 2015 Not Available [facility] 4 19:50:27 Diabetic peripher al neuropat hy 174800199 Active 2016 Not Available [facility] 4 19:50:26 Vitamin B12 deficien cy (non anemic) 59493138 Active 2017 Not Available [facility] 4 19:50:26 Muscle pain 72991151 Active 2017 Not Available [facility] 4 19:50:27 Type 2 diabetes mellitus 12121754 Completed 201805/24/2018 Deloris chauhan MA null, [facility] 9 14:25:08 Hypergly cemia 17884653 Completed 201803/15/2022 Cora Lara PA-C [address], [place], [address] , [facility] 3 10:04:55 Obesity 976628997 Completed 201806/18/2020 Fabi Bates RN null, [facility] 1 15:35:04 Obstruct kaye sleep apnea of adult [id number] 03 Completed 202003/13/2022 Dx: G47.33 (mild) Cora Lara PA-C [address], [place], [address] , [facility] 3 13:58:48 Obstruct kaye sleep apnea syndrome 59218115 Active 2020 Not Available [facility] 4 19:50:27 Severe dry skin 845527186 Active 2020 Not Available [facility] 4 19:50:27 Psoriati c arthriti s 014898014 Active 2021 Not Available [facility] 4 19:50:26 Pain of right shoulder joint 67749929930 167122 Active 2021 Cora Lara PA-C [address], [place], [address] , [facility] 5 19:13:39 COVID-19 265353000 Active 2022 Not Available [facility] 4 19:50:27 Pneumoni tis 369558538 Completed 202203/15/2022 Cora Lara PA-C [address] [facility] [address], [place], [address] , [facility] 3 10:06:45 Hyperten sive renal disease 92192514 Active 2022 Not Available [facility] 4 19:50:26 Chronic kidney disease stage 2 383887252 Active 2022 Not Available [facility] 4 19:50:26 Iron deficien cy anemia 66242780 Active 2022 Not Available [facility] 4 19:50:27 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 26161104719 97580 Active 2023 Cora Lara PA-C [address] [facility] [address], [place], [address] , [facility] 4 10:51:38 Mild memory disturba nce 800911202 Completed 202311/23/2023 Cora Lara PA-C [address] [facility] [address], [place], [address] , [facility] 4 11:03:27 Mild major depressi on, single episode 74186567 Active 2023 Meme miranda, [facility] 4 15:15:35 Mild neurocog nitive disorder 409217135 Active 2023 Cora Lara PA-C [address] [facility] [address], [place], [address] , [facility] 4 14:50:45 Notes:Some problems listed i n Documents: #[id number], #[id number], #[id number] could not be added to this patient's chart. Please review these documents and add these problems to the patient's chart manually as needed. Problem Notes None recorded. Procedures Surgical History Date Name Laterality Status Provider Name and Address Organization Details Recorded Time 2023 injection of sacroiliac joint completed Sonia Andrea [facility] 4 10:41:48 2023 diabetic retinopathy screening completed Sonia Andrea [facility] 4 12:36:50 2022 Chronic Pain Assessment completed Kesha Strauss [place] [facility] 3 10:46:00 2022 Colonoscopy completed Sonia Andrea [facility] 3 11:35:01 2022 esophagogastroduodenoscopy completed Issa Andrea [facility] 3 11:35:07 2020 Diabetic Foot Exam (Monofilament) completed Cora Lara PA-C [address] [place], [address] [place] [address] 1 21:06:41 2020 polysomnography completed Deloris matias [place] [facility] 1 15:44:34 2020 arthroplasty of left shoulder completed Deloris matias [place] [facility] 1 15:35:54 2019 Orthopedic Surgery completed Deloris matias MA [facility] 1 15:36:33 2018 injection completed Martita Cooley [facility] 9 10:18:41 2018 Diabetic Foot Exam (Monofilament) completed Deloris matias [place] [facility] 9 14:23:33 2018 release of trigger thumb completed Deloris matias [place] [facility] 9 14:36:23 2017 Diabetic Foot Exam (Monofilament) completed Deloris matias [place] [facility] 8 10:31:14 2017 Glaucoma surgery completed Jason Irizarry MD [address], [place], [address], [facility] 8 11:14:40 2016 Carpal tunnel surgery completed Deloris matias [place] [facility] 8 11:06:27 2016 Nerve surgery completed Jason Irizarry MD [address], [place], [address], [facility] 8 11:46:25 2016 Mini-Cog Test completed Deloris matias MA [facility] 7 13:00:13 2016 Chronic Pain Assessment completed Deloris matias [place] [facility] 7 12:59:42 2016 Most Recent Mammogram completed Virginia Castro [facility] 9 10:15:24 2016 Other completed Renate Cruz [facility] 7 14:27:22 2016 decompression of lumbar spine completed Deloris matias [place] [facility] 1 15:51:46 2013 Lap sleeve gastrectomy completed Maritza Barragan [place] [facility] 4 13:26:44 2012 Date of Last Colonoscopy completed Maritza Barragan MA [facility] 5 09:28:05 2008 Mammogram screening completed Deloris matias MA [facility] 8 11:10:32 Total hysterectomy completed Deloris matias [place] [facility] 7 14:44:54 Back Surgery completed Deloris matias [place] [facility] 8 11:10:06 Cholecystectomy completed SHANIA ChesterUP [address] [facility] [address], [place], [address], [facility] 4 10:19:07 Hernia Repair completed Kathrin BarnettRa Davidmaríasimona, PASUP [address] [facility] [address], [place], [address], [facility] 4 10:19:07 Imaging Results None recorded. Procedure Notes None recorded. Medical Equipment None Reported. Allergies Allergen ID Allergen Name Allergen Category Reaction Reaction Severity Criticality Documentation Date Start Date Code Code System Note Provider Name and Address Organization Details Recorded Time 27088 adhesive environme nt,medica tion rash Not available Not available 03/14/2016 [facility] 7 14:43:07 6387 Cleocin medicatio n hives itching Not available Not available Not available 08/30/20132013 2 RxNorm [facility] 7 14:42:54 6388 codeine medicatio n Not available Not available Not available 08/30/20132012 2670 RxNorm NAUSE A Not Available [facility] 4 19:50:25 6389 Decadron medicatio n hives itching Not available Not available Not available 08/30/20132013 74236 2 RxNorm [facility] 7 14:42:50 Medications Name Sig Start Date [...] 08 4:16PM BY JORGE Rai NP, JUDYATI ON/ADDEN DUM; [...] completed Not Available Not Available Not Available SunLinkTouch Ultra Test strips TEST TWICE DAILY for [...] 05/26/19 12 9:35AM BY JASON IRIZARRY MD, ANNOTSILVER ON/ADDEN DUM; Not Available Not Available Not [...] MIGDALIA DREW ON/;THIS ORDER DISCONTI NUED PER [facility] N. Not Available Not Available [...] 08/13/19 11 2:59PM BY MIGDALIA DREW ON/ DUM; Not Available Not Available Not [...] 08/12 completed RECORDED 08/13/19 11 2:59PM BY MIGADLIA DREW ON/CHARLEE LUJAN; Not Available Not Available Not Available acetamino phen 975 mg , 3 tablets by mouth every 8 hours 05/09 completed Not Available Not Available Not Available vitamin E 1 tablet po daily active Not Available Not Available No t Available omeprazol e TWO TIMES DAILY 08/12 completed RECORDED 08/13/19 11 2:59PM BY MIGDALIA DREW ON/CHARLEE LUJAN; Not Available Not Available Not Available Fish [...] completed RECORDED 08/13/19 11 3:00PM BY RENATE CRUZ ANNOTSILVER ON/CHARLEE DUM; Not Available Not Available Not [...] Not Available Not Available Not Available Fluvirin 0183-8086 45 mcg (15 mcg x 3)/0.5 mL [...] (BMI) Body weight Heart rate Oxygen saturation Body temperature Systolic And Diastolic Provider Name and Address Organization Details Last Updated DateTime 5 161.29 cm 38 kg/m2 47793.1 4 g 98 /min 98 % 97.9 [degF] 104/71 mm[Hg] Bob monsalve [facility] 5 10:23:03 Social History Question Answer Notes LastModified by Organizat ion Details LastModified Time Tobacco Smoking Status Former Smoker Nelida Olivares MA [facility] 10/31/2013 09:58:43 Do You Have An Advance Directive? Yes [facility] Information not available 01/16/2020 Is Blood Transfusion [...] Or With Others? Alone And [address] [facility] Information not available 04/14/2024 Do You Take [...] independently without assistance or assistive devices? YESASSIST laila kcbym[place]one Information not available 04/14/2024 Are you able to care for yourself independently? 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[employer] Information not available 08/25/2014 Do you or [...] Time Influenza, high-dose, trivalent, PF 5 completed Bob Reinoso MA [facility], [facility] 12/01/2024 10:45:22 Influenza, split virus, trivalent, PF 5 completed Not Available [facility] 03/06/2023 19:50:27 Pneumococcal conjugate PCV 13 5 completed Not Available [facility] 03/06/2023 19:50:27 Tdap 5 completed Not Available [facility] 03/06/2023 19:50:27 Influenza, split virus, trivalent, preservative 6 completed Not Available [facility] 03/06/2023 19:50:27 COVID-19, mRNA, LNP-S, PF, 30 mcg/0.3 mL dose 1 completed Not Available [facility] 03/06/2023 19:50:27 COVID-19, mRNA, LNP-S, PF, 30 mcg/0.3 mL dose 1 completed Not Available [facility] 03/06/2023 19:50:27 COVID-19, mRNA, LNP-S, PF, 30 mcg/0.3 mL dose 1 completed Not Available [facility] 03/06/2023 19:50:27 Influenza, split virus, quadrivalent, PF 0 completed Not Available [facility] 03/06/2023 19:50:27 Influenza, split virus, trivalent, preservative 1 completed Not Available [facility] 03/06/2023 19:50:27 zoster recombinant 2 completed Not Available [facility] 03/06/2023 19:50:27 COVID-19, mRNA, LNP-S, PF, 30 mcg/0.3 mL dose, ciarra-sucrose 2 completed Not Available [facility] 03/06/2023 19:50:27 zoster recombinant 1 completed Not Available [facility] 03/06/2023 19:50:27 Influenza, split virus, quadrivalent, PF 9 completed Not Available [facility] 03/06/2023 19:50:27 Influenza, split virus, quadrivalent, PF 7 completed Not Available [facility] 03/06/2023 19:50:27 Influenza, split virus, quadrivalent, PF 8 completed Not Available [facility] 03/06/2023 19:50:27 Influenza, MDCK, quadrivalent, PF 2 completed Not Available [facility] 03/06/2023 19:50:27 COVID-19, mRNA, LNP-S, PF, ciarra-sucrose, 30 mcg/0.3 mL 4 completed MEDINA [place] [facility] 04/14/2024 10:31:13 Influenza, high-dose, trivalent, PF 4 completed MEDINA [place], [facility] 04/14/2024 10:31:13 Influenza, split virus, trivalent, PF 4 completed Not Available [facility] 03/05/2019 02:21:58 pneumococcal polysaccharide PPV23 6 completed Not Available [facility] 03/06/2023 19:50:27 pneumococcal polysaccharide PPV23 9 completed Not Available [facility] 03/06/2023 19:50:27 Influenza, split virus, trivalent, preservative 6 completed Not Available [facility] 03/06/2023 19:50:27 Td (adult), 2 Lf tetanus toxoid, preservative free, adsorbed 7 completed Not Available [facility] 03/06/2023 19:50:27 Influenza, split virus, trivalent, preservative 7 completed Not Available [facility] 03/06/2023 19:50:27 Influenza, split virus, trivalent, preservative 8 completed Not Available [facility] 03/06/2023 19:50:27 Influenza, split virus, trivalent, preservative 9 completed Not Available [facility] 03/06/2023 19:50:27 Influenza, split virus, trivalent, preservative 0 completed Not Available [facility] 03/06/2023 19:50:27 Influenza, split virus, trivalent, preservative 2 completed Not Available [facility] 03/06/2023 19:50:27 Tdap 3 completed Not Available [facility] 03/06/2023 19:50:27 influenza, seasonal, intradermal, preservative free 3 completed Not Available [facility] 03/06/2023 19:50:27 Influenza, split virus, quadrivalent, PF 3 completed Meme miranda [facility] 12/08/2022 14:44:09 Past Encounters Encounter ID Performer Location Encounter Start Date Encounter Closed Date Diagnosis/Indication Diagnosis SNOMED-CT Code Diagnosis ICD10 Code Diagnosis IMO Codes Diagnosis Note [id number] Thaddeus Jackson MD Main Office [address] [facility] [place] [address] 12/01/2024 09:42:14 12/01/2024 11:08:32 Influenza vaccine needed 7442289198 106 Z23 65 YEARS AND OLDER Diabetic p eripheral neuropathy 774610073 E11.40 diet / ex control p bariatric [...] > 3 months Hypertensi ve renal disease 36530669 I12.9 bp elevated but likely d/t pain, cont med as dir, recheck next month 01/12/23: BP stable in office today 6.25 - bp stable, cont med as dir, pending check labs ac next visit 10.25 - bp low, fort. is not orthostati c - but given recent wt loss, rec decrease lis from 10mg to 5mg qd Chronic ki dney disease stage 2 151593543 N18.2 Spinal coy nosis of lumbar region 15048971 M48.061 stable, s/p multiple back surgeries - pt has tolerated anesthesia well in the past Has had 8 back surgeries. Last was [address] Luque. cont hep rec tyl 500mg 1-2 tabs up to 3x/day, reserve naproxen for prn 6.23 - ambulating better c [facility] 10.23 - worse pain lately, will get [facility] pain eval - to consider neural stimulator meanwhile, cont duloxetine as dir, cont gbn - has been on 900mg tid, but trial c prn m relaxer, cont alt ice/heat, cont salonpas - but rec change to o/n 11.23 - [facility] turned pt away, pending neurology referral in [facility] l c increasing cyclobenza monalisa to 10mg since not sleeping well - 5mg am, 5mg afternoon, 10mg qhs 3.24 - printed neuro order to call him in [place] 5.24 - advised by [place] neurosurge on to see local neurologis t = but no consult note to review - will attempt to getludivina stroud, will get pmr re-eval = [facility] will change to Dr [...] st - cont f/ucont f/u c PMR 10.25 - stable lately - pt requested refill m relaxercon t f/u c PMR - percocet infrequent ly Pain of ri ght shoulder joint [id number] 1974226 M25.511 [id number] s/p sx, cont sling/PT as dir, cont [...] ID Guarantor Name 12/01/2024 1 [place] [employer] Fara Crandall Parent [id number] Fara Crandall Parent 12/01/2024 2 [place] [id number] Fara Crandall Parent [id number] Fara Crandall Parent Notes Date Note Type Note Provider Name and Address Organization Details Recorded Time 12/01/2024 text/html here for f/u DMhas lost 7 lbs - walking, diet - less portions, mindful of food [email or web address] stable at 6.5in general feeling better - babysitting great niece 3x/wk Cora Lara PA-C [address] [address], [place], [address], [facility] 12/01/2024 12:39:06 OBGyn Episode No OBEpisode recorded.
--- OUTSIDE RECORDS SUMMARY | 2025-02-07 13:32 | XMS_ITS | Data Portability ---
Author Organization [facility], Main Office Address [address] [facility] [address] [place] [id number] Care Team Providers Care Sane Rn Name Role Phone JOEL DAO Airport Operations Specialist VALENTÍN MONTERO Psychiatrist KESHIA COOPER Sheet Metal Foreman CORA LARA Primary Care Provider CORWIN DAVISON Airport Operations Specialist [phone] RANDI CAMARENA Neurophysiologist [phone] JASON ONEAL Pain Management DANIEL ORTIZ Geriatric Medicine SHADI CARVALHO Neuropsychologist [phone] TRISTON PENA Police Captain Precinct Assessment No assessment recorded. Plan of Treatment Reminders Order Date Submit Date Provider Last Modified By Organization Details Last Modified Time Details Appointments [id number] 2025 08:45A M Cora Lara PA-C Not available Not available Not available Lab HbA1c (hemog lobin A1c), blood 2024 026 [email or web address] [facility] (Centralized Electronic Ordering - All Locations), Patient Can Go To The Location Of Their Choice, [id number] 12/01/2024 11:03:47 BMP, serum or plasma 2024 026 [email or web address] [facility] (Centralized Electronic Ordering - All Locations), Patient Can Go To The Location Of Their Choice, [id number] 12/01/2024 11:03:47 microa lbumin /creat inine, mass ratio, urine 2024 026 [email or web address] [facility] (Centralized Electronic Ordering - All Locations), Patient Can Go To The Location Of Their Choice, 12/01/2024 11:03:47 hemogl obin A1C, finger stick 2024 025 ANDREW In-Office Order, Internal Use Only DO Not Attach Compendium DO Not Attach Compendium, Do Not Delete/merge, [id number] 08/15/2024 13:17:20 HbA1c (hemog lobin A1c), blood [...] willie, total, serum 2024 025 ANDREW [facility], [address] [place], [place] [address], [place], [address], 02/25/2024 20:06:20 microa lbumin /creat inine, mass [...] ophtha lmolog y referr al 2024 025 [email or web address] Not available 12/01/2024 13:52:51 orthop edic surgeo n referr al 2024 025 ANDREW Govea MD, [address] [place], [address], 09/26/2024 10:51:47 nutrit ionist /dieti juan carlos referr al 2024 025 [email or web address] Not available 04/14/2024 15:53:54 podiat rist referr al 2024 025 laney Baca DPM, [address] [place], [address], 03/26/2024 09:25:27 Procedures None record ed. Surgeries None record ed. Imaging XR, chest, 2 view 2024 025 [email or web address], [address] [place], [address], 04/28/2024 10:45:37 Medication Orders lisino pril 5 mg tablet 2024 [facility] #74358, [address] [place], [place], [id number], 12/01/2024 11:03:55 cyclob enzapr ine 5 mg tablet 2024 025 [facility] #24102, [address] [place], [place], [id number], 12/01/2024 11:03:53 amoxic illin 875 mg-pot assium clavul anate 125 mg tablet 2024 [facility] #78172, [address] [place], [place], [id number], 08/15/2024 13:13:27 albute rol sulfat e HFA 90 mcg/ac tuatio n aeroso l inhale r 2023 024 [id number] [facility] #02392, [address] [place], [place], [id number], 11/26/2023 01:14:53 cyclob enzapr ine 5 mg tablet 2023 024 [facility] #61118, [address] [place], [place], [id number], 11/23/2023 11:22:01 pantop razole 40 mg tablet ,delay ed releas e 2023 024 [facility] #45940, [address] [place], [place], [id number], 11/23/2023 11:22:01 Patient Targets Encounter Date Encounter Id Patient Goals Patient Target Last Modified By Organization Details Last Modified Time 11/23/2023 [id number] Ongoing of Microalbumin/Cre atinine Ratio yearly Not [...] goal. 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 pmadden Not available 02/22/2024 11:14:57 04/14/2024 [id number] skilled nursing goal of Blood Pressure 140 / 90 Not available Not available Not available middle or intermediate school principal goal of Exercise level Not available Not available Not available middle or intermediate school principal goal of Tobacco Smoking Status Not available Not available Not available skilled nursing goal of Excess Body Weight Loss % [...] goal. pmadden Not available 04/14/2024 11:40:35 08/15/2024 [id number] Ongoing of Microalbumin/Cre atinine Ratio yearly Not [...] goal. pmadden Not available 08/16/2024 19:13:47 12/01/2024 [id number] Ongoing of Microalbumin/Cre atinine Ratio yearly Not [...] By Organization Details Last Modified Time 11/23/2023 [id number] Medications (OTC , herbal therapies, supplements) reviewed and reconciled with patient and or caregiver, including potential side effects, drug interactions, instructions, and the consequences of not taking medication. Reviewed potential barriers to medication adherence, such as side effects from medication or cost of medication. pmadden Not available 11/23/2023 11:21:58 02/22/2024 [id number] encouraged pt to check outstanding labs as directed pmadden Not available 02/22/2024 10:43:29 Medications (OTC , herbal therapies, supplements) reviewed and reconciled with patient and or caregiver, including potential side effects, drug interactions, instructions, and the consequences of not taking medication. Reviewed potential barriers to medication adherence, such as side effects from medication or cost of medication. pmadden Not available 02/22/2024 10:43:45 04/14/2024 [id number] Starting a Weight-Loss Plan: Care Instructions pmadden [...] medication. pmadden Not available 04/14/2024 11:15:58 08/15/2024 [id number] Medications (OTC , herbal therapies, supplements) reviewed and reconciled with patient and or caregiver, including potential side effects, drug interactions, instructions, and the consequences of not taking medication. Reviewed potential barriers to medication adherence, such as side effects from medication or cost of medication. pmadden Not available 08/15/2024 13:33:31 12/01/2024 [id number] Medications (OTC , herbal therapies, supplements) reviewed and reconciled with patient and or caregiver, including potential side effects, drug interactions, instructions, and the consequences of not taking medication. Reviewed potential barriers to medication adherence, such as side effects from medication or cost of medication. 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 METAB OLIC PANEL (14) BUN 11 mg/dL 8-27 normal Not Available [facility] ([facility]) [address] [facility] [place], [address], 02/25/2024 20:06:18 02/21/19 25 02/22/2024 COMP. METAB OLIC PANEL (14) creatinine 0.86 mg/dL 0.57-1 .00 normal Not Available [facility] ([facility]) [address] [facility] [place], [address], 02/25/2024 20:06:18 02/21/19 25 02/22/2024 COMP. METAB OLIC PANEL (14) eGFR 75 mL/mi n/1.7 3 >59 normal Not Available [facility] ([facility]) [address] [facility] [place], [address], 02/25/2024 20:06:18 02/21/19 25 02/22/2024 COMP. METAB OLIC PANEL (14) BUN/creatini ne ratio 13 12-28 normal Not Available [facility] ([facility]) [address] [facility] [place], [address], 02/25/2024 20:06:18 02/21/19 25 02/22/2024 COMP. METAB OLIC PANEL (14) sodium 138 mmol/ L 134-14 4 normal Not Available [facility] ([facility]) [address] [facility] [place], [address], 02/25/2024 20:06:18 02/21/19 25 02/22/2024 COMP. METAB OLIC PANEL (14) potassium 4.6 mmol/ L 3.5-5. 2 normal Not Available [facility] ([facility]) [address] [facility] [place], [address], 02/25/2024 20:06:18 02/21/19 25 02/22/2024 COMP. METAB OLIC PANEL (14) chloride 99 mmol/ L 96-106 normal Not Available [facility] ([facility]) [address] [place], [address], 02/25/2024 20:06:18 02/21/19 25 02/22/2024 COMP. METAB OLIC PANEL (14) carbon dioxide, total 24 mmol/ L 20-29 normal Not Available [facility] ([facility]) [address] [place], [address], 02/25/2024 20:06:18 02/21/19 25 02/22/2024 COMP. METAB OLIC PANEL (14) calcium 9.5 mg/dL 8.7-10 .3 normal Not Available [facility] ([facility]) [address] [place], [address], 02/25/2024 20:06:18 02/21/19 25 02/22/2024 COMP. METAB OLIC PANEL (14) protein, total 6.9 g/dL 6.0-8. 5 normal Not Available [facility] ([facility]) [address] [place], [address], 02/25/2024 20:06:18 02/21/19 25 02/22/2024 COMP. METAB OLIC PANEL (14) albumin 4.2 g/dL 3.9-4. 9 normal Not Available [facility] ([facility]) [address] [place], [address], 02/25/2024 20:06:18 02/21/19 25 02/22/2024 COMP. METAB OLIC PANEL (14) globulin, total 2.7 g/dL 1.5-4. 5 Not Available [facility] ([facility]) [address] [place], [address], 02/25/2024 20:06:18 02/21/19 25 02/22/2024 COMP. METAB OLIC PANEL (14) bilirubin, total 0.3 mg/dL 0.0-1. 2 normal Not Available [facility] ([facility]) [address] [facility], [place], [address], 02/25/2024 20:06:18 02/21/19 25 02/22/2024 COMP. METAB OLIC PANEL (14) alkaline phosphatase 68 IU/L 44-121 normal Not Available [facility] ([facility]) [address] [facility] [place], [address], 02/25/2024 20:06:18 02/21/19 25 02/22/2024 COMP. METAB OLIC PANEL (14) AST (SGOT) 16 IU/L 0-40 normal Not Available [facility] ([facility]) [address] [facility] [place], [address], 02/25/2024 20:06:18 02/21/19 25 02/22/2024 COMP. METAB OLIC PANEL (14) ALT (SGPT) 16 IU/L 0-32 normal Not Available [facility] ([facility]) [address] [facility], [place], [address], 02/25/2024 20:06:18 02/21/19 25 02/25/2024 ALBUM IN/CR EAT RATIO , RANDO M UR creatinine, urine 51.9 mg/dL not estab. normal Not Available [facility] ([facility]) [address] [facility], [place], [address], 02/25/2024 20:06:19 02/21/19 25 02/25/2024 ALBUM IN/CR EAT RATIO , RANDO M UR albumin, urine <3.0 ug/mL not estab. Not Available [facility] ([facility]) [address] [place], [address], 02/25/2024 20:06:19 02/21/19 25 02/25/2024 ALBUM IN/CR EAT RATIO , RANDO M UR alb/creat ratio <6 mg/g_ creat 0-29 Marilynn l: 0 - 29 Moder ately incre ased: 30 - 300 Sever felicitas incre ased: >300 Not Available [facility] ([facility]) [address] [facility], [place], [address], 02/25/2024 20:06:19 02/21/19 25 02/23/2024 VITAM IN [...] Laurence hunter [place]: The Natio nal [facility] Press . 2. Chong foster MF, Pau [place], Bharti off-F errar i OLIVEIRA, et al. Evalu ation , treat ment, and preve ntion of vitam in D defic iency : an Endoc rine Socie ty clini bettie pract ice guide line. JCEM. 2010; 96(7) :1911 -30. Not Available [facility] ([facility]) [address] [facility], [place], [address], 02/25/2024 20:06:20 08/16/19 25 08/15/2024 hemog lobin A1C, finge rstic k A1C 6.4 % 4-6 Not Available In-Office Order Internal Use Only DO Not Attach Compendium DO Not Attach Compendium, Do Not Delete/merge, [id number] 08/15/2024 13:02:05 11/25/1911/24/2024 LIPID PANEL cholesterol, total 151 mg/dL 100-19 9 normal Not Available [facility] ([facility]) [address] [facility], [place], [address], 11/25/2024 08:07:42 11/25/19 25 11/24/2024 LIPID PANEL triglyceride s 199 mg/dL 0-149 above high normal Not Available [facility] ([facility]) [address] [facility], [place], [address], 11/25/2024 08:07:42 11/25/19 25 11/24/2024 LIPID PANEL HDL cholesterol 53 mg/dL >39 normal Not Available [facility] ([facility]) [address] [facility], [place], [address], 11/25/2024 08:07:42 11/25/1911/24/2024 LIPID PANEL VLDL cholesterol bettie 33 mg/dL 5-40 Not Available [facility] ([facility]) [address] [facility], [place], [address], 11/25/2024 08:07:42 11/25/1911/24/2024 LIPID PANEL LDL chol calc ([facility]) 65 mg/dL 0-99 Not Available [facility] ([facility]) [address] [facility], [place], [address], 11/25/2024 08:07:42 11/25/1911/24/2024 LIPID PANEL LDL calc comment: TITLE CLERK Not Available [facility] ([facility]) [address] [facility], [place], [address], 11/25/2024 08:07:42 11/25/1911/25/2024 CK, TOTAL creatine kinase,total 28 U/L 32-182 below low normal Not Available [facility] ([facility]) [address] [place], [address], 11/25/2024 08:07:43 11/25/1911/24/2024 HEMOG LOBIN A1C hemoglobin A1C 6.5 % 4.8-5. 6 above high normal Predi abete s: 5.7 - 6.4 Diabe renetta: >6.4 Glyce tawny contr ol for adult s with diabe renetta: <7.0 Not Available [facility] ([facility]) [address] [facility], [place], [address], 11/25/2024 08:07:43 12/28/19 25 12/27/2024 elect arminda gram No observ ation record ed. [facility] [address] [facility], [place], [address], 12/27/2024 16:30:42 Result Notes None recorded. Problems Name Problem SNOMED Code Status Onset Date Resolution Date Notes Provider Name and Address Organization Details Recorded Time Asthma 396320176 Active Not Available [facility] 4 19:50:26 Chronic pain syndrome 918905196 Active Not Available [facility] 4 19:50:26 Depressi ve disorder 71429678 Completed 02/26/2015 Meme miranda [facility] 4 15:15:46 Type 2 diabetes mellitus without complica tion 818473516 Completed 05/01/2017 MEDINA Rouse [facility] 9 11:30:03 Gastroes ophageal reflux disease 586081229 Active Not Available [facility] 4 19:50:26 Essentia l hyperten kris 50106139 Completed 03/15/2022 Cora Lara PA-C [address] [facility] [address], [facility] [place], [address] , [facility] 3 10:04:39 Tobacco user 678153240 Completed 08/29/2015 MEDINA Rouse [facility] 6 09:59:57 History of clinical finding in subject 897109620 Completed 01/29/2016 MEDINA Rouse [facility] 6 10:42:37 Adult health examinat ion Completed 01/29/2016 MEDINA Rouse [facility] 6 10:42:26 Hyperlip idemia 04565889 Active Not Available [facility] 4 19:50:26 Spinal stenosis of lumbar region 76639909 Active Not Available [facility] 4 19:50:26 Obstruct kaye sleep apnea syndrome 58491835 Completed 06/18/2020 Coar Lara PA-C [address] [facility] [address], [place], [address] , [facility] 1 11:29:15 Localize d, primary osteoart hritis of the shoulder region 608723298 Completed 03/15/2022 Cora Lara PA-C [address] [facility] [address], [place], [address] , [facility] 3 10:06:07 Gastroin testinal obstruct ion 302863673 Completed 11/04/2016 Jason Irizarry MD [address] [facility] [address], [place], [address] , [facility] 7 08:33:12 Persiste nt insomnia 552379700 Active Not Available [facility] 4 19:50:26 Psoriasi s 4898195 Completed 03/15/2022 Cora Lara PA-C [address], [place], [address] , [facility] 3 10:06:55 Rheumato id arthriti s 52298598 Completed 11/04/2016 Jason Irizarry MD [address], [place], [address] , [facility] 7 08:33:58 Morbid obesity 143315288 Active Not Available [facility] 4 19:50:26 Conducti on disorder of the heart 30870884 Active Not Available [facility] 4 19:50:26 Vitamin D deficien cy 08420790 Active Not Available [facility] 4 19:50:26 Body mass index 40+ - severely obese 246521075 Completed 02/27/2015 Meme miranda, [facility] 3 10:07:59 Acute sinusiti s 42759839 Completed 01/29/2016 MEDINA Rouse, [facility] 6 10:42:01 Sinusiti s 00803273 Completed 01/29/2016 MEDINA Rouse, [facility] 6 10:42:32 Body mass index 30+ - obesity 277372189 Completed 03/15/2022 Cora Lara PA-C [address], [place], [address] , [facility] 3 10:03:53 Low back pain 835362486 Completed 03/13/2022 Cora Lara PA-C [address], [place], [address] , [facility] 3 14:00:57 Major depressi ve disorder 074639275 Completed 03/15/2022 Cora Lara PA-C [address], [place], [address] , [facility] 3 10:05:36 Blood in urine 41619340 Completed 07/02/2016 Maritza miranda [facility] 7 14:02:09 Diarrhea 87210272 Completed 01/29/2016 MEDINA Rouse, [facility] 6 10:42:42 Right lower quadrant pain 636898756 Completed 11/03/2016 MEDINA Rouse, [facility] 7 13:03:20 Pain of shoulder region 50193386 Completed 07/02/2016 Maritza miranda [facility] 7 14:02:03 Knee pain Completed 07/02/2016 Maritza miranda [facility] 7 14:02:00 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 60149730 Active Not Available [facility] 4 19:50:27 Type 2 diabetes mellitus without complica tion 710974110 Completed 10/12/2018 well controll ed after bariatri c surgery in 12/2013 MEDINA Rouse, [facility] 9 11:30:03 Electroc ardiogra m abnormal 443424672 Completed 200708/30/2013 RECORDED 10/01/19 08 8:29AM BY DELORIS MILAN MA, ANNOTATI ON/ADDEN DUM MEDINA Rouse, [facility] 6 10:51:32 Acute bronchit is 84406944 Completed 200708/30/2013 RECORDED 10/01/19 08 8:29AM BY DELORIS MILAN MA, ANNOTATI ON/ADDEN DUM MEDINA Rouse, [facility] 6 10:51:32 Knee pain Completed 200708/30/2013 RECORDED 10/01/19 08 8:30AM BY DELORIS MILAN MA, ANNOTATI ON/ADDEN DUM Maritza miranda, [facility] 7 14:02:00 Electroc ardiogra m abnormal 380258582 Completed 200709/26/2013 RECORDED 10/01/19 08 8:29AM BY DELORIS MILAN MA, ANNOTATI ON/ADDEN DUM MEDINA Rouse, [facility] 6 10:51:32 Acute bronchit is 18529181 Completed 200709/26/2013 RECORDED 10/01/19 08 8:29AM BY DELORIS MILAN MA, ANNOTATI ON/ADDEN DUM MEDINA Rouse, [facility] 6 10:51:32 Knee pain Completed 200709/26/2013 RECORDED 10/01/19 08 8:30AM BY DELORIS MILAN MA, MIGDALIA ON/ADDEN DUM Maritza miranda, [facility] 7 14:02:00 Dysphagi a 19291106 Completed 200708/30/2013 RESOLVED DATE: 01/20/20 08; RECORDED 01/20/20 08 4:23PM BY JORGE Rai NP, MIGDALIA ON/ADDEN DUM MEDINA Rouse, [facility] 6 10:51:32 Dysphagi a 63891905 Completed 200709/26/2013 RESOLVED DATE: 01/20/20 08; RECORDED 01/20/20 4:23PM BY JORGE Rai NP, MIGDALIA ON/ADDEN DUM MEDINA Rouse, [facility] 6 10:51:32 Cellulit is and abscess of face 695090347 Completed 200808/30/2013 RESOLVED DATE: 07/04/19 09; IMPRESSI ON: PT IS IMMUNE SUPPRESS ED WITH HUMIRA FOR RA, TREAT WITH LEVAQUIN ; RECORDED 07/04/19 09 9:11PM BY JORGE Rai NP, MIGDALIA ON/ADDEN DUM MEDINA Rouse, [facility] 6 10:51:32 Ulcerati ve rhinitis 47563637 Completed 200808/30/2013 DATE: 07/04/19 09; RECORDED 09/04/19 12 12:56PM BY DELORIS MILAN MA, MIGDALIA BARBER/ADDEN DUM MEDINA Rouse, [facility] 6 10:51:32 Otitis media 53943719 Completed 200808/30/2013 RESOLVED DATE: 07/04/19 09; RECORDED 07/04/19 09 9:11PM BY JORGE Rai NP, ANNOTATI ON/ADDEN DUM Deloris GeniaMEDINA Peterson, [facility] 6 10:51:32 Cellulit is and abscess of face 149541573 Completed 200809/26/2013 RESOLVED DATE: 07/04/19; IMPRESSI ON: PT IS IMMUNE SUPPRESS ED WITH HUMIRA FOR RA, TREAT WITH LEVAQUIN ; RECORDED 07/04/19 9:11PM BY JORGE Rai NP, MIGDALIA ON/ADDEN DUM Deloris MEDINA Levin, [facility] 6 10:51:32 Ulcerati ve rhinitis 01899077 Completed 200809/26/2013 DATE: 07/04/19; RECORDED 09/04/19 12:56PM BY DELORIS MILAN MA, ANNOTATI ON/ADDEN DUM Deloris MEDINA Levin, [facility] 6 10:51:32 Otitis media 35028035 Completed 200809/26/2013 RESOLVED DATE: 07/04/19; RECORDED 07/04/19 9:11PM BY JORGE Rai NP, MIGDALIA ON/ADDEN DUM Deloris Genia-MEDINA Greene, [facility] 6 10:51:32 Lyme disease 43410074 Completed 201008/30/2013 RECORDED 02/18/19 11 1:17PM BY JASON IRIZARRY MD, MIGDALIA ON/ADDEN DUM Deloris MEDINA Levin, [facility] 6 10:51:32 Lyme disease 50432128 Completed 201009/26/2013 RECORDED 02/18/19 11 1:17PM BY JASON IRIZARRY MD, ANNOTATI ON/ADDEN DUM Deloris MEDINA Levin, [facility] 6 10:51:32 Immunosu ppressio n 65586510 Completed 201108/30/2013 RECORDED 04/23/19 12 1:24PM BY MIGDALIA MEZA ON/ADDEN DUM MEDINA Rouse, [facility] 6 10:51:32 Immunosu ppressio n 86084286 Completed 201109/26/2013 RECORDED 04/23/19 12 1:24PM BY MIGDALIA MEZA ON/ADDEN DUM MEDINA Rouse, [facility] 6 10:51:32 Intrinsi c asthma 303670659 Completed 201108/30/2013 RECORDED 09/04/19 12 12:56PM BY DELORIS MILAN MA, ANNOTATI ON/ADDEN DUM MEDINA Rouse, [facility] 6 10:51:32 Screenin g for malignan t neoplasm of colon Completed 201108/30/2013 RECORDED 09/04/19 12 12:56PM BY DELORIS MILAN MA, ANNOTATI ON/ADDEN DUM MEDINA Rouse, [facility] 6 10:51:32 General symptom 208456282 Completed 201108/30/2013 STORY: SIGNIFIC ANT DECREASE IN EXERCISE TOLERANC E WITH TACHYCAR MARGARETH.; RECORDED 09/04/19 12 12:56PM BY DELORIS MILAN MA, ANNOTATI ON/ADDEN DUM MEDINA Rouse, [facility] 6 10:51:32 Exophtha lmos 70890321 Completed 201108/30/2013 RECORDED 09/04/19 12 12:56PM BY DELORIS MILAN MA, ANNOTATI ON/ADDEN DUM MEDINA Rouse, [facility] 6 10:51:32 Kidney stone 07166327 Completed 201108/30/2013 RECORDED 09/04/19 12 12:56PM BY DELORIS MILAN MA, ANNOTATI ON/ADDEN DUM MEDINA Rouse, [facility] 6 10:51:32 Bursitis 74584434 Completed 201108/30/2013 RECORDED 09/04/19 12 12:56PM BY DELORIS MILAN MA, ANNOTATI ON/ADDEN DUM MEDINA Rouse, [facility] 6 10:51:32 Acute respirat ory failure 39095106 Completed 201108/30/2013 RECORDED 09/04/19 12 12:56PM BY DELORIS MILAN MA, ANNOTATI ON/ADDEN DUM MEDINA Rouse, [facility] 6 10:51:32 Essentia l hyperten kris 84649345 Completed 201108/30/2013 RECORDED 09/04/19 12 12:56PM BY DELORIS MILAN MA, ANNOTATI ON/ADDEN DUM Cora Lara PA-C [address] [address], [place], [address] , [facility] 3 10:04:39 Intrinsi c asthma 901477689 Completed 201109/26/2013 RECORDED 09/04/19 12 12:56PM BY DELORIS MILAN MA, ANNOTATI ON/ADDEN DUM MEDINA Rouse, [facility] 6 10:51:32 Screenin g for malignan t neoplasm of colon Completed 201109/26/2013 RECORDED 09/04/19 12 12:56PM BY DELORIS MILAN MA, ANNOTATI ON/ADDEN DUM MEDINA Rouse, [facility] 6 10:51:32 General symptom 604669055 Completed 201109/26/2013 STORY: SIGNIFIC ANT DECREASE IN EXERCISE TOLERANC E WITH TACHYCAR MARGARETH.; RECORDED 09/04/19 12 12:56PM BY DELORIS MILAN MA, ANNOTATI ON/ADDEN DUM MEDINA Rouse, [facility] 6 10:51:32 Exophtha lmos [id number] Completed 201109/26/2013 RECORDED 09/04/19 12 12:56PM BY DELORIS MILAN MA, ANNOTSILVER ON/ADDEN DUM MEDINA Rouse, [facility] 6 10:51:32 Kidney stone [id number] Completed 201109/26/2013 RECORDED 09/04/19 12 12:56PM BY DELORIS MILAN MA, ANNOTSILVER ON/ADDEN DUM MEDINA Rouse, [facility] 6 10:51:32 Bursitis 29052837 Completed 201109/26/2013 RECORDED 09/04/19 12 12:56PM BY DELORIS MILAN MA, ANNOTSILVER ON/ADDEN DUM MEDINA Rouse, [facility] 6 10:51:32 Acute respirat ory failure 20076200 Completed 201109/26/2013 RECORDED 09/04/19 12 12:56PM BY DELORIS MILAN MA, ANNOTSILVER ON/ADDEN DUM MEDINA Rouse, [facility] 6 10:51:32 Adult health examinat ion Completed 201108/30/2013 RECORDED 12/16/19 12 9:06AM BY DELORIS MILAN MA, ANNOTSILVER ON/ADDEN DUM MEDINA Rouse, [facility] 6 10:42:26 Tobacco dependen ce syndrome 68351279 Completed 201108/30/2013 RECORDED 12/16/19 12 9:07AM BY DELORIS MILAN MA, ANNOTSILVER ON/ADDEN DUM Deloris Genia-MEDINA Greene, [facility] 6 10:51:32 Tobacco dependen ce syndrome 62345162 Completed 201109/26/2013 RECORDED 12/16/19 12 9:07AM BY DELORIS MILAN MA, ANNOTSILVER ON/ADDEN DUM Deloris MEDINA Levin, [facility] 6 10:51:32 Peptic ulcer 32809629 Completed 201208/30/2013 RECORDED 03/11/19 13 1:05AM BY JORGE Rai NP, MIGDALIA ON/ADDEN DUM Deloris Genia-MEDINA Greene, [facility] 6 10:51:32 Peptic ulcer 99851344 Completed 201209/26/2013 RECORDED 03/11/19 13 1:05AM BY JORGE Rai NP, ANNOTSILVER ON/ADDEN DUM Deloris Genia-MEDINA Greene, [facility] 6 10:51:32 Chronic pain syndrome 187145524 Completed 201208/30/2013 RECORDED 03/17/19 13 9:38AM BY DELORIS MILAN MA, ANNOTSILVER ON/ADDEN DUM Deloris MEDINA Levin, [facility] 6 10:51:32 Diarrhea 42443852 Completed 201208/30/2013 IMPRESSI ON: RESOLVIN G PER PT. HAD A FORMED STOOL. SHE DID NOT DO THE STOOL TESTING AND WILL HOLD OFF SINCE DOES NOT HAVE LIQUID STOOL.; RECORDED 03/17/19 13 9:35AM BY DELORIS MILAN MA, ANNOTSILVER ON/ADDEN DUM MEDINA Rouse, [facility] 6 10:42:42 Diarrhea 18021217 Completed 201209/26/2013 IMPRESSI ON: RESOLVIN G PER PT. HAD A FORMED STOOL. SHE DID NOT DO THE STOOL TESTING AND WILL HOLD OFF SINCE DOES NOT HAVE LIQUID STOOL.; RECORDED 03/17/19 13 9:35AM BY DELORIS MILAN MA, ANNOTATI ON/ADDEN DUM MEDINA Rouse, [facility] 6 10:42:42 Long-ter m drug therapy Completed 201208/30/2013 RECORDED 05/19/19 13 12:57PM BY DELORIS MILAN MA, ANNOTATI ON/ADDEN DUM MEDINA Rouse, [facility] 6 10:51:32 Renewal of prescrip tion Completed 201208/30/2013 RECORDED 05/19/19 13 12:57PM BY DELORIS MILAN MA, ANNOTATI ON/ADDEN DUM MEDINA Rouse, [facility] 6 10:51:32 Administ ration of diphther ia and tetanus vaccine Completed 201208/30/2013 RECORDED 05/19/19 13 12:57PM BY DELORIS MILAN MA, ANNOTATI ON/ADDEN DUM MEDINA Rouse, [facility] 6 10:51:32 Long-ter m drug therapy Completed 201209/26/2013 RECORDED 05/19/19 13 12:57PM BY DELORIS MILAN MA, ANNOTATI ON/ADDEN DUM MEDINA Rouse, [facility] 6 10:51:32 Renewal of prescrip tion Completed 201209/26/2013 RECORDED 05/19/19 13 12:57PM BY DELORIS MILAN MA, ANNOTATI ON/ADDEN DUM MEDINA Rouse, [facility] 6 10:51:32 Administ ration of diphther ia and tetanus vaccine Completed 201209/26/2013 RECORDED 05/19/19 13 12:57PM BY DELORIS MILAN MA, ANNOTATI ON/ADDEN DUM MEDINA Rouse, [facility] 6 10:51:32 Acute asthma 917654586 Completed 201208/30/2013 RECORDED 06/25/19 13 2:34PM BY DELORIS MILAN MA, ANNOTATI ON/ADDEN DUM MEDINA Rouse, [facility] 6 10:51:32 Acute sinusiti s 19218554 Completed 201208/30/2013 RECORDED 06/25/19 13 2:34PM BY DELORIS MILAN MA, ANNOTATI ON/ADDEN DUM MEDINA Rouse, [facility] 6 10:42:01 Cough 65602447 Completed 201208/30/2013 RECORDED 06/25/19 13 2:34PM BY DELORIS MILAN MA, ANNOTATI ON/ADDEN DUM MEDINA Rouse, [facility] 6 10:51:32 Acute asthma 547916821 Completed 201209/26/2013 RECORDED 06/25/19 13 2:34PM BY DELORIS MILAN MA, ANNOTATI ON/ADDEN DUM MEDINA Rouse, [facility] 6 10:51:32 Acute sinusiti s 66265356 Completed 201209/26/2013 RECORDED 06/25/19 13 2:34PM BY DELORIS MILAN MA, ANNOTATI ON/ADDEN DUM Deloris Genia-Ma MEDINA chauhan, [facility] 6 10:42:01 Cough 97383523 Completed 201209/26/2013 RECORDED 06/25/19 13 2:34PM BY DELORIS MILAN MA, ANNOTATI ON/ADDEN DUM Deloris Genia-MEDINA Greene, [facility] 6 10:51:32 Screenin g for malignan t neoplasm of breast Completed 201208/30/2013 RECORDED 09/21/19 13 12:45PM BY ARLIN LIGHT MA, ANNOTATI ON/ADDEN DUM Deloris Genia-MEDINA Greene, [facility] 6 10:51:32 Edema 677620412 Completed 201208/30/2013 RECORDED 09/21/19 13 12:45PM BY ARLIN LIGHT MA, ANNOTATI ON/ADDEN DUM Deloris Genia-MEDINA Greene, [facility] 6 10:51:32 Leukocyt osis 901303563 Completed 201208/30/2013 RECORDED 09/21/19 13 12:45PM BY ARLIN LIGHT MA, ANNOTATI ON/ADDEN DUM Deloris Genia-MEDINA Greene, [facility] 6 10:51:32 Urine finding [id number] Completed 201208/30/2013 IMPRESSI ON: ADD CULTURE; RECORDED 09/21/19 13 12:45PM BY ARLIN LIGHT MA, ANNOTSILVER ON/ADDEN DUM Deloris Genia-MEDINA Greene, [facility] 6 10:51:32 Dyspnea 221396814 Completed 201208/30/2013 RECORDED 09/21/19 13 12:45PM BY ARLIN LIGHT MA, ANNOTSILVRE ON/ADDEN DUM Deloris Genia-MEDINA Greene, [facility] 6 10:51:32 Disorder of bursa of shoulder region 63436056 Completed 201208/30/2013 STORY: SHAYAN Tello HAS BEEN FOLLOWED BY DR. RAMACHANDRAN FOR RHEUMATO LOGY. UNDERLYI NG DIAGNOSI S OF RA AND PSORIATI C ARTHRITI S. HAS BEEN ON HUMIRA; RECORDED 09/21/19 13 12:45PM BY ARLIN LIGHT MA, ANNOTATI ON/ADDEN DUM Deloris Genia-MEDINA Greene, [facility] 6 10:51:32 Full thicknes s rotator cuff tear 524957284 Completed 201208/30/2013 RECORDED 09/21/19 13 12:45PM BY ARLIN LIGHT MA, ANNOTATI ON/ADDEN DUM Deloris MEDINA Levin, [facility] 6 10:51:32 Screenin g for malignan t neoplasm of breast Completed 201209/26/2013 RECORDED 09/21/19 13 12:45PM BY ARLIN LIGHT MA, ANNOTATI ON/ADDEN DUM Deloris MEDINA Levin, [facility] 6 10:51:32 Edema 770449029 Completed 201209/26/2013 RECORDED 09/21/19 13 12:45PM BY ARLIN LIGHT MA ANNOTSILVER ON/ADDEN DUM Deloris MEDINA Levin, [facility] 6 10:51:32 Leukocyt osis 059109462 Completed 201209/26/2013 RECORDED 09/21/19 13 12:45PM BY ARLIN LIGHT MA, ANNOTATI ON/ADDEN DUM Deloris MEDINA Levin, [facility] 6 10:51:32 Urine finding 464925413 Completed 201209/26/2013 IMPRESSI ON: ADD CULTURE; RECORDED 09/21/19 13 12:45PM BY ARLIN LIGHT MA ANNOTATI ON/ADDEN MEDINA Engel [facility] 6 10:51:32 Dyspnea 206523474 Completed 201209/26/2013 RECORDED 09/21/19 13 12:45PM BY ARLIN LIGHT MA, MIGDALIA ON/ADDEN DUM MEDINA Rouse [facility] 6 10:51:32 Disorder of bursa of shoulder region 87606416 Completed 201209/26/2013 STORY: SHAYAN LRa HAS BEEN FOLLOWED BY DR. RAMACHANDRAN FOR RHEUMATO LOGY. UNDERLYI NG DIAGNOSI S OF RA AND PSORIATI C ARTHRITI S. HAS BEEN ON HUMIRA; RECORDED 09/21/19 13 12:45PM BY ARLIN LIGHT MA, MIGDALIA ON/ADDEN DUM [facility] 6 10:51:32 Full thicknes s rotator cuff tear 155864362 Completed 201209/26/2013 RECORDED 09/21/19 13 12:45PM BY ARLIN LIGHT MA, MIGDALIA ON/ADDEN DUM MEDINA Rouse, [facility] 6 10:51:32 Influenz a vaccine needed 81934643267 06 Completed 201208/30/2013 RECORDED 10/23/19 13 4:09PM BY AUDIE OLIVARES, OFFICE VISIT MEDINA Rouse [facility] 6 10:51:32 Influenz a vaccine needed 97897116160 06 Completed 201209/26/2013 RECORDED 10/23/19 13 4:09PM BY AUDIE OLIVARES, OFFICE VISIT MEDINA Rouse, [facility] 6 10:51:32 Malaise and fatigue 964289224 Completed 201208/30/2013 RECORDED 12/12/19 13 8:53AM BY DELORIS MILAN MA, ANNOTATI ON/ADDEN DUM MEDINA Rouse, [facility] 6 10:51:32 Malaise and fatigue 930810699 Completed 201209/26/2013 RECORDED 12/12/19 13 8:53AM BY DELORIS MILAN MA, ANNOTATI ON/ MEDINA Rouse, [facility] 6 10:51:32 Pre-surg asher evaluati on [...] 13 4:03PM BY DELORIS MILAN MA, ANNOTATI ON/ MEDINA Rouse, [facility] 6 10:51:32 Pre-surg asher evaluati on [...] 13 4:03PM BY DELORIS MILAN MA, ANNOTATI ON/ MEDINA Rouse, [facility] 6 10:51:32 Follow-u p encounte r Completed 201308/30/2013 RECORDED 05/12/19 14 2:21PM BY ANAMARIA RIVERA MA, ANNOTATI ON/ADDEN DUM MEDINA Rouse, [facility] 6 10:51:32 Laborato ry procedur e performe d [id number] Completed 201308/30/2013 RECORDED 05/12/19 14 2:21PM BY ANAMARIA RIVERA MA, ANNOTSILVER ON/ADDEN DUM MEDINA Rouse, [facility] 6 10:51:32 Follow-u p encounte r Completed 201309/26/2013 RECORDED 05/12/19 14 2:21PM BY ANAMARIA RIVERA MA, ANNOTATI ON/ADDEN DUM MEDINA Rouse, [facility] 6 10:51:32 Laborato ry procedur e performe d 356179683 Completed 201309/26/2013 RECORDED 05/12/19 14 2:21PM BY ANAMARIA RIVERA MA, ANNOTATI ON/ADDEN DUM MEDINA Rouse, [facility] 6 10:51:32 Ex-smoke r 5370752 Active 2015 Not Available [facility] 4 19:50:27 Diabetic peripher al neuropat hy 173635372 Active 2016 Not Available [facility] 4 19:50:26 Vitamin B12 deficien cy (non anemic) 11674081 Active 2017 Not Available [facility] 4 19:50:26 Muscle pain 13821289 Active 2017 Not Available [facility] 4 19:50:27 Type 2 diabetes mellitus 34865158 Completed 201805/24/2018 MEDINA Rouse, [facility] 9 14:25:08 Hypergly cemia 27905693 Completed 201803/15/2022 Cora Lara PA-C [address], [place], [address] , [facility] 3 10:04:55 Obesity 527962028 Completed 201806/18/2020 Fabi Bates RN [facility], [facility] 1 15:35:04 Obstruct kaye sleep apnea of adult 27051120795 03 Completed 202003/13/2022 Dx: G47.33 (mild) Cora Lara PA-C [address], [place], [address] , [facility] 3 13:58:48 Obstruct kaye sleep apnea syndrome 38608651 Active 2020 Not Available [facility] 4 19:50:27 Severe dry skin 504500485 Active 2020 Not Available [facility] 4 19:50:27 Psoriati c arthriti s 393509206 Active 2021 Not Available [facility] 4 19:50:26 Pain of right shoulder joint 63669768461 515115 Active 2021 Cora Lara PA-C [address], [place], [address] , [facility] 5 19:13:39 COVID-19 058092391 Active 2022 Not Available [facility] 4 19:50:27 Pneumoni tis 028008965 Completed 202203/15/2022 Cora Lara PA-C [address], [place], [address] , [facility] 3 10:06:45 Hyperten sive renal disease 56934900 Active 2022 Not Available [facility] 4 19:50:26 Chronic kidney disease stage 2 949970279 Active 2022 Not Available [facility] 4 19:50:26 Iron deficien cy anemia 91186832 Active 2022 Not Available [facility] 4 19:50:27 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 49361789069 46990 Active 2023 Cora Lara PA-C [address] [facility] [address], [place], [address] , [facility] 4 10:51:38 Mild memory disturba nme 618018217 Completed 202311/23/2023 Cora Lara PA-C [address] [facility] [address], [place], [address] , [facility] 4 11:03:27 Mild major depressi on, single episode 84525765 Active 2023 Meme miranda, [facility] 4 15:15:35 Mild neurocog nitive disorder 790529555 Active 2023 Cora Lara PA-C [address] [facility] [address], [place], [address] , [facility] 4 14:50:45 Notes:Some problems listed i n Documents: #[id number], #[id number], #[id number] could not be added to this patient's chart. Please review these documents and add these problems to the patient's chart manually as needed. Problem Notes None recorded. Procedures Surgical History Date Name Laterality Status Provider Name and Address Organization Details Recorded Time 2023 injection of sacroiliac joint completed Sonia Andrea [facility] 4 10:41:48 2023 diabetic retinopathy screening completed Sonia Andrea [facility] 4 12:36:50 2022 Chronic Pain Assessment completed Kesha Strauss MA [facility] 3 10:46:00 2022 Colonoscopy completed Sonia Andrea [facility] 3 11:35:01 2022 esophagogastroduodenoscopy completed Issa Andrea [facility] 3 11:35:07 2020 Diabetic Foot Exam (Monofilament) completed Cora Lara PA-C [address], [place], [address], [facility] 1 21:06:41 2020 polysomnography completed Deloris matias MA [facility] 1 15:44:34 2020 arthroplasty of left shoulder completed Deloris matias MA [facility] 1 15:35:54 2019 Orthopedic Surgery completed Deloris matias MA [facility] 1 15:36:33 2018 injection completed Martita Cooley [facility] 9 10:18:41 2018 Diabetic Foot Exam (Monofilament) completed Deloris matias MA [facility] 9 14:23:33 2018 release of trigger thumb completed Deloris matias MA [facility] 9 14:36:23 2017 Diabetic Foot Exam (Monofilament) completed Deloris matias MA [facility] 8 10:31:14 2017 Glaucoma surgery completed Jason Irizarry MD [address], [place], [address], [facility] 8 11:14:40 2016 Carpal tunnel surgery completed Deloris matias MA [facility] 8 11:06:27 2016 Nerve surgery completed Jason Irizarry MD [address], [place], [address], [facility] 8 11:46:25 2016 Mini-Cog Test completed Deloris matias MA [facility] 7 13:00:13 2016 Chronic Pain Assessment completed Deloris matias MA [facility] 7 12:59:42 2016 Most Recent Mammogram completed Virginia Honeycutt [facility] Alicia [facility] 9 10:15:24 2016 Other completed Areli Cruz [facility] 7 14:27:22 2016 decompression of lumbar spine completed Deloris matias MA [facility] 1 15:51:46 2013 Lap sleeve gastrectomy completed Maritza Barragan MA [facility] 4 13:26:44 2012 Date of Last Colonoscopy completed Maritza Barragan [facility] 5 09:28:05 2008 Mammogram screening completed Deloris matias MA [facility] 8 11:10:32 Total hysterectomy completed Deloris matias MA [facility] 7 14:44:54 Back Surgery completed Deloris matias MA [facility] 8 11:10:06 Cholecystectomy completed RACHELL Chester [address] [facility] [address], [place], [address], [facility] 4 10:19:07 Hernia Repair completed RACHELL Chester [address], [place], [address], [facility] 4 10:19:07 Imaging Results None recorded. Procedure Notes None recorded. Medical Equipment None Reported. Allergies Allergen ID Allergen Name Allergen Category Reaction Reaction Severity Criticality Documentation Date Start Date Code Code System Note Provider Name and Address Organization Details Recorded Time 36721 adhesive environme nt,medica tion rash Not available Not available 03/14/2016 MEDINA Bowers, [facility] 7 14:43:07 6387 Cleocin medicatio n hives itching Not available Not available Not available 08/30/20132013 2 RxNorm [facility] 7 14:42:54 6388 codeine medicatio n Not available Not available Not available 08/30/20132012 2670 RxNorm NAUSE A Not Available [facility] 4 19:50:25 6389 Decadron medicatio n hives itching Not available Not available Not available 08/30/20132013 77199 2 RxNorm MEDINA Bowers, [facility] 7 14:42:50 Medications Name Sig Start [...] at bedtime for 30 days. 11/09 completed .24 - not refilled , ? why Not [...] 11 10:15AM BY TARYN SMITH I, JUDYATI ON/;DR. RAMACHANDRAN Not Available Not Available Not Available [...] 08 9:09PM BY JORGE Rai NP, JUDYATI ON/; Not Available Not Available Not Available tramadol [...] 13 9:45AM BY DELORIS MILAN MA, OFFICE VISIT; LMONARY PRESCRIB ES Not Available Not Available [...] RECORDED 10/03/19 11 10:15AM BY MIGDALIA FREEMAN ON/ DUM; Not Available Not Available Not [...] DREW ON/ADDEN DUM;THIS ORDER DISCONTI NUED PER [facility] N. Not Available Not Available Not [...] completed RECORDED 01/21/20 11 1:31PM BY TAWANDA BHTAIA MA, OFFICE VISIT;DR Ra CARDONA Not Available [...] RECORDED 08/13/19 11 3:00PM BY MIGDALIA DREW ON/CHARLEE DUM; Not Available [...] 10:15AM BY JASON IRIZARRY MD, MEDICATI ON AUTO-BRENDNO CTIVATIO N; Not Available Not Available Not [...] RECORDED 11/30/19 07 1:50PM BY JORGE Rai, TITLE CLERK, MIGDALIA ON/CHARLEE DUM; Not Available Not Available Not [...] Not Available Not Available Not Available Fluvirin 2771-3033 45 mcg (15 mcg x 3)/0.5 mL [...] DateTime 02/22/2024 126/72 mm[Hg] Cora Lara PA-C [address], [address], [facility] 02/22/2024 11:13:25 Date Recorded Body height Heart rate Oxygen saturation Body temperature Body mass index (BMI) Body weight Systolic And Diastolic Provider Name and Address Organization Details Last Updated DateTime 5 161.29 cm 102 /min 100 % 97.2 [degF] 41.1 kg/m2 285336. 8 g 148/89 mm[Hg] Kylah Dean MA [facility] 10:19:00 Date Recorded Body height Body mass index (BMI) Body weight Heart rate Oxygen saturation Body temperature Systolic And Diastolic Provider Name and Address Organization Details Last Updated DateTime 5 161.29 cm 41.3 kg/m2 190186. 39 g 104 /min 97 % 97.6 [degF] 128/83 mm[Hg] Kesha Strauss [facility] 5 10:36:59 Date Recorded Body height Body mass index (BMI) Body weight Heart rate Oxygen saturation Body temperature Systolic And Diastolic Provider Name and Address Organization Details Last Updated DateTime 5 161.29 cm 39.3 kg/m2 648691. 08 g 102 /min 96 % 97.8 [degF] 122/74 mm[Hg] Anaya Omer LPN [facility] 5 13:11:20 Date Recorded Systolic And Diastolic Provider Name and Address Organization Details Last Updated DateTime 11/23/2023 126/76 mm[Hg] Cora Lara PA-C [address] [address], [place], [address], [facility] 11/23/2023 11:18:46 Date Recorded Body height Body mass index (BMI) Body weight Heart rate Oxygen saturation Body temperature Systolic And Diastolic Provider Name and Address Organization Details Last Updated DateTime 4 161.29 cm 41.1 kg/m2 232885. 8 g 105 /min 99 % 97.3 [degF] 145/91 mm[Hg] Kylah Dean MA [facility] 4 10:18:43 Date Recorded Body height Body mass index (BMI) Body weight Heart rate Oxygen saturation Body temperature Systolic And Diastolic Provider Name and Address Organization Details Last Updated DateTime 5 161.29 cm 38 kg/m2 47223.1 4 g 98 /min 98 % 97.9 [degF] 104/71 mm[Hg] Bob monsalve MA [facility] 5 10:23:03 Social History Question Answer Notes LastModified by Organizat ion Details LastModified Time Tobacco Smoking Status Former Smoker MEDINA Etienne, [facility] 10/31/2013 09:58:43 Do You Have An [...] Or With Others? 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 Never used electronic cigarettes Information not available 11/17/2018 What is your exercise level? Occasional Limited because of back surgery ([place]) and shoulder problems Information not available 01/16/2020 [...] high-dose, trivalent, PF 5 completed MEDINA Zarate, [facility] 12/01/2024 10:45:22 Influenza, split virus, trivalent, PF 5 completed Not Available [facility] 03/06/2023 19:50:27 Pneumococcal conjugate PCV 13 5 completed Not Available [facility] 03/06/2023 19:50:27 Tdap 5 completed Not Available [facility] 03/06/2023 19:50:27 Influenza, split virus, trivalent, preservative 6 completed Not Available [facility] 03/06/2023 19:50:27 COVID-19, mRNA, LNP-S, PF, 30 mcg/0.3 mL dose 1 completed Not Available [facility] 03/06/2023 19:50:27 COVID-19, mRNA, LNP-S, PF, 30 mcg/0.3 mL dose 1 completed Not Available [facility] 03/06/2023 19:50:27 COVID-19, mRNA, LNP-S, PF, 30 mcg/0.3 mL dose 1 completed Not Available [facility] 03/06/2023 19:50:27 Influenza, split virus, quadrivalent, PF 0 completed Not Available [facility] 03/06/2023 19:50:27 Influenza, split virus, trivalent, preservative 1 completed Not Available [facility] 03/06/2023 19:50:27 zoster recombinant 2 completed Not Available [facility] 03/06/2023 19:50:27 COVID-19, mRNA, LNP-S, PF, 30 mcg/0.3 mL dose, ciarra-sucrose 2 completed Not Available [facility] 03/06/2023 19:50:27 zoster recombinant 1 completed Not Available [facility] 03/06/2023 19:50:27 Influenza, split virus, quadrivalent, PF 9 completed Not Available [facility] 03/06/2023 19:50:27 Influenza, split virus, quadrivalent, PF 7 completed Not Available [facility] 03/06/2023 19:50:27 Influenza, split virus, quadrivalent, PF 8 completed Not Available [facility] 03/06/2023 19:50:27 Influenza, MDCK, quadrivalent, PF 2 completed Not Available [facility] 03/06/2023 19:50:27 COVID-19, mRNA, LNP-S, PF, ciarra-sucrose, 30 mcg/0.3 mL 4 completed MEDINA Eason [facility] 04/14/2024 10:31:13 Influenza, high-dose, trivalent, PF 4 completed MEDINA Eason [facility] 04/14/2024 10:31:13 Influenza, split virus, trivalent, PF 4 completed Not Available [facility] 03/05/2019 02:21:58 pneumococcal polysaccharide PPV23 6 completed Not Available [facility] 03/06/2023 19:50:27 pneumococcal polysaccharide PPV23 9 completed Not Available [facility] 03/06/2023 19:50:27 Influenza, split virus, trivalent, preservative [...] 19:50:27 Tdap 3 completed Not Available [facility] 03/06/2023 19:50:27 influenza, seasonal, intradermal, preservative free 3 completed Not Available [facility] 03/06/2023 19:50:27 Influenza, split virus, quadrivalent, PF 3 completed Meme miranda [facility] 12/08/2022 14:44:09 Past Encounters Encounter ID Performer Location Encounter Start Date Encounter Closed Date Diagnosis/Indication Diagnosis SNOMED-CT Code Diagnosis ICD10 Code Diagnosis IMO Codes Diagnosis Note [id number] autoEComm erce [address] [facility] [address] [facility] [place] [address] 03/13/2006 00:00:00 [id number] autoEComm erce [address] [facility] [place] [address] 03/03/2006 00:00:00 [id number] autoEComm erce [address] [place] [address] 01/30/2006 00:00:00 [id number] autoEComm erce [address] [facility] [place] [address] 12/10/2005 00:00:00 [id number] autoEComm erce [address] [place] [address] 05/12/2006 00:00:00 [id number] autoEComm erce [address] [facility] [address] [place] [address] 07/07/2006 00:00:00 [id number] autoEComm erce [address] [facility] [place] [address] 08/07/2006 00:00:00 [id number] autoEComm erce [address] [facility] [place] [address] 10/09/2006 00:00:00 [id number] autoEComm erce [address] [facility] [place] [address] 11/27/2006 00:00:00 [id number] autoEComm erce [address] [facility] [place] [address] 12/10/2006 00:00:00 [id number] autoEComm erce [address] [facility] [place] [address] 01/12/2007 00:00:00 [id number] [employer] [address] [facility] [place] [address] 01/22/2007 00:00:00 [id number] [employer]ce [address] [facility] [place] [address] 03/25/2007 00:00:00 [id number] [employer]ce [address] [facility] [place] [address] 05/04/2007 00:00:00 [id number] [employer] erce [address] [facility] [place] [address] 08/05/2007 00:00:00 [id number] [employer]ce [address] [facility] [place] [address] 08/18/2007 00:00:00 [id number] [employer] erce [address] [facility] [place] [address] 09/02/2007 00:00:00 [id number] [employer] erce [address] [facility] [place] [address] 10/01/2007 00:00:00 [id number] [employer]ce [address] [facility] [place] [address] 12/11/2007 00:00:00 [id number] [employer] erce [address] [facility] [place] [address] 01/03/2008 00:00:00 [id number] [employer]ce [address] [facility] [place] [address] 01/20/2008 00:00:00 [id number] [employer] erce [address] [facility] [place] [address] 04/06/2008 00:00:00 [id number] auto[employer] erce [address] [facility] [place] [address] 04/13/2008 00:00:00 [id number] [employer] erce [address] [facility] [place] [address] 07/03/2008 00:00:00 [id number] auto[employer] erce [address] [facility] [place] [address] 10/09/2008 00:00:00 [id number] autoEComm erce [address] [facility] [place] [address] 12/21/2008 00:00:00 [id number] auto[employer]Comm erce [address] [facility] [place] [address] 01/26/2009 00:00:00 [id number] [address] [address] [place] [address] 05/09/2009 00:00:00 [id number] [address] [address] [place] [address] 08/10/2009 00:00:00 [id number] [address] erce [address] [place] [address] 09/14/2009 00:00:00 [id number] auto[employer] erce [address] [facility] [place] [address] 11/12/2009 00:00:00 [id number] autoEComm erce [address] [facility] [place] [address] 02/18/2010 00:00:00 [id number] [employer] erce [address] [facility] [place] [address] 07/10/2010 00:00:00 [id number] autoEComm erce [address] [facility] [place] [address] 10/02/2010 00:00:00 [id number] autoEComm erce [address] [facility] [place] [address] 01/20/2011 00:00:00 [id number] autoEComm erce [address] [facility] [place] [address] 05/26/2011 00:00:00 [id number] autoEComm erce [address] [facility] [place] [address] 09/04/2011 00:00:00 [id number] autoEComm erce [address] [facility] [place] [address] 10/14/2011 00:00:00 [id number] autoEComm erce [address] [facility] [place] [address] 12/16/2011 00:00:00 [id number] autoEComm erce [address] [facility] [place] [address] 01/19/2012 00:00:00 [id number] auto[employer]Comm erce [address] [facility] [place] [address] 03/17/2012 00:00:00 [id number] autoEComm erce [address] [facility] [address] [place] [address] 05/18/2012 00:00:00 [id number] autoEComm erce [address] [facility] [place] [address] 06/24/2012 00:00:00 [id number] autoEComm erce [address] [facility] [place] [address] 08/17/2012 00:00:00 [id number] autoEComm erce [address] [facility] [place] [address] 09/20/2012 00:00:00 [id number] autoEComm erce [address] [facility] [place] [address] 10/22/2012 00:00:00 [id number] autoEComm erce [address] [facility] [place] [address] 12/11/2012 00:00:00 [id number] autoEComm erce [address] [facility] [place] [address] 12/31/2012 00:00:00 [id number] autoEComm erce [address] [facility] [place] [address] 05/11/2013 00:00:00 [id number] autoEComm erce [address] [facility] [place] [address] 08/12/2013 00:00:00 [id number] RACHELL Chester Main Office [address] [facility] [address] [place] [address] 10/31/2013 09:30:33 10/31/2013 10:30:03 Pre-surgery evaluation 810264696 Needs infl uenza immunization 076998222 Morbid obesity 168973661 C ontinue bariatric diet and classes Type 2 margareth betes mellitus without complication 167106332 Continue current meds Essential hypertension 89635591 Continue current meds Hyperlipidemia 68640070 Co ntinue current meds Gastroesop hageal reflux disease 024821022 Continue current meds [id number] Jason Irizarry MD Main Office [address] [place] [address] 11/09/2013 10:55:48 11/09/2013 11:43:49 Type 2 diabetes mellitus without complication 488120052 Body mass index 40+ - severely obese 119348173 [id number] RACHELL Griffiths Main Office [address] [address] [place] [address] 01/20/2014 13:04:43 01/20/2014 13:55:09 Type 2 diabetes mellitus without complication 367677696 doing well post gastric sleeve. she has f/u in 4 months here Body mass index 40+ - severely obese 904238876 she just had gastric surgery to address this [id number] Austin coronado MD Main Office [address] [address] [place] [address] 02/28/2014 13:59:05 02/28/2014 14:52:32 Acute sinusitis 42496450 [id number] Jason Irizarry MD Main Office [address] [address] [place] [address] 05/08/2014 09:23:47 05/08/2014 10:33:20 Adult health examination 181562452 Essential hypertension 32003120 Hyperlipidemia 62005644 Obstructiv e sleep apnea syndrome 10141460 Type 2 margareth betes mellitus without complication 753201850 Body mass index 30+ - obesity 559425080 s/p bariatric surgery Low back pain 564741285 Major depr essive disorder 071838440 Followed by Dr. Geno Cardona [id number] Jason Irizarry MD Main Office [address] [address] [place] [address] 06/12/2014 14:01:32 06/12/2014 15:50:43 Low back pain 400729617 Has had 6 back surgeries. Last was [address] Luque. [id number] Jason Irizarry MD Main Office [address] [address] [place] [address] 08/25/2014 10:09:07 08/25/2014 11:20:31 Type 2 diabetes mellitus without complication 860288741 Essential hypertension 37974585 Low back pain 758615089 Oliveira s had 6 back surgeries. Last was [address] Luque. Obstructiv e sleep apnea syndrome 54600613 [id number] Jason Irizarry MD Main Office [address] [address] [place] [address] 02/27/2015 10:20:53 02/27/2015 11:13:10 Type 2 diabetes mellitus without complication 279395596 E11.9 Essential hypertension 89985150 I10 Major depr essive disorder 834891083 F32.[address] Geno Cardona Screening for malignant neoplasm of breast 908545563 Z12.39 Body mass index 30+ - obesity 019040663 Z68.31 E66.9 s/p bariatric surgery. Continued follow up with Dr. Terrell. Blood in urine 78458696 R31.9 Low back pain 134230416 M54.5 Has had 6 back surgeries. Last was [address] Luque. [id number] Cora Lara PA-C Main Office [address] [address] [place] [address] 06/28/2015 13:53:13 06/28/2015 14:50:27 Diarrhea 36598902 R19.7 Right lowe r quadrant pain 874508335 R10.31 mild-mod pain c palp, no c/o pain at baseline -- may need GI eval if sxs worse [id number] Jason Irizarry MD Main Office [address] [address] [place] [address] 08/29/2015 09:34:29 08/29/2015 10:56:41 Adult health examination 688988713 Z00.00 Type 2 margareth betes mellitus without complication 189725438 E11.9 Essential hypertension 50826233 I10 Major depr essive disorder 176099952 F32.9 Screening for malignant neoplasm of breast 758024072 Z12.39 Low back pain 969370092 M54.5 Has had 6 back surgeries. Last was [address] Luque. Pain of sh oulder region 84969877 M25.512 Knee pain 09817580 M25.5 61 [id number] Jason Irizarry MD Main Office [address] [address] [place] [address] 01/29/2016 10:36:51 01/29/2016 11:20:06 Lumbar radiculopathy 395197521 M54.16 Left L3 distributi on. New symptoms in patient with longstandi ng chronic LBP [id number] Jason Irizarry MD Main Office [address] [place] [address] 03/05/2016 08:38:37 03/05/2016 09:56:35 Type 2 diabetes mellitus without complication 020392375 E11.9 Essential hypertension 38295995 I10 Low back pain 979833871 M54.5 Has had 6 back surgeries. Last was [address] Luque. [id number] Jason Irizarry MD Main Office [address] [place] [address] 03/14/2016 14:11:21 03/14/2016 15:21:39 Pre-surgery evaluation 880313906 Z01.818 Leukocytes in urine 2757 93483 R82.71 Type 2 margareth betes mellitus without complication 524509943 E11.9 Essential hypertension 10496398 I10 Obstructiv e sleep apnea syndrome 22250669 G47.33 [id number] Cora Lara PA-C Main Office [address] [address] [place] [address] 05/05/2016 12:40:09 05/05/2016 14:03:25 Transition of care 8678809557 105 Z75.8 will attempt to get labs from snf for completene ss / comparison History of excision of lamina of lumbar vertebra for decompression of spinal cord 726785536 Z98.890 and fusion 04/04/[address] Luque ----- s/p surgery x 2 and then fluid aspiration - cont. f/u c him Essential hypertension 42559843 I10 stable off meds s/p gastric sleeve Type 2 margareth betes mellitus without complication 038677111 E11.9 fsbs stable lately Obstructiv e sleep apnea syndrome 83869802 G47.33 Leukocytosis 593569091 D 72.829 pt states had elevated wbc ct and mild post op anemia - will check cbc [id number] Jason Irizarry MD Main Office [address] [address] [place] [address] 07/02/2016 13:46:40 07/02/2016 14:50:16 Insomnia 198016398 G47.00 Fatigue 00528071 R53.83 Loss of appetite 1404704 6 R63.0 Fever 514608841 R50.9 [id number] Jason Irizarry MD Main Office [address] [address] [place] [address] 07/30/2016 12:42:31 07/30/2016 13:39:57 Chronic pain syndrome 860365385 G89.4 Dysuria 76639603 R30.0 Type 2 margareth betes mellitus 03019850 E11.9 Screening for malignant neoplasm of breast 737427464 Z12.39 Insomnia 639747618 G47.0 0 [id number] Mattie Lara PA-C Main Office [address] [address] [place] [address] 08/29/2016 12:17:56 08/29/2016 13:50:56 Microcytic anemia 110177587 D50.9 Check stool for occult blood at . Test iron and retest CBC. Pt. will return for lab f/u and will determine if GI referral is needed. Essential hypertension 87373809 I10 Lower sodium and caffeine. Test BP in 1 week. [id number] Jason Irizarry MD Main Office [address] [address] [place] [address] 08/30/2016 10:26:06 08/30/2016 10:27:27 Screening for malignant neoplasm of colon 216569733 Z12.11 [id number] Mattie Lara PA-C Main Office [address] [address] [place] [address] 09/05/2016 09:54:11 09/05/2016 10:35:40 Anemia due to unknown mechanism 33017084 D64.9 Pt has been taking her iron 325 mg supplement s once a day. Will try BID and repeat CBC and iron in 4-6 weeks. Essential hypertension 96265161 I10 Pt's blood pressure is still elevated on today's visit. Pt will be started on an ACEi. Pt was educated on continuing to limit her caffeine and salt intake as well as to exercise to lower her bp. Return with BP readings from home in 4 weeks. [id number] Mattie Lara PA-C Main Office [address] [facility] [address] [facility] [place] [address] 10/01/2016 10:23:51 10/01/2016 11:33:04 Anemia due to unknown mechanism 00997576 D64.9 Pt has been taking iron 325 [...] in 10 yrs from previous Essential hypertension 72811329 I10 BP is stable on lisinopril 10mg, [...] should be re-checked Needs infl uenza immunization 304068126 Z23 - Pt will receive flu shot today Body mass index 30+ - obesity 435591737 Z68.30 - Pt will continue to loss weight through portion control- Pt is unable to exercise at this time due to extensive back surgery which she is still covering from [id number] Jason Irizarry MD Main Office [address] [facility] [address] [place] [address] 11/03/2016 12:37:50 11/03/2016 14:56:18 Adult health examination 807428262 Z00.00 Type 2 margareth betes mellitus without complication 381365896 E11.9 Body mass index 30+ - obesity 937005234 Z68.31 E66.9 s/p bariatric surgery. Continued follow up with Dr. Terrell. Spinal coy nosis of lumbar region 60836389 M48.06 Major depr essive disorder 182247828 F32.9 Still with residual symptoms. followed by psychiatry Chronic pain syndrome 37 5113405 G89.4 stable off of opioids. Essential hypertension 46787351 I10 STable on present medication s. Obstructiv e sleep apnea syndrome 70315692 G47.33 Stable off of treatment after weight loss (bariatric surgery) [id number] Jason Irizarry MD Main Office [address] [address] [place] [address] 05/01/2017 10:25:14 05/01/2017 12:07:41 Diabetic peripheral neuropathy 648917713 E11.40 Screening for malignant neoplasm of breast 707687393 Z12.31 last done 2008; refuses Hepatitis C screening 41 9980054 Z11.59 Essential hypertension 37908562 I10 STable on present medication s. Spinal coy nosis of lumbar region 83245536 M48.061 Obstructiv e sleep apnea syndrome 64038172 G47.33 Stable off of treatment after weight loss (bariatric surgery) Polyneuropathy 80848101 A69.22 Obesity 040464667 E66.9 Body mass index 30+ - obesity 629049114 Z68.30 s/p bariatric surgery. Continued follow up with Dr. Terrell. [id number] Jason Irizarry MD Main Office [address] [address] [place] [address] 08/22/2017 10:26:28 08/22/2017 11:25:44 Contusion of lower limb 70681530 S80.12XA At [facility] ed risk for falls 528193534 Z91.81 Fall 4807624 W18.2XXA [id number] Jason Irizarry MD Main Office [address] [address] [place] [address] 11/06/2017 10:02:23 11/06/2017 11:45:45 Diabetic peripheral neuropathy 858846921 E11.40 Adult [facility] th examination 706174382 Z00.00 Needs infl uenza immunization 246052904 Z23 Hyperlipidemia 16711982 E78.5 Body mass index 30+ - obesity 352791415 E66.01 Z68.35 s/p bariatric surgery. Continued follow up with Dr. Terrell. Muscle pain 50230408 M79 .1 Mild persi stent allergic asthma 9421260612 7664268 J45.30 [id number] Jason Irizarry MD Main Office [address] [address] [place] [address] 05/24/2018 14:09:52 05/24/2018 15:24:14 Type 2 diabetes mellitus without complication 768637091 E11.9 Diabetic p eripheral neuropathy 049918523 E11.40 Body mass index 30+ - obesity 836861804 E66.01 s/p bariatric surgery. Continued follow up with Dr. Terrell. [id number] Thaddeus Jackson MD Main Office [address] [facility] [address] [place] [address] 11/17/2018 10:06:59 11/17/2018 11:32:24 Adult health examination 921827129 Z00.00 Pt is in good general health. Social and family history reviewed. Immunizati ons reviewed, administer ed the flu shot. She is upt to date on dental and eye providers, mammogram --pt refuses, aware we could be missing early or nonpalpabl e breast cancer. Pt states colon up to date - will get report , Reviewed diet and exercise. Needs infl uenza immunization 797793181 Z23 Body mass index 30+ - obesity 445746807 Z68.36 pt tries to eat healthy. She has had gastric bypass in the past. Hard to exercise due to chronic disabling back pain. Major depr essive disorder 256909563 F32.9 seeing psychiatri and is on TCA, currently stable Essential hypertension 21805656 I10 on lisinopril , BP at goal Hyperglycemia 14645459 R 73.9 Myalgia/my ositis - multiple 107669777 M79.10 followp in 6 weeks Paresthesi a of upper limb 68877208 R20.2 Obesity 071774503 E66.9 [id number] Thaddeus Jackson MD Main Office [address] [facility] [address] [place] [address] 12/30/2018 13:01:11 12/30/2018 13:44:25 Pre-surgery evaluation 873737596 Z01.818 Patient is at low risk for [...] pending Pain of le ft shoulder joint 3332945351 0299545 M25.512 surgery due to severely diminished ROM and chronic pain [id number] Jason Irizarry MD Main Office [address] [address] [place] [address] 01/06/2019 09:45:38 01/20/2019 08:54:26 [id number] Jason Irizarry MD Main Office [address] [address] [place] [address] 01/16/2020 10:13:56 01/16/2020 11:50:06 Adult health examination 906767415 Z00.00 Essential hypertension 04899727 I10 STable on present medication s. Hyperlipidemia 18096958 E78.5 Fatigue 39608096 R53.83 Diabetic p eripheral neuropathy 762312472 E11.40 Spinal coy nosis of lumbar region 64456705 M48.061 Obstructiv e sleep apnea syndrome 70242761 G47.33 Stable off of treatment after weight loss (bariatric surgery) Body mass index 30+ - obesity 873846998 E66.01 Z68.35 s/p bariatric surgery. Continued follow up with Dr. Terrell. [id number] Jason Irizarry MD Main Office [address] [address] [place] [address] 03/22/2020 08:51:20 04/10/2020 14:58:58 [id number] Cora Lara PA-C Main Office [address] [address] [place] [address] 10/11/2020 10:08:45 10/11/2020 11:24:52 Pre-surgery evaluation 873314425 Z01.818 Cataract 517592746 H25.0 13 Essential hypertension 32221308 I10 stable bp, cont med as dir, check bmp below Hyperlipidemia 80519198 E78.5 Diabetic p eripheral neuropathy 658391723 E11.40 diet / ex control, pending pe c pcp in a few months will check A1c at pt request d/t wt gain cont f/u c eye md will get podiatry eval - see below Spinal coy nosis of lumbar region 51097896 M48.061 stable, s/p multiple back surgeries Obstructiv e sleep apnea syndrome 66935815 G47.33 cont cpap as dir, cont f/u c sleep med Body mass index 40+ - severely obese 967771093 E66.01 Z68.41 Severe dry skin 20289883 2 L85.3 on feet - no sig help c otc moist lotion - trial c amlactin - encouraged pt to f/u c podiatry - see above [id number] Thaddeus Jackson MD Main Office [address] [facility] [address] [facility] [place] [address] 01/16/2021 09:44:41 01/16/2021 11:13:19 Adult health examination 364346193 Z00.00 next colon 2022, defers pap/mammo Essential hypertension 52736399 I10 stable bp, cont med as dir, check cmp Hyperlipidemia 71218153 E78.5 Diabetic p eripheral neuropathy 309364683 E11.40 diet / ex control p bariatric surgery cont f/u c eye md cont f/u c podiatry - pending Fara - your A1c is slowly climbing, but fortunatel y not elevated too high to begin medication for this at this time. Rec. weight loss thru low carb diet and increased aerobic exercise. Spinal coy nosis of lumbar region 16361237 M48.061 stable, s/p multiple back surgeries Obstructiv e sleep apnea syndrome 69508050 G47.33 cont bipap as dir, cont f/u c sleep med Body mass index 40+ - severely obese 566168725 E66.01 Z68.41 Varicella vaccination 68 608251 Z23 Screening for malignant neoplasm of breast 021089787 Z12.39 pt declines mammogram Depressive disorder 3548 9007 F32.0 pending start duloxetine thru psychiatri st - cont see q 3 months, no see therapist Severe dry skin 09058945 2 L85.3 sig better c amlactin - encouraged pt to f/u c podiatry - see above [id number] Thaddeus Jackson MD Main Office [address] [facility] [address] [facility] [place] [address] 07/04/2021 09:43:36 07/04/2021 10:58:22 Pre-surgery evaluation 136075005 Z01.818 Pain of ri ght shoulder joint 8799787887 5573247 M25.511 Essential hypertension 24532812 I10 bp on low side of normal ---- +/- orthostati c - rec cut lis 10mg in half === 5mg qd Depressive disorder 3548 9007 F32.0 stable, cont duloxetine thru psychiatri st - cont see q 3 months, no see therapist Diabetic p eripheral neuropathy 920486705 E11.40 diet / ex control p bariatric surgery cont f/u c eye cont f/u c podiatry Fara - your A1c is slowly climbing, but fortunatel y not elevated too high to begin medication for this at this time. Rec. weight loss thru low carb diet and increased aerobic exercise. - last A1c 6.2 on 10.11.20 - will get recheck Obstructiv e sleep apnea syndrome 55548208 G47.33 cont bipap as dir, cont f/u c sleep med 07.07 - consider bringing bipap to above procedure Spinal coy nosis of lumbar region 77852086 M48.061 stable, s/p multiple back surgeries - pt has tolerated anesthesia well in the past Body mass index 40+ - severely obese 870130579 E66.01 Z68.41 Psoriatic arthritis 1563 97695 L40.50 cont med as dir, cont f/u c rheum & derm [id number] Thaddeus Jackson MD Main Office [address] [facility] [address] [place] [address] 10/09/2021 08:17:22 10/09/2021 09:37:27 Essential hypertension 30655521 I10 bp & cr stable, cont med as dir Hyperlipidemia 49264020 E78.5 tolerating statin, recheck lipids Diabetic p eripheral neuropathy 650068844 E11.40 diet / ex control p bariatric surgery cont f/u c eye cont f/u c podiatry Fara - your A1c is slowly climbing, but fortunatel y not elevated too high to begin medication for this at this time. Rec. weight loss thru low carb diet and increased aerobic exercise. - last A1c 6.2 - will get recheck Pain of ri ght shoulder joint 1743323082 5333250 M25.511 s/p sx, cont sling/PT as dir, cont f/u c ortho - next month [id number] Eric Castillo MD Tele[facility] [address] [facility] [address] [place] [address] 02/19/2022 12:49:57 02/19/2022 14:04:56 COVID-19 953234002 U07.1 hydration, rest, if feeling better quarantine x 5 days then mask for 5 days. If not better after 5 days quarantine for full 10 days. Tylenol/ ibuprofen as needed, OTC cough med as needed. Call/ return for worsening sx or concerns.S top atorvastat in while on paxlovid. Asthma 016558919 J45.90 9 will provide refill inhaler to use as needed Essential hypertension 35136957 I10 Continue current meds [id number] Eric Castillo MD Main Office [address] [facility] [address] [place] [address] 02/25/2022 08:28:51 02/25/2022 09:10:09 COVID-19 420335589 U07.1 s/p covid diagnosed on 02/18/22. Pneumonitis 201464106 J1 8.9 will tx for possible secondary infection as she is high risk. Zpak as directed, prednisone burst as directed. hydration, rest, tea with honey, continue albuterol inhaler use.- ED precaution s: Diff breathing, fever, unable to tolerate PO etc. Diabetic p eripheral neuropathy 471076266 E11.40 Essential hypertension 80063103 I10 Continue current meds Obstructiv e sleep apnea of adult 9442278114 103 G47.33 [id number] Thaddeus Jackson MD Main Office [address] [facility] [address] [place] [address] 03/13/2022 13:02:22 03/13/2022 14:28:25 Adult health examination 752273777 Z00.00 pt defers pap Asthma 628792753 J45.90 9 stable Chronic pain syndrome 37 4286792 G89.4 see below Diabetic p eripheral neuropathy 616502953 E11.40 diet / ex control p bariatric [...] encourage if a1c cont to climb Hyperlipidemia 86129018 E78.5 lipids nl, cont statin as dir Obstructiv e sleep apnea syndrome 63667931 G47.33 cont bipap as dir, cont f/u c sleep med Psoriatic arthritis 1563 51413 L40.50 cont med as dir, cont f/u c rheum - f/u c derm prn Vitamin D deficiency 347 98850 E55.9 Spinal coy nosis of lumbar region 61042857 M48.061 stable, s/p multiple back surgeries - pt has tolerated anesthesia well in the past Has had 6 back surgeries. Last was [address] Luque. cont hep rec tyl 500mg 1-2 tabs up to 3x/day, reserve naproxen for prn Body mass index 40+ - severely obese 165051094 E66.01 Z68.41 Screening for malignant neoplasm of colon 670113054 Z12.11 Screening for malignant neoplasm of breast 501535757 Z12.39 Iron defic iency anemia 23121731 D50.9 Hypertensi ve renal disease 24891240 I12.9 bp stable Chronic ki dney disease stage 2 483635130 N18.2 Depressive disorder 3548 9007 F32.0 stable, cont duloxetine thru psychiatri st - cont see q 3 months, no see therapist Vitamin B1 2 deficiency (non anemic) 04857888 E53.8 [id number] Thaddeus Jackson MD Main Office [address] [place] [address] 08/06/2022 13:00:34 08/06/2022 14:24:14 Diabetic peripheral neuropathy 088002481 E11.40 diet / ex control p bariatric [...] stable at 6.3 Gastroesop hageal reflux disease 013923960 K21.9 stable, cont ppi as dir, seen by gi - pending egd/colon in . Chronic ki dney disease stage 2 082182647 N18.2 Hypertensi ve renal disease 00758998 I12.9 bp stable, cont med as dir Psoriatic arthritis 1563 34737 L40.50 stable - cont med as dir, cont f/u c rheum - f/u c derm prn Iron defic iency anemia 92022889 D50.9 mild, persistent d/t donates blood (platelets ) q o wkcont iron c vit c daily Spinal coy nosis of lumbar region 20713466 M48.061 stable, s/p multiple back surgeries - pt has tolerated anesthesia well in the past Has had 6 back surgeries. Last was [address] Luque. cont hep rec tyl 500mg 1-2 tabs up to 3x/day, reserve naproxen for prn 6.23 - ambulating better c UpWalker [id number] Thaddeus Jackson MD Main Office [address] [address] 12/08/2022 09:53:06 12/08/2022 11:34:13 Needs influenza immunization 671205488 Z23 Spinal coy nosis of lumbar region 71518408 M48.061 stable, s/p multiple back surgeries - [...] o/n Chronic ki dney disease stage 2 381284167 N18.2 Hypertensi ve renal disease 44389333 I12.9 bp elevated but likely d/t pain, cont med as dir, recheck next month Gastroesop hageal reflux disease 196495833 K21.9 stable, cont ppi as dir, seen by gi - pending egd/colon in 12.08 - had egd = stable, but colon was full of stool - needs repeat next year p double split prep - see below Constipation 28885926 K5 9.00 likely d/t iron qd - but in light of above, rec miralax qd (has been taking ~ wkly lately) == 1/2-1 scoop qd Iron defic iency anemia 45443970 D50.9 mild, persistent d/t donates blood (platelets ) q o wkcont iron c vit c daily12.08 - see above, encouraged pt to call gi to get f/u colonoscop y in a few months as opposed to 1 year == if recheck labs are normal then stop iron supp, and may need miralax qod instead Red left eye [id number] 4971921 H57.89 s/p scratched cornea - cont drops as per eye md, next f/u next wk [id number] Thaddeus Jackson MD Main Office [address] [address] 01/12/2023 10:06:53 01/12/2023 12:36:20 Hypertensive renal disease 05262775 I12.9 bp elevated but likely d/t pain, cont med as dir, recheck next month 01/12/23: BP stable in office today Diabetic p eripheral neuropathy 772550350 E11.40 diet / ex control p bariatric [...] bid as cruz Chronic pain syndrome 37 6441802 G89.4 see below Psoriatic arthritis 1563 44724 L40.50 stable - cont humira as dir, cont f/u c rheum - f/u c derm prntreated w/ corticoste roid injections in right first MCP 11. - had labs for sjogrens - encouraged pt to f/u c rheum (unsure of results) Obstructiv e sleep apnea syndrome 81202332 G47.33 cont bipap as dir, cont f/u c sleep med Spinal coy nosis of lumbar region 24428758 M48.061 stable, s/p multiple back surgeries - [...] turned pt away, pending neurology referral in [facility] l c increasing cylcobenza monalisa to 10mg since not sleeping well - 5mg am, 5mg afternoon, 10mg qhs Leukocytosis 789871511 D 72.829 pt states had elevated wbc ct and mild post op anemia - will check cbc Dry eyes 561698121 H04.1 23 cont meds, f/u c eye ? d/t underlying sjogrens - encouraged pt to f/u c rheum (see above) Depressive disorder 5744 6251 F32.0 stable, cont duloxetine & bupropion & amitriptyl ine thru psychiatri st - cont see q 3 months, no see therapist Chronic ki dney disease stage 2 534006462 N18.2 [id number] JEANMARIE KOWALSKI Main Office [address] [facility] [address] [facility] [place] [address] 02/20/2023 10:02:09 02/20/2023 10:23:15 Upper respiratory infection 11420103 J06.9 x5 days of a productive cough [...] take tylenol for any discomfort as directed [id number] Thaddeus Jackson MD Main Office [address] [facility] [address] [facility] [place] [address] 04/13/2023 09:40:46 04/13/2023 11:19:11 Adult health examination 260793616 Z00.00 pt defers pap & mammopt had colonoscop y 10.23 - but aborted d/t full of stool - rec recheck 1 yr, encouraged pt to call them sooner - printed colon report for pt Venereal d isease screening 798786491 Z11.3 Z72.89 F03.90 Mild memor y disturbance 774751474 R41.3 Required work up for referral to [facility].1. Imaging: Provider leave the desired imaging order, and delete the other (MRI or CT)2. Labs3. Perform 6CIT or MMSE mother c h/o dementia mid 60s Arthritis of first carpometacarpal joint of right hand [id number] 709921 M13.841 pending see ATC in a few days for likely maurilio injxn - meanwhile, rec trial of thumb spica - printed for pt Hypertensi ve renal disease 04203564 I12.9 bp elevated but likely d/t pain, cont med as dir, recheck next month 01/12/23: BP stable in office today 2.24 - stable Diabetic p eripheral neuropathy 429508555 E11.40 diet / ex control p bariatric [...] check pending labs Iron defic iency anemia 10353574 D50.9 mild, persistent d/t donates blood (platelets [...] a few times/wk Bone density finding 385 990888 M85.89 Body mass index 40+ - severely obese 394093090 E66.01 Z68.41 Chronic ki dney disease stage 2 661618338 N18.2 Mild major depression, single episode 61387563 F32.0 stable, cont duloxetine & bupropion & amitriptyl ine thru psychiatri st - cont see q 3 months, no see therapist [id number] Thaddeus Jackson MD Main Office [address] [facility] [place] [address] 05/11/2023 10:49:57 05/11/2023 12:07:58 Mild memory disturbance 609086773 R41.3 Required work up for referral to [facility] Disorder Program.1. Imaging: Provider leave the desired imaging order, and delete the other (MRI or CT)2. Labs3. Perform 6CIT or MMSE mother c h/o dementia mid 60s 3.24 - pending see specialist - gave phone # and encouraged her to call Psoriatic arthritis 1563 69151 L40.50 stable - cont humira as dir, cont f/u c rheum - f/u c derm prntreated w/ corticoste roid injections in right first MCP 11.23 - had labs for sjogrens - encouraged pt to f/u c rheum (unsure of results) 3.24 - cont f/u c ATC - next is tomorrow, pending begin enbrel Spasm of back muscles 20 2362689 M62.830 pt has been on flexeril in past - requests add'l Spinal coy nosis of lumbar region 87831764 M48.061 stable, s/p multiple back surgeries - [...] turned pt away, pending neurology referral in [facility] l c increasing cyclobenza monalisa to 10mg since not sleeping well - 5mg am, 5mg afternoon, 10mg qhs 3.24 - printed neuro order to call him in [place] [id number] Thaddeus Jackson MD Main Office [address] [facility] [address] [place] [address] 07/09/2023 10:37:44 07/09/2023 12:19:17 Mild memory disturbance 561774389 R41.3 Required work up for referral to [...] wks for re-eval Diabetic p eripheral neuropathy 616033013 E11.40 diet / ex control p bariatric surgery -- Continued follow up with Dr. Trerell. cont f/u c eye md - last [...] - recheck labs (overdue) Psoriatic arthritis 1563 09792 L40.50 stable - cont humira as dir, [...] note 2.24 Spasm of back muscles 20 1371789 M62.830 pt has been on flexeril in past - requests add'l 5.24 - sleeps better on prn m relaxer Spinal coy nosis of lumbar region 26628164 M48.061 stable, s/p multiple back surgeries - [...] turned pt away, pending neurology referral in [facility] l c increasing cyclobenza monalisa to 10mg since not sleeping well - 5mg am, 5mg afternoon, 10mg qhs 3.24 - printed neuro order to call him in [place] 5.24 - advised by [place] neurosurge on to see local neurologis t = but no consult note to review - will attempt to getmeanwhkaye le, will get pmr re-eval = looks like she last saw pssp 2016 = will change to Dr Oneal [id number] Thaddeus Jackson MD Main Office [address] [facility] [address] [place] [address] 08/17/2023 13:47:25 08/17/2023 15:13:42 Mild memory disturbance 654320346 R41.3 Required work up for referral to [...] cont as dir Diabetic p eripheral neuropathy 678827363 E11.40 diet / ex control p bariatric [...] mounjaro Spinal coy nosis of lumbar region 67361214 M48.061 stable, s/p multiple back surgeries - [...] turned pt away, pending neurology referral in [facility] l c increasing cyclobenza monalisa to 10mg since not sleeping well - 5mg am, 5mg afternoon, 10mg qhs 3.24 - printed neuro order to call him in [place] 5.24 - advised by [place] neurosurge on to see local neurologis t = but no consult note to review - will attempt to alfonso stroud, will get pmr re-eval = looks like she last saw pssp 2016 = will change to Dr Oneal 7.24 - seen by pmr - had xray - next f/u 8.12 Hyperlipidemia 81388836 E78.5 lipids nl, cont statin as dir [id number] Thaddeus Jackson MD Telehealt h [address] [facility] [address] [place] [address] 11/10/2023 14:23:35 11/11/2023 10:02:02 Obstructive sleep apnea syndrome 83991661 G47.33 cont bipap as dir, cont f/u c sleep med Mild neuro cognitive disorder 122743924 G31.84 Required work up for referral to [...] - thank you Diabetic p eripheral neuropathy 870122940 E11.40 diet / ex control p bariatric [...] 9.28.24 Spinal coy nosis of lumbar region 93748281 M48.061 stable, s/p multiple back surgeries - [...] turned pt away, pending neurology referral in [facility] l c increasing cyclobenza monalisa to 10mg since not sleeping well - 5mg am, 5mg afternoon, 10mg qhs 3.24 - printed neuro order to call him in [place] 5.24 - advised by [place] neurosurge on to see local neurologis t = but no consult note to review - will attempt to alfonso stroud, will get pmr re-eval = looks like she last saw [facility] 2016 = will change to Dr Oneal 7.24 - seen by pmr - had xray - next f/u 8.12 9.24 - had lumbar mri - cont f/u c pmr - pending R SI joint injxnappar ently she has not refilled her cyclobenza monalisa for ~ 6 months - so will take off her med list Psoriatic arthritis 1563 93287 L40.50 stable - cont humira as dir, [...] note 2.24 Mild major depression, single episode 86194656 F32.0 stable, cont duloxetine & bupropion & [...] neuropsych rec.pendin g see Dr. Montero on [id number] Thaddeus Jackson MD Main Office [address] [facility] [address] [place] [address] 11/23/2023 10:10:41 11/23/2023 11:28:04 Diabetic peripheral neuropathy 583604682 E11.40 diet / ex control p bariatric [...] check outstandin g labs as directed Asthma 439346507 J45.90 9 10.24 - pt requests refill Gastroesop hageal reflux disease 719814693 K21.9 stable, cont ppi as dir, seen by gi - pending egd/colon in 12.08 10. - had egd = stable, but colon was full of stool - needs repeat next year p double split prep - see below 10.24 - pt requests refill Mild neuro cognitive disorder 475115556 G31.84 Required work up for referral to [...] dose to help prevent withdrawal see tucker clarke f/u c Dr. Ortiz on Thursday - she will bring a friend will fwd copy of this note to geriatrics , neuropsych & psychiatri stDrRa Montero - please communicat e back to us upon receipt of this note - advise of your suggestion s as well - thank you 1024 - reviewed geriatrics note - pt states is feeling better, psych lowered amitriptyl ine from 200 to 150mg qhs x past 2 wks --- pt sounds sharper to me today will fwd copy of this note to geriatrics , neuropsych & psychiatri [facility] nosis of lumbar region 79364685 M48.061 stable, s/p multiple back surgeries - pt has tolerated anesthesia well in the past Has had 8 back surgeries. Last was [address] Luque. cont hep rec tyl 500mg 1-2 tabs up to 3x/day, reserve naproxen for prn 6.23 - ambulating better c [facility]Walker 10.23 - worse pain lately, will get [facility] pain eval - to consider neural stimulator meanwhile, cont duloxetine as dir, cont gbn - has been on 900mg tid, but trial c prn m relaxer, cont alt ice/heat, cont salonpas - but rec change to o/n 11.23 - [facility] turned pt away, [place] c increasing cyclobenza monalisa to 10mg since not sleeping well - 5mg am, 5mg afternoon, 10mg qhs 3.24 - printed neuro order to call him in [place] 5.24 - advised by [place] neurosurge on to see local neurologis t [...] of this ov note to PMR Hyperlipidemia 31895083 E78.5 lipids nl, cont statin as dir [id number] Thaddeus Jackson MD Main Office [address] [facility] [address] [facility] [place] [place] [address] 02/22/2024 10:02:36 02/22/2024 11:20:54 Diabetic peripheral neuropathy 826790454 E11.40 diet / ex control p bariatric [...] f/u c eye Mild neuro cognitive disorder 085340685 G31.84 Required work up for referral to [...] to help prevent withdrawal see tucker sheldon belowpentiara clarke f/u c Dr. Ortiz on Thursday - she will bring a friend will fwd copy of this note to geriatrics , neuropsych & psychiatri TeodorarRa Montero - please communicat e back to us upon receipt of this note - advise of your suggestion s as well - thank you 1024 - reviewed geriatrics note - pt states is feeling better, psych lowered amitriptyl ine from 200 to 150mg qhs x past 2 wks --- pt sounds sharper to me today will fwd copy of this note to geriatrics , neuropsych & psychiatri st 1.25 - cont f/u c geriatrics in a few weeks Spinal coy nosis of lumbar region 44521634 M48.061 stable, s/p multiple back surgeries - [...] turned pt away, pending neurology referral in [facility] l c increasing cyclobenza monalisa to 10mg since not sleeping well - 5mg am, 5mg afternoon, 10mg qhs 3.24 - printed neuro order to call him in [place] 5.24 - advised by [place] neurosurge on to see local neurologis t [...] f/u c PMR Vitamin D deficiency 347 06658 E55.9 Hypertensi ve renal disease 86576511 I12.9 bp elevated but likely d/t pain, cont med as dir, recheck next month 01/12/23: BP stable in office today 1.25 - bp stable, cont med as dir, pending check labs p visit Chronic ki dney disease stage 2 275580852 N18.2 Hyperlipidemia 65094789 E78.5 lipids nl, cont statin as dir [id number] Thaddeus Jackson MD Main Office [address] [facility] [address] [place] [address] 04/14/2024 10:20:30 04/14/2024 11:31:24 Adult health examination 067130305 Z00.00 pt defers pap & mammopt had colonoscop y 10.23 - but aborted d/t full of stool - rec recheck 1 yr, encouraged pt to call them sooner - printed colon report for pt had labs done 1.6.25 but [facility] didn't do a1c or lipids Diabetic p eripheral neuropathy 019427307 E11.40 diet / ex control p bariatric [...] microalb last month Mild neuro cognitive disorder 074160235 G31.84 Required work up for referral to [...] /psych Spinal coy nosis of lumbar region 42241268 M48.061 stable, s/p multiple back surgeries - [...] turned pt away, pending neurology referral in [facility] l c increasing cyclobenza monalisa to 10mg since not sleeping well - 5mg am, 5mg afternoon, 10mg qhs 3.24 - printed neuro order to call him in [place] 5.24 - advised by [place] neurosurge on to see local neurologis t [...] f/u c PMR Vitamin D deficiency 347 44053 E55.9 stable, cont supp as dir Hypertensi ve renal disease 66811040 I12.9 bp elevated but likely d/t pain, cont med as dir, recheck next month 01/12/23: BP stable in office today 1.25 - bp stable, cont med as dir, pending check labs p visit Chronic ki dney disease stage 2 333600656 N18.2 Hyperlipidemia 95638567 E78.5 lipids nl, cont statin as dir 2.25 - recheck Cough 55394560 R05.9 + h/o pna but no h/o asthmamost likely cough d/t pnd - see below - but back up plan -- if no better next week then check cxrhas prn alb at homecont mucinex Acute sinusitis 46282960 J01.90 recommend probiotics while on abxalso rec prn ns spray Body mass index 40+ - severely obese 616150743 E66.01 Z68.41 Moderate m ajor depression 070234 F32.1 stable, cont duloxetine & bupropion & [...] fairly stable, cont meds, f/u c psych [id number] Thaddeus Jackson MD Main Office [address] [facility] [address] [place] [address] 08/15/2024 12:38:32 08/15/2024 13:50:36 Diabetic peripheral neuropathy 728486563 E11.40 diet / ex control p bariatric [...] c eye 2.25 - had labs done 1.08.10 but [facility] didn't do a1c or lipids - recheck a1cnl microalb last month 6.25 - a1c down to 6.4 despite pred taper from rheumcont metformin 750mg bidrec fasting labs > 3 months Psoriatic arthritis 1563 01920 L40.50 stable - cont humira as dir, [...] c ATC - rev last ov note 2 6. - used to take enbrel, humiracont pred taper as dirpending cosentyxco nt f/u c rheum as dir Hypertensi ve renal disease 17411187 I12.9 bp elevated but likely d/t pain, cont med as dir, recheck next month 01/12/23: BP stable in office today 6.25 - bp stable, cont med as dir, pending check labs ac next visit Chronic ki dney disease stage 2 631358721 N18.2 Pain of ri ght shoulder joint 2086683480 7005508 M25.511 265353 s/p sx, cont sling/PT as dir, cont f/u c ortho - next month 6.25 - prog worse over past 6 months - now cannot lay on it - will get ortho re-eval [id number] Thaddeus Jackson MD Main Office [address] [facility] [address] [place] [address] 12/01/2024 09:42:14 12/01/2024 11:08:32 Influenza vaccine needed [id number] 106 Z23 65 YEARS AND OLDER Diabetic p eripheral neuropathy 777999159 E11.40 diet / ex control p bariatric [...] > 3 months Hypertensi ve renal disease 59173290 I12.9 bp elevated but likely d/t pain, cont med as dir, recheck next month 01/12/23: BP stable in office today 6.25 - bp stable, cont med as dir, pending check labs ac next visit 10.25 - bp low, fort. is not orthostati c - but given recent wt loss, rec decrease lis from 10mg to 5mg qd Chronic ki dney disease stage 2 238511755 N18.2 Spinal coy nosis of lumbar region 49308113 M48.061 stable, s/p multiple back surgeries - pt has tolerated anesthesia well in the past Has had 8 back surgeries. Last was [address] Luque. cont hep rec tyl 500mg 1-2 tabs up to 3x/day, reserve naproxen for prn 6.23 - ambulating better c [facility] 10.23 - worse pain lately, will get [facility] pain eval - to consider neural stimulator meanwhile, cont duloxetine as dir, cont gbn - has been on 900mg tid, but trial c prn m relaxer, cont alt ice/heat, cont salonpas - but rec change to o/n 11.23 - [facility] turned pt away, pending neurology referral in [facility] l c increasing cyclobenza monalisa to 10mg since not sleeping well - 5mg am, 5mg afternoon, 10mg qhs 3.24 - printed neuro order to call him in [place] 5.24 - advised by [place] neurosurge on to see local neurologis t = but no consult note to review - will attempt to getludivina stroud, will get pmr re-eval = looks like she last saw [facility] 2017 = will change to Dr Oneal [...] ly Pain of ri ght shoulder joint 1024899237 0659537 M25.511 366077 s/p sx, cont sling/PT as dir, cont [...] Name 12/01/2024 2 [place] [id number] aFra Crandall Parent [id number] Fara Crandall Parent 12/01/2024 1 [place] [employer] Fara Crandall Parent [id number] Fara Crandall Parent 12/01/2024 1 [place] [id number] Fara Crandall Parent [id number] Fara Crandall Parent 12/01/2024 2 [place] [facility] Fara J Parent [id number] Fara Crandall Parent 12/01/2024 2 [place] [facility] Fara J Parent [id number] Fara Raz Parent Notes Date Note Type Note Provider [...] in the HPI Cora Lara PA-C [address] [address], [place], [address], [facility] 11/23/2023 21:25:14 5 text/html Diabetes F/UReported by PatientHPIFor context, patient reportsnot taking aspirin dailybut reportsseeing eye doctor regularlyandchecking feet regularly. For associated symptoms, patient reportsno weight gain,no headaches,no increased appetite,no increased urination, andno blurred vision. Cora Lara PA-C [address] [address], [place], [address], [facility] 02/22/2024 11:24:10 5 text/html Medicare Annual Wellness VisitReported by [...] reportsgood lighting in the home. Here for AWV Cora Lara PA-C [address] [address], [place], [address], [facility] 04/14/2024 11:42:40 5 text/html Diabetes F/UReported by PatientHPIFor context, patient reportsnot taking aspirin dailybut reportsseeing eye doctor regularlyandchecking feet regularly. For associated symptoms, patient reportsno weight gain,no headaches,no increased appetite,no increased urination, andno blurred vision. Cora Lara PA-C [address] [address], [place], [address], [facility] 08/16/2024 19:14:46 5 text/html here for f/u DMhas lost 7 lbs - walking, diet - less portions, mindful of food [id number] stable at 6.5in general feeling better - babysitting great niece 3x/wk Cora Lara PA-C [address] [address], [place], [address], [facility] 12/01/2024 12:39:06 OBGyn Episode No OBEpisode recorded.
== END 2025-02-07 13:39 | disposition home or self-care (01) ==
LOC: HO.HPHYS 12:29
PROVIDERS: PCP Physician Assistant Medical; Visit Provider Physician Assistant
DX: M54.16 Radiculopathy, lumbar region (principal); M47.816 Spondylosis without myelopathy or radiculopathy, lumbar region
CPT/HCPCS: 99213

== ENCOUNTER → 2025-02-07 12:29 | Outpatient (BNVA) | payer MEDICARE, SELFPAY | PROVIDERS: PCP Physician Assistant Medical; Visit Provider Physician Assistant | DX: M54.16 Radiculopathy, lumbar region (principal); M47.816 Spondylosis without myelopathy or radiculopathy, lumbar region | CPT/HCPCS: 99212 ==